=== PATIENT | male | born 1950 | race Caucasian/White ===

== ENCOUNTER → 2016-05-28 | Day surgery (SDC) | payer MEDICARE, MEDICAID ==
[~2016-05-28] MED LIST: *HYDROmorphone PF 1 MG VIAL PERIprocedural Use ONLY ONE; ACETAMINOPHEN 1000 MG/100 ML VIAL IV ONE; ALBUAER3 INH; BACT2OIN TOPICAL; BO60R RECTAL; CEPH-459 PO; CIPR-9 PO; CLIN1CAP6 PO; DILA2TAB2 PO; FISH1000 PO; GABA100C4 PO; GEMF600T PO; GLUCTAB6 PO; HYDROmorphone HCL PF 1 MG/ML VIAL IV PUSH ONE; HYDROmorphone HCL PF 1 MG/ML VIAL IV PUSH PRN; HYDROmorphone HCL PF 1 MG/ML VIAL ONE; INSULIN HUMAN REGULAR 1,000 UNITS/10 ML VIAL SQ PRN; IOHEXOL 350 MG/ML 50 ML BTL (for RAD DIAG) OTHER ONE; LACTATED RINGER'S 1000 ML IV SCH; LEVEMIR SQ; LISI10TA3 PO; METOPROLOL TARTRATE 25 MG TAB PO PRN; MIDAZOLAM HCL 2 MG/2 ML VIAL ONE; MORPHINE SULFATE 4 MG/ML INJ ONE; MULT1TAB84 PO; NOVOLOGP2 SQ; ONDANSETRON HCL 4 MG/2 ML VIAL IV PUSH ONE; ONDANSETRON HCL 4 MG/2 ML VIAL IV PUSH PRN; ONDANSETRON HCL 4 MG/2 ML VIAL ONE; OXYB5TAB10 PO; OXYC1CAP PO; PIOG15TA5 PO; PROPOFOL 200 MG/20 ML AMP IV ONE; SODIUM CHLORID 0.9% 500 ML IV SCH; SYMB160A INH; TAMS5CAP PO; TRAD5TAB PO; ZINC50TA PO; [UNRECOGNIZED DRUG - CODE] PO; [UNRECOGNIZED DRUG - CODE] TOP; ceFAZolin 1,000 MG/NS 100 ML IV SCH
[2016-05-28 12:08] VITALS: BP 158/100; PULSE 102; RESP 22; TEMP 98.8; O2SAT 99
[2016-05-28 12:38] LABS: AUTOMATED NEUTROPHIL # 4.9 TH/MM3 (1.8-7.7); BASOPHIL % 0.3 % (0.0-2.0); EOSINOPHIL % 0.7 % (0.0-4.0); HEMATOCRIT 36.2 % (39.0-51.0); LYMPH % 15.6 % (9.0-44.0); MEAN CELL VOLUME 87.6 FL (80.0-100.0); MEAN CORPUSCULAR HEMOGLOBIN 29.6 PG (27.0-34.0); MEAN CORPUSCULAR HGB CONC 33.8 % (32.0-36.0); MONO % 9.7 % (0.0-8.0); NEUT % 73.7 % (16.0-70.0); PLATELET COUNT 93 TH/MM3 (150-450); RED BLOOD COUNT 4.13 MIL/MM3 (4.50-5.90); RED CELL DISTRIBUTION WIDTH 13.9 % (11.6-17.2); WHITE BLOOD COUNT 6.6 TH/MM3 (4.0-11.0)
[2016-05-28 12:46] LABS: HEMO FLAGS AUTO DIFF
[2016-05-28 13:12] LABS: PLATELET ESTIMATE SMEAR LOW (NORMAL); PLATELET MORPHOLOGY NORMAL (NORMAL); SCAN/DIFF AUTO DIFF CONFIRMED
[2016-05-28] MEDS: *HYDROmorphone PF 1 MG VIAL PERIprocedural Use ONLY ONE ×2 (16:28→17:08)
[2016-05-28 18:00] VITALS: BP 108/84; PULSE 86; RESP 20; TEMP 97.5; O2SAT 99
--- NOTE | 2016-05-29 07:13 | MP ---
cc: CURTIS NIELSEN MD DATE OF SURGERY 05/28/2016 INDICATIONS FOR PROCEDURE This is the case of a pleasant 66-year-old gentleman with a history of bladder cancer causing right distal ureteral obstruction who is status post transurethral resection of the tumor as well as resection of some tumor involvement of the distal right ureter. The patient does have a double-J stent and presents today for cystoscopy, removal of the right double-J stent and right retrograde pyelogram. PREOPERATIVE DIAGNOSIS History of bladder cancer. POSTOPERATIVE DIAGNOSIS History of bladder cancer. ATTENDING SURGEON Curtis Nielsen MD ANESTHESIA General PROCEDURES PERFORMED Cystoscopy, right retrograde pyelogram, right ureteral stent removal. COMPLICATIONS None ESTIMATED BLOOD LOSS None SPECIMENS Right ureteral stent which was discarded. OPERATIVE PROCEDURE IN DETAIL The patient was brought to the operating room suite and placed supine on the cystoscopy table. He was then placed under general anesthesia. He was then repositioned in the dorsal lithotomy position and prepped and draped in normal sterile fashion. After an appropriate time-out was undertaken, I proceeded with cystoscopic evaluation utilizing the rigid cystoscope with the 20-German sheath and the 30 degrees lens. The previously passed right double-J stent could be seen protruding from the right ureteral orifice. There was no evidence of any recurrent tumor formation. I then grasped the end of the stent with a flexible grasping forceps and removed it in its entirety. It was carefully inspected to ascertain that no stent fragments were left behind. Next, a 6-German open-ended ureteral catheter was utilized to perform a right retrograde pyelogram. There was prompt filling and drainage of the collecting system. The bladder was drained of all irrigant fluid and the cystoscope was withdrawn. The patient tolerated the procedures without complications and was transferred to the PACU in satisfactory condition. MD JORID Nino/WILMER /4:29 PM /7:06 AM
== END | disposition home or self-care (01) ==
LOC: HSDC 11:51
PROVIDERS: ATTEND Urology
DX: Z85.51 Personal history of malignant neoplasm of bladder (principal); N13.5 Crossing vessel and stricture of ureter without hydronephrosis
CPT/HCPCS: 00910; 52005; 74420; 85025; C1769; J0131; J0690; J1170; J1815; J2250; J2270; J2405; J3010; J7120; Q9967

== ENCOUNTER 2016-08-26 00:47 | Emergency (ER) | payer MEDICARE, MEDICAID ==
[~2016-08-26] VITALS: Ht 185.4 cm; Wt 90.0 kg
[~2016-08-26 00:47] MED LIST changes: -*HYDROmorphone PF 1 MG VIAL PERIprocedural Use ONLY ONE; -ACETAMINOPHEN 1000 MG/100 ML VIAL IV ONE; -BACT2OIN TOPICAL; -CLIN1CAP6 PO; -HYDROmorphone HCL PF 1 MG/ML VIAL IV PUSH ONE; -HYDROmorphone HCL PF 1 MG/ML VIAL IV PUSH PRN; -HYDROmorphone HCL PF 1 MG/ML VIAL ONE; -INSULIN HUMAN REGULAR 1,000 UNITS/10 ML VIAL SQ PRN; -IOHEXOL 350 MG/ML 50 ML BTL (for RAD DIAG) OTHER ONE; -LACTATED RINGER'S 1000 ML IV SCH; -METOPROLOL TARTRATE 25 MG TAB PO PRN; -MIDAZOLAM HCL 2 MG/2 ML VIAL ONE; -MORPHINE SULFATE 4 MG/ML INJ ONE; -ONDANSETRON HCL 4 MG/2 ML VIAL IV PUSH ONE; -ONDANSETRON HCL 4 MG/2 ML VIAL IV PUSH PRN; -ONDANSETRON HCL 4 MG/2 ML VIAL ONE; -OXYC1CAP PO; -PROPOFOL 200 MG/20 ML AMP IV ONE; -SODIUM CHLORID 0.9% 500 ML IV SCH; -ceFAZolin 1,000 MG/NS 100 ML IV SCH
[2016-08-26 00:50] VITALS: BP 152/85; PULSE 100; RESP 20; TEMP 98.5; O2SAT 100
[2016-08-26] MEDS ORDERED: BACT2OIN TOPICAL (19:59)
[2016-08-26] MEDS ORDERED: CLIN1CAP6 PO (19:59)
[2016-08-26] MEDS ORDERED: OXYC1CAP PO (19:59)
== END 2016-08-26 02:29 | disposition left against medical advice (07) ==
LOC: NED 00:47
DX: L98.8 Other specified disorders of the skin and subcutaneous tissue (principal)
CPT/HCPCS: 99281

== ENCOUNTER 2016-08-26 18:35 | Emergency (ER) | payer MEDICARE, MEDICAID ==
[~2016-08-26] VITALS: Ht 185.4 cm; Wt 92.7 kg
[2016-08-26 18:40] VITALS: TEMP 97.8; O2SAT 98
[2016-08-26 18:45] VITALS: BP 149/96; PULSE 107; RESP 16; TEMP 97.8; O2SAT 98
[2016-08-26 19:03] VITALS: BP 140/87; PULSE 100; RESP 22; O2SAT 95
[2016-08-26] MEDS ORDERED: SULFAMETHOXAZOLE-TRIMETHOPRIM DS 800-160 MG TAB PO ONE (19:15)
[2016-08-26] MEDS ORDERED: LIDOCAINE HCL 1% 30 ML VIAL INFIL ONE (19:15)
[2016-08-26] MEDS ORDERED: CEPHALEXIN MONOHYDRATE 500 MG CAP PO ONE (19:15)
--- NOTE | 2016-08-26 19:26 | PD ---
HPI Chief Complaint: Bite or Sting Time Seen by Provider: 19:04 Travel History International Travel<30 days: No Contact w/Intl Traveler<30days: No Traveled to known affect area: No History of Present Illness HPI Patient is a 66-year-old male who presents to emergency room with complaints of bug bite to his left forearm. Patient reports that he was working outside on his home 2 days ago and was bit by a bug. Reports that the area of bug bite did get bigger today and came to a head, reports that one of his family members popped the "abscess" and had pus come out of the area. Reports that "it was too painful for her to remove the pus so I had to come here for drainage." Patient reports that his tetanus is up-to-date and he has had one in the last 4 years. The patient denies fevers or chills, reports pain and swelling to the area of his bug bite. The patient reports that he is a diabetic and the that his blood sugar has been controlled. PFSH Past Medical History Hx Anticoagulant Therapy: Yes (asa 81mg) Arthritis: Yes (joints are painful) Asthma: No Autoimmune Disease: No Blood Disorders: Yes (VARICES,BANDING IN PAST WITH ERCP) Anxiety: Yes Depression: Yes Heart Rhythm Problems: No Cancer: Yes (BLADDER) Cardiac Catheterization: Yes Cardiovascular Problems: Yes (htn on meds) High Cholesterol: Yes Chemotherapy: No Chest Pain: No Congestive Heart Failure: No Cirrhosis: Yes (END STAGE LIVER DISEASE) COPD: Yes Cerebrovascular Accident: No Diabetes: Yes Patient Takes Glucophage: No Diminished Hearing: No Deep Vein Thrombosis: Yes Endocrine: No Gastrointestinal Disorders: Yes GERD: No Genitourinary: No Headaches: No Hepatitis: Yes (C) Hiatal Hernia: No Hypertension: Yes Immune Disorder: No Implanted Vascular Access Dvce: No Kidney Stones: Yes (removed) Medical other: No Musculoskeletal: Yes (ARTHRITIS) Neurologic: Yes (NEUROPATHY LEGS) Psychiatric: No Reproductive: No Respiratory: Yes (COPD) Immunizations Current: Yes Migraines: No Pancreatitis: Yes Radiation Therapy: No Renal Failure: No Seizures: No Sickle Cell Disease: No Sleep Apnea: No Thyroid Disease: No Ulcer: No Past Surgical History Abdominal Surgery: Yes (REPAIR OF SPLEEN) AICD: No Appendectomy: Yes Arteriovenous Shunt: No Body Medical Devices: PT DENIES Cardiac Surgery: No Cholecystectomy: Yes Ear Surgery: No Endocrine Surgery: No Eye Surgery: No Genitourinary Surgery: Yes (RENAL STENTS,) Insulin Pump: No Joint Replacement: No Neurologic Surgery: Yes (BACK SURGERY X 2) Oral Surgery: No Pacemaker: No Thoracic Surgery: No Tympanostomy Tube: Yes Other Surgery: Yes (ercp banding) Social History Alcohol Use: No Tobacco Use: Yes (6 cigs) Substance Use: Yes (MARIJUNANA) Allergies-Medications (Allergen,Severity, Reaction): Coded Allergies: Codeine (Verified Allergy, Severe, breathing probs, 08/26/16) Iodinated Contrast Media (Verified Allergy, Severe, rash/flush, 08/26/16) Stadol (Verified Allergy, Severe, rash, 08/26/16) Talwin (Verified Allergy, Severe, breathing probs, 08/26/16) Reported Meds & Prescriptions Reported Meds & Active Scripts Active Bactroban Topical (Mupirocin) 2% Oint 1 Appl TOPICAL BID Oxycodone (Oxycodone HCl) 5 Mg Cap 5 Mg PO Q6H PRN Clindamycin (Clindamycin HCl) 300 Mg Cap 300 Mg PO TID 10 Days Levemir Inj (Insulin Detemir) 1,000 unit/ 10 ML Vial 30 Units SQ HS Please make a follow-up appointment in 3-4 weeks for further Rx renewals. Do not mix with any other Insulin. Pioglitazone (Pioglitazone HCl) 15 Mg Tab 15 Mg PO DAILY Dilaudid (Hydromorphone HCl) 2 Mg Tab 2 Mg PO Q6H PRN Tradjenta (Linagliptin) 5 Mg Tab 5 Mg PO DAILY Novolog Inj (Insulin Aspart) 1,000 Unit/10 Ml Vial 2-12 Units SQ ACHS Max dose at bedtime ( ) units; sugars less than 70,(0) units; sugars 150-199,(2) units; sugars 200-249,(4) units; sugars 250-299,(7) units; sugars 300-349,(10) units; sugars greater than 349,(12)units Reported Liqui-E Liq (Vitamin E) 400 Unit/15 Ml Liq 15 Ml TOP HS Multivitamin Adults (Multiple Vitamins W/ Minerals) 1 Tab 1 Tab PO DAILY Glucosamine Chondroitin (Kxpttdukwhg-Ehcakwlgtxv-Gkk C-) 1 Tab Tab 1 Tab PO BID Vitamin A 10,000 Unit Cap 10,000 Units PO DAILY Fish Oil ([place]-3 Fatty Acids) 1,000 Mg Cap 1 Cap PO BID Zinc 50 Mg Tab 50 Mg PO DAILY Gemfibrozil 600 Mg Tab 600 Mg PO BIDAC Take 30 minutes prior to breakfast and dinner. Symbicort Inh (Budesonide/Formoterol Fumarate) 160-4.5 Mcg/Act Aero 1 Puff INH Q12HR Lisinopril 10 Mg Tab 10 Mg PO DAILY Gabapentin 100 Mg Cap 100 Mg PO TID Proair Hfa 8.5 GM Inh (Albuterol Sulfate) 90 Mcg/Act Aer 1 Puff INH Q4H PRN 108 mcg/actuation Review of Systems General / Constitutional: No: Fever Eyes: No: Visual changes HENT: No: Headaches Cardiovascular: No: Chest Pain or Discomfort Respiratory: No: Shortness of Breath Gastrointestinal: No: Abdominal Pain Genitourinary: No: Dysuria Musculoskeletal: No: Pain Skin: Positive Other (abscess to left forearm), No Rash Neurologic: No: Weakness Psychiatric: No: Depression Endocrine: No: Polydipsia Hematologic/Lymphatic: No: Easy Bruising Physical Exam Narrative GENERAL: Mild distress, patient appears to be in pain SKIN: Focused skin assessment warm/dry. HEAD: Atraumatic. Normocephalic. NECK: Trachea midline. No JVD. CARDIOVASCULAR: Regular rate and rhythm. No murmur appreciated. RESPIRATORY: No accessory muscle use. Clear to auscultation. Breath sounds equal bilaterally. GASTROINTESTINAL: Abdomen soft, non-tender, nondistended. MUSCULOSKELETAL: No obvious deformities. No clubbing. No cyanosis. Patient with a 2 x 3 cm fluctuant abscess with white thick drainage to left forearm, compartments are soft, patient with good pulses, neurovascularly intact. Right upper extremity with normal exam. NEUROLOGICAL: Awake and alert. Normal speech. PSYCHIATRIC: Appropriate mood and affect; insight and judgment normal. Data Data Last Documented VS Vital Signs Date Time Temp Pulse Resp B/P Pulse Ox O2 Delivery O2 Flow Rate FiO2 08/26/16 19:03 22 08/26/16 19:03 100 140/87 95 Room Air 08/26/16 18:45 97.8 Orders Cephalexin (Keflex) (08/26/16 19:15) Sulfamet-Trimeth Ds 800-160 Mg (Bactrim (08/26/16 19:15) Oxycodone (Roxicodone) (08/26/16 19:30) Lidocaine 1% Inj (50 Ml) (Xylocaine 1% I (08/26/16 19:30) Abscess Culture And Gram Stain (08/26/16 20:06) [facility] Medical Decision Making Medical Screen Exam Complete: Yes Emergency Medical Condition: Yes Interpretation(s) Vital Signs Date Time Temp Pulse Resp B/P Pulse Ox O2 Delivery O2 Flow Rate FiO2 08/26/16 19:03 22 08/26/16 19:03 100 22 140/87 95 Room Air 08/26/16 18:45 97.8 107 16 149/96 98 Differential Diagnosis Bug bite with abscess Narrative Course Patient is a 66-year-old male who was apparently bit by a bug 2 days ago while he was working outside in his house. Patient reports that the bug bite became swollen and came to a head today, one of his family members attempted to drain this abscess. Patient reports that this attempt was too painful, patient here for drainage of abscess as well as for antibiotics. Patient reports that he has had no fevers or chills, his tetanus is up-to-date. Patient is a diabetic, reports that his blood sugar has been controlled. Patient with fluctuant area of abscess to his left forearm, will drain the abscess and I&D. We'll start patient on antibiotics. Discussed need for patient to return to emergency room and 48 hours for wound check. Signs and symptoms of when to return to the emergency room was reviewed patient in detail. He will return to emergency room earlier if he notices any streaking, fevers or chills, progressing symptoms. Patient tolerated procedure well Please note: Patient has tolerated oxycodone as well as Dilaudid in the past, codeine does make him itch - he has never experienced respiratory distress or compromise with codeine. Patient was initially given Bactrim as well as Keflex for his abscess, patient now tells me that his doctors do not want to take Bactrim, will change his prescription to clindamycin. Patient understands need to take plenty probiotics as well as eat plenty of yogurt with his antibiotic as concern for C. difficile. Procedures Procedure Narrative INCISION AND DRAINAGE OF ABSCESS: abscess to left forearm: The area was prepped and was sterilely draped. A subcutaneous wheal of 1 % Xylocaine with a total number 5 mL was used to anesthetize the area properly. A number 11scalpel was used to make a 0.5 cm incision across the area of the abscess. The abscess was drained, complex loculations were broken down, and irrigated with normal saline. Cultures were obtained. Sterile dressing applied. Diagnosis Primary Impression: Abscess of forearm, left Patient Instructions: Narcotic given in the ED, General Instructions Additional Instructions: Please return to the emergency room or your primary care doctor in 48 hours for wound check Please take all antibiotics as prescribed Please return to emergency room earlier if you develop fevers or chills or noticed any streaking or redness up your arm Return to emergency room as needed Please keep area clean and dry and covered at all times Please take a probiotic or eat plenty of yogurt with antibiotic. Med/Other Pt SpecificInfo: Prescription(s) given Scripts Mupirocin Topical (Bactroban Topical)2% Oint1 Appl TOPICAL BID #1 TUBE Ref 0 Prov:Aisha Hamm DO 08/26/16 Oxycodone 5 Mg Cap5 Mg PO Q6H PRN (PAIN) #7 CAP Ref 0 Prov:Aisha Hamm DO 08/26/16 Clindamycin 300 Mg [id number] Mg PO TID 10 Days Ref 0 Prov:Aisha Hamm DO 08/26/16 Disposition: 01 DISCHARGE HOME Condition: Stable Aisha Hamm DO Aug 26, 2016 19:26
[2016-08-26] MEDS ORDERED: LIDOCAINE HCL 1% 50 ML VIAL INFIL ONE (19:30)
[2016-08-26] MEDS ORDERED: OXYC1CAP PO (19:59)
[2016-08-26] MEDS ORDERED: BACT2OIN TOPICAL (19:59)
[2016-08-26] MEDS ORDERED: CLIN1CAP6 PO (19:59)
[2016-08-26 20:36] VITALS: BP 140/87
== END 2016-08-26 20:38 | disposition home or self-care (01) ==
LOC: PHED 18:35
DX: L02.414 Cutaneous abscess of left upper limb (principal); B96.1 Klebsiella pneumoniae [K. pneumoniae] as the cause of diseases classified elsewhere; E11.9 Type 2 diabetes mellitus without complications; E78.00 Pure hypercholesterolemia, unspecified; K74.60 Unspecified cirrhosis of liver; I10 Essential (primary) hypertension; J44.9 Chronic obstructive pulmonary disease, unspecified; F12.10 Cannabis abuse, uncomplicated; Z72.0 Tobacco use; Z79.82 Long term (current) use of aspirin; Z79.4 Long term (current) use of insulin
CPT/HCPCS: 10060; 87070; 87077; 87186; 87205

== ENCOUNTER 2017-01-29 05:05 | Inpatient (IN) | payer MEDICARE, OTHER ==
[2017-01-29] VITALS (11 sets, daily range): BP systolic 102–148; BP diastolic 45–81; PULSE 82–109; RESP 18–26; TEMP 97.2–98.9; O2SAT 95–100
[~2017-01-29] VITALS: Ht 185.4 cm; Wt 90.0 kg
[~2017-01-29 05:05] MED LIST changes: +BACT2OIN TOPICAL; -BO60R RECTAL; -CEPH-459 PO; -CIPR-9 PO; +CLIN1CAP6 PO; -OXYB5TAB10 PO; +OXYC1CAP PO; -TAMS5CAP PO
[2017-01-29] MEDS ORDERED: SODIUM CHLOR 0.9% 1000 ML INJ 1,000 ML IV SCH (05:10)
[2017-01-29] MEDS ORDERED: KETOROLAC TROMETHAMINE 30 MG/ML (IVP) VIAL IVP ONE (05:15)
[2017-01-29] MEDS ORDERED: DICYCLOMINE HCL 20 MG/2 ML VIAL IM ONE (05:15)
[2017-01-29] MEDS ORDERED: ALUMINUM/MAGNESIUM/SIMETH 30 ML CUP PO ONE (05:15)
[2017-01-29] MEDS ORDERED: LIDOCAINE VISCOUS 2% SOLN 15 ML UDC PO ONE (05:15)
--- NOTE | 2017-01-29 05:18 | PD ---
HPI Chief Complaint: Abdominal Pain Time Seen by Provider: 05:10 Travel History International Travel<30 days: No Contact w/Intl Traveler<30days: No Traveled to known affect area: No History of Present Illness HPI Patient is a 66-year-old male presents emergency department for evaluation of abdominal pain nausea vomiting. He has a history of diabetes and recurrent pancreatitis. Patient states a few hours ago he had onset of abdominal pain and generalized aching cramping area states he took his Dilaudid at home if this is not helping. He also has a history of hepatitis C and hepatitis B. Denies any fevers. He is homeless. Intermittent compliance with diabetic therapy. PFSH Past Medical History Hx Anticoagulant Therapy: Yes (asa 81mg) Arthritis: Yes (joints are painful) Asthma: No Autoimmune Disease: No Blood Disorders: Yes (VARICES,BANDING IN PAST WITH ERCP) Anxiety: Yes Depression: Yes Heart Rhythm Problems: No Cancer: Yes (BLADDER) Cardiac Catheterization: Yes Cardiovascular Problems: Yes (htn on meds) High Cholesterol: Yes Chemotherapy: No Chest Pain: No Congestive Heart Failure: No Cirrhosis: Yes (END STAGE LIVER DISEASE) COPD: Yes Cerebrovascular Accident: No Diabetes: Yes Diminished Hearing: No Deep Vein Thrombosis: Yes Endocrine: No Gastrointestinal Disorders: Yes GERD: No Genitourinary: No Headaches: No Hepatitis: Yes (C) Hiatal Hernia: No Hypertension: Yes Immune Disorder: No Implanted Vascular Access Dvce: No Kidney Stones: Yes (removed) Musculoskeletal: Yes (ARTHRITIS) Neurologic: Yes (NEUROPATHY LEGS) Psychiatric: No Reproductive: No Respiratory: Yes Immunizations Current: Yes Migraines: No Pancreatitis: Yes Radiation Therapy: No Renal Failure: No Seizures: No Sickle Cell Disease: No Sleep Apnea: No Thyroid Disease: No Ulcer: No Past Surgical History Abdominal Surgery: Yes (REPAIR OF SPLEEN) AICD: No Appendectomy: Yes Arteriovenous Shunt: No Body Medical Devices: PT DENIES Cardiac Surgery: No Cholecystectomy: Yes Ear Surgery: No Endocrine Surgery: No Eye Surgery: No Genitourinary Surgery: Yes (RENAL STENTS,) Insulin Pump: No Joint Replacement: No Neurologic Surgery: Yes (BACK SURGERY X 2) Oral Surgery: No Pacemaker: No Thoracic Surgery: No Tympanostomy Tube: Yes Other Surgery: Yes (ercp banding) Social History Alcohol Use: No Tobacco Use: Yes (6 cigs) Substance Use: Yes (MARIJUNANA) Allergies-Medications (Allergen,Severity, Reaction): Coded Allergies: Iodinated Contrast- Oral and IV Dye (Unverified Allergy, Severe, rash/ flush, 01/29/17) butorphanol (Unverified Allergy, Severe, rash, 01/29/17) codeine (Unverified Allergy, Severe, breathing probs, 01/29/17) pentazocine (Unverified Allergy, Severe, breathing probs, 01/29/17) Reported Meds & Prescriptions Reported Meds & Active Scripts Active Levemir Inj (Insulin Detemir) 1,000 unit/ 10 ML Vial 30 Units SQ HS Please make a follow-up appointment in 3-4 weeks for further Rx renewals. Do not mix with any other Insulin. Pioglitazone (Pioglitazone HCl) 15 Mg Tab 15 Mg PO DAILY Dilaudid (Hydromorphone HCl) 2 Mg Tab 2 Mg PO Q6H PRN Tradjenta (Linagliptin) 5 Mg Tab 5 Mg PO DAILY Novolog Inj (Insulin Aspart) 1,000 Unit/10 Ml Vial 2-12 Units SQ ACHS Max dose at bedtime ( ) units; sugars less than 70,(0) units; sugars 150-199,(2) units; sugars 200-249,(4) units; sugars 250-299,(7) units; sugars 300-349,(10) units; sugars greater than 349,(12)units Reported Glucosamine Chondroitin (Lfjptykktrq-Fpnxaisboot-Dsb C-) 1 Tab Tab 1 Tab PO BID Fish Oil ([place]-3 Fatty Acids) 1,000 Mg Cap 1 Cap PO BID Gemfibrozil 600 Mg Tab 600 Mg PO BIDAC Take 30 minutes prior to breakfast and dinner. Symbicort Inh (Budesonide/Formoterol Fumarate) 160-4.5 Mcg/Act Aero 1 Puff INH Q12HR Lisinopril 10 Mg Tab 10 Mg PO DAILY Gabapentin 100 Mg Cap 100 Mg PO TID Proair Hfa 8.5 GM Inh (Albuterol Sulfate) 90 Mcg/Act Aer 1 Puff INH Q4H PRN 108 mcg/actuation Review of Systems Except as stated in HPI: all other systems reviewed are Neg Physical Exam Narrative GENERAL: Well-developed thin, unkempt, appears uncomfortable but nontoxic. SKIN: Focused skin assessment warm/dry. HEAD: Atraumatic. Normocephalic. EYES: Pupils equal and round. No scleral icterus. No injection or drainage. ENT: No nasal bleeding or discharge. Mucous membranes pink and dry. Edentulous. NECK: Trachea midline. No JVD. CARDIOVASCULAR: Regular rate and rhythm. No murmur appreciated. RESPIRATORY: No accessory muscle use. Clear to auscultation. Breath sounds equal bilaterally. GASTROINTESTINAL: Abdomen soft, voluntary guarding, minimal percussive tenderness. nondistended. Hepatic and splenic margins not palpable. Bowel sounds present but hypoactive. MUSCULOSKELETAL: No obvious deformities. No clubbing. No cyanosis. No edema. NEUROLOGICAL: Awake and alert. No obvious cranial nerve deficits. Motor grossly within normal limits. Normal speech. PSYCHIATRIC: Appropriate mood and affect; insight and judgment normal. Data Data Last Documented VS Vital Signs Date Time Temp Pulse Resp B/P (MAP) Pulse Ox O2 Delivery O2 Flow Rate FiO2 01/29/17 05:14 18 01/29/17 05:14 98 Room Air 01/29/17 05:11 98.5 96 139/78 (98) Orders Orders Complete Blood Count With Diff (01/29/17 05:10) Comprehensive Metabolic Panel (01/29/17 05:10) Lipase (01/29/17 05:10) Lactic Acid (01/29/17 05:10) Prothrombin Time / Inr (Pt) (01/29/17 05:10) Act Partial Throm Time (Ptt) (01/29/17 05:10) Urinalysis - C+S If Indicated (01/29/17 05:10) Iv Access Insert/Monitor (01/29/17 05:10) Ecg Monitoring (01/29/17 05:10) Oximetry (01/29/17 05:10) Sodium Chlor 0.9% 1000 Ml Inj (Ns 1000 M (01/29/17 05:10) Sodium Chloride 0.9% Flush (Ns Flush) (01/29/17 05:15) Electrocardiogram (01/29/17 05:10) Dicyclomine Inj (Bentyl Inj) (01/29/17 05:15) Ketorolac Inj (Toradol Inj) (01/29/17 05:15) Al-Mag Hy-Si 40-40-4 Mg/Ml Liq (Mag-Al P (01/29/17 05:15) Lidocaine 2% Viscous (Xylocaine 2% Visco (01/29/17 05:15) Abdomen, Flat & Upright (01/29/17 ) Chest, Single Ap (01/29/17 ) Sodium Chlor 0.9% 1000 Ml Inj (Ns 1000 M (01/29/17 06:30) Sodium Chlor 0.9% 1000 Ml Inj (Ns 1000 M (01/29/17 06:30) Hydromorphone Pf Inj (Dilaudid Pf Inj) (01/29/17 06:30) Blood Culture (01/29/17 06:18) Vancomycin Inj (Vancomycin Inj) (01/29/17 06:30) Piperacil-Tazo 4.5 Gm Premix (Zosyn 4.5 (01/29/17 06:30) Metronidazole 500 Mg Inj (Flagyl 500 Mg (01/29/17 06:30) Beta Hydroxybutyrate (Acetone) (01/29/17 06:20) Diphenhydramine Inj (Benadryl Inj) (01/29/17 06:30) Methylprednisolone So Succ Inj (Solumedr (01/29/17 06:30) Sodium Chlor 0.9% 1000 Ml Inj (Ns 1000 M (01/29/17 06:30) Ct Abd/Pel W/O Iv Contrast (01/29/17 ) Osmolality,Serum (01/29/17 06:26) Blood Gas Venous (Vbg) (01/29/17 06:27) Admit Order (Ed Use Only) (01/29/17 ) Labs Laboratory Tests Test 01/29/17 04:50 01/29/17 06:45 01/29/17 06:55 White Blood Count 14.2 TH/MM3 Red Blood Count 4.80 MIL/MM3 Hemoglobin 13.9 GM/DL Hematocrit 44.6 % Mean Corpuscular Volume 93.0 FL Mean Corpuscular Hemoglobin 29.1 PG Mean Corpuscular Hemoglobin Concent 31.3 % Red Cell Distribution Width 13.6 % Platelet Count 146 TH/MM3 Mean Platelet Volume 9.1 FL Neutrophils (%) (Auto) 82.5 % Lymphocytes (%) (Auto) 8.1 % Monocytes (%) (Auto) 9.0 % Eosinophils (%) (Auto) 0.2 % Basophils (%) (Auto) 0.2 % Neutrophils # (Auto) 11.7 TH/MM3 Lymphocytes # (Auto) 1.2 TH/MM3 Monocytes # (Auto) 1.3 TH/MM3 Eosinophils # (Auto) 0.0 TH/MM3 Basophils # (Auto) 0.0 TH/MM3 CBC Comment AUTO DIFF Differential Comment AUTO DIFF CONFIRMED Platelet Estimate LOW Platelet Morphology Comment NORMAL Red Cell Morphology Comment NORMAL Prothrombin Time 12.5 SEC Prothromb Time International Ratio 1.1 RATIO Activated Partial Thromboplast Time 28.7 SEC Urine Color YELLOW Urine Turbidity CLEAR Urine pH 5.5 Urine Specific [place] 1.026 Urine Protein NEG mg/dL Urine Glucose (UA) 1000 OR GREATER mg/dL Urine Ketones NEG mg/dL Urine Occult Blood SMALL Urine Nitrite NEG Urine Bilirubin NEG Urine Leukocyte Esterase NEG Urine WBC 0-2 /hpf Urine Squamous Epithelial Cells 0-5 /hpf Urine Amorphous Sediment SMALL Microscopic Urinalysis Comment CULT NOT INDICATED Blood Urea Nitrogen 45 MG/DL Creatinine 3.20 MG/DL Random Glucose 1256 MG/DL Total Protein 8.2 GM/DL Albumin 3.2 GM/DL Calcium Level 8.2 MG/DL Alkaline Phosphatase 111 U/L Aspartate Amino Transf (AST/SGOT) 35 U/L Alanine Aminotransferase (ALT/SGPT) 58 U/L Total Bilirubin 2.2 MG/DL Sodium Level 113 MEQ/L Potassium Level 4.9 MEQ/L Chloride Level 73 MEQ/L Carbon Dioxide Level 23.3 MEQ/L Anion Gap 17 MEQ/L Estimat Glomerular Filtration Rate 20 ML/MIN Lactic Acid Level 4.2 mmol/L Lipase 323 U/L Blood Gas Puncture Site PIV Blood Gas Patient Temperature 98.6 Venous Blood pH 7.34 Venous Blood Partial Pressure CO2 45 mmHg Venous Blood Partial Pressure O2 51 mmHg Venous Blood HCO3 23 mmol/L Venous Blood Oxygen Saturation 77 % Venous Blood Oxygen Content 14.7 Vol % Venous Blood Base Excess -1.6 mmol/L Oxygen Delivery Device RA Blood Gas Inspired Oxygen 21 % [facility] Medical Decision Making Medical Screen Exam Complete: Yes Emergency Medical Condition: Yes Differential Diagnosis Acute abdomen, pancreatitis, cholecystitis, HHS, DKA, electrolyte abnormality. Narrative Course Patient roomed emergency department, initially trying Toradol avoid narcotics, patient's labs are returning and has an elevated white blood cell count, Dilaudid ordered. Consideration is given to ischemic bowel disease and plan was initially for CTA abdomen. However the patient does have acute kidney injury significant elevation of his glucose with corrected sodium of 141. Calculated serum osmole is 312. Patient noncontrast CT of the abdomen and pelvis is been ordered. Aggressive fluid resuscitation with 3 L normal saline. Gives an abdominal tenderness blood cultures were drawn and he will be started on broad-spectrum antibiotics. His acute abdomen series does show mild ileus but no free air. I discussed the noncontrast CT abdomen with the radiologist educational/development assistant the patient does have some portal air. No pneumatosis intestinalis. No free air in the abdomen. I suspicion for ischemic bowel disease remains, the patient was discussed with Dr. Jordan agrees with current management recommends holding heparin until the patient has been examined by him and recommends transfer to the main hospital for his evaluation. At this time I wholeheartedly agree. The patient is hemodynamically stable. He will be given a total of 3 L normal saline bolus in the emergency department vancomycin and Zosyn and Flagyl. The patient was discussed with Dr. Morton for admission to the surgical ICU who also agrees. Patient is stable for transport to the hospital this time. We'll do so an emergent fashion as I think he needs 6 PDA did surgical consult. EMS is being called for transportation. Critical Care Narrative Aggregate critical care time was 35 minutes. Time to perform other separately billable procedures was not included in the critical care time. My time did not include minutes spent treating any other patients simultaneously or on activities that did not directly contribute to the patient's treatment. The services I provided to this patient were to treat and/or prevent clinically significant deterioration that could result in: , Disability, Organ Failure I provided critical care services requiring my management, as noted below: Chart data review, documentation time, medication orders and management, vital sign assessments/reviewing monitor data, ordering and reviewing lab tests, ordering and interpreting/reviewing x-rays and diagnostic studies, care of the patient and discussion of the patient with the admitting physicians. Diagnosis Primary Impression: Abdominal pain Qualified Codes: R10.84 - Generalized abdominal pain Additional Impression: Hyperosmolar non-ketotic state in patient with type 2 diabetes mellitus Admitting Information Admitting Physician Requests: Admit Condition: Critical Michael Ram MD Jan 29, 2017 05:18
[2017-01-29 05:37] LABS: AUTOMATED NEUTROPHIL # 11.7 TH/MM3 (1.8-7.7); BASOPHIL % 0.2 % (0.0-2.0); EOSINOPHIL % 0.2 % (0.0-4.0); HEMATOCRIT 44.6 % (39.0-51.0); LYMPH % 8.1 % (9.0-44.0); LYMPHOCYTE # 1.2 TH/MM3 (1.0-4.8); MEAN CORPUSCULAR HEMOGLOBIN 29.1 PG (27.0-34.0); MEAN CORPUSCULAR HGB CONC 31.3 % (32.0-36.0); NEUT % 82.5 % (16.0-70.0); PLATELET COUNT 146 TH/MM3 (150-450); RED CELL DISTRIBUTION WIDTH 13.6 % (11.6-17.2); WHITE BLOOD COUNT 14.2 TH/MM3 (4.0-11.0)
[2017-01-29 05:47] LABS: BLOOD, URINE SMALL (NEG); GLUCOSE,URINE 1000 OR GREATER mg/dL (NEG); HEMO FLAGS AUTO DIFF; KETONE, URINE NEG (NEG); NITRITE,URINE NEG (NEG); PH, URINE 5.5 (5.0-8.5)
[2017-01-29 05:57] LABS: URINE COLOR YELLOW (YELLW/STRAW)
[2017-01-29 05:59] LABS: COMMENT (UR) CULT NOT INDICATED; CULTURE IF INDICATED CULT NOT INDICATED; SQUAMOUS EPITHELIAL CELL URINE 0-5 /hpf (0-5); WBC, URINE 0-2 /hpf (0-5)
[2017-01-29 06:09] LABS: PLATELET ESTIMATE SMEAR LOW (NORMAL)
[2017-01-29 06:10] LABS: PLATELET MORPHOLOGY NORMAL (NORMAL); SCAN/DIFF AUTO DIFF CONFIRMED
--- NOTE | 2017-01-29 06:12 | RADRPT ---
EXAM DATE/TIME: 01/29/2017 05:52 [facility] COMPARISON: CHEST SINGLE AP, September 08, 2015, 14:25. INDICATIONS : Chest pain. MEDICAL HISTORY : None. SURGICAL HISTORY : None. ENCOUNTER: Initial ACUITY: 1 day PAIN SCORE: 7/10 LOCATION: Bilateral chest FINDINGS: No focal consolidation or effusion. Tortuous aorta. Heart size normal. Remote left rib fractures. CONCLUSION: 1. No acute findings. Theodore Mckay MD on January 29, 2017 at 6:11 Board Certified Radiologist. This report was verified electronically.
--- NOTE | 2017-01-29 06:14 | RADRPT ---
EXAM DATE/TIME: 01/29/2017 05:57 [facility] COMPARISON: No previous studies available for comparison. INDICATIONS : Right lower abdominal pain. MEDICAL HISTORY : None. SURGICAL HISTORY : None. ENCOUNTER: Initial ACUITY: 1 day PAIN SCORE: 7/10 LOCATION: Right upper quadrant FINDINGS: Supine and upright views of the abdomen were performed. The abdominal bowel gas pattern is nonspecif ic with mild ileus. No obstruction or free air. Cholecystectomy clips right upper quadrant. CONCLUSION: 1. Mild ileus. No free air. Advanced degenerative changes in the lumbar spine. Theodore Mckay MD on January 29, 2017 at 6:11 Board Certified Radiologist. This report was verified electronically.
[2017-01-29 06:20] LABS: ALKALINE PHOSPHATASE 111 U/L (45-117); ALT (GPT) 58 U/L (12-78); ANION GAP 17 MEQ/L (5-15); AST (GOT) 35 U/L (15-37); BICARBONATE 23.3 MEQ/L (21.0-32.0); BLOOD UREA NITROGEN 45 MG/DL (7-18); CHLORIDE 73 MEQ/L (98-107); GLOMERULAR FILTRATION RATE 20 ML/MIN (>89); POTASSIUM 4.9 MEQ/L (3.5-5.1); TOTAL BILIRUBIN ADULT 2.2 MG/DL (0.2-1.0)
[2017-01-29 06:22] LABS: APTT (PATIENT) 28.7 SEC (24.3-30.1); INTERNATIONAL NORMALIZED RATIO 1.1 RATIO; PROTHROMBIN TIME - PATIENT 12.5 SEC (9.8-11.6); SODIUM (NA) 113 MEQ/L (136-145)
[2017-01-29] MEDS ORDERED: diphenhydrAMINE HCL 50 MG/ML VIAL IV PUSH ONE (06:30)
[2017-01-29] MEDS ORDERED: methylPREDNISolone SOD SUCC 125 MG/2 ML VIAL IV PUSH ONE (06:30)
[2017-01-29] MEDS ORDERED: PIPERACIL-TAZO 4.5 GM PREMIX 100 ML IV ONE (06:30)
[2017-01-29] MEDS ORDERED: metroNIDAZOLE 500 MG INJ 100 ML IV ONE (06:30)
[2017-01-29] MEDS ORDERED: HYDROmorphone HCL PF 2 MG/ML VIAL IV PUSH ONE (06:30)
[2017-01-29] MEDS ORDERED: VANCOMYCIN INJ 1,000 MG in SODIUM CHLOR 0.9% 250 ML INJ 250 ML IV ONE (06:30)
[2017-01-29] MEDS ORDERED: SODIUM CHLOR 0.9% 1000 ML INJ 1,000 ML IV ONE ×3 (06:30)
[2017-01-29 07:07] LABS: BLOOD GAS VENOUS BASE EXCESS -1.6 mmol/L (-2-2); BLOOD GAS VENOUS HCO3 23 mmol/L (22-26); BLOOD GAS VENOUS O2 CONTENT 14.7 Vol % (9.0-17.0); BLOOD GAS VENOUS O2 HGB SAT 77 % (70-76); BLOOD GAS VENOUS PCO2 45 mmHg (44-48); BLOOD GAS VENOUS PO2 51 mmHg (35-40); BLOOD GAS VENOUS pH 7.34 (7.360-7.400); CRITICAL VALUE NO; FIO2 21 %; OXYGEN DEVICE RA; TEMP CORR TO 98.6
[2017-01-29 07:08] LABS: DRAW SITE PIV; STAT YES
--- NOTE | 2017-01-29 07:32 | RADRPT ---
EXAM DATE/TIME: 01/29/2017 06:37 [facility] COMPARISON: CT ABDOMEN & PELVIS W/O CONTRAST, April 24, 2016, 17:26. INDICATIONS : Right lower abdomen pain today. ORAL CONTRAST: No oral contrast ingested. RADIATION DOSE: 12.78 CTDIvol (mGy) MEDICAL HISTORY : Hepatitis C. Hypertension. Carcinoma, bladder. SURGICAL HISTORY : Cholecystectomy. Appendectomy.spleen repair, renal stent ENCOUNTER: Initial ACUITY: 1 day PAIN SCALE: 9/10 LOCATION: Right lower quadrant TECHNIQUE: Volumetric scanning of the abdomen and pelvis was performed. Using automated exposure control and ad justment of the mA and/or kV according to patient size, radiation dose was kept as low as reasonably achievable to obtain optimal diagnostic quality images. DICOM format image data is available electro nically for review and comparison. FINDINGS: LOWER LUNGS: The visualized lower lungs are clear. LIVER: Scattered gas is identified throughout the liver. There is no evidence of biliary duct dilatation. Po stcholecystectomy clips are identified. SPLEEN: Normal size without lesion. PANCREAS: Within normal limits. KIDNEYS: Normal in size and shape. Renal collecting systems are mildly distended. ADRENAL GLANDS: Within normal limits. VASCULAR: Mild calcific atherosclerotic disease is identified. There is no calcification in the proximal superi or mesenteric artery. BOWEL/MESENTERY: Abnormal gas pattern is identified. Air-fluid levels are identified in the mid to distal ileum. There is pericecal inflammation and a small amount of extra intestinal gas. Wall thickening is identified in the distal ileum extending into the cecum. ABDOMINAL WALL: Within normal limits. RETROPERITONEUM: There is no lymphadenopathy. BLADDER: Moderately distended. No wall thickening or mass. REPRODUCTIVE: Within normal limits. INGUINAL: There is no lymphadenopathy or hernia. MUSCULOSKELETAL: Within normal limits for patient age. CONCLUSION: 1. Suspected ischemic bowel process involving the terminal ileum and cecum which is associated with p ortal gas in the liver. 2. No evidence of organized abscess. 3. Mild hydronephrosis and distended urinary bladder. Kelby Laurent MD on January 29, 2017 at 7:01 Board Certified Radiologist. This report was verified electronically.
[2017-01-29] MEDS ORDERED: MAGNESIUM HYDROXIDE SUSP 30 ML CUP PO PRN (07:45)
[2017-01-29] MEDS ORDERED: SENNOSIDES 8.6 MG TAB PO PRN (07:45)
[2017-01-29] MEDS ORDERED: BISACODYL 10 MG SUPP RECTAL PRN (07:45)
[2017-01-29] MEDS ORDERED: LACTULOSE SYRUP 20 GM/30 ML CUP PO PRN (07:45)
[2017-01-29] MEDS ORDERED: RESP: ALBUTEROL 2.5 MG/IPRATROPIUM 0.5 MG NEB (PRN) INH (07:45)
[2017-01-29] MEDS ORDERED: CHLORHEXIDINE GLUCONATE 2 % 1 PACK (2 CLOTHS) TOP PRN (07:45)
[2017-01-29] MEDS ORDERED: MISC INFORMATION OTHER ONE (07:45)
[2017-01-29] MEDS ORDERED: MISCELLANEOUS NURSING INFORMATION XX SCH (07:45)
[2017-01-29] MEDS ORDERED: DEXTROSE 50% IN WATER 50 ML VIAL(D50) IV PUSH PRN (07:45)
--- NOTE | 2017-01-29 07:53 | HHI.HP ---
HPI Service Critical Care Medicine Primary Care Physician No Primary Care Physician Admission Diagnosis Hyperosmolar, Nonketotic Syndrome. Exclude ischemic bowel. Diagnosis: Chief Complaint: Abdominal pain. Travel History International Travel<30 Days: No Contact w/Intl Traveler <30 Da: No Traveled to Known Affected Are: No History of Present Illness 66 y/o homeless man presents to [facility] with abdominal pain. Hx of cirrhosis with varices and bleeds. Pancreatitis and ERCP in past. Presents with glucose 1200 and normal bicarb. beta-hydroxybutyrate < 1.0. CT abdomen with portal vein air and suspicious cecum wall, likely early necrosis. On arrival to [facility] he has peritoneal irritation right side abdomen. Surgical history: 1. 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 2. Spleen repair. 3. Appendectomy. 4. Cholecystectomy Review of Systems Constitutional: DENIES: Diaphoretic episodes, Fatigue, Fever, Weight gain, Weight loss, Chills, Dizziness, Change in appetite, Night Sweats Endocrine: DENIES: Heat/cold intolerance, Polydipsia, Polyuria, Polyphagia Cardiovascular: DENIES: Chest pain, Palpitations, Syncope, Dyspnea on Exertion , PND, Lower Extremity Edema, Orthopnea, Claudication Gastrointestinal: COMPLAINS OF: Abdominal pain, Anorexia Past Family Social History Allergies: Coded Allergies: Iodinated Contrast- Oral and IV Dye (Unverified Allergy, Severe, rash/ flush, 01/29/17) butorphanol (Unverified Allergy, Severe, rash, 01/29/17) codeine (Unverified Allergy, Severe, breathing probs, 01/29/17) pentazocine (Unverified Allergy, Severe, breathing probs, 01/29/17) Past Medical History Past Medical History Hx Anticoagulant Therapy: Yes (asa 81mg) Arthritis: Yes (joints are painful) Asthma: No Autoimmune Disease: No Blood Disorders: Yes (VARICES,BANDING IN PAST WITH ERCP) Anxiety: Yes Depression: Yes Heart Rhythm Problems: No Cancer: Yes (BLADDER) Cardiac Catheterization: Yes Cardiovascular Problems: Yes (htn on meds) High Cholesterol: Yes Chemotherapy: No Chest Pain: No Congestive Heart Failure: No Cirrhosis: Yes (END STAGE LIVER DISEASE) COPD: Yes Cerebrovascular Accident: No Diabetes: Yes Diminished Hearing: No Deep Vein Thrombosis: Yes Endocrine: No Gastrointestinal Disorders: Yes GERD: No Genitourinary: No Headaches: No Hepatitis: Yes (C) Hiatal Hernia: No Hypertension: Yes Immune Disorder: No Implanted Vascular Access Dvce: No Kidney Stones: Yes (removed) Musculoskeletal: Yes (ARTHRITIS) Neurologic: Yes (NEUROPATHY LEGS) Psychiatric: No Reproductive: No Respiratory: Yes Immunizations Current: Yes Migraines: No Pancreatitis: Yes Radiation Therapy: No Renal Failure: No Seizures: No Sickle Cell Disease: No Sleep Apnea: No Thyroid Disease: No Ulcer: No Past Surgical History Abdominal Surgery: Yes (REPAIR OF SPLEEN) AICD: No Appendectomy: Yes Arteriovenous Shunt: No Body Medical Devices: PT DENIES Cardiac Surgery: No Cholecystectomy: Yes Ear Surgery: No Endocrine Surgery: No Eye Surgery: No Genitourinary Surgery: Yes (RENAL STENTS,) Insulin Pump: No Joint Replacement: No Neurologic Surgery: Yes (BACK SURGERY X 2) Oral Surgery: No Pacemaker: No Thoracic Surgery: No Tympanostomy Tube: Yes Other Surgery: Yes (ercp banding) Social History Alcohol Use: No Tobacco Use: Yes (6 cigs) Substance Use: Yes (MARIJUNANA) Allergies-Medications (Allergen,Severity, Reaction): Coded Allergies: Iodinated Contrast- Oral and IV Dye (Unverified Allergy, Severe, rash/ flush, 01/29/17) butorphanol (Unverified Allergy, Severe, rash, 01/29/17) codeine (Unverified Allergy, Severe, breathing probs, 01/29/17) pentazocine (Unverified Allergy, Severe, breathing probs, 01/29/17) Reported Meds & Prescriptions Reported Meds & Active Scripts Active Levemir Inj (Insulin Detemir) 1,000 unit/ 10 ML Vial 30 Units SQ HS Please make a follow-up appointment in 3-4 weeks for further Rx renewals. Do not mix with any other Insulin. Pioglitazone (Pioglitazone HCl) 15 Mg Tab 15 Mg PO DAILY Dilaudid (Hydromorphone HCl) 2 Mg Tab 2 Mg PO Q6H PRN Tradjenta (Linagliptin) 5 Mg Tab 5 Mg PO DAILY Novolog Inj (Insulin Aspart) 1,000 Unit/10 Ml Vial 2-12 Units SQ ACHS Max dose at bedtime ( ) units; sugars less than 70,(0) units; sugars 150-199,(2) units; sugars 200-249,(4) units; sugars 250-299,(7) units; sugars 300-349,(10) units; sugars greater than 349,(12)units Reported Glucosamine Chondroitin (Xglinlvtave-Wrcmddaehyv-Xcf C-) 1 Tab Tab 1 Tab PO BID Fish Oil (Farnam-3 Fatty Acids) 1,000 Mg Cap 1 Cap PO BID Gemfibrozil 600 Mg Tab 600 Mg PO BIDAC Take 30 minutes prior to breakfast and dinner. Symbicort Inh (Budesonide/Formoterol Fumarate) 160-4.5 Mcg/Act Aero 1 Puff INH Q12HR Lisinopril 10 Mg Tab 10 Mg PO DAILY Gabapentin 100 Mg Cap 100 Mg PO TID Proair Hfa 8.5 GM Inh (Albuterol Sulfate) 90 Mcg/Act Aer 1 Puff INH Q4H PRN 108 mcg/actuation Physical Exam Vital Signs Vital Signs Date Time Temp Pulse Resp B/P (MAP) Pulse Ox O2 Delivery O2 Flow Rate FiO2 01/29/17 05:14 18 01/29/17 05:14 18 98 Room Air 01/29/17 05:11 98.5 96 18 139/78 (98) 98 Physical Exam Lungs: Clear, no wheezes or crackles. Heart: NL S1S2, RRR. Neck veins flat. Abdomen: Mildly distended, tender to palpation right side. Peritoneal irritation is present. Extremities: Tepid but adequately perfused. Neuro: O X 3, alert, cooperative. M/S grossly intact. Laboratory Laboratory Tests Test 01/29/17 04:50 01/29/17 06:45 01/29/17 06:55 White Blood Count 14.2 Red Blood Count 4.80 Hemoglobin 13.9 Hematocrit 44.6 Mean Corpuscular Volume 93.0 Mean Corpuscular Hemoglobin 29.1 Mean Corpuscular Hemoglobin Concent 31.3 Red Cell Distribution Width 13.6 Platelet Count 146 Mean Platelet Volume 9.1 Neutrophils (%) (Auto) 82.5 Lymphocytes (%) (Auto) 8.1 Monocytes (%) (Auto) 9.0 Eosinophils (%) (Auto) 0.2 Basophils (%) (Auto) 0.2 Neutrophils # (Auto) 11.7 Lymphocytes # (Auto) 1.2 Monocytes # (Auto) 1.3 Eosinophils # (Auto) 0.0 Basophils # (Auto) 0.0 CBC Comment AUTO DIFF Differential Comment AUTO DIFF CONFIRMED Platelet Estimate LOW Platelet Morphology Comment NORMAL Red Cell Morphology Comment NORMAL Prothrombin Time 12.5 Prothromb Time International Ratio 1.1 Activated Partial Thromboplast Time 28.7 Urine Color YELLOW Urine Turbidity CLEAR Urine pH 5.5 Urine Specific [place] 1.026 Urine Protein NEG Urine Glucose (UA) 1000 OR GREATER Urine Ketones NEG Urine Occult Blood SMALL Urine Nitrite NEG Urine Bilirubin NEG Urine Leukocyte Esterase NEG Urine WBC 0-2 Urine Squamous Epithelial Cells 0-5 Urine Amorphous Sediment SMALL Microscopic Urinalysis Comment CULT NOT INDICATED Blood Urea Nitrogen 45 Creatinine 3.20 Random Glucose 1256 Total Protein 8.2 Albumin 3.2 Calcium Level 8.2 Alkaline Phosphatase 111 Aspartate Amino Transf (AST/SGOT) 35 Alanine Aminotransferase (ALT/SGPT) 58 Total Bilirubin 2.2 Sodium Level 113 Potassium Level 4.9 Chloride Level 73 Carbon Dioxide Level 23.3 Anion Gap 17 Estimat Glomerular Filtration Rate 20 Lactic Acid Level 4.2 Lipase 323 B-Hydroxybutyrate 0.74 Blood Gas Puncture Site PIV Blood Gas Patient Temperature 98.6 Venous Blood pH 7.34 Venous Blood Partial Pressure CO2 45 Venous Blood Partial Pressure O2 51 Venous Blood HCO3 23 Venous Blood Oxygen Saturation 77 Venous Blood Oxygen Content 14.7 Venous Blood Base Excess -1.6 Oxygen Delivery Device RA Blood Gas Inspired Oxygen 21 Date/Time Source Procedure Growth Status 01/29/17 06:50 Blood Peripheral Aerobic Blood Culture Pending Received 01/29/17 06:50 Blood Peripheral Anaerobic Blood Culture Pending Received Result Diagram: 01/29/170 01/29/17 0450 Yessenia VTE Risk Assessment Capvidal VTE Risk Assessment: Mod/High Risk (score >= 2) VTE Pharm Contraindication: Postop bleeding VTE [facility] Contraindication: Patient refusal Caprini Risk Assessment Model Point Value = 1 Point Value = 2 Point Value = 3 Point Value = 5 Age 41-60 Minor surgery BMI > 25 kg/m2 Swollen legs Varicose veins or History of unexplained or recurrent spontaneous Oral contraceptives or hormone replacement Sepsis (< 1 month) Serious lung disease, including pneumonia (< 1 month) Abnormal pulmonary function Acute myocardial infarction Congestive heart failure (< 1 month) History of inflammatory bowel disease Medical patient at bed rest Age 61-74 Arthroscopic surgery Major open surgery (> 45 min) Laparoscopic surgery (> 45 min) Malignancy Confined to bed (> 72 hours) Immobilizing plaster cast Central venous access Age >= 75 History of VTE Family history of VTE Factor V Leiden Prothrombin [id number] Lupus anticoagulant Anticardiolipin antibodies Elevated serum homocysteine Heparin-induced thrombocytopenia Other congenital or acquired thrombophilia Stroke (< 1 month) Elective arthroplasty Hip, pelvis, or leg fracture Acute spinal cord injury (< 1 month) Prophylaxis Regimen Total Risk Factor Score Risk Level Prophylaxis Regimen 0-1 Low Early ambulation 2 Moderate Order ONE of the following: *Sequential Compression Device (SCD) *Heparin 5000 units SQ BID 3-4 Higher Order ONE of the following medications: *Heparin 5000 units SQ TID *Enoxaparin/Lovenox 40 mg SQ daily (WT < 150 kg, CrCl > 30 mL/min) *Enoxaparin/Lovenox 30 mg SQ daily (WT < 150 kg, CrCl > 10-29 mL/min) *Enoxaparin/Lovenox 30 mg SQ BID (WT < 150 kg, CrCl > 30 mL/min) AND/OR *Sequential Compression Device (SCD) 5 or more Highest Order ONE of the following medications: *Heparin 5000 units SQ TID (Preferred with Epidurals) *Enoxaparin/Lovenox 40 mg SQ daily (WT < 150 kg, CrCl > 30 mL/min) *Enoxaparin/Lovenox 30 mg SQ daily (WT < 150 kg, CrCl > 10-29 mL/min) *Enoxaparin/Lovenox 30 mg SQ BID (WT < 150 kg, CrCl > 30 mL/min) AND *Sequential Compression Device (SCD) Assessment and Plan Assessment and Plan Assessment: 1. Abdominal pain, probable ischemic/necrotic bowel. 2. Hyperglycemia. 3. ELENA, severe 4. Hep B and C 5. Cirrhosis with portal hypertension. 6. DM, Type 2 Plan: 1. Aggressive hydration with isotonic fluid. 2. Broad abx coverage. 3. Insulin gtt. 4. Q1h glucose 5. Protonix. 6. SCDs. 7. [place]. 8. Surgical evaluation. Overall impression: Critically ill with ischemic bowel and severe hyperglycemia associated with severe dehydration and acute kidney injury. Disease process probably started with uncontrolled glucose. Peritoneal irritation right side, consistent with CT findings of ischemic gut. Update 1000 hours: Patient is making good urine and is not on vasopressors. No acid/base imbalance associated with hyperglycemia. Patient's abdominal pain is severe and he clearly has gut. He requires emergency surgery for bowel resection, hopefully before he perforates. Time is of the essence and he is well prepared now for what I know to be an above-normal risk for anesthesia. Delay of surgery will increase risk for perforation and its attendant complications. I strongly urge immediate surgery. Critical Care 40 mins aside from procedures Melchor Harris MD Jan 29, 2017 07:53
[2017-01-29] MEDS ORDERED: GLUCAGON 1 MG/ML VIAL OTHER PRN (08:45)
[2017-01-29] MEDS: DOCUSATE SODIUM 50 MG/SENNA 8.6 MG TAB PO SCH ×2 (09:00→20:31)
[2017-01-29] MEDS: MORPHINE SULFATE 4 MG/ML INJ IV PUSH PRN ×4 (09:21→21:54)
[2017-01-29] MEDS: PANTOPRAZOLE SODIUM 40 MG VIAL IV PUSH SCH (09:21)
[2017-01-29] MEDS ORDERED: PHENYLEPH/NS 1000 MCG/10 ML SYR IV ONE (09:22)
[2017-01-29] MEDS ORDERED: NORMOSOL R INJ 1,000 ML IV ONE (09:22)
[2017-01-29] MEDS ORDERED: PROPOFOL 200 MG/20 ML AMP IV ONE (09:22)
[2017-01-29] MEDS ORDERED: ROCURONIUM INJ 50 MG/5 ML SYRINGE IV PUSH ONE (09:22)
[2017-01-29] MEDS ORDERED: PHENYLEPHRINE HCL 10 MG/ML VIAL IV ONE (09:22)
[2017-01-29] MEDS ORDERED: SODIUM CHLORID 0.9% 500 ML INJ 500 ML IV ONE (09:22)
[2017-01-29] MEDS ORDERED: LIDOCAINE HCL 1% PF 5 ML AMPULE OTHER ONE (09:22)
[2017-01-29] MEDS ORDERED: ePHEDrine/NS 25 MG/5 ML SYR IV ONE (09:22)
[2017-01-29] MEDS ORDERED: ACETAMINOPHEN 1000 MG/100 ML 0 ML IV ONE (10:15)
[2017-01-29] MEDS ORDERED: HYDROmorphone HCL PF 2 MG/ML VIAL ONE (10:15)
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
[2017-01-29 11:21] LABS: BICARBONATE 26.3 MEQ/L (21.0-32.0); POTASSIUM 4.7 MEQ/L (3.5-5.1)
[2017-01-29 12:04] LABS: BLOOD GAS BASE EXCESS -7.2 mmol/L (-2-2); BLOOD GAS CARBOXYHEMOGLOBIN 2.9 % (0-4); BLOOD GAS HCO3 19 mmol/L (22-26); BLOOD GAS O2 HGB SATURATION 96 % (90-100); BLOOD GAS PCO2 47 mmHg (38-42); BLOOD GAS PO2 272 mmHg (61-120); BLOOD GAS TOTAL HGB 14.4 G/DL (12.0-16.0); TEMP CORR TO 98.6
[2017-01-29 12:05] LABS: DRAW SITE ALINE; FIO2 60 %; OXYGEN DEVICE O.R.GAS; STAT YES
[2017-01-29 12:08] LABS: CRITICAL VALUE YES
[2017-01-29] MEDS ORDERED: SUGAMMADEX SODIUM 200 MG/2 ML VIAL IV PUSH ONE ×2 (12:31)
[2017-01-29] MEDS ORDERED: DO NOT ADM ANY ANTICOAGULANT DRUGS PRN (12:55)
[2017-01-29] MEDS: SODIUM CHLOR 0.9% 1000 ML INJ 1,000 ML IV SCH ×3 (13:15→22:46)
[2017-01-29] MEDS: INSULIN REGULAR (IV INFUSION) 100 UNITS in SODIUM CHLORIDE 0.9% INJ 99 ML IV SCH ×3 (13:16→15:31)
[2017-01-29] MEDS ORDERED: LACTATED RINGER'S 1000 ML INJ 1,000 ML ONE (14:11)
[2017-01-29] MEDS ORDERED: LACTATED RINGER'S 1000 ML INJ 1,000 ML IV ONE ×2 (14:15→16:30)
--- NOTE | 2017-01-29 14:19 | HHI.PR ---
cc: Theodore Jordan MD Immediate Post Op Note Procedure Date: Jan 29, 2017 Pre Op Diagnosis: (1) Acute intestinal ischemic syndrome (2) History of major abdominal surgery (3) Ischemic necrosis of small bowel (4) Intra-abdominal adhesions (5) Diabetes (6) Thrombocytopenia (7) Cirrhosis of liver (8) Hyponatremia (9) Hyperosmolar non-ketotic state in patient with type 2 diabetes mellitus (10) Abdominal pain Post Op Diagnosis: (1) Uncontrolled diabetes mellitus (2) COPD (chronic obstructive pulmonary disease) (3) Hepatitis C (4) History of DVT (deep vein thrombosis) (5) Cirrhosis of liver (6) Abdominal pain (7) Acute intestinal ischemic syndrome (8) Diabetes (9) Hyponatremia (10) Cirrhosis of liver (11) Ischemic necrosis of small bowel (12) Intra-abdominal adhesions Surgeon: Theodore Jordan [employer](s): Refer to the record Procedure: Exploratory laparotomy Lysis of adhesions omentectomy Resection of right colon Resection of distal small bowel Placement of temporary abdominal wound closure device Findings: Adhesions Cirrhosis of the liver Ischemic cecum and ascending colon Ischemic distal small bowel Complications: None Specimen(s) removed: Omentum Right colon Distal small bowel ileum Estimated blood loss: 50 cc Anesthesia: General Drains: None, Other (temporary abdominal wound closure device) IVF Patient to: PACU Patient Condition: Critical Implant/Devices: SEE IMPLANT LOG (if applicable) Date/Time of Procedure: SEE SURGICAL CARE RECORD Theodore Jordan MD Jan 29, 2017 14:19
--- NOTE | 2017-01-29 14:28 | RADRPT ---
EXAM DATE/TIME: 01/29/2017 13:21 [place] COMPARISON: CHEST SINGLE AP, January 29, 2017, 5:52. INDICATIONS : Central line placement. MEDICAL HISTORY : None. SURGICAL HISTORY : None. ENCOUNTER: Subsequent ACUITY: 1 day PAIN SCORE: Non-responsive. LOCATION: Bilateral chest FINDINGS: A right internal jugular central line has its tip in the superior vena cava. There is no pneumothora x. The heart is normal. The pulmonary vascular pattern is also normal. The lungs are clear. CONCLUSION: 1. Right internal jugular central line has its tip in the superior vena cava. No pneumothorax is not ed. 2. No acute cardiopulmonary disease. Michael Philip MD on January 29, 2017 at 14:05 Board Certified Radiologist. This report was verified electronically.
[2017-01-29] MEDS: PIPERACIL-TAZO 2.25 GM PREMIX 50 ML IV SCH ×2 (15:12→21:51)
[2017-01-29 21:10] LABS: BICARBONATE 28.2 MEQ/L (21.0-32.0)
--- NOTE | 2017-01-29 21:13 | EKG ---
Date Performed: 01/29/2017 Time Performed: 05:37:36 PTAGE: 66 years EKG: SINUS TACHYCARDIA LOW QRS VOLTAGE IN EXTREMITY LEADS POSSIBLE INFERIOR MYOCARDIAL INFARCTIO N ABNORMAL RHYTHM ECG PREVIOUS TRACING : 03/25/2016 18.27 Compared to prior tracing no significant change DOCTOR: Rosi Connelly Interpretating Date/Time 01/29/2017 21:12:32
[2017-01-29] MEDS: ONDANSETRON HCL 4 MG/2 ML VIAL IV PUSH PRN (21:55)
[2017-01-30] VITALS (14 sets, daily range): BP systolic 124–168; BP diastolic 56–78; PULSE 90–106; RESP 20–24; TEMP 97.4–99.1; O2SAT 99–100
[2017-01-30] MEDS: CHLORHEXIDINE GLUCONATE 2 % 1 PACK (2 CLOTHS) TOP SCH (04:00)
[2017-01-30 05:38] LABS: AUTOMATED NEUTROPHIL # 8.8 TH/MM3 (1.8-7.7); BASOPHIL % 0.1 % (0.0-2.0); EOSINOPHIL # 0.1 TH/MM3 (0-0.4); EOSINOPHIL % 0.4 % (0.0-4.0); HEMATOCRIT 37.1 % (39.0-51.0); LYMPH % 20.3 % (9.0-44.0); LYMPHOCYTE # 2.5 TH/MM3 (1.0-4.8); MEAN CELL VOLUME 87.7 FL (80.0-100.0); MEAN CORPUSCULAR HEMOGLOBIN 29.5 PG (27.0-34.0); MEAN CORPUSCULAR HGB CONC 33.7 % (32.0-36.0); MONO % 7.5 % (0.0-8.0); NEUT % 71.7 % (16.0-70.0); PLATELET COUNT 94 TH/MM3 (150-450); RED BLOOD COUNT 4.23 MIL/MM3 (4.50-5.90); RED CELL DISTRIBUTION WIDTH 13.2 % (11.6-17.2); WHITE BLOOD COUNT 12.3 TH/MM3 (4.0-11.0)
[2017-01-30 05:43] LABS: HEMO FLAGS AUTO DIFF
[2017-01-30 06:02] LABS: BICARBONATE 24.5 MEQ/L (21.0-32.0); MAGNESIUM 2.1 MG/DL (1.5-2.5); POTASSIUM 3.3 MEQ/L (3.5-5.1)
[2017-01-30] MEDS: MORPHINE SULFATE 4 MG/ML INJ IV PUSH PRN ×3 (06:58→12:20)
[2017-01-30] MEDS: PIPERACIL-TAZO 2.25 GM PREMIX 50 ML IV SCH (06:58)
[2017-01-30] MEDS: ONDANSETRON HCL 4 MG/2 ML VIAL IV PUSH PRN (06:58)
[2017-01-30 08:04] LABS: BANDS 15 % (0-6); PLATELET ESTIMATE SMEAR LOW (NORMAL); PLATELET MORPHOLOGY NORMAL (NORMAL); POLYS (SEG NEUTROPHILS) 66 % (16-70); SCAN/DIFF FINAL DIFF MANUAL; WBC DIFF SAMPLE 100
--- NOTE | 2017-01-30 08:37 | HHI.CCPN ---
Subjective Remarks/Hospital Course 66 y/o homeless man presents to [place] with abdominal pain. Hx of cirrhosis with varices and bleeds. Pancreatitis and ERCP in past. Presents with glucose 1200 and normal bicarb. beta-hydroxybutyrate < 1.0. CT abdomen with portal vein air and suspicious cecum wall, likely early necrosis. On arrival to [facility] he has peritoneal irritation right side abdomen. 01/30: [place] sepsis with gangrenous gut yesterday. Source control performed in OR and now glucose management is possible. Objective Vital Signs Date Time Temp Pulse Resp B/P (MAP) Pulse Ox O2 Delivery O2 Flow Rate FiO2 01/30/17 06:00 105 01/30/17 04:00 97.4 20 124/56 (78) 100 01/29/17 20:01 Nasal Cannula 2.00 Intake and Output 01/30/17 01/30/17 01/31/17 08:00 16:00 00:00 Intake Total 1220 ml Output Total 1225 ml Balance -5 ml Result Diagram: 01/30/17 0500 01/30/17 0500 Other Results Laboratory Tests Test 01/29/17 11:50 Blood Gas Puncture Site VINH Blood Gas Patient Temperature 98.6 Blood Gas HCO3 19 mmol/L (22-26) Blood Gas Base Excess -7.2 mmol/L (-2-2) Blood Gas Oxygen Saturation 96 % (90-100) Arterial Blood pH 7.23 (7.380-7.420) Arterial Blood Partial Pressure CO2 47 mmHg (38-42) Arterial Blood Partial Pressure O2 272 mmHg (61-120) Arterial Blood Oxygen Content 20.0 Vol % (12.0-20.0) Arterial Blood Carboxyhemoglobin 2.9 % (0-4) Arterial Blood Methemoglobin 1.0 % (0-2) Blood Gas Hemoglobin 14.4 G/DL (12.0-16.0) Oxygen Delivery Device O.R.GAS Blood Gas Inspired Oxygen 60 % Objective Remarks Head: Normal. Lungs: Clear, no wheezes or crackles. Heart: NL S1S2, RRR. Neck veins flat. Abdomen: Midline VAC in place. Nondistended, quiet. Extremities: Warm, well perfused. Neuro: O X 3, alert, cooperative. M/S grossly intact. A/P Assessment and Plan Assessment: 1. Abdominal pain, probable ischemic/necrotic bowel. 2. Hyperglycemia. 3. ELENA, severe 4. Hep B and C 5. Cirrhosis with portal hypertension. 6. DM, Type 2 Plan: 1. Aggressive hydration with isotonic fluid. 2. Broad abx coverage. 3. Insulin gtt -> levemir, SSI 4. Q1h glucose -> q4h 5. Protonix. 6. SCDs. 7. [place]. 8. Lap Friday for relook. 9. Convert to LA insulin and SSI Overall impression: Critically ill with ischemic bowel and severe hyperglycemia associated with severe dehydration and acute kidney injury. gut resected and glucose control improved. Remains critically ill, for second look operation Friday. Critical Care 38 mins aside from procedures Melchor Harris MD Jan 30, 2017 08:37
[2017-01-30] MEDS: PANTOPRAZOLE SODIUM 40 MG VIAL IV PUSH SCH (08:43)
[2017-01-30] MEDS ORDERED: GLUCAGON 1 MG/ML VIAL OTHER PRN (08:45)
[2017-01-30] MEDS ORDERED: DEXTROSE 50% IN WATER 50 ML VIAL(D50) IV PRN (08:45)
[2017-01-30] MEDS: ICU - POTASSIUM PHOSPHATE 30 MMOL/NS 250 ML IV PRN ×4 (09:00→23:00)
[2017-01-30] MEDS: DOCUSATE SODIUM 50 MG/SENNA 8.6 MG TAB PO SCH ×2 (09:00→21:00)
[2017-01-30] MEDS: INSULIN ASPART SUPPLEMENTAL SCALE SQ SCH ×4 (09:00→22:00)
[2017-01-30] MEDS ORDERED: ICU - MAGNESIUM OXIDE 400 MG TAB PO PRN (09:30)
[2017-01-30] MEDS ORDERED: ICU - D/C ICU ELECTROLYTE ORDERS PRN (09:30)
[2017-01-30] MEDS ORDERED: ICU - POTASSIUM PHOSPHATE MONOBASIC 500 MG TAB PO PRN (09:30)
[2017-01-30] MEDS ORDERED: ICU - MAGNESIUM SULFATE 2 GM/NS 100 ML IV PRN ×2 (09:30)
[2017-01-30] MEDS ORDERED: ICU - SODIUM PHOSPHATE 30 MMOL/NS 250 ML IV PRN ×2 (09:30)
[2017-01-30] MEDS ORDERED: ICU - MAGNESIUM SULFATE 4 GM/NS 100 ML IV PRN ×2 (09:30)
[2017-01-30] MEDS ORDERED: ICU - CALL ORDERING PHYSICIAN PRN (09:30)
[2017-01-30] MEDS ORDERED: ICU - POTASSIUM CHLORIDE/AQUEOUS SOLN 40 MEQ/100 ML IVPB IV PRN (09:30)
[2017-01-30] MEDS: INSULIN DETEMIR 100 UNITS/ML VIAL SQ SCH ×2 (11:10→21:08)
--- NOTE | 2017-01-30 12:19 | HHI.PR ---
cc: Theodore Jordan MD Subjective Subjective Notes DAILY PROGRESS NOTE FOR SURGICAL ATTENDING, DR. THEODORE JORDAN Resting in bed Pain high but somewhat controlled MARIUSZ Carrillo at bedside Objective Vitals/I&O Vital Signs Date Time Temp Pulse Resp B/P (MAP) Pulse Ox O2 Delivery O2 Flow Rate FiO2 01/30/17 10:00 104 01/30/17 08:00 97.9 20 140/63 (88) 100 01/30/17 07:00 Nasal Cannula 2.00 Labs Laboratory Tests Test 01/29/17 20:14 01/30/17 05:00 Blood Urea Nitrogen 25 24 Creatinine 1.34 1.25 Random Glucose 59 133 Calcium Level 7.6 7.6 Sodium Level 140 142 Potassium Level 3.0 3.3 Chloride Level 104 107 Carbon Dioxide Level 28.2 24.5 Anion Gap 8 11 Estimat Glomerular Filtration Rate 53 58 White Blood Count 12.3 Red Blood Count 4.23 Hemoglobin 12.5 Hematocrit 37.1 Mean Corpuscular Volume 87.7 Mean Corpuscular Hemoglobin 29.5 Mean Corpuscular Hemoglobin Concent 33.7 Red Cell Distribution Width 13.2 Platelet Count 94 Mean Platelet Volume 9.0 Neutrophils (%) (Auto) 71.7 Lymphocytes (%) (Auto) 20.3 Monocytes (%) (Auto) 7.5 Eosinophils (%) (Auto) 0.4 Basophils (%) (Auto) 0.1 Neutrophils # (Auto) 8.8 Lymphocytes # (Auto) 2.5 Monocytes # (Auto) 0.9 Eosinophils # (Auto) 0.1 Basophils # (Auto) 0.0 CBC Comment AUTO DIFF Differential Total Cells Counted 100 Neutrophils % (Manual) 66 Band Neutrophils % 15 Lymphocytes % 15 Monocytes % 4 Neutrophils # (Manual) 10.0 Differential Comment FINAL DIFF MANUAL Platelet Estimate LOW Platelet Morphology Comment NORMAL Red Cell Morphology Comment NORMAL Phosphorus Level 1.5 Magnesium Level 2.1 Lactic Acid Level 1.4 Date/Time Source Procedure Growth Status 01/29/17 06:50 Blood Peripheral Aerobic Blood Culture - Preliminary NO GROWTH IN 1 DAY Resulted 01/29/17 06:50 Blood Peripheral Anaerobic Blood Culture - Preliminary NO GROWTH IN 1 DAY Resulted Radiology Last 48 hours Impressions Chest X-Ray 01/29/17 0000 Signed Impressions: Service Date/Time: Sunday, January 29, 2017 05:52 - CONCLUSION: 1. No acute findings. Theodore Mckay MD Abdomen/Pelvis CT 01/29/17 0000 Signed Impressions: Service Date/Time: Sunday, January 29, 2017 06:37 - CONCLUSION: 1. Suspected ischemic bowel process involving the terminal ileum and cecum which is associated with portal gas in the liver. 2. No evidence of organized abscess. 3. Mild hydronephrosis and distended urinary bladder. Kelby Laurent MD Abdomen X-Ray 01/29/17 0000 Signed Impressions: Service Date/Time: Sunday, January 29, 2017 05:57 - CONCLUSION: 1. Mild ileus. No free air. Advanced degenerative changes in the lumbar spine. Theodore Mckay MD Cardiovascular: Regular Lungs: Clear Abdomen: Other (Wound Vac in place to open incision---good seal ) Extremities: No edema A/P Problem List: (1) Abdominal pain ICD Codes: R10.9 - Unspecified abdominal pain Status: Acute (2) Ischemic necrosis of large intestine ICD Codes: K55.049 - Acute infarction of large intestine, extent unspecified Status: Acute (3) Ischemia, bowel ICD Codes: K55.9 - Vascular disorder of intestine, unspecified Status: Acute (4) Chronic obstructive pulmonary disease ICD Codes: J44.9 - Chronic obstructive pulmonary disease Status: Chronic (5) Chronic hepatitis C virus infection ICD Codes: B18.2 - Chronic viral hepatitis C Status: Chronic (6) Diabetic neuropathy ICD Codes: E11.40 - Diabetic neuropathy Status: Chronic (7) Hyponatremia ICD Codes: E87.1 - Hypo-osmolality and hyponatremia Status: Acute (8) Cirrhosis of liver ICD Codes: K74.60 - Hepatic cirrhosis Status: Chronic (9) COPD (chronic obstructive pulmonary disease) ICD Codes: J44.9 - Chronic obstructive pulmonary disease, unspecified Status: Acute (10) History of DVT (deep vein thrombosis) ICD Codes: Z86.718 - History of deep venous thrombosis Status: Chronic (11) History of major abdominal surgery ICD Codes: Z98.890 - Other specified postprocedural states Status: Chronic (12) Bladder cancer ICD Codes: C67.9 - Malignant neoplasm of bladder, unspecified Status: Chronic Assessment and Plan 66 year old male with ischemic bowel -POD1 Exploratory laparotomy; Lysis of adhesions; omentectomy; Resection of right colon; Resection of distal small bowel; Placement of temporary abdominal wound closure device -Pain control -NPO -IVF -Glucose improved--now in 140s---off insulin drip -OR tomorrow at [address] Jordan -Obtain consents Attending Statement NOTE FOR SURGICAL ATTENDING, DR. THEODORE JORDAN I agree with above assessment and plan. The exam, history, and the medical decision-making described in the above note were completed with the assistance of the mid-level provider. I reviewed and agree with the findings presented. I attest that I had a [id number] encounter with the patient on the same day, and personally performed and documented my assessment and findings in the medical record. The following services were provided during this hospital visit: Chart data review, vital sign assessments/reviewing monitor data Review of consultations notes if present. Medication orders/review and/or management Ordering and/or reviewing lab tests Ordering and/or interpreting/reviewing x-rays and/or diagnostic studies Care of the patient and discussion of the patient with the care team Documentation time To help prompt me to consider important information that might be impacting today's encounter and assessment, information from prior notes written by myself or my colleagues may have been "brought forward/copy and pasted" into today's note. Problem Qualifiers (1) Abdominal pain: Qualified Codes: R10.84 - Generalized abdominal pain Mary Deluna Jan 30, 2017 12:19 Theodore Jordan MD Jan 30, 2017 17:19
--- NOTE | 2017-01-30 13:05 | MP ---
cc: BRET JORDAN DATE OF SURGERY 01/29/2017 PREOPERATIVE DIAGNOSIS 1. Acute abdomen with abnormal CT scan suggestive of ischemic cecum and bowel 2. Elevated sugars and low-sodium. POSTOPERATIVE DIAGNOSIS 1. Ischemic cecum with partial ischemia of distal terminal ileum. 2. Elevation sugar 3. Low sodium 4. Cirrhosis of the liver 5. History of hepatitis A and B. PROCEDURE 1. Exploratory laparotomy, lysis of adhesions. 2. Right colon resection 3. small bowel resection about the 20 cm distal ileum. 4. Application of temporary abdominal wound closure device. ANESTHESIA General SURGEON Dr. Jordan INDICATIONS This is a 66-year-old gentleman who has acute abdominal findings on exam. CT shows what appears to be ischemic right colon. He does have elevated sugars and a critically low sodium. Dr. Morton and I had a full discussion about the need of operative intervention at this time because his overall clinical condition we will most likely deteriorate if any surgery is delayed. PROCEDURE The patient is taken to the operating room, placed in the supine position. After anesthesia, his abdomen was prepped with Betadine. A time out was down. We make an incision from the pubic bone up to the midline through previous incision. On entry to the abdomen, adhesions were taken down and lysed along the four quadrants of the abdomen. He has fairly extensive adhesions from previous intra-abdominal surgery, splenorrhaphy, appendectomy and a cholecystectomy. Of note, he does have cirrhosis of the liver. There is minimal fluid in the abdomen. The cecum is obviously black and necrotic. There is no spillage. The ascending colon is somewhat ischemic appearing as well. The white line of Toldt was taken down and the hepatic flexure was taken down all the way to the transverse colon. We were able to resect this right at the hepatic flexure. The mesentery was taken down with the harmonic scalpel. There is noted to be minimal bleeding. The distal ileum is then transected with the GI stapling device and this specimen is passed off the field. We then are able to release some more adhesions down in the pelvis to bring up the distal terminal ileum and this has somewhat splotchy ischemia as well, however no definite prominent vascular supply. This is segment of bowel about 20 cm was resected with the harmonic scalpel. After this was done, we passed this off the field and irrigated copiously. The rest of the small bowel appears viable. The sigmoid appears viable. The transverse colon appears viable. It is noted that there is fairly extensive cirrhosis of the liver. Some other adhesions were taken down in the left upper quadrant and the left side of the abdomen. Because of the critical illness of the patient and the fact that he has this kind of ischemia in the distal ileum and ascending colon, I simply reapproximate the small bowel to the resected large bowel and plan to do a second look operation in the next 48 hours. A temporary closure device is applied by placing the sponge device in the gutters of the abdomen. The sponge was then placed over the primary sponge and placed up to the Vac device. An abdominal binder is placed. He remained in critical condition with a planned second look operation in 48 hours. This was discussed with Dr. Morton as well. Note, the patient is acidotic and still has elevated sugars. MD FERNANDEZ Dietz/WILMER /2:07 PM /12:52 PM ASIA
[2017-01-30] MEDS ORDERED: fentaNYL DRIP 250 ML IV PRN (13:15)
[2017-01-30] MEDS: PIPERACIL-TAZO 4.5 GM PREMIX 100 ML IV SCH ×2 (13:57→17:49)
[2017-01-30] MEDS: MORPHINE SULFATE 8 MG/ML INJ IV PUSH PRN ×4 (16:39→23:30)
[2017-01-30] MEDS ORDERED: hydrALAZINE HCL 20 MG/ML VIAL IV PUSH PRN (17:30)
[2017-01-30] MEDS: LABETALOL HCL 100 MG/20 ML VIAL IV PUSH PRN ×3 (17:55→23:45)
[2017-01-30] MEDS: SODIUM CHLOR 0.9% 1000 ML INJ 1,000 ML IV SCH (18:58)
[2017-01-30 21:45] LABS: POTASSIUM 3.3 MEQ/L (3.5-5.1)
[2017-01-31] VITALS (11 sets, daily range): BP systolic 136–164; BP diastolic 67–86; PULSE 74–102; RESP 14–28; TEMP 97.9–98.5; O2SAT 97–100
[2017-01-31] MEDS: PIPERACIL-TAZO 4.5 GM PREMIX 100 ML IV SCH ×4 (01:00→17:10)
[2017-01-31] MEDS: MORPHINE SULFATE 8 MG/ML INJ IV PUSH PRN ×8 (01:45→21:54)
[2017-01-31] MEDS: INSULIN ASPART SUPPLEMENTAL SCALE SQ SCH ×6 (02:00→22:00)
[2017-01-31] MEDS: CHLORHEXIDINE GLUCONATE 2 % 1 PACK (2 CLOTHS) TOP SCH (03:48)
[2017-01-31] MEDS: LABETALOL HCL 100 MG/20 ML VIAL IV PUSH PRN (04:06)
[2017-01-31] MEDS: SODIUM CHLOR 0.9% 1000 ML INJ 1,000 ML IV SCH ×3 (04:56→23:02)
[2017-01-31 05:03] LABS: AUTOMATED NEUTROPHIL # 6.3 TH/MM3 (1.8-7.7); BASOPHIL % 0.3 % (0.0-2.0); EOSINOPHIL # 0.1 TH/MM3 (0-0.4); EOSINOPHIL % 0.8 % (0.0-4.0); HEMATOCRIT 37.7 % (39.0-51.0); HEMO FLAGS DIFF FINAL; LYMPH % 23.8 % (9.0-44.0); LYMPHOCYTE # 2.2 TH/MM3 (1.0-4.8); MEAN CORPUSCULAR HEMOGLOBIN 29.7 PG (27.0-34.0); MEAN CORPUSCULAR HGB CONC 33.4 % (32.0-36.0); MONO % 8.3 % (0.0-8.0); NEUT % 66.8 % (16.0-70.0); PLATELET COUNT 100 TH/MM3 (150-450); RED BLOOD COUNT 4.24 MIL/MM3 (4.50-5.90); RED CELL DISTRIBUTION WIDTH 13.5 % (11.6-17.2); WHITE BLOOD COUNT 9.4 TH/MM3 (4.0-11.0)
[2017-01-31 05:41] LABS: BICARBONATE 26.3 MEQ/L (21.0-32.0); POTASSIUM 3.6 MEQ/L (3.5-5.1)
[2017-01-31 05:59] LABS: CALCIUM-PROTEIN CORRECTED 8.1 MG/DL (8.5-10.1)
[2017-01-31] MEDS: PANTOPRAZOLE SODIUM 40 MG VIAL IV PUSH SCH (08:39)
[2017-01-31] MEDS: DOCUSATE SODIUM 50 MG/SENNA 8.6 MG TAB PO SCH ×2 (08:39→21:00)
[2017-01-31] MEDS: INSULIN DETEMIR 100 UNITS/ML VIAL SQ SCH ×2 (09:00→21:00)
[2017-01-31] MEDS ORDERED: PHENYLEPH/NS 1000 MCG/10 ML SYR IV ONE (09:41)
[2017-01-31] MEDS ORDERED: ROCURONIUM INJ 50 MG/5 ML SYRINGE IV PUSH ONE (09:41)
[2017-01-31] MEDS ORDERED: PROPOFOL 200 MG/20 ML AMP IV ONE (09:41)
[2017-01-31] MEDS ORDERED: ONDANSETRON HCL 4 MG/2 ML VIAL IV PUSH ONE (09:41)
[2017-01-31] MEDS ORDERED: DEXAMETHASONE SOD PHOS 4 MG/ML VIAL IV ONE (09:41)
[2017-01-31] MEDS ORDERED: LIDOCAINE HCL 1% PF 5 ML AMPULE OTHER ONE (09:41)
[2017-01-31] MEDS ORDERED: THROMBIN (TOPICAL) 5,000 UNIT VIAL ONE (14:01)
[2017-01-31] MEDS ORDERED: BUPIVACAINE/EPINEPHRINE 0.25% 50 ML VIAL ONE ×2 (14:01→16:03)
[2017-01-31] MEDS ORDERED: ceFAZolin INJ 1,000 MG VIAL ONE ×2 (14:01→16:03)
[2017-01-31] MEDS ORDERED: GELFOAM SIZE 100 ONE (14:01)
--- NOTE | 2017-01-31 14:01 | HHI.CCPN ---
Subjective Remarks/Hospital Course 66 y/o homeless man presents to [place] with abdominal pain. Hx of cirrhosis with varices and bleeds. Pancreatitis and ERCP in past. Presents with glucose 1200 and normal bicarb. beta-hydroxybutyrate < 1.0. CT abdomen with portal vein air and suspicious cecum wall, likely early necrosis. On arrival to [facility] he has peritoneal irritation right side abdomen. 01/30: Florid sepsis with gangrenous gut yesterday. Source control performed in OR and now glucose management is possible. 01/31: Wall of small bowel alledgedly contains clostridium perfringens by phone call pathology report. Plan to hook back together today. Afebrile, normal WBC, normotensive, looks well. Objective Vital Signs Date Time Temp Pulse Resp B/P (MAP) Pulse Ox O2 Delivery O2 Flow Rate FiO2 01/31/17 12:00 83 01/31/17 12:00 97.9 14 154/82 (106) 97 01/31/17 08:55 Nasal Cannula 2.00 Intake and Output 01/31/17 01/31/17 02/01/17 08:00 16:00 00:00 Intake Total 1342 ml Output Total 2075 ml Balance -733 ml Result Diagram: 01/31/17 0440 01/31/17 0440 Objective Remarks Head: Normal. Lungs: Clear, no wheezes or crackles. Heart: NL S1S2, RRR. No JVD. Abdomen: Midline VAC in place. Nondistended, quiet. Extremities: Warm, well perfused. Neuro: O X 3, alert, cooperative. M/S grossly intact. A/P Assessment and Plan Assessment: 1. Abdominal pain, probable ischemic/necrotic bowel. 2. Hyperglycemia. 3. ELENA, severe 4. Hep B and C 5. Cirrhosis with portal hypertension. 6. DM, Type 2 Plan: 1. Aggressive hydration with isotonic fluid. 2. Broad abx coverage. 3. Insulin gtt -> levemir, SSI 4. Q1h glucose -> q4h 5. Protonix. 6. SCDs. 7. Morelos. 8. Lap Friday for relook. 9. Convert to LA insulin and SSI Overall impression: gut resected and glucose control improved. ID service to weigh in on pathology report. Melchor Harris MD Jan 31, 2017 14:01
[2017-01-31] MEDS ORDERED: HYDROmorphone HCL PF 2 MG/ML VIAL ONE (16:00)
[2017-01-31] MEDS ORDERED: SUGAMMADEX SODIUM 200 MG/2 ML VIAL IV PUSH ONE ×2 (16:00)
[2017-01-31] MEDS ORDERED: FAMOTIDINE 20 MG/2 ML VIAL ONE (16:00)
[2017-01-31] MEDS ORDERED: DO NOT ADM ANY ANTICOAGULANT DRUGS PRN (17:56)
--- NOTE | 2017-01-31 18:19 | HHI.PR ---
cc: Theodore Jordan MD Immediate Post Op Note Procedure Date: Jan 31, 2017 Pre Op Diagnosis: (1) Abdominal pain (2) Thrombocytopenia (3) Intra-abdominal adhesions (4) Cirrhosis of liver Post Op Diagnosis: (1) Insulin dependent diabetes mellitus (2) Ischemic necrosis of small bowel (3) Intra-abdominal adhesions (4) Cirrhosis of liver (5) Ischemia, bowel Surgeon: Theodore Jordan Educational Administration Teacher(s): Refer to the record Procedure: Removal of temporary abdominal wound closure device Resection of distal ileum 8-10 cm Abdominal washout Reposition NG tube Anastomosis from small bowel to transverse colon [id number] functional and end -to-end anastomosis Findings: Dilated small bowel no signs of ischemia on the majority of the bowel 8-7 cm of the distal ileum was resected secondary to pathology report Complications: None Specimen(s) removed: Distal ileum Estimated blood loss: 100 Anesthesia: General Drains: None IVF Patient to: PACU Patient Condition: Critical Implant/Devices: SEE IMPLANT LOG (if applicable) Date/Time of Procedure: SEE SURGICAL CARE RECORD Theodore Jordan MD Jan 31, 2017 18:19
[2017-01-31] MEDS ORDERED: *morphine SULFATE 8 MG/ML PERIprocedure ONLY ONE ×2 (18:38→19:09)
[2017-02-01] VITALS (12 sets, daily range): BP systolic 112–154; BP diastolic 72–97; PULSE 102–110; RESP 15–26; TEMP 97.6–98.7; O2SAT 97–100
[2017-02-01] MEDS: PIPERACIL-TAZO 4.5 GM PREMIX 100 ML IV SCH ×4 (00:05→20:18)
[2017-02-01] MEDS: INSULIN ASPART SUPPLEMENTAL SCALE SQ SCH ×6 (02:00→22:58)
[2017-02-01] MEDS: CHLORHEXIDINE GLUCONATE 2 % 1 PACK (2 CLOTHS) TOP SCH (02:07)
[2017-02-01] MEDS: MORPHINE SULFATE 8 MG/ML INJ IV PUSH PRN ×9 (02:56→23:26)
[2017-02-01] MEDS: DOCUSATE SODIUM 50 MG/SENNA 8.6 MG TAB PO SCH ×2 (08:30→20:37)
[2017-02-01] MEDS: PANTOPRAZOLE SODIUM 40 MG VIAL IV PUSH SCH (08:30)
[2017-02-01] MEDS: INSULIN DETEMIR 100 UNITS/ML VIAL SQ SCH ×2 (09:45→20:37)
--- NOTE | 2017-02-01 09:55 | RADRPT ---
EXAM DATE/TIME: 02/01/2017 09:27 [facility] COMPARISON: CHEST SINGLE AP, January 29, 2017, 13:21. INDICATIONS : Confirm NG tube placement. MEDICAL HISTORY : Hepatitis C. Hypertension Carcinoma, bladder. SURGICAL HISTORY : Appendectomy. Cholecystectomy. spleen repair, renal stent ENCOUNTER: Subsequent ACUITY: 1 day PAIN SCORE: 8/10 LOCATION: Abdomen. FINDINGS: Examination of the abdomen demonstrates a normal bowel gas pattern. The NG tube is looped within the stomach. The patient is status post cholecystectomy. No free air is identified. No organomegaly is evident. Old left rib fractures are seen. CONCLUSION: NG tube in the stomach. Vishal Brewer MD on February 01, 2017 at 9:53 Board Certified Radiologist. This report was verified electronically.
--- NOTE | 2017-02-01 10:02 | HHI.PR ---
Subjective Subjective Notes feels fine, wants some ice. Objective Vitals/I&O Vital Signs Date Time Temp Pulse Resp B/P (MAP) Pulse Ox O2 Delivery O2 Flow Rate FiO2 02/01/17 07:00 100 Room Air 02/01/17 06:00 108 02/01/17 04:00 98.7 15 130/85 (100) 01/31/17 18:00 2 Labs Date/Time Source Procedure Growth Status 01/29/17 06:50 Blood Peripheral Aerobic Blood Culture - Preliminary NO GROWTH IN 2 DAYS Resulted 01/29/17 06:50 Blood Peripheral Anaerobic Blood Culture - Preliminary NO GROWTH IN 2 DAYS Resulted Radiology Last 48 hours Impressions Chest X-Ray 01/29/17 0000 Signed Impressions: Service Date/Time: Sunday, January 29, 2017 05:52 - CONCLUSION: 1. No acute findings. Theodore Mckay MD Abdomen/Pelvis CT 01/29/17 0000 Signed Impressions: Service Date/Time: Sunday, January 29, 2017 06:37 - CONCLUSION: 1. Suspected ischemic bowel process involving the terminal ileum and cecum which is associated with portal gas in the liver. 2. No evidence of organized abscess. 3. Mild hydronephrosis and distended urinary bladder. Kelby Laurent MD Abdomen X-Ray 01/29/17 0000 Signed Impressions: Service Date/Time: Sunday, January 29, 2017 05:57 - CONCLUSION: 1. Mild ileus. No free air. Advanced degenerative changes in the lumbar spine. Theodore Mckay MD Cardiovascular: Regular Lungs: Clear Abdomen: Non-distended Wound Wound : Wound Location: Abdomen Dressing: Dry A/P Problem List: (1) Abdominal pain ICD Codes: R10.9 - Unspecified abdominal pain Status: Acute (2) Ischemic necrosis of large intestine ICD Codes: K55.049 - Acute infarction of large intestine, extent unspecified Status: Acute (3) Ischemia, bowel ICD Codes: K55.9 - Vascular disorder of intestine, unspecified Status: Acute (4) Chronic obstructive pulmonary disease ICD Codes: J44.9 - Chronic obstructive pulmonary disease Status: Chronic (5) Chronic hepatitis C virus infection ICD Codes: B18.2 - Chronic viral hepatitis C Status: Chronic (6) Diabetic neuropathy ICD Codes: E11.40 - Diabetic neuropathy Status: Chronic (7) Hyponatremia ICD Codes: E87.1 - Hypo-osmolality and hyponatremia Status: Acute (8) Cirrhosis of liver ICD Codes: K74.60 - Hepatic cirrhosis Status: Chronic (9) COPD (chronic obstructive pulmonary disease) ICD Codes: J44.9 - Chronic obstructive pulmonary disease, unspecified Status: Acute (10) History of DVT (deep vein thrombosis) ICD Codes: Z86.718 - History of deep venous thrombosis Status: Chronic (11) History of major abdominal surgery ICD Codes: Z98.890 - Other specified postprocedural states Status: Chronic (12) Bladder cancer ICD Codes: C67.9 - Malignant neoplasm of bladder, unspecified Status: Chronic Assessment and Plan POD1 exp lap, bowel resection with anastomosis doing well will check KUB for NGT placement (appears to be too far in). labs pending for this am. Problem Qualifiers (1) Abdominal pain: Qualified Codes: R10.84 - Generalized abdominal pain Geo Dias MD Feb 01, 2017 10:02
[2017-02-01] MEDS: SODIUM CHLOR 0.9% 1000 ML INJ 1,000 ML IV SCH ×2 (10:22→18:04)
[2017-02-01 10:52] LABS: AUTOMATED NEUTROPHIL # 10.7 TH/MM3 (1.8-7.7); BASOPHIL % 0.2 % (0.0-2.0); EOSINOPHIL # 0.1 TH/MM3 (0-0.4); EOSINOPHIL % 0.5 % (0.0-4.0); HEMATOCRIT 39.8 % (39.0-51.0); HEMO FLAGS DIFF FINAL; LYMPH % 15.7 % (9.0-44.0); LYMPHOCYTE # 2.2 TH/MM3 (1.0-4.8); MEAN CELL VOLUME 89.3 FL (80.0-100.0); MEAN CORPUSCULAR HEMOGLOBIN 29.7 PG (27.0-34.0); MEAN CORPUSCULAR HGB CONC 33.2 % (32.0-36.0); MONO % 8.2 % (0.0-8.0); NEUT % 75.4 % (16.0-70.0); PLATELET COUNT 144 TH/MM3 (150-450); RED BLOOD COUNT 4.46 MIL/MM3 (4.50-5.90); RED CELL DISTRIBUTION WIDTH 13.2 % (11.6-17.2); WHITE BLOOD COUNT 14.1 TH/MM3 (4.0-11.0)
[2017-02-01 11:08] LABS: BICARBONATE 24.1 MEQ/L (21.0-32.0); POTASSIUM 3.7 MEQ/L (3.5-5.1)
[2017-02-01 11:32] LABS: CALCIUM-PROTEIN CORRECTED 8.1 MG/DL (8.5-10.1)
--- NOTE | 2017-02-01 12:24 | RADRPT ---
EXAM DATE/TIME: 02/01/2017 11:14 [facility] COMPARISON: ABDOMEN FLAT & UPRIGHT, January 29, 2017, 5:57. CHEST SINGLE AP, January 29, 2017, 13:21. CT AB DOMEN & PELVIS W/O CONTRAST, January 29, 2017, 6:37. ABDOMEN SINGLE VIEW, February 01, 2017, 9:27 . INDICATIONS : NG tube placement MEDICAL HISTORY : Hepatitis C. Hypertension Carcinoma, bladder SURGICAL HISTORY : Appendectomy. Cholecystectomy. spleen repair, renal stent ENCOUNTER: Subsequent ACUITY: 4 - 6 days PAIN SCORE: 0/10 LOCATION: Abdomen FINDINGS: Supine view of the abdomen was performed. There is air lucency seen in the upper abdomen and right u pper quadrant. Pneumoperitoneum may be present. The abdominal bowel gas pattern is normal. There is an NG tube in place in the stomach. Clips are seen in the right upper quadrant presumably from prior cholecystectomy. No abnormal masses, calcifications, or organomegaly is seen. The osseous structures are unremarkable. CONCLUSION: 1. Air lucency in the upper abdomen concerning for possible free intraperitoneal air. 2. NG tube looped in the stomach. Attention been made to contact the surgical team. Vishal Brewer MD on February 01, 2017 at 12:18 Board Certified Radiologist. This report was verified electronically.
--- NOTE | 2017-02-01 12:54 | HHI.CCPN ---
Subjective Remarks/Hospital Course 66 y/o homeless man presents to [place] with abdominal pain. Hx of cirrhosis with varices and bleeds. Pancreatitis and ERCP in past. Presents with glucose 1200 and normal bicarb. beta-hydroxybutyrate < 1.0. CT abdomen with portal vein air and suspicious cecum wall, likely early necrosis. On arrival to [facility] he has peritoneal irritation right side abdomen. 01/30: Florid sepsis with gangrenous gut yesterday. Source control performed in OR and now glucose management is possible. 01/31: Wall of small bowel alledgedly contains clostridium perfringens by phone call pathology report. Plan to hook back together today. Afebrile, normal WBC, normotensive, looks well. 02/01: Looks good today following bowel reconnection. Well hydrated. Objective Vital Signs Date Time Temp Pulse Resp B/P (MAP) Pulse Ox O2 Delivery O2 Flow Rate FiO2 02/01/17 12:00 104 02/01/17 12:00 97.6 16 154/79 (104) 99 02/01/17 07:00 Room Air 01/31/17 18:00 2 Intake and Output 02/01/17 02/01/17 02/02/17 08:00 16:00 00:00 Intake Total 1701 ml 419 ml Output Total 680 ml Balance 1021 ml 419 ml Result Diagram: 02/01/1794402/01/17944 Objective Remarks Head: Normal. Lungs: Clear, no wheezes or crackles. Heart: NL S1S2, RRR. No JVD. Abdomen: Midline VAC in place. Nondistended, quiet. Extremities: Warm, well perfused. Neuro: O X 3, alert, cooperative. M/S grossly intact. A/P Assessment and Plan Assessment: 1. Abdominal pain, probable ischemic/necrotic bowel. 2. Hyperglycemia. 3. ELENA, severe 4. Hep B and C 5. Cirrhosis with portal hypertension. 6. DM, Type 2 Plan: 1. Aggressive hydration with isotonic fluid. 2. Broad abx coverage. 3. Insulin gtt -> levemir, SSI 4. Q1h glucose -> q4h 5. Protonix. 6. SCDs. 7. Morelos. 8. Lap Friday for relook. 9. Convert to LA insulin and SSI Overall impression: gut resected and glucose control improved. Reconnected 01/31. Good progress. Melchor Harris MD Feb 01, 2017 12:54
--- NOTE | 2017-02-01 16:09 | PD.ID.CON ---
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 and it raises concern for infection Pt underwent his yday surgery uneventfully and is doing ok He is extubated, off pressors ,afebrile Review of Systems Except as stated in HPI: all other systems reviewed are Neg Past Family Social History Allergies: Coded Allergies: Iodinated Contrast- Oral and IV Dye (Unverified Allergy, Severe, rash/ flush, 01/29/17) butorphanol (Unverified Allergy, Severe, rash, 01/29/17) codeine (Unverified Allergy, Severe, breathing probs, 01/29/17) pentazocine (Unverified Allergy, Severe, breathing probs, 01/29/17) Past Medical History Diabetes Mellitus Bladder Cancer Cirrhosis Chronic headaches DVT Past Surgical History Appendectomy Cholecystectomy Back surgery x2 Resection of bladder cancer Spleen repair Multiple orthopedic surgeries Active Ordered Medications Medications where reviewed in EMR Antibiotics Include: zosyn Family History reviewed Non-Contributory. Social History +Tobacco. No ETOH. No Illicit Drugs. Homeless Physical Exam Vital Signs Vital Signs Date Time Temp Pulse Resp B/P (MAP) Pulse Ox O2 Delivery O2 Flow Rate FiO2 02/01/17 14:00 104 02/01/17 12:00 104 02/01/17 12:00 97.6 105 16 154/79 (104) 99 02/01/17 10:00 104 02/01/17 08:00 97.9 106 15 154/97 (116) 100 02/01/17 08:00 103 02/01/17 07:00 100 Room Air 02/01/17 07:00 100 Room Air 02/01/17 06:00 108 02/01/17 04:00 110 02/01/17 04:00 98.7 110 15 130/85 (100) 100 02/01/17 02:00 107 02/01/17 00:00 108 02/01/17 00:00 98.7 108 15 128/83 (98) 100 01/31/17 22:00 102 01/31/17 20:00 98 01/31/17 20:00 87 16 144/88 (106) 100 Room Air 01/31/17 20:00 97.9 98 19 136/86 (103) 100 01/31/17 19:30 95 16 145/93 (110) 100 Room Air 01/31/17 19:00 92 16 153/95 (114) 100 Room Air 01/31/17 18:45 87 16 150/95 (113) 100 Room Air 01/31/17 18:30 89 16 156/99 (118) 100 Room Air 01/31/17 18:15 87 16 152/98 (116) 100 Room Air 01/31/17 18:00 85 16 148/90 (109) 99 Nasal Cannula 2 01/31/17 17:56 97.8 86 16 151/93 (112) 100 Nasal Cannula 4 Physical Exam CONSTITUTIONAL/GENERAL: This is an adequately nourished patient, in no apparent distress. TUBES/LINES/DRAINS: SKIN: No jaundice, rashes, or lesions. ly. Skin temperature appropriate. Not diaphoretic. HEAD: Atraumatic. Normocephalic. EYES: Pupils equal and round and reactive. Extraocular motions intact. No scleral icterus. No injection or drainage. Fundi not examined. ENT: Hearing grossly normal. Nose without bleeding or purulent drainage. Throat without visible erythema, exudates, masses, or lesions. NECK: Trachea midline. Supple, nontender. CARDIOVASCULAR: Regular rate and rhythm without murmurs, gallops, or rubs. No JVD. Peripheral pulses symmetric. RESPIRATORY/CHEST: Symmetric, unlabored respirations. Clear to auscultation. Breath sounds equal bilaterally. No wheezes, rales, or rhonchi. GASTROINTESTINAL: Abdomen with post op dressing , tender, distended. Bowel sounds hypoactive GENITOURINARY: Without palpable bladder distension. Morelos catheter in place with clear yellow urine MUSCULOSKELETAL: Extremities without clubbing, cyanosis, or edema. No joint tenderness or effusion noted. No calf tenderness. No mottling or clubbing. LYMPHATICS: No palpable cervical or supraclavicular adenopathy. NEUROLOGICAL: Awake and alert. Motor and sensory grossly within normal limits. Follows commands. clear speech. Moves all extremities. PSYCHIATRIC: No obvious anxiety/depression. no apparent hallucinations or other psychotic thought process. Laboratory Laboratory Tests Test 02/01/17 09:45 White Blood Count 14.1 Red Blood Count 4.46 Hemoglobin 13.2 Hematocrit 39.8 Mean Corpuscular Volume 89.3 Mean Corpuscular Hemoglobin 29.7 Mean Corpuscular Hemoglobin Concent 33.2 Red Cell Distribution Width 13.2 Platelet Count 144 Mean Platelet Volume 9.0 Neutrophils (%) (Auto) 75.4 Lymphocytes (%) (Auto) 15.7 Monocytes (%) (Auto) 8.2 Eosinophils (%) (Auto) 0.5 Basophils (%) (Auto) 0.2 Neutrophils # (Auto) 10.7 Lymphocytes # (Auto) 2.2 Monocytes # (Auto) 1.2 Eosinophils # (Auto) 0.1 Basophils # (Auto) 0.0 CBC Comment DIFF FINAL Differential Comment Blood Urea Nitrogen 19 Creatinine 0.85 Random Glucose 140 Total Protein 5.4 Calcium Level 7.2 Sodium Level 138 Potassium Level 3.7 Chloride Level 106 Carbon Dioxide Level 24.1 Anion Gap 8 Estimat Glomerular Filtration Rate 90 Protein Corrected Calcium 8.1 Date/Time Source Procedure Growth Status 01/29/17 06:50 Blood Peripheral Aerobic Blood Culture - Preliminary NO GROWTH IN 3 DAYS Resulted 01/29/17 06:50 Blood Peripheral Anaerobic Blood Culture - Preliminary NO GROWTH IN 3 DAYS Resulted Result Diagram: 02/01/17 0945 02/01/17 0945 Imaging Last Impressions Abdomen X-Ray 02/01/17 0000 Signed Impressions: Service Date/Time: Wednesday, February 01, 2017 11:14 - CONCLUSION: 1. Air lucency in the upper abdomen concerning for possible free intraperitoneal air. 2. NG tube looped in the stomach. Attention been made to contact the surgical team. Vishal Brewer MD Chest X-Ray 01/29/17 0000 Signed Impressions: Service Date/Time: Sunday, January 29, 2017 13:21 - CONCLUSION: 1. Right internal jugular central line has its tip in the superior vena cava. No pneumothorax is noted. 2. No acute cardiopulmonary disease. Michael Philip MD Abdomen/Pelvis CT 01/29/17 0000 Signed Impressions: Service Date/Time: Sunday, January 29, 2017 06:37 - CONCLUSION: 1. Suspected ischemic bowel process involving the terminal ileum and cecum which is associated with portal gas in the liver. 2. No evidence of organized abscess. 3. Mild hydronephrosis and distended urinary bladder. Kelby Laurent MD Assessment and Plan Assessment and Plan Ischemic bowel sp resection and subsequnt anastomocsis Clostridia perfringens present in surg margins Pt is doing well, hemodynamically stable and afebril Leukocytosis - within expected post-op numbers cont zosyn for untill has BM, takes PO adn WBC < 12 x 72 hrs Discuss[address] Condition With Dr Praveen Rowell,Moriah Alves MD Feb 01, 2017 16:09
[2017-02-02] VITALS (13 sets, daily range): BP systolic 103–142; BP diastolic 71–86; PULSE 94–104; RESP 14–24; TEMP 97.7–98.7; O2SAT 95–100
[2017-02-02] MEDS: CHLORHEXIDINE GLUCONATE 2 % 1 PACK (2 CLOTHS) TOP SCH (01:20)
[2017-02-02] MEDS: PIPERACIL-TAZO 4.5 GM PREMIX 100 ML IV SCH ×4 (01:36→20:11)
[2017-02-02] MEDS: MORPHINE SULFATE 8 MG/ML INJ IV PUSH PRN ×8 (01:36→22:33)
[2017-02-02] MEDS: INSULIN ASPART SUPPLEMENTAL SCALE SQ SCH ×6 (01:36→22:00)
[2017-02-02 05:39] LABS: BICARBONATE 25.8 MEQ/L (21.0-32.0); POTASSIUM 3.3 MEQ/L (3.5-5.1)
[2017-02-02] MEDS: SODIUM CHLOR 0.9% 1000 ML INJ 1,000 ML IV SCH ×2 (05:40→16:56)
[2017-02-02] MEDS: ICU - POTASSIUM CHLORIDE/AQUEOUS SOLN 20 MEQ/100 ML IVPB IV PRN ×2 (06:21→11:25)
[2017-02-02] MEDS: INSULIN DETEMIR 100 UNITS/ML VIAL SQ SCH ×2 (08:11→20:53)
[2017-02-02] MEDS: DOCUSATE SODIUM 50 MG/SENNA 8.6 MG TAB PO SCH ×2 (08:11→20:53)
[2017-02-02] MEDS: PANTOPRAZOLE SODIUM 40 MG VIAL IV PUSH SCH (08:11)
--- NOTE | 2017-02-02 11:03 | HHI.CCPN ---
Subjective Remarks/Hospital Course 66 y/o homeless man presents to [place] with abdominal pain. Hx of cirrhosis with varices and bleeds. Pancreatitis and ERCP in past. Presents with glucose 1200 and normal bicarb. beta-hydroxybutyrate < 1.0. CT abdomen with portal vein air and suspicious cecum wall, likely early necrosis. On arrival to [facility] he has peritoneal irritation right side abdomen. 01/30: Florid sepsis with gangrenous gut yesterday. Source control performed in OR and now glucose management is possible. 01/31: Wall of small bowel alledgedly contains clostridium perfringens by phone call pathology report. Plan to hook back together today. Afebrile, normal WBC, normotensive, looks well. 02/01: Looks good today following bowel reconnection. Well hydrated. 02/02: Patient presented 5 days ago with blood glucose 1200, Creatinine 3.4, and severe dehydration. Terminal ileum and right colon were ischemic and resected that night. Abdomen left open. Two days later he was taken to OR to hook remaining jejunum to transverse colon and wound was closed. Pip/ALFREDO until wbc normal. Feed when surgery ordered only. Objective Vital Signs Date Time Temp Pulse Resp B/P (MAP) Pulse Ox O2 Delivery O2 Flow Rate FiO2 02/02/17 10:00 99 02/02/17 08:00 98.4 15 107/73 (84) 99 02/02/17 07:00 Room Air 02/01/17 08:00 2.00 Intake and Output 02/02/17 02/02/17 02/02/17 07:59 15:59 23:59 Intake Total 1067 ml Output Total 890 ml Balance 177 ml Result Diagram: 02/01/17 0945 02/02/17 0425 Objective Remarks Head: Normal. Lungs: Clear, no wheezes or crackles. Heart: NL S1S2, RRR. No JVD. Abdomen: Midline wound closed. Nondistended, bs active Extremities: Warm, well perfused. Neuro: O X 3, alert, cooperative. M/S grossly intact. A/P Assessment and Plan Assessment: 1. Abdominal pain, probable ischemic/necrotic bowel. 1a. Right colon resection (01/29) 1b. Ileum connected to colon, wound closed (01/31) 2. Hyperglycemia. 3. ELENA, severe -> resolved 4. Hep B and C 5. Cirrhosis with portal hypertension. 6. DM, Type 2 Plan: 1. Aggressive hydration with isotonic fluid. 2. Broad abx coverage until WBC normal. 3. Insulin gtt -> levemir, SSI 4. Q1h glucose -> q4h 5. Protonix. 6. SCDs. 7. Morelos. 8. Lap Friday for relook. 9. Convert to LA insulin and SSI 10. Heparin tid Overall impression: gut resected and glucose control improved. Reconnected 01/31. Good progress. Melchor Harris MD Feb 02, 2017 11:03
[2017-02-02] MEDS: KETOROLAC TROMETHAMINE 30 MG/ML (IVP) VIAL IV PUSH SCH ×3 (12:19→22:43)
--- NOTE | 2017-02-02 13:12 | HHI.PR ---
Subjective Subjective Notes no acute issues, ng sxn, no nausea, Objective Vitals/I&O Vital Signs Date Time Temp Pulse Resp B/P (MAP) Pulse Ox O2 Delivery O2 Flow Rate FiO2 02/02/17 12:00 98.3 103 14 142/86 (104) 99 02/02/17 07:00 Room Air 02/01/17 08:00 2.00 Labs Laboratory Tests Test 02/02/17 04:25 Blood Urea Nitrogen 14 Creatinine 0.81 Random Glucose 106 Calcium Level 7.7 Sodium Level 140 Potassium Level 3.3 Chloride Level 106 Carbon Dioxide Level 25.8 Anion Gap 8 Estimat Glomerular Filtration Rate 96 Date/Time Source Procedure Growth Status 01/29/17 06:50 Blood Peripheral Aerobic Blood Culture - Preliminary NO GROWTH IN 4 DAYS Resulted 01/29/17 06:50 Blood Peripheral Anaerobic Blood Culture - Preliminary NO GROWTH IN 4 DAYS Resulted Radiology Last 48 hours Impressions Chest X-Ray 01/29/17 0000 Signed Impressions: Service Date/Time: Sunday, January 29, 2017 05:52 - CONCLUSION: 1. No acute findings. Theodore Mckay MD Abdomen/Pelvis CT 01/29/17 0000 Signed Impressions: Service Date/Time: Sunday, January 29, 2017 06:37 - CONCLUSION: 1. Suspected ischemic bowel process involving the terminal ileum and cecum which is associated with portal gas in the liver. 2. No evidence of organized abscess. 3. Mild hydronephrosis and distended urinary bladder. Kelby Laurent MD Abdomen X-Ray 01/29/17 0000 Signed Impressions: Service Date/Time: Sunday, January 29, 2017 05:57 - CONCLUSION: 1. Mild ileus. No free air. Advanced degenerative changes in the lumbar spine. Theodore Mckay MD Abdomen: Other (soft incision with whicks scant blood) A/P Problem List: (1) Abdominal pain ICD Codes: R10.9 - Unspecified abdominal pain Status: Acute (2) Ischemic necrosis of large intestine ICD Codes: K55.049 - Acute infarction of large intestine, extent unspecified Status: Acute (3) Ischemia, bowel ICD Codes: K55.9 - Vascular disorder of intestine, unspecified Status: Acute (4) Chronic obstructive pulmonary disease ICD Codes: J44.9 - Chronic obstructive pulmonary disease Status: Chronic (5) Chronic hepatitis C virus infection ICD Codes: B18.2 - Chronic viral hepatitis C Status: Chronic (6) Diabetic neuropathy ICD Codes: E11.40 - Diabetic neuropathy Status: Chronic (7) Hyponatremia ICD Codes: E87.1 - Hypo-osmolality and hyponatremia Status: Acute (8) Cirrhosis of liver ICD Codes: K74.60 - Hepatic cirrhosis Status: Chronic (9) COPD (chronic obstructive pulmonary disease) ICD Codes: J44.9 - Chronic obstructive pulmonary disease, unspecified Status: Acute (10) History of DVT (deep vein thrombosis) ICD Codes: Z86.718 - History of deep venous thrombosis Status: Chronic (11) History of major abdominal surgery ICD Codes: Z98.890 - Other specified postprocedural states Status: Chronic (12) Bladder cancer ICD Codes: C67.9 - Malignant neoplasm of bladder, unspecified Status: Chronic Assessment and Plan POD2 exp lap, bowel resection with anastomosis doing well ng sxn, ok for clamp trial today, sips and ice ok to transfer to floor add tordol for pain control labs pending for this am. Problem Qualifiers (1) Abdominal pain: Qualified Codes: R10.84 - Generalized abdominal pain Arjun Murray MD Feb 02, 2017 13:12
[2017-02-02] MEDS: HEPARIN SODIUM - SQ 10,000 UNITS/ML VIAL SQ SCH ×2 (14:29→21:34)
[2017-02-02] MEDS: POTASSIUM CHLORIDE 25 MEQ EFFERVESCENT TAB PO PRN (18:36)
[2017-02-03] VITALS (13 sets, daily range): BP systolic 97–138; BP diastolic 64–79; PULSE 62–103; RESP 12–23; TEMP 97.7–98.5; O2SAT 97–100
[2017-02-03] MEDS: MORPHINE SULFATE 8 MG/ML INJ IV PUSH PRN ×10 (00:29→19:45)
[2017-02-03] MEDS: PIPERACIL-TAZO 4.5 GM PREMIX 100 ML IV SCH ×4 (00:29→17:59)
[2017-02-03] MEDS: INSULIN ASPART SUPPLEMENTAL SCALE SQ SCH ×6 (02:00→20:45)
[2017-02-03] MEDS: SODIUM CHLOR 0.9% 1000 ML INJ 1,000 ML IV SCH ×3 (02:56→22:18)
[2017-02-03] MEDS: CHLORHEXIDINE GLUCONATE 2 % 1 PACK (2 CLOTHS) TOP SCH (03:31)
[2017-02-03] MEDS: KETOROLAC TROMETHAMINE 30 MG/ML (IVP) VIAL IV PUSH SCH ×4 (05:31→21:51)
[2017-02-03] MEDS: HEPARIN SODIUM - SQ 10,000 UNITS/ML VIAL SQ SCH ×3 (05:31→21:31)
[2017-02-03] MEDS: POTASSIUM CHLORIDE 25 MEQ EFFERVESCENT TAB PO PRN (06:12)
[2017-02-03 06:23] LABS: AUTOMATED NEUTROPHIL # 6.2 TH/MM3 (1.8-7.7); BASOPHIL % 0.3 % (0.0-2.0); EOSINOPHIL # 0.1 TH/MM3 (0-0.4); EOSINOPHIL % 0.8 % (0.0-4.0); HEMATOCRIT 37.2 % (39.0-51.0); HEMO FLAGS DIFF FINAL; LYMPH % 22.8 % (9.0-44.0); LYMPHOCYTE # 2.1 TH/MM3 (1.0-4.8); MEAN CELL VOLUME 88.6 FL (80.0-100.0); MEAN CORPUSCULAR HEMOGLOBIN 29.9 PG (27.0-34.0); MEAN CORPUSCULAR HGB CONC 33.8 % (32.0-36.0); MONO % 9.9 % (0.0-8.0); NEUT % 66.2 % (16.0-70.0); PLATELET COUNT 140 TH/MM3 (150-450); RED CELL DISTRIBUTION WIDTH 13.3 % (11.6-17.2); WHITE BLOOD COUNT 9.4 TH/MM3 (4.0-11.0)
[2017-02-03 07:07] LABS: BICARBONATE 22.5 MEQ/L (21.0-32.0); POTASSIUM 3.9 MEQ/L (3.5-5.1)
[2017-02-03 07:27] LABS: CALCIUM-PROTEIN CORRECTED 8.2 MG/DL (8.5-10.1)
[2017-02-03] MEDS: PANTOPRAZOLE SODIUM 40 MG VIAL IV PUSH SCH (07:39)
[2017-02-03] MEDS: DOCUSATE SODIUM 50 MG/SENNA 8.6 MG TAB PO SCH ×2 (07:40→19:46)
--- NOTE | 2017-02-03 09:08 | HHI.PR ---
cc: Theodore Jordan MD Subjective Subjective Notes DAILY PROGRESS NOTE FOR SURGICAL ATTENDING, DR. THEODORE JORDAN Patient very thankful Said he had a bowel movement today Ambulating in the intensive care unit Pain under control He would like the NG tube removed Objective Vitals/I&O Vital Signs Date Time Temp Pulse Resp B/P (MAP) Pulse Ox O2 Delivery O2 Flow Rate FiO2 02/03/17 08:33 98 21 02/03/17 08:00 98.5 102 12 102/67 (79) 02/03/17 07:00 Room Air 02/01/17 08:00 2.00 Labs Laboratory Tests Test 02/02/17 17:00 02/03/17 05:32 Potassium Level 3.4 3.9 White Blood Count 9.4 Red Blood Count 4.20 Hemoglobin 12.5 Hematocrit 37.2 Mean Corpuscular Volume 88.6 Mean Corpuscular Hemoglobin 29.9 Mean Corpuscular Hemoglobin Concent 33.8 Red Cell Distribution Width 13.3 Platelet Count 140 Mean Platelet Volume 8.9 Neutrophils (%) (Auto) 66.2 Lymphocytes (%) (Auto) 22.8 Monocytes (%) (Auto) 9.9 Eosinophils (%) (Auto) 0.8 Basophils (%) (Auto) 0.3 Neutrophils # (Auto) 6.2 Lymphocytes # (Auto) 2.1 Monocytes # (Auto) 0.9 Eosinophils # (Auto) 0.1 Basophils # (Auto) 0.0 CBC Comment DIFF FINAL Differential Comment Blood Urea Nitrogen 12 Creatinine 0.77 Random Glucose 273 Total Protein 5.3 Calcium Level 7.2 Sodium Level 133 Chloride Level 104 Carbon Dioxide Level 22.5 Anion Gap 7 Estimat Glomerular Filtration Rate 101 Protein Corrected Calcium 8.2 Date/Time Source Procedure Growth Status 01/29/17 06:50 Blood Peripheral Aerobic Blood Culture - Preliminary NO GROWTH IN 4 DAYS Resulted 01/29/17 06:50 Blood Peripheral Anaerobic Blood Culture - Preliminary NO GROWTH IN 4 DAYS Resulted Radiology Last Impressions Abdomen X-Ray 02/01/17 0000 Signed Impressions: Service Date/Time: Wednesday, February 01, 2017 11:14 - CONCLUSION: 1. Air lucency in the upper abdomen concerning for possible free intraperitoneal air. 2. NG tube looped in the stomach. Attention been made to contact the surgical team. Vishal Brewer MD Chest X-Ray 01/29/17 0000 Signed Impressions: Service Date/Time: Sunday, January 29, 2017 13:21 - CONCLUSION: 1. Right internal jugular central line has its tip in the superior vena cava. No pneumothorax is noted. 2. No acute cardiopulmonary disease. Michael Philip MD Abdomen/Pelvis CT 01/29/17 0000 Signed Impressions: Service Date/Time: Sunday, January 29, 2017 06:37 - CONCLUSION: 1. Suspected ischemic bowel process involving the terminal ileum and cecum which is associated with portal gas in the liver. 2. No evidence of organized abscess. 3. Mild hydronephrosis and distended urinary bladder. Kelby Laurent MD Cardiovascular: Regular Lungs: Clear Abdomen: Non-distended, Post-op tenderness Extremities: SCD's on Wound Wound : Wound Location: Abdomen Appearance: Clean & Dry Drainage: Clear Dressing: Dry (Betadine quintin removed long-term wound healing) A/P Problem List: (1) Diabetes mellitus with hyperglycemia ICD Codes: E11.65 - Type 2 diabetes mellitus with hyperglycemia Status: Acute (2) Status post small bowel resection ICD Codes: Z90.49 - Acquired absence of other specified parts of digestive tract Status: Acute (3) Abdominal pain ICD Codes: R10.9 - Unspecified abdominal pain Status: Resolved (4) Ischemic necrosis of large intestine ICD Codes: K55.049 - Acute infarction of large intestine, extent unspecified Status: Resolved (5) Ischemia, bowel ICD Codes: K55.9 - Vascular disorder of intestine, unspecified Status: Resolved (6) Chronic obstructive pulmonary disease ICD Codes: J44.9 - Chronic obstructive pulmonary disease Status: Chronic (7) Chronic hepatitis C virus infection ICD Codes: B18.2 - Chronic viral hepatitis C Status: Chronic (8) Diabetic neuropathy ICD Codes: E11.40 - Diabetic neuropathy Status: Chronic (9) Hyponatremia ICD Codes: E87.1 - Hypo-osmolality and hyponatremia Status: Acute (10) Cirrhosis of liver ICD Codes: K74.60 - Hepatic cirrhosis Status: Chronic (11) COPD (chronic obstructive pulmonary disease) ICD Codes: J44.9 - Chronic obstructive pulmonary disease, unspecified Status: Acute (12) History of DVT (deep vein thrombosis) ICD Codes: Z86.718 - History of deep venous thrombosis Status: Chronic (13) History of major abdominal surgery ICD Codes: Z98.890 - Other specified postprocedural states Status: Chronic (14) Bladder cancer ICD Codes: C67.9 - Malignant neoplasm of bladder, unspecified Status: Chronic Assessment and Plan 66-year-old gentleman who came in with uncontrolled diabetes and severe hyponatremia with ischemic bowel secondary to an infectious cause. Has successfully undergone 2 operative interventions to resect the ischemic and bowel. So far is made a good recovery today we removed his NG tube will advance his diet Plan transfer out of intensive care unit with consultation with medical service for controlling his medical issues Case management consultation for assistance in his social situation with having no home Slowly advance diet and wean pain medication Attending Statement NOTE FOR SURGICAL ATTENDING, DR. THEODORE JORDAN I agree with above assessment and plan. I attest that I had a [id number] encounter with the patient on the same day, and personally performed and documented my assessment and findings in the medical record. The following services were provided during this hospital visit: Chart data review, vital sign assessments/reviewing monitor data Review of consultations notes if present. Medication orders/review and/or management Ordering and/or reviewing lab tests Ordering and/or interpreting/reviewing x-rays and/or diagnostic studies Care of the patient and discussion of the patient with the care team Documentation time To help prompt me to consider important information that might be impacting today's encounter and assessment, information from prior notes written by myself or my colleagues may have been "brought forward/copy and pasted" into today's note. Problem Qualifiers (1) Abdominal pain: Qualified Codes: R10.84 - Generalized abdominal pain Theodore Jordan MD Feb 03, 2017 09:08
[2017-02-03] MEDS: INSULIN DETEMIR 100 UNITS/ML VIAL SQ SCH ×2 (09:32→21:30)
--- NOTE | 2017-02-03 09:40 | MP ---
cc: BRET JORDAN M.D. DATE OF SURGERY: 01/31/2017 PREOPERATIVE DIAGNOSIS Previous ischemic bowel, distal ileum, cecum, ascending colon, with previously stapled off distally ileum and proximal transverse colon. POSTOPERATIVE DIAGNOSIS Previous ischemic bowel, distal ileum, cecum, ascending colon, with previously stapled off distally ileum and proximal transverse colon. PROCEDURE 1. Removal of temporary abdominal closure device. 2. Abdominal washout. 3. Repositioning of NG tube to allow adequate drainage of the abdominal gastric contents. 4. Retrograde emptying of entirety of the small bowel into the stomach for decompression. 5. Resection of distal terminal ileum to obtain clear margins for pathology report to completely normal-looking peristaltic small bowel. 6. Anastomosis of ileum to proximal transverse colon in a [id number]-[id number] functional end-to-end anastomosis. 7. Abdominal wound closure. ANESTHESIA General. SURGEON Dr. Jordan. INDICATION The patient is a pleasant 66-year-old gentleman. This is his second operation. Initially he had ischemic colon and terminal ileum which was resected. He was closed with a temporary abdominal wound device to stabilize him as his sodium and glucose were out of control with his diabetes. He has been stabilized and doing fairly well and this is a second look to see if we can reconnect his bowel. The interim pathology report was discussed with Dr. Monreal showing Clostridium perfringens clear in the large bowel but some in the distal ileum. For this reason further resection of ileum was done to normal-appearing ileum. DETAILS OF PROCEDURE The patient is taken to the operating room. The VAC device is removed. His abdomen is prepped. We first note that the small bowel is fairly dilated. More adhesions are taken down from the left upper quadrant where he has had previous surgery. The stomach is fairly dilated. The NG tube must be repositioned as it is just in the proximal esophagus. It is brought into the stomach and we are able to evacuated a fair amount of the stomach. With this in mind we then in a retrograde fashion slowly milk the entire contents of the small bowel into the stomach to allow decompression to allow visualization of further organs. It is noted that the small bowel looks completely normal. It is peristalsing once it was decompressed. The distal segment of about 8-10 cm is a little dusky and thickened and for this reason this is resected using the SWATI stapling device. The proximal transverse colon looks completely normal as does the splenic flexure and the descending colon and sigmoid. We then irrigate copiously. I did get a very small rent in the tip of the spleen along the splenic flexure and this is cauterized and some hemostatic SNoW is placed and there is excellent hemostasis. We then do a [id number]-[id number] functional end anastomosis by making two enterotomies, one on the large bowel and one on the small bowel. The mucosa is inspected. It looks nice and pink without abnormality. The SWATI-55 is then placed and a [id number]-ws-[id number] functional end anastomosis is performed. The remaining enterotomy is closed with a TX-60. This staple line is oversewn and suture is placed along the crotch of the previously placed suture. The mesentery is closed with a 3-0 silk suture to prevent internal herniation. We then irrigate copiously. Again the bowel is peristalsing and looks fairly normal. We wash out with 2 liters of saline. There is excellent hemostasis. We then close the midline fascia with a #1 PDS loop, and the skin is loosely re-approximated with the skin stapling device with Betadine quintin placed in between the staple lines. An abdominal binder is placed. The patient is returned to the recovery room with no immediate post-op complication. Bret Jordan MD JDB/BT /6:20 PM /9:25 AM
--- NOTE | 2017-02-03 13:11 | HHI.PR ---
Subjective Remarks Follow-up for ischemic bowel, diabetes mellitus. Patient is currently doing well. He had bowel movements and bloating well. Denies any chest pain, shortness of breath, fever or chills. He still has abdominal pain. Objective Vitals Vital Signs Date Time Temp Pulse Resp B/P (MAP) Pulse Ox O2 Delivery O2 Flow Rate FiO2 02/03/17 10:00 103 02/03/17 08:33 98 21 02/03/17 08:00 98.5 102 12 102/67 (79) 98 02/03/17 08:00 102 02/03/17 07:00 98 Room Air 02/03/17 06:31 14 02/03/17 06:00 102 02/03/17 05:40 18 02/03/17 04:00 98.2 102 14 111/79 (90) 100 02/03/17 04:00 102 02/03/17 02:00 102 02/03/17 00:00 98.4 62 23 138/73 (94) 97 02/03/17 00:00 102 02/02/17 22:00 98 02/02/17 20:51 95 02/02/17 20:00 98.2 98 24 110/71 (84) 100 02/02/17 20:00 98 02/02/17 19:00 100 Room Air 02/02/17 18:00 95 02/02/17 16:00 97.7 94 15 103/76 (85) 99 02/02/17 16:00 99 02/02/17 14:00 103 I/O 02/02/17 02/02/17 02/02/17 02/03/17 02/03/17 02/03/17 07:00 15:00 23:00 07:00 15:00 23:00 Intake Total 1067 ml 100 ml 1591 ml 344 ml Output Total 890 ml 750 ml 1000 ml Balance 177 ml 100 ml 841 ml -656 ml IV Total 1067 ml 100 ml 1141 ml 344 ml Other 450 ml Output Urine Total 850 ml 750 ml 1000 ml Gastric Drainage Total 40 ml 0 ml 0 ml # Bowel Movements 0 Result Diagram: 02/03/17 0532 02/03/17 0532 Imaging Last Impressions Abdomen X-Ray 02/01/17 0000 Signed Impressions: Service Date/Time: Wednesday, February 01, 2017 11:14 - CONCLUSION: 1. Air lucency in the upper abdomen concerning for possible free intraperitoneal air. 2. NG tube looped in the stomach. Attention been made to contact the surgical team. Vishal Brewer MD Chest X-Ray 01/29/17 0000 Signed Impressions: Service Date/Time: Sunday, January 29, 2017 13:21 - CONCLUSION: 1. Right internal jugular central line has its tip in the superior vena cava. No pneumothorax is noted. 2. No acute cardiopulmonary disease. Michael Philip MD Abdomen/Pelvis CT 01/29/17 0000 Signed Impressions: Service Date/Time: Sunday, January 29, 2017 06:37 - CONCLUSION: 1. Suspected ischemic bowel process involving the terminal ileum and cecum which is associated with portal gas in the liver. 2. No evidence of organized abscess. 3. Mild hydronephrosis and distended urinary bladder. Kelby Laurent MD Objective Remarks GENERAL: Alert, oriented 3, NAD. SKIN: Warm and dry. HEAD: Normocephalic. EYES: No scleral icterus. No injection or drainage. NECK: Supple, trachea midline. No JVD or lymphadenopathy. CARDIOVASCULAR: Regular rate and rhythm without murmurs, gallops, or rubs. RESPIRATORY: Breath sounds equal bilaterally. No accessory muscle use. GASTROINTESTINAL: Abdomen soft, nondistended. MUSCULOSKELETAL: No cyanosis, or edema. Has some abdominal pain. BACK: Nontender without obvious deformity. No CVA tenderness. Procedures 01/29/2017 PROCEDURE 1. Exploratory laparotomy, lysis of adhesions. 2. Right colon resection 3. small bowel resection about the 20 cm distal ileum. 4. Application of temporary abdominal wound closure device. 01/31/2017 PROCEDURE 1. Removal of temporary abdominal closure device. 2. Abdominal washout. 3. Repositioning of NG tube to allow adequate drainage of the abdominal gastric contents. 4. Retrograde emptying of entirety of the small bowel into the stomach for decompression. 5. Resection of distal terminal ileum to obtain clear margins for pathology report to completely normal-looking peristaltic small bowel. 6. Anastomosis of ileum to proximal transverse colon in a habi-sx-vela functional end-to-end anastomosis. 7. Abdominal wound closure. A/P Problem List: (1) Acute intestinal ischemic syndrome ICD Code: K55.059 - Acute (reversible) ischemia of intestine, part and extent unspecified (2) Diabetes ICD Code: E11.9 - Diabetes mellitus Status: Acute Assessment and Plan Mr. Parks is a pleasant 66-year-old male with a history of liver cirrhosis, bladder cancer, diabetes mellitus who presented to the hospital on 01/29/2017 with severe abdominal pain associated with nausea and vomiting. CT abdomen pelvis indicated ischemic bowel. Patient's blood sugar was around 1200 on admission. Patient underwent surgical intervention by general surgery including exploratory laparoscopy, lysis of adhesions and right colon resection as well as small bowel resection. Infectious disease was consulted and kept patient on Zosyn. - Ischemic bowel - Status post right colon resection as well as a small bowel resection. - Morphine for pain PRN - Surgery following. - Continue Zosyn. WBC is 9.4K today. Patient is also tolerating PO okay now. If he continues to tolerate PO, we can likely switch to PO abx. - Diabetes mellitus - Currently on Levemir 10 units twice a day. - We'll switch to Levemir 12 units daily at bedtime. Continue sliding scale insulin. - As he tolerates more by mouth nutrition, we may need to add pre-meal insulin. - Acute kidney injury - resolved. Creatinine on admission 3.2 and currently 0.77. - History of hepatitis B and C. - History of liver cirrhosis - No acute concerns. - Outpatient follow-up. Transfer to floor. Full code. Heparin subcutaneous. Padma Drew DO Feb 03, 2017 1:11 pm
[2017-02-03] MEDS: ONDANSETRON HCL 4 MG/2 ML VIAL IV PUSH PRN (19:45)
[2017-02-04] VITALS (11 sets, daily range): BP systolic 106–141; BP diastolic 60–85; PULSE 97–113; RESP 14–22; TEMP 97.8–98.6; O2SAT 98–100
[2017-02-04] MEDS: PIPERACIL-TAZO 4.5 GM PREMIX 100 ML IV SCH ×5 (00:05→23:34)
[2017-02-04] MEDS: MORPHINE SULFATE 8 MG/ML INJ IV PUSH PRN ×9 (00:22→23:34)
[2017-02-04] MEDS: CHLORHEXIDINE GLUCONATE 2 % 1 PACK (2 CLOTHS) TOP SCH (00:22)
[2017-02-04] MEDS: INSULIN ASPART SUPPLEMENTAL SCALE SQ SCH ×6 (02:00→21:06)
[2017-02-04] MEDS: ONDANSETRON HCL 4 MG/2 ML VIAL IV PUSH PRN (03:40)
[2017-02-04] MEDS: KETOROLAC TROMETHAMINE 30 MG/ML (IVP) VIAL IV PUSH SCH ×4 (03:41→21:11)
[2017-02-04] MEDS: HEPARIN SODIUM - SQ 10,000 UNITS/ML VIAL SQ SCH ×3 (06:42→21:06)
[2017-02-04] MEDS: DOCUSATE SODIUM 50 MG/SENNA 8.6 MG TAB PO SCH ×2 (07:41→21:00)
[2017-02-04] MEDS: PANTOPRAZOLE SODIUM 40 MG VIAL IV PUSH SCH (07:41)
[2017-02-04] MEDS: SODIUM CHLOR 0.9% 1000 ML INJ 1,000 ML IV SCH ×2 (08:56→11:07)
[2017-02-04] MEDS: INSULIN DETEMIR 100 UNITS/ML VIAL SQ SCH ×2 (09:00→21:06)
--- NOTE | 2017-02-04 11:04 | HHI.PR ---
cc: Theodore Jordan MD Subjective Subjective Notes DAILY PROGRESS NOTE FOR SURGICAL ATTENDING, DR. THEODORE JORDAN Doing well Would like more to eat Had a bowel movement last night minimal abdominal discomfort Objective Vitals/I&O Vital Signs Date Time Temp Pulse Resp B/P (MAP) Pulse Ox O2 Delivery O2 Flow Rate FiO2 02/04/17 10:00 100 02/04/17 08:00 98.5 15 115/72 (86) 100 02/04/17 07:00 Room Air 02/03/17 21:48 21 02/01/17 08:00 2.00 Labs Date/Time Source Procedure Growth Status 01/29/17 06:50 Blood Peripheral Aerobic Blood Culture - Final NO GROWTH IN 5 DAYS Complete 01/29/17 06:50 Blood Peripheral Anaerobic Blood Culture - Final NO GROWTH IN 5 DAYS Complete Radiology Last Impressions Abdomen X-Ray 9/16/17 0000 Signed Impressions: Service Date/Time: Wednesday, February 01, 2017 11:14 - CONCLUSION: 1. Air lucency in the upper abdomen concerning for possible free intraperitoneal air. 2. NG tube looped in the stomach. Attention been made to contact the surgical team. Vishal Brewer MD Chest X-Ray 01/29/17 0000 Signed Impressions: Service Date/Time: Sunday, January 29, 2017 13:21 - CONCLUSION: 1. Right internal jugular central line has its tip in the superior vena cava. No pneumothorax is noted. 2. No acute cardiopulmonary disease. Michael Philip MD Abdomen/Pelvis CT 01/29/17 0000 Signed Impressions: Service Date/Time: Sunday, January 29, 2017 06:37 - CONCLUSION: 1. Suspected ischemic bowel process involving the terminal ileum and cecum which is associated with portal gas in the liver. 2. No evidence of organized abscess. 3. Mild hydronephrosis and distended urinary bladder. Kelby Laurent MD Cardiovascular: Regular Lungs: Clear Abdomen: Post-op tenderness, BS normal Extremities: Perfused Wound Wound : Wound Location: Abdomen Appearance: Clean & Dry Drainage: Clear Dressing: Dry (Betadine quintin removed) A/P Problem List: (1) Status post small bowel resection ICD Codes: Z90.49 - Acquired absence of other specified parts of digestive tract Status: Acute (2) Ischemia, bowel ICD Codes: K55.9 - Vascular disorder of intestine, unspecified Status: Resolved (3) Abdominal pain ICD Codes: R10.9 - Unspecified abdominal pain Status: Resolved (4) Ischemic necrosis of large intestine ICD Codes: K55.049 - Acute infarction of large intestine, extent unspecified Status: Resolved (5) Diabetes mellitus with hyperglycemia ICD Codes: E11.65 - Type 2 diabetes mellitus with hyperglycemia Status: Acute (6) Chronic obstructive pulmonary disease ICD Codes: J44.9 - Chronic obstructive pulmonary disease Status: Chronic (7) Chronic hepatitis C virus infection ICD Codes: B18.2 - Chronic viral hepatitis C Status: Chronic (8) Diabetic neuropathy ICD Codes: E11.40 - Diabetic neuropathy Status: Chronic (9) Hyponatremia ICD Codes: E87.1 - Hypo-osmolality and hyponatremia Status: Acute (10) Cirrhosis of liver ICD Codes: K74.60 - Hepatic cirrhosis Status: Chronic (11) COPD (chronic obstructive pulmonary disease) ICD Codes: J44.9 - Chronic obstructive pulmonary disease, unspecified Status: Acute (12) History of DVT (deep vein thrombosis) ICD Codes: Z86.718 - History of deep venous thrombosis Status: Chronic (13) History of major abdominal surgery ICD Codes: Z98.890 - Other specified postprocedural states Status: Chronic (14) Bladder cancer ICD Codes: C67.9 - Malignant neoplasm of bladder, unspecified Status: Chronic Assessment and Plan 66-year-old gentleman who came in with uncontrolled diabetes and severe hyponatremia with ischemic bowel secondary to an infectious cause. Has successfully undergone 2 operative interventions to resect the ischemic and bowel. So far is made a excellent recovery Plan transfer out of intensive care unit with consultation with medical service for controlling his medical issues Case management consultation for assistance in his social situation with having no home Slowly advance diet and wean pain medication Attending Statement NOTE FOR SURGICAL ATTENDING, DR. THEODORE JORDAN I attest that I had a [id number]-[id number] encounter with the patient on the same day, and personally performed and documented my assessment and findings in the medical record. The following services were provided during this hospital visit: Chart data review, vital sign assessments/reviewing monitor data Review of consultations notes if present. Medication orders/review and/or management Ordering and/or reviewing lab tests Ordering and/or interpreting/reviewing x-rays and/or diagnostic studies Care of the patient and discussion of the patient with the care team Documentation time To help prompt me to consider important information that might be impacting today's encounter and assessment, information from prior notes written by myself or my colleagues may have been "brought forward/copy and pasted" into today's note. Problem Qualifiers (1) Abdominal pain: Qualified Codes: R10.84 - Generalized abdominal pain Theodore Jordan MD Feb 04, 2017 11:04
--- NOTE | 2017-02-04 18:31 | PD.WCN.NOT ---
Wound Consult Description: Late entry from 02/04/2017 1500: Consult received from Doctor Steven for pressure ulcer to sacrum Communicated with: Late entry from 02/04/2017 1500 MARIUSZ Allen Recommendation: Late entry from 02/04/2017 1500: Cleansed bilateral buttocks with soap and water and pat dry before applying Calazime barrier cream BID and PRN. Please leave buttock area open to air. Additional Information: Late entry from 02/04/2017 1500: Patient seen for evaluation of possible pressure ulcer to sacrum. Patient able to turn to R side with assistance of clinical writer for assessment. Patient noted with small fissure to gluteal cleft measuring ~0.5cm x ~0.1cm. with macerated skin to periwound.Wound is moisture related not pressure. Cleansed gluteal cleft fissure with normal saline and patted dry before applying thick layer of calazime barrier cream. Left gluteal cleft and bilateral buttocks open to air. Archana Espino [facility] Feb 04, 2017 18:31
--- NOTE | 2017-02-04 21:40 | HHI.PR ---
Subjective Remarks Follow-up for ischemic bowel, diabetes mellitus. Patient was seen early afternoon. Patient is doing well. No fever, chills. Objective Vitals Vital Signs Date Time Temp Pulse Resp B/P (MAP) Pulse Ox O2 Delivery O2 Flow Rate FiO2 02/04/17 21:10 98 02/04/17 18:00 109 02/04/17 16:00 97.8 104 14 120/60 (80) 98 02/04/17 16:00 104 02/04/17 14:00 103 02/04/17 12:00 98.5 113 20 119/80 (93) 98 02/04/17 12:00 113 02/04/17 10:00 100 02/04/17 08:00 98.5 104 15 115/72 (86) 100 02/04/17 08:00 104 02/04/17 07:00 99 Room Air 02/04/17 04:00 97 02/04/17 04:00 98.6 97 22 106/76 (86) 99 02/04/17 03:46 15 02/04/17 00:00 98.3 104 20 141/75 (97) 100 02/04/17 00:00 104 02/03/17 21:48 99 21 I/O 02/03/17 02/03/17 02/03/17 02/04/17 02/04/17 02/04/17 07:00 15:00 23:00 07:00 15:00 23:00 Intake Total 344 ml 2751 ml 240 ml 383 ml 880 ml Output Total 1000 ml 3 ml 300 ml Balance -656 ml 2751 ml 237 ml 383 ml 580 ml Intake Oral 1480 ml 240 ml 780 ml IV Total 344 ml 383 ml 100 ml Other 1271 ml Output Urine Total 1000 ml 300 ml Stool Total 3 ml Gastric Drainage Total 0 ml # Voids 5 3 2 # Bowel Movements 2 2 Result Diagram: 02/03/17 0532 02/03/17 0532 Imaging Last Impressions Abdomen X-Ray 02/01/17 0000 Signed Impressions: Service Date/Time: Wednesday, February 01, 2017 11:14 - CONCLUSION: 1. Air lucency in the upper abdomen concerning for possible free intraperitoneal air. 2. NG tube looped in the stomach. Attention been made to contact the surgical team. Vishal Brewer MD Chest X-Ray 01/29/17 0000 Signed Impressions: Service Date/Time: Sunday, January 29, 2017 13:21 - CONCLUSION: 1. Right internal jugular central line has its tip in the superior vena cava. No pneumothorax is noted. 2. No acute cardiopulmonary disease. Michael Philip MD Abdomen/Pelvis CT 01/29/17 0000 Signed Impressions: Service Date/Time: Sunday, January 29, 2017 06:37 - CONCLUSION: 1. Suspected ischemic bowel process involving the terminal ileum and cecum which is associated with portal gas in the liver. 2. No evidence of organized abscess. 3. Mild hydronephrosis and distended urinary bladder. Kelby Laurent MD Objective Remarks GENERAL: Alert, oriented 3, NAD. SKIN: Warm and dry. HEAD: Normocephalic. EYES: No scleral icterus. No injection or drainage. NECK: Supple, trachea midline. No JVD or lymphadenopathy. CARDIOVASCULAR: Regular rate and rhythm without murmurs, gallops, or rubs. RESPIRATORY: Breath sounds equal bilaterally. No accessory muscle use. GASTROINTESTINAL: Abdomen soft, nondistended. MUSCULOSKELETAL: No cyanosis, or edema. Has some abdominal pain. BACK: Nontender without obvious deformity. No CVA tenderness. Procedures 01/29/2017 PROCEDURE 1. Exploratory laparotomy, lysis of adhesions. 2. Right colon resection 3. small bowel resection about the 20 cm distal ileum. 4. Application of temporary abdominal wound closure device. 01/31/2017 PROCEDURE 1. Removal of temporary abdominal closure device. 2. Abdominal washout. 3. Repositioning of NG tube to allow adequate drainage of the abdominal gastric contents. 4. Retrograde emptying of entirety of the small bowel into the stomach for decompression. 5. Resection of distal terminal ileum to obtain clear margins for pathology report to completely normal-looking peristaltic small bowel. 6. Anastomosis of ileum to proximal transverse colon in a [id number] functional end-to-end anastomosis. 7. Abdominal wound closure. A/P Problem List: (1) Acute intestinal ischemic syndrome ICD Code: K55.059 - Acute (reversible) ischemia of intestine, part and extent unspecified (2) Diabetes ICD Code: E11.9 - Diabetes mellitus Status: Acute Assessment and Plan Mr. Parks is a pleasant 66-year-old male with a history of liver cirrhosis, bladder cancer, diabetes mellitus who presented to the hospital on 01/29/2017 with severe abdominal pain associated with nausea and vomiting. CT abdomen pelvis indicated ischemic bowel. Patient's blood sugar was around 1200 on admission. Patient underwent surgical intervention by general surgery including exploratory laparoscopy, lysis of adhesions and right colon resection as well as small bowel resection. Infectious disease was consulted and kept patient on Zosyn. - Ischemic bowel - Status post right colon resection as well as a small bowel resection. - Morphine for pain PRN - Surgery following. - Continue Zosyn. WBC is 9.4K. Patient is also tolerating PO okay now. If he continues to tolerate PO, we can likely switch to PO abx. - Diabetes mellitus - Currently on Levemir 12 units daily at bedtime. Continue sliding scale insulin. - As he tolerates more by mouth nutrition, we may need to add pre-meal insulin. - Acute kidney injury - resolved. Creatinine on admission 3.2 and currently 0.77. - History of hepatitis B and C. - History of liver cirrhosis - No acute concerns. - Outpatient follow-up. - Transfer to the floor when bed available. Full code. Heparin subcutaneous. Padma Drew DO Feb 04, 2017 21:40
[2017-02-04] MEDS: ACETAMINOPHEN/HYDROcodone 325 MG/5 MG TAB PO PRN (23:33)
[2017-02-05] VITALS (9 sets, daily range): BP systolic 119–159; BP diastolic 75–91; PULSE 92–114; RESP 14–20; TEMP 96.9–98; O2SAT 95–100
[2017-02-05] MEDS: INSULIN ASPART SUPPLEMENTAL SCALE SQ SCH ×6 (02:00→20:46)
[2017-02-05] MEDS: MORPHINE SULFATE 8 MG/ML INJ IV PUSH PRN ×3 (02:40→12:56)
[2017-02-05] MEDS: KETOROLAC TROMETHAMINE 30 MG/ML (IVP) VIAL IV PUSH SCH ×2 (02:40→09:36)
[2017-02-05] MEDS: CHLORHEXIDINE GLUCONATE 2 % 1 PACK (2 CLOTHS) TOP SCH (04:00)
[2017-02-05] MEDS: SODIUM CHLOR 0.9% 1000 ML INJ 1,000 ML IV SCH ×2 (04:56→13:11)
[2017-02-05] MEDS: PIPERACIL-TAZO 4.5 GM PREMIX 100 ML IV SCH ×3 (06:14→18:02)
[2017-02-05] MEDS: ACETAMINOPHEN/HYDROcodone 325 MG/5 MG TAB PO PRN ×4 (06:15→20:37)
[2017-02-05] MEDS: HEPARIN SODIUM - SQ 10,000 UNITS/ML VIAL SQ SCH ×3 (06:15→20:44)
[2017-02-05] MEDS: INSULIN DETEMIR 100 UNITS/ML VIAL SQ SCH ×3 (08:04→22:48)
[2017-02-05] MEDS: DOCUSATE SODIUM 50 MG/SENNA 8.6 MG TAB PO SCH ×2 (08:05→20:44)
[2017-02-05] MEDS: PANTOPRAZOLE SOD 20 MG DELAYED RELEASE TAB PO SCH (08:05)
--- NOTE | 2017-02-05 13:11 | HHI.PR ---
cc: Theodore Jordan MD Subjective Subjective Notes DAILY PROGRESS NOTE FOR SURGICAL ATTENDING, DR. THEODORE JORDAN Resting in bed Feels like he over did it yesterday with walking and having some increased pain today but otherwise tolerating diet Objective Vitals/I&O Vital Signs Date Time Temp Pulse Resp B/P (MAP) Pulse Ox O2 Delivery O2 Flow Rate FiO2 02/05/17 12:00 96.9 104 20 145/88 (107) 100 02/05/17 08:41 21 02/05/17 07:00 Room Air 2.00 Labs Laboratory Tests Test 01/29/17 04:50 01/29/17 06:45 01/29/17 06:55 01/29/17 08:59 Prothrombin Time 12.5 SEC Prothromb Time International Ratio 1.1 RATIO Activated Partial Thromboplast Time 28.7 SEC Urine Color YELLOW Urine Turbidity CLEAR Urine pH 5.5 Urine Specific [place] 1.026 Urine Protein NEG mg/dL Urine Glucose (UA) 1000 OR GREATER mg/dL Urine Ketones NEG mg/dL Urine Occult Blood SMALL Urine Nitrite NEG Urine Bilirubin NEG Urine Leukocyte Esterase NEG Urine WBC 0-2 /hpf Urine Squamous Epithelial Cells 0-5 /hpf Urine Amorphous Sediment SMALL Microscopic Urinalysis Comment CULT NOT INDICATED Blood Urea Nitrogen 45 MG/DL Creatinine 3.20 MG/DL Random Glucose 1256 MG/DL Total Protein 8.2 GM/DL Albumin 3.2 GM/DL Calcium Level 8.2 MG/DL Alkaline Phosphatase 111 U/L Aspartate Amino Transf (AST/SGOT) 35 U/L Alanine Aminotransferase (ALT/SGPT) 58 U/L Total Bilirubin 2.2 MG/DL Sodium Level 113 MEQ/L Potassium Level 4.9 MEQ/L Chloride Level 73 MEQ/L Carbon Dioxide Level 23.3 MEQ/L Lipase 323 U/L Serum Osmolality 336 MOSM/KG B-Hydroxybutyrate 0.74 MMOL/L Venous Blood pH 7.34 Venous Blood Partial Pressure CO2 45 mmHg Venous Blood Partial Pressure O2 51 mmHg Venous Blood HCO3 23 mmol/L Venous Blood Oxygen Saturation 77 % Venous Blood Oxygen Content 14.7 Vol % Venous Blood Base Excess -1.6 mmol/L Nasal Screen MRSA (PCR) MRSA NOT DETECTED Test 01/29/17 11:50 01/30/17 05:00 01/31/17 04:40 02/03/17 05:32 Blood Gas Puncture Site VINH Blood Gas Patient Temperature 98.6 Blood Gas HCO3 19 mmol/L Blood Gas Base Excess -7.2 mmol/L Blood Gas Oxygen Saturation 96 % Arterial Blood pH 7.23 Arterial Blood Partial Pressure CO2 47 mmHg Arterial Blood Partial Pressure O2 272 mmHg Arterial Blood Oxygen Content 20.0 Vol % Arterial Blood Carboxyhemoglobin 2.9 % Arterial Blood Methemoglobin 1.0 % Blood Gas Hemoglobin 14.4 G/DL Oxygen Delivery Device O.R.GAS Blood Gas Inspired Oxygen 60 % Differential Total Cells Counted 100 Neutrophils % (Manual) 66 % Band Neutrophils % 15 % Lymphocytes % 15 % Monocytes % 4 % Neutrophils # (Manual) 10.0 TH/MM3 Platelet Estimate LOW Platelet Morphology Comment NORMAL Red Cell Morphology Comment NORMAL Blood Urea Nitrogen 24 MG/DL 12 MG/DL Creatinine 1.25 MG/DL 0.77 MG/DL Random Glucose 133 MG/DL 273 MG/DL Calcium Level 7.6 MG/DL 7.2 MG/DL Phosphorus Level 1.5 MG/DL 3.5 MG/DL Magnesium Level 2.1 MG/DL Sodium Level 142 MEQ/L 133 MEQ/L Potassium Level 3.3 MEQ/L 3.9 MEQ/L Chloride Level 107 MEQ/L 104 MEQ/L Carbon Dioxide Level 24.5 MEQ/L 22.5 MEQ/L Lactic Acid Level 1.0 mmol/L White Blood Count 9.4 TH/MM3 Red Blood Count 4.20 MIL/MM3 Hemoglobin 12.5 GM/DL Hematocrit 37.2 % Mean Corpuscular Volume 88.6 FL Mean Corpuscular Hemoglobin 29.9 PG Mean Corpuscular Hemoglobin Concent 33.8 % Red Cell Distribution Width 13.3 % Platelet Count 140 TH/MM3 Mean Platelet Volume 8.9 FL Neutrophils (%) (Auto) 66.2 % Lymphocytes (%) (Auto) 22.8 % Monocytes (%) (Auto) 9.9 % Eosinophils (%) (Auto) 0.8 % Basophils (%) (Auto) 0.3 % Neutrophils # (Auto) 6.2 TH/MM3 Lymphocytes # (Auto) 2.1 TH/MM3 Monocytes # (Auto) 0.9 TH/MM3 Eosinophils # (Auto) 0.1 TH/MM3 Basophils # (Auto) 0.0 TH/MM3 CBC Comment DIFF FINAL Differential Comment Total Protein 5.3 GM/DL Anion Gap 7 MEQ/L Estimat Glomerular Filtration Rate 101 ML/MIN Protein Corrected Calcium 8.2 MG/DL Radiology Last Impressions Abdomen X-Ray 02/01/17 0000 Signed Impressions: Service Date/Time: Wednesday, February 01, 2017 11:14 - CONCLUSION: 1. Air lucency in the upper abdomen concerning for possible free intraperitoneal air. 2. NG tube looped in the stomach. Attention been made to contact the surgical team. Vishal Brewer MD Chest X-Ray 01/29/17 0000 Signed Impressions: Service Date/Time: Sunday, January 29, 2017 13:21 - CONCLUSION: 1. Right internal jugular central line has its tip in the superior vena cava. No pneumothorax is noted. 2. No acute cardiopulmonary disease. Michael Philip MD Abdomen/Pelvis CT 01/29/17 0000 Signed Impressions: Service Date/Time: Sunday, January 29, 2017 06:37 - CONCLUSION: 1. Suspected ischemic bowel process involving the terminal ileum and cecum which is associated with portal gas in the liver. 2. No evidence of organized abscess. 3. Mild hydronephrosis and distended urinary bladder. Kelby Laurent MD Cardiovascular: Regular Lungs: Clear Abdomen: Other (midline incision with cliff in place; no drainage; JEVON; abdomen soft; minimally tender ) Extremities: No edema A/P Problem List: (1) Status post small bowel resection ICD Codes: Z90.49 - Acquired absence of other specified parts of digestive tract Status: Acute (2) Ischemia, bowel ICD Codes: K55.9 - Vascular disorder of intestine, unspecified Status: Resolved (3) Abdominal pain ICD Codes: R10.9 - Unspecified abdominal pain Status: Resolved (4) Ischemic necrosis of large intestine ICD Codes: K55.049 - Acute infarction of large intestine, extent unspecified Status: Resolved (5) Diabetes mellitus with hyperglycemia ICD Codes: E11.65 - Type 2 diabetes mellitus with hyperglycemia Status: Acute (6) Chronic obstructive pulmonary disease ICD Codes: J44.9 - Chronic obstructive pulmonary disease Status: Chronic (7) Chronic hepatitis C virus infection ICD Codes: B18.2 - Chronic viral hepatitis C Status: Chronic (8) Diabetic neuropathy ICD Codes: E11.40 - Diabetic neuropathy Status: Chronic (9) Hyponatremia ICD Codes: E87.1 - Hypo-osmolality and hyponatremia Status: Acute (10) Cirrhosis of liver ICD Codes: K74.60 - Hepatic cirrhosis Status: Chronic (11) COPD (chronic obstructive pulmonary disease) ICD Codes: J44.9 - Chronic obstructive pulmonary disease, unspecified Status: Acute (12) History of DVT (deep vein thrombosis) ICD Codes: Z86.718 - History of deep venous thrombosis Status: Chronic (13) History of major abdominal surgery ICD Codes: Z98.890 - Other specified postprocedural states Status: Chronic (14) Bladder cancer ICD Codes: C67.9 - Malignant neoplasm of bladder, unspecified Status: Chronic Assessment and Plan 66 year old male with ischemic bowel -POD5 Anastomosis from small bowel to transverse colon for resection of ischemic bowel -Pain control -Regular diet -Glucose control -OOB as tolerated -IS Attending Statement NOTE FOR SURGICAL ATTENDING, DR. THEODORE JORDAN I agree with above assessment and plan. The exam, history, and the medical decision-making described in the above note were completed with the assistance of the mid-level provider. I reviewed and agree with the findings presented. I attest that I had a [id number] encounter with the patient on the same day, and personally performed and documented my assessment and findings in the medical record. Continues to improve on a daily basis Will decrease IV fluids The following services were provided during this hospital visit: Chart data review, vital sign assessments/reviewing monitor data Review of consultations notes if present. Medication orders/review and/or management Ordering and/or reviewing lab tests Ordering and/or interpreting/reviewing x-rays and/or diagnostic studies Care of the patient and discussion of the patient with the care team Documentation time To help prompt me to consider important information that might be impacting today's encounter and assessment, information from prior notes written by myself or my colleagues may have been "brought forward/copy and pasted" into today's note. Problem Qualifiers (1) Abdominal pain: Qualified Codes: R10.84 - Generalized abdominal pain Mary Deluna Feb 05, 2017 13:11 Theodore Jrodan MD Feb 05, 2017 16:26
--- NOTE | 2017-02-05 13:20 | HHI.PR ---
Subjective Remarks Follow-up for ischemic bowel, diabetes mellitus. Patient is currently doing well. Sitting in his chair. He requests pain medication adjustment. No fever or chills. Objective Vitals Vital Signs Date Time Temp Pulse Resp B/P (MAP) Pulse Ox O2 Delivery O2 Flow Rate FiO2 02/05/17 12:00 96.9 104 20 145/88 (107) 100 02/05/17 08:41 21 02/05/17 08:04 24 02/05/17 08:00 97.9 92 14 139/89 (106) 96 02/05/17 08:00 99 02/05/17 07:00 96 Room Air 2.00 21 02/05/17 06:00 96 02/05/17 04:00 114 02/05/17 04:00 96 15 02/05/17 03:40 18 02/05/17 02:45 18 02/05/17 02:00 96 02/05/17 00:00 98.0 114 15 119/80 (93) 02/05/17 00:00 114 02/04/17 22:00 104 02/04/17 21:10 98 02/04/17 20:00 110 02/04/17 20:00 98.0 110 15 135/85 (102) 02/04/17 19:00 96 Room Air 02/04/17 18:00 109 02/04/17 16:00 97.8 104 14 120/60 (80) 98 02/04/17 16:00 104 02/04/17 14:00 103 I/O 02/04/17 02/04/17 02/04/17 02/05/17 02/05/17 02/05/17 07:00 15:00 23:00 07:00 15:00 23:00 Intake Total 240 ml 383 ml 880 ml 400 ml Output Total 3 ml 300 ml 500 ml Balance 237 ml 383 ml 580 ml -100 ml Intake Oral 240 ml 780 ml 400 ml IV Total 383 ml 100 ml Output Urine Total 300 ml 500 ml Stool Total 3 ml # Voids 3 2 # Bowel Movements 2 0 Result Diagram: 02/03/17 0532 02/03/17 0532 Imaging Last Impressions Abdomen X-Ray 02/01/17 0000 Signed Impressions: Service Date/Time: Wednesday, February 01, 2017 11:14 - CONCLUSION: 1. Air lucency in the upper abdomen concerning for possible free intraperitoneal air. 2. NG tube looped in the stomach. Attention been made to contact the surgical team. Vihsal Brewer MD Chest X-Ray 01/29/17 0000 Signed Impressions: Service Date/Time: Sunday, January 29, 2017 13:21 - CONCLUSION: 1. Right internal jugular central line has its tip in the superior vena cava. No pneumothorax is noted. 2. No acute cardiopulmonary disease. Michael Philip MD Abdomen/Pelvis CT 01/29/17 0000 Signed Impressions: Service Date/Time: Sunday, January 29, 2017 06:37 - CONCLUSION: 1. Suspected ischemic bowel process involving the terminal ileum and cecum which is associated with portal gas in the liver. 2. No evidence of organized abscess. 3. Mild hydronephrosis and distended urinary bladder. Kelby Laurent MD Objective Remarks GENERAL: Alert, oriented 3, NAD. SKIN: Warm and dry. HEAD: Normocephalic. EYES: No scleral icterus. No injection or drainage. NECK: Supple, trachea midline. No JVD or lymphadenopathy. CARDIOVASCULAR: Regular rate and rhythm without murmurs, gallops, or rubs. RESPIRATORY: Breath sounds equal bilaterally. No accessory muscle use. GASTROINTESTINAL: Abdomen soft, nondistended. MUSCULOSKELETAL: No cyanosis, or edema. Has some abdominal pain. BACK: Nontender without obvious deformity. No CVA tenderness. Procedures 01/29/2017 PROCEDURE 1. Exploratory laparotomy, lysis of adhesions. 2. Right colon resection 3. small bowel resection about the 20 cm distal ileum. 4. Application of temporary abdominal wound closure device. 01/31/2017 PROCEDURE 1. Removal of temporary abdominal closure device. 2. Abdominal washout. 3. Repositioning of NG tube to allow adequate drainage of the abdominal gastric contents. 4. Retrograde emptying of entirety of the small bowel into the stomach for decompression. 5. Resection of distal terminal ileum to obtain clear margins for pathology report to completely normal-looking peristaltic small bowel. 6. Anastomosis of ileum to proximal transverse colon in a [id number] functional end-to-end anastomosis. 7. Abdominal wound closure. A/P Problem List: (1) Acute intestinal ischemic syndrome ICD Code: K55.059 - Acute (reversible) ischemia of intestine, part and extent unspecified (2) Diabetes ICD Code: E11.9 - Diabetes mellitus Status: Acute Assessment and Plan Mr. Parks is a pleasant 66-year-old male with a history of liver cirrhosis, bladder cancer, diabetes mellitus who presented to the hospital on 01/29/2017 with severe abdominal pain associated with nausea and vomiting. CT abdomen pelvis indicated ischemic bowel. Patient's blood sugar was around 1200 on admission. Patient underwent surgical intervention by general surgery including exploratory laparoscopy, lysis of adhesions and right colon resection as well as small bowel resection. Infectious disease was consulted and kept patient on Zosyn. - Ischemic bowel - Status post right colon resection as well as a small bowel resection. -[place] for pain, will change morphine to Dilaudid IV for breakthrough pain. - Surgery following. - Continue Zosyn. WBC is 9.4K. Patient is also tolerating PO okay now. If he continues to tolerate PO, we can likely switch to PO abx. - Diabetes mellitus - Currently on Levemir 12 units daily at bedtime. Continue sliding scale insulin. - As he tolerates more by mouth nutrition, we may need to add pre-meal insulin. - Acute kidney injury - resolved. Creatinine on admission 3.2 and currently 0.77. - History of hepatitis B and C. - History of liver cirrhosis - No acute concerns. - Outpatient follow-up. Full code. Heparin subcutaneous. Padma Drew DO Feb 05, 2017 1:20 pm
[2017-02-05] MEDS: HYDROmorphone HCL PF 1 MG/ML VIAL IV PUSH PRN ×2 (18:01→22:46)
[2017-02-06] VITALS: BP 182/96; PULSE 112; RESP 20; TEMP 96.5; O2SAT 100
[2017-02-06] MEDS: PIPERACIL-TAZO 4.5 GM PREMIX 100 ML IV SCH ×4 (00:29→17:45)
[2017-02-06] MEDS: ACETAMINOPHEN/HYDROcodone 325 MG/5 MG TAB PO PRN (00:29)
[2017-02-06] MEDS: HYDROmorphone HCL 2 MG TAB PO PRN ×4 (01:44→20:39)
[2017-02-06] MEDS ORDERED: ENALAPRILAT 2.5 MG/2 ML VIAL IV PUSH PRN (01:45)
[2017-02-06] MEDS: INSULIN ASPART SUPPLEMENTAL SCALE SQ SCH ×6 (02:00→21:47)
[2017-02-06] MEDS: HYDROmorphone HCL PF 1 MG/ML VIAL IV PUSH PRN ×5 (03:40→21:47)
[2017-02-06 03:54] VITALS: BP 176/99; PULSE 109
[2017-02-06] MEDS: CHLORHEXIDINE GLUCONATE 2 % 1 PACK (2 CLOTHS) TOP SCH (04:00)
[2017-02-06] MEDS: HEPARIN SODIUM - SQ 10,000 UNITS/ML VIAL SQ SCH ×3 (06:05→20:43)
[2017-02-06] MEDS: PANTOPRAZOLE SOD 20 MG DELAYED RELEASE TAB PO SCH (07:29)
[2017-02-06] MEDS: DOCUSATE SODIUM 50 MG/SENNA 8.6 MG TAB PO SCH ×2 (07:29→20:40)
[2017-02-06] MEDS: INSULIN DETEMIR 100 UNITS/ML VIAL SQ SCH ×2 (07:31→21:47)
[2017-02-06 08:00] VITALS: BP 148/96; PULSE 97; RESP 18; TEMP 97.5; O2SAT 99
--- NOTE | 2017-02-06 10:09 | HHI.PR ---
Objective Vitals Vital Signs Date Time Temp Pulse Resp B/P (MAP) Pulse Ox O2 Delivery O2 Flow Rate FiO2 02/06/17 08:00 97.5 97 18 148/96 (113) 99 02/06/17 03:54 109 176/99 (124) 02/06/17 00:00 96.5 112 20 182/96 (124) 100 02/05/17 20:37 97 02/05/17 20:00 97.1 109 20 159/91 (113) 99 02/05/17 16:00 96.9 104 19 127/75 (92) 95 02/05/17 12:00 96.9 104 20 145/88 (107) 100 I/O 02/05/17 02/05/17 02/05/17 02/06/17 02/06/17 02/06/17 07:00 15:00 23:00 07:00 15:00 23:00 Intake Total 400 ml 2051 ml 600 ml Output Total 500 ml 900 ml 500 ml Balance -100 ml 1151 ml 100 ml Intake Oral 400 ml 800 ml IV Total 1251 ml 600 ml Output Urine Total 500 ml 900 ml 500 ml # Bowel Movements 0 0 Result Diagram: 02/03/1732 02/03/17 0532 Objective Remarks GENERAL: Alert, oriented 3, NAD. SKIN: Warm and dry. HEAD: Normocephalic. EYES: No scleral icterus. No injection or drainage. NECK: Supple, trachea midline. No JVD or lymphadenopathy. CARDIOVASCULAR: Regular rate and rhythm without murmurs, gallops, or rubs. RESPIRATORY: Breath sounds equal bilaterally. No accessory muscle use. GASTROINTESTINAL: Abdomen soft, nondistended. MUSCULOSKELETAL: No cyanosis, or edema. Has some abdominal pain. BACK: Nontender without obvious deformity. No CVA tenderness. Procedures 01/29/2017 PROCEDURE 1. Exploratory laparotomy, lysis of adhesions. 2. Right colon resection 3. small bowel resection about the 20 cm distal ileum. 4. Application of temporary abdominal wound closure device. 01/31/2017 PROCEDURE 1. Removal of temporary abdominal closure device. 2. Abdominal washout. 3. Repositioning of NG tube to allow adequate drainage of the abdominal gastric contents. 4. Retrograde emptying of entirety of the small bowel into the stomach for decompression. 5. Resection of distal terminal ileum to obtain clear margins for pathology report to completely normal-looking peristaltic small bowel. 6. Anastomosis of ileum to proximal transverse colon in a [id number] functional end-to-end anastomosis. 7. Abdominal wound closure. A/P Problem List: (1) Acute intestinal ischemic syndrome ICD Code: K55.059 - Acute (reversible) ischemia of intestine, part and extent unspecified (2) Diabetes ICD Code: E11.9 - Diabetes mellitus Status: Acute Assessment and Plan Mr. Parks is a pleasant 66-year-old male with a history of liver cirrhosis, bladder cancer, diabetes mellitus who presented to the hospital on 01/29/2017 with severe abdominal pain associated with nausea and vomiting. CT abdomen pelvis indicated ischemic bowel. Patient's blood sugar was around 1200 on admission. Patient underwent surgical intervention by general surgery including exploratory laparoscopy, lysis of adhesions and right colon resection as well as small bowel resection. Infectious disease was consulted and kept patient on Zosyn. - Ischemic bowel - Status post right colon resection as well as a small bowel resection. -[place] for pain, will change morphine to Dilaudid IV for breakthrough pain. - Surgery following. - Continue Zosyn. WBC is 9.4K. Patient is also tolerating PO okay now. If he continues to tolerate PO, we can likely switch to PO abx. - Diabetes mellitus - Currently on Levemir 12 units daily at bedtime. Continue sliding scale insulin. - As he tolerates more by mouth nutrition, we may need to add pre-meal insulin. - Acute kidney injury - resolved. Creatinine on admission 3.2 and currently 0.77. - History of hepatitis B and C. - History of liver cirrhosis - No acute concerns. - Outpatient follow-up. Full code. Heparin subcutaneous. Padma Drew DO Feb 06, 2017 10:09
--- NOTE | 2017-02-06 11:05 | HHI.PR ---
Subjective Remarks Follow-up for ischemic bowel, diabetes mellitus. Patient reports significant pain last night. No fever, chills. Had BM yesterday. Objective Vitals Vital Signs Date Time Temp Pulse Resp B/P (MAP) Pulse Ox O2 Delivery O2 Flow Rate FiO2 02/06/17 08:00 97.5 97 18 148/96 (113) 99 02/06/17 03:54 109 176/99 (124) 02/06/17 00:00 96.5 112 20 182/96 (124) 100 02/05/17 20:37 97 02/05/17 20:00 97.1 109 20 159/91 (113) 99 02/05/17 16:00 96.9 104 19 127/75 (92) 95 02/05/17 12:00 96.9 104 20 145/88 (107) 100 I/O 02/05/17 02/05/17 02/05/17 02/06/17 02/06/17 02/06/17 07:00 15:00 23:00 07:00 15:00 23:00 Intake Total 400 ml 2051 ml 600 ml Output Total 500 ml 900 ml 500 ml Balance -100 ml 1151 ml 100 ml Intake Oral 400 ml 800 ml IV Total 1251 ml 600 ml Output Urine Total 500 ml 900 ml 500 ml # Bowel Movements 0 0 Result Diagram: 02/03/17 0532 02/03/17 0532 Imaging Last Impressions Abdomen X-Ray 02/01/17 0000 Signed Impressions: Service Date/Time: Wednesday, February 01, 2017 11:14 - CONCLUSION: 1. Air lucency in the upper abdomen concerning for possible free intraperitoneal air. 2. NG tube looped in the stomach. Attention been made to contact the surgical team. Vishal Brewer MD Chest X-Ray 01/29/17 0000 Signed Impressions: Service Date/Time: Sunday, January 29, 2017 13:21 - CONCLUSION: 1. Right internal jugular central line has its tip in the superior vena cava. No pneumothorax is noted. 2. No acute cardiopulmonary disease. Michael Philip MD Abdomen/Pelvis CT 01/29/17 0000 Signed Impressions: Service Date/Time: Sunday, January 29, 2017 06:37 - CONCLUSION: 1. Suspected ischemic bowel process involving the terminal ileum and cecum which is associated with portal gas in the liver. 2. No evidence of organized abscess. 3. Mild hydronephrosis and distended urinary bladder. Kelby Laurent MD Objective Remarks GENERAL: Alert, oriented 3, NAD. SKIN: Warm and dry. HEAD: Normocephalic. EYES: No scleral icterus. No injection or drainage. NECK: Supple, trachea midline. No JVD or lymphadenopathy. CARDIOVASCULAR: Regular rate and rhythm without murmurs, gallops, or rubs. RESPIRATORY: Breath sounds equal bilaterally. No accessory muscle use. GASTROINTESTINAL: Abdomen soft, nondistended. MUSCULOSKELETAL: No cyanosis, or edema. Has some abdominal pain. BACK: Nontender without obvious deformity. No CVA tenderness. Procedures 01/29/2017 PROCEDURE 1. Exploratory laparotomy, lysis of adhesions. 2. Right colon resection 3. small bowel resection about the 20 cm distal ileum. 4. Application of temporary abdominal wound closure device. 01/31/2017 PROCEDURE 1. Removal of temporary abdominal closure device. 2. Abdominal washout. 3. Repositioning of NG tube to allow adequate drainage of the abdominal gastric contents. 4. Retrograde emptying of entirety of the small bowel into the stomach for decompression. 5. Resection of distal terminal ileum to obtain clear margins for pathology report to completely normal-looking peristaltic small bowel. 6. Anastomosis of ileum to proximal transverse colon in a [id number] functional end-to-end anastomosis. 7. Abdominal wound closure. A/P Problem List: (1) Acute intestinal ischemic syndrome ICD Code: K55.059 - Acute (reversible) ischemia of intestine, part and extent unspecified (2) Diabetes ICD Code: E11.9 - Diabetes mellitus Status: Acute Assessment and Plan Mr. Parks is a pleasant 66-year-old male with a history of liver cirrhosis, bladder cancer, diabetes mellitus who presented to the hospital on 01/29/2017 with severe abdominal pain associated with nausea and vomiting. CT abdomen pelvis indicated ischemic bowel. Patient's blood sugar was around 1200 on admission. Patient underwent surgical intervention by general surgery including exploratory laparoscopy, lysis of adhesions and right colon resection as well as small bowel resection. Infectious disease was consulted and kept patient on Zosyn. - Ischemic bowel - Status post right colon resection as well as a small bowel resection. - Dilaudid PO for pain, will change morphine to Dilaudid IV for breakthrough pain. - Increase Dilaudid PO from 1mg Q4hrs to 2mg Q4hrs. - Surgery following. - Continue Zosyn. WBC is 9.4K. Patient is also tolerating PO okay now. If he continues to tolerate PO, we can likely switch to PO abx. - Discussed with ID (Dr. Rowell) who indicated that she might stop Abx. - Diabetes mellitus - Currently on Levemir 12 units daily at bedtime. Continue sliding scale insulin. - As he tolerates more by mouth nutrition, we may need to add pre-meal insulin. - Acute kidney injury - resolved. Creatinine on admission 3.2 and currently 0.77. - History of hepatitis B and C. - History of liver cirrhosis - No acute concerns. - Outpatient follow-up. Full code. Heparin subcutaneous. Padma Drew DO Feb 06, 2017 10:15
[2017-02-06 12:00] VITALS: BP 170/93; PULSE 115; RESP 17; TEMP 95.9; O2SAT 98
[2017-02-06] MEDS: LACTOBACILLUS ACIDOPHILUS TAB PO SCH ×2 (12:26→16:23)
[2017-02-06 16:00] VITALS: BP 167/99; PULSE 119; RESP 17; TEMP 97.6; O2SAT 99
--- NOTE | 2017-02-06 16:47 | HHI.PR ---
Subjective Subjective Notes DAILY PROGRESS NOTE FOR SURGICAL ATTENDING, DR. THEODORE JORDAN +BM Abdomen painful to palpation similar to exam yesterday Objective Vitals/I&O Vital Signs Date Time Temp Pulse Resp B/P (MAP) Pulse Ox O2 Delivery O2 Flow Rate FiO2 02/06/17 12:00 95.9 115 17 170/93 (118) 98 02/05/17 08:41 21 02/05/17 07:00 Room Air 2.00 Labs Date/Time Source Procedure Growth Status 01/29/17 06:50 Blood Peripheral Aerobic Blood Culture - Final NO GROWTH IN 5 DAYS Complete 01/29/17 06:50 Blood Peripheral Anaerobic Blood Culture - Final NO GROWTH IN 5 DAYS Complete Radiology Last Impressions Abdomen X-Ray 02/01/17 0000 Signed Impressions: Service Date/Time: Wednesday, February 01, 2017 11:14 - CONCLUSION: 1. Air lucency in the upper abdomen concerning for possible free intraperitoneal air. 2. NG tube looped in the stomach. Attention been made to contact the surgical team. Vishal Brewer MD Chest X-Ray 01/29/17 0000 Signed Impressions: Service Date/Time: Sunday, January 29, 2017 13:21 - CONCLUSION: 1. Right internal jugular central line has its tip in the superior vena cava. No pneumothorax is noted. 2. No acute cardiopulmonary disease. Michael Philip MD Abdomen/Pelvis CT 01/29/17 0000 Signed Impressions: Service Date/Time: Sunday, January 29, 2017 06:37 - CONCLUSION: 1. Suspected ischemic bowel process involving the terminal ileum and cecum which is associated with portal gas in the liver. 2. No evidence of organized abscess. 3. Mild hydronephrosis and distended urinary bladder. Kelby Laurent MD Cardiovascular: Regular Lungs: Clear Abdomen: Other (distended; painful to palpation similar to exam yesterday; midline incision with cliff ) Extremities: No edema A/P Problem List: (1) Status post small bowel resection ICD Codes: Z90.49 - Acquired absence of other specified parts of digestive tract Status: Acute (2) Ischemia, bowel ICD Codes: K55.9 - Vascular disorder of intestine, unspecified Status: Resolved (3) Abdominal pain ICD Codes: R10.9 - Unspecified abdominal pain Status: Resolved (4) Ischemic necrosis of large intestine ICD Codes: K55.049 - Acute infarction of large intestine, extent unspecified Status: Resolved (5) Diabetes mellitus with hyperglycemia ICD Codes: E11.65 - Type 2 diabetes mellitus with hyperglycemia Status: Acute (6) Chronic obstructive pulmonary disease ICD Codes: J44.9 - Chronic obstructive pulmonary disease Status: Chronic (7) Chronic hepatitis C virus infection ICD Codes: B18.2 - Chronic viral hepatitis C Status: Chronic (8) Diabetic neuropathy ICD Codes: E11.40 - Diabetic neuropathy Status: Chronic (9) Hyponatremia ICD Codes: E87.1 - Hypo-osmolality and hyponatremia Status: Acute (10) Cirrhosis of liver ICD Codes: K74.60 - Hepatic cirrhosis Status: Chronic (11) COPD (chronic obstructive pulmonary disease) ICD Codes: J44.9 - Chronic obstructive pulmonary disease, unspecified Status: Acute (12) History of DVT (deep vein thrombosis) ICD Codes: Z86.718 - History of deep venous thrombosis Status: Chronic (13) History of major abdominal surgery ICD Codes: Z98.890 - Other specified postprocedural states Status: Chronic (14) Bladder cancer ICD Codes: C67.9 - Malignant neoplasm of bladder, unspecified Status: Chronic Assessment and Plan 66 year old male with ischemic bowel -POD6 Anastomosis from small bowel to transverse colon for resection of ischemic bowel -Pain control -Regular diet -Glucose control -OOB as tolerated -IS -Labs in AM Attending Statement NOTE FOR SURGICAL ATTENDING, DR. THEODORE JORDAN I agree with above assessment and plan. The exam, history, and the medical decision-making described in the above note were completed with the assistance of the mid-level provider. I reviewed and agree with the findings presented. I attest that I had a [id number] encounter with the patient on the same day, and personally performed and documented my assessment and findings in the medical record. doing well having BM will need rehab The following services were provided during this hospital visit: Chart data review, vital sign assessments/reviewing monitor data Review of consultations notes if present. Medication orders/review and/or management Ordering and/or reviewing lab tests Ordering and/or interpreting/reviewing x-rays and/or diagnostic studies Care of the patient and discussion of the patient with the care team Documentation time To help prompt me to consider important information that might be impacting today's encounter and assessment, information from prior notes written by myself or my colleagues may have been "brought forward/copy and pasted" into today's note. Problem Qualifiers (1) Abdominal pain: Qualified Codes: R10.84 - Generalized abdominal pain Mary Deluna Feb 06, 2017 16:47 Theodore Jordan MD Feb 07, 2017 08:14
[2017-02-06 20:40] VITALS: BP 166/97; PULSE 119; RESP 20; TEMP 97.3; O2SAT 100
[2017-02-07] VITALS: BP 152/89; PULSE 118; RESP 22; TEMP 98.9; O2SAT 98
[2017-02-07] MEDS: PIPERACIL-TAZO 4.5 GM PREMIX 100 ML IV SCH ×4 (00:34→20:49)
[2017-02-07] MEDS: HYDROmorphone HCL PF 1 MG/ML VIAL IV PUSH PRN ×6 (01:41→21:51)
[2017-02-07] MEDS: INSULIN ASPART SUPPLEMENTAL SCALE SQ SCH ×6 (02:47→21:03)
[2017-02-07] MEDS: HYDROmorphone HCL 2 MG TAB PO PRN ×4 (02:48→20:44)
[2017-02-07] MEDS: CHLORHEXIDINE GLUCONATE 2 % 1 PACK (2 CLOTHS) TOP SCH (04:00)
[2017-02-07] MEDS: HEPARIN SODIUM - SQ 10,000 UNITS/ML VIAL SQ SCH ×3 (05:49→20:51)
[2017-02-07 07:21] LABS: AUTOMATED NEUTROPHIL # 10.5 TH/MM3 (1.8-7.7); BASOPHIL # 0.1 TH/MM3 (0-0.2); BASOPHIL % 0.4 % (0.0-2.0); EOSINOPHIL # 0.1 TH/MM3 (0-0.4); EOSINOPHIL % 0.6 % (0.0-4.0); HEMATOCRIT 40.2 % (39.0-51.0); HEMO FLAGS DIFF FINAL; LYMPH % 13.4 % (9.0-44.0); LYMPHOCYTE # 1.9 TH/MM3 (1.0-4.8); MEAN CELL VOLUME 87.7 FL (80.0-100.0); MEAN CORPUSCULAR HEMOGLOBIN 29.1 PG (27.0-34.0); MEAN CORPUSCULAR HGB CONC 33.1 % (32.0-36.0); MONO % 10.9 % (0.0-8.0); NEUT % 74.7 % (16.0-70.0); PLATELET COUNT 170 TH/MM3 (150-450); RED BLOOD COUNT 4.58 MIL/MM3 (4.50-5.90); RED CELL DISTRIBUTION WIDTH 13.4 % (11.6-17.2)
[2017-02-07 07:47] LABS: ANION GAP 10 MEQ/L (5-15); AST (GOT) 30 U/L (15-37); BICARBONATE 22.7 MEQ/L (21.0-32.0); BLOOD UREA NITROGEN 7 MG/DL (7-18); CHLORIDE 103 MEQ/L (98-107); GLOMERULAR FILTRATION RATE 87 ML/MIN (>89); SODIUM (NA) 136 MEQ/L (136-145)
[2017-02-07 07:48] LABS: ALT (GPT) 25 U/L (12-78)
[2017-02-07 07:51] LABS: ALKALINE PHOSPHATASE 96 U/L (45-117); TOTAL BILIRUBIN ADULT 0.6 MG/DL (0.2-1.0)
[2017-02-07 08:00] VITALS: BP 147/91; PULSE 111; RESP 17; TEMP 97.3; O2SAT 99
[2017-02-07] MEDS: DOCUSATE SODIUM 50 MG/SENNA 8.6 MG TAB PO SCH ×2 (08:14→20:50)
[2017-02-07] MEDS: PANTOPRAZOLE SOD 20 MG DELAYED RELEASE TAB PO SCH (08:14)
[2017-02-07] MEDS: INSULIN DETEMIR 100 UNITS/ML VIAL SQ SCH ×2 (08:14→21:00)
[2017-02-07] MEDS: LACTOBACILLUS ACIDOPHILUS TAB PO SCH ×3 (08:14→17:58)
[2017-02-07] MEDS ORDERED: POTASSIUM CHLORIDE 10 MEQ CONTROLLED RELEASE TAB PO ONE (08:30)
--- NOTE | 2017-02-07 08:46 | HHI.PR ---
Subjective Remarks Follow-up for ischemic bowel, diabetes mellitus. Patient complains of some shortness of breath, no fever, chills. Still has abdominal pain. Due to leg swelling, Ultrasound was obtained and patient is undergoing lower ext US study at the time of this interview. Objective Vitals Vital Signs Date Time Temp Pulse Resp B/P (MAP) Pulse Ox O2 Delivery O2 Flow Rate FiO2 02/07/17 04:15 20 02/07/17 02:11 20 02/07/17 00:00 98.9 118 22 152/89 (110) 98 02/06/17 20:40 97.3 119 20 166/97 (120) 100 02/06/17 16:00 97.6 119 17 167/99 (121) 99 02/06/17 12:00 95.9 115 17 170/93 (118) 98 I/O 02/06/17 02/06/17 02/06/17 02/07/17 02/07/17 02/07/17 07:00 15:00 23:00 07:00 15:00 23:00 Intake Total 600 ml 100 ml 2109 ml 360 ml Output Total 500 ml 300 ml 700 ml Balance 100 ml 100 ml 1809 ml -340 ml Intake Oral 985 ml 360 ml IV Total 600 ml 100 ml 1124 ml Output Urine Total 500 ml 300 ml 700 ml # Voids 4 # Bowel Movements 4 0 Result Diagram: 02/07/17 0612 02/07/17 0612 Imaging Last Impressions Lower Extremity Ultrasound 02/07/17 0000 Signed Impressions: Service Date/Time: Tuesday, February 07, 2017 08:24 - CONCLUSION: Normal examination. No evidence of DVT Jamie Watters MD Abdomen X-Ray 02/01/17 0000 Signed Impressions: Service Date/Time: Wednesday, February 01, 2017 11:14 - CONCLUSION: 1. Air lucency in the upper abdomen concerning for possible free intraperitoneal air. 2. NG tube looped in the stomach. Attention been made to contact the surgical team. Vishal Brewer MD Chest X-Ray 01/29/17 0000 Signed Impressions: Service Date/Time: Sunday, January 29, 2017 13:21 - CONCLUSION: 1. Right internal jugular central line has its tip in the superior vena cava. No pneumothorax is noted. 2. No acute cardiopulmonary disease. Michael Philip MD Abdomen/Pelvis CT 01/29/17 0000 Signed Impressions: Service Date/Time: Sunday, January 29, 2017 06:37 - CONCLUSION: 1. Suspected ischemic bowel process involving the terminal ileum and cecum which is associated with portal gas in the liver. 2. No evidence of organized abscess. 3. Mild hydronephrosis and distended urinary bladder. Kelby Laurent MD Objective Remarks GENERAL: Alert, oriented 3, NAD. SKIN: Warm and dry. HEAD: Normocephalic. EYES: No scleral icterus. No injection or drainage. NECK: Supple, trachea midline. No JVD or lymphadenopathy. CARDIOVASCULAR: Regular rate and rhythm without murmurs, gallops, or rubs. RESPIRATORY: Breath sounds equal bilaterally. No accessory muscle use. GASTROINTESTINAL: Abdomen soft, nondistended. MUSCULOSKELETAL: No cyanosis, or edema. Has some abdominal pain. BACK: Nontender without obvious deformity. No CVA tenderness. Procedures 01/29/2017 PROCEDURE 1. Exploratory laparotomy, lysis of adhesions. 2. Right colon resection 3. small bowel resection about the 20 cm distal ileum. 4. Application of temporary abdominal wound closure device. 01/31/2017 PROCEDURE 1. Removal of temporary abdominal closure device. 2. Abdominal washout. 3. Repositioning of NG tube to allow adequate drainage of the abdominal gastric contents. 4. Retrograde emptying of entirety of the small bowel into the stomach for decompression. 5. Resection of distal terminal ileum to obtain clear margins for pathology report to completely normal-looking peristaltic small bowel. 6. Anastomosis of ileum to proximal transverse colon in a senf-[id number]-abvd functional end-to-end anastomosis. 7. Abdominal wound closure. A/P Problem List: (1) Acute intestinal ischemic syndrome ICD Code: K55.059 - Acute (reversible) ischemia of intestine, part and extent unspecified (2) Diabetes ICD Code: E11.9 - Diabetes mellitus Status: Acute Assessment and Plan Mr. Parks is a pleasant 66-year-old male with a history of liver cirrhosis, bladder cancer, diabetes mellitus who presented to the hospital on 01/29/2017 with severe abdominal pain associated with nausea and vomiting. CT abdomen pelvis indicated ischemic bowel. Patient's blood sugar was around 1200 on admission. Patient underwent surgical intervention by general surgery including exploratory laparoscopy, lysis of adhesions and right colon resection as well as small bowel resection. Infectious disease was consulted and kept patient on Zosyn. - Ischemic bowel - Status post right colon resection as well as a small bowel resection. - Dilaudid PO for pain, will change morphine to Dilaudid IV for breakthrough pain. - Increase Dilaudid PO from 1mg Q4hrs to 2mg Q4hrs. - Surgery following. - Continue Zosyn. WBC increased from 9.4 --> 14.0. - Will get UA, CXR. - Bilateral leg swelling - US negative for DVT. - Diabetes mellitus - Currently on Levemir 12 units daily at bedtime. Continue sliding scale insulin. - As he tolerates more by mouth nutrition, we may need to add pre-meal insulin. - Acute kidney injury - resolved. Creatinine on admission 3.2 and currently 0.77. - History of hepatitis B and C. - History of liver cirrhosis - No acute concerns. - Outpatient follow-up. Full code. Heparin subcutaneous. Discussed with Surgery. Padma Drew DO Feb 07, 2017 8:46 am
--- NOTE | 2017-02-07 09:07 | RADRPT ---
EXAM DATE/TIME: 02/07/2017 08:24 [facility] COMPARISON: No previous studies available for comparison. INDICATIONS : Bilateral leg swelling. MEDICAL HISTORY : Hypercholesterolemia. Chronic obstructive pulmonary disease. Deep venous thrombosis. Sciatica. Neurop athy. Hypertension. Chronic pancreatitis. Hepatitis C. Kidney stones. Rheumatoid arthritis. Diabetes. Esophogeal varices. Bladder cancer. SURGICAL HISTORY : Cholecystectomy. Appendectomy. Splenic repair. Left hand surgery. Right knee surgery. Vasectomy. Lumb ar surgery. ENCOUNTER: Subsequent ACUITY: 4 - 6 days PAIN SCORE: 5/10 LOCATION: Bilateral legs. TECHNIQUE: Venous ultrasound of the left and right leg was performed from the inguinal ligament to the proximal calf. Real-time, color Doppler and spectral tracing, compression and augmentation techniques were us ed. FINDINGS: RIGHT LEG: There is normal compressibility of the deep venous system from the inguinal region to the proximal ca lf. No echogenic clot is seen in the lumen of the common femoral, femoral, popliteal, and posterior tibial veins. There is a normal response of the venous system to proximal and distal augmentation an d respiration. LEFT LEG: There is normal compressibility of the deep venous system from the inguinal region to the proximal ca lf. No echogenic clot is seen in the lumen of the common femoral, femoral, popliteal, and posterior tibial veins. There is a normal response of the venous system to proximal and distal augmentation an d respiration. CONCLUSION: Normal examination. No evidence of DVT Jamie Watters MD on February 07, 2017 at 9:04 Board Certified Radiologist. This report was verified electronically.
--- NOTE | 2017-02-07 09:25 | HHI.PR ---
Subjective Subjective Notes DAILY PROGRESS NOTE FOR SURGICAL ATTENDING, DR. THEODORE JORDAN Tolerating diet Bilateral lower extremity edema Good bowel movements Abdominal discomfort cramps Objective Vitals/I&O Vital Signs Date Time Temp Pulse Resp B/P (MAP) Pulse Ox O2 Delivery O2 Flow Rate FiO2 02/07/17 08:00 97.3 111 17 147/91 (109) 99 02/05/17 08:41 21 02/05/17 07:00 Room Air 2.00 Labs Laboratory Tests Test 02/07/17 06:12 White Blood Count 14.0 Red Blood Count 4.58 Hemoglobin 13.3 Hematocrit 40.2 Mean Corpuscular Volume 87.7 Mean Corpuscular Hemoglobin 29.1 Mean Corpuscular Hemoglobin Concent 33.1 Red Cell Distribution Width 13.4 Platelet Count 170 Mean Platelet Volume 8.3 Neutrophils (%) (Auto) 74.7 Lymphocytes (%) (Auto) 13.4 Monocytes (%) (Auto) 10.9 Eosinophils (%) (Auto) 0.6 Basophils (%) (Auto) 0.4 Neutrophils # (Auto) 10.5 Lymphocytes # (Auto) 1.9 Monocytes # (Auto) 1.5 Eosinophils # (Auto) 0.1 Basophils # (Auto) 0.1 CBC Comment DIFF FINAL Differential Comment Blood Urea Nitrogen 7 Creatinine 0.88 Random Glucose 88 Total Protein 6.1 Albumin 1.9 Calcium Level 7.9 Alkaline Phosphatase 96 Aspartate Amino Transf (AST/SGOT) 30 Alanine Aminotransferase (ALT/SGPT) 25 Total Bilirubin 0.6 Sodium Level 136 Potassium Level 3.0 Chloride Level 103 Carbon Dioxide Level 22.7 Anion Gap 10 Estimat Glomerular Filtration Rate 87 Date/Time Source Procedure Growth Status 01/29/17 06:50 Blood Peripheral Aerobic Blood Culture - Final NO GROWTH IN 5 DAYS Complete 01/29/17 06:50 Blood Peripheral Anaerobic Blood Culture - Final NO GROWTH IN 5 DAYS Complete Radiology Last Impressions Lower Extremity Ultrasound 02/07/17 0000 Signed Impressions: Service Date/Time: Tuesday, February 07, 2017 08:24 - CONCLUSION: Normal examination. No evidence of DVT Jamie Watters MD Abdomen X-Ray 02/01/17 0000 Signed Impressions: Service Date/Time: Wednesday, February 01, 2017 11:14 - CONCLUSION: 1. Air lucency in the upper abdomen concerning for possible free intraperitoneal air. 2. NG tube looped in the stomach. Attention been made to contact the surgical team. Vishal Brewer MD Chest X-Ray 01/29/17 0000 Signed Impressions: Service Date/Time: Sunday, January 29, 2017 13:21 - CONCLUSION: 1. Right internal jugular central line has its tip in the superior vena cava. No pneumothorax is noted. 2. No acute cardiopulmonary disease. Michael Philip MD Abdomen/Pelvis CT 01/29/17 0000 Signed Impressions: Service Date/Time: Sunday, January 29, 2017 06:37 - CONCLUSION: 1. Suspected ischemic bowel process involving the terminal ileum and cecum which is associated with portal gas in the liver. 2. No evidence of organized abscess. 3. Mild hydronephrosis and distended urinary bladder. Kelby Laurent MD Cardiovascular: Regular Lungs: Clear Abdomen: Post-op tenderness Extremities: Perfused, Other (edema) Wound Wound : Wound Location: Abdomen Appearance: Clean & Dry Dressing: Dry A/P Problem List: (1) Status post small bowel resection ICD Codes: Z90.49 - Acquired absence of other specified parts of digestive tract Status: Acute (2) Ischemia, bowel ICD Codes: K55.9 - Vascular disorder of intestine, unspecified Status: Resolved (3) Abdominal pain ICD Codes: R10.9 - Unspecified abdominal pain Status: Resolved (4) Ischemic necrosis of large intestine ICD Codes: K55.049 - Acute infarction of large intestine, extent unspecified Status: Resolved (5) Diabetes mellitus with hyperglycemia ICD Codes: E11.65 - Type 2 diabetes mellitus with hyperglycemia Status: Acute (6) Chronic obstructive pulmonary disease ICD Codes: J44.9 - Chronic obstructive pulmonary disease Status: Chronic (7) Chronic hepatitis C virus infection ICD Codes: B18.2 - Chronic viral hepatitis C Status: Chronic (8) Diabetic neuropathy ICD Codes: E11.40 - Diabetic neuropathy Status: Chronic (9) Hyponatremia ICD Codes: E87.1 - Hypo-osmolality and hyponatremia Status: Acute (10) Cirrhosis of liver ICD Codes: K74.60 - Hepatic cirrhosis Status: Chronic (11) COPD (chronic obstructive pulmonary disease) ICD Codes: J44.9 - Chronic obstructive pulmonary disease, unspecified Status: Acute (12) History of DVT (deep vein thrombosis) ICD Codes: Z86.718 - History of deep venous thrombosis Status: Chronic (13) History of major abdominal surgery ICD Codes: Z98.890 - Other specified postprocedural states Status: Chronic (14) Bladder cancer ICD Codes: C67.9 - Malignant neoplasm of bladder, unspecified Status: Chronic Assessment and Plan 66 year old male with ischemic bowel -POD7 Anastomosis from small bowel to transverse colon for resection of ischemic bowel -Pain control -Regular diet -Glucose control -OOB as tolerated -IS Attending Statement NOTE FOR SURGICAL ATTENDING, DR. THEODORE JORDAN I attest that I had a [id number] encounter with the patient on the same day, and personally performed and documented my assessment and findings in the medical record. Patient had a negative ultrasound bilateral lower extremities Review case with Dr. Drew at bedside [employer] Continue antibiotics The following services were provided during this hospital visit: Chart data review, vital sign assessments/reviewing monitor data Review of consultations notes if present. Medication orders/review and/or management Ordering and/or reviewing lab tests Ordering and/or interpreting/reviewing x-rays and/or diagnostic studies Care of the patient and discussion of the patient with the care team Documentation time To help prompt me to consider important information that might be impacting today's encounter and assessment, information from prior notes written by myself or my colleagues may have been "brought forward/copy and pasted" into today's note. Problem Qualifiers (1) Abdominal pain: Qualified Codes: R10.84 - Generalized abdominal pain Theodore Jordan MD Feb 07, 2017 09:25
[2017-02-07 12:00] VITALS: BP 131/89; PULSE 120; RESP 18; TEMP 99.4; O2SAT 97
--- NOTE | 2017-02-07 14:18 | RADRPT ---
EXAM DATE/TIME: 02/07/2017 12:34 [facility] COMPARISON: CHEST SINGLE AP, January 29, 2017, 13:21. ABDOMEN KUB ONLY, February 01, 2017, 11:14. INDICATIONS : Dyspnea. MEDICAL HISTORY : Hypercholesterolemia. Chronic obstructive pulmonary disease. Deep venous SURGICAL HISTORY : Cholecystectomy. Appendectomy. Splenic repair. Left hand surgery. ENCOUNTER: Subsequent ACUITY: 2 days PAIN SCORE: 0/10 LOCATION: Bilateral chest FINDINGS: The heart is normal in size. There are small bilateral effusions. Diffuse interstitial changes within the pulmonary parenchyma. The exam which suggest CHF. The osseous structures are intact. CONCLUSION: 1. Possible CHF. Natalio Way MD on February 07, 2017 at 14:16 Board Certified Radiologist. This report was verified electronically.
[2017-02-07] MEDS: POTASSIUM CHLOR 20 MEQ PREMIX 100 ML IV SCH ×2 (15:41→16:00)
[2017-02-07 16:00] VITALS: BP 156/95; PULSE 116; RESP 17; TEMP 99.4; O2SAT 96
--- NOTE | 2017-02-07 16:14 | HHI.IDPN ---
Subjective Subjective Remarks afebrile WBC went up SOB today + BLE edema pt is having soft BMs Antibiotics zosyn Allergies: Coded Allergies: Iodinated Contrast- Oral and IV Dye (Unverified Allergy, Severe, rash/ flush, 01/29/17) butorphanol (Unverified Allergy, Severe, rash, 01/29/17) codeine (Unverified Allergy, Severe, breathing probs, 01/29/17) pentazocine (Unverified Allergy, Severe, breathing probs, 01/29/17) Objective . Vital Signs Date Time Temp Pulse Resp B/P (MAP) Pulse Ox O2 Delivery O2 Flow Rate FiO2 02/07/17 14:19 18 02/07/17 12:00 99.4 120 18 131/89 (103) 97 02/07/17 09:21 18 02/07/17 08:00 97.3 111 17 147/91 (109) 99 02/07/17 00:00 98.9 118 22 152/89 (110) 98 02/06/17 20:40 97.3 119 20 166/97 (120) 100 . Laboratory Tests Test 02/07/17 06:12 White Blood Count 14.0 TH/MM3 Red Blood Count 4.58 MIL/MM3 Hemoglobin 13.3 GM/DL Hematocrit 40.2 % Mean Corpuscular Volume 87.7 FL Mean Corpuscular Hemoglobin 29.1 PG Mean Corpuscular Hemoglobin Concent 33.1 % Red Cell Distribution Width 13.4 % Platelet Count 170 TH/MM3 Mean Platelet Volume 8.3 FL Neutrophils (%) (Auto) 74.7 % Lymphocytes (%) (Auto) 13.4 % Monocytes (%) (Auto) 10.9 % Eosinophils (%) (Auto) 0.6 % Basophils (%) (Auto) 0.4 % Neutrophils # (Auto) 10.5 TH/MM3 Lymphocytes # (Auto) 1.9 TH/MM3 Monocytes # (Auto) 1.5 TH/MM3 Eosinophils # (Auto) 0.1 TH/MM3 Basophils # (Auto) 0.1 TH/MM3 CBC Comment DIFF FINAL Differential Comment Laboratory Tests Test 02/07/17 06:12 Blood Urea Nitrogen 7 MG/DL Creatinine 0.88 MG/DL Random Glucose 88 MG/DL Total Protein 6.1 GM/DL Albumin 1.9 GM/DL Calcium Level 7.9 MG/DL Alkaline Phosphatase 96 U/L Aspartate Amino Transf (AST/SGOT) 30 U/L Alanine Aminotransferase (ALT/SGPT) 25 U/L Total Bilirubin 0.6 MG/DL Sodium Level 136 MEQ/L Potassium Level 3.0 MEQ/L Chloride Level 103 MEQ/L Carbon Dioxide Level 22.7 MEQ/L Anion Gap 10 MEQ/L Estimat Glomerular Filtration Rate 87 ML/MIN Magnesium Level 1.3 MG/DL Imaging Last Impressions Lower Extremity Ultrasound 02/07/17 0000 Signed Impressions: Service Date/Time: Tuesday, February 07, 2017 08:24 - CONCLUSION: Normal examination. No evidence of DVT Jamie Watters MD Chest X-Ray 02/07/17 0000 Signed Impressions: Service Date/Time: Tuesday, February 07, 2017 12:34 - CONCLUSION: 1. Possible CHF. Natalio Way MD Abdomen X-Ray 02/01/17 0000 Signed Impressions: Service Date/Time: Wednesday, February 01, 2017 11:14 - CONCLUSION: 1. Air lucency in the upper abdomen concerning for possible free intraperitoneal air. 2. NG tube looped in the stomach. Attention been made to contact the surgical team. Vishal Brewer MD Abdomen/Pelvis CT 01/29/17 0000 Signed Impressions: Service Date/Time: Sunday, January 29, 2017 06:37 - CONCLUSION: 1. Suspected ischemic bowel process involving the terminal ileum and cecum which is associated with portal gas in the liver. 2. No evidence of organized abscess. 3. Mild hydronephrosis and distended urinary bladder. Kelby Laurent MD Physical Exam CONSTITUTIONAL/GENERAL: This is an adequately nourished patient, in no apparent distress. TUBES/LINES/DRAINS: SKIN: No jaundice, rashes, or lesions. ly. Skin temperature appropriate. Not diaphoretic. EYES: Pupils equal and round and reactive. Extraocular motions intact. No scleral icterus. No injection or drainage. Fundi not examined. CARDIOVASCULAR: Regular rate and rhythm without murmurs, gallops, or rubs. No JVD. Peripheral pulses symmetric. RESPIRATORY/CHEST: Symmetric, unlabored respirations. Clear to auscultation. Breath sounds equal bilaterally. No wheezes, rales, or rhonchi. GASTROINTESTINAL: Abdomen with clean, dry incision , tender, quite distended. Bowel sounds hypoactive GENITOURINARY: Without palpable bladder distension. MUSCULOSKELETAL: Extremities without clubbing, cyanosis, 3+ soft pitting edema BLE NEUROLOGICAL: Awake and alert. Motor and sensory grossly within normal limits. Follows commands. clear speech. Moves all extremities. 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
[2017-02-07 20:00] VITALS: BP 168/99; PULSE 121; RESP 18; TEMP 98.8; O2SAT 97
[2017-02-08 00:24] VITALS: BP 154/90; PULSE 114; RESP 18; O2SAT 95
[2017-02-08] MEDS: PIPERACIL-TAZO 4.5 GM PREMIX 100 ML IV SCH ×4 (01:52→20:14)
[2017-02-08] MEDS: HYDROmorphone HCL PF 1 MG/ML VIAL IV PUSH PRN ×6 (01:55→22:41)
[2017-02-08] MEDS: INSULIN ASPART SUPPLEMENTAL SCALE SQ SCH ×6 (02:05→22:41)
[2017-02-08] MEDS: HYDROmorphone HCL 2 MG TAB PO PRN ×4 (03:07→21:41)
[2017-02-08] MEDS: CHLORHEXIDINE GLUCONATE 2 % 1 PACK (2 CLOTHS) TOP SCH (04:00)
[2017-02-08] MEDS: HEPARIN SODIUM - SQ 10,000 UNITS/ML VIAL SQ SCH ×3 (06:16→20:18)
--- NOTE | 2017-02-08 07:10 | HHI.PR ---
Subjective Remarks Follow-up for ischemic bowel, diabetes mellitus. Patient is currently resting in bed, on room air. Denies any chest pain, shortness of breath, fever or chills. However at times he gets short of breath and unable to speak in full sentences. Objective Vitals Vital Signs Date Time Temp Pulse Resp B/P (MAP) Pulse Ox O2 Delivery O2 Flow Rate FiO2 02/08/17 04:07 20 02/08/17 02:25 20 02/08/17 00:24 114 18 154/90 (111) 95 02/07/17 20:00 98.8 121 18 168/99 (122) 97 02/07/17 16:00 99.4 116 17 156/95 (115) 96 02/07/17 12:00 99.4 120 18 131/89 (103) 97 02/07/17 08:00 97.3 111 17 147/91 (109) 99 I/O 02/07/17 02/07/17 02/07/17 02/08/17 02/08/17 02/08/17 07:00 15:00 23:00 07:00 15:00 23:00 Intake Total 360 ml 800 ml Output Total 700 ml 550 ml 1000 ml Balance -340 ml 250 ml -1000 ml Intake Oral 360 ml 800 ml IV Total 0 ml Output Urine Total 700 ml 550 ml 1000 ml # Voids 5 # Bowel Movements 0 2 Result Diagram: 02/07/17 0612 02/07/17 0612 Imaging Last Impressions Lower Extremity Ultrasound 02/07/17 0000 Signed Impressions: Service Date/Time: Tuesday, February 07, 2017 08:24 - CONCLUSION: Normal examination. No evidence of DVT Jamie Watters MD Chest X-Ray 02/07/17 0000 Signed Impressions: Service Date/Time: Tuesday, February 07, 2017 12:34 - CONCLUSION: 1. Possible CHF. Natalio Way MD Abdomen X-Ray 02/01/17 0000 Signed Impressions: Service Date/Time: Wednesday, February 01, 2017 11:14 - CONCLUSION: 1. Air lucency in the upper abdomen concerning for possible free intraperitoneal air. 2. NG tube looped in the stomach. Attention been made to contact the surgical team. Vishal Brewer MD Abdomen/Pelvis CT 01/29/17 0000 Signed Impressions: Service Date/Time: Sunday, January 29, 2017 06:37 - CONCLUSION: 1. Suspected ischemic bowel process involving the terminal ileum and cecum which is associated with portal gas in the liver. 2. No evidence of organized abscess. 3. Mild hydronephrosis and distended urinary bladder. Kelby Laurent MD Objective Remarks GENERAL: Alert, oriented 3, NAD. SKIN: Warm and dry. HEAD: Normocephalic. EYES: No scleral icterus. No injection or drainage. NECK: Supple, trachea midline. No JVD or lymphadenopathy. CARDIOVASCULAR: Reg rhythm, tachycardic without murmurs, gallops, or rubs. RESPIRATORY: Breath sounds equal bilaterally. No accessory muscle use. GASTROINTESTINAL: Abdomen soft, nondistended. MUSCULOSKELETAL: No cyanosis. 1+ edema in bilateral ext. BACK: Nontender without obvious deformity. No CVA tenderness. Procedures 01/29/2017 PROCEDURE 1. Exploratory laparotomy, lysis of adhesions. 2. Right colon resection 3. small bowel resection about the 20 cm distal ileum. 4. Application of temporary abdominal wound closure device. 01/31/2017 PROCEDURE 1. Removal of temporary abdominal closure device. 2. Abdominal washout. 3. Repositioning of NG tube to allow adequate drainage of the abdominal gastric contents. 4. Retrograde emptying of entirety of the small bowel into the stomach for decompression. 5. Resection of distal terminal ileum to obtain clear margins for pathology report to completely normal-looking peristaltic small bowel. 6. Anastomosis of ileum to proximal transverse colon in a [id number] functional end-to-end anastomosis. 7. Abdominal wound closure. A/P Problem List: (1) Acute intestinal ischemic syndrome ICD Code: K55.059 - Acute (reversible) ischemia of intestine, part and extent unspecified (2) Diabetes ICD Code: E11.9 - Diabetes mellitus Status: Acute Assessment and Plan Mr. Parks is a pleasant 66-year-old male with a history of liver cirrhosis, bladder cancer, diabetes mellitus who presented to the hospital on 01/29/2017 with severe abdominal pain associated with nausea and vomiting. CT abdomen pelvis indicated ischemic bowel. Patient's blood sugar was around 1200 on admission. Patient underwent surgical intervention by general surgery including exploratory laparoscopy, lysis of adhesions and right colon resection as well as small bowel resection. Infectious disease was consulted and kept patient on Zosyn. - Ischemic bowel - Status post right colon resection as well as a small bowel resection. - Dilaudid PO for pain, will change morphine to Dilaudid IV for breakthrough pain. - Increase Dilaudid PO from 1mg Q4hrs to 2mg Q4hrs. - Surgery following. - Continue Zosyn. WBC increased from 9.4 --> 14.0 --> 14.6. - UA unremarkable, CXR reviewed by me on 02/08/2017 - shows pulmonary congestion samantha on the left side. - Probable congestive heart failure unknown type - Patient has no history of heart disease. - He does have bilateral leg swelling, negative for DVT. - CXR is also indicative for CHF. We will obtain BNP today as well as 2D Echo. - Lasix 40mg IV Once. Start metoprolol 25 mg Q12hrs. - Diabetes mellitus - Currently on Levemir 12 units daily at bedtime. Continue sliding scale insulin. - As he tolerates more by mouth nutrition, we may need to add pre-meal insulin. - Acute kidney injury - resolved. Creatinine on admission 3.2 and currently 0.77. - History of hepatitis B and C. - History of liver cirrhosis - No acute concerns. - Outpatient follow-up. Full code. Heparin subcutaneous. Padma Drew DO Feb 08, 2017 7:09 am
[2017-02-08 07:14] LABS: BICARBONATE 22.6 MEQ/L (21.0-32.0); POTASSIUM 3.5 MEQ/L (3.5-5.1)
[2017-02-08 07:30] LABS: CALCIUM-PROTEIN CORRECTED 8.1 MG/DL (8.5-10.1)
[2017-02-08 07:41] LABS: AUTOMATED NEUTROPHIL # 11.3 TH/MM3 (1.8-7.7); BASOPHIL % 0.3 % (0.0-2.0); EOSINOPHIL # 0.2 TH/MM3 (0-0.4); HEMATOCRIT 35.2 % (39.0-51.0); LYMPHOCYTE # 1.9 TH/MM3 (1.0-4.8); MEAN CELL VOLUME 88.4 FL (80.0-100.0); MEAN CORPUSCULAR HEMOGLOBIN 29.2 PG (27.0-34.0); MONO % 8.1 % (0.0-8.0); NEUT % 77.6 % (16.0-70.0); PLATELET COUNT 148 TH/MM3 (150-450); RED BLOOD COUNT 3.98 MIL/MM3 (4.50-5.90); RED CELL DISTRIBUTION WIDTH 13.6 % (11.6-17.2); WHITE BLOOD COUNT 14.6 TH/MM3 (4.0-11.0)
[2017-02-08 07:42] LABS: HEMO FLAGS AUTO DIFF
[2017-02-08 08:00] VITALS: BP 162/82; PULSE 93; RESP 18; TEMP 99.3; O2SAT 95
[2017-02-08] MEDS ORDERED: FUROSEMIDE 40 MG/4 ML VIAL IV PUSH ONE (08:15)
[2017-02-08] MEDS: METOPROLOL TARTRATE 25 MG TAB PO SCH ×2 (09:07→20:15)
[2017-02-08] MEDS: DOCUSATE SODIUM 50 MG/SENNA 8.6 MG TAB PO SCH ×2 (09:07→20:15)
[2017-02-08] MEDS: LACTOBACILLUS ACIDOPHILUS TAB PO SCH ×3 (09:07→17:38)
[2017-02-08] MEDS: PANTOPRAZOLE SOD 20 MG DELAYED RELEASE TAB PO SCH (09:07)
[2017-02-08] MEDS: INSULIN DETEMIR 100 UNITS/ML VIAL SQ SCH ×2 (09:09→20:17)
[2017-02-08 11:44] LABS: SCAN/DIFF AUTO DIFF CONFIRMED
[2017-02-08 12:00] VITALS: BP 134/85; PULSE 84; RESP 18; TEMP 95; O2SAT 99
--- NOTE | 2017-02-08 15:11 | HHI.PR ---
Addendum to Inpatient Note Additional Information Full note to follow Pt seen today around 1330 co RLQ/LLQ pain solid BMs non compliant with ambulation abs tender, distended Moriah Rowell MD Feb 08, 2017 15:10
--- NOTE | 2017-02-08 15:18 | ECHRPT ---
Indication: Heart failure, unspecified CONCLUSIONS The left ventricular systolic function is moderately reduced with an estimated ejection fraction in the range of 40-45% (visually near 45%), mild global hypokinesis Normal left ventricular size. Mild mitral valve regurgitation. BP: / HR: Rhythm: MEASUREMENTS (Male / Female) Normal Values Technical Quality:Fair 2D ECHO LV Diastolic Diameter PLAX 5.2 cm 4.2 - 5.9 / 3.9 - 5.3 cm LV Systolic Diameter PLAX 4.4 cm IVS Diastolic Thickness 1.4 cm 0.6 - 1.0 / 0.6 - 0.9 cm LVPW Diastolic Thickness 0.8 cm 0.6 - 1.0 / 0.6 - 0.9 cm LV Relative Wall Thickness 0.4 RV Internal Dim ED PLAX 2.9 cm M-MODE Aortic Root Diameter MM 4.3 cm LA Systolic Diameter MM 3.7 cm LA Ao Ratio MM 0.9 AV Cusp Separation MM 2.5 cm DOPPLER Mitral E Point Velocity 43.4 cm/s Mitral A Point Velocity 77.0 cm/s Mitral E to A Ratio 0.6 LV E' Lateral Velocity 6.7 cm/s Mitral E to LV E' Lateral Ratio 6.4 LV E' Septal Velocity 6.7 cm/s Mitral E to LV E' Septal Ratio 6.4 FINDINGS LEFT VENTRICLE The left ventricular systolic function is moderately reduced with an estimated ejection fraction in the range of 40-45%. Doppler parameters are consistent with impaired left ventricular relaxtion (grade 1 diastolic dysfun ction). Normal left ventricular size. RIGHT VENTRICLE Normal right ventricular size and systolic function. LEFT ATRIUM The left atrial size is normal. RIGHT ATRIUM The right atrial size is normal. ATRIAL SEPTUM Normal atrial septal thickness without atrial level shunting by limited color doppler interrogation. AORTA The aortic root and proximal ascending aorta are normal in size on limited imaging. MITRAL VALVE Structurally normal mitral valve. Mild mitral valve regurgitation. AORTIC VALVE Trileaflet aortic valve. No aortic valve regurgitation. No aortic valve stenosis. TRICUSPID VALVE Structurally normal tricuspid valve. There is mild tricuspid valve regurgitation. PULMONARY VALVE The pulmonary valve is not well visualized. VESSELS The inferior vena cava is normal in size. PERICARDIUM No pericardial effusion. Shlio Paulino MD (Electronically Signed) Final Date:08 February 2017 15:16
[2017-02-08 16:00] VITALS: BP 155/94; PULSE 82; RESP 19; TEMP 95.6; O2SAT 97
[2017-02-08] MEDS ORDERED: SIMETHICONE 125 MG CHEWABLE TAB PO ONE (16:00)
[2017-02-08 20:16] VITALS: BP 157/90; PULSE 88; RESP 17; TEMP 96.8; O2SAT 95
[2017-02-08] MEDS: SIMETHICONE 125 MG CHEWABLE TAB PO SCH (20:16)
--- NOTE | 2017-02-08 21:58 | HHI.PR ---
Subjective Subjective Notes DAILY PROGRESS NOTE FOR SURGICAL ATTENDING, DR. THEODORE JORDAN sitting up in bed ready to start PT had BM Jose DIet mild abd discomfort ? chronic Objective Vitals/I&O Vital Signs Date Time Temp Pulse Resp B/P (MAP) Pulse Ox O2 Delivery O2 Flow Rate FiO2 02/08/17 20:16 96.8 88 17 157/90 (112) 95 02/05/17 08:41 21 02/05/17 07:00 Room Air 2.00 Labs Laboratory Tests Test 02/08/17 05:47 02/08/17 11:32 White Blood Count 14.6 Red Blood Count 3.98 Hemoglobin 11.6 Hematocrit 35.2 Mean Corpuscular Volume 88.4 Mean Corpuscular Hemoglobin 29.2 Mean Corpuscular Hemoglobin Concent 33.0 Red Cell Distribution Width 13.6 Platelet Count 148 Mean Platelet Volume 8.1 Neutrophils (%) (Auto) 77.6 Lymphocytes (%) (Auto) 13.0 Monocytes (%) (Auto) 8.1 Eosinophils (%) (Auto) 1.0 Basophils (%) (Auto) 0.3 Neutrophils # (Auto) 11.3 Lymphocytes # (Auto) 1.9 Monocytes # (Auto) 1.2 Eosinophils # (Auto) 0.2 Basophils # (Auto) 0.0 CBC Comment AUTO DIFF Differential Comment AUTO DIFF CONFIRMED Blood Urea Nitrogen 7 Creatinine 0.89 Random Glucose 117 Total Protein 5.5 Calcium Level 7.2 Sodium Level 137 Potassium Level 3.5 Chloride Level 106 Carbon Dioxide Level 22.6 Anion Gap 8 Estimat Glomerular Filtration Rate 86 Protein Corrected Calcium 8.1 B-Type Natriuretic Peptide 70 Lactic Acid Level 3.6 Date/Time Source Procedure Growth Status 01/29/17 06:50 Blood Peripheral Aerobic Blood Culture - Final NO GROWTH IN 5 DAYS Complete 01/29/17 06:50 Blood Peripheral Anaerobic Blood Culture - Final NO GROWTH IN 5 DAYS Complete Radiology Last Impressions Lower Extremity Ultrasound 02/07/17 0000 Signed Impressions: Service Date/Time: Tuesday, February 07, 2017 08:24 - CONCLUSION: Normal examination. No evidence of DVT Jamie Watters MD Abdomen X-Ray 02/01/17 0000 Signed Impressions: Service Date/Time: Wednesday, February 01, 2017 11:14 - CONCLUSION: 1. Air lucency in the upper abdomen concerning for possible free intraperitoneal air. 2. NG tube looped in the stomach. Attention been made to contact the surgical team. Vishal Brewer MD Chest X-Ray 01/29/17 0000 Signed Impressions: Service Date/Time: Sunday, January 29, 2017 13:21 - CONCLUSION: 1. Right internal jugular central line has its tip in the superior vena cava. No pneumothorax is noted. 2. No acute cardiopulmonary disease. Michael Philip MD Abdomen/Pelvis CT 01/29/17 0000 Signed Impressions: Service Date/Time: Sunday, January 29, 2017 06:37 - CONCLUSION: 1. Suspected ischemic bowel process involving the terminal ileum and cecum which is associated with portal gas in the liver. 2. No evidence of organized abscess. 3. Mild hydronephrosis and distended urinary bladder. Kelby Laurent MD Cardiovascular: Regular Lungs: Clear Abdomen: Non-distended, Other, Post-op tenderness, BS normal Extremities: Perfused A/P Problem List: (1) Status post small bowel resection ICD Codes: Z90.49 - Acquired absence of other specified parts of digestive tract Status: Acute (2) Ischemic necrosis of large intestine ICD Codes: K55.049 - Acute infarction of large intestine, extent unspecified Status: Resolved (3) Diabetes mellitus with hyperglycemia ICD Codes: E11.65 - Type 2 diabetes mellitus with hyperglycemia Status: Acute (4) Chronic obstructive pulmonary disease ICD Codes: J44.9 - Chronic obstructive pulmonary disease Status: Chronic (5) Chronic hepatitis C virus infection ICD Codes: B18.2 - Chronic viral hepatitis C Status: Chronic (6) Diabetic neuropathy ICD Codes: E11.40 - Diabetic neuropathy Status: Chronic (7) Hyponatremia ICD Codes: E87.1 - Hypo-osmolality and hyponatremia Status: Acute (8) Cirrhosis of liver ICD Codes: K74.60 - Hepatic cirrhosis Status: Chronic (9) COPD (chronic obstructive pulmonary disease) ICD Codes: J44.9 - Chronic obstructive pulmonary disease, unspecified Status: Acute (10) History of DVT (deep vein thrombosis) ICD Codes: Z86.718 - History of deep venous thrombosis Status: Chronic (11) History of major abdominal surgery ICD Codes: Z98.890 - Other specified postprocedural states Status: Chronic (12) Bladder cancer ICD Codes: C67.9 - Malignant neoplasm of bladder, unspecified Status: Chronic (13) CHF (congestive heart failure) ICD Codes: I50.9 - Heart failure, unspecified Assessment and Plan 66 year old male with ischemic bowel -PO Anastomosis from small bowel to transverse colon for resection of ischemic bowel -Pain control -Regular diet -Glucose control -OOB as tolerated -IS Doing well with PT had some findings of CHF on echo and cxr Attending Statement NOTE FOR SURGICAL ATTENDING, DR. THEODORE JORDAN I attest that I had a [id number] encounter with the patient on the same day, and personally performed and documented my assessment and findings in the medical record. The following services were provided during this hospital visit: Chart data review, vital sign assessments/reviewing monitor data Review of consultations notes if present. Medication orders/review and/or management Ordering and/or reviewing lab tests Ordering and/or interpreting/reviewing x-rays and/or diagnostic studies Care of the patient and discussion of the patient with the care team Documentation time To help prompt me to consider important information that might be impacting today's encounter and assessment, information from prior notes written by myself or my colleagues may have been "brought forward/copy and pasted" into today's note. Theodore Jordan MD Feb 08, 2017 21:58
[2017-02-08] MEDS: SODIUM CHLORIDE 0.9% FLUSH 10 ML FLUSH IV FLUSH PRN (22:42)
--- NOTE | 2017-02-08 23:00 | HHI.IDPN ---
Subjective Subjective Remarks delayed entry Pt seen today around 1330 afebrile co RLQ/LLQ pain solid BMs non compliant with ambulation Antibiotics zosyn Allergies: Coded Allergies: Iodinated Contrast- Oral and IV Dye (Unverified Allergy, Severe, rash/ flush, 01/29/17) butorphanol (Unverified Allergy, Severe, rash, 01/29/17) codeine (Unverified Allergy, Severe, breathing probs, 01/29/17) pentazocine (Unverified Allergy, Severe, breathing probs, 01/29/17) Objective . Vital Signs Date Time Temp Pulse Resp B/P (MAP) Pulse Ox O2 Delivery O2 Flow Rate FiO2 02/08/17 20:16 96.8 88 17 157/90 (112) 95 02/08/17 16:00 95.6 82 19 155/94 (114) 97 02/08/17 12:00 95.0 84 18 134/85 (101) 99 02/08/17 08:00 99.3 93 18 162/82 (108) 95 02/08/17 06:46 18 02/08/17 04:07 20 02/08/17 00:24 114 18 154/90 (111) 95 02/08/17 02/08/17 02/09/17 15:00 23:00 07:00 Intake Total 900 ml Output Total 3500 ml Balance -2600 ml Intake Oral 900 ml Output Urine Total 3500 ml # Bowel Movements 1 . Laboratory Tests Test 02/07/17 06:12 02/08/17 05:47 White Blood Count 14.0 TH/MM3 14.6 TH/MM3 Red Blood Count 4.58 MIL/MM3 3.98 MIL/MM3 Hemoglobin 13.3 GM/DL 11.6 GM/DL Hematocrit 40.2 % 35.2 % Mean Corpuscular Volume 87.7 FL 88.4 FL Mean Corpuscular Hemoglobin 29.1 PG 29.2 PG Mean Corpuscular Hemoglobin Concent 33.1 % 33.0 % Red Cell Distribution Width 13.4 % 13.6 % Platelet Count 170 TH/MM3 148 TH/MM3 Mean Platelet Volume 8.3 FL 8.1 FL Neutrophils (%) (Auto) 74.7 % 77.6 % Lymphocytes (%) (Auto) 13.4 % 13.0 % Monocytes (%) (Auto) 10.9 % 8.1 % Eosinophils (%) (Auto) 0.6 % 1.0 % Basophils (%) (Auto) 0.4 % 0.3 % Neutrophils # (Auto) 10.5 TH/MM3 11.3 TH/MM3 Lymphocytes # (Auto) 1.9 TH/MM3 1.9 TH/MM3 Monocytes # (Auto) 1.5 TH/MM3 1.2 TH/MM3 Eosinophils # (Auto) 0.1 TH/MM3 0.2 TH/MM3 Basophils # (Auto) 0.1 TH/MM3 0.0 TH/MM3 CBC Comment DIFF FINAL AUTO DIFF Differential Comment AUTO DIFF CONFIRMED Laboratory Tests Test 02/07/17 06:12 02/08/17 05:47 02/08/17 11:32 Blood Urea Nitrogen 7 MG/DL 7 MG/DL Creatinine 0.88 MG/DL 0.89 MG/DL Random Glucose 88 MG/DL 117 MG/DL Total Protein 6.1 GM/DL 5.5 GM/DL Albumin 1.9 GM/DL Calcium Level 7.9 MG/DL 7.2 MG/DL Alkaline Phosphatase 96 U/L Aspartate Amino Transf (AST/SGOT) 30 U/L Alanine Aminotransferase (ALT/SGPT) 25 U/L Total Bilirubin 0.6 MG/DL Sodium Level 136 MEQ/L 137 MEQ/L Potassium Level 3.0 MEQ/L 3.5 MEQ/L Chloride Level 103 MEQ/L 106 MEQ/L Carbon Dioxide Level 22.7 MEQ/L 22.6 MEQ/L Anion Gap 10 MEQ/L 8 MEQ/L Estimat Glomerular Filtration Rate 87 ML/MIN 86 ML/MIN Magnesium Level 1.3 MG/DL Protein Corrected Calcium 8.1 MG/DL B-Type Natriuretic Peptide 70 PG/ML Lactic Acid Level 3.6 mmol/L Imaging Last Impressions Lower Extremity Ultrasound 02/07/17 0000 Signed Impressions: Service Date/Time: Tuesday, February 07, 2017 08:24 - CONCLUSION: Normal examination. No evidence of DVT Jamie Watters MD Chest X-Ray 02/07/17 0000 Signed Impressions: Service Date/Time: Tuesday, February 07, 2017 12:34 - CONCLUSION: 1. Possible CHF. Natalio Way MD Abdomen X-Ray 02/01/17 0000 Signed Impressions: Service Date/Time: Wednesday, February 01, 2017 11:14 - CONCLUSION: 1. Air lucency in the upper abdomen concerning for possible free intraperitoneal air. 2. NG tube looped in the stomach. Attention been made to contact the surgical team. Vishal Brewer MD Abdomen/Pelvis CT 01/29/17 0000 Signed Impressions: Service Date/Time: Sunday, January 29, 2017 06:37 - CONCLUSION: 1. Suspected ischemic bowel process involving the terminal ileum and cecum which is associated with portal gas in the liver. 2. No evidence of organized abscess. 3. Mild hydronephrosis and distended urinary bladder. Kelby Laurent MD Physical Exam CONSTITUTIONAL/GENERAL: This is an adequately nourished patient, in no apparent distress. TUBES/LINES/DRAINS: SKIN: No jaundice, rashes, or lesions. ly. Skin temperature appropriate. Not diaphoretic. EYES: Pupils equal and round and reactive. Extraocular motions intact. No scleral icterus. No injection or drainage. Fundi not examined. CARDIOVASCULAR: Regular rate and rhythm without murmurs, gallops, or rubs. No JVD. Peripheral pulses symmetric. RESPIRATORY/CHEST: Symmetric, unlabored respirations. Clear to auscultation. Breath sounds equal bilaterally. No wheezes, rales, or rhonchi. GASTROINTESTINAL: Abdomen with clean, dry incision , tender, quite distended. Bowel sounds hypoactive abd tender, distended MUSCULOSKELETAL: Extremities without clubbing, cyanosis, 3+ soft pitting edema BLE NEUROLOGICAL: Awake and alert. Motor and sensory grossly within normal limits. Follows commands. clear speech. Moves all extremities. PSYCHIATRIC: calm, cooperative Assessment & Plan Remarks Ischemic bowel sp resection and subsequnt anastomocsis Clostridia perfringens present in surg margins Pt is doing well, hemodynamically stable and afebril Leukocytosis - persists, aorunfd 14 H Lactic acid is getting worse cont zosyn fu WBC will need re-scanning repeat lactic acid Moriah Rowell MD Feb 08, 2017 22:59
[2017-02-09 00:20] VITALS: BP 155/86; PULSE 90; RESP 18; TEMP 97.9; O2SAT 97
[2017-02-09] MEDS: PIPERACIL-TAZO 4.5 GM PREMIX 100 ML IV SCH ×4 (01:00→17:54)
[2017-02-09] MEDS: INSULIN ASPART SUPPLEMENTAL SCALE SQ SCH ×6 (01:46→22:27)
[2017-02-09] MEDS: SIMETHICONE 125 MG CHEWABLE TAB PO SCH ×4 (01:46→20:04)
[2017-02-09] MEDS: CHLORHEXIDINE GLUCONATE 2 % 1 PACK (2 CLOTHS) TOP SCH (01:47)
[2017-02-09] MEDS: HYDROmorphone HCL PF 1 MG/ML VIAL IV PUSH PRN ×5 (02:52→20:05)
[2017-02-09] MEDS: SODIUM CHLORIDE 0.9% FLUSH 10 ML FLUSH IV FLUSH PRN ×2 (02:52→06:53)
[2017-02-09] MEDS: HYDROmorphone HCL 2 MG TAB PO PRN ×3 (06:00→17:51)
[2017-02-09] MEDS: HEPARIN SODIUM - SQ 10,000 UNITS/ML VIAL SQ SCH ×3 (06:00→22:25)
[2017-02-09 08:00] VITALS: BP 130/79; PULSE 99; RESP 17; TEMP 99; O2SAT 95
[2017-02-09] MEDS: LACTOBACILLUS ACIDOPHILUS TAB PO SCH ×3 (08:21→17:51)
[2017-02-09] MEDS: PANTOPRAZOLE SOD 20 MG DELAYED RELEASE TAB PO SCH (08:21)
[2017-02-09] MEDS: METOPROLOL TARTRATE 25 MG TAB PO SCH ×2 (08:21→20:05)
[2017-02-09] MEDS: INSULIN DETEMIR 100 UNITS/ML VIAL SQ SCH ×2 (08:21→20:05)
[2017-02-09] MEDS: DOCUSATE SODIUM 50 MG/SENNA 8.6 MG TAB PO SCH ×2 (08:21→20:04)
--- NOTE | 2017-02-09 10:40 | HHI.PR ---
Subjective Remarks Follow-up for ischemic bowel, diabetes mellitus. Patient is currently sitting in his chair, doing well. No chest pain, shortness of breath, fever or chills. He does report some pain around his abdomen. Objective Vitals Vital Signs Date Time Temp Pulse Resp B/P (MAP) Pulse Ox O2 Delivery O2 Flow Rate FiO2 02/09/17 08:00 99.0 99 17 130/79 (96) 95 02/09/17 00:20 97.9 90 18 155/86 (109) 97 02/08/17 20:16 96.8 88 17 157/90 (112) 95 02/08/17 16:00 95.6 82 19 155/94 (114) 97 02/08/17 12:00 95.0 84 18 134/85 (101) 99 I/O 02/08/17 02/08/17 02/08/17 02/09/17 02/09/17 02/09/17 07:00 15:00 23:00 07:00 15:00 23:00 Intake Total 900 ml 580 ml Output Total 1000 ml 3500 ml 1800 ml Balance -1000 ml -2600 ml -1220 ml Intake Oral 900 ml 580 ml Output Urine Total 1000 ml 3500 ml 1800 ml # Bowel Movements 1 0 Result Diagram: 02/08/17 0547 02/08/17 0547 Imaging Last Impressions Lower Extremity Ultrasound 02/07/17 0000 Signed Impressions: Service Date/Time: Tuesday, February 07, 2017 08:24 - CONCLUSION: Normal examination. No evidence of DVT Jamie Watters MD Chest X-Ray 02/07/17 0000 Signed Impressions: Service Date/Time: Tuesday, February 07, 2017 12:34 - CONCLUSION: 1. Possible CHF. Natalio Way MD Abdomen X-Ray 02/01/17 0000 Signed Impressions: Service Date/Time: Wednesday, February 01, 2017 11:14 - CONCLUSION: 1. Air lucency in the upper abdomen concerning for possible free intraperitoneal air. 2. NG tube looped in the stomach. Attention been made to contact the surgical team. Vishal Brewer MD Abdomen/Pelvis CT 01/29/17 0000 Signed Impressions: Service Date/Time: Sunday, January 29, 2017 06:37 - CONCLUSION: 1. Suspected ischemic bowel process involving the terminal ileum and cecum which is associated with portal gas in the liver. 2. No evidence of organized abscess. 3. Mild hydronephrosis and distended urinary bladder. Kelby Laurent MD Objective Remarks GENERAL: Alert, oriented 3, NAD. SKIN: Warm and dry. HEAD: Normocephalic. EYES: No scleral icterus. No injection or drainage. NECK: Supple, trachea midline. No JVD or lymphadenopathy. CARDIOVASCULAR: Reg rhythm, tachycardic without murmurs, gallops, or rubs. RESPIRATORY: Breath sounds equal bilaterally. No accessory muscle use. GASTROINTESTINAL: Abdomen soft, nondistended. MUSCULOSKELETAL: No cyanosis. 1+ edema in bilateral ext. BACK: Nontender without obvious deformity. No CVA tenderness. Procedures 01/29/2017 PROCEDURE 1. Exploratory laparotomy, lysis of adhesions. 2. Right colon resection 3. small bowel resection about the 20 cm distal ileum. 4. Application of temporary abdominal wound closure device. 01/31/2017 PROCEDURE 1. Removal of temporary abdominal closure device. 2. Abdominal washout. 3. Repositioning of NG tube to allow adequate drainage of the abdominal gastric contents. 4. Retrograde emptying of entirety of the small bowel into the stomach for decompression. 5. Resection of distal terminal ileum to obtain clear margins for pathology report to completely normal-looking peristaltic small bowel. 6. Anastomosis of ileum to proximal transverse colon in a [id number] functional end-to-end anastomosis. 7. Abdominal wound closure. Echo 02/08/2017 The left ventricular systolic function is moderately reduced with an estimated ejection fraction in the range of 40-45% (visually near 45%), mild global hypokinesis Normal left ventricular size. Mild mitral valve regurgitation. A/P Problem List: (1) Acute intestinal ischemic syndrome ICD Code: K55.059 - Acute (reversible) ischemia of intestine, part and extent unspecified (2) Diabetes ICD Code: E11.9 - Diabetes mellitus Status: Acute Assessment and Plan Mr. Parks is a pleasant 66-year-old male with a history of liver cirrhosis, bladder cancer, diabetes mellitus who presented to the hospital on 01/29/2017 with severe abdominal pain associated with nausea and vomiting. CT abdomen pelvis indicated ischemic bowel. Patient's blood sugar was around 1200 on admission. Patient underwent surgical intervention by general surgery including exploratory laparoscopy, lysis of adhesions and right colon resection as well as small bowel resection. Infectious disease was consulted and kept patient on Zosyn. - Ischemic bowel - Status post right colon resection as well as a small bowel resection. - Dilaudid PO for pain, will change morphine to Dilaudid IV for breakthrough pain. - Continue Dilaudid PO 2mg Q4hrs PRN. - Surgery following. - Continue Zosyn. WBC increased from 9.4 --> 14.0 --> 14.6. - UA unremarkable, CXR reviewed by me on 02/08/2017 - shows pulmonary congestion samantha on the left side. - Acute systolic congestive heart failure - Likely due to long standing hypertension. - He does have bilateral leg swelling, negative for DVT. - CXR is also indicative for CHF. 2D echo shows EF 40-45% - Continue metoprolol 25 mg Q12hrs, start Lisinopril 10mg Qday. - Will start Torsemide 10mg BID. - Diabetes mellitus - Levemir 10 units daily at bedtime. Continue sliding scale insulin. - Add pre-meal insulin Aspart 5 units TIDAC - Will get a lipid profile and then calculate his ASCVD score. His ASCVD score is likely high and would benefit from mod to high dose statin. - Acute kidney injury - resolved. Creatinine on admission 3.2 and currently < 1.0 - History of hepatitis B and C. - History of liver cirrhosis - No acute concerns. - Outpatient follow-up. Full code. Heparin subcutaneous. Padma Drew DO Feb 09, 2017 10:39 am
[2017-02-09] MEDS ORDERED: LISINOPRIL 10 MG TAB PO ONE (11:00)
[2017-02-09] MEDS: INSULIN ASPART 1,000 UNITS/10 ML VIAL SQ SCH ×2 (11:59→17:00)
[2017-02-09 12:00] VITALS: BP 135/74; PULSE 87; RESP 17; TEMP 97.7; O2SAT 95
--- NOTE | 2017-02-09 12:47 | HHI.IDPN ---
Subjective Subjective Remarks + low grade fevers abd pain better today had 2 formed BMs in the last 24 hrs Antibiotics zosyn Allergies: Coded Allergies: Iodinated Contrast- Oral and IV Dye (Unverified Allergy, Severe, rash/ flush, 01/29/17) butorphanol (Unverified Allergy, Severe, rash, 01/29/17) codeine (Unverified Allergy, Severe, breathing probs, 01/29/17) pentazocine (Unverified Allergy, Severe, breathing probs, 01/29/17) Objective . Vital Signs Date Time Temp Pulse Resp B/P (MAP) Pulse Ox O2 Delivery O2 Flow Rate FiO2 02/09/17 08:00 99.0 99 17 130/79 (96) 95 02/09/17 00:20 97.9 90 18 155/86 (109) 97 02/08/17 20:16 96.8 88 17 157/90 (112) 95 02/08/17 16:00 95.6 82 19 155/94 (114) 97 . Laboratory Tests Test 02/08/17 05:47 White Blood Count 14.6 TH/MM3 Red Blood Count 3.98 MIL/MM3 Hemoglobin 11.6 GM/DL Hematocrit 35.2 % Mean Corpuscular Volume 88.4 FL Mean Corpuscular Hemoglobin 29.2 PG Mean Corpuscular Hemoglobin Concent 33.0 % Red Cell Distribution Width 13.6 % Platelet Count 148 TH/MM3 Mean Platelet Volume 8.1 FL Neutrophils (%) (Auto) 77.6 % Lymphocytes (%) (Auto) 13.0 % Monocytes (%) (Auto) 8.1 % Eosinophils (%) (Auto) 1.0 % Basophils (%) (Auto) 0.3 % Neutrophils # (Auto) 11.3 TH/MM3 Lymphocytes # (Auto) 1.9 TH/MM3 Monocytes # (Auto) 1.2 TH/MM3 Eosinophils # (Auto) 0.2 TH/MM3 Basophils # (Auto) 0.0 TH/MM3 CBC Comment AUTO DIFF Differential Comment AUTO DIFF CONFIRMED Laboratory Tests Test 02/08/17 05:47 02/08/17 11:32 02/09/17 07:16 Blood Urea Nitrogen 7 MG/DL Creatinine 0.89 MG/DL Random Glucose 117 MG/DL Total Protein 5.5 GM/DL Calcium Level 7.2 MG/DL Sodium Level 137 MEQ/L Potassium Level 3.5 MEQ/L Chloride Level 106 MEQ/L Carbon Dioxide Level 22.6 MEQ/L Anion Gap 8 MEQ/L Estimat Glomerular Filtration Rate 86 ML/MIN Protein Corrected Calcium 8.1 MG/DL B-Type Natriuretic Peptide 70 PG/ML Lactic Acid Level 3.6 mmol/L 2.8 mmol/L Imaging Last Impressions Lower Extremity Ultrasound 02/07/17 0000 Signed Impressions: Service Date/Time: Tuesday, February 07, 2017 08:24 - CONCLUSION: Normal examination. No evidence of DVT Jamie Watters MD Chest X-Ray 02/07/17 0000 Signed Impressions: Service Date/Time: Tuesday, February 07, 2017 12:34 - CONCLUSION: 1. Possible CHF. Natalio Way MD Abdomen X-Ray 02/01/17 0000 Signed Impressions: Service Date/Time: Wednesday, February 01, 2017 11:14 - CONCLUSION: 1. Air lucency in the upper abdomen concerning for possible free intraperitoneal air. 2. NG tube looped in the stomach. Attention been made to contact the surgical team. Vishal Brewer MD Abdomen/Pelvis CT 01/29/17 0000 Signed Impressions: Service Date/Time: Sunday, January 29, 2017 06:37 - CONCLUSION: 1. Suspected ischemic bowel process involving the terminal ileum and cecum which is associated with portal gas in the liver. 2. No evidence of organized abscess. 3. Mild hydronephrosis and distended urinary bladder. Kelby Laurent MD Physical Exam CONSTITUTIONAL/GENERAL: This is an adequately nourished patient, in no apparent distress. TUBES/LINES/DRAINS: SKIN: No jaundice, rashes, or lesions. . Skin temperature appropriate. Not diaphoretic. EYES: Pupils equal and round and reactive. Extraocular motions intact. No scleral icterus. No injection or drainage. Fundi not examined. CARDIOVASCULAR: Regular rate and rhythm without murmurs, gallops, or rubs. No JVD. Peripheral pulses symmetric. RESPIRATORY/CHEST: Symmetric, unlabored respirations. Clear to auscultation. Breath sounds equal bilaterally. No wheezes, rales, or rhonchi. GASTROINTESTINAL: Abdomen with clean, dry incision , minimally tender, much less distended today . Bowel sounds hypoactive MUSCULOSKELETAL: Extremities without clubbing, cyanosis, significantly improved edema BLE NEUROLOGICAL: Awake and alert. Motor and sensory grossly within normal limits. Follows commands. clear speech. Moves all extremities. 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
[2017-02-09 16:00] VITALS: BP 119/83; PULSE 95; RESP 18; TEMP 96; O2SAT 95
--- NOTE | 2017-02-09 16:38 | HHI.PR ---
Subjective Subjective Notes Feels fairly comfortable; reports passing flatus Objective Vitals/I&O Vital Signs Date Time Temp Pulse Resp B/P (MAP) Pulse Ox O2 Delivery O2 Flow Rate FiO2 02/09/17 12:00 97.7 87 17 135/74 (94) 95 02/05/17 08:41 21 02/05/17 07:00 Room Air 2.00 Labs Laboratory Tests Test 02/09/17 07:16 Lactic Acid Level 2.8 Date/Time Source Procedure Growth Status 01/29/17 06:50 Blood Peripheral Aerobic Blood Culture - Final NO GROWTH IN 5 DAYS Complete 01/29/17 06:50 Blood Peripheral Anaerobic Blood Culture - Final NO GROWTH IN 5 DAYS Complete Radiology Last Impressions Lower Extremity Ultrasound 02/07/17 0000 Signed Impressions: Service Date/Time: Tuesday, February 07, 2017 08:24 - CONCLUSION: Normal examination. No evidence of DVT Jamie Watters MD Abdomen X-Ray 02/01/17 0000 Signed Impressions: Service Date/Time: Wednesday, February 01, 2017 11:14 - CONCLUSION: 1. Air lucency in the upper abdomen concerning for possible free intraperitoneal air. 2. NG tube looped in the stomach. Attention been made to contact the surgical team. Vishal Brewer MD Chest X-Ray 01/29/17 0000 Signed Impressions: Service Date/Time: Sunday, January 29, 2017 13:21 - CONCLUSION: 1. Right internal jugular central line has its tip in the superior vena cava. No pneumothorax is noted. 2. No acute cardiopulmonary disease. Michael Philip MD Abdomen/Pelvis CT 01/29/17 0000 Signed Impressions: Service Date/Time: Sunday, January 29, 2017 06:37 - CONCLUSION: 1. Suspected ischemic bowel process involving the terminal ileum and cecum which is associated with portal gas in the liver. 2. No evidence of organized abscess. 3. Mild hydronephrosis and distended urinary bladder. Kelby Laurent MD Abdomen: Other (mildly distended but nontender) Narrative Exam Jessy intact; no erythema or drainage from wound; clean and dry A/P Problem List: (1) Status post small bowel resection ICD Codes: Z90.49 - Acquired absence of other specified parts of digestive tract Status: Acute (2) Ischemic necrosis of large intestine ICD Codes: K55.049 - Acute infarction of large intestine, extent unspecified Status: Resolved (3) Diabetes mellitus with hyperglycemia ICD Codes: E11.65 - Type 2 diabetes mellitus with hyperglycemia Status: Acute (4) Chronic obstructive pulmonary disease ICD Codes: J44.9 - Chronic obstructive pulmonary disease Status: Chronic (5) Chronic hepatitis C virus infection ICD Codes: B18.2 - Chronic viral hepatitis C Status: Chronic (6) Diabetic neuropathy ICD Codes: E11.40 - Diabetic neuropathy Status: Chronic (7) Hyponatremia ICD Codes: E87.1 - Hypo-osmolality and hyponatremia Status: Acute (8) Cirrhosis of liver ICD Codes: K74.60 - Hepatic cirrhosis Status: Chronic (9) COPD (chronic obstructive pulmonary disease) ICD Codes: J44.9 - Chronic obstructive pulmonary disease, unspecified Status: Acute (10) History of DVT (deep vein thrombosis) ICD Codes: Z86.718 - History of deep venous thrombosis Status: Chronic (11) History of major abdominal surgery ICD Codes: Z98.890 - Other specified postprocedural states Status: Chronic (12) Bladder cancer ICD Codes: C67.9 - Malignant neoplasm of bladder, unspecified Status: Chronic (13) CHF (congestive heart failure) ICD Codes: I50.9 - Heart failure, unspecified Assessment and Plan A/P Problem List: (1) Status post small bowel resection ICD Codes: Z90.49 - Acquired absence of other specified parts of digestive tract Status: Acute (2) Ischemic necrosis of large intestine ICD Codes: K55.049 - Acute infarction of large intestine, extent unspecified Status: Resolved (3) Diabetes mellitus with hyperglycemia ICD Codes: E11.65 - Type 2 diabetes mellitus with hyperglycemia Status: Acute (4) Chronic obstructive pulmonary disease ICD Codes: J44.9 - Chronic obstructive pulmonary disease Status: Chronic (5) Chronic hepatitis C virus infection ICD Codes: B18.2 - Chronic viral hepatitis C Status: Chronic (6) Diabetic neuropathy ICD Codes: E11.40 - Diabetic neuropathy Status: Chronic (7) Hyponatremia ICD Codes: E87.1 - Hypo-osmolality and hyponatremia Status: Acute (8) Cirrhosis of liver ICD Codes: K74.60 - Hepatic cirrhosis Status: Chronic (9) COPD (chronic obstructive pulmonary disease) ICD Codes: J44.9 - Chronic obstructive pulmonary disease, unspecified Status: Acute (10) History of DVT (deep vein thrombosis) ICD Codes: Z86.718 - History of deep venous thrombosis Status: Chronic (11) History of major abdominal surgery ICD Codes: Z98.890 - Other specified postprocedural states Status: Chronic (12) Bladder cancer ICD Codes: C67.9 - Malignant neoplasm of bladder, unspecified Status: Chronic (13) CHF (congestive heart failure) ICD Codes: I50.9 - Heart failure, unspecified Assessment and Plan 66 year old male with ischemic bowel -PO Anastomosis from small bowel to transverse colon for resection of ischemic bowel -Pain control -Regular diet -Glucose control -OOB as tolerated; needs to move around more and ambulate in hallway; I encouraged him to do so today. -IS Jase Frias MD Feb 09, 2017 16:38
[2017-02-09] MEDS: TORSEMIDE 5 MG TAB PO SCH (17:51)
[2017-02-09] MEDS ORDERED: ATORVASTATIN 20 MG TAB PO SCH (21:00)
[2017-02-09 21:01] VITALS: BP 122/76; PULSE 82; RESP 18; TEMP 99.2; O2SAT 97
[2017-02-10] MEDS: PIPERACIL-TAZO 4.5 GM PREMIX 100 ML IV SCH ×4 (00:03→18:00)
[2017-02-10] MEDS: HYDROmorphone HCL 2 MG TAB PO PRN ×4 (00:03→19:14)
[2017-02-10 00:20] VITALS: BP 119/72; PULSE 91; RESP 17; TEMP 96.7; O2SAT 95
[2017-02-10] MEDS: HYDROmorphone HCL PF 1 MG/ML VIAL IV PUSH PRN ×6 (01:08→21:48)
[2017-02-10] MEDS: INSULIN ASPART SUPPLEMENTAL SCALE SQ SCH ×6 (01:14→21:57)
[2017-02-10] MEDS: CHLORHEXIDINE GLUCONATE 2 % 1 PACK (2 CLOTHS) TOP SCH (01:15)
[2017-02-10 04:32] LABS: AUTOMATED NEUTROPHIL # 11.2 TH/MM3 (1.8-7.7); BASOPHIL # 0.1 TH/MM3 (0-0.2); BASOPHIL % 0.4 % (0.0-2.0); EOSINOPHIL # 0.1 TH/MM3 (0-0.4); HEMATOCRIT 34.6 % (39.0-51.0); HEMO FLAGS DIFF FINAL; LYMPH % 16.8 % (9.0-44.0); LYMPHOCYTE # 2.5 TH/MM3 (1.0-4.8); MEAN CELL VOLUME 86.4 FL (80.0-100.0); MEAN CORPUSCULAR HEMOGLOBIN 29.4 PG (27.0-34.0); MEAN CORPUSCULAR HGB CONC 34.1 % (32.0-36.0); MONO % 7.9 % (0.0-8.0); NEUT % 73.9 % (16.0-70.0); PLATELET COUNT 159 TH/MM3 (150-450); RED CELL DISTRIBUTION WIDTH 13.6 % (11.6-17.2); WHITE BLOOD COUNT 15.1 TH/MM3 (4.0-11.0)
[2017-02-10 05:01] LABS: HDL CHOLESTEROL 11.4 MG/DL (40.0-60.0)
[2017-02-10] MEDS: SIMETHICONE 125 MG CHEWABLE TAB PO SCH ×4 (05:38→19:45)
[2017-02-10] MEDS: HEPARIN SODIUM - SQ 10,000 UNITS/ML VIAL SQ SCH ×3 (05:38→21:47)
[2017-02-10 08:00] VITALS: BP 132/82; PULSE 92; RESP 18; TEMP 98.7; O2SAT 95
[2017-02-10] MEDS: LISINOPRIL 10 MG TAB PO SCH (08:14)
[2017-02-10] MEDS: PANTOPRAZOLE SOD 20 MG DELAYED RELEASE TAB PO SCH (08:14)
[2017-02-10] MEDS: METOPROLOL TARTRATE 25 MG TAB PO SCH ×2 (08:14→19:45)
[2017-02-10] MEDS: LACTOBACILLUS ACIDOPHILUS TAB PO SCH ×3 (08:14→17:57)
[2017-02-10] MEDS: TORSEMIDE 5 MG TAB PO SCH ×2 (08:14→17:57)
[2017-02-10] MEDS: DOCUSATE SODIUM 50 MG/SENNA 8.6 MG TAB PO SCH ×2 (08:14→19:45)
[2017-02-10] MEDS: INSULIN ASPART 1,000 UNITS/10 ML VIAL SQ SCH ×3 (08:14→17:47)
--- NOTE | 2017-02-10 11:14 | HHI.PR ---
Subjective Remarks Follow-up for ischemic bowel, diabetes mellitus. Patient is doing well. Currently on room air, no chest pain, SOB. Still has some abdominal tenderness. No fever, chills. Objective Vitals Vital Signs Date Time Temp Pulse Resp B/P (MAP) Pulse Ox O2 Delivery O2 Flow Rate FiO2 02/10/17 10:40 16 02/10/17 08:13 16 02/10/17 08:00 98.7 92 18 132/82 (99) 95 02/10/17 00:20 96.7 91 17 119/72 (88) 95 02/09/17 21:01 99.2 82 18 122/76 (91) 97 02/09/17 16:00 96.0 95 18 119/83 (95) 95 02/09/17 12:00 97.7 87 17 135/74 (94) 95 I/O 02/09/17 02/09/17 02/09/17 02/10/17 02/10/17 02/10/17 07:00 15:00 23:00 07:00 15:00 23:00 Intake Total 580 ml 100 ml 950 ml 780 ml Output Total 1800 ml 2900 ml 300 ml Balance -1220 ml 100 ml 950 ml -2120 ml -300 ml Intake Oral 580 ml 850 ml 580 ml IV Total 100 ml 100 ml 200 ml Output Urine Total 1800 ml 2900 ml 300 ml # Voids 7 # Bowel Movements 0 3 1 Result Diagram: 02/10/17 0352 02/08/17 0547 Imaging Last Impressions Lower Extremity Ultrasound 02/07/17 0000 Signed Impressions: Service Date/Time: Tuesday, February 07, 2017 08:24 - CONCLUSION: Normal examination. No evidence of DVT Jamie Watters MD Chest X-Ray 02/07/17 0000 Signed Impressions: Service Date/Time: Tuesday, February 07, 2017 12:34 - CONCLUSION: 1. Possible CHF. Natalio Way MD Abdomen X-Ray 02/01/17 0000 Signed Impressions: Service Date/Time: Wednesday, February 01, 2017 11:14 - CONCLUSION: 1. Air lucency in the upper abdomen concerning for possible free intraperitoneal air. 2. NG tube looped in the stomach. Attention been made to contact the surgical team. Vishal Brewer MD Abdomen/Pelvis CT 01/29/17 0000 Signed Impressions: Service Date/Time: Sunday, January 29, 2017 06:37 - CONCLUSION: 1. Suspected ischemic bowel process involving the terminal ileum and cecum which is associated with portal gas in the liver. 2. No evidence of organized abscess. 3. Mild hydronephrosis and distended urinary bladder. Kelby Laurent MD Objective Remarks GENERAL: Alert, oriented 3, NAD. SKIN: Warm and dry. HEAD: Normocephalic. EYES: No scleral icterus. No injection or drainage. NECK: Supple, trachea midline. No JVD or lymphadenopathy. CARDIOVASCULAR: Reg rhythm, tachycardic without murmurs, gallops, or rubs. RESPIRATORY: Breath sounds equal bilaterally. No accessory muscle use. GASTROINTESTINAL: Abdomen soft, nondistended. MUSCULOSKELETAL: No cyanosis. 1+ edema in bilateral ext. BACK: Nontender without obvious deformity. No CVA tenderness. Procedures 01/29/2017 PROCEDURE 1. Exploratory laparotomy, lysis of adhesions. 2. Right colon resection 3. small bowel resection about the 20 cm distal ileum. 4. Application of temporary abdominal wound closure device. 01/31/2017 PROCEDURE 1. Removal of temporary abdominal closure device. 2. Abdominal washout. 3. Repositioning of NG tube to allow adequate drainage of the abdominal gastric contents. 4. Retrograde emptying of entirety of the small bowel into the stomach for decompression. 5. Resection of distal terminal ileum to obtain clear margins for pathology report to completely normal-looking peristaltic small bowel. 6. Anastomosis of ileum to proximal transverse colon in a [id number] functional end-to-end anastomosis. 7. Abdominal wound closure. Echo 02/08/2017 The left ventricular systolic function is moderately reduced with an estimated ejection fraction in the range of 40-45% (visually near 45%), mild global hypokinesis Normal left ventricular size. Mild mitral valve regurgitation. A/P Problem List: (1) Acute intestinal ischemic syndrome ICD Code: K55.059 - Acute (reversible) ischemia of intestine, part and extent unspecified (2) Diabetes ICD Code: E11.9 - Diabetes mellitus Status: Acute Assessment and Plan Mr. Parks is a pleasant 66-year-old male with a history of liver cirrhosis, bladder cancer, diabetes mellitus who presented to the hospital on 01/29/2017 with severe abdominal pain associated with nausea and vomiting. CT abdomen pelvis indicated ischemic bowel. Patient's blood sugar was around 1200 on admission. Patient underwent surgical intervention by general surgery including exploratory laparoscopy, lysis of adhesions and right colon resection as well as small bowel resection. Infectious disease was consulted and kept patient on Zosyn. - Ischemic bowel - Status post right colon resection as well as a small bowel resection. - Dilaudid PO for pain, will change morphine to Dilaudid IV for breakthrough pain. - Continue Dilaudid PO 2mg Q4hrs PRN. - Surgery following. - Continue Zosyn. WBC increased from 9.4 --> 14.0 --> 14.6. - UA unremarkable, CXR reviewed by me on 02/08/2017 - shows pulmonary congestion samantha on the left side. - Acute systolic congestive heart failure - Likely due to long standing hypertension. - He does have bilateral leg swelling, negative for DVT. - CXR is also indicative for CHF. 2D echo shows EF 40-45% - Continue metoprolol 25 mg Q12hrs, Continue Lisinopril 10mg Qday. - Continue Torsemide 10mg BID. - Diabetes mellitus - Levemir 10 units daily at bedtime. Continue sliding scale insulin. - Add pre-meal insulin Aspart 5 units TIDAC - Will get a lipid profile and then calculate his ASCVD score. His ASCVD score is over 37% and would benefit from mod to high dose statin. - Will start patient on Lipitor 40mg QHS. - Acute kidney injury - resolved. Creatinine on admission 3.2 and currently < 1.0 - History of hepatitis B and C. - History of liver cirrhosis - No acute concerns. - Outpatient follow-up. Full code. Heparin subcutaneous. Padma Drew DO Feb 10, 2017 11:14
--- NOTE | 2017-02-10 11:20 | HHI.PR ---
Subjective Subjective Notes DAILY PROGRESS NOTE FOR SURGICAL ATTENDING, DR. THEODORE JORDAN Resting in bed Has no complaints except some mild RLQ pain Objective Vitals/I&O Vital Signs Date Time Temp Pulse Resp B/P (MAP) Pulse Ox O2 Delivery O2 Flow Rate FiO2 02/10/17 10:40 16 02/10/17 08:00 98.7 92 132/82 (99) 95 Labs Laboratory Tests Test 02/10/17 03:52 White Blood Count 15.1 Red Blood Count 4.00 Hemoglobin 11.8 Hematocrit 34.6 Mean Corpuscular Volume 86.4 Mean Corpuscular Hemoglobin 29.4 Mean Corpuscular Hemoglobin Concent 34.1 Red Cell Distribution Width 13.6 Platelet Count 159 Mean Platelet Volume 8.7 Neutrophils (%) (Auto) 73.9 Lymphocytes (%) (Auto) 16.8 Monocytes (%) (Auto) 7.9 Eosinophils (%) (Auto) 1.0 Basophils (%) (Auto) 0.4 Neutrophils # (Auto) 11.2 Lymphocytes # (Auto) 2.5 Monocytes # (Auto) 1.2 Eosinophils # (Auto) 0.1 Basophils # (Auto) 0.1 CBC Comment DIFF FINAL Differential Comment Triglycerides Level 152 Cholesterol Level 72 LDL Cholesterol 30 HDL Cholesterol 11.4 Cholesterol/HDL Ratio 6.31 Date/Time Source Procedure Growth Status 01/29/17 06:50 Blood Peripheral Aerobic Blood Culture - Final NO GROWTH IN 5 DAYS Complete 01/29/17 06:50 Blood Peripheral Anaerobic Blood Culture - Final NO GROWTH IN 5 DAYS Complete Radiology Last Impressions Lower Extremity Ultrasound 02/07/17 0000 Signed Impressions: Service Date/Time: Tuesday, February 07, 2017 08:24 - CONCLUSION: Normal examination. No evidence of DVT Jamie Watters MD Abdomen X-Ray 02/01/17 0000 Signed Impressions: Service Date/Time: Wednesday, February 01, 2017 11:14 - CONCLUSION: 1. Air lucency in the upper abdomen concerning for possible free intraperitoneal air. 2. NG tube looped in the stomach. Attention been made to contact the surgical team. Vishal Brewer MD Chest X-Ray 01/29/17 0000 Signed Impressions: Service Date/Time: Sunday, January 29, 2017 13:21 - CONCLUSION: 1. Right internal jugular central line has its tip in the superior vena cava. No pneumothorax is noted. 2. No acute cardiopulmonary disease. Michael Philip MD Abdomen/Pelvis CT 01/29/17 0000 Signed Impressions: Service Date/Time: Sunday, January 29, 2017 06:37 - CONCLUSION: 1. Suspected ischemic bowel process involving the terminal ileum and cecum which is associated with portal gas in the liver. 2. No evidence of organized abscess. 3. Mild hydronephrosis and distended urinary bladder. Kelby Laurent MD Cardiovascular: Regular Lungs: Clear Abdomen: Other (midline incision; RLQ tenderness with palpation; minimally distended ) Extremities: No edema A/P Problem List: (1) Status post small bowel resection ICD Codes: Z90.49 - Acquired absence of other specified parts of digestive tract Status: Acute (2) Ischemic necrosis of large intestine ICD Codes: K55.049 - Acute infarction of large intestine, extent unspecified Status: Resolved (3) Diabetes mellitus with hyperglycemia ICD Codes: E11.65 - Type 2 diabetes mellitus with hyperglycemia Status: Acute (4) Chronic obstructive pulmonary disease ICD Codes: J44.9 - Chronic obstructive pulmonary disease Status: Chronic (5) Chronic hepatitis C virus infection ICD Codes: B18.2 - Chronic viral hepatitis C Status: Chronic (6) Diabetic neuropathy ICD Codes: E11.40 - Diabetic neuropathy Status: Chronic (7) Hyponatremia ICD Codes: E87.1 - Hypo-osmolality and hyponatremia Status: Acute (8) Cirrhosis of liver ICD Codes: K74.60 - Hepatic cirrhosis Status: Chronic (9) COPD (chronic obstructive pulmonary disease) ICD Codes: J44.9 - Chronic obstructive pulmonary disease, unspecified Status: Acute (10) History of DVT (deep vein thrombosis) ICD Codes: Z86.718 - History of deep venous thrombosis Status: Chronic (11) History of major abdominal surgery ICD Codes: Z98.890 - Other specified postprocedural states Status: Chronic (12) Bladder cancer ICD Codes: C67.9 - Malignant neoplasm of bladder, unspecified Status: Chronic (13) CHF (congestive heart failure) ICD Codes: I50.9 - Heart failure, unspecified Assessment and Plan 66 year old male with ischemic bowel -s/p Anastomosis from small bowel to transverse colon for resection of ischemic bowel -WBC elevated today --- on Zosyn-- clinically patient is stable; Afebrile overnight -Pain control -Regular diet -Glucose control -OOB as tolerated -IS Attending Statement NOTE FOR SURGICAL ATTENDING, DR. THEODORE JORDAN I agree with above assessment and plan. The following services were provided during this hospital visit: Chart data review, vital sign assessments/reviewing monitor data Review of consultations notes if present. Medication orders/review and/or management Ordering and/or reviewing lab tests Ordering and/or interpreting/reviewing x-rays and/or diagnostic studies Care of the patient and discussion of the patient with the care team Documentation time To help prompt me to consider important information that might be impacting today's encounter and assessment, information from prior notes written by myself or my colleagues may have been "brought forward/copy and pasted" into today's note. Mary Deluna Feb 10, 2017 11:20 Theodore Jordan MD Feb 11, 2017 08:31
[2017-02-10 12:00] VITALS: BP 119/69; PULSE 84; RESP 18; TEMP 98.2; O2SAT 95
[2017-02-10 16:00] VITALS: BP 114/77; PULSE 93; RESP 18; TEMP 98.4; O2SAT 96
[2017-02-10 16:39] VITALS: O2SAT 96
[2017-02-10] MEDS: ATORVASTATIN 40 MG TAB PO SCH (19:45)
[2017-02-10] MEDS: INSULIN DETEMIR 100 UNITS/ML VIAL SQ SCH (19:46)
[2017-02-10 20:00] VITALS: BP 138/82; PULSE 99; RESP 18; TEMP 100.2; O2SAT 97
[2017-02-11] VITALS: BP 132/77; PULSE 79; RESP 18; TEMP 99; O2SAT 95
[2017-02-11] MEDS: HYDROmorphone HCL 2 MG TAB PO PRN ×4 (01:04→19:45)
[2017-02-11] MEDS: PIPERACIL-TAZO 4.5 GM PREMIX 100 ML IV SCH ×3 (01:04→13:54)
[2017-02-11] MEDS: HYDROmorphone HCL PF 1 MG/ML VIAL IV PUSH PRN ×3 (01:51→10:01)
[2017-02-11] MEDS: INSULIN ASPART SUPPLEMENTAL SCALE SQ SCH ×6 (01:53→22:21)
[2017-02-11] MEDS: SIMETHICONE 125 MG CHEWABLE TAB PO SCH ×4 (02:26→21:08)
[2017-02-11] MEDS: CHLORHEXIDINE GLUCONATE 2 % 1 PACK (2 CLOTHS) TOP SCH (04:00)
[2017-02-11] MEDS: HEPARIN SODIUM - SQ 10,000 UNITS/ML VIAL SQ SCH ×3 (06:01→22:00)
[2017-02-11 08:00] VITALS: BP 121/77; PULSE 96; RESP 18; TEMP 99; O2SAT 97
[2017-02-11] MEDS: LACTOBACILLUS ACIDOPHILUS TAB PO SCH ×3 (08:56→18:45)
[2017-02-11] MEDS: LISINOPRIL 10 MG TAB PO SCH (08:56)
[2017-02-11] MEDS: PANTOPRAZOLE SOD 20 MG DELAYED RELEASE TAB PO SCH (08:56)
[2017-02-11] MEDS: TORSEMIDE 5 MG TAB PO SCH ×2 (08:56→18:45)
[2017-02-11] MEDS: METOPROLOL TARTRATE 25 MG TAB PO SCH ×2 (08:56→19:46)
[2017-02-11] MEDS: DOCUSATE SODIUM 50 MG/SENNA 8.6 MG TAB PO SCH ×2 (08:57→19:50)
[2017-02-11] MEDS: INSULIN ASPART 1,000 UNITS/10 ML VIAL SQ SCH ×4 (09:00→18:44)
--- NOTE | 2017-02-11 10:20 | HHI.PR ---
Subjective Remarks Follow-up for ischemic bowel, diabetes mellitus. Mr. Parks is doing well. He is ambulating well. Having BM. No acute concerns. Had low grade fever yesterday. Objective Vitals Vital Signs Date Time Temp Pulse Resp B/P (MAP) Pulse Ox O2 Delivery O2 Flow Rate FiO2 02/11/17 08:00 99.0 96 18 121/77 (92) 97 02/11/17 06:32 20 02/11/17 02:04 18 02/11/17 00:00 99.0 79 18 132/77 (95) 95 02/10/17 20:00 100.2 99 18 138/82 (100) 97 02/10/17 16:39 96 02/10/17 16:00 98.4 93 18 114/77 (89) 96 02/10/17 12:00 98.2 84 18 119/69 (86) 95 I/O 02/10/17 02/10/17 02/10/17 02/11/17 02/11/17 02/11/17 07:00 15:00 23:00 07:00 15:00 23:00 Intake Total 780 ml 100 ml 1100 ml 580 ml Output Total 2900 ml 300 ml 2650 ml 2100 ml Balance -2120 ml -200 ml -1550 ml -1520 ml Intake Oral 580 ml 1000 ml 480 ml IV Total 200 ml 100 ml 100 ml 100 ml Output Urine Total 2900 ml 300 ml 2650 ml 2100 ml # Bowel Movements 1 2 Result Diagram: 02/10/17 0352 02/08/17 0547 Imaging Last Impressions Chest X-Ray 02/11/17 0000 Signed Impressions: Service Date/Time: Saturday, February 11, 2017 14:24 - CONCLUSION: 1. Chronic appearing interstitial changes. Stable compared to previous exam. No definite pneumonia identified. Natalio Way MD Lower Extremity Ultrasound 02/07/17 0000 Signed Impressions: Service Date/Time: Tuesday, February 07, 2017 08:24 - CONCLUSION: Normal examination. No evidence of DVT Jamie Watters MD Abdomen X-Ray 02/01/17 0000 Signed Impressions: Service Date/Time: Wednesday, February 01, 2017 11:14 - CONCLUSION: 1. Air lucency in the upper abdomen concerning for possible free intraperitoneal air. 2. NG tube looped in the stomach. Attention been made to contact the surgical team. Vishal Brewer MD Abdomen/Pelvis CT 01/29/17 0000 Signed Impressions: Service Date/Time: Sunday, January 29, 2017 06:37 - CONCLUSION: 1. Suspected ischemic bowel process involving the terminal ileum and cecum which is associated with portal gas in the liver. 2. No evidence of organized abscess. 3. Mild hydronephrosis and distended urinary bladder. Kelby Laurent MD Objective Remarks GENERAL: Alert, oriented 3, NAD. SKIN: Warm and dry. HEAD: Normocephalic. EYES: No scleral icterus. No injection or drainage. NECK: Supple, trachea midline. No JVD or lymphadenopathy. CARDIOVASCULAR: Reg rhythm, tachycardic without murmurs, gallops, or rubs. RESPIRATORY: Breath sounds equal bilaterally. No accessory muscle use. GASTROINTESTINAL: Abdomen soft, nondistended. MUSCULOSKELETAL: No cyanosis. 1+ edema in bilateral ext. BACK: Nontender without obvious deformity. No CVA tenderness. Procedures 01/29/2017 PROCEDURE 1. Exploratory laparotomy, lysis of adhesions. 2. Right colon resection 3. small bowel resection about the 20 cm distal ileum. 4. Application of temporary abdominal wound closure device. 01/31/2017 PROCEDURE 1. Removal of temporary abdominal closure device. 2. Abdominal washout. 3. Repositioning of NG tube to allow adequate drainage of the abdominal gastric contents. 4. Retrograde emptying of entirety of the small bowel into the stomach for decompression. 5. Resection of distal terminal ileum to obtain clear margins for pathology report to completely normal-looking peristaltic small bowel. 6. Anastomosis of ileum to proximal transverse colon in a [id number] functional end-to-end anastomosis. 7. Abdominal wound closure. Echo 02/08/2017 The left ventricular systolic function is moderately reduced with an estimated ejection fraction in the range of 40-45% (visually near 45%), mild global hypokinesis Normal left ventricular size. Mild mitral valve regurgitation. A/P Problem List: (1) Acute intestinal ischemic syndrome ICD Code: K55.059 - Acute (reversible) ischemia of intestine, part and extent unspecified (2) Diabetes ICD Code: E11.9 - Diabetes mellitus Status: Acute Assessment and Plan Mr. 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 CT abdomen pelvis indicated ischemic bowel. Patient's blood sugar was around 1200 on admission. Patient underwent surgical intervention by general surgery including exploratory laparoscopy, lysis of adhesions and right colon resection as well as small bowel resection. Infectious disease was consulted and kept patient on Zosyn. - Ischemic bowel - Status post right colon resection as well as a small bowel resection. - D/C IV dilaudid that was used for breakthrough pain. - Continue Dilaudid PO 2mg Q4hrs PRN. - Surgery following. - Currently on Zosyn. WBC increased from 9.4 --> 15 --> 14. - Discussed with ID (both Dr. Rowell and Dr. JOYNER). - Due to low grade fever, and persistent leukocytosis above 12K, after discussing with ID, we will do the following: - CXR, UA - Discontinue all IV Access to rule out IV access related infection - D/C Zosyn and start PO Augmentin - Dr. JOYNER (sp?) will evaluate patient on 02/12/2017. Appreciate his input. - Acute systolic congestive heart failure - Likely due to long standing hypertension. - He does have bilateral leg swelling, negative for DVT. - CXR is also indicative for CHF. 2D echo shows EF 40-45% - Continue metoprolol 25 mg Q12hrs, Continue Lisinopril 10mg Qday. - Continue Torsemide 10mg BID. - Diabetes mellitus - Levemir 10 units daily at bedtime. Continue sliding scale insulin. - pre-meal insulin Aspart 5 units TIDAC - Will get a lipid profile and then calculate his ASCVD score. His ASCVD score is over 37% and would benefit from mod to high dose statin. - Lipitor 40mg QHS. - Acute kidney injury - resolved. Creatinine on admission 3.2 and currently < 1.0 - History of hepatitis B and C. - History of liver cirrhosis - No acute concerns. - Outpatient follow-up. Full code. Heparin subcutaneous. Padma Drew DO Feb 11, 2017 10:20
[2017-02-11 12:00] VITALS: BP 113/80; PULSE 89; RESP 17; TEMP 98; O2SAT 97
[2017-02-11 12:48] LABS: AUTOMATED NEUTROPHIL # 10.9 TH/MM3 (1.8-7.7); BASOPHIL # 0.1 TH/MM3 (0-0.2); BASOPHIL % 0.4 % (0.0-2.0); EOSINOPHIL # 0.1 TH/MM3 (0-0.4); EOSINOPHIL % 0.5 % (0.0-4.0); HEMATOCRIT 35.5 % (39.0-51.0); HEMO FLAGS DIFF FINAL; LYMPH % 14.2 % (9.0-44.0); MEAN CELL VOLUME 86.9 FL (80.0-100.0); MEAN CORPUSCULAR HEMOGLOBIN 29.4 PG (27.0-34.0); MEAN CORPUSCULAR HGB CONC 33.8 % (32.0-36.0); MONO % 7.3 % (0.0-8.0); NEUT % 77.6 % (16.0-70.0); PLATELET COUNT 195 TH/MM3 (150-450); RED BLOOD COUNT 4.09 MIL/MM3 (4.50-5.90); RED CELL DISTRIBUTION WIDTH 13.2 % (11.6-17.2)
--- NOTE | 2017-02-11 13:24 | HHI.PR ---
Subjective Subjective Notes Resting in bed No issues Objective Vitals/I&O Vital Signs Date Time Temp Pulse Resp B/P (MAP) Pulse Ox O2 Delivery O2 Flow Rate FiO2 02/11/17 12:00 98.0 89 17 113/80 (91) 97 Labs Laboratory Tests Test 02/11/17 12:19 White Blood Count 14.0 Red Blood Count 4.09 Hemoglobin 12.0 Hematocrit 35.5 Mean Corpuscular Volume 86.9 Mean Corpuscular Hemoglobin 29.4 Mean Corpuscular Hemoglobin Concent 33.8 Red Cell Distribution Width 13.2 Platelet Count 195 Mean Platelet Volume 8.8 Neutrophils (%) (Auto) 77.6 Lymphocytes (%) (Auto) 14.2 Monocytes (%) (Auto) 7.3 Eosinophils (%) (Auto) 0.5 Basophils (%) (Auto) 0.4 Neutrophils # (Auto) 10.9 Lymphocytes # (Auto) 2.0 Monocytes # (Auto) 1.0 Eosinophils # (Auto) 0.1 Basophils # (Auto) 0.1 CBC Comment DIFF FINAL Differential Comment Date/Time Source Procedure Growth Status 01/29/17 06:50 Blood Peripheral Aerobic Blood Culture - Final NO GROWTH IN 5 DAYS Complete 01/29/17 06:50 Blood Peripheral Anaerobic Blood Culture - Final NO GROWTH IN 5 DAYS Complete Radiology Last Impressions Lower Extremity Ultrasound 02/07/17 0000 Signed Impressions: Service Date/Time: Tuesday, February 07, 2017 08:24 - CONCLUSION: Normal examination. No evidence of DVT Jamie Watters MD Abdomen X-Ray 02/01/17 0000 Signed Impressions: Service Date/Time: Wednesday, February 01, 2017 11:14 - CONCLUSION: 1. Air lucency in the upper abdomen concerning for possible free intraperitoneal air. 2. NG tube looped in the stomach. Attention been made to contact the surgical team. Vishal Brewer MD Chest X-Ray 01/29/17 0000 Signed Impressions: Service Date/Time: Sunday, January 29, 2017 13:21 - CONCLUSION: 1. Right internal jugular central line has its tip in the superior vena cava. No pneumothorax is noted. 2. No acute cardiopulmonary disease. Michael Philip MD Abdomen/Pelvis CT 01/29/17 0000 Signed Impressions: Service Date/Time: Sunday, January 29, 2017 06:37 - CONCLUSION: 1. Suspected ischemic bowel process involving the terminal ileum and cecum which is associated with portal gas in the liver. 2. No evidence of organized abscess. 3. Mild hydronephrosis and distended urinary bladder. Kelby Laurent MD Cardiovascular: Regular Lungs: Clear Abdomen: Other (midline incision with cliff), Post-op tenderness Extremities: No edema A/P Problem List: (1) Status post small bowel resection ICD Codes: Z90.49 - Acquired absence of other specified parts of digestive tract Status: Acute (2) Ischemic necrosis of large intestine ICD Codes: K55.049 - Acute infarction of large intestine, extent unspecified Status: Resolved (3) Diabetes mellitus with hyperglycemia ICD Codes: E11.65 - Type 2 diabetes mellitus with hyperglycemia Status: Acute (4) Chronic obstructive pulmonary disease ICD Codes: J44.9 - Chronic obstructive pulmonary disease Status: Chronic (5) Chronic hepatitis C virus infection ICD Codes: B18.2 - Chronic viral hepatitis C Status: Chronic (6) Diabetic neuropathy ICD Codes: E11.40 - Diabetic neuropathy Status: Chronic (7) Hyponatremia ICD Codes: E87.1 - Hypo-osmolality and hyponatremia Status: Acute (8) Cirrhosis of liver ICD Codes: K74.60 - Hepatic cirrhosis Status: Chronic (9) COPD (chronic obstructive pulmonary disease) ICD Codes: J44.9 - Chronic obstructive pulmonary disease, unspecified Status: Acute (10) History of DVT (deep vein thrombosis) ICD Codes: Z86.718 - History of deep venous thrombosis Status: Chronic (11) History of major abdominal surgery ICD Codes: Z98.890 - Other specified postprocedural states Status: Chronic (12) Bladder cancer ICD Codes: C67.9 - Malignant neoplasm of bladder, unspecified Status: Chronic (13) CHF (congestive heart failure) ICD Codes: I50.9 - Heart failure, unspecified Assessment and Plan 66 year old male with ischemic bowel -s/p Anastomosis from small bowel to transverse colon for resection of ischemic bowel -WBC now trending down -ID following -Pain control -Regular diet -Glucose control -OOB as tolerated -IS -Plan to DC cliff tomorrow -Discussed with Dr. Drew Attending Statement pt doing very well he tells me he may be DC on fri. cliff out before dc Mary Deluna Feb 11, 2017 13:24 Theodore Jordan MD Feb 11, 2017 16:48
--- NOTE | 2017-02-11 15:10 | RADRPT ---
EXAM DATE/TIME: 02/11/2017 14:24 [facility] COMPARISON: CHEST SINGLE AP, February 07, 2017, 12:34. INDICATIONS : Fever. MEDICAL HISTORY : Hypercholesterolemia. Chronic obstructive pulmonary disease. Deep venous thrombosis. Sciatica. Neurop athy. Hypertension. Chronic pancreatitis. Hepatitis C. Kidney stones. Rheumatoid arthritis. Diabetes. Esophogeal varices. Bladder cancer. SURGICAL HISTORY : Cholecystectomy. Appendectomy. Splenic repair. Left hand surgery.Right knee surgery. Vasectomy. Lumba r surgery. ENCOUNTER: Subsequent ACUITY: 3 weeks PAIN SCORE: 0/10 LOCATION: chest FINDINGS: There are minimal bibasilar effusions. There are chronic interstitial changes. The lungs are otherwis e clear. The exam is stable compared to the previous. The visualized osseous structures demonstrate old left-sided rib fractures but are otherwise intact. CONCLUSION: 1. Chronic appearing interstitial changes. Stable compared to previous exam. No definite pneumonia id entified. Natalio Way MD on February 11, 2017 at 15:08 Board Certified Radiologist. This report was verified electronically.
[2017-02-11 16:00] VITALS: BP 140/86; PULSE 102; RESP 16; TEMP 98.9; O2SAT 98
[2017-02-11 16:37] LABS: BACTERIA, URINE RARE /hpf; BLOOD, URINE TRACE (NEG); COMMENT (UR) CULTURE INDICATED; CULTURE IF INDICATED CULTURE INDICATED; GLUCOSE,URINE 150 mg/dL (NEG); KETONE, URINE NEG (NEG); NITRITE,URINE NEG (NEG); URINE COLOR COLORLESS (YELLW/STRAW)
[2017-02-11] MEDS: ATORVASTATIN 40 MG TAB PO SCH (19:45)
[2017-02-11 20:08] VITALS: BP 141/78; PULSE 100; RESP 17; TEMP 98.5; O2SAT 98
[2017-02-11] MEDS: AMOXICILLIN/CLAVULANATE K 875 MG TAB PO SCH (21:08)
[2017-02-11] MEDS: ONDANSETRON HCL 4 MG/2 ML VIAL IV PUSH PRN (21:08)
[2017-02-11] MEDS: INSULIN DETEMIR 100 UNITS/ML VIAL SQ SCH (22:20)
[2017-02-12 00:27] VITALS: BP 116/74; PULSE 76; RESP 20; TEMP 99; O2SAT 95
[2017-02-12] MEDS: HYDROmorphone HCL 2 MG TAB PO PRN ×5 (01:50→20:26)
[2017-02-12] MEDS: INSULIN ASPART SUPPLEMENTAL SCALE SQ SCH ×6 (01:51→20:36)
[2017-02-12] MEDS: SIMETHICONE 125 MG CHEWABLE TAB PO SCH ×4 (01:52→20:27)
[2017-02-12 02:01] LABS: C. DIFF EPI 027 PRESUMPTIVE NEGATIVE (NEGATIVE)
[2017-02-12] MEDS: CHLORHEXIDINE GLUCONATE 2 % 1 PACK (2 CLOTHS) TOP SCH (04:00)
[2017-02-12] MEDS: HEPARIN SODIUM - SQ 10,000 UNITS/ML VIAL SQ SCH ×3 (05:38→20:38)
[2017-02-12] MEDS: ONDANSETRON HCL 4 MG/2 ML VIAL IV PUSH PRN (06:37)
[2017-02-12 08:00] VITALS: BP 120/78; PULSE 105; RESP 17; TEMP 97.2; O2SAT 97
[2017-02-12] MEDS: AMOXICILLIN/CLAVULANATE K 875 MG TAB PO SCH ×2 (08:23→20:27)
[2017-02-12] MEDS: DOCUSATE SODIUM 50 MG/SENNA 8.6 MG TAB PO SCH ×2 (08:23→20:27)
[2017-02-12] MEDS: LACTOBACILLUS ACIDOPHILUS TAB PO SCH ×3 (08:23→18:53)
[2017-02-12] MEDS: PANTOPRAZOLE SOD 20 MG DELAYED RELEASE TAB PO SCH (08:27)
[2017-02-12] MEDS: METOPROLOL TARTRATE 25 MG TAB PO SCH ×2 (08:27→20:27)
[2017-02-12] MEDS: TORSEMIDE 5 MG TAB PO SCH ×2 (08:27→18:53)
[2017-02-12] MEDS: LISINOPRIL 10 MG TAB PO SCH (08:27)
[2017-02-12 12:00] VITALS: BP 129/85; PULSE 94; RESP 18; TEMP 97.5; O2SAT 99
[2017-02-12] MEDS ORDERED: LOPERAMIDE HCL 2 MG CAP PO PRN (12:00)
[2017-02-12] MEDS ORDERED: LOPERAMIDE HCL 2 MG CAP PO ONE (12:00)
[2017-02-12] MEDS: INSULIN ASPART 1,000 UNITS/10 ML VIAL SQ SCH ×2 (12:06→18:52)
--- NOTE | 2017-02-12 12:57 | HHI.PR ---
Addendum to Inpatient Note Additional Information Pt seen and examined around 1230 Full note to follow co abdominal pain, diarrhea, nasue vomiting on exam benign but tender abdomen OW OK Rec's: CT A/P stool for c.Moriah Lafleur MD Feb 12, 2017 12:57
[2017-02-12 13:35] LABS: AUTOMATED NEUTROPHIL # 10.5 TH/MM3 (1.8-7.7); BASOPHIL # 0.1 TH/MM3 (0-0.2); BASOPHIL % 0.4 % (0.0-2.0); EOSINOPHIL # 0.1 TH/MM3 (0-0.4); EOSINOPHIL % 0.8 % (0.0-4.0); HEMATOCRIT 37.6 % (39.0-51.0); HEMO FLAGS DIFF FINAL; LYMPHOCYTE # 1.8 TH/MM3 (1.0-4.8); MEAN CELL VOLUME 87.4 FL (80.0-100.0); MEAN CORPUSCULAR HEMOGLOBIN 29.1 PG (27.0-34.0); MEAN CORPUSCULAR HGB CONC 33.3 % (32.0-36.0); MONO % 8.4 % (0.0-8.0); NEUT % 77.4 % (16.0-70.0); PLATELET COUNT 203 TH/MM3 (150-450); RED CELL DISTRIBUTION WIDTH 13.3 % (11.6-17.2); WHITE BLOOD COUNT 13.6 TH/MM3 (4.0-11.0)
[2017-02-12 14:03] LABS: BICARBONATE 32.4 MEQ/L (21.0-32.0); MAGNESIUM 0.9 MG/DL (1.5-2.5); TOTAL BILIRUBIN ADULT 0.4 MG/DL (0.2-1.0)
[2017-02-12 14:15] LABS: CALCIUM-PROTEIN CORRECTED 7.4 MG/DL (8.5-10.1); POTASSIUM 2.6 MEQ/L (3.5-5.1)
[2017-02-12] MEDS ORDERED: POTASSIUM CHLORIDE 10 MEQ CONTROLLED RELEASE TAB PO ONE (14:45)
--- NOTE | 2017-02-12 15:42 | HHI.PR ---
Subjective Subjective Notes DAILY PROGRESS NOTE FOR SURGICAL ATTENDING, DR. THEODORE JORDAN I had a bad night I had nausea vomiting and diarrhea im better now Tolerating regular diet Objective Vitals/I&O Vital Signs Date Time Temp Pulse Resp B/P (MAP) Pulse Ox O2 Delivery O2 Flow Rate FiO2 02/12/17 12:00 97.5 94 18 129/85 (100) 99 Labs Laboratory Tests Test 01/29/17 04:50 01/29/17 06:45 01/29/17 06:55 01/29/17 08:59 Prothrombin Time 12.5 SEC Prothromb Time International Ratio 1.1 RATIO Activated Partial Thromboplast Time 28.7 SEC Urine Squamous Epithelial Cells 0-5 /hpf Urine Amorphous Sediment SMALL Lipase 323 U/L Serum Osmolality 336 MOSM/KG B-Hydroxybutyrate 0.74 MMOL/L Venous Blood pH 7.34 Venous Blood Partial Pressure CO2 45 mmHg Venous Blood Partial Pressure O2 51 mmHg Venous Blood HCO3 23 mmol/L Venous Blood Oxygen Saturation 77 % Venous Blood Oxygen Content 14.7 Vol % Venous Blood Base Excess -1.6 mmol/L Nasal Screen MRSA (PCR) MRSA NOT DETECTED Test 01/29/17 11:50 01/30/17 05:00 02/08/17 05:47 02/09/17 07:16 Blood Gas Puncture Site VINH Blood Gas Patient Temperature 98.6 Blood Gas HCO3 19 mmol/L Blood Gas Base Excess -7.2 mmol/L Blood Gas Oxygen Saturation 96 % Arterial Blood pH 7.23 Arterial Blood Partial Pressure CO2 47 mmHg Arterial Blood Partial Pressure O2 272 mmHg Arterial Blood Oxygen Content 20.0 Vol % Arterial Blood Carboxyhemoglobin 2.9 % Arterial Blood Methemoglobin 1.0 % Blood Gas Hemoglobin 14.4 G/DL Oxygen Delivery Device O.R.GAS Blood Gas Inspired Oxygen 60 % Differential Total Cells Counted 100 Neutrophils % (Manual) 66 % Band Neutrophils % 15 % Lymphocytes % 15 % Monocytes % 4 % Neutrophils # (Manual) 10.0 TH/MM3 Platelet Estimate LOW Platelet Morphology Comment NORMAL Red Cell Morphology Comment NORMAL B-Type Natriuretic Peptide 70 PG/ML Lactic Acid Level 2.8 mmol/L Test 02/10/17 03:52 02/11/17 16:00 02/11/17 23:50 02/12/17 13:20 Triglycerides Level 152 MG/DL Cholesterol Level 72 MG/DL LDL Cholesterol 30 MG/DL HDL Cholesterol 11.4 MG/DL Cholesterol/HDL Ratio 6.31 RATIO Urine Color COLORLESS Urine Turbidity CLEAR Urine pH 7.0 Urine Specific Western 1.004 Urine Protein NEG mg/dL Urine Glucose (UA) 150 mg/dL Urine Ketones NEG mg/dL Urine Occult Blood TRACE Urine Nitrite NEG Urine Bilirubin NEG Urine Urobilinogen LESS THAN 2.0 MG/DL Urine Leukocyte Esterase SMALL Urine RBC 1 /hpf Urine WBC 9 /hpf Urine Bacteria RARE /hpf Microscopic Urinalysis Comment CULTURE INDICATED Stool C. difficile Toxin (PCR) NEGATIVE Stl C. difficile Toxin Epiderm 027 PRESUMPTIVE NEGATIVE White Blood Count 13.6 TH/MM3 Red Blood Count 4.30 MIL/MM3 Hemoglobin 12.5 GM/DL Hematocrit 37.6 % Mean Corpuscular Volume 87.4 FL Mean Corpuscular Hemoglobin 29.1 PG Mean Corpuscular Hemoglobin Concent 33.3 % Red Cell Distribution Width 13.3 % Platelet Count 203 TH/MM3 Mean Platelet Volume 8.6 FL Neutrophils (%) (Auto) 77.4 % Lymphocytes (%) (Auto) 13.0 % Monocytes (%) (Auto) 8.4 % Eosinophils (%) (Auto) 0.8 % Basophils (%) (Auto) 0.4 % Neutrophils # (Auto) 10.5 TH/MM3 Lymphocytes # (Auto) 1.8 TH/MM3 Monocytes # (Auto) 1.1 TH/MM3 Eosinophils # (Auto) 0.1 TH/MM3 Basophils # (Auto) 0.1 TH/MM3 CBC Comment DIFF FINAL Differential Comment Blood Urea Nitrogen 10 MG/DL Creatinine 1.18 MG/DL Random Glucose 350 MG/DL Total Protein 6.2 GM/DL Albumin 1.6 GM/DL Calcium Level 6.9 MG/DL Phosphorus Level 3.0 MG/DL Magnesium Level 0.9 MG/DL Alkaline Phosphatase 83 U/L Aspartate Amino Transf (AST/SGOT) 25 U/L Alanine Aminotransferase (ALT/SGPT) 13 U/L Total Bilirubin 0.4 MG/DL Sodium Level 132 MEQ/L Potassium Level 2.6 MEQ/L Chloride Level 91 MEQ/L Carbon Dioxide Level 32.4 MEQ/L Anion Gap 9 MEQ/L Estimat Glomerular Filtration Rate 62 ML/MIN Protein Corrected Calcium 7.4 MG/DL Radiology Last Impressions Chest X-Ray 02/11/17 0000 Signed Impressions: Service Date/Time: Saturday, February 11, 2017 14:24 - CONCLUSION: 1. Chronic appearing interstitial changes. Stable compared to previous exam. No definite pneumonia identified. Natalio Way MD Lower Extremity Ultrasound 02/07/17 0000 Signed Impressions: Service Date/Time: Tuesday, February 07, 2017 08:24 - CONCLUSION: Normal examination. No evidence of DVT Jamie Watters MD Abdomen X-Ray 02/01/17 0000 Signed Impressions: Service Date/Time: Wednesday, February 01, 2017 11:14 - CONCLUSION: 1. Air lucency in the upper abdomen concerning for possible free intraperitoneal air. 2. NG tube looped in the stomach. Attention been made to contact the surgical team. Vishal Brewer MD Abdomen/Pelvis CT 01/29/17 0000 Signed Impressions: Service Date/Time: Sunday, January 29, 2017 06:37 - CONCLUSION: 1. Suspected ischemic bowel process involving the terminal ileum and cecum which is associated with portal gas in the liver. 2. No evidence of organized abscess. 3. Mild hydronephrosis and distended urinary bladder. Kelby Laurent MD Cardiovascular: Regular Lungs: Clear Abdomen: Non-distended, Other (mild soreness right upper quadrant cliff removed), BS normal Extremities: No edema, Perfused Wound Wound : Wound Location: Abdomen Appearance: Clean & Dry (cliff removed) A/P Problem List: (1) Status post small bowel resection ICD Codes: Z90.49 - Acquired absence of other specified parts of digestive tract Status: Acute (2) Ischemic necrosis of large intestine ICD Codes: K55.049 - Acute infarction of large intestine, extent unspecified Status: Resolved (3) Diabetes mellitus with hyperglycemia ICD Codes: E11.65 - Type 2 diabetes mellitus with hyperglycemia Status: Acute (4) Chronic obstructive pulmonary disease ICD Codes: J44.9 - Chronic obstructive pulmonary disease Status: Chronic (5) Chronic hepatitis C virus infection ICD Codes: B18.2 - Chronic viral hepatitis C Status: Chronic (6) Diabetic neuropathy ICD Codes: E11.40 - Diabetic neuropathy Status: Chronic (7) Hyponatremia ICD Codes: E87.1 - Hypo-osmolality and hyponatremia Status: Acute (8) Cirrhosis of liver ICD Codes: K74.60 - Hepatic cirrhosis Status: Chronic (9) COPD (chronic obstructive pulmonary disease) ICD Codes: J44.9 - Chronic obstructive pulmonary disease, unspecified Status: Acute (10) History of DVT (deep vein thrombosis) ICD Codes: Z86.718 - History of deep venous thrombosis Status: Chronic (11) History of major abdominal surgery ICD Codes: Z98.890 - Other specified postprocedural states Status: Chronic (12) Bladder cancer ICD Codes: C67.9 - Malignant neoplasm of bladder, unspecified Status: Chronic (13) CHF (congestive heart failure) ICD Codes: I50.9 - Heart failure, unspecified (14) Low blood magnesium ICD Codes: R79.0 - Abnormal level of blood mineral (15) Chronically low serum potassium ICD Codes: E87.6 - Hypokalemia (16) History of low potassium ICD Codes: Z86.39 - Personal history of other endocrine, nutritional and metabolic disease (17) Abnormal albumin ICD Codes: R77.0 - Abnormality of albumin (18) Nausea & vomiting ICD Codes: R11.2 - Nausea with vomiting, unspecified Status: Acute (19) DVT prophylaxis Status: Acute Assessment and Plan 66 year old male with ischemic bowel with Clostridium perfringens He has made a tremendous recovery however had some nausea and vomiting last night had some findings of CHF on echo and cxr Today's lab shows severe low magnesium severe low potassium elevated sugar Urinalysis shows yeast in his urine I'll replace his magnesium replace his potassium Start Diflucan Most likely we'll have to delay discharge until these medical issues are rectified Attending Statement NOTE FOR SURGICAL ATTENDING, DR. THEODORE JORDAN I attest that I had a [id number] encounter with the patient on the same day, and personally performed and documented my assessment and findings in the medical record. The following services were provided during this hospital visit: Chart data review, vital sign assessments/reviewing monitor data Review of consultations notes if present. Medication orders/review and/or management Ordering and/or reviewing lab tests Ordering and/or interpreting/reviewing x-rays and/or diagnostic studies Care of the patient and discussion of the patient with the care team Documentation time To help prompt me to consider important information that might be impacting today's encounter and assessment, information from prior notes written by myself or my colleagues may have been "brought forward/copy and pasted" into today's note. Theodore Jordan MD Feb 12, 2017 15:42
[2017-02-12] MEDS ORDERED: MAGNESIUM SULFATE 4 GM PREMIX 100 ML IV ONE (15:45)
[2017-02-12 16:00] VITALS: BP 111/68; PULSE 101; RESP 16; TEMP 98.9; O2SAT 98
--- NOTE | 2017-02-12 16:16 | RADRPT ---
EXAM DATE/TIME: 02/12/2017 15:32 [facility] COMPARISON: CT ABDOMEN & PELVIS W/O CONTRAST, January 29, 2017, 6:37. INDICATIONS : Diffuse abdomen pain, abscess. ORAL CONTRAST: No oral contrast ingested. RADIATION DOSE: 9.96 CTDIvol (mGy) MEDICAL HISTORY : Cardiovascular disease. Hypertension. Deep venous thrombosis.Bladder cancer, Cirrohsis, Hep C. SURGICAL HISTORY : Appendectomy. Cholecystectomy.Splenectomy. ENCOUNTER: Initial ACUITY: 1 day PAIN SCALE: 4/10 LOCATION: Bilateral lower quadrant TECHNIQUE: Volumetric scanning of the abdomen and pelvis was performed. Using automated exposure control and ad justment of the mA and/or kV according to patient size, radiation dose was kept as low as reasonably achievable to obtain optimal diagnostic quality images. DICOM format image data is available electro nically for review and comparison. FINDINGS: LOWER LUNGS: Minimal groundglass opacities at the left lung base, likely atelectasis. LIVER: Liver demonstrates homogeneous density without evidence for significant intrahepatic ductal location. Subtle nodularity of the surface. Interval resolution of previously noted portal venous gas. Gallbla dder is surgically absent. SPLEEN: Spleen is enlarged measuring 14.8 cm in length. PANCREAS: Calcification near the pancreatic head may reflect sequela of prior pancreatitis. KIDNEYS: Kidneys are symmetrical in size without evidence for radiopaque renal calculi or hydronephrosis. 1 cm hypodense lesion in the posterior right inferior pole which is too small to fully characterize. ADRENAL GLANDS: Within normal limits. VASCULAR: Atherosclerotic calcifications involving the infrarenal, aorta and iliac arteries bilaterally. BOWEL/MESENTERY: Postsurgical features of interval partial right hemicolectomy and likely small bowel resection. There is a moderate amount of ascites which appears simple fluid in density. Small bowel loops are minimal ly diffusely dilated. Mild sigmoid diverticulosis. No significant drainable fluid collection. Very luna btle free air likely postsurgical. ABDOMINAL WALL: Postsurgical features in the mid anterior abdominal wall. No significant focal fluid collections. RETROPERITONEUM: There is no lymphadenopathy. BLADDER: No wall thickening or mass. REPRODUCTIVE: Within normal limits. INGUINAL: There is no lymphadenopathy or hernia. MUSCULOSKELETAL: Old healed right-sided rib fractures. Small bone island in the left ilium. No focal abnormal lytic or blastic bony lesions. CONCLUSION: 1. Expected postsurgical features with minimally dilated loops of small bowel consistent with mild ad ynamic ileus. 2. Moderate simple appearing ascites. No focal drainable fluid collections. 3. Cirrhotic appearing liver with mild splenomegaly. 4. Stable additional ancillary findings, as above. Fredy Guzmán MD on February 12, 2017 at 16:02 Board Certified Radiologist. This report was verified electronically.
[2017-02-12] MEDS: POTASSIUM CHLOR 20 MEQ PREMIX 100 ML IV SCH ×2 (16:21→16:45)
--- NOTE | 2017-02-12 16:24 | RADRPT ---
EXAM DATE/TIME: 02/12/2017 15:22 [facility] COMPARISON: CHEST SINGLE AP, February 11, 2017, 14:24. INDICATIONS : Abdominal pain. MEDICAL HISTORY : Hypertension. Chronic pancreatitis. Hepatitis C. Kidney stones. Rheumatoid arthritis. SURGICAL HISTORY : Cholecystectomy. Colon resection. Appendectomy. ENCOUNTER: Initial ACUITY: 2 days PAIN SCORE: 4/10. LOCATION: middle abdomen. FINDINGS: The bowel gas pattern is within normal limits. No findings to indicate bowel obstruction are seen. Th ere are surgical sutures in the right upper quadrant. No abnormal calcifications are identified. No organomegaly is evident. There are degenerative changes in lumbar spine. CONCLUSION: 1. Benign-appearing bowel gas pattern. 2. Degenerative changes of the lumbar spine. Natalio Way MD on February 12, 2017 at 16:20 Board Certified Radiologist. This report was verified electronically.
--- NOTE | 2017-02-12 16:34 | HHI.PR ---
Subjective Remarks patient c/o of severe diffuse abdominal pain and distension denies nausea or vomiting slight tachycardia Objective Vitals Vital Signs Date Time Temp Pulse Resp B/P (MAP) Pulse Ox O2 Delivery O2 Flow Rate FiO2 02/12/17 12:00 97.5 94 18 129/85 (100) 99 02/12/17 08:00 97.2 105 17 120/78 (92) 97 02/12/17 02:50 18 02/12/17 00:27 99.0 76 20 116/74 (88) 95 02/11/17 20:08 98.5 100 17 141/78 (99) 98 I/O 02/11/17 02/11/17 02/11/17 02/12/17 02/12/17 02/12/17 07:00 15:00 23:00 07:00 15:00 23:00 Intake Total 580 ml 865 ml 580 ml Output Total 2100 ml 1850 ml Balance -1520 ml -985 ml 580 ml Intake Oral 480 ml 865 ml 580 ml IV Total 100 ml Output Urine Total 2100 ml 1850 ml # Voids 1 4 # Bowel Movements 3 4 Result Diagram: 02/12/17 1320 02/12/17 1320 Objective Remarks GENERAL: Alert, oriented 3, mild distress due to pain. SKIN: Warm and dry. HEAD: Normocephalic. EYES: No scleral icterus. No injection or drainage. NECK: Supple, trachea midline. No JVD or lymphadenopathy. CARDIOVASCULAR: Reg rhythm, tachycardic without murmurs, gallops, or rubs. RESPIRATORY: Breath sounds equal bilaterally. No accessory muscle use. GASTROINTESTINAL: Abdomen soft, nondistended. MUSCULOSKELETAL: No cyanosis. 1+ edema in bilateral ext. BACK: Nontender without obvious deformity. No CVA tenderness. Procedures 01/29/2017 PROCEDURE 1. Exploratory laparotomy, lysis of adhesions. 2. Right colon resection 3. small bowel resection about the 20 cm distal ileum. 4. Application of temporary abdominal wound closure device. 01/31/2017 PROCEDURE 1. Removal of temporary abdominal closure device. 2. Abdominal washout. 3. Repositioning of NG tube to allow adequate drainage of the abdominal gastric contents. 4. Retrograde emptying of entirety of the small bowel into the stomach for decompression. 5. Resection of distal terminal ileum to obtain clear margins for pathology report to completely normal-looking peristaltic small bowel. 6. Anastomosis of ileum to proximal transverse colon in a [id number] functional end-to-end anastomosis. 7. Abdominal wound closure. Echo 02/08/2017 The left ventricular systolic function is moderately reduced with an estimated ejection fraction in the range of 40-45% (visually near 45%), mild global hypokinesis Normal left ventricular size. Mild mitral valve regurgitation. A/P Problem List: (1) Acute intestinal ischemic syndrome ICD Code: K55.059 - Acute (reversible) ischemia of intestine, part and extent unspecified (2) Diabetes ICD Code: E11.9 - Diabetes mellitus Status: Acute Assessment and Plan Mr. 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 CT abdomen pelvis indicated ischemic bowel. Patient's blood sugar was around 1200 on admission. Patient underwent surgical intervention by general surgery including exploratory laparoscopy, lysis of adhesions and right colon resection as well as small bowel resection. Infectious disease was consulted and kept patient on Zosyn. - Ischemic bowel - schemic bowel sp resection and subsequnt anastomocsis - Clostridia perfringens present in surg margins - Status post right colon resection as well as a small bowel resection. - D/C IV dilaudid that was used for breakthrough pain. - Continue Dilaudid PO 2mg Q4hrs PRN. - Surgery following. - Treated with Zosyn. WBC increased from 9.4 --> 15 --> 14. - Discussed with ID (both Dr. Rowell and Dr. JOYNER). - Due to low grade fever, and persistent leukocytosis above 12K, after discussing with ID, we will do the following: - CXR, UA - Discontinue all IV Access to rule out IV access related infection - D/C Zosyn and start PO Augmentin 02/12 CXR shows chronic appearing interstitial changes. UA positive and urine culture. Patient started on Fluconazole. - Acute systolic congestive heart failure - Likely due to long standing hypertension. - He does have bilateral leg swelling, negative for DVT. - CXR is also indicative for CHF. 2D echo shows EF 40-45% - Continue metoprolol 25 mg Q12hrs, Continue Lisinopril 10mg Qday. - Continue Torsemide 10mg BID. - Diabetes mellitus - Levemir 10 units daily at bedtime. Continue sliding scale insulin. - pre-meal insulin Aspart 5 units TIDAC - Will get a lipid profile and then calculate his ASCVD score. His ASCVD score is over 37% and would benefit from mod to high dose statin. - Lipitor 40mg QHS. - Acute kidney injury - resolved. Creatinine on admission 3.2 and currently < 1.0 - History of hepatitis B and C. - History of liver cirrhosis - No acute concerns. - Outpatient follow-up. - Hypokalemia - replace IV and PO - Hypocalcemia - Replace with Calcium chloride and continue to monitor bmp. Full code. Heparin subcutaneous. David Braswell MD Feb 12, 2017 16:34
[2017-02-12] MEDS ORDERED: CALCIUM CHLORIDE INJ 2 GM in SODIUM CHLORIDE 0.9% INJ 100 ML IV ONE (17:00)
--- NOTE | 2017-02-12 18:34 | HHI.IDPN ---
Subjective Subjective Remarks Delayed entry Pt seen and examined around 1230 Full note to follow co abdominal pain, diarrhea, nasue vomiting afebrile Antibiotics zosyn Allergies: Coded Allergies: Iodinated Contrast- Oral and IV Dye (Unverified Allergy, Severe, rash/ flush, 01/29/17) butorphanol (Unverified Allergy, Severe, rash, 01/29/17) codeine (Unverified Allergy, Severe, breathing probs, 01/29/17) pentazocine (Unverified Allergy, Severe, breathing probs, 01/29/17) Objective . Vital Signs Date Time Temp Pulse Resp B/P (MAP) Pulse Ox O2 Delivery O2 Flow Rate FiO2 02/12/17 16:00 98.9 101 16 111/68 (82) 98 02/12/17 12:00 97.5 94 18 129/85 (100) 99 02/12/17 08:00 97.2 105 17 120/78 (92) 97 02/12/17 02:50 18 02/12/17 00:27 99.0 76 20 116/74 (88) 95 02/11/17 20:08 98.5 100 17 141/78 (99) 98 . Laboratory Tests Test 02/11/17 12:19 02/12/17 13:20 White Blood Count 14.0 TH/MM3 13.6 TH/MM3 Red Blood Count 4.09 MIL/MM3 4.30 MIL/MM3 Hemoglobin 12.0 GM/DL 12.5 GM/DL Hematocrit 35.5 % 37.6 % Mean Corpuscular Volume 86.9 FL 87.4 FL Mean Corpuscular Hemoglobin 29.4 PG 29.1 PG Mean Corpuscular Hemoglobin Concent 33.8 % 33.3 % Red Cell Distribution Width 13.2 % 13.3 % Platelet Count 195 TH/MM3 203 TH/MM3 Mean Platelet Volume 8.8 FL 8.6 FL Neutrophils (%) (Auto) 77.6 % 77.4 % Lymphocytes (%) (Auto) 14.2 % 13.0 % Monocytes (%) (Auto) 7.3 % 8.4 % Eosinophils (%) (Auto) 0.5 % 0.8 % Basophils (%) (Auto) 0.4 % 0.4 % Neutrophils # (Auto) 10.9 TH/MM3 10.5 TH/MM3 Lymphocytes # (Auto) 2.0 TH/MM3 1.8 TH/MM3 Monocytes # (Auto) 1.0 TH/MM3 1.1 TH/MM3 Eosinophils # (Auto) 0.1 TH/MM3 0.1 TH/MM3 Basophils # (Auto) 0.1 TH/MM3 0.1 TH/MM3 CBC Comment DIFF FINAL DIFF FINAL Differential Comment Laboratory Tests Test 02/12/17 13:20 Blood Urea Nitrogen 10 MG/DL Creatinine 1.18 MG/DL Random Glucose 350 MG/DL Total Protein 6.2 GM/DL Albumin 1.6 GM/DL Calcium Level 6.9 MG/DL Phosphorus Level 3.0 MG/DL Magnesium Level 0.9 MG/DL Alkaline Phosphatase 83 U/L Aspartate Amino Transf (AST/SGOT) 25 U/L Alanine Aminotransferase (ALT/SGPT) 13 U/L Total Bilirubin 0.4 MG/DL Sodium Level 132 MEQ/L Potassium Level 2.6 MEQ/L Chloride Level 91 MEQ/L Carbon Dioxide Level 32.4 MEQ/L Anion Gap 9 MEQ/L Estimat Glomerular Filtration Rate 62 ML/MIN Protein Corrected Calcium 7.4 MG/DL Microbiology Date/Time Source Procedure Growth Status 02/11/17 16:00 Urine Clean Catch Urine Culture - Preliminary Yeast-Id To Follow Resulted Imaging Last Impressions Lower Extremity Ultrasound 02/07/17 0000 Signed Impressions: Service Date/Time: Tuesday, February 07, 2017 08:24 - CONCLUSION: Normal examination. No evidence of DVT Jamie Watters MD Chest X-Ray 02/07/17 0000 Signed Impressions: Service Date/Time: Tuesday, February 07, 2017 12:34 - CONCLUSION: 1. Possible CHF. Natalio Way MD Abdomen X-Ray 02/01/17 0000 Signed Impressions: Service Date/Time: Wednesday, February 01, 2017 11:14 - CONCLUSION: 1. Air lucency in the upper abdomen concerning for possible free intraperitoneal air. 2. NG tube looped in the stomach. Attention been made to contact the surgical team. Vishal Brewer MD Abdomen/Pelvis CT 01/29/17 0000 Signed Impressions: Service Date/Time: Sunday, January 29, 2017 06:37 - CONCLUSION: 1. Suspected ischemic bowel process involving the terminal ileum and cecum which is associated with portal gas in the liver. 2. No evidence of organized abscess. 3. Mild hydronephrosis and distended urinary bladder. Kelby Laurent MD Physical Exam CONSTITUTIONAL/GENERAL: This is an adequately nourished patient, in no apparent distress. TUBES/LINES/DRAINS: SKIN: No jaundice, rashes, or lesions. . Skin temperature appropriate. Not diaphoretic. EYES: Pupils equal and round and reactive. Extraocular motions intact. No scleral icterus. No injection or drainage. Fundi not examined. CARDIOVASCULAR: Regular rate and rhythm without murmurs, gallops, or rubs. No JVD. Peripheral pulses symmetric. RESPIRATORY/CHEST: Symmetric, unlabored respirations. Clear to auscultation. Breath sounds equal bilaterally. No wheezes, rales, or rhonchi. GASTROINTESTINAL: Abdomen with clean, dry incision , quite tender, not distended today . Bowel sounds hypoactive MUSCULOSKELETAL: Extremities without clubbing, cyanosis, no edema BLE NEUROLOGICAL: Awake and alert. Motor and sensory grossly within normal limits. Follows commands. clear speech. Moves all extremities. PSYCHIATRIC: calm, cooperative Assessment & Plan Remarks Ischemic bowel sp resection and subsequnt anastomocsis Clostridia perfringens present in surg margins Leukocytosis - persists, aorunfd 14 H New diarrhea, nausea, vomiting REC's: cont zosyn fu WBC CT A/P stool for c.Moriah Gooden RN, MD Feb 12, 2017 18:34
[2017-02-12 18:57] VITALS: O2SAT 98
[2017-02-12 20:00] VITALS: BP 133/82; PULSE 105; RESP 17; TEMP 98.4; O2SAT 98
[2017-02-12] MEDS ORDERED: POTASSIUM CHLORIDE 25 MEQ EFFERVESCENT TAB PO ONE (20:00)
[2017-02-12] MEDS: MAGNESIUM SULFAT 1 GM PREMIX 100 ML x2 bags IV SCH ×3 (20:27→23:09)
[2017-02-12] MEDS: ATORVASTATIN 40 MG TAB PO SCH (20:27)
[2017-02-12] MEDS: INSULIN DETEMIR 100 UNITS/ML VIAL SQ SCH (20:36)
[2017-02-13] MEDS: HYDROmorphone HCL 2 MG TAB PO PRN ×6 (00:12→21:03)
[2017-02-13] MEDS: MAGNESIUM SULFAT 1 GM PREMIX 100 ML x2 bags IV SCH (00:15)
[2017-02-13 00:42] LABS: BICARBONATE 32.3 MEQ/L (21.0-32.0); POTASSIUM 3.1 MEQ/L (3.5-5.1)
[2017-02-13 00:43] VITALS: BP 137/89; PULSE 90; RESP 17; TEMP 97.8; O2SAT 96
[2017-02-13] MEDS ORDERED: POTASSIUM CHLORIDE 25 MEQ EFFERVESCENT TAB PO ONE (01:30)
[2017-02-13] MEDS: INSULIN ASPART SUPPLEMENTAL SCALE SQ SCH ×6 (02:00→22:00)
[2017-02-13] MEDS: CHLORHEXIDINE GLUCONATE 2 % 1 PACK (2 CLOTHS) TOP SCH (02:51)
[2017-02-13] MEDS: HEPARIN SODIUM - SQ 10,000 UNITS/ML VIAL SQ SCH ×3 (04:35→21:01)
[2017-02-13] MEDS: SIMETHICONE 125 MG CHEWABLE TAB PO SCH ×4 (04:35→21:00)
[2017-02-13 08:00] VITALS: BP 123/76; PULSE 104; RESP 17; TEMP 98.5; O2SAT 100
[2017-02-13] MEDS: INSULIN ASPART 1,000 UNITS/10 ML VIAL SQ SCH ×4 (08:52→17:09)
[2017-02-13] MEDS: AMOXICILLIN/CLAVULANATE K 875 MG TAB PO SCH (08:54)
[2017-02-13] MEDS: FLUCONAZOLE 200 MG TAB PO SCH (08:55)
[2017-02-13] MEDS: TORSEMIDE 5 MG TAB PO SCH ×2 (08:55→17:08)
[2017-02-13] MEDS: LACTOBACILLUS ACIDOPHILUS TAB PO SCH ×3 (08:55→17:08)
[2017-02-13] MEDS: METOPROLOL TARTRATE 25 MG TAB PO SCH ×2 (08:56→20:59)
[2017-02-13] MEDS: LISINOPRIL 10 MG TAB PO SCH (08:57)
[2017-02-13] MEDS: DOCUSATE SODIUM 50 MG/SENNA 8.6 MG TAB PO SCH (08:57)
[2017-02-13] MEDS: PANTOPRAZOLE SOD 20 MG DELAYED RELEASE TAB PO SCH (08:57)
[2017-02-13] MEDS ORDERED: POTASSIUM CHLORIDE 10 MEQ CONTROLLED RELEASE TAB PO ONE ×2 (10:30→15:00)
[2017-02-13 12:00] VITALS: BP 120/88; PULSE 91; RESP 17; TEMP 98.8; O2SAT 98
[2017-02-13 13:33] LABS: AUTOMATED NEUTROPHIL # 9.6 TH/MM3 (1.8-7.7); BASOPHIL # 0.1 TH/MM3 (0-0.2); BASOPHIL % 0.6 % (0.0-2.0); EOSINOPHIL # 0.2 TH/MM3 (0-0.4); EOSINOPHIL % 1.8 % (0.0-4.0); HEMATOCRIT 35.6 % (39.0-51.0); HEMO FLAGS DIFF FINAL; LYMPH % 17.4 % (9.0-44.0); LYMPHOCYTE # 2.3 TH/MM3 (1.0-4.8); MEAN CELL VOLUME 86.8 FL (80.0-100.0); MEAN CORPUSCULAR HEMOGLOBIN 28.5 PG (27.0-34.0); MEAN CORPUSCULAR HGB CONC 32.9 % (32.0-36.0); MONO % 8.1 % (0.0-8.0); NEUT % 72.1 % (16.0-70.0); PLATELET COUNT 213 TH/MM3 (150-450); RED CELL DISTRIBUTION WIDTH 13.4 % (11.6-17.2); WHITE BLOOD COUNT 13.3 TH/MM3 (4.0-11.0)
[2017-02-13 13:51] LABS: ALT (GPT) 16 U/L (12-78); ANION GAP 7 MEQ/L (5-15); AST (GOT) 30 U/L (15-37); BICARBONATE 30.8 MEQ/L (21.0-32.0); BLOOD UREA NITROGEN 10 MG/DL (7-18); CHLORIDE 96 MEQ/L (98-107); GLOMERULAR FILTRATION RATE 75 ML/MIN (>89); POTASSIUM 3.4 MEQ/L (3.5-5.1); SODIUM (NA) 134 MEQ/L (136-145)
[2017-02-13 13:54] LABS: ALKALINE PHOSPHATASE 83 U/L (45-117); TOTAL BILIRUBIN ADULT 0.4 MG/DL (0.2-1.0)
--- NOTE | 2017-02-13 14:32 | HHI.PR ---
Subjective Subjective Notes DAILY PROGRESS NOTE FOR SURGICAL ATTENDING, DR. THEODORE JORDAN Sitting in chair talking to friends No complaints Objective Vitals/I&O Vital Signs Date Time Temp Pulse Resp B/P (MAP) Pulse Ox O2 Delivery O2 Flow Rate FiO2 02/13/17 12:00 98.8 91 17 120/88 (99) 98 Labs Laboratory Tests Test 01/29/17 04:50 01/29/17 06:45 01/29/17 06:55 01/29/17 08:59 Prothrombin Time 12.5 SEC Prothromb Time International Ratio 1.1 RATIO Activated Partial Thromboplast Time 28.7 SEC Urine Squamous Epithelial Cells 0-5 /hpf Urine Amorphous Sediment SMALL Lipase 323 U/L Serum Osmolality 336 MOSM/KG B-Hydroxybutyrate 0.74 MMOL/L Venous Blood pH 7.34 Venous Blood Partial Pressure CO2 45 mmHg Venous Blood Partial Pressure O2 51 mmHg Venous Blood HCO3 23 mmol/L Venous Blood Oxygen Saturation 77 % Venous Blood Oxygen Content 14.7 Vol % Venous Blood Base Excess -1.6 mmol/L Nasal Screen MRSA (PCR) MRSA NOT DETECTED Test 01/29/17 11:50 01/30/17 05:00 02/08/17 05:47 02/09/17 07:16 Blood Gas Puncture Site VINH Blood Gas Patient Temperature 98.6 Blood Gas HCO3 19 mmol/L Blood Gas Base Excess -7.2 mmol/L Blood Gas Oxygen Saturation 96 % Arterial Blood pH 7.23 Arterial Blood Partial Pressure CO2 47 mmHg Arterial Blood Partial Pressure O2 272 mmHg Arterial Blood Oxygen Content 20.0 Vol % Arterial Blood Carboxyhemoglobin 2.9 % Arterial Blood Methemoglobin 1.0 % Blood Gas Hemoglobin 14.4 G/DL Oxygen Delivery Device O.R.GAS Blood Gas Inspired Oxygen 60 % Differential Total Cells Counted 100 Neutrophils % (Manual) 66 % Band Neutrophils % 15 % Lymphocytes % 15 % Monocytes % 4 % Neutrophils # (Manual) 10.0 TH/MM3 Platelet Estimate LOW Platelet Morphology Comment NORMAL Red Cell Morphology Comment NORMAL B-Type Natriuretic Peptide 70 PG/ML Lactic Acid Level 2.8 mmol/L Test 02/10/17 03:52 02/11/17 16:00 02/11/17 23:50 02/12/17 13:20 Triglycerides Level 152 MG/DL Cholesterol Level 72 MG/DL LDL Cholesterol 30 MG/DL HDL Cholesterol 11.4 MG/DL Cholesterol/HDL Ratio 6.31 RATIO Urine Color COLORLESS Urine Turbidity CLEAR Urine pH 7.0 Urine Specific Prospect 1.004 Urine Protein NEG mg/dL Urine Glucose (UA) 150 mg/dL Urine Ketones NEG mg/dL Urine Occult Blood TRACE Urine Nitrite NEG Urine Bilirubin NEG Urine Urobilinogen LESS THAN 2.0 MG/DL Urine Leukocyte Esterase SMALL Urine RBC 1 /hpf Urine WBC 9 /hpf Urine Bacteria RARE /hpf Microscopic Urinalysis Comment CULTURE INDICATED Stool C. difficile Toxin (PCR) NEGATIVE Stl C. difficile Toxin Epiderm 027 PRESUMPTIVE NEGATIVE Protein Corrected Calcium 7.4 MG/DL Blood Urea Nitrogen 10 MG/DL Creatinine 1.18 MG/DL Random Glucose 350 MG/DL Total Protein 6.2 GM/DL Albumin 1.6 GM/DL Calcium Level 6.9 MG/DL Phosphorus Level 3.0 MG/DL Magnesium Level 0.9 MG/DL Alkaline Phosphatase 83 U/L Aspartate Amino Transf (AST/SGOT) 25 U/L Alanine Aminotransferase (ALT/SGPT) 13 U/L Total Bilirubin 0.4 MG/DL Sodium Level 132 MEQ/L Potassium Level 2.6 MEQ/L Chloride Level 91 MEQ/L Carbon Dioxide Level 32.4 MEQ/L Test 02/13/17 12:35 White Blood Count 13.3 TH/MM3 Red Blood Count 4.10 MIL/MM3 Hemoglobin 11.7 GM/DL Hematocrit 35.6 % Mean Corpuscular Volume 86.8 FL Mean Corpuscular Hemoglobin 28.5 PG Mean Corpuscular Hemoglobin Concent 32.9 % Red Cell Distribution Width 13.4 % Platelet Count 213 TH/MM3 Mean Platelet Volume 8.3 FL Neutrophils (%) (Auto) 72.1 % Lymphocytes (%) (Auto) 17.4 % Monocytes (%) (Auto) 8.1 % Eosinophils (%) (Auto) 1.8 % Basophils (%) (Auto) 0.6 % Neutrophils # (Auto) 9.6 TH/MM3 Lymphocytes # (Auto) 2.3 TH/MM3 Monocytes # (Auto) 1.1 TH/MM3 Eosinophils # (Auto) 0.2 TH/MM3 Basophils # (Auto) 0.1 TH/MM3 CBC Comment DIFF FINAL Differential Comment Blood Urea Nitrogen 10 MG/DL Creatinine 1.00 MG/DL Random Glucose 229 MG/DL Total Protein 6.3 GM/DL Albumin 1.7 GM/DL Calcium Level 7.5 MG/DL Alkaline Phosphatase 83 U/L Aspartate Amino Transf (AST/SGOT) 30 U/L Alanine Aminotransferase (ALT/SGPT) 16 U/L Total Bilirubin 0.4 MG/DL Sodium Level 134 MEQ/L Potassium Level 3.4 MEQ/L Chloride Level 96 MEQ/L Carbon Dioxide Level 30.8 MEQ/L Anion Gap 7 MEQ/L Estimat Glomerular Filtration Rate 75 ML/MIN Magnesium Level 1.4 MG/DL Radiology Last Impressions Abdomen/Pelvis CT 02/12/17 0000 Signed Impressions: Service Date/Time: Sunday, February 12, 2017 15:32 - CONCLUSION: 1. Expected postsurgical features with minimally dilated loops of small bowel consistent with mild adynamic ileus. 2. Moderate simple appearing ascites. No focal drainable fluid collections. 3. Cirrhotic appearing liver with mild splenomegaly. 4. Stable additional ancillary findings, as above. Fredy Guzmán MD Abdomen X-Ray 02/12/17 0000 Signed Impressions: Service Date/Time: Sunday, February 12, 2017 15:22 - CONCLUSION: 1. Benign-appearing bowel gas pattern. 2. Degenerative changes of the lumbar spine. Natalio Way MD Chest X-Ray 02/11/17 0000 Signed Impressions: Service Date/Time: Saturday, February 11, 2017 14:24 - CONCLUSION: 1. Chronic appearing interstitial changes. Stable compared to previous exam. No definite pneumonia identified. Natalio Way MD Lower Extremity Ultrasound 02/07/17 0000 Signed Impressions: Service Date/Time: Tuesday, February 07, 2017 08:24 - CONCLUSION: Normal examination. No evidence of DVT Jamie Watters MD Last Impressions Chest X-Ray 02/11/17 0000 Signed Impressions: Service Date/Time: Saturday, February 11, 2017 14:24 - CONCLUSION: 1. Chronic appearing interstitial changes. Stable compared to previous exam. No definite pneumonia identified. Natalio Way MD Lower Extremity Ultrasound 02/07/17 0000 Signed Impressions: Service Date/Time: Tuesday, February 07, 2017 08:24 - CONCLUSION: Normal examination. No evidence of DVT Jamie Watters MD Abdomen X-Ray 02/01/17 0000 Signed Impressions: Service Date/Time: Wednesday, February 01, 2017 11:14 - CONCLUSION: 1. Air lucency in the upper abdomen concerning for possible free intraperitoneal air. 2. NG tube looped in the stomach. Attention been made to contact the surgical team. Vishal Brewer MD Abdomen/Pelvis CT 01/29/17 0000 Signed Impressions: Service Date/Time: Sunday, January 29, 2017 06:37 - CONCLUSION: 1. Suspected ischemic bowel process involving the terminal ileum and cecum which is associated with portal gas in the liver. 2. No evidence of organized abscess. 3. Mild hydronephrosis and distended urinary bladder. Kelby Laurent MD Cardiovascular: Regular Lungs: Clear Abdomen: Non-distended, Post-op tenderness, BS normal Extremities: No edema, Perfused A/P Problem List: (1) Status post small bowel resection ICD Codes: Z90.49 - Acquired absence of other specified parts of digestive tract Status: Acute (2) Ischemic necrosis of large intestine ICD Codes: K55.049 - Acute infarction of large intestine, extent unspecified Status: Resolved (3) Diabetes mellitus with hyperglycemia ICD Codes: E11.65 - Type 2 diabetes mellitus with hyperglycemia Status: Acute (4) Chronic obstructive pulmonary disease ICD Codes: J44.9 - Chronic obstructive pulmonary disease Status: Chronic (5) Chronic hepatitis C virus infection ICD Codes: B18.2 - Chronic viral hepatitis C Status: Chronic (6) Diabetic neuropathy ICD Codes: E11.40 - Diabetic neuropathy Status: Chronic (7) Hyponatremia ICD Codes: E87.1 - Hypo-osmolality and hyponatremia Status: Acute (8) Cirrhosis of liver ICD Codes: K74.60 - Hepatic cirrhosis Status: Chronic (9) COPD (chronic obstructive pulmonary disease) ICD Codes: J44.9 - Chronic obstructive pulmonary disease, unspecified Status: Acute (10) History of DVT (deep vein thrombosis) ICD Codes: Z86.718 - History of deep venous thrombosis Status: Chronic (11) History of major abdominal surgery ICD Codes: Z98.890 - Other specified postprocedural states Status: Chronic (12) Bladder cancer ICD Codes: C67.9 - Malignant neoplasm of bladder, unspecified Status: Chronic (13) CHF (congestive heart failure) ICD Codes: I50.9 - Heart failure, unspecified (14) Low blood magnesium ICD Codes: R79.0 - Abnormal level of blood mineral Status: Chronic (15) Chronically low serum potassium ICD Codes: E87.6 - Hypokalemia Status: Chronic (16) History of low potassium ICD Codes: Z86.39 - Personal history of other endocrine, nutritional and metabolic disease (17) Abnormal albumin ICD Codes: R77.0 - Abnormality of albumin Status: Chronic (18) DVT prophylaxis Status: Acute Assessment and Plan 66 year old male with ischemic bowel with Clostridium perfringens He has made a tremendous recovery No more nausea and vomiting Magnesium and potassium improved symptoms have improved His white count is coming down after starting Diflucan and CT scan negative. Patient does not have ileus as reported in the CT scan Continue medical management for his diabetes hypokalemia low magnesium. Continue antibiotic therapy and Diflucan therapy Anticipate discharge to rehabilitation facility He will not need a follow-up appointment in the office since all his cliff are then removed and his wound is healed Attending Statement NOTE FOR SURGICAL ATTENDING, DR. THEODORE JORDAN I attest that I had a [id number] encounter with the patient on the same day, and personally performed and documented my assessment and findings in the medical record. The following services were provided during this hospital visit: Chart data review, vital sign assessments/reviewing monitor data Review of consultations notes if present. Medication orders/review and/or management Ordering and/or reviewing lab tests Ordering and/or interpreting/reviewing x-rays and/or diagnostic studies Care of the patient and discussion of the patient with the care team Documentation time To help prompt me to consider important information that might be impacting today's encounter and assessment, information from prior notes written by myself or my colleagues may have been "brought forward/copy and pasted" into today's note. Theodore Jordan MD Feb 13, 2017 14:32
--- NOTE | 2017-02-13 14:59 | HHI.PR ---
Subjective Remarks Patient states that he feels great denies any further diarrhea and abdominal pain has resolved. denies fevers/chills denies nausea or vomiting Objective Vitals Vital Signs Date Time Temp Pulse Resp B/P (MAP) Pulse Ox O2 Delivery O2 Flow Rate FiO2 02/13/17 12:00 98.8 91 17 120/88 (99) 98 02/13/17 08:00 98.5 104 17 123/76 (92) 100 02/13/17 00:43 97.8 90 17 137/89 (105) 96 02/12/17 20:00 98.4 105 17 133/82 (99) 98 02/12/17 18:57 98 02/12/17 16:00 98.9 101 16 111/68 (82) 98 I/O 02/12/17 02/12/17 02/12/17 02/13/17 02/13/17 02/13/17 07:00 15:00 23:00 07:00 15:00 23:00 Intake Total 580 ml 820 ml 980 ml Balance 580 ml 820 ml 980 ml Intake Oral 580 ml 700 ml 780 ml IV Total 120 ml 200 ml # Voids 4 8 4 # Bowel Movements 4 6 4 Result Diagram: 02/13/17 1235 02/13/17 1235 Imaging Last Impressions Abdomen/Pelvis CT 02/12/17 0000 Signed Impressions: Service Date/Time: Sunday, February 12, 2017 15:32 - CONCLUSION: 1. Expected postsurgical features with minimally dilated loops of small bowel consistent with mild adynamic ileus. 2. Moderate simple appearing ascites. No focal drainable fluid collections. 3. Cirrhotic appearing liver with mild splenomegaly. 4. Stable additional ancillary findings, as above. Fredy Guzmán MD Abdomen X-Ray 02/12/17 0000 Signed Impressions: Service Date/Time: Sunday, February 12, 2017 15:22 - CONCLUSION: 1. Benign-appearing bowel gas pattern. 2. Degenerative changes of the lumbar spine. Natalio Way MD Chest X-Ray 02/11/17 0000 Signed Impressions: Service Date/Time: Saturday, February 11, 2017 14:24 - CONCLUSION: 1. Chronic appearing interstitial changes. Stable compared to previous exam. No definite pneumonia identified. Natalio Way MD Lower Extremity Ultrasound 02/07/17 0000 Signed Impressions: Service Date/Time: Tuesday, February 07, 2017 08:24 - CONCLUSION: Normal examination. No evidence of DVT Jamie Watters MD Objective Remarks GENERAL: Alert, oriented 3, nad, sitting in chair. SKIN: Warm and dry. HEAD: Normocephalic. EYES: No scleral icterus. No injection or drainage. NECK: Supple, trachea midline. No JVD or lymphadenopathy. CARDIOVASCULAR: Reg rhythm, tachycardic without murmurs, gallops, or rubs. RESPIRATORY: Breath sounds equal bilaterally. No accessory muscle use. GASTROINTESTINAL: Abdomen soft, nondistended. MUSCULOSKELETAL: No cyanosis. 1+ edema in bilateral ext. BACK: Nontender without obvious deformity. No CVA tenderness. Procedures 01/29/2017 PROCEDURE 1. Exploratory laparotomy, lysis of adhesions. 2. Right colon resection 3. small bowel resection about the 20 cm distal ileum. 4. Application of temporary abdominal wound closure device. 01/31/2017 PROCEDURE 1. Removal of temporary abdominal closure device. 2. Abdominal washout. 3. Repositioning of NG tube to allow adequate drainage of the abdominal gastric contents. 4. Retrograde emptying of entirety of the small bowel into the stomach for decompression. 5. Resection of distal terminal ileum to obtain clear margins for pathology report to completely normal-looking peristaltic small bowel. 6. Anastomosis of ileum to proximal transverse colon in a [id number] functional end-to-end anastomosis. 7. Abdominal wound closure. Echo 02/08/2017 The left ventricular systolic function is moderately reduced with an estimated ejection fraction in the range of 40-45% (visually near 45%), mild global hypokinesis Normal left ventricular size. Mild mitral valve regurgitation. Medications and IVs Current Medications Medications (Trade) Dose Ordered Sig/Jaya Route Start Time Stop Time Status Last Admin (NS Flush) 2 ml UNSCH PRN IV FLUSH 01/29/17 05:15 02/09/17 06:53 (Zofran Inj) 4 mg Q6H PRN IV PUSH 01/29/17 07:45 02/12/17 06:37 (Duoneb Neb) 1 ampule Q4HR NEB PRN INH 01/29/17 07:45 Miscellaneous Information 1 Q361D XX 01/29/17 07:45 (Chlorhexidine 2% Cloth) Taper DAILY@04 TOP 01/30/17 04:00 9/10/18 03:59 (Chlorhexidine 2% Cloth) 3 pack UNSCH PRN TOP 01/29/17 07:45 (D50w (Vial) Inj) 50 ml UNSCH PRN IV 01/30/17 08:45 (Glucagon Inj) 1 mg UNSCH PRN OTHER 01/30/17 08:45 (NovoLOG SUPPLEMENTAL SCALE) 1 Q4H SQ 01/30/17 10:00 02/13/17 15:55 (Apresoline Inj) 10 mg Q2H PRN IV PUSH 01/30/17 17:30 (Heparin Inj) 5,000 units Q8HR SQ 02/02/17 14:00 02/13/17 04:35 (Protonix) 20 mg DAILY PO 02/05/17 09:00 02/13/17 08:57 (Vasotec Inj) 2.5 mg Q6H PRN IV PUSH 02/06/17 01:45 02/06/17 03:52 (Lactinex) 1 tab TID PO 02/06/17 13:00 02/13/17 17:08 (Lopressor) 25 mg Q12HR PO 02/08/17 09:00 02/13/17 08:56 (Phazyme Chew) 125 mg Q6H PO 02/08/17 21:00 02/13/17 15:51 (Prinivil) 10 mg DAILY PO 02/10/17 09:00 02/13/17 08:57 (Demadex) 10 mg BID@09,18 PO 02/09/17 18:00 02/13/17 17:08 (Lipitor) 40 mg HS PO 02/10/17 21:00 02/12/17 20:27 (Dilaudid) 2 mg Q4H PRN PO 02/12/17 11:00 02/13/17 17:19 (Imodium) 2 mg Q6H PRN PO 02/12/17 12:00 02/12/17 20:26 (Diflucan) 200 mg DAILY PO 02/13/17 09:00 02/13/17 08:55 Magnesium Sulfate/ Dextrose 100 ml @ 100 mls/hr Q1H IV 02/13/17 16:00 02/13/17 17:59 02/13/17 17:09 (Levemir Inj) 10 units Q12HR SQ 02/13/17 21:00 (NovoLOG INJ) 6 units TIDAC SQ 02/13/17 17:00 02/13/17 17:09 A/P Problem List: (1) Acute intestinal ischemic syndrome ICD Code: K55.059 - Acute (reversible) ischemia of intestine, part and extent unspecified (2) Diabetes ICD Code: E11.9 - Diabetes mellitus Status: Acute (3) Hypomagnesemia ICD Code: E83.42 - Hypomagnesemia Status: Acute (4) Hypokalemia ICD Code: E87.6 - Hypokalemia Status: Acute (5) Electrolyte abnormality ICD Code: E87.8 - Other disorders of electrolyte and fluid balance, not elsewhere classified Status: Acute (6) Cirrhosis of liver ICD Code: K74.60 - Hepatic cirrhosis Status: Chronic (7) Diarrhea ICD Code: R19.7 - Diarrhea, unspecified Status: Resolved Assessment and Plan Mr. 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 CT abdomen pelvis indicated ischemic bowel. Patient's blood sugar was around 1200 on admission. Patient underwent surgical intervention by general surgery including exploratory laparoscopy, lysis of adhesions and right colon resection as well as small bowel resection. Infectious disease was consulted and kept patient on Zosyn. - Ischemic bowel - schemic bowel sp resection and subsequnt anastomocsis - Clostridia perfringens present in surg margins - Status post right colon resection as well as a small bowel resection. - D/C IV dilaudid that was used for breakthrough pain. - Continue Dilaudid PO 2mg Q4hrs PRN. - Surgery following. - Treated with Zosyn. WBC increased from 9.4 --> 15 --> 14. - Discussed with ID (both Dr. Rowell and Dr. JOYNER). - Due to low grade fever, and persistent leukocytosis above 12K, after discussing with ID, we will do the following: - CXR, UA - Discontinue all IV Access to rule out IV access related infection - D/C Zosyn and start PO Augmentin - CXR shows chronic appearing interstitial changes. UA positive and urine culture. Continue Flucionazole. UA is growing Chiara tropicalis. - Acute systolic congestive heart failure - Likely due to long standing hypertension. - He does have bilateral leg swelling, negative for DVT. - CXR is also indicative for CHF. 2D echo shows EF 40-45% - Continue metoprolol 25 mg Q12hrs, Continue Lisinopril 10mg Qday. - Continue Torsemide 10mg BID. - Diabetes mellitus - Levemir 10 units daily at bedtime. Continue sliding scale insulin. - 02/13 Blood sugars elevated more than 200. Will ioncrase Levemir to 10 units SQ BID and premeal insulin to 6 units TIDAC. Hyperlipidemia - His ASCVD score is over 37% and would benefit from mod to high dose statin. - Continue Lipitor 40mg QHS. - Acute kidney injury - resolved. Creatinine on admission 3.2 and currently < 1.0 - History of hepatitis B and C. - History of liver cirrhosis - No acute concerns. - Outpatient follow-up. - Hypokalemia - K improved. Potassium level 3.4 - replace orally and continue BMP. - Hypocalcemia - sp repletion with IV Calcium Chloride. Now resolved. - Hypomagnesemia: Magnesium better from 0.9 to 1.4 however still low. Will give IV Magnesium Sulfate. - Leukocytosis: WBC trending down. Likely elevated 2/2 UTI. WBC trending down after patient started on Fluconazole. Contimue. - Diarrhea: C diff negative. Much improved with Imodium. Full code. Heparin subcutaneous. Discharge Planning Continue to monitor in the medical floor. Dc pending correction of electrolyte abnormality. Patient may be discharged to home with home health. Problem Qualifiers (1) Diabetes: Qualified Codes: E11.65 - Type 2 diabetes mellitus with hyperglycemia David Braswell MD Feb 13, 2017 14:59
[2017-02-13] MEDS: MAGNESIUM SULFATE 1 GM PREMIX 100 ML IV SCH ×2 (15:51→17:09)
[2017-02-13 16:00] VITALS: BP 107/65; PULSE 95; RESP 18; TEMP 96.7; O2SAT 98
[2017-02-13] MEDS ORDERED: INSULIN ASPART 1,000 UNITS/10 ML VIAL SQ SCH (17:00)
[2017-02-13 20:00] VITALS: BP 104/68; PULSE 104; RESP 18; TEMP 99.2; O2SAT 97
[2017-02-13] MEDS: ATORVASTATIN 40 MG TAB PO SCH (21:00)
[2017-02-13] MEDS: INSULIN DETEMIR 100 UNITS/ML VIAL SQ SCH (21:01)
[2017-02-14] VITALS: BP 116/63; PULSE 98; RESP 17; TEMP 97.7; O2SAT 97
[2017-02-14] MEDS: INSULIN ASPART SUPPLEMENTAL SCALE SQ SCH ×3 (00:33→11:57)
[2017-02-14] MEDS: SIMETHICONE 125 MG CHEWABLE TAB PO SCH ×2 (01:32→09:15)
[2017-02-14] MEDS: HYDROmorphone HCL 2 MG TAB PO PRN ×2 (01:35→05:58)
[2017-02-14] MEDS: CHLORHEXIDINE GLUCONATE 2 % 1 PACK (2 CLOTHS) TOP SCH (04:00)
[2017-02-14] MEDS: HEPARIN SODIUM - SQ 10,000 UNITS/ML VIAL SQ SCH (05:57)
[2017-02-14 06:09] LABS: AUTOMATED NEUTROPHIL # 7.9 TH/MM3 (1.8-7.7); BASOPHIL # 0.1 TH/MM3 (0-0.2); BASOPHIL % 0.7 % (0.0-2.0); EOSINOPHIL # 0.2 TH/MM3 (0-0.4); EOSINOPHIL % 1.9 % (0.0-4.0); HEMATOCRIT 33.7 % (39.0-51.0); HEMO FLAGS DIFF FINAL; LYMPH % 23.5 % (9.0-44.0); LYMPHOCYTE # 2.9 TH/MM3 (1.0-4.8); MEAN CELL VOLUME 87.4 FL (80.0-100.0); MEAN CORPUSCULAR HEMOGLOBIN 29.3 PG (27.0-34.0); MEAN CORPUSCULAR HGB CONC 33.6 % (32.0-36.0); MONO % 9.8 % (0.0-8.0); NEUT % 64.1 % (16.0-70.0); PLATELET COUNT 210 TH/MM3 (150-450); RED BLOOD COUNT 3.86 MIL/MM3 (4.50-5.90); RED CELL DISTRIBUTION WIDTH 13.3 % (11.6-17.2); WHITE BLOOD COUNT 12.3 TH/MM3 (4.0-11.0)
[2017-02-14 06:30] LABS: ALT (GPT) 28 U/L (12-78); ANION GAP 9 MEQ/L (5-15); AST (GOT) 45 U/L (15-37); BICARBONATE 28.2 MEQ/L (21.0-32.0); BLOOD UREA NITROGEN 14 MG/DL (7-18); CHLORIDE 97 MEQ/L (98-107); GLOMERULAR FILTRATION RATE 63 ML/MIN (>89); MAGNESIUM 1.7 MG/DL (1.5-2.5); SODIUM (NA) 134 MEQ/L (136-145)
[2017-02-14 06:33] LABS: ALKALINE PHOSPHATASE 92 U/L (45-117); TOTAL BILIRUBIN ADULT 0.5 MG/DL (0.2-1.0)
[2017-02-14 08:00] VITALS: BP 119/78; PULSE 105; RESP 16; TEMP 99; O2SAT 99
[2017-02-14] MEDS: INSULIN ASPART 1,000 UNITS/10 ML VIAL SQ SCH (08:00)
[2017-02-14] MEDS: INSULIN DETEMIR 100 UNITS/ML VIAL SQ SCH (09:00)
[2017-02-14] MEDS: TORSEMIDE 5 MG TAB PO SCH (09:14)
[2017-02-14] MEDS: PANTOPRAZOLE SOD 20 MG DELAYED RELEASE TAB PO SCH (09:14)
[2017-02-14] MEDS: METOPROLOL TARTRATE 25 MG TAB PO SCH (09:14)
[2017-02-14] MEDS: FLUCONAZOLE 200 MG TAB PO SCH (09:15)
[2017-02-14] MEDS: LISINOPRIL 10 MG TAB PO SCH (09:15)
[2017-02-14] MEDS: LACTOBACILLUS ACIDOPHILUS TAB PO SCH ×2 (09:15→11:56)
--- NOTE | 2017-02-14 10:22 | HHI.PR ---
Subjective Subjective Notes Feeling great Very thankful for the care Ready to go to rehab Objective Vitals/I&O Vital Signs Date Time Temp Pulse Resp B/P (MAP) Pulse Ox O2 Delivery O2 Flow Rate FiO2 02/14/17 08:00 99.0 105 16 119/78 (92) 99 Labs Laboratory Tests Test 02/13/17 12:35 02/14/17 05:31 White Blood Count 13.3 12.3 Red Blood Count 4.10 3.86 Hemoglobin 11.7 11.3 Hematocrit 35.6 33.7 Mean Corpuscular Volume 86.8 87.4 Mean Corpuscular Hemoglobin 28.5 29.3 Mean Corpuscular Hemoglobin Concent 32.9 33.6 Red Cell Distribution Width 13.4 13.3 Platelet Count 213 210 Mean Platelet Volume 8.3 8.6 Neutrophils (%) (Auto) 72.1 64.1 Lymphocytes (%) (Auto) 17.4 23.5 Monocytes (%) (Auto) 8.1 9.8 Eosinophils (%) (Auto) 1.8 1.9 Basophils (%) (Auto) 0.6 0.7 Neutrophils # (Auto) 9.6 7.9 Lymphocytes # (Auto) 2.3 2.9 Monocytes # (Auto) 1.1 1.2 Eosinophils # (Auto) 0.2 0.2 Basophils # (Auto) 0.1 0.1 CBC Comment DIFF FINAL DIFF FINAL Differential Comment Blood Urea Nitrogen 10 14 Creatinine 1.00 1.17 Random Glucose 229 192 Total Protein 6.3 6.9 Albumin 1.7 2.0 Calcium Level 7.5 7.5 Alkaline Phosphatase 83 92 Aspartate Amino Transf (AST/SGOT) 30 45 Alanine Aminotransferase (ALT/SGPT) 16 28 Total Bilirubin 0.4 0.5 Sodium Level 134 134 Potassium Level 3.4 4.0 Chloride Level 96 97 Carbon Dioxide Level 30.8 28.2 Anion Gap 7 9 Estimat Glomerular Filtration Rate 75 63 Magnesium Level 1.4 1.7 Phosphorus Level 2.8 Date/Time Source Procedure Growth Status 01/29/17 06:50 Blood Peripheral Aerobic Blood Culture - Final NO GROWTH IN 5 DAYS Complete 01/29/17 06:50 Blood Peripheral Anaerobic Blood Culture - Final NO GROWTH IN 5 DAYS Complete 02/11/17 16:00 Urine Clean Catch Urine Culture - Final Chiara Tropicalis Complete Radiology Last Impressions Abdomen/Pelvis CT 02/12/17 0000 Signed Impressions: Service Date/Time: Sunday, February 12, 2017 15:32 - CONCLUSION: 1. Expected postsurgical features with minimally dilated loops of small bowel consistent with mild adynamic ileus. 2. Moderate simple appearing ascites. No focal drainable fluid collections. 3. Cirrhotic appearing liver with mild splenomegaly. 4. Stable additional ancillary findings, as above. Fredy Guzmán MD Abdomen X-Ray 02/12/17 0000 Signed Impressions: Service Date/Time: Sunday, February 12, 2017 15:22 - CONCLUSION: 1. Benign-appearing bowel gas pattern. 2. Degenerative changes of the lumbar spine. Natalio Way MD Chest X-Ray 02/11/17 0000 Signed Impressions: Service Date/Time: Saturday, February 11, 2017 14:24 - CONCLUSION: 1. Chronic appearing interstitial changes. Stable compared to previous exam. No definite pneumonia identified. Natalio Way MD Lower Extremity Ultrasound 02/07/17 0000 Signed Impressions: Service Date/Time: Tuesday, February 07, 2017 08:24 - CONCLUSION: Normal examination. No evidence of DVT Jamie Watters MD Last Impressions Chest X-Ray 02/11/17 0000 Signed Impressions: Service Date/Time: Saturday, February 11, 2017 14:24 - CONCLUSION: 1. Chronic appearing interstitial changes. Stable compared to previous exam. No definite pneumonia identified. Natalio Way MD Lower Extremity Ultrasound 02/07/17 0000 Signed Impressions: Service Date/Time: Tuesday, February 07, 2017 08:24 - CONCLUSION: Normal examination. No evidence of DVT Jamie Watters MD Abdomen X-Ray 02/01/17 0000 Signed Impressions: Service Date/Time: Wednesday, February 01, 2017 11:14 - CONCLUSION: 1. Air lucency in the upper abdomen concerning for possible free intraperitoneal air. 2. NG tube looped in the stomach. Attention been made to contact the surgical team. Vishal Brewer MD Abdomen/Pelvis CT 01/29/17 0000 Signed Impressions: Service Date/Time: Sunday, January 29, 2017 06:37 - CONCLUSION: 1. Suspected ischemic bowel process involving the terminal ileum and cecum which is associated with portal gas in the liver. 2. No evidence of organized abscess. 3. Mild hydronephrosis and distended urinary bladder. Kelby Laurent MD Cardiovascular: Regular Lungs: Clear Abdomen: Other (midline incision healing; cliff out; soft minimally tender in RLQ ) Extremities: No edema A/P Problem List: (1) Status post small bowel resection ICD Codes: Z90.49 - Acquired absence of other specified parts of digestive tract Status: Acute (2) Ischemic necrosis of large intestine ICD Codes: K55.049 - Acute infarction of large intestine, extent unspecified Status: Resolved (3) Diabetes mellitus with hyperglycemia ICD Codes: E11.65 - Type 2 diabetes mellitus with hyperglycemia Status: Acute (4) Chronic obstructive pulmonary disease ICD Codes: J44.9 - Chronic obstructive pulmonary disease Status: Chronic (5) Chronic hepatitis C virus infection ICD Codes: B18.2 - Chronic viral hepatitis C Status: Chronic (6) Diabetic neuropathy ICD Codes: E11.40 - Diabetic neuropathy Status: Chronic (7) Hyponatremia ICD Codes: E87.1 - Hypo-osmolality and hyponatremia Status: Acute (8) Cirrhosis of liver ICD Codes: K74.60 - Hepatic cirrhosis Status: Chronic (9) COPD (chronic obstructive pulmonary disease) ICD Codes: J44.9 - Chronic obstructive pulmonary disease, unspecified Status: Acute (10) History of DVT (deep vein thrombosis) ICD Codes: Z86.718 - History of deep venous thrombosis Status: Chronic (11) History of major abdominal surgery ICD Codes: Z98.890 - Other specified postprocedural states Status: Chronic (12) Bladder cancer ICD Codes: C67.9 - Malignant neoplasm of bladder, unspecified Status: Chronic (13) CHF (congestive heart failure) ICD Codes: I50.9 - Heart failure, unspecified (14) Low blood magnesium ICD Codes: R79.0 - Abnormal level of blood mineral Status: Chronic (15) Chronically low serum potassium ICD Codes: E87.6 - Hypokalemia Status: Chronic (16) History of low potassium ICD Codes: Z86.39 - Personal history of other endocrine, nutritional and metabolic disease (17) Abnormal albumin ICD Codes: R77.0 - Abnormality of albumin Status: Chronic (18) DVT prophylaxis Status: Acute Assessment and Plan 66 year old male with ischemic bowel -s/p Anastomosis from small bowel to transverse colon for resection of ischemic bowel -WBC continues to trend down -ID following -Pain control -Regular diet -Glucose control -OOB as tolerated -IS -GS clear for Mary Perze Feb 14, 2017 10:22 Theodore Jordan MD Feb 14, 2017 16:09
[2017-02-14] MEDS ORDERED: DIFL200T PO (12:20)
[2017-02-14] MEDS ORDERED: DILA2TAB2 PO (12:22)
--- NOTE | 2017-02-14 12:26 | HHI.DCPOC ---
Discharge Care Plan Diagnosis: (1) Acute systolic (congestive) heart failure (2) Clostridium perfringens infection (3) ELENA (acute kidney injury) (4) Ischemia, bowel (5) Ischemic necrosis of large intestine (6) Diabetes mellitus with hyperglycemia (7) Diabetes (8) Hypokalemia (9) Hypomagnesemia (10) Electrolyte abnormality (11) Status post small bowel resection (12) Cirrhosis of liver (13) Hepatitis C Goals to Promote Your Health * To prevent worsening of your condition and complications * To maintain your health at the optimal level Directions to Meet Your Goals Take your medications as prescribed Follow your dietary instruction Follow activity as directed Keep your appointments as scheduled Take your immunizations and boosters as scheduled If your symptoms worsen call your PCP, if no PCP go to Urgent Care Center or Emergency Room Smoking is Dangerous to Your Health. Avoid second hand smoke Call the 24-hour hour crisis hotline for domestic abuse at David Braswell MD Feb 14, 2017 12:26
--- NOTE | 2017-02-14 12:34 | HHI.DS ---
Discharge Summary Admission Date Jan 29, 2017 at 07:26 Discharge Date: Feb 14, 2017 Admitting Diagnosis Hyperosmolar, Nonketotic Syndrome. Exclude ischemic bowel. (1) Acute intestinal ischemic syndrome ICD Code: K55.059 - Acute (reversible) ischemia of intestine, part and extent unspecified Diagnosis: Principal Status: Resolved (2) Diabetes ICD Code: E11.9 - Diabetes mellitus Diagnosis: Principal Status: Chronic (3) Hypomagnesemia ICD Code: E83.42 - Hypomagnesemia Diagnosis: Principal Status: Resolved (4) Hypokalemia ICD Code: E87.6 - Hypokalemia Diagnosis: Principal Status: Resolved (5) Electrolyte abnormality ICD Code: E87.8 - Other disorders of electrolyte and fluid balance, not elsewhere classified Diagnosis: Principal Status: Resolved (6) Cirrhosis of liver ICD Code: K74.60 - Hepatic cirrhosis Diagnosis: Secondary Status: Chronic (7) Diarrhea ICD Code: R19.7 - Diarrhea, unspecified Diagnosis: Principal Status: Resolved Procedures 01/29/2017 PROCEDURE 1. Exploratory laparotomy, lysis of adhesions. 2. Right colon resection 3. small bowel resection about the 20 cm distal ileum. 4. Application of temporary abdominal wound closure device. 01/31/2017 PROCEDURE 1. Removal of temporary abdominal closure device. 2. Abdominal washout. 3. Repositioning of NG tube to allow adequate drainage of the abdominal gastric contents. 4. Retrograde emptying of entirety of the small bowel into the stomach for decompression. 5. Resection of distal terminal ileum to obtain clear margins for pathology report to completely normal-looking peristaltic small bowel. 6. Anastomosis of ileum to proximal transverse colon in a [id number] functional end-to-end anastomosis. 7. Abdominal wound closure. Echo 02/08/2017 The left ventricular systolic function is moderately reduced with an estimated ejection fraction in the range of 40-45% (visually near 45%), mild global hypokinesis Normal left ventricular size. Mild mitral valve regurgitation. Brief History - From Admission 66 y/o homeless man presents to [facility] with abdominal pain. Hx of cirrhosis with varices and bleeds. Pancreatitis and ERCP in past. Presents with glucose 1200 and normal bicarb. beta-hydroxybutyrate < 1.0. CT abdomen with portal vein air and suspicious cecum wall, likely early necrosis. On arrival to [facility] he has peritoneal irritation right side abdomen. Surgical history: 1. 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 2. Spleen repair. 3. Appendectomy. 4. Cholecystectomy CBC/BMP: 02/14/17 0531 02/14/17 0531 Significant Findings Laboratory Tests Test 02/11/17 16:00 02/11/17 23:50 02/12/17 13:20 02/12/17 23:58 Urine Glucose (UA) 150 mg/dL (NEG) Urine Occult Blood TRACE (NEG) Urine Leukocyte Esterase SMALL (NEG) Urine WBC 9 /hpf (0-5) Urine Bacteria RARE /hpf (NONE) White Blood Count 13.6 TH/MM3 (4.0-11.0) Red Blood Count 4.30 MIL/MM3 (4.50-5.90) Hemoglobin 12.5 GM/DL (13.0-17.0) Hematocrit 37.6 % (39.0-51.0) Neutrophils (%) (Auto) 77.4 % (16.0-70.0) Monocytes (%) (Auto) 8.4 % (0.0-8.0) Neutrophils # (Auto) 10.5 TH/MM3 (1.8-7.7) Monocytes # (Auto) 1.1 TH/MM3 (0-0.9) Random Glucose 350 MG/DL (74-106) 157 MG/DL (74-106) Total Protein 6.2 GM/DL (6.4-8.2) Albumin 1.6 GM/DL (3.4-5.0) Calcium Level 6.9 MG/DL (8.5-10.1) 8.1 MG/DL (8.5-10.1) Magnesium Level 0.9 MG/DL (1.5-2.5) Sodium Level 132 MEQ/L (136-145) Potassium Level 2.6 MEQ/L (3.5-5.1) 3.1 MEQ/L (3.5-5.1) Chloride Level 91 MEQ/L (98-107) 96 MEQ/L (98-107) Carbon Dioxide Level 32.4 MEQ/L (21.0-32.0) 32.3 MEQ/L (21.0-32.0) Estimat Glomerular Filtration Rate 62 ML/MIN (>89) 78 ML/MIN (>89) Protein Corrected Calcium 7.4 MG/DL (8.5-10.1) Test 02/13/17 12:35 02/14/17 05:31 White Blood Count 13.3 TH/MM3 (4.0-11.0) 12.3 TH/MM3 (4.0-11.0) Red Blood Count 4.10 MIL/MM3 (4.50-5.90) 3.86 MIL/MM3 (4.50-5.90) Hemoglobin 11.7 GM/DL (13.0-17.0) 11.3 GM/DL (13.0-17.0) Hematocrit 35.6 % (39.0-51.0) 33.7 % (39.0-51.0) Neutrophils (%) (Auto) 72.1 % (16.0-70.0) Monocytes (%) (Auto) 8.1 % (0.0-8.0) 9.8 % (0.0-8.0) Neutrophils # (Auto) 9.6 TH/MM3 (1.8-7.7) 7.9 TH/MM3 (1.8-7.7) Monocytes # (Auto) 1.1 TH/MM3 (0-0.9) 1.2 TH/MM3 (0-0.9) Random Glucose 229 MG/DL (74-106) 192 MG/DL (74-106) Total Protein 6.3 GM/DL (6.4-8.2) Albumin 1.7 GM/DL (3.4-5.0) 2.0 GM/DL (3.4-5.0) Calcium Level 7.5 MG/DL (8.5-10.1) 7.5 MG/DL (8.5-10.1) Sodium Level 134 MEQ/L (136-145) 134 MEQ/L (136-145) Potassium Level 3.4 MEQ/L (3.5-5.1) Chloride Level 96 MEQ/L (98-107) 97 MEQ/L (98-107) Estimat Glomerular Filtration Rate 75 ML/MIN (>89) 63 ML/MIN (>89) Magnesium Level 1.4 MG/DL (1.5-2.5) Aspartate Amino Transf (AST/SGOT) 45 U/L (15-37) Imaging Last Impressions Abdomen/Pelvis CT 02/12/17 0000 Signed Impressions: Service Date/Time: Sunday, February 12, 2017 15:32 - CONCLUSION: 1. Expected postsurgical features with minimally dilated loops of small bowel consistent with mild adynamic ileus. 2. Moderate simple appearing ascites. No focal drainable fluid collections. 3. Cirrhotic appearing liver with mild splenomegaly. 4. Stable additional ancillary findings, as above. Fredy Guzmán MD Abdomen X-Ray 02/12/17 0000 Signed Impressions: Service Date/Time: Sunday, February 12, 2017 15:22 - CONCLUSION: 1. Benign-appearing bowel gas pattern. 2. Degenerative changes of the lumbar spine. Natalio Way MD Chest X-Ray 02/11/17 0000 Signed Impressions: Service Date/Time: Saturday, February 11, 2017 14:24 - CONCLUSION: 1. Chronic appearing interstitial changes. Stable compared to previous exam. No definite pneumonia identified. Natalio Way MD Lower Extremity Ultrasound 02/07/17 0000 Signed Impressions: Service Date/Time: Tuesday, February 07, 2017 08:24 - CONCLUSION: Normal examination. No evidence of DVT Jamie Watters MD PE at Discharge GENERAL: Alert, oriented 3, nad, sitting in chair. SKIN: Warm and dry. HEAD: Normocephalic. EYES: No scleral icterus. No injection or drainage. NECK: Supple, trachea midline. No JVD or lymphadenopathy. CARDIOVASCULAR: Reg rhythm, tachycardic without murmurs, gallops, or rubs. RESPIRATORY: Breath sounds equal bilaterally. No accessory muscle use. GASTROINTESTINAL: Abdomen soft, nondistended. MUSCULOSKELETAL: No cyanosis. 1+ edema in bilateral ext. BACK: Nontender without obvious deformity. No CVA tenderness. Pt update on day of discharge The patient denies abdominal pain, nausea or vomiting. Denies fevers or chills , denies cough, denies chest pain or shortness of breath. Patient very grateful for all the care provided. Hospital Course The patient presented with ischemic bowel for which the patient underwent resection and subsequent anastomosis. Robby perfringens was present in the surgical margins. The patient was treated with IV Zosyn initially and ID was consulted. As per the documentation the case was discussed with Dr. Rowell and Dr. JOYNER. Chest x-ray was obtained with did not show any infiltrate, UA was positive and urine culture grew Chiara tropicalis. The patient was then started on oral fluconazole for which he will complete 7 days of treatment. The patient also went into acute systolic congestive heart failure which is probably secondary to long-standing hypertension. Patient had bilateral leg swelling which resolved after treating the congestive heart failure with torsemide. The patient was treated with metoprolol 25 mg every 12 hours, lisinopril 10 mg daily and torsemide 10 mg twice a day. Diabetes mellitus was uncontrolled with hyperglycemia and blood sugars in the 200s. The patient was placed on Levemir and prandial insulin. Initially the patient was on Levemir 10 units daily at bedtime as well as 5 units 3 times a day before meals along with sliding scale with insulin NovoLog. However blood sugar was still elevated and the Levemir dose was increased to 10 units subcutaneous twice a day and insulin NovoLog increased to 6 units 3 times a day before meals. Patient's lipid profile was obtained and the patient had an ASCVD score over 37% so he was started on Lipitor 40 mg daily at bedtime. Acute kidney injury, likely prerenal resolved with IV fluid administration. Patient had a history of hepatitis B and C and history of liver cirrhosis which seemed to be stable at the B follow-up as an outpatient. Patient had several electrolytes that were abnormal including hypokalemia, hypocalcemia, hypomagnesemia which were repleted with potassium, IV calcium chloride and IV magnesium sulfate. On day of discharge these electrolytes are corrected. Patient's leukocytosis started trending down after the patient was started on treatment for UTI with oral fluconazole. Patient also had an episode of diarrhea which was C. difficile negative. Imodium was started with resolution of diarrhea. The patient remained full code during hospitalization and heparin subcutaneous was administered for DVT prophylaxis. Pt Condition on Discharge: Stable Discharge Disposition: Discharge to SNF Discharge Time: > 30 minutes Discharge Instructions Follow up Referrals: Surgical - 10 Days with Theodore Jordan MD New Medications: Fluconazole (Diflucan) 200 Mg Tab 200 MG PO DAILY for Infection, #7 TAB Continued Medications: Albuterol 8.5 GM Inh (Proair Hfa 8.5 GM Inh) 90 Mcg/Act Aer 1 PUFF INH Q4H PRN for SHORTNESS OF BREATH, #1 INHALER 0 Refills 108 mcg/actuation Budesonide-Formoterol Inh (Symbicort Inh) 160-4.5 Mcg/Act Aero 1 PUFF INH Q12HR, #1 INHALER 0 Refills Gabapentin (Gabapentin) 100 Mg Cap 100 MG PO TID, #90 CAP 0 Refills Gemfibrozil (Gemfibrozil) 600 Mg Tab 600 MG PO BIDAC, #60 TAB 0 Refills Take 30 minutes prior to breakfast and dinner. Btslyaiswbz-Fwaquinptik-Szs C- (Glucosamine Chondroitin) 1 Tab Tab 1 TAB PO BID Hydromorphone (Dilaudid) 2 Mg Tab 2 MG PO Q6H PRN for PAIN SCALE 1 TO 10, #30 TAB 0 Refills (This prescription has been renewed) Insulin Aspart Inj (Novolog Inj) 1,000 Unit/10 Ml Vial 2-12 UNITS SQ ACHS for Blood Sugar Management, #10 ML 0 Refills Max dose at bedtime ( ) units; sugars less than 70,(0) units; sugars 150-199,(2) units; sugars 200-249,(4) units; sugars 250-299,(7) units; sugars 300-349,(10) units; sugars greater than 349,(12)units Insulin Detemir Inj (Levemir Inj) 1,000 unit/ 10 ML Vial 30 UNITS SQ HS for Blood Sugar Management, #1 VIAL 0 Refills Please make a follow-up appointment in 3-4 weeks for further Rx renewals. Do not mix with any other Insulin. Linagliptin (Tradjenta) 5 Mg Tab 5 MG PO DAILY for Blood Sugar Management, #30 TAB 3 Refills Lisinopril (Lisinopril) 10 Mg Tab 10 MG PO DAILY, #30 TAB 0 Refills [place]-3 Fatty Acids (Fish Oil) 1,000 Mg Cap 1 CAP PO BID Pioglitazone (Pioglitazone) 15 Mg Tab 15 MG PO DAILY for Blood Sugar Management, #30 TAB 3 Refills David Braswell MD Feb 14, 2017 12:34
--- NOTE | 2017-02-14 15:23 | HHI.IDPN ---
Subjective Subjective Remarks Delayed entry Pt seen and examined around 11 am doing well no abdominal pain, resolved diarrhea, nasue vomiting afebrile WBC down to 12K C.diff neg Antibiotics Allergies: Coded Allergies: Iodinated Contrast- Oral and IV Dye (Unverified Allergy, Severe, rash/ flush, 01/29/17) butorphanol (Unverified Allergy, Severe, rash, 01/29/17) codeine (Unverified Allergy, Severe, breathing probs, 01/29/17) pentazocine (Unverified Allergy, Severe, breathing probs, 01/29/17) Objective . Vital Signs Date Time Temp Pulse Resp B/P (MAP) Pulse Ox O2 Delivery O2 Flow Rate FiO2 02/14/17 08:00 99.0 105 16 119/78 (92) 99 02/14/17 00:00 97.7 98 17 116/63 (80) 97 02/13/17 20:00 99.2 104 18 104/68 (80) 97 02/13/17 16:00 96.7 95 18 107/65 (79) 98 . Laboratory Tests Test 02/13/17 12:35 02/14/17 05:31 White Blood Count 13.3 TH/MM3 12.3 TH/MM3 Red Blood Count 4.10 MIL/MM3 3.86 MIL/MM3 Hemoglobin 11.7 GM/DL 11.3 GM/DL Hematocrit 35.6 % 33.7 % Mean Corpuscular Volume 86.8 FL 87.4 FL Mean Corpuscular Hemoglobin 28.5 PG 29.3 PG Mean Corpuscular Hemoglobin Concent 32.9 % 33.6 % Red Cell Distribution Width 13.4 % 13.3 % Platelet Count 213 TH/MM3 210 TH/MM3 Mean Platelet Volume 8.3 FL 8.6 FL Neutrophils (%) (Auto) 72.1 % 64.1 % Lymphocytes (%) (Auto) 17.4 % 23.5 % Monocytes (%) (Auto) 8.1 % 9.8 % Eosinophils (%) (Auto) 1.8 % 1.9 % Basophils (%) (Auto) 0.6 % 0.7 % Neutrophils # (Auto) 9.6 TH/MM3 7.9 TH/MM3 Lymphocytes # (Auto) 2.3 TH/MM3 2.9 TH/MM3 Monocytes # (Auto) 1.1 TH/MM3 1.2 TH/MM3 Eosinophils # (Auto) 0.2 TH/MM3 0.2 TH/MM3 Basophils # (Auto) 0.1 TH/MM3 0.1 TH/MM3 CBC Comment DIFF FINAL DIFF FINAL Differential Comment Laboratory Tests Test 02/12/17 23:58 02/13/17 12:35 02/14/17 05:31 Blood Urea Nitrogen 9 MG/DL 10 MG/DL 14 MG/DL Creatinine 0.97 MG/DL 1.00 MG/DL 1.17 MG/DL Random Glucose 157 MG/DL 229 MG/DL 192 MG/DL Calcium Level 8.1 MG/DL 7.5 MG/DL 7.5 MG/DL Sodium Level 136 MEQ/L 134 MEQ/L 134 MEQ/L Potassium Level 3.1 MEQ/L 3.4 MEQ/L 4.0 MEQ/L Chloride Level 96 MEQ/L 96 MEQ/L 97 MEQ/L Carbon Dioxide Level 32.3 MEQ/L 30.8 MEQ/L 28.2 MEQ/L Anion Gap 8 MEQ/L 7 MEQ/L 9 MEQ/L Estimat Glomerular Filtration Rate 78 ML/MIN 75 ML/MIN 63 ML/MIN Total Protein 6.3 GM/DL 6.9 GM/DL Albumin 1.7 GM/DL 2.0 GM/DL Alkaline Phosphatase 83 U/L 92 U/L Aspartate Amino Transf (AST/SGOT) 30 U/L 45 U/L Alanine Aminotransferase (ALT/SGPT) 16 U/L 28 U/L Total Bilirubin 0.4 MG/DL 0.5 MG/DL Magnesium Level 1.4 MG/DL 1.7 MG/DL Phosphorus Level 2.8 MG/DL Microbiology Date/Time Source Procedure Growth Status 02/11/17 16:00 Urine Clean Catch Urine Culture - Final Chiara Tropicalis Complete Imaging Last Impressions Lower Extremity Ultrasound 02/07/17 0000 Signed Impressions: Service Date/Time: Tuesday, February 07, 2017 08:24 - CONCLUSION: Normal examination. No evidence of DVT Jamie Watters MD Chest X-Ray 02/07/17 0000 Signed Impressions: Service Date/Time: Tuesday, February 07, 2017 12:34 - CONCLUSION: 1. Possible CHF. Natalio Way MD Abdomen X-Ray 02/01/17 0000 Signed Impressions: Service Date/Time: Wednesday, February 01, 2017 11:14 - CONCLUSION: 1. Air lucency in the upper abdomen concerning for possible free intraperitoneal air. 2. NG tube looped in the stomach. Attention been made to contact the surgical team. Vishal Brewer MD Abdomen/Pelvis CT 01/29/17 0000 Signed Impressions: Service Date/Time: Sunday, January 29, 2017 06:37 - CONCLUSION: 1. Suspected ischemic bowel process involving the terminal ileum and cecum which is associated with portal gas in the liver. 2. No evidence of organized abscess. 3. Mild hydronephrosis and distended urinary bladder. Kelby Laurent MD Physical Exam CONSTITUTIONAL/GENERAL: This is an adequately nourished patient, in no apparent distress. TUBES/LINES/DRAINS: SKIN: No jaundice, rashes, or lesions. . Skin temperature appropriate. Not diaphoretic. GASTROINTESTINAL: Abdomen with nearly healed incision ,not tender, not distended . Bowel sounds hypoactive MUSCULOSKELETAL: Extremities without clubbing, cyanosis, no edema BLE Assessment & Plan Remarks Ischemic bowel sp resection and subsequnt anastomocsis Clostridia perfringens present in surg margins Leukocytosis - persists, aorunfd 14 H New diarrhea, nausea, vomiting - c.diff neg - diarrhea resolved REC's: dc home w/o abx dw Dl Moriah Valladares MD Feb 14, 2017 15:23
== END 2017-02-14 13:19 | DRG 329 ==
LOC: PHED 05:05 → PHEDA 07:26 → N03A 08:17 → N07B 02-05 09:02
PROVIDERS: ADMIT Surgery Surgical Critical Care; ATTEND Hospitalist
PROC: 0DBB0ZZ Excision of Ileum, Open Approach (ICD-10-PCS; 2017-01-29)
PROC: 0DTF0ZZ Resection of Right Large Intestine, Open Approach (ICD-10-PCS; principal; 2017-01-29 10:40)
PROC: 0DBB0ZZ Excision of Ileum, Open Approach (ICD-10-PCS; 2017-01-31)
PROC: 0D9B0ZZ Drainage of Ileum, Open Approach (ICD-10-PCS; 2017-01-31)
DX: K55.029 Acute infarction of small intestine, extent unspecified (principal); E11.00 Type 2 diabetes mellitus with hyperosmolarity without nonketotic hyperglycemic-hyperosmolar coma (NKHHC); I50.21 Acute systolic (congestive) heart failure; N17.9 Acute kidney failure, unspecified; B96.7 Clostridium perfringens [C. perfringens] as the cause of diseases classified elsewhere; E87.2 Acidosis; B19.10 Unspecified viral hepatitis B without hepatic coma; I11.0 Hypertensive heart disease with heart failure; K76.6 Portal hypertension; E87.1 Hypo-osmolality and hyponatremia; B37.49 Other urogenital candidiasis; K55.049 Acute infarction of large intestine, extent unspecified; E11.65 Type 2 diabetes mellitus with hyperglycemia; E11.40 Type 2 diabetes mellitus with diabetic neuropathy, unspecified; K74.60 Unspecified cirrhosis of liver; B18.2 Chronic viral hepatitis C; E87.6 Hypokalemia; E86.0 Dehydration; R23.4 Changes in skin texture; R19.7 Diarrhea, unspecified; E78.5 Hyperlipidemia, unspecified; E83.51 Hypocalcemia; E83.42 Hypomagnesemia; J44.9 Chronic obstructive pulmonary disease, unspecified; F17.210 Nicotine dependence, cigarettes, uncomplicated; Z79.4 Long term (current) use of insulin; Z88.5 Allergy status to narcotic agent; Z88.8 Allergy status to other drugs, medicaments and biological substances; Z91.041 Radiographic dye allergy status; Z85.51 Personal history of malignant neoplasm of bladder; D69.6 Thrombocytopenia, unspecified; K66.0 Peritoneal adhesions (postprocedural) (postinfection); Z86.718 Personal history of other venous thrombosis and embolism
CPT/HCPCS: 71010; 74000; 74020; 74176; 76937; 80048; 80053; 80061; 81001; 82010; 82805; 82948; 83605; 83690; 83735; 83880; 83930; 84100; 84132; 84155; 85007; 85025; 85027; 85610; 85730; 86077; 86850; 86870; 86880; 86900; 86901; 86902; 86920; 86922; 87040; 87086; 87106; 87493; 87641; 88305; 88307; 88312; 93005; 93306; 93970; 94150; 96361; 96372; 96374; C1765; C9113; J0131; J0500; J0690; J1100; J1170; J1644; J1815; J1817; J1885; J1940; J2270; J2370; J2405; J2543; J3010; J3475; J3480; J7030; J7040; J7050; J7120

== ENCOUNTER 2017-03-10 10:54 | Inpatient (IN) | payer MEDICARE, OTHER ==
[2017-03-10] VITALS (7 sets, daily range): BP systolic 120–150; BP diastolic 68–88; PULSE 79–131; RESP 17–20; TEMP 97.9–99.5; O2SAT 95–99
[~2017-03-10] VITALS: Ht 188 cm; Wt 84.6 kg
[~2017-03-10 10:54] MED LIST changes: -BACT2OIN TOPICAL; -CLIN1CAP6 PO; +DIFL200T PO; -DILA2TAB2 PO; +DILA2TAB4 PO; -MULT1TAB84 PO; -OXYC1CAP PO; -ZINC50TA PO; -[UNRECOGNIZED DRUG - CODE] PO; -[UNRECOGNIZED DRUG - CODE] TOP
[2017-03-10] MEDS ORDERED: SODIUM CHLOR 0.9% 1000 ML INJ 1,000 ML IV SCH (11:09)
--- NOTE | 2017-03-10 11:13 | PD ---
HPI Chief Complaint: Pain: Acute or Chronic Time Seen by Provider: 11:09 Travel History International Travel<30 days: No Contact w/Intl Traveler<30days: No Traveled to known affect area: No History of Present Illness HPI This is a 66-year-old male who presents to the emergency department with nausea , vomiting and abdominal cramping that started yesterday ever since he ran out of Dilaudid. He says that he has been taking Dilaudid ever since he was admitted to the hospital in the setting of an intestinal perforation due to ischemic bowel. He was discharged from a long-term about 3 weeks ago. He says he feels feverish, fatigued, lightheaded, constant, severe, and his abdominal pain is described as a cramping pain. He says it feels different to when he came in last time with acute abdominal pain. PFSH Past Medical History Hx Anticoagulant Therapy: No Arthritis: Yes Asthma: No Autoimmune Disease: No Blood Disorders: Yes (VARICES,BANDING IN PAST WITH ERCP) Anxiety: Yes Depression: Yes Heart Rhythm Problems: No Cancer: Yes (bladder cancer) Cardiac Catheterization: Yes Cardiovascular Problems: Yes (HTN, CHOL) High Cholesterol: Yes Chemotherapy: Yes Chest Pain: No Congestive Heart Failure: No Cirrhosis: Yes (END STAGE LIVER DISEASE) COPD: Yes Cerebrovascular Accident: No Diabetes: Yes Diminished Hearing: No Deep Vein Thrombosis: Yes Endocrine: Yes Gastrointestinal Disorders: No GERD: No Genitourinary: Yes (bladder cancer / partial removal of bladder) Headaches: No Hepatitis: Yes (C) Hiatal Hernia: No Heparin Induced Thrombocytopen: No Hypertension: Yes Immune Disorder: No Implanted Vascular Access Dvce: No Kidney Stones: Yes (removed) Musculoskeletal: Yes Neurologic: No Psychiatric: Yes Reproductive: No Respiratory: Yes (COPD) Immunizations Current: Yes Migraines: No Pancreatitis: Yes Radiation Therapy: Yes Renal Failure: No Seizures: No Sickle Cell Disease: No Sleep Apnea: No Thyroid Disease: No Ulcer: No Past Surgical History Abdominal Surgery: Yes (appendectomy/choly, spleen repair) AICD: No Appendectomy: Yes Arteriovenous Shunt: No Body Medical Devices: PT DENIES Cardiac Surgery: Yes (co artation of the aorta) Cholecystectomy: Yes Ear Surgery: No Endocrine Surgery: No Eye Surgery: No Genitourinary Surgery: No Insulin Pump: No Joint Replacement: No Neurologic Surgery: Yes (BACK SURGERY X 2) Oral Surgery: No Pacemaker: No Thoracic Surgery: No Tympanostomy Tube: Yes Other Surgery: Yes (ercp banding) Social History Alcohol Use: No Tobacco Use: Yes (6 cigs) Substance Use: No Allergies-Medications (Allergen,Severity, Reaction): Coded Allergies: Iodinated Contrast- Oral and IV Dye (Unverified Allergy, Severe, rash/ flush, 03/10/17) butorphanol (Unverified Allergy, Severe, rash, 03/10/17) codeine (Unverified Allergy, Severe, breathing probs, 03/10/17) pentazocine (Unverified Allergy, Severe, breathing probs, 03/10/17) Reported Meds & Prescriptions Reported Meds & Active Scripts Active Dilaudid (Hydromorphone HCl) 2 Mg Tab 2 Mg PO Q6H PRN Levemir Inj (Insulin Detemir) 1,000 unit/ 10 ML Vial 30 Units SQ HS Please make a follow-up appointment in 3-4 weeks for further Rx renewals. Do not mix with any other Insulin. Pioglitazone (Pioglitazone HCl) 15 Mg Tab 15 Mg PO DAILY Tradjenta (Linagliptin) 5 Mg Tab 5 Mg PO DAILY Novolog Inj (Insulin Aspart) 1,000 Unit/10 Ml Vial 2-12 Units SQ ACHS Max dose at bedtime ( ) units; sugars less than 70,(0) units; sugars 150-199,(2) units; sugars 200-249,(4) units; sugars 250-299,(7) units; sugars 300-349,(10) units; sugars greater than 349,(12)units Reported Glucosamine Chondroitin (Waqbnfwblig-Fyilanyqozz-Yfm C-) 1 Tab Tab 1 Tab PO BID Fish Oil ([place]-3 Fatty Acids) 1,000 Mg Cap 1 Cap PO BID Gemfibrozil 600 Mg Tab 600 Mg PO BIDAC Take 30 minutes prior to breakfast and dinner. Symbicort Inh (Budesonide/Formoterol Fumarate) 160-4.5 Mcg/Act Aero 1 Puff INH Q12HR Lisinopril 10 Mg Tab 10 Mg PO DAILY Gabapentin 100 Mg Cap 100 Mg PO TID Proair Hfa 8.5 GM Inh (Albuterol Sulfate) 90 Mcg/Act Aer 1 Puff INH Q4H PRN 108 mcg/actuation Review of Systems Except as stated in HPI: all other systems reviewed are Neg Physical Exam Narrative GENERAL: Uncomfortable appearing SKIN: Focused skin assessment warm and dry. HEAD: Atraumatic. Normocephalic. EYES: Pupils equal and round. No injection or drainage. ENT: Dry mucous membranes. NECK: Trachea midline. CARDIOVASCULAR: Tachycardic. No murmur appreciated. RESPIRATORY: Clear to auscultation. Breath sounds equal bilaterally. GASTROINTESTINAL: Abdomen soft, diffusely tender to palpation with no rebound or guarding. Well healing surgical scar in the midline. MUSCULOSKELETAL: No obvious deformities. NEUROLOGICAL: Awake and alert. No obvious cranial nerve deficits. Moving all extremities. PSYCHIATRIC: Anxious. Data Data Last Documented VS Vital Signs Date Time Temp Pulse Resp B/P (MAP) Pulse Ox O2 Delivery O2 Flow Rate FiO2 03/10/17 13:25 115 20 150/86 (107) 99 Room Air 03/10/17 10:57 98.4 Orders Orders Complete Blood Count With Diff (03/10/17 11:09) Comprehensive Metabolic Panel (03/10/17 11:09) Lipase (03/10/17 11:09) Lactic Acid (03/10/17 11:09) Prothrombin Time / Inr (Pt) (03/10/17 11:09) Act Partial Throm Time (Ptt) (03/10/17 11:09) Urinalysis - C+S If Indicated (03/10/17 11:09) Iv Access Insert/Monitor (03/10/17 11:09) Ecg Monitoring (03/10/17 11:09) Oximetry (03/10/17 11:09) Ondansetron Inj (Zofran Inj) (03/10/17 11:15) Sodium Chlor 0.9% 1000 Ml Inj (Ns 1000 M (03/10/17 11:09) Sodium Chloride 0.9% Flush (Ns Flush) (03/10/17 11:15) Hydromorphone Pf Inj (Dilaudid Pf Inj) (03/10/17 11:15) Ct Abd/Pel W/O Iv Contrast (03/10/17 ) Chest, Single Ap (03/10/17 ) Blood Culture (03/10/17 12:10) Piperacil-Tazo 3.375 Gm Premix (Zosyn 3. (03/10/17 12:15) Urine Culture (03/10/17 12:50) Clindamycin Inj (Cleocin Inj) (03/10/17 13:30) Admit Order (Ed Use Only) (03/10/17 13:32) Consult General Surgery (03/10/17 ) Labs Laboratory Tests Test 03/10/17 11:35 03/10/17 12:50 White Blood Count 15.1 TH/MM3 Red Blood Count 3.35 MIL/MM3 Hemoglobin 8.8 GM/DL Hematocrit 26.8 % Mean Corpuscular Volume 80.2 FL Mean Corpuscular Hemoglobin 26.3 PG Mean Corpuscular Hemoglobin Concent 32.8 % Red Cell Distribution Width 15.4 % Platelet Count 296 TH/MM3 Mean Platelet Volume 7.2 FL Neutrophils (%) (Auto) 88.3 % Lymphocytes (%) (Auto) 6.4 % Monocytes (%) (Auto) 4.7 % Eosinophils (%) (Auto) 0.3 % Basophils (%) (Auto) 0.3 % Neutrophils # (Auto) 13.4 TH/MM3 Lymphocytes # (Auto) 1.0 TH/MM3 Monocytes # (Auto) 0.7 TH/MM3 Eosinophils # (Auto) 0.0 TH/MM3 Basophils # (Auto) 0.0 TH/MM3 CBC Comment DIFF FINAL Differential Comment Prothrombin Time 13.3 SEC Prothromb Time International Ratio 1.2 RATIO Activated Partial Thromboplast Time 32.4 SEC Blood Urea Nitrogen 9 MG/DL Creatinine 0.53 MG/DL Random Glucose 173 MG/DL Total Protein 7.6 GM/DL Albumin 1.4 GM/DL Calcium Level 7.7 MG/DL Alkaline Phosphatase 123 U/L Aspartate Amino Transf (AST/SGOT) 22 U/L Alanine Aminotransferase (ALT/SGPT) 23 U/L Total Bilirubin 0.8 MG/DL Sodium Level 130 MEQ/L Potassium Level 3.3 MEQ/L Chloride Level 94 MEQ/L Carbon Dioxide Level 28.5 MEQ/L Anion Gap 8 MEQ/L Estimat Glomerular Filtration Rate 156 ML/MIN Lactic Acid Level 1.9 mmol/L Lipase 80 U/L Urine Collection Type VOIDED Urine Color SUMAN Urine Turbidity CLEAR Urine pH 7.0 Urine Specific [place] 1.014 Urine Protein NEG mg/dL Urine Glucose (UA) NEG mg/dL Urine Ketones NEG mg/dL Urine Occult Blood NEG Urine Nitrite NEG Urine Bilirubin NEG Urine Leukocyte Esterase TRACE Urine WBC 3-5 /hpf Urine WBC Clumps FEW Urine Squamous Epithelial Cells 0-2 /hpf Urine Bacteria RARE /hpf Urine Yeast (Budding) FEW Microscopic Urinalysis Comment CULTURE INDICATED MDM Medical Decision Making Medical Screen Exam Complete: Yes Emergency Medical Condition: Yes Medical Record Reviewed: Yes (patient was admitted in January and had an episode of abdominal pain with air in his abdomen on CT scan. He was taken to surgery with Dr. Jordan and Clostridium perfringens grew from his bowel.) Interpretation(s) Tachycardic Leukocytosis 88% neutrophils Mild hyponatremia Mild hypokalemia Lactic acid is 1.9 Urinalysis demonstrates bacteria Last 24 hours Impressions Chest X-Ray 03/10/17 0000 Signed Impressions: Service Date/Time: Friday, March 10, 2017 12:09 - CONCLUSION: No acute disease. There is no evidence of pneumonia. Jase Estes MD Abdomen/Pelvis CT 03/10/17 0000 Signed Impressions: Service Date/Time: Friday, March 10, 2017 12:08 - CONCLUSION: 1. Coarsened appearance of the liver identified previously actually is less prominent on the current exam. In addition, there is less ascites. 2. However, the portal vein appears to be more prominent and there is interval enlargement of the spleen now measures 17.7 cm in greatest SI dimension. Findings are characteristic of increasing portal hypertension. 3. Borderline prominent right inguinal lymph nodes are likely reactive. 4. Small bilateral pleural effusions with concomitant atelectatic changes. Stanton Beaulieu MD Differential Diagnosis Colitis, enteritis, bacteremia, acute opiate withdrawal, ischemic necrosis Narrative Course This is a 66-year-old male who presents to the emergency department with abdominal discomfort, nausea and vomiting. By history it seems that most of his symptoms are opiate related. He says he ran out of his Dilaudid yesterday. He forced demonstrates that he filled 120 tablets of Dilaudid 10 days ago. Despite this the patient does look uncomfortable. He is tachycardic and is diffusely tender on abdominal exam. Labs are obtained which demonstrate a leukocytosis. CT demonstrates no evidence of acute infection but does demonstrate worsening portal hypertension. I spoke to Dr. Jordan who recommended the patient be transferred to the [facility] given his complex recent hospitalization admission for concern that he may have recurrence of his abdominal infection. Patient was cultured and started on Zosyn and clindamycin and will be admitted for further management. Physician Communication Physician Communication Discussed with Dr. Jordan and Dr. Zamarripa. Diagnosis Primary Impression: Sepsis Qualified Codes: A41.9 - Sepsis, unspecified organism Admitting Information Admitting Physician Requests: it Allyssa Acosta MD Mar 10, 2017 11:13
[2017-03-10] MEDS ORDERED: ONDANSETRON HCL 4 MG/2 ML VIAL IVP ONE (11:15)
[2017-03-10] MEDS ORDERED: HYDROmorphone HCL PF 1 MG/ML VIAL IVS ONE (11:15)
[2017-03-10] MEDS: SODIUM CHLORIDE 0.9% FLUSH 10 ML FLUSH IV FLUSH PRN ×2 (11:44→12:37)
[2017-03-10 11:46] LABS: AUTOMATED NEUTROPHIL # 13.4 TH/MM3 (1.8-7.7); BASOPHIL % 0.3 % (0.0-2.0); EOSINOPHIL % 0.3 % (0.0-4.0); HEMATOCRIT 26.8 % (39.0-51.0); HEMO FLAGS DIFF FINAL; LYMPH % 6.4 % (9.0-44.0); MEAN CELL VOLUME 80.2 FL (80.0-100.0); MEAN CORPUSCULAR HEMOGLOBIN 26.3 PG (27.0-34.0); MEAN CORPUSCULAR HGB CONC 32.8 % (32.0-36.0); MONO % 4.7 % (0.0-8.0); NEUT % 88.3 % (16.0-70.0); PLATELET COUNT 296 TH/MM3 (150-450); RED BLOOD COUNT 3.35 MIL/MM3 (4.50-5.90); RED CELL DISTRIBUTION WIDTH 15.4 % (11.6-17.2); WHITE BLOOD COUNT 15.1 TH/MM3 (4.0-11.0)
[2017-03-10 11:53] LABS: CHLORIDE 94 MEQ/L (98-107); POTASSIUM 3.3 MEQ/L (3.5-5.1); SODIUM (NA) 130 MEQ/L (136-145)
[2017-03-10 11:57] LABS: ANION GAP 8 MEQ/L (5-15); APTT (PATIENT) 32.4 SEC (24.3-30.1); BICARBONATE 28.5 MEQ/L (21.0-32.0); BLOOD UREA NITROGEN 9 MG/DL (7-18); INTERNATIONAL NORMALIZED RATIO 1.2 RATIO; PROTHROMBIN TIME - PATIENT 13.3 SEC (9.8-11.6)
[2017-03-10 12:00] LABS: ALT (GPT) 23 U/L (12-78); AST (GOT) 22 U/L (15-37); GLOMERULAR FILTRATION RATE 156 ML/MIN (>89)
[2017-03-10 12:01] LABS: TOTAL BILIRUBIN ADULT 0.8 MG/DL (0.2-1.0)
[2017-03-10 12:03] LABS: ALKALINE PHOSPHATASE 123 U/L (45-117)
[2017-03-10] MEDS ORDERED: PIPERACIL-TAZO 3.375 GM PREMIX 50 ML IV ONE (12:15)
--- NOTE | 2017-03-10 12:32 | RADRPT ---
EXAM DATE/TIME: 03/10/2017 12:08 [facility] COMPARISON: CT ABDOMEN & PELVIS W/O CONTRAST, February 12, 2017, 15:32. INDICATIONS : Diffuse abdominal pain. ORAL CONTRAST: No oral contrast ingested. RADIATION DOSE: 14.82 CTDIvol (mGy) MEDICAL HISTORY : Hypertension. Bladder cancer. SURGICAL HISTORY : Appendectomy. Cholecystectomy.Spleen repair. Partial bladder removal. ENCOUNTER: Initial ACUITY: 1 day PAIN SCALE: 8/10 LOCATION: Bilateral abdomen TECHNIQUE: Volumetric scanning of the abdomen and pelvis was performed. Using automated exposure control and ad justment of the mA and/or kV according to patient size, radiation dose was kept as low as reasonably achievable to obtain optimal diagnostic quality images. DICOM format image data is available electro nically for review and comparison. FINDINGS: LOWER LUNGS: Small bilateral pleural effusions with concomitant atelectatic changes LIVER: Liver appeared somewhat coarsened on the prior exam. This is less prominent currently. However, the p ortal vein appears to be more prominent and the spleen shows interval enlargement concerning for wors ening portal hypertension. SPLEEN: Progressive enlargement of measuring 17.7 cm in greatest SI dimension. Previously measured approximat mukund 14.8 cm. PANCREAS: Within normal limits. KIDNEYS: Normal in size and shape. There is no mass, stone, or hydronephrosis. ADRENAL GLANDS: Within normal limits. VASCULAR: There is no aortic aneurysm. BOWEL/MESENTERY: Stable postsurgical changes in in the right colon. The amount of ascites has decreased from the prior study. ABDOMINAL WALL: Midline vertical abdominal incision. RETROPERITONEUM: There is no lymphadenopathy. BLADDER: No wall thickening or mass. REPRODUCTIVE: Within normal limits. INGUINAL: A few borderline lymph nodes are identified in the right inguinal region which almost certainly react sma. Largest node measures approximately 1.9 cm in diameter. MUSCULOSKELETAL: Within normal limits for patient age. CONCLUSION: 1. Coarsened appearance of the liver identified previously actually is less prominent on the current exam. In addition, there is less ascites. 2. However, the portal vein appears to be more prominent and there is interval enlargement of the spl een now measures 17.7 cm in greatest SI dimension. Findings are characteristic of increasing portal h ypertension. 3. Borderline prominent right inguinal lymph nodes are likely reactive. 4. Small bilateral pleural effusions with concomitant atelectatic changes. Stanton Beaulieu MD on March 10, 2017 at 12:23 Board Certified Radiologist. This report was verified electronically.
--- NOTE | 2017-03-10 12:48 | RADRPT ---
EXAM DATE/TIME: 03/10/2017 12:09 [facility] COMPARISON: CHEST SINGLE AP, February 11, 2017, 14:24. INDICATIONS : Fever MEDICAL HISTORY : Hypertension. Bladder cancer. SURGICAL HISTORY : Appendectomy. Cholecystectomy.Spleen repair. Partial bladder removal. ENCOUNTER: Initial ACUITY: 1 day PAIN SCORE: 10/10 LOCATION: Bilateral chest FINDINGS: 2 AP portable semierect views of the chest demonstrates the lungs to be symmetrically aerated without evidence of mass, infiltrate or effusion. The cardiomediastinal contours are unremarkable. Osseous structures are intact. There are multiple old healed rib fractures. CONCLUSION: No acute disease. There is no evidence of pneumonia. Jase Estes MD on March 10, 2017 at 12:46 Board Certified Radiologist. This report was verified electronically.
[2017-03-10 13:08] LABS: BLOOD, URINE NEG (NEG); GLUCOSE,URINE NEG (NEG); KETONE, URINE NEG (NEG); NITRITE,URINE NEG (NEG)
[2017-03-10 13:12] LABS: METHOD OF COLLECTION VOIDED; URINE COLOR AMBER (YELLW/STRAW)
[2017-03-10 13:14] LABS: BACTERIA, URINE RARE /hpf; COMMENT (UR) CULTURE INDICATED; CULTURE IF INDICATED CULTURE INDICATED; SQUAMOUS EPITHELIAL CELL URINE 0-2 /hpf (0-5)
[2017-03-10] MEDS ORDERED: CLINDAMYCIN INJ 900 MG in SODIUM CHLORIDE 0.9% INJ 100 ML IV ONE (13:30)
--- NOTE | 2017-03-10 13:53 | PD.PN.STU ---
Subjective Remarks CC: abdominal pain HPI: Pt is a 66yo male with extensive h/o of malignancy, surgeries, opiate dependence, and DM with neuropathy who presented in the ER for severe abdominal pain that began yesterday. Patient recently underwent an exploratory laparoscopy with small bowel resection by Dr. Jordan on 02/17/17 due to air and positive Clostridium perfringens on the surgical margins. He was discharged to a SNF and was discharged home 8 days ago. Pt reports that his pain is 10/10 currently and denies any changes in his lifestyle/habits yesterday that may have caused the pain. Pt reports good appetite and bowel movements in the past several days. Aggravating factors include any body movement and alleviating factors include Dilaudid. Pt reports that he has been taking about 4mg of Dilaudid every 4 hrs in the past couple of days. Records show that he filled 120 pills of Dilaudid about 10d ago that was prescribed by Dr. Bahena, but on interview pt denies following up with any physicians. Pt reports spasms all over his body, nausea, diarrhea, leg pain from neuropathy, and abdominal pain worse in the RLQ . Denies fever, vomiting, chills, CP, SOB, blood in stools/ urine. In the ER patient did have and abnormal CT of the abd/pelvis and surgery has recommended he be admitted for further evaluation. He is tachycardic and has dry mucus membranes, is tearful regarding his pain. 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 mom had lupus and cancer, from pneumonia at 52. father had colon cancer. grandmother had pancreatic cancer. SH: was residing in a half-way facility, currently living with his daughter at her home (previously homeless). reports opiate use only as prescribed, occasional marijuana and tobacco use. denies alcohol use and other narcotics Allergies: codeine, iodine contrast and as listed ROS: Constitutional: reports malaise and nausea. denies fever, chills Cardio: denies chest pain, palpitations Pulmo: denies sob, difficulty breathing GI: reports abdominal pain, diarrhea. denies constipation, blood in stools/urine :denies urinary incontinence MSK: reports generalized body spasms, neuropathic pain in LE. denies weakness Derm: reports nonpainful rash in the sternal notch area that's been present for 5days. all other systems reviewed are negative Objective Vitals Vital Signs Date Time Temp Pulse Resp B/P (MAP) Pulse Ox O2 Delivery O2 Flow Rate FiO2 03/10/17 13:25 115 20 150/86 (107) 99 Room Air 03/10/17 12:45 107 20 120/79 (93) 98 Room Air 03/10/17 12:33 16 03/10/17 11:43 Room Air 03/10/17 10:57 98.4 131 18 134/81 (98) 99 I/O 03/09/17 03/09/17 03/09/17 03/10/17 03/10/17 03/10/17 07:00 15:00 23:00 07:00 15:00 23:00 Intake Total 1050 ml Balance 1050 ml Intake IV Total 1050 ml Result Diagram: 03/10/17 1135 03/10/17 1135 Imaging Last Impressions Chest X-Ray 03/10/17 0000 Signed Impressions: Service Date/Time: Friday, March 10, 2017 12:09 - CONCLUSION: No acute disease. There is no evidence of pneumonia. Jase Estes MD Abdomen/Pelvis CT 03/10/17 0000 Signed Impressions: Service Date/Time: Friday, March 10, 2017 12:08 - CONCLUSION: 1. Coarsened appearance of the liver identified previously actually is less prominent on the current exam. In addition, there is less ascites. 2. However, the portal vein appears to be more prominent and there is interval enlargement of the spleen now measures 17.7 cm in greatest SI dimension. Findings are characteristic of increasing portal hypertension. 3. Borderline prominent right inguinal lymph nodes are likely reactive. 4. Small bilateral pleural effusions with concomitant atelectatic changes. Stanton Beaulieu MD Objective Remarks GENERAL: anxious, ill-appearing, undernourished male who appeared in pain SKIN: Warm and dry. +tattoos. blanching, nontender rash around the sternal notch area HEAD: Atraumatic. Normocephalic. Bilateral temporal wasting EYES: Pupils equal and round. EOMI. No scleral icterus. No injection or drainage. ENT: No nasal bleeding or discharge. Pale and dry mucous membranes. NECK: Trachea midline. No JVD. CARDIOVASCULAR: Regular rate and rhythm. S1 and S2 heard, no murmurs, gallops, rubs RESPIRATORY: No accessory muscle use. Clear to auscultation. Breath sounds equal bilaterally. GASTROINTESTINAL: Hypoactive bowel sounds. Abdomen soft, nondistended, tender to auscultation and palpation. No guarding. MUSCULOSKELETAL: Edematous, erythematous and mild bruising on the right lateral hand. Extremities without clubbing, cyanosis, or edema. No obvious deformities. NEUROLOGICAL: Awake and alert. No obvious cranial nerve deficits. Motor grossly within normal limits. Five out of 5 muscle strength in the arms and legs. Normal speech. increased pain sensitivity in LE. PSYCHIATRIC: anxious. insight and judgment normal. Medications and IVs Current Medications Medications (Trade) Dose Ordered Sig/Jaya Route Start Time Stop Time Status Last Admin (NS Flush) 2 ml UNSCH PRN IV FLUSH 03/10/17 11:15 03/10/17 12:37 Clindamycin Phosphate 900 mg/ Sodium Chloride 106 ml @ 212 mls/hr ONCE ONCE IV 03/10/17 13:30 03/10/17 13:59 A/P Assessment and Plan 1. Abdominal Pain etiology unclear poss 2/2 recurrent abdominal infection vs post-op complications vs narcotic withdrawal cont IVF pain med includes IV Dilaudid gen surgery consult, CT abdomen abnormal, post-op changes vs new infection empiric antibiotic cont zosyn and clinda check C.diff toxin clear diet 2. Leukocytosis etiology unclear poss 2/2 old vs new abdominal infection vs post-op complication blood culturesx2 pending cont empiric antibiotics cont zosyn and follow UA 3. Anemia- chronic screen and follow for transfusion needs may need colonoscopy once stable 4. Electrolyte abnormalities- Hyponatremia and hypokalemia cont IVF supplement as needed 5. Tachycardia poss 2/2 sepsis vs narcotic withdrawal cont telemetry follow as electrolytes correct and symptoms improve 6. Diabetes Mellitus with neuropathy- chronic SSI with hypoglycemic protocol daily accuchecks will hold levemir, tradjenta, pioglitazone until more stable cont gabapentin last HbA1C in 2015 was 10.6 7. COPD-chronic start breathing treatments as needed no evidence of exacerbation at this time X-ray reviewed and showed no acute abnormalities 8. Hypertension- controlled cont home lisinopril monitor BP 9. Opiate Dependence follow up for withdrawal on low dose IV Dilaudid non-narcotic pain management as needed 10. Hep C Infection- chronic with previous failure of interferon treatment follow up outpatient GI DVT prophylaxis- on Lovenox Medical Decision Making Impression and Plan The exam, history, and the medical decision-making described in the above note were completed with my assistance. I reviewed and agree with the findings presented. I attest that I had a sniq-od-ucer encounter with the patient on the same day, and personally performed and documented my assessment and findings in the medical record. CXRay reviewed by me shows no acute cardiopulmonary processes case d/w patient and RN, and Leonila Lazo Mar 10, 2017 13:53 Brie Zamarripa MD Mar 10, 2017 14:50
[2017-03-10] MEDS ORDERED: NALOXONE HCL 0.4 MG/ML AMP IV PUSH PRN (14:30)
[2017-03-10] MEDS ORDERED: GLUCAGON 1 MG/ML VIAL OTHER PRN ×2 (14:30→20:30)
[2017-03-10] MEDS ORDERED: HYDROmorphone HCL PF 1 MG/ML VIAL IV PUSH ONE (14:30)
[2017-03-10] MEDS ORDERED: POTASSIUM CHLORIDE 10 MEQ CONTROLLED RELEASE TAB PO ONE (14:30)
[2017-03-10] MEDS ORDERED: RESP: ALBUTEROL 2.5 MG/IPRATROPIUM 0.5 MG NEB (PRN) NEB (14:30)
[2017-03-10] MEDS ORDERED: SODIUM CHLORIDE 0.9% FLUSH 10 ML FLUSH IV FLUSH PRN (14:30)
[2017-03-10] MEDS ORDERED: DEXTROSE 50% IN WATER 50 ML VIAL(D50) IV PUSH PRN ×2 (14:30→20:30)
[2017-03-10] MEDS ORDERED: HYDROmorphone HCL PF 1 MG/ML VIAL IV PUSH PRN (14:30)
[2017-03-10] MEDS ORDERED: ONDANSETRON HCL 4 MG/2 ML VIAL IVP PRN (14:30)
[2017-03-10] MEDS: SODIUM CHLOR 0.9% 1000 ML INJ 1,000 ML IV SCH (15:04)
[2017-03-10] MEDS: FAMOTIDINE 20 MG/2 ML VIAL IV PUSH SCH (16:51)
[2017-03-10] MEDS: ENOXAPARIN SODIUM 40 MG/0.4 ML SYRINGE SQ SCH (16:51)
[2017-03-10] MEDS: GABAPENTIN 100 MG CAP PO SCH (16:51)
[2017-03-10 18:17] LABS: C. DIFF EPI 027 PRESUMPTIVE NEGATIVE (NEGATIVE)
[2017-03-10] MEDS: HYDROmorphone HCL PF 2 MG/ML VIAL IV PRN ×2 (18:19→22:43)
[2017-03-10] MEDS: PIPERACIL-TAZO 4.5 GM PREMIX 100 ML IV SCH (18:20)
[2017-03-10] MEDS: INSULIN ASPART SUPPLEMENTAL SCALE SQ SCH (21:00)
[2017-03-10] MEDS: BUDESONIDE-FORMOTEROL 160/4.5 MCG INHALER INH SCH (21:00)
[2017-03-10] MEDS: SODIUM CHLORIDE 0.9% FLUSH 10 ML FLUSH IV FLUSH SCH (21:21)
[2017-03-10] MEDS: KETOROLAC TROMETHAMINE 30 MG/ML (IVP) VIAL IV PUSH PRN (21:22)
[2017-03-10] MEDS: CLINDAMYCIN INJ 600 MG in SODIUM CHLORIDE 0.9% INJ 100 ML IV SCH (21:29)
[2017-03-11 00:27] VITALS: BP 118/73; PULSE 82; RESP 17; TEMP 98.9; O2SAT 95
[2017-03-11] MEDS: SODIUM CHLOR 0.9% 1000 ML INJ 1,000 ML IV SCH ×3 (00:47→21:30)
[2017-03-11] MEDS: PIPERACIL-TAZO 4.5 GM PREMIX 100 ML IV SCH ×5 (00:48→17:12)
[2017-03-11] MEDS: FAMOTIDINE 20 MG/2 ML VIAL IV PUSH SCH ×2 (02:51→15:59)
[2017-03-11] MEDS: HYDROmorphone HCL PF 2 MG/ML VIAL IV PRN ×6 (02:52→21:27)
[2017-03-11 04:10] VITALS: BP 118/73; PULSE 80; RESP 18; TEMP 98.9; O2SAT 97
[2017-03-11] MEDS: KETOROLAC TROMETHAMINE 30 MG/ML (IVP) VIAL IV PUSH PRN ×2 (04:44→12:44)
[2017-03-11] MEDS: CLINDAMYCIN INJ 600 MG in SODIUM CHLORIDE 0.9% INJ 100 ML IV SCH ×4 (05:41→23:14)
[2017-03-11 07:30] VITALS: BP 126/77; PULSE 104; RESP 27; TEMP 98.3; O2SAT 96
[2017-03-11] MEDS: GABAPENTIN 100 MG CAP PO SCH ×3 (08:08→17:12)
[2017-03-11] MEDS: SODIUM CHLORIDE 0.9% FLUSH 10 ML FLUSH IV FLUSH SCH ×2 (08:08→21:31)
[2017-03-11] MEDS: BUDESONIDE-FORMOTEROL 160/4.5 MCG INHALER INH SCH ×2 (08:11→21:31)
--- NOTE | 2017-03-11 08:43 | HHI.HP ---
[facility] Service [facility] Primary Care Physician No Primary Care Physician Admission Diagnosis sepsis, abdominal pain Diagnoses: Travel History International Travel<30 Days: No Contact w/Intl Traveler <30 Da: No Traveled to Known Affected Are: No History of Present Illness Mr. Parks is a 66-year-old male. He was admitted secondary to right lower quadrant pain with sepsis. She has a history of a bowel resection approximately 1.5 months ago. Suspicion of bacterial enteritis or colitis is present in place since his recent surgical site at risk so close monitoring and treatments are initiated. Imaging shows no overt signs of abscess. His surgeon has been consulted. Nausea and vomiting was present at time of admit and he is responding well to Zofran thus far. No evidence of Dilaudid withdrawal being a component of this as he has not had improvement in symptoms after resuming Dilaudid for pain control. Review of Systems Constitutional: COMPLAINS OF: Fever, Chills, Night Sweats, DENIES: Fatigue Eyes: DENIES: Blurred vision, Diplopia, Eye inflammation, Eye pain Ears, nose, mouth, throat: DENIES: Tinnitus, Hearing loss, Vertigo Respiratory: DENIES: Apneas, Cough, Snoring, Wheezing, Shortness of breath Cardiovascular: DENIES: Chest pain, Palpitations, Syncope Gastrointestinal: COMPLAINS OF: Diarrhea, Nausea, Vomiting, DENIES: Abdominal pain, Black stools, Bloody stools, Constipation Musculoskeletal: DENIES: Joint pain, Muscle aches, Stiffness Integumentary: DENIES: Abnormal pigmentation, Nail changes, Pruritus, Rash Hematologic/lymphatic: DENIES: Bruising, Lymphadenopathy Immunologic/allergic: DENIES: Eczema, Urticaria Neurologic: DENIES: Abnormal gait, Headache, Paresthesias Psychiatric: DENIES: Anxiety, Confusion, Hallucinations Past Family Social History Past Medical History Cirrhosis Hep C HTN COPD DM Hx of DVT Past Surgical History hand surgery appendectomy cholecystectomy repair of spleen after trauma two back surgeries multiple ERCPs Reported Medications Reported Meds & Active Scripts Active Dilaudid (Hydromorphone HCl) 2 Mg Tab 2 Mg PO Q6H PRN Levemir Inj (Insulin Detemir) 1,000 unit/ 10 ML Vial 30 Units SQ HS Please make a follow-up appointment in 3-4 weeks for further Rx renewals. Do not mix with any other Insulin. Pioglitazone (Pioglitazone HCl) 15 Mg Tab 15 Mg PO DAILY Tradjenta (Linagliptin) 5 Mg Tab 5 Mg PO DAILY Novolog Inj (Insulin Aspart) 1,000 Unit/10 Ml Vial 2-12 Units SQ ACHS Max dose at bedtime ( ) units; sugars less than 70,(0) units; sugars 150-199,(2) units; sugars 200-249,(4) units; sugars 250-299,(7) units; sugars 300-349,(10) units; sugars greater than 349,(12)units Reported Glucosamine Chondroitin (Mwgxpqrpxhx-Brpicvwlgds-Ugq C-) 1 Tab Tab 1 Tab PO BID Fish Oil (Pierson-3 Fatty Acids) 1,000 Mg Cap 1 Cap PO BID Gemfibrozil 600 Mg Tab 600 Mg PO BIDAC Take 30 minutes prior to breakfast and dinner. Symbicort Inh (Budesonide/Formoterol Fumarate) 160-4.5 Mcg/Act Aero 1 Puff INH Q12HR Lisinopril 10 Mg Tab 10 Mg PO DAILY Gabapentin 100 Mg Cap 100 Mg PO TID Proair Hfa 8.5 GM Inh (Albuterol Sulfate) 90 Mcg/Act Aer 1 Puff INH Q4H PRN 108 mcg/actuation Allergies: Coded Allergies: Iodinated Contrast- Oral and IV Dye (Unverified Allergy, Severe, rash/ flush, 03/10/17) butorphanol (Unverified Allergy, Severe, rash, 03/10/17) codeine (Unverified Allergy, Severe, breathing probs, 03/10/17) pentazocine (Unverified Allergy, Severe, breathing probs, 03/10/17) Active Ordered Medications Administered Medications Medications (Trade) Dose Ordered Sig/Jaya Route PRN Reason Start Time Stop Time Status Last Admin Dose Admin Sodium Chloride 1,000 ml @ 100 mls/hr Q10H IV 03/10/17 14:22 03/11/17 00:47 Sodium Chloride (NS Flush) 2 ml BID IV FLUSH 03/10/17 21:00 03/10/17 21:21 Enoxaparin Sodium (Lovenox Inj) 40 mg Q24H SQ 03/10/17 16:00 03/10/17 16:51 Ketorolac Tromethamine (Toradol Inj) 30 mg Q6H PRN IV PUSH pain 3-8 03/10/17 14:30 03/15/17 14:29 03/11/17 04:44 Famotidine (Pepcid Inj) 20 mg Q12H IV PUSH 03/10/17 16:00 03/11/17 02:51 Budesonide/ Formoterol Fumarate (Symbicort 160-4.5 Inh) 1 puff Q12HR INH 03/10/17 21:00 03/11/17 08:11 Gabapentin (Neurontin) 100 mg TID PO 03/10/17 18:00 03/11/17 08:08 Piperacillin Sod/ Tazobactam Sod 100 ml @ 200 mls/hr Q6H IV 03/10/17 19:00 03/11/17 00:48 Clindamycin Phosphate 600 mg/ Sodium Chloride 104 ml @ 208 mls/hr Q8H IV 03/10/17 23:00 03/10/17 21:29 Hydromorphone HCl (Dilaudid Pf Inj) 1 mg Q4H PRN IV PAIN GREATER THAN 7 03/10/17 18:15 03/11/17 08:07 Insulin Aspart (NovoLOG SUPPLEMENTAL SCALE) 1 ACHS SLIDING SCALE SQ 03/10/17 21:00 03/10/17 21:00 Family History mother had lupus and of pneumonia. father had colon cancer and DM. Social History Smoking 6 cigs/day. No ETOH use No illicit drug abuse Physical Exam Vital Signs Vital Signs Date Time Temp Pulse Resp B/P (MAP) Pulse Ox O2 Delivery O2 Flow Rate FiO2 03/11/17 07:30 98.3 104 27 126/77 (93) 96 03/11/17 04:10 98.9 80 18 118/73 (88) 97 03/11/17 00:27 98.9 82 17 118/73 (88) 95 03/10/17 20:24 99.5 79 17 125/68 (87) 95 03/10/17 20:08 115 03/10/17 16:00 97.9 106 18 141/88 (105) 98 03/10/17 14:55 106 20 142/79 (100) 98 03/10/17 13:25 115 20 150/86 (107) 99 Room Air 03/10/17 12:45 107 20 120/79 (93) 98 Room Air 03/10/17 12:33 16 03/10/17 11:43 Room Air 03/10/17 10:57 98.4 131 18 134/81 (98) 99 Physical Exam GENERAL: NAD, A&Ox3 HEAD: Normocephalic. NECK: Supple, trachea midline. No lymphadenopathy. EYES: No scleral icterus. No injection or drainage. CARDIOVASCULAR: Regular rate and rhythm without murmurs, gallops, or rubs. RESPIRATORY: Breath sounds equal bilaterally. No accessory muscle use. GASTROINTESTINAL: Right lower quadrant abdominal pain and tenderness MUSCULOSKELETAL: No cyanosis, or edema. SKIN: Warm and dry. NEURO: No focal neurological deficitis. Laboratory Laboratory Tests Test 03/10/17 11:35 03/10/17 12:50 03/10/17 16:49 White Blood Count 15.1 Red Blood Count 3.35 Hemoglobin 8.8 Hematocrit 26.8 Mean Corpuscular Volume 80.2 Mean Corpuscular Hemoglobin 26.3 Mean Corpuscular Hemoglobin Concent 32.8 Red Cell Distribution Width 15.4 Platelet Count 296 Mean Platelet Volume 7.2 Neutrophils (%) (Auto) 88.3 Lymphocytes (%) (Auto) 6.4 Monocytes (%) (Auto) 4.7 Eosinophils (%) (Auto) 0.3 Basophils (%) (Auto) 0.3 Neutrophils # (Auto) 13.4 Lymphocytes # (Auto) 1.0 Monocytes # (Auto) 0.7 Eosinophils # (Auto) 0.0 Basophils # (Auto) 0.0 CBC Comment DIFF FINAL Differential Comment Prothrombin Time 13.3 Prothromb Time International Ratio 1.2 Activated Partial Thromboplast Time 32.4 Blood Urea Nitrogen 9 Creatinine 0.53 Random Glucose 173 Total Protein 7.6 Albumin 1.4 Calcium Level 7.7 Alkaline Phosphatase 123 Aspartate Amino Transf (AST/SGOT) 22 Alanine Aminotransferase (ALT/SGPT) 23 Total Bilirubin 0.8 Sodium Level 130 Potassium Level 3.3 Chloride Level 94 Carbon Dioxide Level 28.5 Anion Gap 8 Estimat Glomerular Filtration Rate 156 Lactic Acid Level 1.9 Magnesium Level 1.5 Lipase 80 Urine Collection Type VOIDED Urine Color SUMAN Urine Turbidity CLEAR Urine pH 7.0 Urine Specific Terrell 1.014 Urine Protein NEG Urine Glucose (UA) NEG Urine Ketones NEG Urine Occult Blood NEG Urine Nitrite NEG Urine Bilirubin NEG Urine Leukocyte Esterase TRACE Urine WBC 3-5 Urine WBC Clumps FEW Urine Squamous Epithelial Cells 0-2 Urine Bacteria RARE Urine Yeast (Budding) FEW Microscopic Urinalysis Comment CULTURE INDICATED Stool C. difficile Toxin (PCR) NEGATIVE Stl C. difficile Toxin Epiderm 027 PRESUMPTIVE NEGATIVE Date/Time Source Procedure Growth Status 03/10/17 12:15 Blood Peripheral Aerobic Blood Culture Pending Received 03/10/17 12:15 Blood Peripheral Anaerobic Blood Culture Pending Received 03/10/17 12:50 Urine Random Urine Urine Culture Pending Received Result Diagram: 03/10/17 1135 03/10/17 1135 Septic Shock Reassessment Heart: Regular rate and rhythm Lungs: Clear Skin: Warm Peripheral Pulses: Bounding Right Radial Bounding Left Radial Bounding Right Posterior Tibial Bounding Left Posterior Tibial Capillary Refill: Brisk Caprini VTE Risk Assessment Caprini VTE Risk Assessment: No/Low Risk (score <= 1) Caprini Risk Assessment Model Point Value = 1 Point Value = 2 Point Value = 3 Point Value = 5 Age 41-60 Minor surgery BMI > 25 kg/m2 Swollen legs Varicose veins or History of unexplained or recurrent spontaneous Oral contraceptives or hormone replacement Sepsis (< 1 month) Serious lung disease, including pneumonia (< 1 month) Abnormal pulmonary function Acute myocardial infarction Congestive heart failure (< 1 month) History of inflammatory bowel disease Medical patient at bed rest Age 61-74 Arthroscopic surgery Major open surgery (> 45 min) Laparoscopic surgery (> 45 min) Malignancy Confined to bed (> 72 hours) Immobilizing plaster cast Central venous access Age >= 75 History of VTE Family history of VTE Factor V Leiden Prothrombin [id number] Lupus anticoagulant Anticardiolipin antibodies Elevated serum homocysteine Heparin-induced thrombocytopenia Other congenital or acquired thrombophilia Stroke (< 1 month) Elective arthroplasty Hip, pelvis, or leg fracture Acute spinal cord injury (< 1 month) Prophylaxis Regimen Total Risk Factor Score Risk Level Prophylaxis Regimen 0-1 Low Early ambulation 2 Moderate Order ONE of the following: *Sequential Compression Device (SCD) *Heparin 5000 units SQ BID 3-4 Higher Order ONE of the following medications: *Heparin 5000 units SQ TID *Enoxaparin/Lovenox 40 mg SQ daily (WT < 150 kg, CrCl > 30 mL/min) *Enoxaparin/Lovenox 30 mg SQ daily (WT < 150 kg, CrCl > 10-29 mL/min) *Enoxaparin/Lovenox 30 mg SQ BID (WT < 150 kg, CrCl > 30 mL/min) AND/OR *Sequential Compression Device (SCD) 5 or more Highest Order ONE of the following medications: *Heparin 5000 units SQ TID (Preferred with Epidurals) *Enoxaparin/Lovenox 40 mg SQ daily (WT < 150 kg, CrCl > 30 mL/min) *Enoxaparin/Lovenox 30 mg SQ daily (WT < 150 kg, CrCl > 10-29 mL/min) *Enoxaparin/Lovenox 30 mg SQ BID (WT < 150 kg, CrCl > 30 mL/min) AND *Sequential Compression Device (SCD) Assessment and Plan Problem List: (1) Sepsis ICD Code: A41.9 - Sepsis, unspecified organism Status: Acute Assessment and Plan Assessment and plan 66-year-old male admitted secondary to sepsis and colitis/enteritis Sepsis Treat infection IV hydration Follow vital signs closely Bacterial colitis/enteritis Continue Zosyn Continue clindamycin Surgeon consulted and following Hypocalcemia Calcium gluconate provided today Follow calcium levels IV replacement till patient can take by mouth Replace as needed Cirrhosis Hep C Follow clinically HTN Nothing by mouth for now By mouth treatments held Follow blood pressure As needed IV enalapril COPD No exacerbation Follow clinically Diabetes mellitus type 2 Follow blood sugars Insulin sliding scale Diabetic diet Hx of DVT DVT prophylaxis Lovenox Physician Certification 2 Midnight Certification Type: Admission for Inpatient Services Order for Inpatient Services The services are ordered in accordance with Medicare regulations or non- Medicare payer requirements, as applicable. In the case of services not specified as inpatient-only, they are appropriately provided as inpatient services in accordance with the 2-midnight benchmark. Estimated LOS (days): 4 days is the estimated time the patient will need to remain in the hospital, assuming treatment plan goals are met and no additional complications. Post-Hospital Plan: Home Problem Qualifiers (1) Sepsis: Qualified Codes: A41.9 - Sepsis, unspecified organism Natalio Purcell MD Mar 11, 2017 08:43
[2017-03-11 09:02] LABS: AUTOMATED NEUTROPHIL # 10.6 TH/MM3 (1.8-7.7); BASOPHIL % 0.3 % (0.0-2.0); EOSINOPHIL % 0.3 % (0.0-4.0); HEMATOCRIT 24.9 % (39.0-51.0); HEMO FLAGS DIFF FINAL; LYMPH % 9.1 % (9.0-44.0); LYMPHOCYTE # 1.1 TH/MM3 (1.0-4.8); MEAN CELL VOLUME 82.2 FL (80.0-100.0); MEAN CORPUSCULAR HEMOGLOBIN 26.9 PG (27.0-34.0); MEAN CORPUSCULAR HGB CONC 32.7 % (32.0-36.0); MONO % 5.9 % (0.0-8.0); NEUT % 84.4 % (16.0-70.0); PLATELET COUNT 233 TH/MM3 (150-450); RED BLOOD COUNT 3.04 MIL/MM3 (4.50-5.90); RED CELL DISTRIBUTION WIDTH 16.1 % (11.6-17.2); WHITE BLOOD COUNT 12.5 TH/MM3 (4.0-11.0)
[2017-03-11] MEDS: INSULIN ASPART SUPPLEMENTAL SCALE SQ SCH ×4 (09:39→21:22)
[2017-03-11] MEDS ORDERED: INFLUENZA VIRUS VACCINE (QUADRIVALENT) 0.5 ML SYR IM ONE (10:00)
[2017-03-11 10:21] LABS: BICARBONATE 25.6 MEQ/L (21.0-32.0); POTASSIUM 3.6 MEQ/L (3.5-5.1); TOTAL BILIRUBIN ADULT 0.9 MG/DL (0.2-1.0)
[2017-03-11 10:32] LABS: CALCIUM-PROTEIN CORRECTED 7.4 MG/DL (8.5-10.1)
--- NOTE | 2017-03-11 10:44 | MB ---
cc: BRET BRITT DATE OF CONSULTATION: 03/11/2017 REASON FOR CONSULTATION: Abdominal pain. HISTORY This is a 66-year-old gentleman who came in the emergency room complaining of nausea and vomiting, abdominal cramping ever since he ran out of dilaudid. He was admitted to the hospital because he was having abdominal pain. Surgery was consulted to see if there is any acute surgical intervention required for his abdominal crampiness. PAST MEDICAL HISTORY: Pertinent past history includes last month he underwent emergency surgery for usual infection in the small bowel, requiring two operations which he did quite well with. Part of this was due to the fact that his sugars were in high 900 range. He was in a nursing facility and then got discharged then apparently ran out of his Dilaudid and possibly went to some narcotic withdrawal. He mainly complains of just aching all over and abdominal crampiness. He was eating and having bowel movements. PAST MEDICAL HISTORY: 1. Past history is significant for cirrhosis 2. Esophageal varices. 3. Other multiple medical issues. The most recent it is small bowel colon resection which he did quite well with. 4. He is a history of cirrhosis. 5. Hepatitis C 6. Uncontrolled diabetes. ALLERGIES REVIEWED ON THE COMPUTER. MEDICATIONS: Reviewed numerous in the computer will not be repeated. PHYSICAL EXAMINATION: IN GENERAL: On examination he is laying in bed. NECK: His neck is supple. CHEST: Clear. HEART: Regular rate. ABDOMEN: Postsurgical, with a healed scar. He has some mild soreness throughout the abdomen and he has good bowel sounds. There is no rebound or guarding. EXTREMITIES: He moves all extremities well, no clubbing, cyanosis or edema. NEUROLOGIC: He is alert, oriented will be frustrated with the medical condition. LABORATORY FINDINGS: His white count was 15 yesterday today it is 12. Chemistry showed sugar to be 173, calcium 7.7, alk phos 123. Potassium is 3.3. His lactic acid of 1.9, magnesium 1.5. IMAGING STUDIES: Imaging studies of his chest were clear. CT abdomen was negative for any acute injury does have poor hypertension, distended portal vein, cirrhosis of the liver and enlarged spleen. ASSESSMENT/PLAN 66-year-old gentleman who underwent previous abdominal surgery for infection of his small bowel with reanastomosis has done well from that standpoint apparently he is going through some narcotic withdrawal and the symptomatology consistent with that I see no urgent surgical intervention required. To treat his low magnesium, low potassium and other electrolyte abnormalities and his drug withdrawal symptoms. We follow along during the hospitalization at a distance. MD FERNANDEZ Dietz/steph /9:37 AM /10:32 AM
[2017-03-11 12:20] VITALS: BP 144/83; PULSE 102; RESP 22; TEMP 98.5; O2SAT 99
[2017-03-11 15:54] LABS: HEMOGLOBIN A1a 1.6 %; HEMOGLOBIN A1b 1.1 %; HEMOGLOBIN Ao 80.4 %; HEMOGLOBIN F 1.6 %; HEMOGLOBIN LA1C 1.6 %
[2017-03-11] MEDS: ENOXAPARIN SODIUM 40 MG/0.4 ML SYRINGE SQ SCH (15:59)
[2017-03-11 16:00] VITALS: BP 136/83; PULSE 104; RESP 21; TEMP 98.8; O2SAT 98
[2017-03-11] MEDS ORDERED: GLUCAGON 1 MG/ML VIAL OTHER PRN (17:15)
[2017-03-11] MEDS ORDERED: CALCIUM GLUCONATE INJ 1 GM in SODIUM CHLORIDE 0.9% INJ 90 ML IV ONE (17:30)
[2017-03-11 20:00] VITALS: BP 150/83; PULSE 106; PULSE 113; RESP 20; TEMP 99.9; O2SAT 98
[2017-03-12] VITALS: BP 141/86; PULSE 117; RESP 20; TEMP 99.8; O2SAT 98
[2017-03-12] MEDS: HYDROmorphone HCL PF 2 MG/ML VIAL IV PRN ×8 (00:31→21:31)
[2017-03-12] MEDS: PIPERACIL-TAZO 4.5 GM PREMIX 100 ML IV SCH ×4 (00:32→19:29)
[2017-03-12] MEDS: KETOROLAC TROMETHAMINE 30 MG/ML (IVP) VIAL IV PUSH PRN ×2 (02:15→17:15)
[2017-03-12] MEDS: FAMOTIDINE 20 MG/2 ML VIAL IV PUSH SCH ×2 (03:25→15:28)
[2017-03-12 04:00] VITALS: BP 140/84; PULSE 110; RESP 20; TEMP 99.1; O2SAT 100
[2017-03-12] MEDS: CLINDAMYCIN INJ 600 MG in SODIUM CHLORIDE 0.9% INJ 100 ML IV SCH ×3 (06:16→23:34)
[2017-03-12 08:00] VITALS: BP 140/82; PULSE 102; RESP 18; TEMP 98.5; O2SAT 97
[2017-03-12 08:31] LABS: AUTOMATED NEUTROPHIL # 10.6 TH/MM3 (1.8-7.7); BASOPHIL % 0.1 % (0.0-2.0); EOSINOPHIL % 0.2 % (0.0-4.0); HEMATOCRIT 24.6 % (39.0-51.0); HEMO FLAGS DIFF FINAL; LYMPH % 10.1 % (9.0-44.0); LYMPHOCYTE # 1.3 TH/MM3 (1.0-4.8); MEAN CELL VOLUME 82.1 FL (80.0-100.0); MEAN CORPUSCULAR HEMOGLOBIN 26.9 PG (27.0-34.0); MEAN CORPUSCULAR HGB CONC 32.7 % (32.0-36.0); MONO % 5.3 % (0.0-8.0); NEUT % 84.3 % (16.0-70.0); PLATELET COUNT 247 TH/MM3 (150-450); RED CELL DISTRIBUTION WIDTH 16.6 % (11.6-17.2); WHITE BLOOD COUNT 12.5 TH/MM3 (4.0-11.0)
[2017-03-12 08:59] LABS: BICARBONATE 22.8 MEQ/L (21.0-32.0); CALCIUM-PROTEIN CORRECTED 7.6 MG/DL (8.5-10.1); MAGNESIUM 1.5 MG/DL (1.5-2.5); POTASSIUM 3.3 MEQ/L (3.5-5.1); TOTAL BILIRUBIN ADULT 0.6 MG/DL (0.2-1.0)
[2017-03-12] MEDS: GABAPENTIN 100 MG CAP PO SCH ×3 (09:24→18:26)
[2017-03-12] MEDS: SODIUM CHLORIDE 0.9% FLUSH 10 ML FLUSH IV FLUSH SCH ×2 (09:27→20:46)
[2017-03-12] MEDS: INSULIN ASPART SUPPLEMENTAL SCALE SQ SCH ×4 (09:28→21:00)
[2017-03-12] MEDS: BUDESONIDE-FORMOTEROL 160/4.5 MCG INHALER INH SCH ×2 (09:28→20:46)
[2017-03-12] MEDS: SODIUM CHLOR 0.9% 1000 ML INJ 1,000 ML IV SCH ×3 (09:42→20:46)
[2017-03-12 12:00] VITALS: BP 154/91; PULSE 98; RESP 18; TEMP 97.6; O2SAT 98
[2017-03-12] MEDS: ENOXAPARIN SODIUM 40 MG/0.4 ML SYRINGE SQ SCH (15:28)
[2017-03-12 16:00] VITALS: BP 160/84; PULSE 110; RESP 18; TEMP 98.1; O2SAT 98
--- NOTE | 2017-03-12 16:36 | HHI.PR ---
Subjective Remarks No significant improvement in abdominal pain. There is improvement in leukocytosis. Hypokalemia present this morning. Objective Vital Signs Date Time Temp Pulse Resp B/P (MAP) Pulse Ox O2 Delivery O2 Flow Rate FiO2 03/12/17 16:00 98.1 110 18 160/84 (109) 98 03/12/17 12:00 97.6 98 18 154/91 (112) 98 03/12/17 08:00 98.5 102 18 140/82 (101) 97 03/12/17 06:47 18 03/12/17 04:00 99.1 110 20 140/84 (102) 100 03/12/17 03:15 18 03/12/17 00:00 99.8 117 20 141/86 (104) 98 03/11/17 20:00 106 03/11/17 20:00 99.9 113 20 150/83 (105) 98 I/O 03/11/17 03/11/17 03/11/17 03/12/17 03/12/17 03/12/17 07:00 15:00 23:00 07:00 15:00 23:00 Intake Total 680 ml 120 ml 3208 ml 2040 ml 100 ml Output Total 1300 ml 1400 ml 500 ml Balance -620 ml 120 ml 1808 ml 1540 ml 100 ml Intake Oral 680 ml 120 ml 1480 ml 450 ml IV Total 1728 ml 1590 ml 100 ml Output Urine Total 1300 ml 1400 ml 500 ml # Bowel Movements 4 3 Result Diagram: 03/12/17 0649 03/12/17 0649 Objective Remarks GENERAL: NAD, A&Ox3 HEAD: Normocephalic. NECK: Supple, trachea midline. No lymphadenopathy. EYES: No scleral icterus. No injection or drainage. CARDIOVASCULAR: Regular rate and rhythm without murmurs, gallops, or rubs. RESPIRATORY: Breath sounds equal bilaterally. No accessory muscle use. GASTROINTESTINAL: Abdomen soft, nondistended. Tenderness at right lower quadrant. MUSCULOSKELETAL: No cyanosis, or edema. SKIN: Warm and dry. NEURO: No focal neurological deficitis. A/P Problem List: (1) Sepsis ICD Code: A41.9 - Sepsis, unspecified organism Status: Acute Assessment and Plan Assessment and plan 66-year-old male admitted secondary to sepsis and colitis/enteritis Sepsis Improving Treat infection IV hydration Follow vital signs closely Bacterial colitis/enteritis Continue Zosyn Continue clindamycin Surgeon consulted and following Hypokalemia Follow and replace as needed Hypocalcemia Calcium gluconate provided today Follow calcium levels IV replacement till patient can take by mouth Replace as needed Cirrhosis Hep C Follow clinically HTN Nothing by mouth for now By mouth treatments held Follow blood pressure As needed IV enalapril COPD No exacerbation Follow clinically Diabetes mellitus type 2 Follow blood sugars Insulin sliding scale Diabetic diet Hx of DVT DVT prophylaxis Lovenox Problem Qualifiers (1) Sepsis: Qualified Codes: A41.9 - Sepsis, unspecified organism Natalio Purcell MD Mar 12, 2017 16:36
--- NOTE | 2017-03-12 19:07 | HHI.PR ---
cc: Bret Britt MD Subjective Subjective Notes DAILY PROGRESS NOTE FOR SURGICAL ATTENDING, DR. BRET BRITT Patient feels better Having a lot of diarrhea Tolerating diet Abdominal pain improved Objective Vitals/I&O Vital Signs Date Time Temp Pulse Resp B/P (MAP) Pulse Ox O2 Delivery O2 Flow Rate FiO2 03/12/17 16:00 98.1 110 18 160/84 (109) 98 03/10/17 13:25 Room Air Labs Laboratory Tests Test 03/12/17 06:49 White Blood Count 12.5 Red Blood Count 3.00 Hemoglobin 8.1 Hematocrit 24.6 Mean Corpuscular Volume 82.1 Mean Corpuscular Hemoglobin 26.9 Mean Corpuscular Hemoglobin Concent 32.7 Red Cell Distribution Width 16.6 Platelet Count 247 Mean Platelet Volume 7.4 Neutrophils (%) (Auto) 84.3 Lymphocytes (%) (Auto) 10.1 Monocytes (%) (Auto) 5.3 Eosinophils (%) (Auto) 0.2 Basophils (%) (Auto) 0.1 Neutrophils # (Auto) 10.6 Lymphocytes # (Auto) 1.3 Monocytes # (Auto) 0.7 Eosinophils # (Auto) 0.0 Basophils # (Auto) 0.0 CBC Comment DIFF FINAL Differential Comment Blood Urea Nitrogen 13 Creatinine 0.67 Random Glucose 220 Total Protein 6.3 Albumin 1.2 Calcium Level 7.2 Phosphorus Level 2.7 Magnesium Level 1.5 Alkaline Phosphatase 129 Aspartate Amino Transf (AST/SGOT) 18 Alanine Aminotransferase (ALT/SGPT) 18 Total Bilirubin 0.6 Sodium Level 133 Potassium Level 3.3 Chloride Level 101 Carbon Dioxide Level 22.8 Anion Gap 9 Estimat Glomerular Filtration Rate 119 Protein Corrected Calcium 7.6 Date/Time Source Procedure Growth Status 03/10/17 12:15 Blood Peripheral Aerobic Blood Culture - Preliminary Staphylococcus Aureus Resulted 03/10/17 12:15 Anaerobic Blood Culture - Preliminary Staphylococcus Aureus Resulted 03/10/17 12:50 Urine Random Urine Urine Culture - Preliminary Staphylococcus Aureus Resulted Radiology Last Impressions Chest X-Ray 03/10/17 0000 Signed Impressions: Service Date/Time: Friday, March 10, 2017 12:09 - CONCLUSION: No acute disease. There is no evidence of pneumonia. Jase Estes MD Abdomen/Pelvis CT 03/10/17 0000 Signed Impressions: Service Date/Time: Friday, March 10, 2017 12:08 - CONCLUSION: 1. Coarsened appearance of the liver identified previously actually is less prominent on the current exam. In addition, there is less ascites. 2. However, the portal vein appears to be more prominent and there is interval enlargement of the spleen now measures 17.7 cm in greatest SI dimension. Findings are characteristic of increasing portal hypertension. 3. Borderline prominent right inguinal lymph nodes are likely reactive. 4. Small bilateral pleural effusions with concomitant atelectatic changes. Stanton Beaulieu MD Cardiovascular: Regular Lungs: Clear Abdomen: Non-tender Extremities: No edema, Perfused A/P Assessment and Plan 66-year-old gentleman who had positive blood cultures for staph aureus Also had a urinalysis positive for staph aureus. Sensitivity still pending No surgical problems at this point He does have fair amount of diarrhea which I suspect is from his septic shock that appears to be resolving. I'll advance his diet Start Imodium Attending Statement NOTE FOR SURGICAL ATTENDING, DR. BRET BRITT I attest that I had a [id number] encounter with the patient on the same day, and personally performed and documented my assessment and findings in the medical record. The following services were provided during this hospital visit: Chart data review, vital sign assessments/reviewing monitor data Review of consultations notes if present. Medication orders/review and/or management Ordering and/or reviewing lab tests Ordering and/or interpreting/reviewing x-rays and/or diagnostic studies Care of the patient and discussion of the patient with the care team Documentation time To help prompt me to consider important information that might be impacting today's encounter and assessment, information from prior notes written by myself or my colleagues may have been "brought forward/copy and pasted" into today's note. Bret Britt MD Mar 12, 2017 19:06
[2017-03-12 20:00] VITALS: BP 135/82; PULSE 108; PULSE 110; RESP 17; TEMP 98.8; O2SAT 99
[2017-03-13] VITALS (7 sets, daily range): BP systolic 135–152; BP diastolic 82–91; PULSE 112–120; RESP 17–22; TEMP 96.9–100.1; O2SAT 97–98
[2017-03-13] MEDS: HYDROmorphone HCL PF 2 MG/ML VIAL IV PRN ×9 (00:25→23:44)
[2017-03-13] MEDS: PIPERACIL-TAZO 4.5 GM PREMIX 100 ML IV SCH ×4 (00:25→17:40)
[2017-03-13] MEDS: FAMOTIDINE 20 MG/2 ML VIAL IV PUSH SCH ×2 (03:04→15:50)
[2017-03-13] MEDS: KETOROLAC TROMETHAMINE 30 MG/ML (IVP) VIAL IV PUSH PRN (05:20)
[2017-03-13] MEDS: CLINDAMYCIN INJ 600 MG in SODIUM CHLORIDE 0.9% INJ 100 ML IV SCH ×2 (06:28→15:50)
[2017-03-13] MEDS: INSULIN ASPART SUPPLEMENTAL SCALE SQ SCH ×4 (08:27→20:35)
[2017-03-13] MEDS: BUDESONIDE-FORMOTEROL 160/4.5 MCG INHALER INH SCH ×2 (08:28→20:37)
[2017-03-13] MEDS: GABAPENTIN 100 MG CAP PO SCH ×3 (08:28→17:40)
[2017-03-13] MEDS: SODIUM CHLORIDE 0.9% FLUSH 10 ML FLUSH IV FLUSH SCH ×2 (08:28→20:34)
[2017-03-13 09:03] LABS: AUTOMATED NEUTROPHIL # 10.4 TH/MM3 (1.8-7.7); BASOPHIL % 0.3 % (0.0-2.0); EOSINOPHIL % 0.3 % (0.0-4.0); HEMATOCRIT 27.1 % (39.0-51.0); HEMO FLAGS DIFF FINAL; LYMPHOCYTE # 1.1 TH/MM3 (1.0-4.8); MEAN CELL VOLUME 82.8 FL (80.0-100.0); MEAN CORPUSCULAR HEMOGLOBIN 27.1 PG (27.0-34.0); MEAN CORPUSCULAR HGB CONC 32.7 % (32.0-36.0); MONO % 5.3 % (0.0-8.0); NEUT % 85.1 % (16.0-70.0); PLATELET COUNT 235 TH/MM3 (150-450); RED BLOOD COUNT 3.27 MIL/MM3 (4.50-5.90); RED CELL DISTRIBUTION WIDTH 16.8 % (11.6-17.2); WHITE BLOOD COUNT 12.2 TH/MM3 (4.0-11.0)
[2017-03-13 09:22] LABS: ALT (GPT) 16 U/L (12-78); ANION GAP 9 MEQ/L (5-15); AST (GOT) 21 U/L (15-37); BICARBONATE 20.2 MEQ/L (21.0-32.0); BLOOD UREA NITROGEN 9 MG/DL (7-18); CHLORIDE 104 MEQ/L (98-107); GLOMERULAR FILTRATION RATE 138 ML/MIN (>89); POTASSIUM 3.8 MEQ/L (3.5-5.1); SODIUM (NA) 133 MEQ/L (136-145)
[2017-03-13 09:34] LABS: ALKALINE PHOSPHATASE 96 U/L (45-117); TOTAL BILIRUBIN ADULT 0.6 MG/DL (0.2-1.0)
[2017-03-13] MEDS: SODIUM CHLOR 0.9% 1000 ML INJ 1,000 ML IV SCH ×2 (11:33→23:45)
[2017-03-13] MEDS ORDERED: NALOXONE HCL 0.4 MG/ML AMP IV PUSH PRN (14:00)
--- NOTE | 2017-03-13 15:33 | HHI.PR ---
Subjective Remarks Blood work and vital signs show improvement. Patient is reporting increasing right lower quadrant abdominal pain which she says is worsening. No other complaints. Diarrhea is present. Objective Vital Signs Date Time Temp Pulse Resp B/P (MAP) Pulse Ox O2 Delivery O2 Flow Rate FiO2 03/13/17 12:00 97.5 117 20 150/86 (107) 97 03/13/17 08:00 98.6 114 22 137/91 (106) 98 03/13/17 05:59 20 03/13/17 05:59 20 03/13/17 04:00 97.2 120 17 148/86 (106) 98 03/13/17 00:00 99.4 112 17 135/82 (99) 98 03/12/17 20:00 110 03/12/17 20:00 98.8 108 17 135/82 (99) 99 03/12/17 16:00 98.1 110 18 160/84 (109) 98 I/O 03/12/17 03/12/17 03/12/17 03/13/17 03/13/17 03/13/17 07:00 15:00 23:00 07:00 15:00 23:00 Intake Total 2040 ml 100 ml 2266 ml 1675 ml 340 ml Output Total 500 ml 350 ml 600 ml Balance 1540 ml 100 ml 1916 ml 1075 ml 340 ml Intake Oral 450 ml 1320 ml 240 ml 240 ml IV Total 1590 ml 100 ml 946 ml 1435 ml 100 ml Output Urine Total 500 ml 350 ml 600 ml # Bowel Movements 3 3 Result Diagram: 03/13/17 0741 03/13/17 07 Objective Remarks GENERAL: NAD, A&Ox3 HEAD: Normocephalic. NECK: Supple, trachea midline. No lymphadenopathy. EYES: No scleral icterus. No injection or drainage. CARDIOVASCULAR: Regular rate and rhythm without murmurs, gallops, or rubs. RESPIRATORY: Breath sounds equal bilaterally. No accessory muscle use. GASTROINTESTINAL: Abdomen soft, nondistended. Tenderness at right lower quadrant. MUSCULOSKELETAL: No cyanosis, or edema. SKIN: Warm and dry. NEURO: No focal neurological deficitis. A/P Problem List: (1) Sepsis ICD Code: A41.9 - Sepsis, unspecified organism Status: Acute Assessment and Plan Assessment and plan 66-year-old male admitted secondary to sepsis and colitis/enteritis, diarrhea. Repeat CT of abdomen. Repeat C. difficile screen. Continue to monitor electrolytes and replace as needed. Sepsis Improving Treat infection IV hydration Follow vital signs closely Bacterial colitis/enteritis Continue Zosyn Continue clindamycin Surgeon consulted and following Hypokalemia Follow and replace as needed Hypocalcemia Calcium gluconate provided today Follow calcium levels IV replacement till patient can take by mouth Replace as needed Cirrhosis Hep C Follow clinically HTN Nothing by mouth for now By mouth treatments held Follow blood pressure As needed IV enalapril COPD No exacerbation Follow clinically Diabetes mellitus type 2 Follow blood sugars Insulin sliding scale Diabetic diet Hx of DVT DVT prophylaxis Lovenox Problem Qualifiers (1) Sepsis: Qualified Codes: A41.9 - Sepsis, unspecified organism Natalio Purcell MD Mar 13, 2017 15:33
[2017-03-13] MEDS: ENOXAPARIN SODIUM 40 MG/0.4 ML SYRINGE SQ SCH (15:50)
--- NOTE | 2017-03-13 15:52 | RADRPT ---
EXAM DATE/TIME: 03/13/2017 15:19 [place] COMPARISON: CT ABDOMEN & PELVIS W/O CONTRAST, March 10, 2017, 12:08. INDICATIONS : Abdomen pain. ORAL CONTRAST: No oral contrast ingested. RADIATION DOSE: 10.28 CTDIvol (mGy) MEDICAL HISTORY : Cardiovascular disease. Hypertension. Hepatitis C.Liver disease. SURGICAL HISTORY : Splenectomy. Appendectomy.Cholecystectomy. ENCOUNTER: Initial ACUITY: 1 day PAIN SCALE: 10/10 LOCATION: Bilateral abdomen TECHNIQUE: Volumetric scanning of the abdomen and pelvis was performed. Using automated exposure control and ad justment of the mA and/or kV according to patient size, radiation dose was kept as low as reasonably achievable to obtain optimal diagnostic quality images. DICOM format image data is available electro nically for review and comparison. FINDINGS: The examination demonstrates moderate size bilateral effusions and consolidative changes in both lowe r lobes. There is atherosclerotic plaque in the coronary arteries. The liver and spleen are enlarged. There is ascites within the upper abdomen. No free air is seen. The pancreas, adrenal glands and kidneys are intact. There surgical sutures in the ascending colon. There are no findings to indicate a bowel obstruction. There is ascites diffusely throughout the pelvis. No iliac or inguinal adenopathy is present. The exam does demonstrate mild diffuse anasarca. There are degenerative changes within the spine. CONCLUSION: 1. Moderate-sized bilateral effusions with consolidative changes. 2. Moderate hepatosplenomegaly. 3. Ascites diffusely throughout the abdomen. 4. Compared to previous the effusions have enlarged. The ascites is new. The liver and spleen are sta ble in size. Natalio Way MD on March 13, 2017 at 15:48 Board Certified Radiologist. This report was verified electronically.
--- NOTE | 2017-03-13 17:26 | HHI.PR ---
cc: Theodore Jordan MD Subjective Subjective Notes DAILY PROGRESS NOTE FOR SURGICAL ATTENDING, DR. THEODORE JORDAN Still has generalized aches and pains Tolerating by mouth and having bowel movements Had undergone a new CT scan Objective Vitals/I&O Vital Signs Date Time Temp Pulse Resp B/P (MAP) Pulse Ox O2 Delivery O2 Flow Rate FiO2 03/13/17 16:00 96.9 113 20 152/88 (109) 97 03/10/17 13:25 Room Air Labs Laboratory Tests Test 03/13/17 07:41 White Blood Count 12.2 Red Blood Count 3.27 Hemoglobin 8.9 Hematocrit 27.1 Mean Corpuscular Volume 82.8 Mean Corpuscular Hemoglobin 27.1 Mean Corpuscular Hemoglobin Concent 32.7 Red Cell Distribution Width 16.8 Platelet Count 235 Mean Platelet Volume 7.5 Neutrophils (%) (Auto) 85.1 Lymphocytes (%) (Auto) 9.0 Monocytes (%) (Auto) 5.3 Eosinophils (%) (Auto) 0.3 Basophils (%) (Auto) 0.3 Neutrophils # (Auto) 10.4 Lymphocytes # (Auto) 1.1 Monocytes # (Auto) 0.6 Eosinophils # (Auto) 0.0 Basophils # (Auto) 0.0 CBC Comment DIFF FINAL Differential Comment Blood Urea Nitrogen 9 Creatinine 0.59 Random Glucose 204 Total Protein 6.9 Albumin 1.2 Calcium Level 7.5 Alkaline Phosphatase 96 Aspartate Amino Transf (AST/SGOT) 21 Alanine Aminotransferase (ALT/SGPT) 16 Total Bilirubin 0.6 Sodium Level 133 Potassium Level 3.8 Chloride Level 104 Carbon Dioxide Level 20.2 Anion Gap 9 Estimat Glomerular Filtration Rate 138 Date/Time Source Procedure Growth Status 03/10/17 12:15 Blood Peripheral Aerobic Blood Culture - Final Staphylococcus Aureus Complete 03/10/17 12:15 Anaerobic Blood Culture - Final Staphylococcus Aureus Complete 03/10/17 12:50 Urine Random Urine Urine Culture - Final Staphylococcus Aureus Complete Radiology Last Impressions Abdomen/Pelvis CT 03/13/17 0000 Signed Impressions: Service Date/Time: February 15:19 - CONCLUSION: 1. Moderate-sized bilateral effusions with consolidative changes. 2. Moderate hepatosplenomegaly. 3. Ascites diffusely throughout the abdomen. 4. Compared to previous the effusions have enlarged. The ascites is new. The liver and spleen are stable in size. Natalio Way MD Chest X-Ray 03/10/17 0000 Signed Impressions: Service Date/Time: Friday, March 10, 2017 12:09 - CONCLUSION: No acute disease. There is no evidence of pneumonia. Jase Estes MD Last Impressions Chest X-Ray 03/10/17 0000 Signed Impressions: Service Date/Time: Friday, March 10, 2017 12:09 - CONCLUSION: No acute disease. There is no evidence of pneumonia. Jase Estes MD Abdomen/Pelvis CT 03/10/17 0000 Signed Impressions: Service Date/Time: Friday, March 10, 2017 12:08 - CONCLUSION: 1. Coarsened appearance of the liver identified previously actually is less prominent on the current exam. In addition, there is less ascites. 2. However, the portal vein appears to be more prominent and there is interval enlargement of the spleen now measures 17.7 cm in greatest SI dimension. Findings are characteristic of increasing portal hypertension. 3. Borderline prominent right inguinal lymph nodes are likely reactive. 4. Small bilateral pleural effusions with concomitant atelectatic changes. Stanton Beaulieu MD Cardiovascular: Regular Lungs: Clear Abdomen: Non-distended, Other (sore) Extremities: Perfused, Other (mild edema) A/P Problem List: (1) Ascites of liver ICD Codes: R18.8 - Other ascites Status: Chronic (2) Pleural effusion on left ICD Codes: J90 - Pleural effusion, not elsewhere classified Status: Acute (3) Pleural effusion on right ICD Codes: J90 - Pleural effusion, not elsewhere classified Status: Acute (4) Staphylococcus aureus bacteremia with sepsis ICD Codes: A41.01 - Sepsis due to Methicillin susceptible Staphylococcus aureus Status: Acute (5) Urinary tract infection ICD Codes: N39.0 - Urinary tract infection, site not specified Status: Acute (6) History of esophageal varices ICD Codes: Z87.19 - History of esophageal varices Status: Chronic (7) Hyperglycemia ICD Codes: R73.9 - Hyperglycemia, unspecified Status: Chronic (8) Chronic pain ICD Codes: G89.29 - Chronic pain Status: Chronic (9) Cirrhosis of liver ICD Codes: K74.60 - Unspecified cirrhosis of liver Status: Chronic (10) Chronic obstructive pulmonary disease ICD Codes: J44.9 - Chronic obstructive pulmonary disease Status: Chronic (11) Insulin dependent diabetes mellitus ICD Codes: E11.9 - Type 2 diabetes mellitus without complications; Z79.4 - custodial (current) use of insulin Status: Chronic Assessment and Plan 66-year-old gentleman who had positive blood cultures for staph aureus Also had a urinalysis positive for staph aureus. Sensitivity still pending Repeat CT scan of abdomen shows new bilateral pleural effusions and ascites I suspect as a result of his malnourishment and albumin being 1.2 No surgical problems at this point Diarrhea is resolving I'll advance his diet Start Imodium Attending Statement NOTE FOR SURGICAL ATTENDING, DR. THEODORE JORDAN I attest that I had a [id number] encounter with the patient on the same day, and personally performed and documented my assessment and findings in the medical record. The following services were provided during this hospital visit: Chart data review, vital sign assessments/reviewing monitor data Review of consultations notes if present. Medication orders/review and/or management Ordering and/or reviewing lab tests Ordering and/or interpreting/reviewing x-rays and/or diagnostic studies Care of the patient and discussion of the patient with the care team Documentation time To help prompt me to consider important information that might be impacting today's encounter and assessment, information from prior notes written by myself or my colleagues may have been "brought forward/copy and pasted" into today's note. Problem Qualifiers (1) Urinary tract infection: (2) Cirrhosis of liver: Theodore Jordan MD Mar 13, 2017 17:26
[2017-03-13] MEDS: FAMOTIDINE 20 MG TAB PO SCH (20:32)
[2017-03-13 23:47] LABS: C. DIFF EPI 027 PRESUMPTIVE NEGATIVE (NEGATIVE)
[2017-03-14] VITALS (8 sets, daily range): BP systolic 138–172; BP diastolic 85–100; PULSE 103–127; RESP 17–22; TEMP 97.5–99.8; O2SAT 97–99
[2017-03-14] MEDS: CLINDAMYCIN INJ 600 MG in SODIUM CHLORIDE 0.9% INJ 100 ML IV SCH ×4 (00:31→23:59)
[2017-03-14] MEDS: KETOROLAC TROMETHAMINE 30 MG/ML (IVP) VIAL IV PUSH PRN (01:25)
[2017-03-14] MEDS: PIPERACIL-TAZO 4.5 GM PREMIX 100 ML IV SCH ×4 (01:28→19:02)
[2017-03-14] MEDS: HYDROmorphone HCL PF 2 MG/ML VIAL IV PRN ×7 (03:38→21:36)
[2017-03-14 05:57] LABS: AUTOMATED NEUTROPHIL # 8.8 TH/MM3 (1.8-7.7); BASOPHIL % 0.3 % (0.0-2.0); EOSINOPHIL # 0.1 TH/MM3 (0-0.4); EOSINOPHIL % 0.5 % (0.0-4.0); HEMATOCRIT 23.3 % (39.0-51.0); HEMO FLAGS DIFF FINAL; LYMPH % 13.8 % (9.0-44.0); LYMPHOCYTE # 1.5 TH/MM3 (1.0-4.8); MEAN CELL VOLUME 82.1 FL (80.0-100.0); MEAN CORPUSCULAR HEMOGLOBIN 27.2 PG (27.0-34.0); MEAN CORPUSCULAR HGB CONC 33.2 % (32.0-36.0); NEUT % 79.4 % (16.0-70.0); PLATELET COUNT 218 TH/MM3 (150-450); RED BLOOD COUNT 2.83 MIL/MM3 (4.50-5.90); RED CELL DISTRIBUTION WIDTH 16.4 % (11.6-17.2); WHITE BLOOD COUNT 11.1 TH/MM3 (4.0-11.0)
[2017-03-14 06:28] LABS: BICARBONATE 21.4 MEQ/L (21.0-32.0); CALCIUM-PROTEIN CORRECTED 7.7 MG/DL (8.5-10.1); POTASSIUM 3.6 MEQ/L (3.5-5.1); TOTAL BILIRUBIN ADULT 0.5 MG/DL (0.2-1.0)
[2017-03-14] MEDS ORDERED: CALCIUM GLUCONATE INJ 1 GM in SODIUM CHLORIDE 0.9% INJ 90 ML IV ONE (09:00)
[2017-03-14] MEDS: SODIUM CHLORIDE 0.9% FLUSH 10 ML FLUSH IV FLUSH SCH ×2 (09:00→20:52)
[2017-03-14] MEDS: FAMOTIDINE 20 MG TAB PO SCH ×2 (09:18→20:54)
[2017-03-14] MEDS: GABAPENTIN 100 MG CAP PO SCH ×3 (09:18→18:24)
[2017-03-14] MEDS: INSULIN ASPART SUPPLEMENTAL SCALE SQ SCH ×4 (09:20→21:04)
[2017-03-14] MEDS: BUDESONIDE-FORMOTEROL 160/4.5 MCG INHALER INH SCH ×2 (09:20→21:09)
--- NOTE | 2017-03-14 11:10 | HHI.PR ---
cc: Theodore Jordan MD Subjective Subjective Notes DAILY PROGRESS NOTE FOR SURGICAL ATTENDING, DR. THEODORE JORDAN Still having some mild abdominal discomfort Like to drinking ensure shakes Good bowel activity Ambulating halls with assistance White blood count is low i might need a transfusion Objective Vitals/I&O Vital Signs Date Time Temp Pulse Resp B/P (MAP) Pulse Ox O2 Delivery O2 Flow Rate FiO2 03/14/17 08:00 98.3 103 19 147/86 (106) 99 03/10/17 13:25 Room Air Labs Laboratory Tests Test 03/13/17 19:55 03/14/17 05:22 Stool C. difficile Toxin (PCR) NEGATIVE Stl C. difficile Toxin Epiderm 027 PRESUMPTIVE NEGATIVE White Blood Count 11.1 Red Blood Count 2.83 Hemoglobin 7.7 Hematocrit 23.3 Mean Corpuscular Volume 82.1 Mean Corpuscular Hemoglobin 27.2 Mean Corpuscular Hemoglobin Concent 33.2 Red Cell Distribution Width 16.4 Platelet Count 218 Mean Platelet Volume 7.4 Neutrophils (%) (Auto) 79.4 Lymphocytes (%) (Auto) 13.8 Monocytes (%) (Auto) 6.0 Eosinophils (%) (Auto) 0.5 Basophils (%) (Auto) 0.3 Neutrophils # (Auto) 8.8 Lymphocytes # (Auto) 1.5 Monocytes # (Auto) 0.7 Eosinophils # (Auto) 0.1 Basophils # (Auto) 0.0 CBC Comment DIFF FINAL Differential Comment Blood Urea Nitrogen 10 Creatinine 0.59 Random Glucose 164 Total Protein 6.5 Albumin 1.2 Calcium Level 7.4 Alkaline Phosphatase 84 Aspartate Amino Transf (AST/SGOT) 21 Alanine Aminotransferase (ALT/SGPT) 15 Total Bilirubin 0.5 Sodium Level 136 Potassium Level 3.6 Chloride Level 108 Carbon Dioxide Level 21.4 Anion Gap 7 Estimat Glomerular Filtration Rate 138 Protein Corrected Calcium 7.7 Date/Time Source Procedure Growth Status 03/10/17 12:15 Blood Peripheral Aerobic Blood Culture - Final Staphylococcus Aureus Complete 03/10/17 12:15 Anaerobic Blood Culture - Final Staphylococcus Aureus Complete 03/10/17 12:50 Urine Random Urine Urine Culture - Final Staphylococcus Aureus Complete Radiology Last Impressions Abdomen/Pelvis CT 03/13/17 Signed Impressions: Service Date/Time: February 15:19 - CONCLUSION: 1. Moderate-sized bilateral effusions with consolidative changes. 2. Moderate hepatosplenomegaly. 3. Ascites diffusely throughout the abdomen. 4. Compared to previous the effusions have enlarged. The ascites is new. The liver and spleen are stable in size. Natalio Way MD Chest X-Ray 03/10/17 Signed Impressions: Service Date/Time: Friday, March 10, 2017 12:09 - CONCLUSION: No acute disease. There is no evidence of pneumonia. Jase Estes MD Last Impressions Chest X-Ray 03/10/17 Signed Impressions: Service Date/Time: Friday, March 10, 2017 12:09 - CONCLUSION: No acute disease. There is no evidence of pneumonia. Jase Estes MD Abdomen/Pelvis CT 03/10/17 Signed Impressions: Service Date/Time: Friday, March 10, 2017 12:08 - CONCLUSION: 1. Coarsened appearance of the liver identified previously actually is less prominent on the current exam. In addition, there is less ascites. 2. However, the portal vein appears to be more prominent and there is interval enlargement of the spleen now measures 17.7 cm in greatest SI dimension. Findings are characteristic of increasing portal hypertension. 3. Borderline prominent right inguinal lymph nodes are likely reactive. 4. Small bilateral pleural effusions with concomitant atelectatic changes. Stanton Beaulieu MD Cardiovascular: Regular Lungs: Clear Abdomen: Other (mild discomfort wound healed), BS normal Extremities: No edema, Perfused A/P Problem List: (1) Anemia ICD Codes: D64.9 - Anemia, unspecified Status: Chronic (2) Ascites of liver ICD Codes: R18.8 - Other ascites Status: Chronic (3) Pleural effusion on left ICD Codes: J90 - Pleural effusion, not elsewhere classified Status: Acute (4) Pleural effusion on right ICD Codes: J90 - Pleural effusion, not elsewhere classified Status: Acute (5) Staphylococcus aureus bacteremia with sepsis ICD Codes: A41.01 - Sepsis due to Methicillin susceptible Staphylococcus aureus Status: Acute (6) Urinary tract infection ICD Codes: N39.0 - Urinary tract infection, site not specified Status: Acute (7) History of esophageal varices ICD Codes: Z87.19 - History of esophageal varices Status: Chronic (8) Hyperglycemia ICD Codes: R73.9 - Hyperglycemia, unspecified Status: Chronic (9) Chronic pain ICD Codes: G89.29 - Chronic pain Status: Chronic (10) Cirrhosis of liver ICD Codes: K74.60 - Unspecified cirrhosis of liver Status: Chronic (11) Chronic obstructive pulmonary disease ICD Codes: J44.9 - Chronic obstructive pulmonary disease Status: Chronic (12) Insulin dependent diabetes mellitus ICD Codes: E11.9 - Type 2 diabetes mellitus without complications; Z79.4 - terminal gauger (current) use of insulin Status: Chronic Assessment and Plan 66-year-old gentleman who had positive blood cultures for staph aureus Also had a urinalysis positive for staph aureus. Sensitivity still pending Repeat CT scan of abdomen shows new bilateral pleural effusions and ascites I suspect as a result of his malnourishment and albumin being 1.2 No surgical problems at this point Diarrhea is resolving I'll advance his diet Start Imodium Attending Statement NOTE FOR SURGICAL ATTENDING, DR. THEODORE JORDAN I attest that I had a [id number] encounter with the patient on the same day, and personally performed and documented my assessment and findings in the medical record. The following services were provided during this hospital visit: Chart data review, vital sign assessments/reviewing monitor data Review of consultations notes if present. Medication orders/review and/or management Ordering and/or reviewing lab tests Ordering and/or interpreting/reviewing x-rays and/or diagnostic studies Care of the patient and discussion of the patient with the care team Documentation time To help prompt me to consider important information that might be impacting today's encounter and assessment, information from prior notes written by myself or my colleagues may have been "brought forward/copy and pasted" into today's note. Problem Qualifiers (1) Urinary tract infection: (2) Cirrhosis of liver: Theodore Jordan MD Mar 14, 2017 11:10
--- NOTE | 2017-03-14 13:29 | HHI.PR ---
Subjective Remarks Diarrhea remains. No C. Diff on second evaluation. Pain better today compared to yesterday. CT shows no perforation or abscess evidence. Objective Vital Signs Date Time Temp Pulse Resp B/P (MAP) Pulse Ox O2 Delivery O2 Flow Rate FiO2 03/14/17 08:00 98.3 103 19 147/86 (106) 99 03/14/17 04:00 98.2 110 21 138/85 (102) 97 03/14/17 00:20 161/97 (118) 03/14/17 00:00 99.3 115 22 166/100 (122) 98 03/13/17 20:03 119 03/13/17 20:00 100.1 112 22 138/85 (102) 98 03/13/17 16:00 96.9 113 20 152/88 (109) 97 I/O 03/13/17 03/13/17 03/13/17 03/14/17 03/14/17 03/14/17 07:00 15:00 23:00 07:00 15:00 23:00 Intake Total 1675 ml 340 ml 1550 ml 962 ml 440 ml Output Total 600 ml 1500 ml 175 ml Balance 1075 ml 340 ml 50 ml 787 ml 440 ml Intake Oral 240 ml 240 ml 1450 ml 240 ml 240 ml IV Total 1435 ml 100 ml 100 ml 722 ml 200 ml Output Urine Total 600 ml 1200 ml 175 ml Stool Total 300 ml # Voids 2 # Bowel Movements 1 Result Diagram: 03/14/1752103/14/17521 Objective Remarks GENERAL: NAD, A&Ox3 HEAD: Normocephalic. NECK: Supple, trachea midline. No lymphadenopathy. EYES: No scleral icterus. No injection or drainage. CARDIOVASCULAR: Regular rate and rhythm without murmurs, gallops, or rubs. RESPIRATORY: Breath sounds equal bilaterally. No accessory muscle use. GASTROINTESTINAL: Abdomen soft, nondistended. Tenderness at right lower quadrant. MUSCULOSKELETAL: No cyanosis, or edema. SKIN: Warm and dry. NEURO: No focal neurological deficitis. A/P Problem List: (1) Sepsis ICD Code: A41.9 - Sepsis, unspecified organism Status: Acute Assessment and Plan Assessment and plan 66-year-old male admitted secondary to sepsis and colitis/enteritis, diarrhea. Repeat CT of abdomen. Repeat C. difficile screen is negative. Imodium started for diarrhea. Continue to monitor electrolytes and replace as needed. Labs reviewed. Sepsis Improving Treat infection IV hydration Follow vital signs closely Bacterial colitis/enteritis Continue Zosyn Continue clindamycin Surgeon consulted and following Hypokalemia Follow and replace as needed Hypocalcemia Calcium gluconate provided today Follow calcium levels IV replacement till patient can take by mouth Replace as needed Cirrhosis Hep C Follow clinically HTN Nothing by mouth for now By mouth treatments held Follow blood pressure As needed IV enalapril COPD No exacerbation Follow clinically Diabetes mellitus type 2 Follow blood sugars Insulin sliding scale Diabetic diet Hx of DVT DVT prophylaxis Lovenox Problem Qualifiers (1) Sepsis: Qualified Codes: A41.9 - Sepsis, unspecified organism Natalio Purcell MD Mar 14, 2017 13:29
[2017-03-14] MEDS: SODIUM CHLOR 0.9% 1000 ML INJ 1,000 ML IV SCH ×2 (14:48→18:22)
[2017-03-14] MEDS: ENOXAPARIN SODIUM 40 MG/0.4 ML SYRINGE SQ SCH (15:29)
[2017-03-14 16:34] LABS: REVIEW FLAG FINAL
[2017-03-14] MEDS ORDERED: METOPROLOL TARTRATE 25 MG TAB PO ONE (20:45)
[2017-03-14] MEDS: LOPERAMIDE HCL 2 MG CAP PO PRN (21:03)
[2017-03-15] VITALS: BP 153/88; PULSE 112; RESP 19; TEMP 100.3; O2SAT 98
[2017-03-15] MEDS: HYDROmorphone HCL PF 2 MG/ML VIAL IV PRN ×8 (00:37→20:54)
[2017-03-15] MEDS: LOPERAMIDE HCL 2 MG CAP PO PRN ×2 (01:05→15:08)
[2017-03-15] MEDS: PIPERACIL-TAZO 4.5 GM PREMIX 100 ML IV SCH ×4 (01:06→17:34)
[2017-03-15] MEDS: SODIUM CHLOR 0.9% 1000 ML INJ 1,000 ML IV SCH ×2 (03:42→14:22)
[2017-03-15 04:00] VITALS: BP 151/54; PULSE 104; RESP 19; TEMP 99.4; O2SAT 99
[2017-03-15] MEDS: CLINDAMYCIN INJ 600 MG in SODIUM CHLORIDE 0.9% INJ 100 ML IV SCH ×2 (04:50→15:01)
[2017-03-15 07:47] LABS: AUTOMATED NEUTROPHIL # 8.1 TH/MM3 (1.8-7.7); BASOPHIL % 0.2 % (0.0-2.0); EOSINOPHIL # 0.1 TH/MM3 (0-0.4); EOSINOPHIL % 0.5 % (0.0-4.0); HEMATOCRIT 25.4 % (39.0-51.0); HEMO FLAGS DIFF FINAL; LYMPH % 11.1 % (9.0-44.0); LYMPHOCYTE # 1.1 TH/MM3 (1.0-4.8); MEAN CELL VOLUME 82.9 FL (80.0-100.0); MEAN CORPUSCULAR HEMOGLOBIN 26.5 PG (27.0-34.0); MONO % 7.2 % (0.0-8.0); PLATELET COUNT 234 TH/MM3 (150-450); RED BLOOD COUNT 3.06 MIL/MM3 (4.50-5.90); RED CELL DISTRIBUTION WIDTH 16.6 % (11.6-17.2)
[2017-03-15 08:00] VITALS: BP 157/86; PULSE 100; PULSE 82; RESP 18; TEMP 98.9; O2SAT 100
[2017-03-15] MEDS: INSULIN ASPART SUPPLEMENTAL SCALE SQ SCH ×4 (08:00→21:55)
[2017-03-15 08:11] LABS: ALT (GPT) 18 U/L (12-78); ANION GAP 9 MEQ/L (5-15); AST (GOT) 18 U/L (15-37); BICARBONATE 22.4 MEQ/L (21.0-32.0); BLOOD UREA NITROGEN 7 MG/DL (7-18); CHLORIDE 103 MEQ/L (98-107); GLOMERULAR FILTRATION RATE 113 ML/MIN (>89); POTASSIUM 3.7 MEQ/L (3.5-5.1); SODIUM (NA) 134 MEQ/L (136-145)
[2017-03-15 08:13] LABS: ALKALINE PHOSPHATASE 117 U/L (45-117); TOTAL BILIRUBIN ADULT 0.4 MG/DL (0.2-1.0)
[2017-03-15] MEDS: SODIUM CHLORIDE 0.9% FLUSH 10 ML FLUSH IV FLUSH SCH ×2 (08:46→20:50)
[2017-03-15] MEDS: ASCORBIC ACID 500 MG TAB PO SCH (08:46)
[2017-03-15] MEDS: GABAPENTIN 100 MG CAP PO SCH ×3 (08:46→17:34)
[2017-03-15] MEDS: BUDESONIDE-FORMOTEROL 160/4.5 MCG INHALER INH SCH ×2 (08:46→20:50)
[2017-03-15] MEDS: MULTIVITAMIN HEMATINIC THERAPEUTIC TAB PO SCH (08:46)
[2017-03-15] MEDS: FAMOTIDINE 20 MG TAB PO SCH ×2 (08:46→20:52)
[2017-03-15 12:00] VITALS: BP 157/87; PULSE 106; RESP 17; TEMP 98.7; O2SAT 99
[2017-03-15] MEDS ORDERED: predniSONE 20 MG TAB PO ONE (12:30)
--- NOTE | 2017-03-15 14:29 | HHI.PR ---
Subjective Remarks Diarrhea improved on Imodium. Patient still complaining of abdominal pain. He complains of diffuse joint pains. He has rheumatoid arthritis at baseline and his pain descriptions do sound like his rheumatoid arthritis may be flaring up. Patient agrees with this. Objective Vital Signs Date Time Temp Pulse Resp B/P (MAP) Pulse Ox O2 Delivery O2 Flow Rate FiO2 03/15/17 12:00 98.7 106 17 157/87 (110) 99 03/15/17 08:00 98.9 100 18 157/86 (109) 100 03/15/17 08:00 82 03/15/17 04:00 99.4 104 19 151/54 (86) 99 03/15/17 00:00 100.3 112 19 153/88 (109) 98 03/14/17 20:02 127 03/14/17 20:00 99.8 127 17 172/98 (122) 98 03/14/17 16:00 99.6 120 22 165/89 (114) 98 I/O 03/14/17 03/14/17 03/14/17 03/15/17 03/15/17 03/15/17 07:00 15:00 23:00 07:00 15:00 23:00 Intake Total 962 ml 640 ml 1680 ml 1548 ml Output Total 175 ml 1525 ml 350 ml Balance 787 ml 640 ml 155 ml 1198 ml Intake Oral 240 ml 240 ml 1680 ml 240 ml IV Total 722 ml 400 ml 1308 ml Output Urine Total 175 ml 1525 ml 350 ml # Voids 2 4 1 # Bowel Movements 2 1 Result Diagram: 03/15/1771803/15/17718 Objective Remarks GENERAL: NAD, A&Ox3 HEAD: Normocephalic. NECK: Supple, trachea midline. No lymphadenopathy. EYES: No scleral icterus. No injection or drainage. CARDIOVASCULAR: Regular rate and rhythm without murmurs, gallops, or rubs. RESPIRATORY: Breath sounds equal bilaterally. No accessory muscle use. GASTROINTESTINAL: Abdomen soft, nondistended. Tenderness at right lower quadrant. MUSCULOSKELETAL: No cyanosis, or edema. SKIN: Warm and dry. NEURO: No focal neurological deficitis. A/P Problem List: (1) Sepsis ICD Code: A41.9 - Sepsis, unspecified organism Status: Acute Assessment and Plan Assessment and plan 66-year-old male admitted secondary to sepsis and colitis/enteritis, diarrhea. Repeat CT of abdomen. Repeat C. difficile screen is negative. Imodium started for diarrhea. Continue to monitor electrolytes and replace as needed. Labs reviewed. Sepsis Resolved Follow vital signs closely Bacterial colitis/enteritis Continue Zosyn Continue clindamycin Surgeon consulted and following Rheumatoid arthritis exacerbation Prednisone 10 mg by mouth twice a day started Follow clinically for improvement Hypokalemia Follow and replace as needed Hypocalcemia Calcium gluconate provided today Follow calcium levels IV replacement till patient can take by mouth Replace as needed Cirrhosis Hep C Follow clinically HTN Nothing by mouth for now By mouth treatments held Follow blood pressure As needed IV enalapril COPD No exacerbation Follow clinically Diabetes mellitus type 2 Follow blood sugars Insulin sliding scale Diabetic diet Hx of DVT DVT prophylaxis Lovenox Problem Qualifiers (1) Sepsis: Qualified Codes: A41.9 - Sepsis, unspecified organism Natalio Purcell MD Mar 15, 2017 14:29
[2017-03-15] MEDS: ENOXAPARIN SODIUM 40 MG/0.4 ML SYRINGE SQ SCH (15:01)
[2017-03-15 16:00] VITALS: BP 159/86; PULSE 107; RESP 19; TEMP 99.3; O2SAT 100
[2017-03-15 20:00] VITALS: BP 160/84; PULSE 102; RESP 19; TEMP 99.4; O2SAT 99
[2017-03-15] MEDS: predniSONE 10 MG TAB PO SCH (20:52)
[2017-03-16] VITALS: BP 140/84; PULSE 109; RESP 19; TEMP 98.3; O2SAT 99
[2017-03-16] MEDS: SODIUM CHLOR 0.9% 1000 ML INJ 1,000 ML IV SCH ×3 (00:05→19:58)
[2017-03-16] MEDS: CLINDAMYCIN INJ 600 MG in SODIUM CHLORIDE 0.9% INJ 100 ML IV SCH ×2 (00:05→04:41)
[2017-03-16] MEDS: HYDROmorphone HCL PF 2 MG/ML VIAL IV PRN ×7 (00:06→21:12)
[2017-03-16] MEDS: PIPERACIL-TAZO 4.5 GM PREMIX 100 ML IV SCH ×4 (01:46→18:25)
[2017-03-16 04:00] VITALS: BP 144/78; PULSE 99; RESP 19; TEMP 98.2; O2SAT 99
[2017-03-16 07:47] LABS: BASOPHIL % 0.1 % (0.0-2.0); EOSINOPHIL % 0.2 % (0.0-4.0); HEMATOCRIT 24.3 % (39.0-51.0); HEMO FLAGS DIFF FINAL; LYMPH % 12.7 % (9.0-44.0); LYMPHOCYTE # 1.1 TH/MM3 (1.0-4.8); MEAN CELL VOLUME 82.3 FL (80.0-100.0); MEAN CORPUSCULAR HEMOGLOBIN 27.3 PG (27.0-34.0); MEAN CORPUSCULAR HGB CONC 33.2 % (32.0-36.0); MONO % 5.4 % (0.0-8.0); NEUT % 81.6 % (16.0-70.0); PLATELET COUNT 224 TH/MM3 (150-450); RED BLOOD COUNT 2.95 MIL/MM3 (4.50-5.90); RED CELL DISTRIBUTION WIDTH 16.6 % (11.6-17.2); WHITE BLOOD COUNT 8.5 TH/MM3 (4.0-11.0)
[2017-03-16 08:00] VITALS: BP 158/88; PULSE 91; RESP 18; TEMP 98.1; O2SAT 99
[2017-03-16] MEDS: INSULIN ASPART SUPPLEMENTAL SCALE SQ SCH ×4 (08:00→20:10)
[2017-03-16 08:18] LABS: ANION GAP 8 MEQ/L (5-15); AST (GOT) 17 U/L (15-37); BICARBONATE 22.5 MEQ/L (21.0-32.0); BLOOD UREA NITROGEN 7 MG/DL (7-18); CHLORIDE 102 MEQ/L (98-107); GLOMERULAR FILTRATION RATE 126 ML/MIN (>89); POTASSIUM 4.1 MEQ/L (3.5-5.1); SODIUM (NA) 132 MEQ/L (136-145)
[2017-03-16 08:20] LABS: ALT (GPT) 16 U/L (12-78)
[2017-03-16 08:21] LABS: ALKALINE PHOSPHATASE 85 U/L (45-117); TOTAL BILIRUBIN ADULT 0.3 MG/DL (0.2-1.0)
[2017-03-16] MEDS: BUDESONIDE-FORMOTEROL 160/4.5 MCG INHALER INH SCH ×2 (09:00→19:58)
[2017-03-16] MEDS: MULTIVITAMIN HEMATINIC THERAPEUTIC TAB PO SCH (09:33)
[2017-03-16] MEDS: GABAPENTIN 100 MG CAP PO SCH ×3 (09:33→18:25)
[2017-03-16] MEDS: FAMOTIDINE 20 MG TAB PO SCH ×2 (09:34→19:57)
[2017-03-16] MEDS: ASCORBIC ACID 500 MG TAB PO SCH (09:34)
[2017-03-16] MEDS: predniSONE 10 MG TAB PO SCH ×2 (09:34→19:58)
[2017-03-16] MEDS: SODIUM CHLORIDE 0.9% FLUSH 10 ML FLUSH IV FLUSH SCH ×2 (09:34→19:58)
[2017-03-16 12:00] VITALS: BP 160/88; PULSE 99; RESP 17; TEMP 97.5; O2SAT 100
--- NOTE | 2017-03-16 12:48 | HHI.PR ---
Subjective Remarks Some improvement in pain today. Patient ambulating more. Decrease joint pains. Blood cultures positive and repeat cultures pending. Objective Vital Signs Date Time Temp Pulse Resp B/P (MAP) Pulse Ox O2 Delivery O2 Flow Rate FiO2 03/16/17 12:00 97.5 99 17 160/88 (112) 100 03/16/17 08:00 91 03/16/17 08:00 98.1 91 18 158/88 (111) 99 03/16/17 04:00 98.2 99 19 144/78 (100) 99 03/16/17 00:00 98.3 109 19 140/84 (102) 99 03/15/17 20:00 99.4 102 19 160/84 (109) 99 03/15/17 16:00 99.3 107 19 159/86 (110) 100 I/O 03/15/17 03/15/17 03/15/17 03/16/17 03/16/17 03/16/17 07:00 15:00 23:00 07:00 15:00 23:00 Intake Total 1548 ml 960 ml 240 ml Output Total 350 ml 1500 ml 200 ml Balance 1198 ml -540 ml 40 ml Intake Oral 240 ml 960 ml 240 ml IV Total 1308 ml Output Urine Total 350 ml 1500 ml 200 ml # Voids 1 3 # Bowel Movements 1 5 Result Diagram: 03/16/1764203/16/17642 Objective Remarks GENERAL: NAD, A&Ox3 HEAD: Normocephalic. NECK: Supple, trachea midline. No lymphadenopathy. EYES: No scleral icterus. No injection or drainage. CARDIOVASCULAR: Regular rate and rhythm without murmurs, gallops, or rubs. RESPIRATORY: Breath sounds equal bilaterally. No accessory muscle use. GASTROINTESTINAL: Abdomen soft, nondistended. Tenderness at right lower quadrant. MUSCULOSKELETAL: No cyanosis, or edema. SKIN: Warm and dry. NEURO: No focal neurological deficitis. A/P Problem List: (1) Sepsis ICD Code: A41.9 - Sepsis, unspecified organism Status: Acute Assessment and Plan Assessment and plan 66-year-old male admitted secondary to sepsis and colitis/enteritis, diarrhea. Repeat CT of abdomen. Repeat C. difficile screen is negative. Imodium started for diarrhea. Continue to monitor electrolytes and replace as needed. Follow blood cultures and electrolytes. Sepsis Resolved Follow vital signs closely Bacterial colitis/enteritis Continue Zosyn Continue clindamycin Surgeon consulted and following Transitioning to by mouth treatments. Rheumatoid arthritis exacerbation Improvement on steroids Prednisone 10 mg by mouth twice a day started Follow clinically for improvement Hypokalemia Follow and replace as needed Hypocalcemia Calcium gluconate provided today Follow calcium levels IV replacement till patient can take by mouth Replace as needed Cirrhosis Hep C Follow clinically HTN Nothing by mouth for now By mouth treatments held Follow blood pressure As needed IV enalapril COPD No exacerbation Follow clinically Diabetes mellitus type 2 Follow blood sugars Insulin sliding scale Diabetic diet Hx of DVT DVT prophylaxis Lovenox Problem Qualifiers (1) Sepsis: Qualified Codes: A41.9 - Sepsis, unspecified organism Natalio Purcell MD Mar 16, 2017 12:48
[2017-03-16] MEDS ORDERED: INSULIN HUMAN NPH 1,000 UNITS/10 ML VIAL SQ ONE (13:00)
--- NOTE | 2017-03-16 14:07 | MB ---
cc: NATALIYA GABRIEL MD DATE OF CONSULTATION: 03/16/2017. REASON FOR CONSULTATION: Staph aureus bacteremia. REQUESTING PHYSICIAN: Dr. Purcell. HISTORY OF PRESENT ILLNESS: Tariq Parks is a 66-year-old white male who is status post abdominal surgery. The patient underwent right colon resection and also small bowel resection for ischemic cecum and fascia and partial ischemia of the distal terminal ileum on 01/29/2017. He was treated extensively in the hospital with medications and antibiotics as well. He had elevated white blood cell count after the surgery and he also had report of Clostridium perfringens at the margins of the surgical tissue. This was on the pathology specimen of that surgery. The patient was discharged from the hospital on February 14. He did have some diarrhea prior to being discharged but the diarrhea had resolved. He was discharged home without antibiotics. The patient was readmitted to the hospital on March 10 with abdominal pain. He also had nausea and vomiting. He reportedly ran out of pain medication and he felt that his pain was related to that. He was afebrile on presentation. His white blood cell count was 15,000. CT scan of the abdomen had findings characteristic of increasing portal hypertension and he also was noted to have enlarged spleen. Cultures were taken on admission including blood and urine culture. The blood culture came back with staph aureus in all four bottles. Urine culture also came back with staph aureus greater than 100,000 colonies. The patient had temperature of 100.1 max on 03/13. Prior to that, his temperatures were low to normal. His white blood cell count was 15.1 on admission and it came down to 11.1 on 03/14 and is now 8.5. The patient denies problems with urine. He denies dysuria. He denies urinary frequency, urgency or hesitancy. His main complaint is some pain in the right lower quadrant of the abdomen and also the left upper quadrant as well as he states that it radiates from the left upper quadrant to the right lower quadrant. He states that the pain is of a cramping nature and thinks it may be due to spasms. He denies chills, shortness of breath or lower back pain. He states that he felt that he may have had low-grade fever every couple of days before admission. PAST MEDICAL HISTORY: 1. Esophageal varices. 2. Hepatitis C. 3. History of cirrhosis. 4. Recent bowel resection. 5. Diabetes mellitus. 6. History of laparoscopic cholecystectomy. 7. History of back surgery. 8. Neuropathy. 9. Vasectomy. 10. History of bladder cancer. 11. History of bilateral knee surgery. 12. History of banding of esophageal varices. ALLERGIES: 1. PENTAZOCINE. 2. CODEINE. 3. KETORFANOL. 4. IV DYE. 5. IODINATED CONTRAST. MEDICATIONS: 1. Deltasone. 2. Theragran. 3. Ascorbic acid. 4. Imodium. 5. Pepcid. 6. Neurontin. 7. Clindamycin. 8. Piperacillin / tazobactam. 9. Symbicort. SOCIAL HISTORY: No alcohol use. No illicit drugs. FAMILY HISTORY: Noncontributory. REVIEW OF SYSTEMS: Significant for abdominal pain in the right and left abdomen. PHYSICAL EXAMINATION: GENERAL: This is a well-developed male who is in no acute distress. He is awake and alert and oriented. VITAL SIGNS: Include temperature 97.5, blood pressure 160/88, respirations 17, heart rate 99. HEAD, EYES, EARS, NOSE, THROAT: Head is atraumatic. Extraocular movements grossly intact, pupils reactive to light. No icterus. Oropharynx moist mucosa without lesions. NECK: The neck is supple without adenopathy. LUNGS: Clear breath sounds. HEART: Regular S1-S2 without murmurs, rubs or gallops. ABDOMEN: Midline surgical incision appears intact. Positive bowel sounds. Tenderness on palpation of the right lower quadrant. The abdomen is a little protuberant. RECTAL: Not performed. EXTREMITIES: No clubbing, cyanosis or edema. SKIN: No rash. NEUROLOGIC: No gross focal findings. PSYCHIATRIC: The patient is calm and pleasant and cooperative. LABORATORY DATA: WBC 8.5, platelets 220, 81% neutrophils, hemoglobin 8.1. Creatinine 0.64, estimated GFR 126. Liver function tests normal. Sodium 132. C. difficile toxin negative. IMPRESSION: 1. Bacteremia due to staph aureus. 2. Urinary tract infection due to staph aureus. 3. Abdominal pain of questionable etiology. The patient appears to be stable and he has been on IV antibiotics which appears to have lead to improvement of the infection. The culture was drawn on 03/10 and currently he has no symptoms suggesting ongoing sepsis. The patient has not had a Morelos catheter to suggest that he developed infection as a result. He has had history of bladder cancer and bladder resection. RECOMMENDATIONS: 1. Repeat the blood cultures. 2. Discontinue clindamycin 3. Continue the piperacillin / tazobactam. 4. If the patient remains afebrile and the repeat blood cultures are negative, I think that we can stop the antibiotics. Thank you this consultation. The patient's progress will be monitored and further recommendations will be made upon followup if necessary. Nataliya Gabriel MD FD/CHLOE /12:33 PM /1:50 PM ASIA
[2017-03-16] MEDS: ENOXAPARIN SODIUM 40 MG/0.4 ML SYRINGE SQ SCH (15:30)
[2017-03-16 16:00] VITALS: BP 157/88; PULSE 106; RESP 17; TEMP 98.4; O2SAT 99
[2017-03-16] MEDS: MORPHINE SULFATE 15 MG CONTROLLED RELEASE TAB PO SCH (19:58)
[2017-03-16 20:00] VITALS: BP 155/93; PULSE 113; RESP 20; TEMP 98.5; O2SAT 99
[2017-03-16] MEDS: INSULIN DETEMIR 100 UNITS/ML VIAL SQ SCH (20:10)
[2017-03-17] VITALS: BP 165/86; PULSE 123; RESP 20; TEMP 98.8; O2SAT 99
[2017-03-17] MEDS: PIPERACIL-TAZO 4.5 GM PREMIX 100 ML IV SCH ×4 (00:15→20:11)
[2017-03-17] MEDS: HYDROmorphone HCL PF 2 MG/ML VIAL IV PRN ×3 (00:16→06:12)
[2017-03-17] MEDS: SODIUM CHLOR 0.9% 1000 ML INJ 1,000 ML IV SCH ×2 (03:48→15:17)
[2017-03-17 04:00] VITALS: BP 163/89; PULSE 93; RESP 20; TEMP 98.6; O2SAT 100
[2017-03-17 06:11] LABS: AUTOMATED NEUTROPHIL # 8.1 TH/MM3 (1.8-7.7); BASOPHIL % 0.3 % (0.0-2.0); EOSINOPHIL # 0.1 TH/MM3 (0-0.4); EOSINOPHIL % 0.6 % (0.0-4.0); HEMATOCRIT 25.2 % (39.0-51.0); HEMO FLAGS DIFF FINAL; LYMPH % 14.9 % (9.0-44.0); LYMPHOCYTE # 1.6 TH/MM3 (1.0-4.8); MEAN CELL VOLUME 81.5 FL (80.0-100.0); MEAN CORPUSCULAR HEMOGLOBIN 27.1 PG (27.0-34.0); MEAN CORPUSCULAR HGB CONC 33.3 % (32.0-36.0); MONO % 6.9 % (0.0-8.0); NEUT % 77.3 % (16.0-70.0); PLATELET COUNT 276 TH/MM3 (150-450); RED BLOOD COUNT 3.09 MIL/MM3 (4.50-5.90); RED CELL DISTRIBUTION WIDTH 16.6 % (11.6-17.2); WHITE BLOOD COUNT 10.4 TH/MM3 (4.0-11.0)
[2017-03-17 06:34] LABS: ALT (GPT) 19 U/L (12-78); ANION GAP 7 MEQ/L (5-15); AST (GOT) 23 U/L (15-37); BICARBONATE 25.3 MEQ/L (21.0-32.0); BLOOD UREA NITROGEN 7 MG/DL (7-18); CHLORIDE 101 MEQ/L (98-107); GLOMERULAR FILTRATION RATE 130 ML/MIN (>89); POTASSIUM 4.2 MEQ/L (3.5-5.1); SODIUM (NA) 133 MEQ/L (136-145)
[2017-03-17 06:36] LABS: ALKALINE PHOSPHATASE 93 U/L (45-117); TOTAL BILIRUBIN ADULT 0.3 MG/DL (0.2-1.0)
[2017-03-17 08:00] VITALS: BP 178/92; PULSE 95; RESP 19; TEMP 98.6; O2SAT 100
[2017-03-17] MEDS ORDERED: oxyCODONE/ACETAMINOPHEN 5 MG/325 MG TAB PO PRN (08:00)
[2017-03-17] MEDS: INSULIN ASPART SUPPLEMENTAL SCALE SQ SCH ×3 (08:00→20:10)
[2017-03-17] MEDS ORDERED: oxyCODONE/ACETAMINOPHEN 10 MG/325 MG TAB PO PRN (08:00)
[2017-03-17] MEDS: SODIUM CHLORIDE 0.9% FLUSH 10 ML FLUSH IV FLUSH SCH ×2 (08:01→21:00)
[2017-03-17] MEDS: FAMOTIDINE 20 MG TAB PO SCH ×2 (08:03→20:09)
[2017-03-17] MEDS: predniSONE 10 MG TAB PO SCH ×2 (08:03→20:09)
[2017-03-17] MEDS: GABAPENTIN 100 MG CAP PO SCH ×3 (08:03→17:52)
[2017-03-17] MEDS: ASCORBIC ACID 500 MG TAB PO SCH (08:03)
[2017-03-17] MEDS: MORPHINE SULFATE 15 MG CONTROLLED RELEASE TAB PO SCH ×2 (08:03→20:09)
[2017-03-17] MEDS: MULTIVITAMIN HEMATINIC THERAPEUTIC TAB PO SCH (08:03)
[2017-03-17] MEDS: BUDESONIDE-FORMOTEROL 160/4.5 MCG INHALER INH SCH ×2 (08:05→20:11)
[2017-03-17] MEDS: HYDROmorphone HCL PF 1 MG/ML VIAL IV PUSH PRN ×4 (09:02→23:48)
[2017-03-17] MEDS ORDERED: PATIENT OWN MEDICATION (Linagliptin (Tradjenta) 5 MG) PO SCH (10:00)
[2017-03-17 12:00] VITALS: BP 165/89; PULSE 107; RESP 18; TEMP 98.6; O2SAT 98
[2017-03-17] MEDS: LISINOPRIL 10 MG TAB PO SCH (12:16)
[2017-03-17] MEDS: ENOXAPARIN SODIUM 40 MG/0.4 ML SYRINGE SQ SCH (15:14)
[2017-03-17 16:00] VITALS: BP 153/80; PULSE 100; RESP 18; TEMP 98.6; O2SAT 98
--- NOTE | 2017-03-17 17:35 | HHI.PR ---
Subjective Remarks Patient reported feeling chills, fatigue and tired, mostly pain in his lower abdomen and right lower extremity Objective Vitals Vital Signs Date Time Temp Pulse Resp B/P (MAP) Pulse Ox O2 Delivery O2 Flow Rate FiO2 03/17/17 16:00 98.6 100 18 153/80 (104) 98 03/17/17 12:00 98.6 107 18 165/89 (114) 98 03/17/17 08:00 98.6 95 19 178/92 (120) 100 03/17/17 04:00 98.6 93 20 163/89 (113) 100 03/17/17 00:00 98.8 123 20 165/86 (112) 99 03/16/17 20:00 98.5 113 20 155/93 (113) 99 03/16/17 19:07 18 I/O 03/16/17 03/16/17 03/16/17 03/17/17 03/17/17 03/17/17 07:00 15:00 23:00 07:00 15:00 23:00 Intake Total 344 ml 100 ml 1024 ml 580 ml Output Total 200 ml 1800 ml 1000 ml Balance 144 ml 100 ml -776 ml -420 ml Intake Oral 240 ml 900 ml 480 ml IV Total 104 ml 100 ml 124 ml 100 ml Output Urine Total 200 ml 1800 ml 1000 ml # Bowel Movements 2 0 Result Diagram: 03/17/1751903/17/17519 Objective Remarks GENERAL: This is a well-nourished, well-developed patient, in no apparent distress. SKIN: No rashes, warm and dry HEAD: Atraumatic. Normocephalic. EYES: Pupils equal round and reactive. Extraocular motions intact. No scleral icterus. ENT: Nose without bleeding, or drainage, Airway patent. NECK: Trachea midline. Supple CARDIOVASCULAR: Regular tachycardia RESPIRATORY: Fair air entry bilaterally. No wheezes, rales, or rhonchi. GASTROINTESTINAL: Abdomen soft, non-tender, nondistended. Positive bowel sounds MUSCULOSKELETAL: +3 edema in the lower extremity NEUROLOGICAL: Awake and alert. Moves all extremity. Normal speech.no focal neurological deficit A/P Problem List: (1) Sepsis ICD Code: A41.9 - Sepsis, unspecified organism Status: Acute Assessment and Plan Sepsis MSSA bacteremia, unknown source questionable colitisenteritis Rheumatoid arthritis exacerbation Liver cirrhosis Uncontrolled Hypertension COPD Diabetes mellitus DT prophilaxis Plan: Continue following culture Antibiotic per ID Continue prednisone I will change Levemir to 14 twice a day due to morning hypoglycemia, resume the neglect and, increase ISS 2 high-level and Accu-Chek every 4 hours Add lisinopril for hypertension O2, DuoNeb Continue prednisone for COPD and rheumatoid arthritis Problem Qualifiers (1) Sepsis: Qualified Codes: A41.9 - Sepsis, unspecified organism Kai Matthews MD Mar 17, 2017 17:35
[2017-03-17 20:00] VITALS: BP 162/92; PULSE 109; RESP 18; TEMP 97.7; O2SAT 100
[2017-03-17] MEDS: INSULIN DETEMIR 100 UNITS/ML VIAL SQ SCH (20:10)
[2017-03-18] VITALS: BP 172/97; PULSE 111; RESP 18; TEMP 99.3; O2SAT 98
[2017-03-18] MEDS: PIPERACIL-TAZO 4.5 GM PREMIX 100 ML IV SCH ×3 (01:58→14:01)
[2017-03-18] MEDS: SODIUM CHLOR 0.9% 1000 ML INJ 1,000 ML IV SCH ×3 (02:22→21:58)
[2017-03-18] MEDS: HYDROmorphone HCL PF 1 MG/ML VIAL IV PUSH PRN ×3 (03:46→11:45)
[2017-03-18 08:00] VITALS: BP 182/97; PULSE 105; RESP 19; TEMP 97.6; O2SAT 98
[2017-03-18] MEDS: INSULIN ASPART SUPPLEMENTAL SCALE SQ SCH ×3 (08:00→20:17)
[2017-03-18] MEDS: predniSONE 10 MG TAB PO SCH ×2 (09:26→20:17)
[2017-03-18] MEDS: MULTIVITAMIN HEMATINIC THERAPEUTIC TAB PO SCH (09:26)
[2017-03-18] MEDS: GABAPENTIN 100 MG CAP PO SCH ×3 (09:26→16:52)
[2017-03-18] MEDS: FAMOTIDINE 20 MG TAB PO SCH ×2 (09:26→20:17)
[2017-03-18] MEDS: ASCORBIC ACID 500 MG TAB PO SCH (09:26)
[2017-03-18] MEDS: LISINOPRIL 10 MG TAB PO SCH (09:26)
[2017-03-18] MEDS: MORPHINE SULFATE 15 MG CONTROLLED RELEASE TAB PO SCH ×2 (09:27→20:17)
[2017-03-18] MEDS: BUDESONIDE-FORMOTEROL 160/4.5 MCG INHALER INH SCH ×2 (09:28→21:14)
[2017-03-18] MEDS: SODIUM CHLORIDE 0.9% FLUSH 10 ML FLUSH IV FLUSH SCH ×2 (09:28→20:17)
[2017-03-18] MEDS ORDERED: INSULIN DETEMIR 100 UNITS/ML VIAL SQ ONE (11:15)
[2017-03-18] MEDS ORDERED: LISINOPRIL 20 MG TAB PO ONE (11:30)
[2017-03-18 12:00] VITALS: BP 175/95; PULSE 104; RESP 19; TEMP 98.1; O2SAT 99
--- NOTE | 2017-03-18 15:18 | HHI.PR ---
Subjective Remarks Patient will like to adjust his pain medication He looks depressed and frustrated as of his medical condition Discussed with ID, we will need 2-D echo, source of bacteremia still not known yet Objective Vitals Vital Signs Date Time Temp Pulse Resp B/P (MAP) Pulse Ox O2 Delivery O2 Flow Rate FiO2 03/18/17 12:00 98.1 104 19 175/95 (121) 99 03/18/17 10:27 18 03/18/17 08:11 18 03/18/17 08:00 97.6 105 19 182/97 (125) 98 03/18/17 07:00 18 03/18/17 00:00 99.3 111 18 172/97 (122) 98 03/17/17 20:00 97.7 109 18 162/92 (115) 100 03/17/17 16:00 98.6 100 18 153/80 (104) 98 I/O 03/17/17 03/17/17 03/17/17 03/18/17 03/18/17 03/18/17 07:00 15:00 23:00 07:00 15:00 23:00 Intake Total 580 ml 100 ml 100 ml Output Total 1000 ml 1100 ml Balance -420 ml 100 ml -1000 ml Intake Oral 480 ml IV Total 100 ml 100 ml 100 ml Output Urine Total 1000 ml 1100 ml # Bowel Movements 0 Result Diagram: 03/17/1751903/17/17 0520 Objective Remarks GENERAL: This is a well-nourished, well-developed patient, in no apparent distress. SKIN: No rashes, warm and dry HEAD: Atraumatic. Normocephalic. EYES: Pupils equal round and reactive. Extraocular motions intact. No scleral icterus. ENT: Nose without bleeding, or drainage, Airway patent. NECK: Trachea midline. Supple CARDIOVASCULAR: Regular tachycardia RESPIRATORY: Fair air entry bilaterally. No wheezes, rales, or rhonchi. GASTROINTESTINAL: Abdomen soft, non-tender, nondistended. Positive bowel sounds MUSCULOSKELETAL: +3 edema in the lower extremity NEUROLOGICAL: Awake and alert. Moves all extremity. Normal speech.no focal neurological deficit A/P Problem List: (1) Sepsis ICD Code: A41.9 - Sepsis, unspecified organism Status: Acute Assessment and Plan Sepsis MSSA bacteremia, unknown source questionable colitisenteritis Rheumatoid arthritis exacerbation Liver cirrhosis Uncontrolled Hypertension still not optimized will decrease lisinopril blood pressure today 182/92 COPD Diabetes mellitus DT prophilaxis Plan: Continue following culture Antibiotic per ID, discussed with Dr. Navarro Continue prednisone I will change Levemir to 14 twice a day due to morning hypoglycemia, resume the neglect and, increase ISS 2 high-level and Accu-Chek every 4 hours, will do preprandial insulin Increase lisinopril for hypertension O2, DuoNeb Continue prednisone for COPD and rheumatoid arthritis Problem Qualifiers (1) Sepsis: Qualified Codes: A41.9 - Sepsis, unspecified organism Kai Matthews MD Mar 18, 2017 15:18
--- NOTE | 2017-03-18 15:24 | HHI.IDPN ---
Note Infectious Disease Note Patient complains of aches all over. He denies chills, SOB, nausea. Afebrile. Blood culture repeat has staph aureus from 03/16. Prior culture on 03/17 has staph aureus and urine culture has staph aureus. The patient underwent right colon resection and also small bowel resection for ischemic cecum and fascia and partial ischemia of the distal terminal ileum on 01/29/2017. After the surgery and he also had report of Clostridium perfringens at the margins of the surgical tissue on the pathology specimen. PAST MEDICAL HISTORY: 1. Esophageal varices. 2. Hepatitis C. 3. History of cirrhosis. 4. Recent bowel resection. 5. Diabetes mellitus. 6. History of laparoscopic cholecystectomy. 7. History of back surgery. 8. Neuropathy. 9. Vasectomy. 10. History of bladder cancer. 11. History of bilateral knee surgery. 12. History of banding of esophageal varices. ALLERGIES: 1. PENTAZOCINE. 2. CODEINE. 3. KETORFANOL. 4. IV DYE. 5. IODINATED CONTRAST. ANTIBIOTICS: Piperacillin / tazobactam. SOCIAL HISTORY: No alcohol use. No illicit drugs. FAMILY HISTORY: Noncontributory. OBJECTIVE: Vital Signs Date Time Temp Pulse Resp B/P (MAP) Pulse Ox O2 Delivery O2 Flow Rate FiO2 03/18/17 12:00 98.1 104 19 175/95 (121) 99 03/18/17 10:27 18 03/18/17 08:11 18 03/18/17 08:00 97.6 105 19 182/97 (125) 98 03/18/17 07:00 18 03/18/17 00:00 99.3 111 18 172/97 (122) 98 03/17/17 20:00 97.7 109 18 162/92 (115) 100 03/17/17 16:00 98.6 100 18 153/80 (104) 98 Laboratory Tests Test 03/17/17 05:20 White Blood Count 10.4 TH/MM3 Red Blood Count 3.09 MIL/MM3 Hemoglobin 8.4 GM/DL Hematocrit 25.2 % Mean Corpuscular Volume 81.5 FL Mean Corpuscular Hemoglobin 27.1 PG Mean Corpuscular Hemoglobin Concent 33.3 % Red Cell Distribution Width 16.6 % Platelet Count 276 TH/MM3 Mean Platelet Volume 7.7 FL Neutrophils (%) (Auto) 77.3 % Lymphocytes (%) (Auto) 14.9 % Monocytes (%) (Auto) 6.9 % Eosinophils (%) (Auto) 0.6 % Basophils (%) (Auto) 0.3 % Neutrophils # (Auto) 8.1 TH/MM3 Lymphocytes # (Auto) 1.6 TH/MM3 Monocytes # (Auto) 0.7 TH/MM3 Eosinophils # (Auto) 0.1 TH/MM3 Basophils # (Auto) 0.0 TH/MM3 CBC Comment DIFF FINAL Differential Comment Laboratory Tests Test 03/17/17 05:20 Blood Urea Nitrogen 7 MG/DL Creatinine 0.62 MG/DL Random Glucose 182 MG/DL Total Protein 7.8 GM/DL Albumin 1.4 GM/DL Calcium Level 7.7 MG/DL Alkaline Phosphatase 93 U/L Aspartate Amino Transf (AST/SGOT) 23 U/L Alanine Aminotransferase (ALT/SGPT) 19 U/L Total Bilirubin 0.3 MG/DL Sodium Level 133 MEQ/L Potassium Level 4.2 MEQ/L Chloride Level 101 MEQ/L Carbon Dioxide Level 25.3 MEQ/L Anion Gap 7 MEQ/L Estimat Glomerular Filtration Rate 130 ML/MIN Microbiology Date/Time Source Procedure Growth Status 03/17/17 05:20 Blood Peripheral Aerobic Blood Culture - Preliminary NO GROWTH IN 1 DAY Resulted 03/17/17 05:20 Blood Peripheral Anaerobic Blood Culture - Preliminary NO GROWTH IN 1 DAY Resulted 03/16/17 15:25 Blood Peripheral Aerobic Blood Culture - Preliminary Gram Positive Cocci Resulted 03/16/17 15:25 Blood Peripheral Anaerobic Blood Culture - Preliminary NO GROWTH IN 2 DAYS Resulted 03/16/17 15:20 Blood Peripheral Aerobic Blood Culture - Preliminary Staphylococcus Aureus Resulted 03/16/17 15:20 Blood Peripheral Anaerobic Blood Culture - Preliminary NO GROWTH IN 2 DAYS Resulted PHYSICAL EXAMINATION: GENERAL: No acute distress. He is awake and alert and oriented. HEAD, EYES, EARS, NOSE, THROAT: Head is atraumatic. Extraocular movements grossly intact, pupils reactive to light. No icterus. Oropharynx moist mucosa without lesions. NECK: The neck is supple. LUNGS: Clear breath sounds. HEART: Regular S1-S2 without murmurs, rubs or gallops. ABDOMEN: Midline surgical incision appears intact. Positive bowel sounds. Tenderness on palpation of the right lower quadrant. The abdomen is a little protuberant. EXTREMITIES: No clubbing, cyanosis or edema. SKIN: No rash. NEUROLOGIC: No gross focal findings. PSYCHIATRIC: The patient is calm and pleasant and cooperative. IMPRESSION: 1. Bacteremia due to staph aureus. Persistent positive blood cultures. 2. Urinary tract infection due to staph aureus. Probably is the source. However give the persisting blood culture could have another nidus. 3. Abdominal pain of questionable etiology. RECOMMENDATIONS: 1. Obtain 2D echo to look for heart valve vegetation. 2. Stop the piperacillin / tazobactam. 3. Start Oxacillin IV. 4. Repeat UA. 5. Follow the repeat blood cultures. Florentino Burnette MD Mar 18, 2017 15:24
[2017-03-18 16:00] VITALS: BP 159/89; PULSE 121; RESP 18; TEMP 98.6; O2SAT 100
[2017-03-18] MEDS: ENOXAPARIN SODIUM 40 MG/0.4 ML SYRINGE SQ SCH (16:00)
[2017-03-18] MEDS: MORPHINE SULFATE 4 MG/ML INJ IV PUSH PRN ×2 (16:51→20:17)
[2017-03-18] MEDS: BACLOFEN 10 MG TAB PO SCH (16:52)
[2017-03-18] MEDS: OXACILLIN INJ 2 GM in SODIUM CHLORIDE 0.9% INJ 100 ML IV SCH ×3 (18:45→21:56)
[2017-03-18 20:00] VITALS: BP 162/98; PULSE 126; RESP 20; TEMP 99.7; O2SAT 100
[2017-03-18] MEDS: INSULIN DETEMIR 100 UNITS/ML VIAL SQ SCH (20:18)
[2017-03-19] VITALS: BP 150/88; PULSE 133; RESP 20; TEMP 100.7; O2SAT 100
[2017-03-19] MEDS: MORPHINE SULFATE 4 MG/ML INJ IV PUSH PRN ×4 (00:14→11:09)
[2017-03-19] MEDS: BACLOFEN 10 MG TAB PO SCH ×2 (00:35→08:30)
[2017-03-19] MEDS: OXACILLIN INJ 2 GM in SODIUM CHLORIDE 0.9% INJ 100 ML IV SCH ×6 (00:35→21:36)
[2017-03-19 05:30] VITALS: TEMP 99.1
[2017-03-19 06:01] LABS: BLOOD, URINE MOD (NEG); COMMENT (UR) CULTURE INDICATED; CULTURE IF INDICATED CULTURE INDICATED; GLUCOSE,URINE 1000 mg/dL (NEG); KETONE, URINE NEG (NEG); NITRITE,URINE NEG (NEG); PH, URINE 6.5 (5.0-8.5); URINE COLOR LIGHT-YELLOW (YELLW/STRAW)
[2017-03-19 07:43] LABS: AUTOMATED NEUTROPHIL # 8.1 TH/MM3 (1.8-7.7); BASOPHIL % 0.3 % (0.0-2.0); EOSINOPHIL % 0.3 % (0.0-4.0); HEMATOCRIT 23.6 % (39.0-51.0); HEMO FLAGS DIFF FINAL; LYMPH % 16.5 % (9.0-44.0); LYMPHOCYTE # 1.8 TH/MM3 (1.0-4.8); MEAN CELL VOLUME 81.1 FL (80.0-100.0); MEAN CORPUSCULAR HEMOGLOBIN 26.4 PG (27.0-34.0); MEAN CORPUSCULAR HGB CONC 32.6 % (32.0-36.0); NEUT % 74.9 % (16.0-70.0); PLATELET COUNT 261 TH/MM3 (150-450); RED BLOOD COUNT 2.91 MIL/MM3 (4.50-5.90); RED CELL DISTRIBUTION WIDTH 16.6 % (11.6-17.2); WHITE BLOOD COUNT 10.8 TH/MM3 (4.0-11.0)
[2017-03-19 07:59] LABS: BICARBONATE 28.3 MEQ/L (21.0-32.0); POTASSIUM 3.7 MEQ/L (3.5-5.1)
[2017-03-19 08:00] VITALS: BP 161/91; PULSE 97; RESP 17; TEMP 98.2; O2SAT 99
[2017-03-19] MEDS: SODIUM CHLOR 0.9% 1000 ML INJ 1,000 ML IV SCH ×2 (08:22→19:46)
[2017-03-19] MEDS: MORPHINE SULFATE 15 MG CONTROLLED RELEASE TAB PO SCH ×2 (08:23→20:49)
[2017-03-19] MEDS: MULTIVITAMIN HEMATINIC THERAPEUTIC TAB PO SCH (08:28)
[2017-03-19] MEDS: LISINOPRIL 20 MG TAB PO SCH (08:29)
[2017-03-19] MEDS: predniSONE 10 MG TAB PO SCH (08:29)
[2017-03-19] MEDS: ASCORBIC ACID 500 MG TAB PO SCH (08:29)
[2017-03-19] MEDS: GABAPENTIN 100 MG CAP PO SCH ×3 (08:30→17:30)
[2017-03-19] MEDS: FAMOTIDINE 20 MG TAB PO SCH ×2 (08:30→19:44)
[2017-03-19] MEDS: INSULIN DETEMIR 100 UNITS/ML VIAL SQ SCH ×2 (08:30→19:44)
[2017-03-19] MEDS: SODIUM CHLORIDE 0.9% FLUSH 10 ML FLUSH IV FLUSH SCH ×2 (08:31→19:46)
[2017-03-19] MEDS: INSULIN ASPART SUPPLEMENTAL SCALE SQ SCH ×4 (08:32→19:46)
[2017-03-19] MEDS: BUDESONIDE-FORMOTEROL 160/4.5 MCG INHALER INH SCH ×2 (08:32→19:47)
[2017-03-19 12:00] VITALS: BP 165/86; PULSE 116; RESP 17; TEMP 98.4; O2SAT 99
--- NOTE | 2017-03-19 12:20 | ECHRPT ---
Indication: Acute and subacute endocarditis, unspecified CONCLUSIONS The left ventricular systolic function is normal with an estimated ejection fraction in the range of 55-60%. Wall thickness is measured at the upper limits of normal. Normal left ventricular size. No definite wall motion abnormalities. No valvular abnormalities are noted. BP: 150 / 88 HR: 133 Rhythm: Sinus MEASUREMENTS (Male / Female) Normal Values Technical Quality:Fair 2D ECHO LV Diastolic Diameter PLAX 4.3 cm 4.2 - 5.9 / 3.9 - 5.3 cm LV Systolic Diameter PLAX 3.6 cm IVS Diastolic Thickness 0.9 cm 0.6 - 1.0 / 0.6 - 0.9 cm LVPW Diastolic Thickness 1.0 cm 0.6 - 1.0 / 0.6 - 0.9 cm LV Relative Wall Thickness 0.4 LVOT Diameter 1.7 cm LA Systolic Diameter LX 2.7 cm 3.0 - 4.0 / 2.7 - 3.8 cm M-MODE Aortic Root Diameter MM 3.7 cm AV Cusp Separation MM 2.0 cm DOPPLER AV Peak Velocity 156.0 cm/s AV Peak Gradient 9.7 mmHg LVOT Peak Velocity 143.0 cm/s LVOT Peak Gradient 8.2 mmHg AV Area Cont Eq pk 2.1 cm PV Peak Velocity 124.0 cm/s PV Peak Gradient 6.2 mmHg FINDINGS LEFT VENTRICLE The left ventricular systolic function is normal with an estimated ejection fraction in the range of 55-60%. Wall thickness is measured at the upper limits of normal. Normal left ventricular size. No definite wall motion abnormalities. RIGHT VENTRICLE Normal right ventricular size and systolic function. LEFT ATRIUM The left atrial size is normal. RIGHT ATRIUM The right atrial size is normal. ATRIAL SEPTUM Normal atrial septal thickness without atrial level shunting by limited color doppler interrogation. AORTA The aortic root and proximal ascending aorta are normal in size on limited imaging. MITRAL VALVE Structurally normal mitral valve. No mitral valve stenosis or regurgitation. AORTIC VALVE Trileaflet aortic valve. No aortic valve stenosis or regurgitation. TRICUSPID VALVE Structurally normal tricuspid valve. No tricuspid valve stenosis or regurgitation. PULMONARY VALVE The pulmonary valve is not well visualized. VESSELS The inferior vena cava is normal in size. PERICARDIUM No pericardial effusion. Rob Ba MD (Electronically Signed) Final Date:19 March 2017 12:19
--- NOTE | 2017-03-19 14:05 | HHI.PR ---
Subjective Remarks Patient c/o pain all over his body but specially in the left upper quadrant radiating to the right lower quadrant. Pain is constant and worst with palpation. Denies nausea or vomiting Low grade temp with a Tmax of 100.7 last night tachycardic. Objective Vitals Vital Signs Date Time Temp Pulse Resp B/P (MAP) Pulse Ox O2 Delivery O2 Flow Rate FiO2 03/19/17 12:00 98.4 116 17 165/86 (112) 99 03/19/17 09:23 18 03/19/17 08:25 18 03/19/17 08:00 98.2 97 17 161/91 (114) 99 03/19/17 05:30 99.1 03/19/17 00:00 100.7 133 20 150/88 (108) 100 03/18/17 20:00 99.7 126 20 162/98 (119) 100 03/18/17 16:00 98.6 121 18 159/89 (112) 100 I/O 03/18/17 03/18/17 03/18/17 03/19/17 03/19/17 03/19/17 07:00 15:00 23:00 07:00 15:00 23:00 Intake Total 100 ml 200 ml 900 ml 200 ml Output Total 1100 ml 1000 ml 750 ml Balance -1000 ml 200 ml -100 ml -550 ml Intake Oral 700 ml IV Total 100 ml 200 ml 200 ml 200 ml Output Urine Total 1100 ml 1000 ml 750 ml # Bowel Movements 2 Result Diagram: 03/19/17 0525 03/19/17 0525 Imaging Last Impressions Abdomen/Pelvis CT 03/13/17 0000 Signed Impressions: Service Date/Time: February 15:19 - CONCLUSION: 1. Moderate-sized bilateral effusions with consolidative changes. 2. Moderate hepatosplenomegaly. 3. Ascites diffusely throughout the abdomen. 4. Compared to previous the effusions have enlarged. The ascites is new. The liver and spleen are stable in size. Natalio Way MD Chest X-Ray 03/10/17 0000 Signed Impressions: Service Date/Time: Friday, March 10, 2017 12:09 - CONCLUSION: No acute disease. There is no evidence of pneumonia. Jase Estes MD Objective Remarks AAOx3, moderate distress due to pain Clear lungs BL Abdomen very tender diffusely but tenderness more prominent on left upper quadrant and right lower quadrant. Lungs are clear but diminished auscultation bilaterally +2 Edema in lower extremities Procedures None Medications and IVs Current Medications Medications (Trade) Dose Ordered Sig/Jaya Route Start Time Stop Time Status Last Admin Sodium Chloride 1,000 ml @ 100 mls/hr Q10H IV 03/10/17 14:22 03/17/17 15:17 (NS Flush) 2 ml UNSCH PRN IV FLUSH 03/10/17 14:30 03/17/17 03:09 (NS Flush) 2 ml BID IV FLUSH 03/10/17 21:00 03/19/17 08:31 (Zofran Inj) 4 mg Q6H PRN IVP 03/10/17 14:30 03/15/17 15:00 (Lovenox Inj) 40 mg Q24H SQ 03/10/17 16:00 03/17/17 15:14 (Narcan Inj) 0.4 mg UNSCH PRN IV PUSH 03/10/17 14:30 (Duoneb Neb) 1 ampule Q2HR NEB PRN NEB 03/10/17 14:30 (Symbicort 160-4.5 Inh) 1 puff Q12HR INH 03/10/17 21:00 03/19/17 08:32 (Neurontin) 100 mg TID PO 03/10/17 18:00 03/19/17 12:26 (D50w (Vial) Inj) 50 ml UNSCH PRN IV PUSH 03/11/17 17:15 (Glucagon Inj) 1 mg UNSCH PRN OTHER 03/11/17 17:15 (Vasotec Inj) 1.25 mg Q6H PRN IV PUSH 03/11/17 17:15 (Narcan Inj) 0.4 mg UNSCH X1 PRN IV PUSH 03/13/17 14:00 03/20/17 13:59 (Pepcid) 20 mg BID PO 03/13/17 21:00 03/19/17 08:30 (Imodium) 2 mg Q4H PRN PO 03/14/17 10:00 03/15/17 15:08 (Theragran Hematinic) 1 tab DAILY PO 03/15/17 09:00 03/19/17 08:28 (Vitamin C) 1,000 mg DAILY PO 03/15/17 09:00 03/19/17 08:29 (Deltasone) 10 mg BID PO 03/15/17 21:00 03/19/17 08:29 (Oramorph Sr) 15 mg Q12HR PO 03/16/17 21:00 03/19/17 08:23 Patient Own Medication (Linagliptin (Tradjenta) 5 MG DAILY PO 03/17/17 10:00 Future Hold (NovoLOG SUPPLEMENTAL SCALE) 1 ACHS SLIDING SCALE SQ 03/17/17 21:00 03/19/17 12:00 (Levemir Inj) 14 units BID SQ 03/18/17 21:00 03/18/17 20:18 (Prinivil) 40 mg DAILY PO 03/19/17 09:00 03/19/17 08:29 Oxacillin Sodium 2 gm/Sodium Chloride 100 ml @ 200 mls/hr Q4H IV 03/18/17 17:00 03/19/17 12:28 (Morphine Inj) 2 mg Q3H PRN IV PUSH 03/18/17 15:15 03/19/17 11:09 (Lioresal) 10 mg Q8H PO 03/18/17 17:00 03/19/17 17:01 03/18/17 16:52 Urinary Catheter: No Vascular Central Line Catheter: No A/P Problem List: (1) Staphylococcus aureus bacteremia with sepsis ICD Code: A41.01 - Sepsis due to Methicillin susceptible Staphylococcus aureus Status: Acute Plan: The patient was admitted to the medical floor, treated with IV antibiotics, infectious disease consulted. Continue IV antibiotics as per infectious disease recommendations. The patient is currently on oxacillin 2 g IV every 4 hours. Case discussed with Dr. Burnette, source of bacteremia still unknown, however patient with dirty or abnormal urine. (2) Liver cirrhosis ICD Code: K74.60 - Unspecified cirrhosis of liver Plan: Dystrophic hepatitis C. Abdomen and pelvis CT performed on 03/13/17 show moderate-sized bilateral pleural effusions with consolidative changes. Moderate hepatosplenomegaly. Ascites diffusely throughout the abdomen which compared to a previous CT abdomen and pelvis obtained on 03/10/17 was increased. There is a report of more prominent portal vein and interval enlargement of the spleen which measures 17.7 cm, findings consistent with increasing portal hypertension. Given abdominal pain and us and patient with sepsis and bacteremia, I will order an ultrasound guided paracentesis to examine the ascitic fluid and rule out SBP. I will start the patient on oral Lasix and spironolactone, place on a sodium restricted diet. (3) Uncontrolled hypertension ICD Code: I10 - Essential (primary) hypertension Plan: Blood pressure is elevated. Lisinopril increased previously at 2 Max dose of 40 mg by mouth daily for hypertension. I will start the patient on Cardura 2 mg by mouth daily for blood pressure control and start the patient on clonidine as needed. (4) COPD (chronic obstructive pulmonary disease) ICD Code: J44.9 - Chronic obstructive pulmonary disease, unspecified Plan: COPD seems to be on prednisone for COPD which seems to be stable. I will taper dose to off. (5) Diabetes mellitus with hyperglycemia ICD Code: E11.65 - Type 2 diabetes mellitus with hyperglycemia (6) Pleural effusion ICD Code: J90 - Pleural effusion, not elsewhere classified Plan: Raw diffusion likely overload and diastolic congestive heart failure secondary to liver cirrhosis. Echocardiogram done today shows a normal systolic function with an EF in the range of 55-60%. Wall thickness measure at the upper limits of normal. Will treat with diuretics. (7) Hyponatremia ICD Code: E87.1 - Hypo-osmolality and hyponatremia Plan: SPECT combination of hypovolemic hyponatremia and pseudo-hyperglycemia given uncontrolled blood sugars. Will treat with Lasix and spironolactone as well as blood sugar control. (8) Ascites of liver ICD Code: R18.8 - Other ascites Status: Chronic Plan: With diuretics as stated above. (9) Anemia ICD Code: D64.9 - Anemia, unspecified Status: Chronic Plan: Anemia seems to be chronic, hemoglobin seems to be trending down. Recent previous records reviewed on January 2017 show that the patient's hemoglobin was near normal. I will check iron studies and stool guaiac. (10) Anasarca ICD Code: R60.1 - Generalized edema Status: Acute Plan: A shunt with increasing bilateral pleural effusions, ascites and lower extremity edema. Anasarca likely secondary to combination of liver cirrhosis and congestive heart failure. (11) Abdominal pain ICD Code: R10.9 - Unspecified abdominal pain Status: Acute Plan: Patient complains of abdominal pain especially in the left upper quadrant radiating to the right lower quadrant. Patient has had 2 abdominal CTs on this admission as described above. Suspect abdominal pain is likely secondary from ascites and hepatosplenomegaly. Consult gastroenterology. Assessment and Plan GI Prophylaxis: Add PPI given abdominal pain and current steroid use. VT prophylaxis: On Lovenox subcutaneous daily which I will place on hold given recent drop in hemoglobin. Continue SCDs. Discharge Planning Tinea to monitor in the medical floor. Problem Qualifiers (1) COPD (chronic obstructive pulmonary disease): Qualified Codes: J42 - Unspecified chronic bronchitis (2) Anemia: Qualified Codes: D64.9 - Anemia, unspecified David Braswell MD Mar 19, 2017 14:05
--- NOTE | 2017-03-19 14:18 | HHI.IDPN ---
Note Infectious Disease Note Patient complains of aches all over same. Mostly in the abdomen. Feels that if his abdominal pain is improved he would feel fine. Denies chills, SOB, nausea. Afebrile. Low grade fever earlier. Blood culture repeat has staph aureus from 03/16. Blood culture 03/17 has no growth day 2. Prior culture on 03/10 has staph aureus and urine culture has staph aureus. 2D ECHO has no vegetations. The patient underwent right colon resection and also small bowel resection for ischemic cecum and fascia and partial ischemia of the distal terminal ileum on 01/29/2017. After the surgery and he also had report of Clostridium perfringens at the margins of the surgical tissue on the pathology specimen. PAST MEDICAL HISTORY: 1. Esophageal varices. 2. Hepatitis C. 3. History of cirrhosis. 4. Recent bowel resection. 5. Diabetes mellitus. 6. History of laparoscopic cholecystectomy. 7. History of back surgery. 8. Neuropathy. 9. Vasectomy. 10. History of bladder cancer. 11. History of bilateral knee surgery. 12. History of banding of esophageal varices. ALLERGIES: 1. PENTAZOCINE. 2. CODEINE. 3. KETORFANOL. 4. IV DYE. 5. IODINATED CONTRAST. ANTIBIOTICS: Oxacillin. SOCIAL HISTORY: No alcohol use. No illicit drugs. FAMILY HISTORY: Noncontributory. OBJECTIVE: Vital Signs Date Time Temp Pulse Resp B/P (MAP) Pulse Ox O2 Delivery O2 Flow Rate FiO2 03/19/17 12:00 98.4 116 17 165/86 (112) 99 03/19/17 09:23 18 03/19/17 08:25 18 03/19/17 08:00 98.2 97 17 161/91 (114) 99 03/19/17 05:30 99.1 03/19/17 00:00 100.7 133 20 150/88 (108) 100 03/18/17 20:00 99.7 126 20 162/98 (119) 100 03/18/17 16:00 98.6 121 18 159/89 (112) 100 Laboratory Tests Test 03/19/17 05:25 White Blood Count 10.8 TH/MM3 Red Blood Count 2.91 MIL/MM3 Hemoglobin 7.7 GM/DL Hematocrit 23.6 % Mean Corpuscular Volume 81.1 FL Mean Corpuscular Hemoglobin 26.4 PG Mean Corpuscular Hemoglobin Concent 32.6 % Red Cell Distribution Width 16.6 % Platelet Count 261 TH/MM3 Mean Platelet Volume 7.7 FL Neutrophils (%) (Auto) 74.9 % Lymphocytes (%) (Auto) 16.5 % Monocytes (%) (Auto) 8.0 % Eosinophils (%) (Auto) 0.3 % Basophils (%) (Auto) 0.3 % Neutrophils # (Auto) 8.1 TH/MM3 Lymphocytes # (Auto) 1.8 TH/MM3 Monocytes # (Auto) 0.9 TH/MM3 Eosinophils # (Auto) 0.0 TH/MM3 Basophils # (Auto) 0.0 TH/MM3 CBC Comment DIFF FINAL Differential Comment Laboratory Tests Test 03/19/17 05:25 Blood Urea Nitrogen 13 MG/DL Creatinine 0.63 MG/DL Random Glucose 219 MG/DL Calcium Level 7.9 MG/DL Sodium Level 133 MEQ/L Potassium Level 3.7 MEQ/L Chloride Level 97 MEQ/L Carbon Dioxide Level 28.3 MEQ/L Anion Gap 8 MEQ/L Estimat Glomerular Filtration Rate 128 ML/MIN Microbiology Date/Time Source Procedure Growth Status 03/17/17 05:20 Blood Peripheral Aerobic Blood Culture - Preliminary NO GROWTH IN 2 DAYS Resulted 03/17/17 05:20 Blood Peripheral Anaerobic Blood Culture - Preliminary NO GROWTH IN 2 DAYS Resulted 03/16/17 15:25 Blood Peripheral Aerobic Blood Culture - Final Staphylococcus Aureus Resulted 03/16/17 15:25 Blood Peripheral Anaerobic Blood Culture - Preliminary NO GROWTH IN 3 DAYS Resulted 03/16/17 15:20 Blood Peripheral Aerobic Blood Culture - Preliminary Staphylococcus Aureus Resulted 03/16/17 15:20 Blood Peripheral Anaerobic Blood Culture - Preliminary NO GROWTH IN 3 DAYS Resulted 03/19/17 05:15 Urine Clean Catch Urine Culture Pending Received PHYSICAL EXAMINATION: GENERAL: No acute distress. Awake and alert and oriented. HEAD, EYES, EARS, NOSE, THROAT: Head is atraumatic. Extraocular movements grossly intact, pupils reactive to light. No icterus. Oropharynx moist mucosa without lesions. NECK: Supple. LUNGS: Clear breath sounds. HEART: Regular S1-S2 without murmurs, rubs or gallops. ABDOMEN: Midline surgical incision appears intact. Positive bowel sounds. Tenderness on palpation of the right lower quadrant. The abdomen is a little protuberant. EXTREMITIES: No clubbing, cyanosis or edema. SKIN: No rash. NEUROLOGIC: No gross focal findings. PSYCHIATRIC: The patient is calm and pleasant and cooperative. IMPRESSION: 1. Bacteremia due to staph aureus. Persistent positive blood cultures. 2. Urinary tract infection due to staph aureus. Probably is the source. However give the persisting blood culture could have another nidus. 3. Abdominal pain of questionable etiology. RECOMMENDATIONS: 1. Continue Oxacillin. 2. Monitor blood and repeat urine culture. 3. Monitor clinical status. Florentino Burnette MD Mar 19, 2017 14:18
[2017-03-19] MEDS: HYDROmorphone HCL PF 1 MG/ML VIAL IV PUSH PRN ×3 (14:38→21:37)
--- NOTE | 2017-03-19 15:38 | RADRPT ---
EXAM DATE/TIME: 03/19/2017 14:59 [facility] COMPARISON: No previous studies available for comparison. INDICATIONS : Ascites. MEDICAL HISTORY : Hypercholesterolemia. Chronic obstructive pulmonary disease.Deep venous thrombosis. Sciatica. Neuropa thy. Hypertension. Chronic pancreatitis. Hepatitis C. Kidney stones. Rheumatoid arthritis. Diabetes. Esophogeal varices. Bladder cancer. SURGICAL HISTORY : Cholecystectomy. Appendectomy. Splenic repair. Left hand surgery. Right knee surgery. Vasectomy. Lum bar surgery. Bowel repair. ENCOUNTER: Initial ACUITY: 1 day PAIN SCORE: 0/10 LOCATION: Abdomen. AREA EVALUATED: Abdomen. FINDINGS: Imaging of the abdomen and pelvis was performed to evaluate for ascites for possible paracentesis. Th ere is small amount of fluid within the right upper, right lower and left lower quadrant. CONCLUSION: Small amount of abdominal ascites. Fluid could be obtained for diagnostic purposes. If paracentesis i s for therapeutic purposes then reimaging could be obtained in 5-7 days. Titi Hinds MD on March 19, 2017 at 15:34 Board Certified Radiologist. This report was verified electronically.
[2017-03-19 16:00] VITALS: BP 162/83; PULSE 108; RESP 18; TEMP 99; O2SAT 100
[2017-03-19] MEDS: ENOXAPARIN SODIUM 40 MG/0.4 ML SYRINGE SQ SCH (16:00)
--- NOTE | 2017-03-19 16:13 | PD.CONS ---
HPI History of Present Illness This is a 66 year old male with hx ischemic bowel s/p resection, chronic pancreatitis who presented from [facility] with c/o fatigue, abd pain, swollen joints. He says he has had abd pain since before his surgery; it never really went away. THe pain is in the LUQ and radiates to the RLQ. He has had loose stool since this admission. He had colon and small bowel resection for ischemia in january here with Dr Jordan, clostridium perfingens found in surgical margins , and per reports made a good recovery. He was d/c to [facility] and says he started feeling badly 6 days after. His last colonoscopy was a year ago with Dr Christy and polyps were found. He has had multiple ERCPs and says the last one was at the time of the colonoscopy a year ago. Hx chronic pancreatitis. He has been told he has liver dz. Denies significant ETOH consumption. He has hx hep C he says from blood transfusion and was treated unsuccessfully with ribavirin and interferon. (Isabelle Gold) PFSH Past Medical History Cirrhosis Hep C HTN COPD DM Hx of DVT chronic pancreatitis Past Surgical History hand surgery appendectomy cholecystectomy repair of spleen after trauma two back surgeries multiple ERCPs (Isabelle Gold) Coded Allergies: Iodinated Contrast- Oral and IV Dye (Unverified Allergy, Severe, rash/ flush, 03/10/17) butorphanol (Unverified Allergy, Severe, rash, 03/10/17) codeine (Unverified Allergy, Severe, breathing probs, 03/10/17) pentazocine (Unverified Allergy, Severe, breathing probs, 03/10/17) Family History mother had lupus and of pneumonia. father had colon cancer and DM. Social History Smoking 6 cigs/day. No ETOH use No illicit drug abuse (Isabelle Gold) Review of Systems Constitutional: COMPLAINS OF: Fever, Weight loss Eyes: DENIES: Blurred vision Ears, nose, mouth, throat: DENIES: Hearing loss Respiratory: DENIES: Hemoptysis Cardiovascular: DENIES: Chest pain Gastrointestinal: COMPLAINS OF: Abdominal pain, Diarrhea, DENIES: Black stools , Bloody stools, Constipation, Nausea, Vomiting, Swelling of Abdomen Genitourinary: DENIES: Hematuria Musculoskeletal: COMPLAINS OF: Joint Swelling Integumentary: DENIES: Jaundice Neurologic: DENIES: Headache Psychiatric: DENIES: Confusion (Isabelle Gold) GI Exam Vitals I&O Vital Signs Date Time Temp Pulse Resp B/P (MAP) Pulse Ox O2 Delivery O2 Flow Rate FiO2 03/19/17 12:00 98.4 116 17 165/86 (112) 99 03/19/17 09:23 18 03/19/17 08:25 18 03/19/17 08:00 98.2 97 17 161/91 (114) 99 03/19/17 05:30 99.1 03/19/17 00:00 100.7 133 20 150/88 (108) 100 03/18/17 20:00 99.7 126 20 162/98 (119) 100 03/18/17 16:00 98.6 121 18 159/89 (112) 100 I/O 03/18/17 03/18/17 03/18/17 03/19/17 03/19/17 03/19/17 07:00 15:00 23:00 07:00 15:00 23:00 Intake Total 100 ml 200 ml 900 ml 200 ml Output Total 1100 ml 1000 ml 750 ml Balance -1000 ml 200 ml -100 ml -550 ml Intake Oral 700 ml IV Total 100 ml 200 ml 200 ml 200 ml Output Urine Total 1100 ml 1000 ml 750 ml # Bowel Movements 2 Imaging Last Impressions Abdomen/Pelvis CT 03/13/17 0000 Signed Impressions: Service Date/Time: February 15:19 - CONCLUSION: 1. Moderate-sized bilateral effusions with consolidative changes. 2. Moderate hepatosplenomegaly. 3. Ascites diffusely throughout the abdomen. 4. Compared to previous the effusions have enlarged. The ascites is new. The liver and spleen are stable in size. Natalio Way MD Chest X-Ray 03/10/17 0000 Signed Impressions: Service Date/Time: Friday, March 10, 2017 12:09 - CONCLUSION: No acute disease. There is no evidence of pneumonia. Jase Estes MD Laboratory Test 03/19/17 05:15 03/19/17 05:25 Urine Color LIGHT-YELLOW Urine Turbidity CLEAR Urine pH 6.5 Urine Specific [place] 1.014 Urine Protein 30 mg/dL Urine Glucose (UA) 1000 mg/dL Urine Ketones NEG mg/dL Urine Occult Blood MOD Urine Nitrite NEG Urine Bilirubin NEG Urine Urobilinogen LESS THAN 2.0 MG/DL Urine Leukocyte Esterase TRACE Urine RBC 18 /hpf Urine WBC 13 /hpf Urine Yeast (Budding) FEW Microscopic Urinalysis Comment CULTURE INDICATED White Blood Count 10.8 TH/MM3 Red Blood Count 2.91 MIL/MM3 Hemoglobin 7.7 GM/DL Hematocrit 23.6 % Mean Corpuscular Volume 81.1 FL Mean Corpuscular Hemoglobin 26.4 PG Mean Corpuscular Hemoglobin Concent 32.6 % Red Cell Distribution Width 16.6 % Platelet Count 261 TH/MM3 Mean Platelet Volume 7.7 FL Neutrophils (%) (Auto) 74.9 % Lymphocytes (%) (Auto) 16.5 % Monocytes (%) (Auto) 8.0 % Eosinophils (%) (Auto) 0.3 % Basophils (%) (Auto) 0.3 % Neutrophils # (Auto) 8.1 TH/MM3 Lymphocytes # (Auto) 1.8 TH/MM3 Monocytes # (Auto) 0.9 TH/MM3 Eosinophils # (Auto) 0.0 TH/MM3 Basophils # (Auto) 0.0 TH/MM3 CBC Comment DIFF FINAL Differential Comment Blood Urea Nitrogen 13 MG/DL Creatinine 0.63 MG/DL Random Glucose 219 MG/DL Calcium Level 7.9 MG/DL Sodium Level 133 MEQ/L Potassium Level 3.7 MEQ/L Chloride Level 97 MEQ/L Carbon Dioxide Level 28.3 MEQ/L Anion Gap 8 MEQ/L Estimat Glomerular Filtration Rate 128 ML/MIN Date/Time Source Procedure Growth Status 03/17/17 05:20 Blood Peripheral Aerobic Blood Culture - Preliminary NO GROWTH IN 2 DAYS Resulted 03/17/17 05:20 Blood Peripheral Anaerobic Blood Culture - Preliminary NO GROWTH IN 2 DAYS Resulted 03/19/17 05:15 Urine Clean Catch Urine Culture Pending Received Physical Examination HEENT: PERRL; normocephalic; atraumatic; no jaundice. CHEST: CTA CARDIAC: RRR ABDOMEN: Soft, mildly, diffusely tender; no hepatosplenomegaly; bowel sounds are present in all four quadrants. EXTREMITIES: No clubbing, cyanosis; + BLE edema SKIN: Normal; no rash; no jaundice. GENERAL LOT ATTENDANT: No focal deficits; alert and oriented times three. (Isabelle Gold) Assessment and Plan Plan ASSESSMENT - abd pain - LUQ pain that radiates to RLQ unclear etiology. hx chronic pancreatitis. s/p bowel resection for ischemia 01/2017. Last colonoscopy 1 y ago polyps found. - ascites on CT - unclear etiology. admits hx hep c s/p unsuccessful drinking, liver dz. CT 03/10 suggestive portal HTN, CT 03/13 shows enlarged liver, ascites no LFT derangement. low albumin. diagnostic paracentesis pending will get liver w/u r/o other causes liver dz - anemia - gradual decline since 01/29 when HH was WNL no prior hx GIB stool occult and iron studies pending. - MSSA bacteremia, per primary, ID following, source unclear - anasarca - on 25mg spironolactone, 40mg lasix BID PLAN - await paracentesis - cont diuretics - HCV quant & genotype - liver w/u - low sodium diet - further recs to follow This pt seen by myself and DR Sellers and this note is written on her behalf (Isabelle Gold) Physician Comments seen, examined agree with above also history of bladder cancer s/p surgery CTA r/o mesenteric ischemia trial of pancreatic enzymes with meals history of acute hep b in 2105-we will check viral load may add albumin iv (Donna Sellers MD) Isabelle Gold Mar 19, 2017 16:13 Donna Sellers MD Mar 19, 2017 18:20
[2017-03-19] MEDS: FUROSEMIDE 40 MG/4 ML VIAL IV PUSH SCH (17:30)
[2017-03-19] MEDS: SPIRONOLACTONE 25 MG TAB PO SCH (17:42)
[2017-03-19 20:00] VITALS: BP 112/71; PULSE 133; RESP 18; TEMP 97.1; O2SAT 98
[2017-03-19] MEDS: ALBUMIN 25% INJ 100 ML IV SCH (20:45)
[2017-03-19 20:54] LABS: APTT (PATIENT) 29.5 SEC (24.3-30.1); INTERNATIONAL NORMALIZED RATIO 1.1 RATIO; PROTHROMBIN TIME - PATIENT 12.5 SEC (9.8-11.6)
[2017-03-20] VITALS: BP 120/67; PULSE 118; RESP 17; TEMP 100.5; O2SAT 96
[2017-03-20] MEDS: OXACILLIN INJ 2 GM in SODIUM CHLORIDE 0.9% INJ 100 ML IV SCH ×6 (00:58→20:28)
[2017-03-20] MEDS: HYDROmorphone HCL PF 1 MG/ML VIAL IV PUSH PRN ×6 (01:39→21:23)
[2017-03-20] MEDS: SODIUM CHLOR 0.9% 1000 ML INJ 1,000 ML IV SCH ×2 (04:22→14:22)
[2017-03-20 06:54] LABS: MEAN CELL VOLUME 82.3 FL (80.0-100.0); MEAN CORPUSCULAR HEMOGLOBIN 27.3 PG (27.0-34.0); MEAN CORPUSCULAR HGB CONC 33.2 % (32.0-36.0); PLATELET COUNT 257 TH/MM3 (150-450); RED CELL DISTRIBUTION WIDTH 17.5 % (11.6-17.2); REVIEW FLAG FINAL; WHITE BLOOD COUNT 10.3 TH/MM3 (4.0-11.0)
[2017-03-20 07:22] LABS: BICARBONATE 28.1 MEQ/L (21.0-32.0); POTASSIUM 3.6 MEQ/L (3.5-5.1)
[2017-03-20 08:00] VITALS: BP 151/77; PULSE 102; RESP 19; TEMP 99.4; O2SAT 98
[2017-03-20] MEDS: INSULIN ASPART SUPPLEMENTAL SCALE SQ SCH ×3 (08:00→20:37)
[2017-03-20] MEDS: ALBUMIN 25% INJ 100 ML IV SCH ×2 (08:15→19:29)
[2017-03-20] MEDS: SODIUM CHLORIDE 0.9% FLUSH 10 ML FLUSH IV FLUSH SCH ×2 (08:17→19:31)
[2017-03-20] MEDS: BUDESONIDE-FORMOTEROL 160/4.5 MCG INHALER INH SCH ×2 (08:17→19:29)
[2017-03-20] MEDS: FAMOTIDINE 20 MG TAB PO SCH ×2 (08:22→19:29)
[2017-03-20] MEDS: GABAPENTIN 100 MG CAP PO SCH ×3 (08:22→17:24)
[2017-03-20] MEDS: MORPHINE SULFATE 15 MG CONTROLLED RELEASE TAB PO SCH ×2 (08:22→20:37)
[2017-03-20] MEDS: ASCORBIC ACID 500 MG TAB PO SCH (08:22)
[2017-03-20] MEDS: predniSONE 10 MG TAB PO SCH (08:22)
[2017-03-20] MEDS: MULTIVITAMIN HEMATINIC THERAPEUTIC TAB PO SCH (08:22)
[2017-03-20] MEDS: SPIRONOLACTONE 25 MG TAB PO SCH (08:23)
[2017-03-20] MEDS: FUROSEMIDE 40 MG/4 ML VIAL IV PUSH SCH ×2 (08:23→17:28)
[2017-03-20] MEDS: LISINOPRIL 20 MG TAB PO SCH (08:23)
[2017-03-20] MEDS: INSULIN DETEMIR 100 UNITS/ML VIAL SQ SCH ×2 (09:00→20:36)
[2017-03-20 12:00] VITALS: BP 139/88; PULSE 114; RESP 17; TEMP 98.4; O2SAT 100
[2017-03-20 16:00] VITALS: BP 124/80; PULSE 100; RESP 18; TEMP 98.9; O2SAT 100
[2017-03-20] MEDS: ENOXAPARIN SODIUM 40 MG/0.4 ML SYRINGE SQ SCH (16:00)
--- NOTE | 2017-03-20 16:15 | HHI.GIFU ---
Subjective Remarks Pt resting in bed. Still with abd pain. going for paracentesis. ([facility]) Objective Vitals I&O Vital Signs Date Time Temp Pulse Resp B/P (MAP) Pulse Ox O2 Delivery O2 Flow Rate FiO2 03/20/17 12:00 98.4 114 17 139/88 (105) 100 03/20/17 08:00 99.4 102 19 151/77 (101) 98 03/20/17 06:12 17 03/20/17 00:00 100.5 118 17 120/67 (84) 96 03/19/17 21:49 18 03/19/17 20:00 97.1 133 18 112/71 (85) 98 I/O 03/19/17 03/19/17 03/19/17 03/20/17 03/20/17 03/20/17 07:00 15:00 23:00 07:00 15:00 23:00 Intake Total 200 ml 200 ml 1740 ml 1180 ml 300 ml Output Total 750 ml 1700 ml 300 ml Balance -550 ml 200 ml 40 ml 880 ml 300 ml Intake Oral 1440 ml 480 ml IV Total 200 ml 200 ml 300 ml 700 ml 300 ml Output Urine Total 750 ml 1700 ml 300 ml # Bowel Movements 3 Laboratory Laboratory Tests Test 03/19/17 20:04 03/19/17 21:39 03/20/17 06:26 Prothrombin Time 12.5 Prothromb Time International Ratio 1.1 Activated Partial Thromboplast Time 29.5 Iron Level 34 Ferritin 301 Lactate Dehydrogenase 182 Total Protein 8.3 Hepatitis B Surface Antigen POSITIVE White Blood Count 10.3 Red Blood Count 2.80 Hemoglobin 7.6 Hematocrit 23.0 Mean Corpuscular Volume 82.3 Mean Corpuscular Hemoglobin 27.3 Mean Corpuscular Hemoglobin Concent 33.2 Red Cell Distribution Width 17.5 Platelet Count 257 Mean Platelet Volume 7.4 Blood Urea Nitrogen 20 Creatinine 0.86 Random Glucose 357 Calcium Level 7.5 Sodium Level 134 Potassium Level 3.6 Chloride Level 98 Carbon Dioxide Level 28.1 Anion Gap 8 Estimat Glomerular Filtration Rate 89 Tumor Marker Alpha Fetoprotein 2.9 Date/Time Source Procedure Growth Status 03/17/17 05:20 Blood Peripheral Aerobic Blood Culture - Preliminary NO GROWTH IN 3 DAYS Resulted 03/17/17 05:20 Blood Peripheral Anaerobic Blood Culture - Preliminary NO GROWTH IN 3 DAYS Resulted 03/19/17 05:15 Urine Clean Catch Urine Culture - Preliminary Yeast-Id To Follow Resulted Imaging Last Impressions Abdomen Ultrasound 03/19/17 0000 Signed Impressions: Service Date/Time: Sunday, March 19, 2017 14:59 - CONCLUSION: Small amount of abdominal ascites. Fluid could be obtained for diagnostic purposes. If paracentesis is for therapeutic purposes then reimaging could be obtained in 5- 7 days. Titi Hinds MD Abdomen/Pelvis CT 03/13/17 0000 Signed Impressions: Service Date/Time: February 15:19 - CONCLUSION: 1. Moderate-sized bilateral effusions with consolidative changes. 2. Moderate hepatosplenomegaly. 3. Ascites diffusely throughout the abdomen. 4. Compared to previous the effusions have enlarged. The ascites is new. The liver and spleen are stable in size. Natalio aWy MD Chest X-Ray 03/10/17 0000 Signed Impressions: Service Date/Time: Friday, March 10, 2017 12:09 - CONCLUSION: No acute disease. There is no evidence of pneumonia. Jase Estes MD Physical Exam HEENT: PERRL; normocephalic; atraumatic; no jaundice. CHEST: CTA CARDIAC: RRR ABDOMEN: Soft, lower quadrants distended, diffuse TTP; bowel sounds are present in all four quadrants. EXTREMITIES: No clubbing, cyanosis, + BLE edema SKIN: Normal; no rash; no jaundice. VALET MANAGER: No focal deficits; alert and oriented times three. ([facility]) Assessment and Plan Plan ASSESSMENT - abd pain - LUQ pain that radiates to RLQ unclear etiology. hx chronic pancreatitis. s/p bowel resection for ischemia 01/2017. Last colonoscopy 1 y ago polyps found. c diff neg. still with abd pain. started on PO pancreatic enzymes - ascites on CT - unclear etiology. admits hx hep c s/p unsuccessful drinking, liver dz. CT 03/10 suggestive portal HTN, CT 03/13 shows enlarged liver, ascites no LFT derangement, on albumin. AFP 2.9. rest of liver w/u pending. per US fluid enough for diagnostic paracentesis but not therapeutic; paracentesis pending - anemia - gradual decline since 01/29 when HH was WNL no prior hx GIB stool occult and iron studies pending. - MSSA bacteremia, per primary, ID following, source unclear - anasarca - on diuretics PLAN - await paracentesis - cont diuretics - await HCV quant & genotype - await rest of liver w/u - low sodium diet - further recs to follow This pt seen by myself and Dr Mariee and this note is written on his behalf ([facility]abel[facility]) Physician Comments Seen with cornelius Pedraza as above. Further recommendations to follow pending paracentesis. (Jason Mariee MD) Isabelle Gold Mar 20, 2017 16:15 Jason Mariee MD Mar 20, 2017 21:28
[2017-03-20 20:54] VITALS: BP 150/80; PULSE 99; RESP 20; TEMP 98.9; O2SAT 100
--- NOTE | 2017-03-20 20:57 | RADRPT ---
EXAM DATE/TIME: 03/20/2017 18:32 [place] COMPARISON: No previous studies available for comparison. INDICATIONS : Evaluate for mesenteric ischemia. MEDICAL HISTORY : Hypercholesterolemia. Chronic obstructive pulmonary disease. Deep venous thrombosis. Sciatica. Neurop athy. Hypertension. Chronic pancreatitis. Hepatitis C. Kidney stones. SURGICAL HISTORY : Cholecystectomy. Appendectomy. Splenic repair. Left hand surgery. Right knee surgery. Vasectomy. Lumb ar surgery. Bowel repair. ENCOUNTER: Subsequent ACUITY: 1 day PAIN SCORE: 10/10 LOCATION: Abdomen. AORTA: SAGITTAL PROXIMAL: 78.5 cm/sec SAGITTAL MID: 61.3 cm/sec SAGITTAL DISTAL: 53.9 cm/sec CELIAC ARTERY: CA ORIGIN: 249.6 cm/sec CA PROXIMAL: 332.5 cm/sec CA MID: 327.9 cm/sec CA DISTAL: 351.1 cm/sec HEPATIC ARTERY: 89.1 cm/sec SPLENIC ARTERY: 120.8 cm/sec SUPERIOR MESENTERIC ARTERY: SMA PROXIMAL: 177.8 cm/sec SMA MID: 106.7 cm/sec SMA DISTAL: 128.6 cm/sec FINDINGS: Elevated velocities in the celiac artery corresponding to greater than 70% stenosis according to [facility] criteria of greater than 200 cm/s. The velocities in the superior mesenteric artery are below th e criteria for greater than 50% stenosis. CONCLUSION: 1. 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 2. Less than 50% stenosis in the superior mesenteric artery. Jase Estes MD on March 20, 2017 at 20:50 Board Certified Radiologist. This report was verified electronically.
--- NOTE | 2017-03-20 21:28 | HHI.PR ---
Subjective Remarks late entry - patient seen at 11:00 am Patient states pain control is much improved still c/o abdominal pain however Objective Vitals Vital Signs Date Time Temp Pulse Resp B/P (MAP) Pulse Ox O2 Delivery O2 Flow Rate FiO2 03/20/17 20:54 98.9 99 20 150/80 (103) 100 03/20/17 16:00 98.9 100 18 124/80 (95) 100 03/20/17 12:00 98.4 114 17 139/88 (105) 100 03/20/17 08:00 99.4 102 19 151/77 (101) 98 03/20/17 06:12 17 03/20/17 00:00 100.5 118 17 120/67 (84) 96 03/19/17 21:49 18 I/O 03/19/17 03/19/17 03/19/17 03/20/17 03/20/17 03/20/17 07:00 15:00 23:00 07:00 15:00 23:00 Intake Total 200 ml 200 ml 1740 ml 1180 ml 300 ml 720 ml Output Total 750 ml 1700 ml 300 ml 1325 ml Balance -550 ml 200 ml 40 ml 880 ml 300 ml -605 ml Intake Oral 1440 ml 480 ml 720 ml IV Total 200 ml 200 ml 300 ml 700 ml 300 ml Output Urine Total 750 ml 1700 ml 300 ml 1325 ml # Voids 3 # Bowel Movements 3 3 Result Diagram: 03/20/1762503/20/17 06 Imaging Last Impressions Abdomen Ultrasound 03/20/17 0000 Signed Impressions: Service Date/Time: March 18:32 - CONCLUSION: 1. 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 2. Less than 50%% stenosis in the superior mesenteric artery. Jase Estes MD Abdomen/Pelvis CT 03/13/17 0000 Signed Impressions: Service Date/Time: February 15:19 - CONCLUSION: 1. Moderate-sized bilateral effusions with consolidative changes. 2. Moderate hepatosplenomegaly. 3. Ascites diffusely throughout the abdomen. 4. Compared to previous the effusions have enlarged. The ascites is new. The liver and spleen are stable in size. Natalio Way MD Chest X-Ray 03/10/17 0000 Signed Impressions: Service Date/Time: Friday, March 10, 2017 12:09 - CONCLUSION: No acute disease. There is no evidence of pneumonia. Jase Estes MD Objective Remarks AAOx3, moderate distress due to pain Clear lungs BL Abdomen very tender diffusely but tenderness more prominent on left upper quadrant and right lower quadrant. Lungs are clear but diminished auscultation bilaterally +2 Edema in lower extremities Procedures None Medications and IVs Current Medications Medications (Trade) Dose Ordered Sig/Jaya Route Start Time Stop Time Status Last Admin Sodium Chloride 1,000 ml @ 100 mls/hr Q10H IV 03/10/17 14:22 03/20/17 14:22 (NS Flush) 2 ml UNSCH PRN IV FLUSH 03/10/17 14:30 03/17/17 03:09 (NS Flush) 2 ml BID IV FLUSH 03/10/17 21:00 03/20/17 19:31 (Zofran Inj) 4 mg Q6H PRN IVP 03/10/17 14:30 03/15/17 15:00 (Lovenox Inj) 40 mg Q24H SQ 03/10/17 16:00 03/17/17 15:14 (Narcan Inj) 0.4 mg UNSCH PRN IV PUSH 03/10/17 14:30 (Duoneb Neb) 1 ampule Q2HR NEB PRN NEB 03/10/17 14:30 (Symbicort 160-4.5 Inh) 1 puff Q12HR INH 03/10/17 21:00 03/20/17 19:29 (Neurontin) 100 mg TID PO 03/10/17 18:00 03/20/17 13:20 (D50w (Vial) Inj) 50 ml UNSCH PRN IV PUSH 03/11/17 17:15 (Glucagon Inj) 1 mg UNSCH PRN OTHER 03/11/17 17:15 (Vasotec Inj) 1.25 mg Q6H PRN IV PUSH 03/11/17 17:15 (Pepcid) 20 mg BID PO 03/13/17 21:00 03/20/17 19:29 (Imodium) 2 mg Q4H PRN PO 03/14/17 10:00 03/15/17 15:08 (Theragran Hematinic) 1 tab DAILY PO 03/15/17 09:00 03/20/17 08:22 (Vitamin C) 1,000 mg DAILY PO 03/15/17 09:00 03/20/17 08:22 Patient Own Medication (Linagliptin (Tradjenta) 5 MG DAILY PO 03/17/17 10:00 Future Hold (NovoLOG SUPPLEMENTAL SCALE) 1 ACHS SLIDING SCALE SQ 03/17/17 21:00 03/20/17 20:37 (Levemir Inj) 14 units BID SQ 03/18/17 21:00 03/20/17 20:36 (Prinivil) 40 mg DAILY PO 03/19/17 09:00 03/20/17 08:23 Oxacillin Sodium 2 gm/Sodium Chloride 100 ml @ 200 mls/hr Q4H IV 03/18/17 17:00 03/20/17 20:28 (Oramorph Sr) 30 mg Q12HR PO 03/19/17 21:00 03/20/17 20:37 (Dilaudid Pf Inj) 1 mg Q4H PRN IV PUSH 03/19/17 13:30 03/20/17 21:23 (Lasix Inj) 40 mg BID@09,18 IV PUSH 03/19/17 18:00 03/20/17 08:23 (Aldactone) 25 mg DAILY PO 03/19/17 15:00 03/20/17 08:23 (Deltasone) 10 mg DAILY PO 03/20/17 09:00 03/20/17 08:22 Albumin Human 100 ml @ 60 mls/hr Q12H IV 03/19/17 20:00 03/20/17 19:29 A/P Problem List: (1) Staphylococcus aureus bacteremia with sepsis ICD Code: A41.01 - Sepsis due to Methicillin susceptible Staphylococcus aureus Status: Acute Plan: The patient was admitted to the medical floor, treated with IV antibiotics, infectious disease consulted. Continue IV antibiotics as per infectious disease recommendations. The patient is currently on oxacillin 2 g IV every 4 hours. Case discussed with Dr. Burnette, source of bacteremia still unknown, however patient with dirty or abnormal urine. 03/20 Urine culture is growing yeast. Will start patient on oral fluconazole. (2) Liver cirrhosis ICD Code: K74.60 - Unspecified cirrhosis of liver Plan: Dystrophic hepatitis C. Abdomen and pelvis CT performed on 03/13/17 show moderate-sized bilateral pleural effusions with consolidative changes. Moderate hepatosplenomegaly. Ascites diffusely throughout the abdomen which compared to a previous CT abdomen and pelvis obtained on 03/10/17 was increased. There is a report of more prominent portal vein and interval enlargement of the spleen which measures 17.7 cm, findings consistent with increasing portal hypertension. Given abdominal pain and us and patient with sepsis and bacteremia, I will order an ultrasound guided paracentesis to examine the ascitic fluid and rule out SBP. I will start the patient on oral Lasix and spironolactone, place on a sodium restricted diet. 03/20 Continue diuretics, for paracentesis today. (3) Uncontrolled hypertension ICD Code: I10 - Essential (primary) hypertension Plan: Blood pressure is elevated. Lisinopril increased previously at 2 Max dose of 40 mg by mouth daily for hypertension. I will start the patient on Cardura 2 mg by mouth daily for blood pressure control and start the patient on clonidine as needed. 03/20 Cardura was not started. Bp better. Continue lisinopril 40 mg po daily. (4) COPD (chronic obstructive pulmonary disease) ICD Code: J44.9 - Chronic obstructive pulmonary disease, unspecified Plan: COPD seems to be on prednisone for COPD which seems to be stable. Continue prednisone taper. (5) Diabetes mellitus with hyperglycemia ICD Code: E11.65 - Type 2 diabetes mellitus with hyperglycemia Status: Chronic Plan: Blood sugars still severely elevated with blood sugar in the 300's. I will add prandial insulin. Continue Levemir at same dose and continue to monitor blood sugars and cover with SSI with insulin Novolog. (6) Pleural effusion ICD Code: J90 - Pleural effusion, not elsewhere classified Plan: Pleural effusion likely overload and diastolic congestive heart failure secondary to liver cirrhosis. Echocardiogram done today shows a normal systolic function with an EF in the range of 55-60%. Wall thickness measure at the upper limits of normal. 03/20 Continue with diuretics. (7) Hyponatremia ICD Code: E87.1 - Hypo-osmolality and hyponatremia Plan: Suspect combination of hypervolemic hyponatremia and pseudo- hyperglycemia given uncontrolled blood sugars. Continue with Lasix and spironolactone as well as blood sugar control. Sodium slightly improved - Na 134. (8) Ascites of liver ICD Code: R18.8 - Other ascites Status: Chronic Plan: With diuretics as stated above. 03/20 appreciate GI recommendations. Abdominal paracentesis ordered. CTA abdomen cannot be done due to contrast dye allergy. US ordered will follow. (9) Anemia ICD Code: D64.9 - Anemia, unspecified Status: Chronic Plan: Anemia seems to be chronic, hemoglobin seems to be trending down. Recent previous records reviewed on January 2017 show that the patient's hemoglobin was near normal. I will check iron studies and stool guaiac. 2 stool guaiac pending. Iron low, ferrtitn normal - TIBC and percent saturation not done. will order for am. (10) Anasarca ICD Code: R60.1 - Generalized edema Status: Acute Plan: Patient with increasing bilateral pleural effusions, ascites and lower extremity edema. Anasarca likely secondary to combination of liver cirrhosis and congestive heart failure. 03/20 Continue with diuretics. (11) Abdominal pain ICD Code: R10.9 - Unspecified abdominal pain Status: Acute Plan: Patient complains of abdominal pain especially in the left upper quadrant radiating to the right lower quadrant. Patient has had 2 abdominal [address]s on this admission as described above. Suspect abdominal pain is likely secondary from ascites and hepatosplenomegaly. 03/20 Gastroenterology recommendations appreciated. For abdominal paracentesis to r/o sbp, US abdomen ordered to r/o mesenteric ischemia. Continue pain control with Oramorph SR, Dilaudid as needed for breakthrough pain. Assessment and Plan GI Prophylaxis: Add PPI given abdominal pain and current steroid use. VT prophylaxis: On Lovenox subcutaneous daily which I will place on hold given recent drop in hemoglobin. Continue SCDs. Discharge Planning Tinea to monitor in the medical floor. Problem Qualifiers (1) COPD (chronic obstructive pulmonary disease): Qualified Codes: J42 - Unspecified chronic bronchitis (2) Diabetes mellitus with hyperglycemia: Qualified Codes: E11.65 - Type 2 diabetes mellitus with hyperglycemia; Z79.4 - retirement (current) use of insulin (3) Anemia: Qualified Codes: D64.9 - Anemia, unspecified David Braswell MD Mar 20, 2017 21:28
[2017-03-21] MEDS: SODIUM CHLOR 0.9% 1000 ML INJ 1,000 ML IV SCH ×3 (00:22→20:22)
[2017-03-21 00:44] VITALS: BP 148/78; PULSE 93; RESP 19; TEMP 99.4; O2SAT 98
[2017-03-21] MEDS: OXACILLIN INJ 2 GM in SODIUM CHLORIDE 0.9% INJ 100 ML IV SCH ×6 (01:01→21:39)
[2017-03-21] MEDS: HYDROmorphone HCL PF 1 MG/ML VIAL IV PUSH PRN ×6 (01:21→21:34)
[2017-03-21 05:01] VITALS: BP 148/78; PULSE 93; RESP 19; TEMP 99.4; O2SAT 98
[2017-03-21 06:28] LABS: AUTOMATED NEUTROPHIL # 7.1 TH/MM3 (1.8-7.7); BASOPHIL % 0.4 % (0.0-2.0); EOSINOPHIL # 0.1 TH/MM3 (0-0.4); EOSINOPHIL % 0.8 % (0.0-4.0); HEMO FLAGS DIFF FINAL; LYMPH % 22.2 % (9.0-44.0); LYMPHOCYTE # 2.3 TH/MM3 (1.0-4.8); MEAN CELL VOLUME 81.6 FL (80.0-100.0); MEAN CORPUSCULAR HEMOGLOBIN 26.4 PG (27.0-34.0); MEAN CORPUSCULAR HGB CONC 32.3 % (32.0-36.0); MONO % 7.1 % (0.0-8.0); NEUT % 69.5 % (16.0-70.0); PLATELET COUNT 301 TH/MM3 (150-450); RED BLOOD COUNT 3.42 MIL/MM3 (4.50-5.90); RED CELL DISTRIBUTION WIDTH 17.5 % (11.6-17.2); WHITE BLOOD COUNT 10.2 TH/MM3 (4.0-11.0)
[2017-03-21 07:06] LABS: ALT (GPT) 26 U/L (12-78); ANION GAP 8 MEQ/L (5-15); AST (GOT) 28 U/L (15-37); BLOOD UREA NITROGEN 17 MG/DL (7-18); CHLORIDE 99 MEQ/L (98-107); GLOMERULAR FILTRATION RATE 123 ML/MIN (>89); MAGNESIUM 1.7 MG/DL (1.5-2.5); POTASSIUM 3.4 MEQ/L (3.5-5.1); SODIUM (NA) 138 MEQ/L (136-145)
[2017-03-21 07:09] LABS: ALKALINE PHOSPHATASE 86 U/L (45-117); TOTAL BILIRUBIN ADULT 0.5 MG/DL (0.2-1.0)
[2017-03-21 08:00] VITALS: BP 159/82; PULSE 93; RESP 18; TEMP 98.1; O2SAT 100
[2017-03-21] MEDS: INSULIN ASPART SUPPLEMENTAL SCALE SQ SCH ×4 (08:00→20:58)
[2017-03-21] MEDS: INSULIN ASPART 1,000 UNITS/10 ML VIAL SQ SCH ×3 (08:00→16:51)
[2017-03-21] MEDS: BUDESONIDE-FORMOTEROL 160/4.5 MCG INHALER INH SCH ×2 (08:13→20:46)
[2017-03-21] MEDS: ALBUMIN 25% INJ 100 ML IV SCH ×2 (08:13→20:44)
[2017-03-21] MEDS: SODIUM CHLORIDE 0.9% FLUSH 10 ML FLUSH IV FLUSH SCH ×2 (08:13→20:46)
[2017-03-21] MEDS: ASCORBIC ACID 500 MG TAB PO SCH (08:15)
[2017-03-21] MEDS: LISINOPRIL 20 MG TAB PO SCH (08:15)
[2017-03-21] MEDS: GABAPENTIN 100 MG CAP PO SCH ×3 (08:15→16:52)
[2017-03-21] MEDS: FAMOTIDINE 20 MG TAB PO SCH ×2 (08:15→20:44)
[2017-03-21] MEDS: FUROSEMIDE 40 MG/4 ML VIAL IV PUSH SCH ×2 (08:15→16:52)
[2017-03-21] MEDS: predniSONE 10 MG TAB PO SCH (08:15)
[2017-03-21] MEDS: SPIRONOLACTONE 25 MG TAB PO SCH (08:16)
[2017-03-21] MEDS: MULTIVITAMIN HEMATINIC THERAPEUTIC TAB PO SCH (08:16)
[2017-03-21] MEDS: MORPHINE SULFATE 15 MG CONTROLLED RELEASE TAB PO SCH ×2 (08:16→20:45)
[2017-03-21] MEDS: INSULIN DETEMIR 100 UNITS/ML VIAL SQ SCH ×2 (08:16→21:37)
[2017-03-21] MEDS ORDERED: POTASSIUM CHLORIDE 20 MEQ CONTROLLED RELEASE TAB PO ONE (10:15)
[2017-03-21] MEDS: FLUCONAZOLE 100 MG TAB PO SCH (10:41)
[2017-03-21 12:00] VITALS: BP 130/81; PULSE 114; RESP 18; TEMP 98.8; O2SAT 100
--- NOTE | 2017-03-21 13:12 | HHI.IDPN ---
Note Infectious Disease Note Patient says he developed severe pain in the abdomen early this am. Denies chills, SOB, nausea. Afebrile. Blood culture 03/21 - pending. Blood culture repeat has staph aureus from 03/16. Blood culture 03/17 has no growth. Prior blood culture on 03/10 - staph aureus and urine culture had staph aureus. 2D ECHO has no vegetations. The patient underwent right colon resection and also small bowel resection for ischemic cecum and fascia and partial ischemia of the distal terminal ileum on 01/29/2017. After the surgery and he also had report of Clostridium perfringens at the margins of the surgical tissue on the pathology specimen. PAST MEDICAL HISTORY: 1. Esophageal varices. 2. Hepatitis C. 3. History of cirrhosis. 4. Recent bowel resection. 5. Diabetes mellitus. 6. History of laparoscopic cholecystectomy. 7. History of back surgery. 8. Neuropathy. 9. Vasectomy. 10. History of bladder cancer. 11. History of bilateral knee surgery. 12. History of banding of esophageal varices. ALLERGIES: 1. PENTAZOCINE. 2. CODEINE. 3. KETORFANOL. 4. IV DYE. 5. IODINATED CONTRAST. ANTIBIOTICS: Oxacillin. SOCIAL HISTORY: No alcohol use. No illicit drugs. FAMILY HISTORY: Noncontributory. OBJECTIVE: Vital Signs Date Time Temp Pulse Resp B/P (MAP) Pulse Ox O2 Delivery O2 Flow Rate FiO2 03/21/17 12:00 98.8 114 18 130/81 (97) 100 03/21/17 08:00 98.1 93 18 159/82 (107) 100 03/21/17 05:52 18 03/21/17 05:01 99.4 93 19 148/78 (101) 98 03/21/17 00:44 99.4 93 19 148/78 (101) 98 03/20/17 21:37 17 03/20/17 20:54 98.9 99 20 150/80 (103) 100 03/20/17 16:00 98.9 100 18 124/80 (95) 100 Laboratory Tests Test 03/20/17 06:26 03/21/17 05:50 White Blood Count 10.3 TH/MM3 10.2 TH/MM3 Red Blood Count 2.80 MIL/MM3 3.42 MIL/MM3 Hemoglobin 7.6 GM/DL 9.0 GM/DL Hematocrit 23.0 % 28.0 % Mean Corpuscular Volume 82.3 FL 81.6 FL Mean Corpuscular Hemoglobin 27.3 PG 26.4 PG Mean Corpuscular Hemoglobin Concent 33.2 % 32.3 % Red Cell Distribution Width 17.5 % 17.5 % Platelet Count 257 TH/MM3 301 TH/MM3 Mean Platelet Volume 7.4 FL 7.9 FL Neutrophils (%) (Auto) 69.5 % Lymphocytes (%) (Auto) 22.2 % Monocytes (%) (Auto) 7.1 % Eosinophils (%) (Auto) 0.8 % Basophils (%) (Auto) 0.4 % Neutrophils # (Auto) 7.1 TH/MM3 Lymphocytes # (Auto) 2.3 TH/MM3 Monocytes # (Auto) 0.7 TH/MM3 Eosinophils # (Auto) 0.1 TH/MM3 Basophils # (Auto) 0.0 TH/MM3 CBC Comment DIFF FINAL Differential Comment Laboratory Tests Test 03/19/17 20:04 03/20/17 06:26 03/21/17 05:50 Iron Level 34 MCG/DL Ferritin 301 NG/ML Lactate Dehydrogenase 182 U/L Total Protein 8.3 GM/DL 8.3 GM/DL Blood Urea Nitrogen 20 MG/DL 17 MG/DL Creatinine 0.86 MG/DL 0.65 MG/DL Random Glucose 357 MG/DL 83 MG/DL Calcium Level 7.5 MG/DL 8.1 MG/DL Sodium Level 134 MEQ/L 138 MEQ/L Potassium Level 3.6 MEQ/L 3.4 MEQ/L Chloride Level 98 MEQ/L 99 MEQ/L Carbon Dioxide Level 28.1 MEQ/L 31.0 MEQ/L Anion Gap 8 MEQ/L 8 MEQ/L Estimat Glomerular Filtration Rate 89 ML/MIN 123 ML/MIN Avila-[id number] 216 mg/dL Tumor Marker Alpha Fetoprotein 2.9 NG/ML Albumin 2.3 GM/DL Phosphorus Level 4.2 MG/DL Magnesium Level 1.7 MG/DL Alkaline Phosphatase 86 U/L Aspartate Amino Transf (AST/SGOT) 28 U/L Alanine Aminotransferase (ALT/SGPT) 26 U/L Total Bilirubin 0.5 MG/DL Microbiology Date/Time Source Procedure Growth Status 03/21/17 05:50 Blood Peripheral Aerobic Blood Culture Pending Received 03/21/17 05:50 Blood Peripheral Anaerobic Blood Culture Pending Received 03/21/17 05:45 Blood Peripheral Aerobic Blood Culture Pending Received 03/21/17 05:45 Blood Peripheral Anaerobic Blood Culture Pending Received 03/19/17 05:15 Urine Clean Catch Urine Culture - Preliminary Yeast-Id To Follow Resulted IMAGING: Abdomen Ultrasound 03/20/17 0000 Signed Impressions: Service Date/Time: March 18:32 - CONCLUSION: 1. 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 2. Less than 50%% stenosis in the superior mesenteric artery. Jase Estes MD Abdomen/Pelvis CT 03/13/17 0000 Signed Impressions: Service Date/Time: February 15:19 - CONCLUSION: 1. Moderate-sized bilateral effusions with consolidative changes. 2. Moderate hepatosplenomegaly. 3. Ascites diffusely throughout the abdomen. 4. Compared to previous the effusions have enlarged. The ascites is new. The liver and spleen are stable in size. Natalio Way MD Chest X-Ray 03/10/17 0000 Signed Impressions: Service Date/Time: Friday, March 10, 2017 12:09 - CONCLUSION: No acute disease. There is no evidence of pneumonia. Jase Estes MD PHYSICAL EXAMINATION: GENERAL: No acute distress. Awake and alert and oriented. HEAD, EYES, EARS, NOSE, THROAT: Head is atraumatic. Extraocular movements grossly intact, pupils reactive to light. No icterus. Oropharynx moist mucosa without lesions. NECK: Supple. LUNGS: Clear breath sounds. HEART: Regular S1-S2 without murmurs, rubs or gallops. ABDOMEN: Midline surgical incision appears intact. Positive bowel sounds. Tenderness on palpation of the right lower quadrant. EXTREMITIES: No clubbing, cyanosis or edema. SKIN: No rash. NEUROLOGIC: No gross focal findings. PSYCHIATRIC: Calm and cooperative. IMPRESSION: 1. Bacteremia due to staph aureus. Persistent positive blood cultures. - repeat culture pending. 2. Urinary tract infection due to staph aureus. Probably is the source. However give the persisting blood culture could have another nidus. 3. Abdominal pain of questionable etiology. 4. Fever low grade - temp better. RECOMMENDATIONS: 1. Continue Oxacillin. 2. Monitor blood culture. 3. Give fluconazole for yeast in urine. 4. Monitor clinical status. Florentino Burnette MD Mar 21, 2017 13:12
--- NOTE | 2017-03-21 13:38 | PD.CAR.PN ---
CVT Progress Note Subjective/Hospital Course: Patient seen Full consult dictated Thanks J Objective: Vital Signs Date Time Temp Pulse Resp B/P (MAP) Pulse Ox O2 Delivery O2 Flow Rate FiO2 03/21/17 12:00 98.8 114 18 130/81 (97) 100 03/21/17 08:00 98.1 93 18 159/82 (107) 100 03/21/17 05:52 18 03/21/17 05:01 99.4 93 19 148/78 (101) 98 03/21/17 00:44 99.4 93 19 148/78 (101) 98 03/20/17 21:37 17 03/20/17 20:54 98.9 99 20 150/80 (103) 100 03/20/17 16:00 98.9 100 18 124/80 (95) 100 Labs: Laboratory Tests Test 03/21/17 05:50 White Blood Count 10.2 TH/MM3 (4.0-11.0) Red Blood Count 3.42 MIL/MM3 (4.50-5.90) Hemoglobin 9.0 GM/DL (13.0-17.0) Hematocrit 28.0 % (39.0-51.0) Mean Corpuscular Volume 81.6 FL (80.0-100.0) Mean Corpuscular Hemoglobin 26.4 PG (27.0-34.0) Mean Corpuscular Hemoglobin Concent 32.3 % (32.0-36.0) Red Cell Distribution Width 17.5 % (11.6-17.2) Platelet Count 301 TH/MM3 (150-450) Mean Platelet Volume 7.9 FL (7.0-11.0) Neutrophils (%) (Auto) 69.5 % (16.0-70.0) Lymphocytes (%) (Auto) 22.2 % (9.0-44.0) Monocytes (%) (Auto) 7.1 % (0.0-8.0) Eosinophils (%) (Auto) 0.8 % (0.0-4.0) Basophils (%) (Auto) 0.4 % (0.0-2.0) Neutrophils # (Auto) 7.1 TH/MM3 (1.8-7.7) Lymphocytes # (Auto) 2.3 TH/MM3 (1.0-4.8) Monocytes # (Auto) 0.7 TH/MM3 (0-0.9) Eosinophils # (Auto) 0.1 TH/MM3 (0-0.4) Basophils # (Auto) 0.0 TH/MM3 (0-0.2) CBC Comment DIFF FINAL Differential Comment Blood Urea Nitrogen 17 MG/DL (7-18) Creatinine 0.65 MG/DL (0.60-1.30) Random Glucose 83 MG/DL (74-106) Total Protein 8.3 GM/DL (6.4-8.2) Albumin 2.3 GM/DL (3.4-5.0) Calcium Level 8.1 MG/DL (8.5-10.1) Phosphorus Level 4.2 MG/DL (2.5-4.9) Magnesium Level 1.7 MG/DL (1.5-2.5) Alkaline Phosphatase 86 U/L (45-117) Aspartate Amino Transf (AST/SGOT) 28 U/L (15-37) Alanine Aminotransferase (ALT/SGPT) 26 U/L (12-78) Total Bilirubin 0.5 MG/DL (0.2-1.0) Sodium Level 138 MEQ/L (136-145) Potassium Level 3.4 MEQ/L (3.5-5.1) Chloride Level 99 MEQ/L (98-107) Carbon Dioxide Level 31.0 MEQ/L (21.0-32.0) Anion Gap 8 MEQ/L (5-15) Estimat Glomerular Filtration Rate 123 ML/MIN (>89) Result Diagram: 03/21/17 0550 03/21/17 0550 Gwendolyn Silvestre MD Mar 21, 2017 13:38
[2017-03-21] MEDS: MORPHINE SULFATE 15 MG TAB PO PRN (14:31)
--- NOTE | 2017-03-21 15:02 | MB ---
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 HISTORY OF PRESENT ILLNESS: This 66-year-old male comes with intractable abdominal pain to the hospital, after he ran out of the Dilaudid. The patient is admitted and now he is comfortable, however consult is somewhat based on ultrasound exam which reveals about 50-60% stenosis of SMA and celiac axis. Based on the flow velocities it should be noted this is not based on the CTA or an angiogram, Question arises if this is contributing to the patient's issues. PAST MEDICAL HISTORY: Past medical history in this gentleman is quite complex. He has history of portal hypertension, variceal bleeds, poorly controlled brittle diabetes mellitus with blood sugars in the 1000 range and consistent with known acanthotic acidosis, renal failure, chest deep venous thrombosis, bladder cancer. Positive for hepatis B. PAST SURGICAL HISTORY: Surgical history is that of appendectomy. Cholecystectomy. Transurethral resection of bladder tumors Multiple orthopedic surgeries Several laminectomies Most recently removal of the terminal ileum and part of the ascending colon for necrosis of the bowel. The cultures from there were Clostridium Perfringens which was an unusual finding as well. MEDICATIONS: The medications can be found on the chart and are numerous with a long list. SOCIAL HISTORY The patient smoked till about a year ago, most of his adult life and does not drink. He is also positive hepatitis C. PHYSICAL EXAMINATION: IN GENERAL: Physical examination reveals 66-year-old male thin and normocephalic. No trauma to the head. HEAD, EYES, EARS, NOSE, AND THROAT: Pupils are equal, reactive. Extraocular muscles appear to be intact. The patient does not appeared to be icteric, sclerae are not normal. NECK: Bilateral carotid pulses. No bruits. CHEST: Decreased breath sounds breath sounds over both lung mosher. The patient has advanced COPD with pulmonary cachexia but also malnutrition. All consequently resulting in chest wall musculature atrophy. HEART: Regular rhythm. Hemodynamically the patient is stable and recent echo reveals an ejection fraction about 60 65% which is pretty surprisingly good. ABDOMEN: Soft. Active bowel sounds. Midline scar apparent the patient is extremely tender in left upper quadrant pulse in the right lower quadrant spleen is palpable about 4 inches below the costal margin midclavicular line liver is enlarged about inch and half in midclavicular line on obtuse palpation is fairly easy because the patient is then as soon as it is distracted from exam his pain is less and he stops guarding. No other masses are noted. He does not have caput medusa on his abdominal wall but the patient is fairly severe portal hypertension just looking at the CT scan and his spleen. Pelvis is stable. EXTREMITIES: The patient has proximal and distal pulses. No signs of acute vascular deficit. BACK: Back is normal. Scars from previous surgery evident. NEUROLOGIC: Neurologically grossly the patient is intact. LABORATORY FINDINGS: Laboratory and diagnostic procedures have been reviewed and these confirmed the above physical exam. The patient also has elevated ammonia level which is not unexpected. IMPRESSION/RECOMMENDATIONS I reviewed laboratory notes and procedures. 1. 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 Therefore this problem does not need to be addressed at this point or in any clinical way and risk of endovascular dilatation of the vessels would exceed any benefit from it. The previously diagnosed and then treated and necrosis of the bowel is related to infection not to ischemia. 2. This patient is a poor candidate for any type of surgery with portal hypertension and splenomegaly. Spleen enlargement can be very painful in these patients and sometimes occlusion of some of the collateral channels will cause spleen to enlarge because of the arterial inflow and impaired outflow and stretching of the capsule can cause significant amount of pain. The patient has also adhesions in the left upper quadrant from previous splenic repair so this may make it a little worse. On the other hand, trying to address this surgically would be a possible disaster and should be avoided if possible. At this point surgery should the last option for this gentleman. He needs to be managed with pain management regimen for he is at this point and addicted to narcotics. I will continue to follow patient with you. Thank you very much for the referral. I will be available if something changes. CRITICAL CARE TIME: Critical care 40 minutes. Gwendolyn Wang /1:55 PM /2:49 PM
--- NOTE | 2017-03-21 15:54 | HHI.PR ---
Subjective Remarks Late entry- patient seen earlier at 11:15 am Patient states that abdominal pain when not substantially last night. Denies fevers or chills denies nausea, vomiting or abdominal pain Patient continue to be tachycardic Objective Vitals Vital Signs Date Time Temp Pulse Resp B/P (MAP) Pulse Ox O2 Delivery O2 Flow Rate FiO2 03/21/17 12:00 98.8 114 18 130/81 (97) 100 03/21/17 08:00 98.1 93 18 159/82 (107) 100 03/21/17 05:52 18 03/21/17 05:01 99.4 93 19 148/78 (101) 98 03/21/17 00:44 99.4 93 19 148/78 (101) 98 03/20/17 21:37 17 03/20/17 20:54 98.9 99 20 150/80 (103) 100 03/20/17 16:00 98.9 100 18 124/80 (95) 100 I/O 03/20/17 03/20/17 03/20/17 03/21/17 03/21/17 03/21/17 07:00 15:00 23:00 07:00 15:00 23:00 Intake Total 1180 ml 300 ml 1020 ml 100 ml 300 ml Output Total 300 ml 1325 ml Balance 880 ml 300 ml -305 ml 100 ml 300 ml Intake Oral 480 ml 720 ml IV Total 700 ml 300 ml 300 ml 100 ml 300 ml Output Urine Total 300 ml 1325 ml # Voids 3 2 # Bowel Movements 3 Result Diagram: 03/21/17 0550 03/21/17 0550 Imaging Last Impressions Abdomen Ultrasound 03/20/17 0000 Signed Impressions: Service Date/Time: March 18:32 - CONCLUSION: 1. 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 2. Less than 50%% stenosis in the superior mesenteric artery. Jase Estes MD Abdomen/Pelvis CT 03/13/17 0000 Signed Impressions: Service Date/Time: February 15:19 - CONCLUSION: 1. Moderate-sized bilateral effusions with consolidative changes. 2. Moderate hepatosplenomegaly. 3. Ascites diffusely throughout the abdomen. 4. Compared to previous the effusions have enlarged. The ascites is new. The liver and spleen are stable in size. Natalio Way MD Chest X-Ray 03/10/17 0000 Signed Impressions: Service Date/Time: Friday, March 10, 2017 12:09 - CONCLUSION: No acute disease. There is no evidence of pneumonia. Jase Estes MD Objective Remarks AAOx3, moderate distress due to pain Clear lungs BL Abdomen very tender diffusely but tenderness more prominent on left upper quadrant and right lower quadrant. Lungs are clear but diminished auscultation bilaterally +2 Edema in lower extremities Procedures None Medications and IVs Current Medications Medications (Trade) Dose Ordered Sig/Jaya Route Start Time Stop Time Status Last Admin Sodium Chloride 1,000 ml @ 100 mls/hr Q10H IV 03/10/17 14:22 03/21/17 08:16 (NS Flush) 2 ml UNSCH PRN IV FLUSH 03/10/17 14:30 03/17/17 03:09 (NS Flush) 2 ml BID IV FLUSH 03/10/17 21:00 03/21/17 08:13 (Zofran Inj) 4 mg Q6H PRN IVP 03/10/17 14:30 03/15/17 15:00 (Lovenox Inj) 40 mg Q24H SQ 03/10/17 16:00 03/17/17 15:14 (Narcan Inj) 0.4 mg UNSCH PRN IV PUSH 03/10/17 14:30 (Duoneb Neb) 1 ampule Q2HR NEB PRN NEB 03/10/17 14:30 (Symbicort 160-4.5 Inh) 1 puff Q12HR INH 03/10/17 21:00 03/21/17 08:13 (Neurontin) 100 mg TID PO 03/10/17 18:00 03/21/17 12:15 (D50w (Vial) Inj) 50 ml UNSCH PRN IV PUSH 03/11/17 17:15 (Glucagon Inj) 1 mg UNSCH PRN OTHER 03/11/17 17:15 (Vasotec Inj) 1.25 mg Q6H PRN IV PUSH 03/11/17 17:15 (Pepcid) 20 mg BID PO 03/13/17 21:00 03/21/17 08:15 (Imodium) 2 mg Q4H PRN PO 03/14/17 10:00 03/15/17 15:08 (Theragran Hematinic) 1 tab DAILY PO 03/15/17 09:00 03/21/17 08:16 (Vitamin C) 1,000 mg DAILY PO 03/15/17 09:00 03/21/17 08:15 Patient Own Medication (Linagliptin (Tradjenta) 5 MG DAILY PO 03/17/17 10:00 Future Hold (NovoLOG SUPPLEMENTAL SCALE) 1 ACHS SLIDING SCALE SQ 03/17/17 21:00 03/21/17 12:15 (Prinivil) 40 mg DAILY PO 03/19/17 09:00 03/21/17 08:15 Oxacillin Sodium 2 gm/Sodium Chloride 100 ml @ 200 mls/hr Q4H IV 03/18/17 17:00 03/21/17 13:23 (Oramorph Sr) 30 mg Q12HR PO 03/19/17 21:00 03/21/17 08:16 (Dilaudid Pf Inj) 1 mg Q4H PRN IV PUSH 03/19/17 13:30 03/21/17 13:24 (Lasix Inj) 40 mg BID@09,18 IV PUSH 03/19/17 18:00 03/21/17 08:15 (Aldactone) 25 mg DAILY PO 03/19/17 15:00 03/21/17 08:16 (Deltasone) 10 mg DAILY PO 03/20/17 09:00 03/21/17 08:15 Albumin Human 100 ml @ 60 mls/hr Q12H IV 03/19/17 20:00 03/21/17 08:13 (Levemir Inj) 17 units BID SQ 03/21/17 09:00 03/21/17 08:16 (NovoLOG INJ) 7 units TIDAC SQ 03/21/17 08:00 03/21/17 12:14 (Diflucan) 100 mg DAILY PO 03/21/17 10:30 03/21/17 10:41 (Msir) 15 mg Q3H PRN PO 03/21/17 11:00 03/21/17 14:31 (Msir) 30 mg Q4H PRN PO 03/21/17 11:00 Urinary Catheter: No Vascular Central Line Catheter: No A/P Problem List: (1) Staphylococcus aureus bacteremia with sepsis ICD Code: A41.01 - Sepsis due to Methicillin susceptible Staphylococcus aureus Status: Acute (2) Liver cirrhosis ICD Code: K74.60 - Unspecified cirrhosis of liver (3) Uncontrolled hypertension ICD Code: I10 - Essential (primary) hypertension (4) COPD (chronic obstructive pulmonary disease) ICD Code: J44.9 - Chronic obstructive pulmonary disease, unspecified (5) Diabetes mellitus with hyperglycemia ICD Code: E11.65 - Type 2 diabetes mellitus with hyperglycemia Status: Chronic (6) Pleural effusion ICD Code: J90 - Pleural effusion, not elsewhere classified (7) Hyponatremia ICD Code: E87.1 - Hypo-osmolality and hyponatremia (8) Ascites of liver ICD Code: R18.8 - Other ascites Status: Chronic (9) Anemia ICD Code: D64.9 - Anemia, unspecified Status: Chronic (10) Anasarca ICD Code: R60.1 - Generalized edema Status: Acute (11) Abdominal pain ICD Code: R10.9 - Unspecified abdominal pain Status: Acute Assessment and Plan (1) Staphylococcus aureus bacteremia with sepsis Plan: The patient was admitted to the medical floor, treated with IV antibiotics, infectious disease consulted. Continue IV antibiotics as per infectious disease recommendations. The patient is currently on oxacillin 2 g IV every 4 hours. Case discussed with Dr. Burnette, source of bacteremia still unknown, however patient with dirty or abnormal urine. 03/21 started on Fluconazole for yeast in urine. Continue antibiotics as per ID. The patient currently on oxacillin. (2) Liver cirrhosis Abdomen and pelvis CT performed on 03/13/17 show moderate-sized bilateral pleural effusions with consolidative changes. Moderate hepatosplenomegaly. Ascites diffusely throughout the abdomen which compared to a previous CT abdomen and pelvis obtained on 03/10/17 was increased. There is a report of more prominent portal vein and interval enlargement of the spleen which measures 17.7 cm, findings consistent with increasing portal hypertension. 03/21 ultrasound-guided abdominal paracentesis was ordered on 03/19, however only an abdominal ultrasound which showed a small amount of abdominal ascites. I will reorder abdominal paracentesis for diagnostic purposes today. Continue Lasix at 40 mg IV twice a day and spironolactone, which I will increase to 100 mg by mouth daily. (3) Uncontrolled hypertension Plan: Blood pressure is elevated. Lisinopril increased previously at 2 Max dose of 40 mg by mouth daily for hypertension. I will start the patient on Cardura 2 mg by mouth daily for blood pressure control and start the patient on clonidine as needed. 03/20 Cardura was not started. Bp better. Continue lisinopril 40 mg po daily. 03/21 pressure slightly elevated. I will start Cardura 2 mg by mouth daily, continue lisinopril 4 minutes by mouth daily. (4) COPD (chronic obstructive pulmonary disease) Plan: COPD seems to be on prednisone for COPD which seems to be stable. Continue prednisone taper. (5) Diabetes mellitus with hyperglycemia Plan: Blood sugars still severely elevated with blood sugar in the 300's. I will add prandial insulin. Continue Levemir at same dose and continue to monitor blood sugars and cover with SSI with insulin Novolog. 03/21 blood sugar still seems to be severely elevated in the 300s. Insulin Levemir dose at 19 units subcutaneous twice a day, continue prandial insulin NovoLog and SSI with insulin NovoLog. Continue to monitor Accu-Cheks. Patient is currently on a regular diet which I will switch to a diabetic diet. I will consult community health educator. As hemoglobin A1c was 9.6 on 03/11/17. (6) Pleural effusion Plan: Pleural effusion likely overload and diastolic congestive heart failure secondary to liver cirrhosis. Echocardiogram done today shows a normal systolic function with an EF in the range of 55-60%. Wall thickness measure at the upper limits of normal. 03/20 Continue with diuretics. (7) Hyponatremia Plan: Suspect combination of hypervolemic hyponatremia and pseudo- hyperglycemia given uncontrolled blood sugars. Continue with Lasix and spironolactone as well as blood sugar control. 03/21 sodium continues to improve. Sodium 138 today. Continue to monitor BMP. (8) Ascites of liver Plan: With diuretics as stated above. 03/20 appreciate GI recommendations. Abdominal paracentesis ordered. CTA abdomen cannot be done due to contrast dye allergy. 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 Less than 50% stenosis. Mesenteric artery. We' ll consult vascular surgery for further recommendations. (9) Anemia Plan: Anemia seems to be chronic, hemoglobin seems to be trending down. Recent previous records reviewed on January 2017 show that the patient's hemoglobin was near normal. I will check iron studies and stool guaiac. 03/20 stool guaiac pending. Iron low, ferrtitn normal - TIBC and percent saturation not done. will order for am. (10) Anasarca Plan: Patient with increasing bilateral pleural effusions, ascites and lower extremity edema. Anasarca likely secondary to combination of liver cirrhosis and congestive heart failure. Continue with diuretics. (11) Abdominal pain Plan: Patient complains of abdominal pain especially in the left upper quadrant radiating to the right lower quadrant. Patient has had 2 [address]s on this admission as described above. Suspect abdominal pain is likely secondary from ascites and hepatosplenomegaly. 03/20 Gastroenterology recommendations appreciated. For abdominal paracentesis to r/o sbp, US abdomen ordered to r/o mesenteric ischemia. Continue pain control with Oramorph SR, Dilaudid as needed for breakthrough pain. 03/21 abdominal paracentesis reordered, however I got a call from the accounting technician stating that after radiologist reviewed the ultrasound of the abdomen today then there is no longer marked ascites to safely obtain fluid for a diagnostic paracentesis. I will also continue Oramorph SR at 30 mg by mouth twice a day, will add morphine IR for pain control and continue Dilaudid. GI Prophylaxis: Continue PPI. VT prophylaxis: Lovenox held secondary to drop in hemoglobin which could've been dilutional secondary to hypervolemia, I will resume Lovenox subcutaneous. Discharge Planning Continue to monitor in the medical floor. 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
[2017-03-21 16:00] VITALS: BP 137/75; PULSE 118; RESP 17; TEMP 98.3; O2SAT 100
[2017-03-21] MEDS: ENOXAPARIN SODIUM 40 MG/0.4 ML SYRINGE SQ SCH (16:00)
--- NOTE | 2017-03-21 16:11 | RADRPT ---
EXAM DATE/TIME: 03/21/2017 15:29 [facility] COMPARISON: US ABDOMEN - LOWER LIMITED, March 19, 2017, 14:59. INDICATIONS : Ascites. MEDICAL HISTORY : Deep venous thrombosis. Hypercholesterolemia. Hypertension. Hyperlipidemia. COPD. Pancreatitis. Arthr itis. Diabetes. Cirrhosis. Hepatitis C. Chemotherapy. Bladder cancer. Opioid dependance. SURGICAL HISTORY : Splenectomy. Appendectomy. Cholecystectomy. Tympanostomy tubes. Cardiac cath. Bowel resection. ERCP b anding. ENCOUNTER: Subsequent ACUITY: 2 days PAIN SCORE: 0/10 LOCATION: Abdomen. AREA EVALUATED: Abdomen. FINDINGS: Imaging of the abdomen and pelvis was performed to evaluate for ascites for possible paracentesis. O nly trace ascites is noted which inadequate for paracentesis. CONCLUSION: Only trace ascites which is inadequate for paracentesis. Michael Philip MD on March 21, 2017 at 16:08 Board Certified Radiologist. This report was verified electronically.
[2017-03-21] MEDS: MORPHINE SULFATE 30 MG TAB PO PRN ×2 (18:27→22:34)
[2017-03-21 19:00] VITALS: BP 135/73; PULSE 107; RESP 20; TEMP 98.7; O2SAT 100
[2017-03-22] VITALS: BP 138/74; PULSE 110; RESP 20; TEMP 99.9; O2SAT 99
[2017-03-22] MEDS: HYDROmorphone HCL PF 1 MG/ML VIAL IV PUSH PRN ×4 (01:21→18:06)
[2017-03-22] MEDS: OXACILLIN INJ 2 GM in SODIUM CHLORIDE 0.9% INJ 100 ML IV SCH ×6 (01:23→21:28)
[2017-03-22] MEDS: MORPHINE SULFATE 30 MG TAB PO PRN ×4 (02:39→16:56)
[2017-03-22 08:00] VITALS: BP 119/78; PULSE 102; RESP 17; TEMP 99.1; O2SAT 97
[2017-03-22] MEDS: INSULIN ASPART SUPPLEMENTAL SCALE SQ SCH ×4 (08:00→22:19)
[2017-03-22] MEDS: INSULIN ASPART 1,000 UNITS/10 ML VIAL SQ SCH ×3 (08:00→16:54)
[2017-03-22] MEDS: predniSONE 10 MG TAB PO SCH (08:14)
[2017-03-22] MEDS: ALBUMIN 25% INJ 100 ML IV SCH ×2 (08:14→21:27)
[2017-03-22] MEDS: POTASSIUM CHLORIDE 20 MEQ CONTROLLED RELEASE TAB PO SCH (08:14)
[2017-03-22] MEDS: LISINOPRIL 20 MG TAB PO SCH (08:14)
[2017-03-22] MEDS: GABAPENTIN 100 MG CAP PO SCH ×3 (08:14→16:54)
[2017-03-22] MEDS: MULTIVITAMIN HEMATINIC THERAPEUTIC TAB PO SCH (08:15)
[2017-03-22] MEDS: FLUCONAZOLE 100 MG TAB PO SCH (08:15)
[2017-03-22] MEDS: MORPHINE SULFATE 15 MG CONTROLLED RELEASE TAB PO SCH ×2 (08:15→21:26)
[2017-03-22] MEDS: ASCORBIC ACID 500 MG TAB PO SCH (08:15)
[2017-03-22] MEDS: FAMOTIDINE 20 MG TAB PO SCH ×2 (08:15→21:25)
[2017-03-22] MEDS: SPIRONOLACTONE 25 MG TAB PO SCH (08:15)
[2017-03-22] MEDS: FUROSEMIDE 40 MG/4 ML VIAL IV PUSH SCH ×2 (08:16→16:53)
[2017-03-22] MEDS: INSULIN DETEMIR 100 UNITS/ML VIAL SQ SCH ×2 (08:16→22:19)
[2017-03-22] MEDS: SODIUM CHLORIDE 0.9% FLUSH 10 ML FLUSH IV FLUSH SCH ×2 (08:19→21:27)
[2017-03-22] MEDS: BUDESONIDE-FORMOTEROL 160/4.5 MCG INHALER INH SCH ×2 (08:20→21:00)
[2017-03-22 12:00] VITALS: BP 132/71; PULSE 106; RESP 18; TEMP 99.2; O2SAT 100
--- NOTE | 2017-03-22 12:25 | HHI.GIFU ---
Subjective Remarks Pt seen ambulating hallways, talking with friend. No new complaints. (Isabelle Gold) Objective Vitals I&O Vital Signs Date Time Temp Pulse Resp B/P (MAP) Pulse Ox O2 Delivery O2 Flow Rate FiO2 03/22/17 08:00 99.1 102 17 119/78 (92) 97 03/22/17 00:00 99.9 110 20 138/74 (95) 99 03/21/17 19:00 98.7 107 20 135/73 (93) 100 03/21/17 16:00 98.3 118 17 137/75 (95) 100 I/O 03/21/17 03/21/17 03/21/17 03/22/17 03/22/17 03/22/17 07:00 15:00 23:00 07:00 15:00 23:00 Intake Total 100 ml 300 ml 500 ml 360 ml Output Total 800 ml 100 ml Balance 100 ml 300 ml -300 ml 260 ml Intake Oral 400 ml 360 ml IV Total 100 ml 300 ml 100 ml Output Urine Total 800 ml 100 ml # Voids 2 2 # Bowel Movements 3 Laboratory Date/Time Source Procedure Growth Status 03/21/17 05:50 Blood Peripheral Aerobic Blood Culture - Preliminary NO GROWTH IN 1 DAY Resulted 03/21/17 05:50 Blood Peripheral Anaerobic Blood Culture - Preliminary NO GROWTH IN 1 DAY Resulted 03/19/17 05:15 Urine Clean Catch Urine Culture - Final [facility] Tropicalis Complete Physical Exam HEENT: PERRL; normocephalic; atraumatic; no jaundice. CHEST: CTA CARDIAC: RRR ABDOMEN: Soft, lower quadrants distended, diffuse TTP; bowel sounds are present in all four quadrants. EXTREMITIES: No clubbing, cyanosis, + BLE edema SKIN: Normal; no rash; no jaundice. ELECTRONICS ENGINEER: No focal deficits; alert and oriented times three. (Isabelle Gold) Assessment and Plan Plan ASSESSMENT - abd pain - LUQ pain that radiates to RLQ unclear etiology. hx chronic pancreatitis. s/p bowel resection for ischemia 01/2017. Last colonoscopy 1 y ago polyps found. c diff neg. still with abd pain. started on PO pancreatic enzymes. per US does have celiac, SMA stenosis, per vasc surgery not sufficient to cause pain or require surgery and pain poss d/t splenomegaly and adhesions, poor surgical candidate. - ascites on CT - unclear etiology. admits hx hep c s/p unsuccessful drinking, liver dz. CT 03/10 suggestive portal HTN, CT 03/13 shows enlarged liver, ascites no LFT derangement, on albumin. AFP 2.9. FANNIE neg, ASMA neg, rest of liver w /u pending. plan was for diagnostic paracentesis but now insufficient fluid to remove. - anemia - HH improved - MSSA bacteremia, per primary, ID following, source unclear - anasarca - on diuretics PLAN - cont diuretics - await HCV quant & genotype - pain mgmt - await rest of liver w/u - low sodium diet - further recs to follow This pt seen by myself and Dr Mariee and this note is written on his behalf (Isabelle Gold) Physician Comments Seen and examined, plan as above. Will follow up with you . (Jason Mariee MD) Isabelle Gold Mar 22, 2017 12:25 Jason Mariee MD Mar 22, 2017 16:07
--- NOTE | 2017-03-22 13:26 | HHI.PR ---
Subjective Remarks Patient still complains of abdominal pain, denies nausea or vomiting. As per medical report, the patient has been seen ambulating in the hallway, talking with a friend. Denies fevers or chills states pain rate is the same 10 and hopes to bring it down to a 6 states is eating well Objective Vitals Vital Signs Date Time Temp Pulse Resp B/P (MAP) Pulse Ox O2 Delivery O2 Flow Rate FiO2 03/22/17 08:00 99.1 102 17 119/78 (92) 97 03/22/17 00:00 99.9 110 20 138/74 (95) 99 03/21/17 19:00 98.7 107 20 135/73 (93) 100 03/21/17 16:00 98.3 118 17 137/75 (95) 100 I/O 03/21/17 03/21/17 03/21/17 03/22/17 03/22/17 03/22/17 07:00 15:00 23:00 07:00 15:00 23:00 Intake Total 100 ml 300 ml 500 ml 360 ml Output Total 800 ml 100 ml Balance 100 ml 300 ml -300 ml 260 ml Intake Oral 400 ml 360 ml IV Total 100 ml 300 ml 100 ml Output Urine Total 800 ml 100 ml # Voids 2 2 # Bowel Movements 3 Result Diagram: 03/21/17 0550 03/21/17 0550 Imaging Last Impressions Abdomen Ultrasound 03/21/17 0000 Signed Impressions: Service Date/Time: Tuesday, March 21, 2017 15:29 - CONCLUSION: Only trace ascites which is inadequate for paracentesis. Michael Philip MD Abdomen/Pelvis CT 03/13/17 0000 Signed Impressions: Service Date/Time: February 15:19 - CONCLUSION: 1. Moderate-sized bilateral effusions with consolidative changes. 2. Moderate hepatosplenomegaly. 3. Ascites diffusely throughout the abdomen. 4. Compared to previous the effusions have enlarged. The ascites is new. The liver and spleen are stable in size. Natalio Way MD Chest X-Ray 03/10/17 0000 Signed Impressions: Service Date/Time: Friday, March 10, 2017 12:09 - CONCLUSION: No acute disease. There is no evidence of pneumonia. Jase Estes MD Objective Remarks AAOx3, moderate distress due to pain Clear lungs BL Abdomen very tender diffusely but tenderness more prominent on left upper quadrant and right lower quadrant. Lungs are clear but diminished auscultation bilaterally +2 Edema in lower extremities Procedures None Medications and IVs Current Medications Medications (Trade) Dose Ordered Sig/Jaya Route Start Time Stop Time Status Last Admin Sodium Chloride 1,000 ml @ 100 mls/hr Q10H IV 03/10/17 14:22 03/21/17 08:16 (NS Flush) 2 ml UNSCH PRN IV FLUSH 03/10/17 14:30 03/17/17 03:09 (NS Flush) 2 ml BID IV FLUSH 03/10/17 21:00 03/22/17 08:19 (Zofran Inj) 4 mg Q6H PRN IVP 03/10/17 14:30 03/15/17 15:00 (Lovenox Inj) 40 mg Q24H SQ 03/10/17 16:00 03/17/17 15:14 (Narcan Inj) 0.4 mg UNSCH PRN IV PUSH 03/10/17 14:30 (Duoneb Neb) 1 ampule Q2HR NEB PRN NEB 03/10/17 14:30 (Symbicort 160-4.5 Inh) 1 puff Q12HR INH 03/10/17 21:00 03/22/17 08:20 (Neurontin) 100 mg TID PO 03/10/17 18:00 03/22/17 12:03 (D50w (Vial) Inj) 50 ml UNSCH PRN IV PUSH 03/11/17 17:15 (Glucagon Inj) 1 mg UNSCH PRN OTHER 03/11/17 17:15 (Vasotec Inj) 1.25 mg Q6H PRN IV PUSH 03/11/17 17:15 (Pepcid) 20 mg BID PO 03/13/17 21:00 03/22/17 08:15 (Imodium) 2 mg Q4H PRN PO 03/14/17 10:00 03/15/17 15:08 (Theragran Hematinic) 1 tab DAILY PO 03/15/17 09:00 03/22/17 08:15 (Vitamin C) 1,000 mg DAILY PO 03/15/17 09:00 03/22/17 08:15 Patient Own Medication (Linagliptin (Tradjenta) 5 MG DAILY PO 03/17/17 10:00 Future Hold (NovoLOG SUPPLEMENTAL SCALE) 1 ACHS SLIDING SCALE SQ 03/17/17 21:00 03/22/17 08:00 (Prinivil) 40 mg DAILY PO 03/19/17 09:00 03/22/17 08:14 Oxacillin Sodium 2 gm/Sodium Chloride 100 ml @ 200 mls/hr Q4H IV 03/18/17 17:00 03/22/17 12:03 (Oramorph Sr) 30 mg Q12HR PO 03/19/17 21:00 03/22/17 08:15 (Dilaudid Pf Inj) 1 mg Q4H PRN IV PUSH 03/19/17 13:30 03/22/17 12:02 (Lasix Inj) 40 mg BID@09,18 IV PUSH 03/19/17 18:00 03/22/17 08:16 (Aldactone) 25 mg DAILY PO 03/19/17 15:00 03/22/17 08:15 (Deltasone) 10 mg DAILY PO 03/20/17 09:00 03/22/17 08:14 Albumin Human 100 ml @ 60 mls/hr Q12H IV 03/19/17 20:00 03/22/17 08:14 (Levemir Inj) 17 units BID SQ 03/21/17 09:00 03/22/17 08:16 (NovoLOG INJ) 7 units TIDAC SQ 03/21/17 08:00 03/22/17 12:00 (Diflucan) 100 mg DAILY PO 03/21/17 10:30 03/22/17 08:15 (Msir) 15 mg Q3H PRN PO 03/21/17 11:00 03/21/17 14:31 (Msir) 30 mg Q4H PRN PO 03/21/17 11:00 03/22/17 09:02 (KCl) 20 meq DAILY PO 03/22/17 09:00 03/22/17 08:14 Urinary Catheter: No Vascular Central Line Catheter: No A/P Problem List: (1) Staphylococcus aureus bacteremia with sepsis ICD Code: A41.01 - Sepsis due to Methicillin susceptible Staphylococcus aureus Status: Acute (2) Liver cirrhosis ICD Code: K74.60 - Unspecified cirrhosis of liver (3) Uncontrolled hypertension ICD Code: I10 - Essential (primary) hypertension (4) COPD (chronic obstructive pulmonary disease) ICD Code: J44.9 - Chronic obstructive pulmonary disease, unspecified (5) Diabetes mellitus with hyperglycemia ICD Code: E11.65 - Type 2 diabetes mellitus with hyperglycemia Status: Chronic (6) Pleural effusion ICD Code: J90 - Pleural effusion, not elsewhere classified (7) Hyponatremia ICD Code: E87.1 - Hypo-osmolality and hyponatremia (8) Ascites of liver ICD Code: R18.8 - Other ascites Status: Chronic (9) Anemia ICD Code: D64.9 - Anemia, unspecified Status: Chronic (10) Anasarca ICD Code: R60.1 - Generalized edema Status: Acute (11) Abdominal pain ICD Code: R10.9 - Unspecified abdominal pain Status: Acute Assessment and Plan (1) Staphylococcus aureus bacteremia with sepsis Plan: The patient was admitted to the medical floor, treated with IV antibiotics, infectious disease consulted. Continue IV antibiotics as per infectious disease recommendations. The patient is currently on oxacillin 2 g IV every 4 hours. Case discussed with Dr. Burnette, source of bacteremia still unknown, however patient with dirty or abnormal urine. 03/21 started on Fluconazole for yeast in urine. Continue antibiotics as per ID. The patient currently on oxacillin. 03/22 continue antibiotics as per ID. Last set obtained on was negative 5. Repeat blood culture obtained on 03/21 is negative 1. Patient has had a MAXIMUM TEMPERATURE of 99.9 last night. (2) Liver cirrhosis Abdomen and pelvis CT performed on 03/13/17 show moderate-sized bilateral pleural effusions with consolidative changes. Moderate hepatosplenomegaly. Ascites diffusely throughout the abdomen which compared to a previous CT abdomen and pelvis obtained on 03/10/17 was increased. There is a report of more prominent portal vein and interval enlargement of the spleen which measures 17.7 cm, findings consistent with increasing portal hypertension. 03/22 Ultrasound-guided abdominal paracentesis was ordered, however there is not enough fluid for the procedure to be done. Continue treatment with diuretics with Lasix 40 mg IV twice a day and spironolactone 100 mg by mouth daily. (3) Uncontrolled hypertension Plan: Blood pressure is elevated. Lisinopril increased previously at 2 Max dose of 40 mg by mouth daily for hypertension. I will start the patient on Cardura 2 mg by mouth daily for blood pressure control and start the patient on clonidine as needed. 03/22 BP stable. Continue to monitor bp. The patient is currently on lisinopril 40 mg by mouth daily. There has not been relieved to start the patient on Cardura or other antihypertensive medications. (4) COPD (chronic obstructive pulmonary disease) Plan: COPD seems to be on prednisone for COPD which seems to be stable. Continue prednisone taper. (5) Diabetes mellitus with hyperglycemia Plan: Blood sugars still severely elevated with blood sugar in the 300's. I will add prandial insulin. Continue Levemir at same dose and continue to monitor blood sugars and cover with SSI with insulin Novolog. 03/21 blood sugar still seems to be severely elevated in the 300s. Insulin Levemir dose at 19 units subcutaneous twice a day, continue prandial insulin NovoLog and SSI with insulin NovoLog. Continue to monitor Accu-Cheks. Patient is currently on a regular diet which I will switch to a diabetic diet. I will consult plug overwrap machine tender. As hemoglobin A1c was 9.6 on 03/11/17. 03/22 blood sugars with much improved control today. Continue insulin regimen as above. (6) Pleural effusion Plan: Pleural effusion likely overload and diastolic congestive heart failure secondary to liver cirrhosis. Echocardiogram done today shows a normal systolic function with an EF in the range of 55-60%. Wall thickness measure at the upper limits of normal. 03/20 Continue with diuretics. (7) Hyponatremia Plan: Suspect combination of hypervolemic hyponatremia and pseudo- hyperglycemia given uncontrolled blood sugars. Continue with Lasix and spironolactone as well as blood sugar control. 03/21 sodium continues to improve. Sodium 138 today. Continue to monitor BMP. (8) Ascites of liver Plan: With diuretics as stated above. 03/20 appreciate GI recommendations. Abdominal paracentesis ordered. CTA abdomen cannot be done due to contrast dye allergy. 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 Less than 50% stenosis. Mesenteric artery. 03/22 vascular surgery recommendations appreciated. Discussed the case with Dr. Gurrola states that abdominal pain is not coming from this finding. Recommended outpatient treatment with pain supervisor network control operators. (9) Anemia Plan: Anemia seems to be chronic, hemoglobin seems to be trending down. Recent previous records reviewed on January 2017 show that the patient's hemoglobin was near normal. I will check iron studies and stool guaiac. 03/20 stool guaiac pending. Iron low, ferrtitn normal - TIBC and percent saturation not done. will order for am. (10) Anasarca Plan: Patient with increasing bilateral pleural effusions, ascites and lower extremity edema. Anasarca likely secondary to combination of liver cirrhosis and congestive heart failure. Continue with diuretics. (11) Abdominal pain Plan: Patient complains of abdominal pain especially in the left upper quadrant radiating to the right lower quadrant. Patient has had 2 abdominal [address]s on this admission as described above. Suspect abdominal pain is likely secondary from ascites and hepatosplenomegaly. 03/20 Gastroenterology recommendations appreciated. For abdominal paracentesis to r/o sbp, US abdomen ordered to r/o mesenteric ischemia. Continue pain control with Oramorph SR, Dilaudid as needed for breakthrough pain. 03/21 abdominal paracentesis reordered, however I got a call from the certified medical technician assistant stating that after radiologist reviewed the ultrasound of the abdomen today then there is no longer marked ascites to safely obtain fluid for a diagnostic paracentesis. I will also continue Oramorph SR at 30 mg by mouth twice a day, will add morphine IR for pain control and continue Dilaudid. 03/22 the patient states that his pain still very uncontrolled I will increase the dose of Oramorph SR, continue morphine IR for pain control and continue Dilaudid IV for breakthrough pain. GI Prophylaxis: Continue PPI. VT prophylaxis: Lovenox held secondary to drop in hemoglobin which could've been dilutional secondary to hypervolemia, I will resume Lovenox subcutaneous. Discharge Planning Continue to monitor in the medical floor. Problem Qualifiers (1) COPD (chronic obstructive pulmonary disease): Qualified Codes: J42 - Unspecified chronic bronchitis (2) Diabetes mellitus with hyperglycemia: Qualified Codes: E11.65 - Type 2 diabetes mellitus with hyperglycemia; Z79.4 - [facility] (current) use of insulin (3) Anemia: Qualified Codes: D64.9 - Anemia, unspecified David Braswell MD Mar 22, 2017 13:26
[2017-03-22] MEDS: SODIUM CHLOR 0.9% 1000 ML INJ 1,000 ML IV SCH (15:18)
[2017-03-22 16:00] VITALS: BP 111/71; PULSE 101; RESP 18; TEMP 99.4; O2SAT 98
[2017-03-22] MEDS: ENOXAPARIN SODIUM 40 MG/0.4 ML SYRINGE SQ SCH (16:53)
[2017-03-22 17:51] LABS: HCV RNA PCR IU/ML LESS THAN 15 IU/mL (0-14); HCV RNA PCR LOGIU/ML LESS THAN 1.18 (0-1.18)
[2017-03-22 20:00] VITALS: BP 112/67; PULSE 113; RESP 20; TEMP 100.2; O2SAT 99
[2017-03-23] VITALS: BP 100/60; PULSE 115; RESP 20; TEMP 99.9; O2SAT 100
[2017-03-23] MEDS: MORPHINE SULFATE 15 MG TAB PO PRN ×3 (00:13→23:12)
[2017-03-23] MEDS: OXACILLIN INJ 2 GM in SODIUM CHLORIDE 0.9% INJ 100 ML IV SCH ×6 (00:14→21:18)
[2017-03-23] MEDS: SODIUM CHLOR 0.9% 1000 ML INJ 1,000 ML IV SCH ×3 (00:17→21:22)
[2017-03-23 01:16] LABS: INTERNATIONAL NORMALIZED RATIO 1.1 RATIO; PROTHROMBIN TIME - PATIENT 12.2 SEC (9.8-11.6)
[2017-03-23] MEDS: LISINOPRIL 20 MG TAB PO SCH (07:33)
[2017-03-23] MEDS: predniSONE 10 MG TAB PO SCH (07:33)
[2017-03-23] MEDS: FAMOTIDINE 20 MG TAB PO SCH ×2 (07:33→21:18)
[2017-03-23] MEDS: ALBUMIN 25% INJ 100 ML IV SCH ×2 (07:33→21:21)
[2017-03-23] MEDS: SPIRONOLACTONE 25 MG TAB PO SCH (07:34)
[2017-03-23] MEDS: MULTIVITAMIN HEMATINIC THERAPEUTIC TAB PO SCH (07:34)
[2017-03-23] MEDS: GABAPENTIN 100 MG CAP PO SCH ×3 (07:34→16:38)
[2017-03-23] MEDS: FLUCONAZOLE 100 MG TAB PO SCH (07:34)
[2017-03-23] MEDS: POTASSIUM CHLORIDE 20 MEQ CONTROLLED RELEASE TAB PO SCH (07:34)
[2017-03-23] MEDS: ASCORBIC ACID 500 MG TAB PO SCH (07:35)
[2017-03-23] MEDS: FUROSEMIDE 40 MG/4 ML VIAL IV PUSH SCH ×2 (07:35→16:37)
[2017-03-23] MEDS: MORPHINE SULFATE 15 MG CONTROLLED RELEASE TAB PO SCH ×2 (07:41→21:18)
[2017-03-23] MEDS: BUDESONIDE-FORMOTEROL 160/4.5 MCG INHALER INH SCH ×2 (07:42→21:00)
[2017-03-23] MEDS: INSULIN ASPART SUPPLEMENTAL SCALE SQ SCH ×4 (07:42→22:28)
[2017-03-23] MEDS: SODIUM CHLORIDE 0.9% FLUSH 10 ML FLUSH IV FLUSH SCH ×2 (07:45→21:18)
[2017-03-23] MEDS: INSULIN ASPART 1,000 UNITS/10 ML VIAL SQ SCH ×3 (07:45→16:40)
[2017-03-23] MEDS: INSULIN DETEMIR 100 UNITS/ML VIAL SQ SCH ×2 (07:50→22:28)
[2017-03-23 08:00] VITALS: BP 140/75; PULSE 88; RESP 18; TEMP 96.3; O2SAT 100
--- NOTE | 2017-03-23 10:59 | HHI.PR ---
Subjective Remarks c/o left testicular pain and chills. Patient still c/o abdominal pain denies nausea ort vomiting Objective Vitals Vital Signs Date Time Temp Pulse Resp B/P (MAP) Pulse Ox O2 Delivery O2 Flow Rate FiO2 03/23/17 08:00 96.3 88 18 140/75 (96) 100 03/23/17 00:00 99.9 115 20 100/60 (73) 100 03/22/17 20:00 100.2 113 20 112/67 (82) 99 03/22/17 16:00 99.4 101 18 111/71 (84) 98 03/22/17 12:00 99.2 106 18 132/71 (91) 100 I/O 03/22/17 03/22/17 03/22/17 03/23/17 03/23/17 03/23/17 07:00 15:00 23:00 07:00 15:00 23:00 Intake Total 360 ml 1100 ml 100 ml Output Total 100 ml 550 ml Balance 260 ml 550 ml 100 ml Intake Oral 360 ml 600 ml IV Total 500 ml 100 ml Output Urine Total 100 ml 550 ml # Voids 2 # Bowel Movements 3 Result Diagram: 03/21/17 0550 03/21/17 0550 Objective Remarks AAOx3, moderate distress due to pain Clear lungs BL Abdomen very tender diffusely but tenderness more prominent on left upper quadrant and right lower quadrant. Lungs are clear but diminished auscultation bilaterally +2 Edema in lower extremities Procedures None Medications and IVs Current Medications Medications (Trade) Dose Ordered Sig/Jaya Route Start Time Stop Time Status Last Admin Sodium Chloride 1,000 ml @ 100 mls/hr Q10H IV 03/10/17 14:22 03/23/17 00:17 (NS Flush) 2 ml UNSCH PRN IV FLUSH 03/10/17 14:30 03/17/17 03:09 (NS Flush) 2 ml BID IV FLUSH 03/10/17 21:00 03/23/17 07:45 (Zofran Inj) 4 mg Q6H PRN IVP 03/10/17 14:30 03/15/17 15:00 (Lovenox Inj) 40 mg Q24H SQ 03/10/17 16:00 03/22/17 16:53 (Narcan Inj) 0.4 mg UNSCH PRN IV PUSH 03/10/17 14:30 (Duoneb Neb) 1 ampule Q2HR NEB PRN NEB 03/10/17 14:30 (Symbicort 160-4.5 Inh) 1 puff Q12HR INH 03/10/17 21:00 03/23/17 07:42 (Neurontin) 100 mg TID PO 03/10/17 18:00 03/23/17 07:34 (D50w (Vial) Inj) 50 ml UNSCH PRN IV PUSH 03/11/17 17:15 (Glucagon Inj) 1 mg UNSCH PRN OTHER 03/11/17 17:15 (Vasotec Inj) 1.25 mg Q6H PRN IV PUSH 03/11/17 17:15 (Pepcid) 20 mg BID PO 03/13/17 21:00 03/23/17 07:33 (Imodium) 2 mg Q4H PRN PO 03/14/17 10:00 03/15/17 15:08 (Theragran Hematinic) 1 tab DAILY PO 03/15/17 09:00 03/23/17 07:34 (Vitamin C) 1,000 mg DAILY PO 03/15/17 09:00 03/23/17 07:35 Patient Own Medication (Linagliptin (Tradjenta) 5 MG DAILY PO 03/17/17 10:00 Future Hold (NovoLOG SUPPLEMENTAL SCALE) 1 ACHS SLIDING SCALE SQ 03/17/17 21:00 03/22/17 22:19 (Prinivil) 40 mg DAILY PO 03/19/17 09:00 03/23/17 07:33 Oxacillin Sodium 2 gm/Sodium Chloride 100 ml @ 200 mls/hr Q4H IV 03/18/17 17:00 03/23/17 07:50 (Dilaudid Pf Inj) 1 mg Q4H PRN IV PUSH 03/19/17 13:30 03/22/17 18:06 (Lasix Inj) 40 mg BID@09,18 IV PUSH 03/19/17 18:00 03/23/17 07:35 (Aldactone) 25 mg DAILY PO 03/19/17 15:00 03/23/17 07:34 (Deltasone) 10 mg DAILY PO 03/20/17 09:00 03/23/17 07:33 Albumin Human 100 ml @ 60 mls/hr Q12H IV 03/19/17 20:00 03/23/17 07:33 (Levemir Inj) 17 units BID SQ 03/21/17 09:00 03/23/17 07:50 (NovoLOG INJ) 7 units TIDAC SQ 03/21/17 08:00 03/22/17 16:54 (Diflucan) 100 mg DAILY PO 03/21/17 10:30 03/23/17 07:34 (Msir) 15 mg Q3H PRN PO 03/21/17 11:00 03/23/17 07:34 (Msir) 30 mg Q4H PRN PO 03/21/17 11:00 03/22/17 16:56 (KCl) 20 meq DAILY PO 03/22/17 09:00 03/23/17 07:34 (Oramorph Sr) 45 mg Q12HR PO 03/22/17 21:00 03/23/17 07:41 A/P Problem List: (1) Staphylococcus aureus bacteremia with sepsis ICD Code: A41.01 - Sepsis due to Methicillin susceptible Staphylococcus aureus Status: Acute (2) Liver cirrhosis ICD Code: K74.60 - Unspecified cirrhosis of liver (3) Uncontrolled hypertension ICD Code: I10 - Essential (primary) hypertension (4) COPD (chronic obstructive pulmonary disease) ICD Code: J44.9 - Chronic obstructive pulmonary disease, unspecified (5) Diabetes mellitus with hyperglycemia ICD Code: E11.65 - Type 2 diabetes mellitus with hyperglycemia Status: Chronic (6) Pleural effusion ICD Code: J90 - Pleural effusion, not elsewhere classified (7) Hyponatremia ICD Code: E87.1 - Hypo-osmolality and hyponatremia (8) Ascites of liver ICD Code: R18.8 - Other ascites Status: Chronic (9) Anemia ICD Code: D64.9 - Anemia, unspecified Status: Chronic (10) Anasarca ICD Code: R60.1 - Generalized edema Status: Acute (11) Abdominal pain ICD Code: R10.9 - Unspecified abdominal pain Status: Acute (12) Testicular pain, left ICD Code: N50.812 - Left testicular pain Plan: Check testicular ultrasound. Assessment and Plan (1) Staphylococcus aureus bacteremia with sepsis Plan: The patient was admitted to the medical floor, treated with IV antibiotics, infectious disease consulted. Continue IV antibiotics as per infectious disease recommendations. The patient is currently on oxacillin 2 g IV every 4 hours. Case discussed with Dr. Burnette, source of bacteremia still unknown, however patient with dirty or abnormal urine. 03/21 started on Fluconazole for yeast in urine. Continue antibiotics as per ID. The patient currently on oxacillin. 03/23 continue antibiotics as per ID. Last set obtained on was negative 5. Repeat blood culture obtained on 03/21 is negative 2. Patient has had a MAXIMUM TEMPERATURE of 100.2 last night. (2) Liver cirrhosis Abdomen and pelvis CT performed on 03/13/17 show moderate-sized bilateral pleural effusions with consolidative changes. Moderate hepatosplenomegaly. Ascites diffusely throughout the abdomen which compared to a previous CT abdomen and pelvis obtained on 03/10/17 was increased. There is a report of more prominent portal vein and interval enlargement of the spleen which measures 17.7 cm, findings consistent with increasing portal hypertension. Ultrasound-guided abdominal paracentesis was ordered, however there is not enough fluid for the procedure to be done. Continue treatment with diuretics with Lasix 40 mg IV twice a day and spironolactone 100 mg by mouth daily. (3) Uncontrolled hypertension Plan: Blood pressure is elevated. Lisinopril increased previously at 2 Max dose of 40 mg by mouth daily for hypertension. I will start the patient on Cardura 2 mg by mouth daily for blood pressure control and start the patient on clonidine as needed. BP stable. Continue to monitor bp. The patient is currently on lisinopril 40 mg by mouth daily. There has not been relieved to start the patient on Cardura or other antihypertensive medications. (4) COPD (chronic obstructive pulmonary disease) Plan: COPD seems to be on prednisone for COPD which seems to be stable. Continue prednisone taper. (5) Diabetes mellitus with hyperglycemia Plan: Blood sugars are still labile. Continue basal bolus therapy with insulin Levemir and prandial insulin NovoLog. Place on diabetic diet and high NovoLog insulin scale. Continue to monitor Accu-Cheks. (6) Pleural effusion Plan: Pleural effusion likely overload and diastolic congestive heart failure secondary to liver cirrhosis. Echocardiogram done today shows a normal systolic function with an EF in the range of 55-60%. Wall thickness measure at the upper limits of normal. Continue with diuretics. (7) Hyponatremia Plan: Suspect combination of hypervolemic hyponatremia and pseudo- hyperglycemia given uncontrolled blood sugars. Continue with Lasix and spironolactone as well as blood sugar control. 03/21 sodium continues to improve. Sodium 138 today. Continue to monitor BMP. (8) Ascites of liver Plan: With diuretics as stated above. 03/20 appreciate GI recommendations. Abdominal paracentesis ordered. CTA abdomen cannot be done due to contrast dye allergy. 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 Less than 50% stenosis. Mesenteric artery. 03/22 vascular surgery recommendations appreciated. Discussed the case with Dr. Gurrola states that abdominal pain is not coming from this finding. Recommended outpatient treatment with pain unit control clerk. (9) Anemia Plan: Anemia seems to be chronic, hemoglobin seems to be trending down. Recent previous records reviewed on January 2017 show that the patient's hemoglobin was near normal. I will check iron studies and stool guaiac. 03/20 stool guaiac pending. Iron low, ferrtitn normal - TIBC and percent saturation not done. will order for am. 03/22 stool guaiac still not done. (10) Anasarca Plan: Patient with increasing bilateral pleural effusions, ascites and lower extremity edema. Anasarca likely secondary to combination of liver cirrhosis and congestive heart failure. Continue with diuretics. (11) Abdominal pain Plan: Patient complains of abdominal pain especially in the left upper quadrant radiating to the right lower quadrant. Patient has had 2 abdominal CTs on this admission as described above. Suspect abdominal pain is likely secondary from ascites and hepatosplenomegaly. 03/20 Gastroenterology recommendations appreciated. For abdominal paracentesis to r/o sbp, US abdomen ordered to r/o mesenteric ischemia. Continue pain control with Oramorph SR, Dilaudid as needed for breakthrough pain. 03/21 abdominal paracentesis reordered, however I got a call from the telemetry technician stating that after radiologist reviewed the ultrasound of the abdomen today then there is no longer marked ascites to safely obtain fluid for a diagnostic paracentesis. I will also continue Oramorph SR at 30 mg by mouth twice a day, will add morphine IR for pain control and continue Dilaudid. 03/22 the patient states that his pain still very uncontrolled I will increase the dose of Oramorph SR, continue morphine IR for pain control and continue Dilaudid IV for breakthrough pain. 05/23 pain better controlled. Continue Oramorph SR 45 mg subcutaneous twice a day with morphine IR and Dilaudid for breakthrough pain. GI Prophylaxis: Continue PPI. VT prophylaxis: Lovenox held secondary to drop in hemoglobin which could've been dilutional secondary to hypervolemia, I will resume Lovenox subcutaneous. Discharge Planning Continue to monitor in the medical floor. Problem Qualifiers (1) COPD (chronic obstructive pulmonary disease): Qualified Codes: J42 - Unspecified chronic bronchitis (2) Diabetes mellitus with hyperglycemia: Qualified Codes: E11.65 - Type 2 diabetes mellitus with hyperglycemia; Z79.4 - [facility] use of [facility] (3) Anemia: Qualified Codes: D64.9 - Anemia, unspecified David Braswell MD Mar 23, 2017 10:59
[2017-03-23] MEDS: MORPHINE SULFATE 30 MG TAB PO PRN ×2 (11:27→16:38)
[2017-03-23 11:53] LABS: HEPATITIS C RNA GENOTYPE NOT DETECTED (NOT DETECTD)
[2017-03-23 12:00] VITALS: BP 111/68; PULSE 106; RESP 17; TEMP 99.1; O2SAT 99
--- NOTE | 2017-03-23 13:04 | RADRPT ---
EXAM DATE/TIME: 03/23/2017 12:04 [facility] COMPARISON: No previous studies available for comparison. INDICATIONS : Left testicular pain. MEDICAL HISTORY : Deep venous thrombosis. Hypercholesterolemia. Hypertension. Hyperlipidemia. COPD. Pancreatitis. Arthr itis. Diabetes. Cirrhosis. Hepatitis C. Chemotherapy. Bladder cancer. Opioid dependance. SURGICAL HISTORY : Splenectomy. Appendectomy. Cholecystectomy. Tympanostomy tubes. Cardiac cath. Bowel resection. ERCP b anding. ENCOUNTER: Initial ACUITY: 1 day PAIN SCORE: 8/10 LOCATION: Bilateral testicle. MEASUREMENTS: RIGHT TESTICLE: 2.5 x 1.8 x 1.9cm LEFT TESTICLE: 2.0 x 2.2 x 1.2cm FINDINGS: RIGHT TESTICLE: Heterogeneous and atrophic without a focal mass. Blood flow is symmetric and within normal limits. No hydrocele or varicocele. Epididymis is within normal limits. LEFT TESTICLE: Heterogeneous and atrophic without a focal mass. Blood flow is symmetric and within normal limits. No hydrocele or varicocele. Epididymis is within normal limits. SCROTUM: Within normal limits. CONCLUSION: Bilateral testicular atrophy. No torsion, inflammatory changes or other acute abnormality seen. Vishal Cevallos MD on March 23, 2017 at 13:01 Board Certified Radiologist. This report was verified electronically.
--- NOTE | 2017-03-23 13:40 | HHI.GIFU ---
Subjective Remarks Patient ambulating in hallways. No complaints today. (Chana Olivares) Objective Vitals I&O Vital Signs Date Time Temp Pulse Resp B/P (MAP) Pulse Ox O2 Delivery O2 Flow Rate FiO2 03/23/17 12:00 99.1 106 17 111/68 (82) 99 03/23/17 08:00 96.3 88 18 140/75 (96) 100 03/23/17 00:00 99.9 115 20 100/60 (73) 100 03/22/17 20:00 100.2 113 20 112/67 (82) 99 03/22/17 16:00 99.4 101 18 111/71 (84) 98 I/O 03/22/17 03/22/17 03/22/17 03/23/17 03/23/17 03/23/17 07:00 15:00 23:00 07:00 15:00 23:00 Intake Total 360 ml 1100 ml 100 ml Output Total 100 ml 550 ml Balance 260 ml 550 ml 100 ml Intake Oral 360 ml 600 ml IV Total 500 ml 100 ml Output Urine Total 100 ml 550 ml # Voids 2 # Bowel Movements 3 Laboratory Laboratory Tests Test 03/23/17 00:42 Prothrombin Time 12.2 Prothromb Time International Ratio 1.1 Activated Partial Thromboplast Time 32.0 Date/Time Source Procedure Growth Status 03/21/17 05:50 Blood Peripheral Aerobic Blood Culture - Preliminary NO GROWTH IN 2 DAYS Resulted 03/21/17 05:50 Blood Peripheral Anaerobic Blood Culture - Preliminary NO GROWTH IN 2 DAYS Resulted 03/19/17 05:15 Urine Clean Catch Urine Culture - Final Chiara Tropicalis Complete Imaging Last Impressions Scrotum Ultrasound 03/23/17 0000 Signed Impressions: Service Date/Time: Thursday, March 23, 2017 12:04 - CONCLUSION: Bilateral testicular atrophy. No torsion, inflammatory changes or other acute abnormality seen. Vishal Cevallos MD Abdomen Ultrasound 03/21/17 0000 Signed Impressions: Service Date/Time: Tuesday, March 21, 2017 15:29 - CONCLUSION: Only trace ascites which is inadequate for paracentesis. Michael Philip MD Abdomen/Pelvis CT 03/13/17 0000 Signed Impressions: Service Date/Time: February 15:19 - CONCLUSION: 1. Moderate-sized bilateral effusions with consolidative changes. 2. Moderate hepatosplenomegaly. 3. Ascites diffusely throughout the abdomen. 4. Compared to previous the effusions have enlarged. The ascites is new. The liver and spleen are stable in size. Natalio Way MD Chest X-Ray 03/10/17 0000 Signed Impressions: Service Date/Time: Friday, March 10, 2017 12:09 - CONCLUSION: No acute disease. There is no evidence of pneumonia. Jase Estes MD Physical Exam HEENT: Normocephalic; atraumatic; no jaundice. CHEST: CTA, diminished. CARDIAC: RRR ABDOMEN: Soft. Diffuse TTP. EXTREMITIES: No clubbing, cyanosis, + 2 edema in BLE. SKIN: Normal; no rash; no jaundice. 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 (Chana Olivares) Assessment and Plan Plan ASSESSMENT: - Abdominal pain - LUQ pain that radiates to RLQ, unclear etiology. History of chronic pancreatitis. S/P bowel resection for ischemia 01/2017. Last colonoscopy 1 y ago polyps found. C diff neg. Patient continues to have abdominal pain. Was started on PO pancreatic enzymes. 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 - Liver Cirrhosis. Ascites on CT, unclear etiology. Patient admits history of Hep C. CT Abdomen 03/10--suggestive of portal HTN, CT Abdomen 03/13--showed enlarged liver, ascites no LFT derangement, on albumin. Plan was for diagnostic paracentesis but now insufficient fluid to remove. AFP 2.9. FANNIE neg, ASMA neg. AMA pending. Alpha 1 Antitrypsin 216. Ceruloplasmin 24. Hepatitis Bs Antigen positive. Rest of Hep B labs pending. Hep C negative. - Anemia - HH improved. 02/13. - MSSA bacteremia, per primary, ID following, source unclear - Anasarca - on diuretics PLAN: - Continue diuretics - Await AMA - Await rest of Hep B labs - Low sodium diet - Supportive care - Further recommendations to follow based on results of above Patient seen and examined by Dr. Mariee and myself and this note is written on his behalf. (Chana Olivares) Physician Comments Seen and examined, plan as above. Further recommendations to follow. (Jason Mariee MD) Chana Olivares Mar 23, 2017 13:40 Jason Mariee MD Mar 23, 2017 15:07
[2017-03-23 15:20] LABS: HEMATOCRIT 23.6 % (39.0-51.0); MEAN CELL VOLUME 82.3 FL (80.0-100.0); MEAN CORPUSCULAR HEMOGLOBIN 26.3 PG (27.0-34.0); MEAN CORPUSCULAR HGB CONC 31.9 % (32.0-36.0); PLATELET COUNT 223 TH/MM3 (150-450); RED BLOOD COUNT 2.86 MIL/MM3 (4.50-5.90); RED CELL DISTRIBUTION WIDTH 17.5 % (11.6-17.2); REVIEW FLAG FINAL; WHITE BLOOD COUNT 9.2 TH/MM3 (4.0-11.0)
[2017-03-23 15:40] LABS: BICARBONATE 29.6 MEQ/L (21.0-32.0); POTASSIUM 3.8 MEQ/L (3.5-5.1)
[2017-03-23 16:00] VITALS: BP 120/71; PULSE 108; RESP 17; TEMP 98; O2SAT 98
[2017-03-23] MEDS: ENOXAPARIN SODIUM 40 MG/0.4 ML SYRINGE SQ SCH (16:38)
[2017-03-23 20:00] VITALS: BP 117/65; PULSE 115; RESP 20; TEMP 100.1; O2SAT 98
[2017-03-24] VITALS: BP 106/62; PULSE 101; RESP 20; TEMP 99.4; O2SAT 97
[2017-03-24] MEDS: OXACILLIN INJ 2 GM in SODIUM CHLORIDE 0.9% INJ 100 ML IV SCH ×6 (00:20→20:37)
[2017-03-24] MEDS: MORPHINE SULFATE 15 MG TAB PO PRN (04:33)
[2017-03-24 08:00] VITALS: BP 128/75; PULSE 96; RESP 16; TEMP 98.8; O2SAT 100
[2017-03-24] MEDS: INSULIN ASPART SUPPLEMENTAL SCALE SQ SCH ×4 (08:00→20:49)
[2017-03-24] MEDS: SODIUM CHLOR 0.9% 1000 ML INJ 1,000 ML IV SCH (08:22)
[2017-03-24] MEDS: BUDESONIDE-FORMOTEROL 160/4.5 MCG INHALER INH SCH ×2 (09:00→20:36)
[2017-03-24] MEDS: LISINOPRIL 20 MG TAB PO SCH (09:02)
[2017-03-24] MEDS: POTASSIUM CHLORIDE 20 MEQ CONTROLLED RELEASE TAB PO SCH (09:02)
[2017-03-24] MEDS: FLUCONAZOLE 100 MG TAB PO SCH (09:02)
[2017-03-24] MEDS: MULTIVITAMIN HEMATINIC THERAPEUTIC TAB PO SCH (09:02)
[2017-03-24] MEDS: ASCORBIC ACID 500 MG TAB PO SCH (09:02)
[2017-03-24] MEDS: SPIRONOLACTONE 25 MG TAB PO SCH (09:02)
[2017-03-24] MEDS: MORPHINE SULFATE 15 MG CONTROLLED RELEASE TAB PO SCH ×2 (09:02→20:37)
[2017-03-24] MEDS: GABAPENTIN 300 MG CAP PO SCH ×3 (09:02→18:06)
[2017-03-24] MEDS: FAMOTIDINE 20 MG TAB PO SCH ×2 (09:02→20:37)
[2017-03-24] MEDS: FUROSEMIDE 40 MG/4 ML VIAL IV PUSH SCH ×2 (09:03→18:05)
[2017-03-24] MEDS: ALBUMIN 25% INJ 100 ML IV SCH ×2 (09:12→20:35)
[2017-03-24] MEDS: INSULIN ASPART 1,000 UNITS/10 ML VIAL SQ SCH ×3 (09:15→18:05)
[2017-03-24] MEDS: INSULIN DETEMIR 100 UNITS/ML VIAL SQ SCH ×2 (09:15→21:00)
[2017-03-24] MEDS: SODIUM CHLORIDE 0.9% FLUSH 10 ML FLUSH IV FLUSH SCH ×2 (09:16→20:37)
[2017-03-24] MEDS: MORPHINE SULFATE 30 MG TAB PO PRN ×4 (10:25→23:52)
[2017-03-24 10:43] LABS: BASOPHIL % 0.6 % (0.0-2.0); EOSINOPHIL # 0.1 TH/MM3 (0-0.4); EOSINOPHIL % 1.8 % (0.0-4.0); HEMATOCRIT 25.4 % (39.0-51.0); HEMO FLAGS DIFF FINAL; LYMPH % 14.2 % (9.0-44.0); MEAN CELL VOLUME 82.6 FL (80.0-100.0); MEAN CORPUSCULAR HEMOGLOBIN 26.8 PG (27.0-34.0); MEAN CORPUSCULAR HGB CONC 32.5 % (32.0-36.0); MONO % 11.5 % (0.0-8.0); NEUT % 71.9 % (16.0-70.0); PLATELET COUNT 182 TH/MM3 (150-450); RED BLOOD COUNT 3.08 MIL/MM3 (4.50-5.90); RED CELL DISTRIBUTION WIDTH 17.7 % (11.6-17.2); WHITE BLOOD COUNT 6.9 TH/MM3 (4.0-11.0)
[2017-03-24 11:09] LABS: ALKALINE PHOSPHATASE 88 U/L (45-117); ALT (GPT) 37 U/L (12-78); ANION GAP 5 MEQ/L (5-15); AST (GOT) 45 U/L (15-37); BICARBONATE 31.9 MEQ/L (21.0-32.0); BLOOD UREA NITROGEN 19 MG/DL (7-18); CHLORIDE 100 MEQ/L (98-107); GLOMERULAR FILTRATION RATE 109 ML/MIN (>89); POTASSIUM 4.1 MEQ/L (3.5-5.1); SODIUM (NA) 137 MEQ/L (136-145); TOTAL BILIRUBIN ADULT 0.5 MG/DL (0.2-1.0)
--- NOTE | 2017-03-24 11:22 | HHI.PR ---
Subjective Remarks Patient c/o lumbar spine pain which radiates into the abdomen in a belt fashion. Patient also states that he has been having right lower extremity weakness for several days, although it is the first day he mentions it to me. Still having fevers with a T max of 100.1 Objective Vitals Vital Signs Date Time Temp Pulse Resp B/P (MAP) Pulse Ox O2 Delivery O2 Flow Rate FiO2 03/24/17 08:00 98.8 96 16 128/75 (92) 100 03/24/17 00:00 99.4 101 20 106/62 (77) 97 03/23/17 20:00 100.1 115 20 117/65 (82) 98 03/23/17 16:00 98.0 108 17 120/71 (87) 98 03/23/17 12:00 99.1 106 17 111/68 (82) 99 I/O 03/23/17 03/23/17 03/23/17 03/24/17 03/24/17 03/24/17 07:00 15:00 23:00 07:00 15:00 23:00 Intake Total 100 ml 500 ml 700 ml Balance 100 ml 500 ml 700 ml Intake Oral 500 ml IV Total 100 ml 700 ml # Voids 5 # Bowel Movements 4 Result Diagram: 03/24/17 1005 03/23/17 1350 Imaging Last Impressions Scrotum Ultrasound 03/23/17 0000 Signed Impressions: Service Date/Time: Thursday, March 23, 2017 12:04 - CONCLUSION: Bilateral testicular atrophy. No torsion, inflammatory changes or other acute abnormality seen. Vishal Cevallos MD Abdomen Ultrasound 03/21/17 0000 Signed Impressions: Service Date/Time: Tuesday, March 21, 2017 15:29 - CONCLUSION: Only trace ascites which is inadequate for paracentesis. Michael Philip MD Abdomen/Pelvis CT 03/13/17 0000 Signed Impressions: Service Date/Time: February 15:19 - CONCLUSION: 1. Moderate-sized bilateral effusions with consolidative changes. 2. Moderate hepatosplenomegaly. 3. Ascites diffusely throughout the abdomen. 4. Compared to previous the effusions have enlarged. The ascites is new. The liver and spleen are stable in size. Natalio Way MD Chest X-Ray 03/10/17 0000 Signed Impressions: Service Date/Time: Friday, March 10, 2017 12:09 - CONCLUSION: No acute disease. There is no evidence of pneumonia. Jase Estes MD Objective Remarks AAOx3, moderate distress due to pain Clear lungs BL Abdomen very tender diffusely but tenderness more prominent on left upper quadrant and right lower quadrant. Lungs are clear but diminished auscultation bilaterally +1 Edema in lower extremities Procedures None Medications and IVs Current Medications Medications (Trade) Dose Ordered Sig/Jaya Route Start Time Stop Time Status Last Admin (NS Flush) 2 ml UNSCH PRN IV FLUSH 03/10/17 14:30 03/17/17 03:09 (NS Flush) 2 ml BID IV FLUSH 03/10/17 21:00 03/24/17 09:16 (Zofran Inj) 4 mg Q6H PRN IVP 03/10/17 14:30 03/15/17 15:00 (Lovenox Inj) 40 mg Q24H SQ 03/10/17 16:00 03/23/17 16:38 (Narcan Inj) 0.4 mg UNSCH PRN IV PUSH 03/10/17 14:30 (Duoneb Neb) 1 ampule Q2HR NEB PRN NEB 03/10/17 14:30 (Symbicort 160-4.5 Inh) 1 puff Q12HR INH 03/10/17 21:00 03/24/17 09:00 (D50w (Vial) Inj) 50 ml UNSCH PRN IV PUSH 03/11/17 17:15 (Glucagon Inj) 1 mg UNSCH PRN OTHER 03/11/17 17:15 (Vasotec Inj) 1.25 mg Q6H PRN IV PUSH 03/11/17 17:15 (Pepcid) 20 mg BID PO 03/13/17 21:00 03/24/17 09:02 (Imodium) 2 mg Q4H PRN PO 03/14/17 10:00 03/15/17 15:08 (Theragran Hematinic) 1 tab DAILY PO 03/15/17 09:00 03/24/17 09:02 (Vitamin C) 1,000 mg DAILY PO 03/15/17 09:00 03/24/17 09:02 Patient Own Medication (Linagliptin (Tradjenta) 5 MG DAILY PO 03/17/17 10:00 Future Hold (NovoLOG SUPPLEMENTAL SCALE) 1 ACHS SLIDING SCALE SQ 03/17/17 21:00 03/23/17 22:28 (Prinivil) 40 mg DAILY PO 03/19/17 09:00 03/24/17 09:02 Oxacillin Sodium 2 gm/Sodium Chloride 100 ml @ 200 mls/hr Q4H IV 03/18/17 17:00 03/24/17 09:13 (Dilaudid Pf Inj) 1 mg Q4H PRN IV PUSH 03/19/17 13:30 03/22/17 18:06 (Lasix Inj) 40 mg BID@09,18 IV PUSH 03/19/17 18:00 03/24/17 09:03 (Aldactone) 25 mg DAILY PO 03/19/17 15:00 03/24/17 09:02 Albumin Human 100 ml @ 60 mls/hr Q12H IV 03/19/17 20:00 03/24/17 09:12 (Levemir Inj) 17 units BID SQ 03/21/17 09:00 03/24/17 09:15 (NovoLOG INJ) 7 units TIDAC SQ 03/21/17 08:00 03/24/17 09:15 (Diflucan) 100 mg DAILY PO 03/21/17 10:30 03/24/17 09:02 (Msir) 15 mg Q3H PRN PO 03/21/17 11:00 03/24/17 04:33 (Msir) 30 mg Q4H PRN PO 03/21/17 11:00 03/24/17 10:25 (KCl) 20 meq DAILY PO 03/22/17 09:00 03/24/17 09:02 (Oramorph Sr) 45 mg Q12HR PO 03/22/17 21:00 03/24/17 09:02 (Neurontin) 300 mg TID PO 03/24/17 09:00 03/24/17 09:02 Urinary Catheter: No Vascular Central Line Catheter: No A/P Problem List: (1) Staphylococcus aureus bacteremia with sepsis ICD Code: A41.01 - Sepsis due to Methicillin susceptible Staphylococcus aureus Status: Acute (2) Liver cirrhosis ICD Code: K74.60 - Unspecified cirrhosis of liver (3) Uncontrolled hypertension ICD Code: I10 - Essential (primary) hypertension (4) COPD (chronic obstructive pulmonary disease) ICD Code: J44.9 - Chronic obstructive pulmonary disease, unspecified (5) Diabetes mellitus with hyperglycemia ICD Code: E11.65 - Type 2 diabetes mellitus with hyperglycemia Status: Chronic (6) Pleural effusion ICD Code: J90 - Pleural effusion, not elsewhere classified (7) Hyponatremia ICD Code: E87.1 - Hypo-osmolality and hyponatremia (8) Ascites of liver ICD Code: R18.8 - Other ascites Status: Chronic (9) Anemia ICD Code: D64.9 - Anemia, unspecified Status: Chronic (10) Anasarca ICD Code: R60.1 - Generalized edema Status: Acute (11) Abdominal pain ICD Code: R10.9 - Unspecified abdominal pain Status: Acute (12) Testicular pain, left ICD Code: N50.812 - Left testicular pain Plan: Testicular ultrasound showed bilateral testicular atrophy. No distortion , inflammatory changes or other acute abnormality seen. I will start the patient on oral doxycycline 100 minutes by mouth twice a day for 7 days to treat the patient empirically for epididymitis. I will also send urine GC/ chlamydia PCR. (13) UTI (urinary tract infection) ICD Code: N39.0 - Urinary tract infection, site not specified Plan: Urine culture dated 03/10/17 grew MSSA. Antibiotics as per ID. (14) Back pain ICD Code: M54.9 - Dorsalgia, unspecified Plan: Patient complains of lumbar spine pain, on exam patient has tenderness to palpation of lumbar spine and right lower extremity weakness. I will order a lumbar spine MRI to rule out infectious processes in the lumbar spine. (15) Low grade fever ICD Code: R50.9 - Fever, unspecified Plan: The patient is still having low-grade fevers. Ordered lumbar spine MRI, will follow up results. (16) Bilateral leg edema ICD Code: R60.0 - Localized edema Plan: Improving with diuretics. Likely due to anasarca. However given persistence of low-grade fevers I will order a venous Doppler to rule out DVT. Assessment and Plan (1) Staphylococcus aureus bacteremia with sepsis Plan: The patient was admitted to the medical floor, treated with IV antibiotics, infectious disease consulted. Source likely the urine since urine culture is growing MSSA. Continue IV antibiotics as per infectious disease recommendations. The patient is currently on oxacillin 2 g IV every 4 hours. 03/24 The patient has been started on fluconazole for yeast urine on 03/21. Continue antibiotics as per ID recommendations. The patient currently on oxacillin 2 g IV every 4 hours. Continue to monitor blood cultures which have been negative since 03/17. The patient however still having low-grade fevers. I will start the patient on oral doxycycline for left testicular pain and suspected epididymitis. (2) Liver cirrhosis Abdomen and pelvis CT performed on 03/13/17 show moderate-sized bilateral pleural effusions with consolidative changes. Moderate hepatosplenomegaly. Ascites diffusely throughout the abdomen which compared to a previous CT abdomen and pelvis obtained on 03/10/17 was increased. There is a report of more prominent portal vein and interval enlargement of the spleen which measures 17.7 cm, findings consistent with increasing portal hypertension. Ultrasound-guided abdominal paracentesis was ordered, however there is not enough fluid for the procedure to be done. Continue treatment with diuretics with Lasix 40 mg IV twice a day and spironolactone 100 mg by mouth daily. GI following. (3) Uncontrolled hypertension Plan: Blood pressure initially uncontrolled. Better controlled after dose of lisinopril increased. Continue to monitor bp and continue lisinopril. (4) COPD (chronic obstructive pulmonary disease) Plan: COPD seems to be on prednisone for COPD which seems to be stable. Continue prednisone taper. (5) Diabetes mellitus with hyperglycemia Plan: Blood sugars are still labile. Continue basal bolus therapy with insulin Levemir and prandial insulin NovoLog. Place on diabetic diet and high NovoLog insulin scale. Continue to monitor Accu-Cheks. (6) Pleural effusion Plan: Pleural effusion likely overload and diastolic congestive heart failure secondary to liver cirrhosis. Echocardiogram done today shows a normal systolic function with an EF in the range of 55-60%. Wall thickness measure at the upper limits of normal. Continue with diuretics. (7) Hyponatremia Plan: Suspect combination of hypervolemic hyponatremia and pseudo- hyperglycemia given uncontrolled blood sugars. Continue with Lasix and spironolactone as well as blood sugar control. (8) Ascites of liver Plan: With diuretics as stated above. 03/20 appreciate GI recommendations. Abdominal paracentesis ordered. CTA abdomen cannot be done due to contrast dye allergy. 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 Less than 50% stenosis. Mesenteric artery. 03/22 vascular surgery recommendations appreciated. Discussed the case with Dr. Gurrola states that abdominal pain is not coming from this finding. Recommended outpatient treatment with pain weed controller. (9) Anemia Plan: Anemia seems to be chronic, hemoglobin seems to be trending down. Recent previous records reviewed on January 2017 show that the patient's hemoglobin was near normal. I will check iron studies and stool guaiac. 03/20 stool guaiac pending. Iron low, ferrtitn normal - TIBC and percent saturation not done. will order for am. 03/22 stool guaiac still not done. (10) Anasarca Plan: Patient with increasing bilateral pleural effusions, ascites and lower extremity edema. Anasarca likely secondary to combination of liver cirrhosis and congestive heart failure. Continue with diuretics. (11) Abdominal pain Plan: Patient complains of abdominal pain especially in the left upper quadrant radiating to the right lower quadrant. Patient has had 2 abdominal [address]s on this admission as described above. Suspect abdominal pain is likely secondary from ascites and hepatosplenomegaly. 03/20 Gastroenterology recommendations appreciated. For abdominal paracentesis to r/o sbp, US abdomen ordered to r/o mesenteric ischemia. Continue pain control with Oramorph SR, Dilaudid as needed for breakthrough pain. 03/21 abdominal paracentesis reordered, however I got a call from the retail merchandiser technician stating that after radiologist reviewed the ultrasound of the abdomen today then there is no longer marked ascites to safely obtain fluid for a diagnostic paracentesis. I will also continue Oramorph SR at 30 mg by mouth twice a day, will add morphine IR for pain control and continue Dilaudid. 03/22 the patient states that his pain still very uncontrolled I will increase the dose of Oramorph SR, continue morphine IR for pain control and continue Dilaudid IV for breakthrough pain. 05/23 pain better controlled. Continue Oramorph SR 45 mg subcutaneous twice a day with morphine IR and Dilaudid for breakthrough pain. GI Prophylaxis: Continue PPI. VT prophylaxis: Lovenox held secondary to drop in hemoglobin which could've been dilutional secondary to hypervolemia, I will resume Lovenox subcutaneous. Discharge Planning Continue to monitor in the medical floor. The patient is still having low- grade fevers, pending lumbar spine MRI and having testicular pain - started on doxycycline. Problem Qualifiers (1) COPD (chronic obstructive pulmonary disease): Qualified Codes: J42 - Unspecified chronic bronchitis (2) Diabetes mellitus with hyperglycemia: Qualified Codes: E11.65 - Type 2 diabetes mellitus with hyperglycemia; Z79.4 - FDC (current) use of insulin (3) Anemia: Qualified Codes: D64.9 - Anemia, unspecified David Braswell MD Mar 24, 2017 11:22
--- NOTE | 2017-03-24 11:26 | HHI.IDPN ---
Note Infectious Disease Note Patient complains of pain in the left testicle, lower back and abdomen. low grade fever. Nl WBC. No chills. Blood culture 03/21 and 03/17 - no growth. Prior blood culture on 03/10 - staph aureus and urine culture had staph aureus. 2D ECHO has no vegetations. The patient underwent right colon resection and also small bowel resection for ischemic cecum and fascia and partial ischemia of the distal terminal ileum on 01/29/2017. After the surgery and he also had report of Clostridium perfringens at the margins of the surgical tissue on the pathology specimen. PAST MEDICAL HISTORY: 1. Esophageal varices. 2. Hepatitis C. 3. History of cirrhosis. 4. Recent bowel resection. 5. Diabetes mellitus. 6. History of laparoscopic cholecystectomy. 7. History of back surgery. 8. Neuropathy. 9. Vasectomy. 10. History of bladder cancer. 11. History of bilateral knee surgery. 12. History of banding of esophageal varices. ALLERGIES: 1. PENTAZOCINE. 2. CODEINE. 3. KETORFANOL. 4. IV DYE. 5. IODINATED CONTRAST. ANTIBIOTICS: Oxacillin. fluconazole. SOCIAL HISTORY: No alcohol use. No illicit drugs. FAMILY HISTORY: Noncontributory. OBJECTIVE: Vital Signs Date Time Temp Pulse Resp B/P (MAP) Pulse Ox O2 Delivery O2 Flow Rate FiO2 03/24/17 08:00 98.8 96 16 128/75 (92) 100 03/24/17 00:00 99.4 101 20 106/62 (77) 97 03/23/17 20:00 100.1 115 20 117/65 (82) 98 03/23/17 16:00 98.0 108 17 120/71 (87) 98 03/23/17 12:00 99.1 106 17 111/68 (82) 99 Laboratory Tests Test 03/23/17 13:50 03/24/17 10:05 White Blood Count 9.2 TH/MM3 6.9 TH/MM3 Red Blood Count 2.86 MIL/MM3 3.08 MIL/MM3 Hemoglobin 7.5 GM/DL 8.3 GM/DL Hematocrit 23.6 % 25.4 % Mean Corpuscular Volume 82.3 FL 82.6 FL Mean Corpuscular Hemoglobin 26.3 PG 26.8 PG Mean Corpuscular Hemoglobin Concent 31.9 % 32.5 % Red Cell Distribution Width 17.5 % 17.7 % Platelet Count 223 TH/MM3 182 TH/MM3 Mean Platelet Volume 7.9 FL 8.2 FL Neutrophils (%) (Auto) 71.9 % Lymphocytes (%) (Auto) 14.2 % Monocytes (%) (Auto) 11.5 % Eosinophils (%) (Auto) 1.8 % Basophils (%) (Auto) 0.6 % Neutrophils # (Auto) 5.0 TH/MM3 Lymphocytes # (Auto) 1.0 TH/MM3 Monocytes # (Auto) 0.8 TH/MM3 Eosinophils # (Auto) 0.1 TH/MM3 Basophils # (Auto) 0.0 TH/MM3 CBC Comment DIFF FINAL Differential Comment Laboratory Tests Test 03/23/17 13:50 03/24/17 10:05 Blood Urea Nitrogen 21 MG/DL 19 MG/DL Creatinine 0.76 MG/DL 0.72 MG/DL Random Glucose 258 MG/DL 96 MG/DL Calcium Level 8.2 MG/DL 8.3 MG/DL Sodium Level 134 MEQ/L 137 MEQ/L Potassium Level 3.8 MEQ/L 4.1 MEQ/L Chloride Level 98 MEQ/L 100 MEQ/L Carbon Dioxide Level 29.6 MEQ/L 31.9 MEQ/L Anion Gap 6 MEQ/L 5 MEQ/L Estimat Glomerular Filtration Rate 103 ML/MIN 109 ML/MIN Total Protein 7.9 GM/DL Albumin 2.4 GM/DL Alkaline Phosphatase 88 U/L Aspartate Amino Transf (AST/SGOT) 45 U/L Alanine Aminotransferase (ALT/SGPT) 37 U/L Total Bilirubin 0.5 MG/DL IMAGING: Abdomen Ultrasound 03/20/17 0000 Signed Impressions: Service Date/Time: March 18:32 - CONCLUSION: 1. 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 2. Less than 50%% stenosis in the superior mesenteric artery. Jase Estes MD Abdomen/Pelvis CT 03/13/17 0000 Signed Impressions: Service Date/Time: February 15:19 - CONCLUSION: 1. Moderate-sized bilateral effusions with consolidative changes. 2. Moderate hepatosplenomegaly. 3. Ascites diffusely throughout the abdomen. 4. Compared to previous the effusions have enlarged. The ascites is new. The liver and spleen are stable in size. Natalio Way MD Chest X-Ray 03/10/17 0000 Signed Impressions: Service Date/Time: Friday, March 10, 2017 12:09 - CONCLUSION: No acute disease. There is no evidence of pneumonia. Jase Estes MD PHYSICAL EXAMINATION: GENERAL: No acute distress. Awake and alert and oriented. HEENT: No icterus. Oropharynx moist mucosa without lesions. NECK: Supple. LUNGS: Clear breath sounds. HEART: Regular S1-S2 without murmurs, rubs or gallops. ABDOMEN: Midline surgical incision appears intact. Positive bowel sounds. Tenderness on palpation of the right lower quadrant. Tenderness at the lower back. EXTREMITIES: No clubbing, cyanosis or edema. SKIN: No rash. NEUROLOGIC: No gross focal findings. PSYCHIATRIC: Calm and cooperative. IMPRESSION: 1. Bacteremia due to staph aureus. Persistent positive blood cultures. - No clear source. 2. Urinary tract infection due to staph aureus. Probably is the source. However give the persisting blood culture could have another nidus. 3. Abdominal pain of questionable etiology. 4. Fever low grade. 5. Probably epididymitis/orchitis. RECOMMENDATIONS: 1. Continue Oxacillin. 2. Monitor blood culture. 3. Continue fluconazole for yeast in urine. 4. MRI of the lower back. Discussed with Dr. Hdez. Florentino Burnette MD Mar 24, 2017 11:26
[2017-03-24 12:00] VITALS: BP 125/76; PULSE 94; RESP 19; TEMP 99.5; O2SAT 100
[2017-03-24] MEDS: DOXYCYCLINE HYCLATE 100 MG TAB PO SCH ×2 (12:35→23:52)
--- NOTE | 2017-03-24 13:14 | RADRPT ---
EXAM DATE/TIME: 03/24/2017 12:42 [facility] COMPARISON: US LEG BILATERAL VENOUS DOPPLER, February 07, 2017, 8:24. INDICATIONS : Bilateral leg edema. MEDICAL HISTORY : Hypercholesterolemia. Hypertension. Chronic obstructive pulmonary disease. Deep vein thrombosis. Cheung creatitis. Carcinoma, bladder. Kidney stones. Arthritis. Hepititis C. Diabetes. Cirrhosis. Chem otherapy. SURGICAL HISTORY : Cholecystectomy.Appendectomy. Tympanostomy tube. Cardiac catheterization. Bowel resection. Spleen reconstruction. ERCP Banding. Left hand surgery. Bilateral knee surgery. Back surgery x 2. ENCOUNTER: Subsequent ACUITY: 4 - 6 days PAIN SCORE: 4/10 LOCATION: Bilateral legs. TECHNIQUE: Venous ultrasound of the left and right leg was performed from the inguinal ligament to the proximal calf. Real-time, color Doppler and spectral tracing, compression and augmentation techniques were us ed. FINDINGS: RIGHT LEG: There is normal compressibility of the deep venous system from the inguinal region to the proximal ca lf. No echogenic clot is seen in the lumen of the common femoral, femoral, popliteal, and posterior tibial veins. There is a normal response of the venous system to proximal and distal augmentation an d respiration. LEFT LEG: There is normal compressibility of the deep venous system from the inguinal region to the proximal ca lf. No echogenic clot is seen in the lumen of the common femoral, femoral, popliteal, and posterior tibial veins. There is a normal response of the venous system to proximal and distal augmentation an d respiration. CONCLUSION: Negative for deep venous thrombosis. Parker Way MD FACR on March 24, 2017 at 13:11 Board Certified Radiologist. This report was verified electronically.
[2017-03-24] MEDS: ENOXAPARIN SODIUM 40 MG/0.4 ML SYRINGE SQ SCH (14:48)
[2017-03-24 16:00] VITALS: BP 118/76; PULSE 98; RESP 18; TEMP 99.1; O2SAT 100
[2017-03-24 16:01] LABS: CHLAMYDIA PCR NOT DETECTED (NOT DETECT); NEISSERIA PCR NOT DETECTED (NOT DETECT)
[2017-03-24 20:44] VITALS: BP 150/81; PULSE 103; RESP 18; TEMP 99.2; O2SAT 96
[2017-03-24] MEDS: HYDROmorphone HCL PF 1 MG/ML VIAL IV PUSH PRN (21:30)
[2017-03-24 23:51] LABS: HEP B DNA R1 GREATER THAN 170000000 IU/mL (0-19); HEP B DNA R2 GREATER THAN 8.23 (<1.30)
[2017-03-25 00:37] VITALS: BP 116/61; PULSE 109; RESP 18; TEMP 99.9; O2SAT 94
[2017-03-25] MEDS: OXACILLIN INJ 2 GM in SODIUM CHLORIDE 0.9% INJ 100 ML IV SCH ×5 (00:44→22:24)
[2017-03-25] MEDS: HYDROmorphone HCL PF 1 MG/ML VIAL IV PUSH PRN (01:31)
[2017-03-25 03:49] LABS: MITOCHONDRIAL ABS LESS THAN 20.0 U (<=20.0)
[2017-03-25] MEDS: MORPHINE SULFATE 30 MG TAB PO PRN (06:15)
[2017-03-25 07:47] VITALS: BP 133/73; PULSE 100; RESP 12; TEMP 99.3; O2SAT 94
[2017-03-25] MEDS: INSULIN ASPART SUPPLEMENTAL SCALE SQ SCH ×2 (08:00→20:44)
[2017-03-25] MEDS: LISINOPRIL 20 MG TAB PO SCH (09:00)
[2017-03-25] MEDS: BUDESONIDE-FORMOTEROL 160/4.5 MCG INHALER INH SCH ×2 (09:00→21:00)
[2017-03-25] MEDS ORDERED: GADODIAMIDE PF 287 MG/ML 20 ML VIAL (for RAD MRI) IV PUSH ONE (09:12)
[2017-03-25] MEDS: FAMOTIDINE 20 MG TAB PO SCH ×2 (09:40→21:00)
[2017-03-25] MEDS: FLUCONAZOLE 100 MG TAB PO SCH (09:40)
[2017-03-25] MEDS: GABAPENTIN 300 MG CAP PO SCH ×2 (09:40→17:45)
[2017-03-25] MEDS: MORPHINE SULFATE 15 MG CONTROLLED RELEASE TAB PO SCH ×2 (09:43→21:00)
[2017-03-25] MEDS: MULTIVITAMIN HEMATINIC THERAPEUTIC TAB PO SCH (09:44)
[2017-03-25] MEDS: POTASSIUM CHLORIDE 20 MEQ CONTROLLED RELEASE TAB PO SCH (09:44)
[2017-03-25] MEDS: ASCORBIC ACID 500 MG TAB PO SCH (09:45)
[2017-03-25] MEDS: SPIRONOLACTONE 25 MG TAB PO SCH (09:45)
[2017-03-25] MEDS: FUROSEMIDE 40 MG/4 ML VIAL IV PUSH SCH ×2 (09:45→17:57)
[2017-03-25] MEDS: ALBUMIN 25% INJ 100 ML IV SCH ×2 (09:50→21:06)
[2017-03-25] MEDS: INSULIN DETEMIR 100 UNITS/ML VIAL SQ SCH ×2 (09:51→21:00)
[2017-03-25] MEDS: INSULIN ASPART 1,000 UNITS/10 ML VIAL SQ SCH ×2 (09:54→17:00)
[2017-03-25] MEDS: SODIUM CHLORIDE 0.9% FLUSH 10 ML FLUSH IV FLUSH SCH ×2 (09:55→21:08)
--- NOTE | 2017-03-25 10:20 | RADRPT ---
EXAM DATE/TIME: 03/25/2017 08:45 [place] COMPARISON: MRI LUMBAR SPINE W/O CONTRAST, March 10, 2014, 14:13. INDICATIONS : Abscess. CONTRAST: 17 cc Omniscan (gadodiamide) IV MEDICAL HISTORY : Hypertension. Carcinoma, bladder. Hepatitis C. SURGICAL HISTORY : Colon resection. ENCOUNTER: Initial ACUITY: 1 week PAIN SCORE: 7/10 LOCATION: back TECHNIQUE: Multiplanar multisequence MRI of the lumbar spine was performed with and without contrast. FINDINGS: There is signal change and enhancement extensively involving the L1 and 2 vertebral bodies. The inter vening disc space is notable for significant fluid signal. There is prominent paraspinal and epidural edema and enhancement. The appearance is consistent with osteomyelitis and discitis. There are small abscesses present in the psoas muscles adjacent to the L2 vertebral body bilaterally with a roughly 1.5 cm collection on the right side and a 2.7 cm collection on the left side. Dorsally protruding dis c material and abscess fluid produces moderate canal stenosis at the L1-2 level with canal diameter r educed to about a centimeter. At L2-3, annular disc bulge with mild broad superimposed dorsal disc protrusion produces mild flatten ing of the thecal sac in some crowding of the nerve roots. The L2 foramina are satisfactory. At L3-4, mild annular disc bulge and brought superimposed dorsal disc protrusion produces minimal canal steno sis. There is mild dorsal ligamentous hypertrophy and facet arthropathy present. L3 foramina are sati sfactory. At L4-5, annular disc bulge with moderate brought superimposed dorsal disc protrusion is no erci. There is severe bilateral posterior facet arthropathy and ligamentous hypertrophy extremity to s evere concentric canal stenosis with canal diameter reduced to about a centimeter. The L4 foramina ap pear adequate. At L5-S1, mild annular disc bulge and minimal broad protrusion is present without significant associa eric canal or foraminal compromise. CONCLUSION: Discitis at L1-2 with adjacent osteomyelitis. Significant paraspinal and epidural abscess and bilater al psoas abscesses. Moderate degenerative spondylosis throughout the remainder of the lumbar spine with fairly severe can al stenosis at L4-5 and less prominent changes at other levels as described Vishal Osorio MD on March 25, 2017 at 10:08 Board Certified Radiologist. This report was verified electronically.
--- NOTE | 2017-03-25 11:25 | PD.CONS ---
[facility] Service Neurosurgery Consult Requested By Dr Rios Reason for Consult Spinal epidural abscess Primary Care Physician No Primary Care Physician History of Present Illness Mr. Parks is a 66-year-old male who was admitted secondary to right lower quadrant pain with sepsis. She has a history of a bowel resection approximately 1.5 months ago. There was suspicion of bacterial enteritis or colitis is present in place since his recent surgical site at risk so close monitoring and treatments are initiated. His surgeon has been consulted. Nausea and vomiting was present at time of admit. he is a smoker. history of COPD. Three weeks ago he underwent a laparotomy. He has developed extremedly severe pain with radiculopathy in his right lower extremity, and now significant weakness in his legs. No incontinence of stool or urine. MRI L spine shopwed a large epidural abscess with spinal cord compression. neurosurgical consultatin was requested. Review of Systems Constitutional: COMPLAINS OF: Fever, Chills, Night Sweats, DENIES: Fatigue Eyes: DENIES: Blurred vision, Diplopia, Eye inflammation, Eye pain Ears, nose, mouth, throat: DENIES: Tinnitus, Hearing loss, Vertigo Respiratory: DENIES: Apneas, Cough, Snoring, Wheezing, Shortness of breath Cardiovascular: DENIES: Chest pain, Palpitations, Syncope Gastrointestinal: COMPLAINS OF: Diarrhea, Nausea, Vomiting, DENIES: Abdominal pain, Black stools, Bloody stools, Constipation Musculoskeletal: DENIES: Joint pain, Muscle aches, Stiffness Integumentary: DENIES: Abnormal pigmentation, Nail changes, Pruritus, Rash Hematologic/lymphatic: DENIES: Bruising, Lymphadenopathy Immunologic/allergic: DENIES: Eczema, Urticaria Neurologic: REPORTS: Abnormal gait, weakness, Paresthesias Psychiatric: DENIES: Anxiety, Confusion, Hallucinations Past Family Social History Allergies: Coded Allergies: Iodinated Contrast- Oral and IV Dye (Unverified Allergy, Severe, rash/ flush, 03/10/17) butorphanol (Unverified Allergy, Severe, rash, 03/10/17) codeine (Unverified Allergy, Severe, breathing probs, 03/10/17) pentazocine (Unverified Allergy, Severe, breathing probs, 03/10/17) Past Medical History Cirrhosis Hep C HTN COPD DM Hx of DVT Past Surgical History hand surgery appendectomy cholecystectomy repair of spleen after trauma two back surgeries multiple ERCPs Reported Medications Dilaudid (Hydromorphone HCl) 2 Mg Tab 2 Mg PO Q6H PRN Levemir Inj (Insulin Detemir) 1,000 unit/ 10 ML Vial 30 Units SQ HS Please make a follow-up appointment in 3-4 weeks for further Rx renewals. Do not mix with any other Insulin. Pioglitazone (Pioglitazone HCl) 15 Mg Tab 15 Mg PO DAILY Tradjenta (Linagliptin) 5 Mg Tab 5 Mg PO DAILY Novolog Inj (Insulin Aspart) 1,000 Unit/10 Ml Vial 2-12 Units SQ ACHS Max dose at bedtime ( ) units; sugars less than 70,(0) units; sugars 150-199,(2) units; sugars 200-249,(4) units; sugars 250-299,(7) units; sugars 300-349,(10) units; sugars greater than 349,(12)units Glucosamine Chondroitin (Hnkxulrxzuo-Hwqnnocwkci-Wln C-) 1 Tab Tab 1 Tab PO BID Fish Oil (Willard-3 Fatty Acids) 1,000 Mg Cap 1 Cap PO BID Gemfibrozil 600 Mg Tab 600 Mg PO BIDAC Take 30 minutes prior to breakfast and dinner. Symbicort Inh (Budesonide/Formoterol Fumarate) 160-4.5 Mcg/Act Aero 1 Puff INH Q12HR Lisinopril 10 Mg Tab 10 Mg PO DAILY Gabapentin 100 Mg Cap 100 Mg PO TID Proair Hfa 8.5 GM Inh (Albuterol Sulfate) 90 Mcg/Act Aer 1 Puff INH Q4H PRN 108 mcg/actuation Active Ordered Medications Current Medications Ondansetron HCl (Zofran Inj) 4 mg ONCE ONCE IVP Last administered on 11:43; Start 03/10/17 at 11:15; Stop 03/10/17 at 11:16; Status DC Sodium Chloride 1,000 ml @ 1,000 mls/hr Q1H IV Last administered on 11:43; Start 03/10/17 at 11:09; Stop 03/10/17 at 12:08; Status DC Sodium Chloride (NS Flush) 2 ml UNSCH PRN IV FLUSH FLUSH AFTER USING IV ACCESS Last administered on 03/10/17 12:37; Start 03/10/17 at 11:15; Stop 03/10/17 at 20:31; Status DC Hydromorphone HCl (Dilaudid Pf Inj) 1 mg ONCE ONCE IVS Last administered on 11:44; Start 03/10/17 at 11:15; Stop 03/10/17 at 11:16; Status DC Piperacillin Sod/ Tazobactam Sod 50 ml @ 100 mls/hr ONCE ONCE IV Last administered on 03/10/17 12:37; Start 03/10/17 at 12:15; Stop 03/10/17 at 12 :44; Status DC Clindamycin Phosphate 900 mg/ Sodium Chloride 106 ml @ 212 mls/hr ONCE ONCE IV Last administered on 03/10/17 14:04; Start 03/10/17 at 13:30; Stop 03/10 at 13:59; Status DC Hydromorphone HCl (Dilaudid Pf Inj) 1 mg ONCE ONCE IV PUSH Last administered on 03/10/17 14:33; Start 03/10/17 at 14:30; Stop 03/10/17 at 14:31; Status DC Sodium Chloride 1,000 ml @ 100 mls/hr Q10H IV Last administered on 03/23/17 00:17; Start 03/10/17 at 14:22; Stop 03/24/17 at 10:56; Status DC Sodium Chloride (NS Flush) 2 ml UNSCH PRN IV FLUSH FLUSH AFTER USING IV ACCESS Last administered on 03/17/17 03:09; Start 03/10/17 at 14:30 Sodium Chloride (NS Flush) 2 ml BID IV FLUSH Last administered on 03/25/17 09: 55; Start 03/10/17 at 21:00 Ondansetron HCl (Zofran Inj) 4 mg Q6H PRN IVP NAUSEA OR VOMITING Last administered on 03/15/17 15:00; Start 03/10/17 at 14:30 Enoxaparin Sodium (Lovenox Inj) 40 mg Q24H SQ Last administered on 03/24/17 14 :48; Start 03/10/17 at 16:00 Naloxone HCl (Narcan Inj) 0.4 mg UNSCH PRN IV PUSH SEE LABEL COMMENTS; Start 03/10/17 at 14:30 Potassium Chloride (KCl) 30 meq ONCE ONCE PO Last administered on 03/10/17 15:05; Start 03/10/17 at 14:30; Stop 03/10/17 at 14:55; Status DC Dextrose (D50w (Vial) Inj) 50 ml UNSCH PRN IV PUSH HYPOGLYCEMIA-SEE COMMENTS; Start 03/10/17 at 14:30; Stop 03/10/17 at 20:32; Status DC Glucagon (Glucagon Inj) 1 mg UNSCH PRN OTHER HYPOGLYCEMIA-SEE COMMENTS; Start 03/10/17 at 14:30; Stop 03/10/17 at 20:33; Status DC Albuterol/ Ipratropium (Duoneb Neb) 1 ampule Q2HR NEB PRN NEB SHORTNESS OF BREATH; Start 03/10/17 at 14:30 Hydromorphone HCl (Dilaudid Pf Inj) 1 mg Q4H PRN IV PUSH pain greater than 7; Start 03/10/17 at 14:30; Stop 03/10/17 at 18:04; Status DC Ketorolac Tromethamine (Toradol Inj) 30 mg Q6H PRN IV PUSH pain 3-8 Last administered on 03/14/17 01:25; Start 03/10/17 at 14:30; Stop 03/15/17 at 14 :29; Status DC Famotidine (Pepcid Inj) 20 mg Q12H IV PUSH Last administered on 03/13/17 15: 50; Start 03/10/17 at 16:00; Stop 03/13/17 at 17:29; Status DC Budesonide/ Formoterol Fumarate (Symbicort 160-4.5 Inh) 1 puff Q12HR INH Last administered on 03/25/17 09:00; Start 03/10/17 at 21:00 Gabapentin (Neurontin) 100 mg TID PO Last administered on 03/23/17 16:38; Start 03/10/17 at 18:00; Stop 03/23/17 at 18:36; Status DC Piperacillin Sod/ Tazobactam Sod 100 ml @ 200 mls/hr Q6H IV Last administered on 03/18/17 14:01; Start 03/10/17 at 19:00; Stop 03/18/17 at 15:09; Status DC Clindamycin Phosphate 600 mg/ Sodium Chloride 104 ml @ 208 mls/hr Q8H IV Last administered on 03/16/17 04:41; Start 03/10/17 at 23:00; Stop 03/16/17 at 12 :45; Status DC Influenza Virus Vaccine (Flu (Quadrivalent) Vaccine Inj) 0.5 ml ONCE ONCE IM ; Start 03/11/17 at 10:00; Stop 03/11/17 at 10:01; Status DC Hydromorphone HCl (Dilaudid Pf Inj) 1 mg Q4H PRN IV PAIN GREATER THAN 7 Last administered on 03/11/17 15:59; Start 03/10/17 at 18:15; Stop 03/11/17 at 18 :28; Status DC Dextrose (D50w (Vial) Inj) 50 ml UNSCH PRN IV PUSH HYPOGLYCEMIA-SEE COMMENTS; Start 03/10/17 at 20:30; Stop 03/11/17 at 17:34; Status DC Glucagon (Glucagon Inj) 1 mg UNSCH PRN OTHER HYPOGLYCEMIA-SEE COMMENTS; Start 03/10/17 at 20:30; Stop 03/11/17 at 17:34; Status DC Insulin Aspart (NovoLOG SUPPLEMENTAL SCALE) 1 ACHS SLIDING SCALE SQ Last administered on 03/11/17 17:28; Start 03/10/17 at 21:00; Stop 03/11/17 at 17 :34; Status DC Calcium Gluconate 1 gm/Sodium Chloride 100 ml @ 100 mls/hr ONCE ONCE IV Last administered on 03/11/17 18:36; Start 03/11/17 at 17:30; Stop 03/11/17 at 18 :29; Status DC Dextrose (D50w (Vial) Inj) 50 ml UNSCH PRN IV PUSH HYPOGLYCEMIA-SEE COMMENTS; Start 03/11/17 at 17:15 Glucagon (Glucagon Inj) 1 mg UNSCH PRN OTHER HYPOGLYCEMIA-SEE COMMENTS; Start 03/11/17 at 17:15 Insulin Aspart (NovoLOG SUPPLEMENTAL SCALE) 1 ACHS SLIDING SCALE SQ Last administered on 03/17/17 12:00; Start 03/11/17 at 21:00; Stop 03/17/17 at 17 :25; Status DC Enalaprilat (Vasotec Inj) 1.25 mg Q6H PRN IV PUSH SBP>160, DBP>90; Start 03/11 at 17:15 Hydromorphone HCl (Dilaudid Pf Inj) 1.5 mg Q3H PRN IV PAIN GREATER THAN 7 Last administered on 03/13/17 11:33; Start 03/11/17 at 19:00; Stop 03/13/17 at 13 :56; Status DC Hydromorphone HCl (Dilaudid Pf Inj) 2 mg Q3H PRN IV PAIN GREATER THAN 7 Last administered on 03/17/17 06:12; Start 03/13/17 at 16:00; Stop 03/17/17 at 08 :00; Status DC Naloxone HCl (Narcan Inj) 0.4 mg UNSCH X1 PRN IV PUSH RESP DEPRESSION OR HYPOTENSION; Start 03/13/17 at 14:00; Stop 03/20/17 at 13:59; Status DC Famotidine (Pepcid) 20 mg BID PO Last administered on 03/25/17 09:40; Start 03/13/17 at 21:00 Calcium Gluconate 1 gm/Sodium Chloride 100 ml @ 100 mls/hr ONCE ONCE IV Last administered on 03/14/17 09:22; Start 03/14/17 at 09:00; Stop 03/14/17 at 09 :59; Status DC Loperamide HCl (Imodium) 2 mg Q4H PRN PO Diarrhea Last administered on 15:08; Start 03/14/17 at 10:00 Multivitamin Hematinic Therapeutic (Theragran Hematinic) 1 tab DAILY PO Last administered on 03/25/17 09:44; Start 03/15/17 at 09:00 Ascorbic Acid (Vitamin C) 1,000 mg DAILY PO Last administered on 03/25/17 09: 45; Start 03/15/17 at 09:00 Metoprolol Tartrate (Lopressor) 25 mg ONCE ONCE PO Last administered on 21:03; Start 03/14/17 at 20:45; Stop 03/14/17 at 20:46; Status DC Prednisone (Deltasone) 10 mg BID PO Last administered on 03/19/17 08:29; Start 03/15/17 at 21:00; Stop 03/19/17 at 14:10; Status DC Prednisone (Deltasone) 20 mg ONCE ONCE PO Last administered on 03/15/17 12: 53; Start 03/15/17 at 12:30; Stop 03/15/17 at 12:31; Status DC Morphine Sulfate (Oramorph Sr) 15 mg Q12HR PO Last administered on 03/19/17 08 :23; Start 03/16/17 at 21:00; Stop 03/19/17 at 13:39; Status DC Oxycodone/ Acetaminophen (Percocet 5-325 Mg) 1 tab Q4H PRN PO Pain 3 to 6; Start 03/17/17 at 08:00; Stop 03/17/17 at 08:00; Status DC Oxycodone/ Acetaminophen (Percocet 10-325 Mg) 1 tab Q4H PRN PO Pain 7 to 10; Start 03/17/17 at 08:00; Stop 03/17/17 at 08:00; Status DC Hydromorphone HCl (Dilaudid Pf Inj) 1 mg Q4H PRN IV PUSH Breakthrough Pain Last administered on 03/18/17 11:45; Start 03/17/17 at 08:00; Stop 03/18/17 at 15:11; Status DC Insulin Detemir (Levemir Inj) 14 units HS SQ Last administered on 03/17/17 20 :10; Start 03/16/17 at 21:00; Stop 03/18/17 at 11:17; Status DC Insulin Human NPH (NovoLIN N INJ) 8 units ONCE ONCE SQ Last administered on 13:00; Start 03/16/17 at 13:00; Stop 03/16/17 at 13:01; Status DC Oxycodone HCl (Roxicodone) 5 mg Q4H PRN PO Pain 3 to 6; Start 03/17/17 at 08: 00; Stop 03/18/17 at 15:11; Status DC Oxycodone HCl (Roxicodone) 10 mg Q4H PRN PO Pain 7 to 10 Last administered on 03/18/17 14:00; Start 03/17/17 at 08:00; Stop 03/18/17 at 15:11; Status DC Lisinopril (Prinivil) 10 mg DAILY PO Last administered on 03/18/17 09:26; Start 03/17/17 at 09:15; Stop 03/18/17 at 11:17; Status DC Patient Own Medication (Linagliptin (Tradjenta) 5 MG DAILY PO ; Start 03/17/17 at 10:00; Status Future Hold Insulin Aspart (NovoLOG SUPPLEMENTAL SCALE) 1 ACHS SLIDING SCALE SQ Last administered on 03/24/17 18:05; Start 03/17/17 at 21:00 Insulin Detemir (Levemir Inj) 14 units BID SQ Last administered on 03/20/17 20 :36; Start 03/18/17 at 21:00; Stop 03/21/17 at 00:43; Status DC Lisinopril (Prinivil) 40 mg DAILY PO Last administered on 03/25/17 09:00; Start 03/19/17 at 09:00 Insulin Detemir (Levemir Inj) 10 units NOW ONCE SQ Last administered on 14:01; Start 03/18/17 at 11:15; Stop 03/18/17 at 12:12; Status DC Lisinopril (Prinivil) 20 mg ONCE ONCE PO Last administered on 03/18/17 14:00 ; Start 03/18/17 at 11:30; Stop 03/18/17 at 12:12; Status DC Oxacillin Sodium 2 gm/Sodium Chloride 100 ml @ 200 mls/hr Q4H IV Last administered on 03/25/17 09:46; Start 03/18/17 at 17:00 Morphine Sulfate (Morphine Inj) 2 mg Q3H PRN IV PUSH breakthrough pain Last administered on 03/19/17 11:09; Start 03/18/17 at 15:15; Stop 03/19/17 at 13: 39; Status DC Baclofen (Lioresal) 10 mg Q8H PO Last administered on 03/18/17 16:52; Start 03/18/17 at 17:00; Stop 03/19/17 at 13:39; Status DC Morphine Sulfate (Oramorph Sr) 30 mg Q12HR PO Last administered on 03/22/17 08 :15; Start 03/19/17 at 21:00; Stop 03/22/17 at 13:28; Status DC Hydromorphone HCl (Dilaudid Pf Inj) 1 mg Q4H PRN IV PUSH BREAKTHROUGH PAIN Last administered on 03/25/17 01:31; Start 03/19/17 at 13:30 Furosemide (Lasix Inj) 40 mg BID@09,18 IV PUSH Last administered on 03/25/17 09:45; Start 03/19/17 at 18:00 Spironolactone (Aldactone) 25 mg DAILY PO Last administered on 03/25/17 09:45 ; Start 03/19/17 at 15:00 Prednisone (Deltasone) 10 mg DAILY PO Last administered on 03/23/17 07:33; Start 03/20/17 at 09:00; Stop 03/23/17 at 13:33; Status DC Albumin Human 100 ml @ 60 mls/hr Q12H IV Last administered on 03/25/17 09:50 ; Start 03/19/17 at 20:00 Insulin Detemir (Levemir Inj) 17 units BID SQ Last administered on 03/25/17 09 :51; Start 03/21/17 at 09:00 Insulin Aspart (NovoLOG INJ) 7 units TIDAC SQ Last administered on 03/25/17 09 :54; Start 03/21/17 at 08:00 Potassium Chloride (KCl) 20 meq ONCE ONCE PO Last administered on 03/21/17 10 :41; Start 03/21/17 at 10:15; Stop 03/21/17 at 10:16; Status DC Fluconazole (Diflucan) 100 mg DAILY PO Last administered on 03/25/17 09:40; Start 03/21/17 at 10:30 Morphine Sulfate (Msir) 15 mg Q3H PRN PO PAIN SCALE 1 TO 7 Last administered on 03/24/17 04:33; Start 03/21/17 at 11:00 Morphine Sulfate (Msir) 30 mg Q4H PRN PO PAIN SCALE 8 TO 10 Last administered on 03/25/17 06:15; Start 03/21/17 at 11:00 Potassium Chloride (KCl) 20 meq DAILY PO Last administered on 03/25/17 09:44; Start 03/22/17 at 09:00 Morphine Sulfate (Oramorph Sr) 45 mg Q12HR PO Last administered on 03/25/17 09 :43; Start 03/22/17 at 21:00 Gabapentin (Neurontin) 300 mg TID PO Last administered on 03/25/17 09:40; Start 03/24/17 at 09:00 Doxycycline Hyclate (Vibratab) 100 mg Q12H PO Last administered on 03/24/17 23 :52; Start 03/24/17 at 12:00 Gadodiamide (Omniscan Pf Inj) 17 ml STK-MED ONCE IV PUSH Last administered on 03/25/17 09:12; Start 03/25/17 at 09:12; Stop 03/25/17 at 09:13; Status DC Family History mother had lupus and of pneumonia. father had colon cancer and DM. Social History Smoking 6 cigs/day. No ETOH use No illicit drug abuse Physical Exam Vital Signs Vital Signs Date Time Temp Pulse Resp B/P (MAP) Pulse Ox O2 Delivery O2 Flow Rate FiO2 03/25/17 07:47 99.3 100 12 133/73 (93) 94 03/25/17 00:37 99.9 109 18 116/61 (79) 94 03/24/17 20:44 99.2 103 18 150/81 (104) 96 03/24/17 16:00 99.1 98 18 118/76 (90) 100 03/24/17 12:00 99.5 94 19 125/76 (92) 100 Physical Exam The patient is alert, awake and oriented to time, place and person. Speech is fluent. Higher cognitive functions are normal. Cranial nerve examination demonstrates the pupils to be equal, round, and reactive to light. Extra-ocular movements are intact. Facial motor and sensory function are normal and symmetrical. Gross hearing is intact, bilaterally. The uvula is midline and elevates symmetrically with the soft palate. Sternocleidomastoid and trapezius muscles have normal and symmetrical strength. Other cranial nerves are intact. Neck is soft and supple. Cervical spine has a very restricted range of motion in anterior flexion, extension, lateral bending, and rotation without pain. There is no tenderness to palpation to the spinous processes or paraspinal muscles. Muscle testing reveals normal bulk and tone overall without rigidity, spasticity , fasciculations, or atrophy. Muscle strength is 5/5 in all muscle groups of both upper extremities including deltoid, biceps, triceps, brachioradialis, wrist extension and maritime officer. In the lower extremities, strength is 4/5 in both iliopsoas, quadriceps, hamstrings, plantar flexion, dorsiflexion, and extensor hallicus longus. Sensory examination is intact to light touch and sharp/dull discrimination in both upper extremities, and difffusely decreased in his lower extremities Deep tendon reflexes are 1+ and symmetrical in the biceps, triceps, and brachioradialis, bilaterally, in the upper extremities. In the lower extremities , the patellar and Achilles are trace. There is a bilateral plantar flexion response. Hoffmanns sign is negative. There is no clonus Cerebellar examination is intact to [id number] test, rapid rhythmic alternating motion. Laboratory Laboratory Tests Test 03/24/17 12:45 Chlamydia trachomatis DNA (PCR) NOT DETECTED Neisseria gonorrhoeae DNA (PCR) NOT DETECTED Date/Time Source Procedure Growth Status 03/21/17 05:50 Blood Peripheral Aerobic Blood Culture - Preliminary NO GROWTH IN 4 DAYS Resulted 03/21/17 05:50 Blood Peripheral Anaerobic Blood Culture - Preliminary NO GROWTH IN 4 DAYS Resulted 03/19/17 05:15 Urine Clean Catch Urine Culture - Final Chiara Tropicalis Complete Result Diagram: 03/24/17 1005 03/24/17 1005 Imaging Last 48 hours Impressions Lumbar Spine MRI 03/25/17 0000 Signed Impressions: Service Date/Time: Saturday, March 25, 2017 08:45 - CONCLUSION: Discitis at L1-2 with adjacent osteomyelitis. Significant paraspinal and epidural abscess and bilateral psoas abscesses. Moderate degenerative spondylosis throughout the remainder of the lumbar spine with fairly severe canal stenosis at L4-5 and less prominent changes at other levels as described Vishal Osorio MD Lower Extremity Ultrasound 03/24/17 0000 Signed Impressions: Service Date/Time: Friday, March 24, 2017 12:42 - CONCLUSION: Negative for deep venous thrombosis. Parker Way MD FACR Assessment and Plan Assessment and Plan Septic Shock Reassessment Heart: Regular rate and rhythm Lungs: Clear Skin: Warm Peripheral Pulses: Bounding Right Radial Bounding Left Radial Bounding Right Posterior Tibial Bounding Left Posterior Tibial Capillary Refill: Brisk Caprini VTE Risk Assessment Caprini VTE Risk Assessment: No/Low Risk (score <= 1) Caprini Risk Assessment Model Point Value = 1 Point Value = 2 Point Value = 3 Point Value = 5 Age 41-60 Minor surgery BMI > 25 kg/m2 Swollen legs Varicose veins or History of unexplained or recurrent spontaneous Oral contraceptives or hormone replacement Sepsis (< 1 month) Serious lung disease, including pneumonia (< 1 month) Abnormal pulmonary function Acute myocardial infarction Congestive heart failure (< 1 month) History of inflammatory bowel disease Medical patient at bed rest Age 61-74 Arthroscopic surgery Major open surgery (> 45 min) Laparoscopic surgery (> 45 min) Malignancy Confined to bed (> 72 hours) Immobilizing plaster cast Central venous access Age >= 75 History of VTE Family history of VTE Factor V Leiden Prothrombin [id number] Lupus anticoagulant Anticardiolipin antibodies Elevated serum homocysteine Heparin-induced thrombocytopenia Other congenital or acquired thrombophilia Stroke (< 1 month) Elective arthroplasty Hip, pelvis, or leg fracture Acute spinal cord injury (< 1 month) Prophylaxis Regimen Total Risk Factor Score Risk Level Prophylaxis Regimen 0-1 Low Early ambulation 2 Moderate Order ONE of the following: *Sequential Compression Device (SCD) *Heparin 5000 units SQ BID 3-4 Higher Order ONE of the following medications: *Heparin 5000 units SQ TID *Enoxaparin/Lovenox 40 mg SQ daily (WT < 150 kg, CrCl > 30 mL/min) *Enoxaparin/Lovenox 30 mg SQ daily (WT < 150 kg, CrCl > 10-29 mL/min) *Enoxaparin/Lovenox 30 mg SQ BID (WT < 150 kg, CrCl > 30 mL/min) AND/OR *Sequential Compression Device (SCD) 5 or more Highest Order ONE of the following medications: *Heparin 5000 units SQ TID (Preferred with Epidurals) *Enoxaparin/Lovenox 40 mg SQ daily (WT < 150 kg, CrCl > 30 mL/min) *Enoxaparin/Lovenox 30 mg SQ daily (WT < 150 kg, CrCl > 10-29 mL/min) *Enoxaparin/Lovenox 30 mg SQ BID (WT < 150 kg, CrCl > 30 mL/min) AND *Sequential Compression Device (SCD) Attending Statement 66-year-old male admitted secondary to sepsis and colitis/enteritis Spinal epidural abscess L1-2 abscess. Has spinal cord compression. He has weakness and sensory loss in his lower extremities. I recommend an emergency surgical decompression with evacuation of the abscess. Sepsis On IV antibiotivsFollow vital signs closely Bacterial colitis/enteritis Continue Zosyn Continue clindamycin Status post laparotomy 3 weeks ago Hypocalcemia Calcium gluconate provided today Follow calcium levels Replace as needed Cirrhosis Hep C Follow clinically HTN Nothing by mouth for now By mouth treatments held Follow blood pressure As needed IV enalapril COPD No exacerbation Follow clinically Diabetes mellitus type 2 Follow blood sugars Insulin sliding scale Not controlled. Start insulin drip Protonix for prophylaxis of stress ulcer Hx of DVT DVT prophylaxis Kishan stout and SCD's Lovenox Paras Fitzgerald MD Mar 25, 2017 11:25
--- NOTE | 2017-03-25 11:36 | HHI.IDPN ---
Note Infectious Disease Note Patient complains of pain in the left testicle, lower back and wrapping across the abdomen. low grade fever. Nl WBC. No chills. MRI Noted. Blood culture 03/21 and 03/17 - no growth. Prior blood culture on 03/10 - staph aureus and urine culture had staph aureus. 2D ECHO has no vegetations. The patient underwent right colon resection and also small bowel resection for ischemic cecum and fascia and partial ischemia of the distal terminal ileum on 01/29/2017. After the surgery and he also had report of Clostridium perfringens at the margins of the surgical tissue on the pathology specimen. PAST MEDICAL HISTORY: 1. Esophageal varices. 2. Hepatitis C. 3. History of cirrhosis. 4. Recent bowel resection. 5. Diabetes mellitus. 6. History of laparoscopic cholecystectomy. 7. History of back surgery. 8. Neuropathy. 9. Vasectomy. 10. History of bladder cancer. 11. History of bilateral knee surgery. 12. History of banding of esophageal varices. ALLERGIES: 1. PENTAZOCINE. 2. CODEINE. 3. KETORFANOL. 4. IV DYE. 5. IODINATED CONTRAST. ANTIBIOTICS: Oxacillin. fluconazole. SOCIAL HISTORY: No alcohol use. No illicit drugs. FAMILY HISTORY: Noncontributory. OBJECTIVE: Vital Signs Date Time Temp Pulse Resp B/P (MAP) Pulse Ox O2 Delivery O2 Flow Rate FiO2 03/25/17 07:47 99.3 100 12 133/73 (93) 94 03/25/17 00:37 99.9 109 18 116/61 (79) 94 03/24/17 20:44 99.2 103 18 150/81 (104) 96 03/24/17 16:00 99.1 98 18 118/76 (90) 100 03/24/17 12:00 99.5 94 19 125/76 (92) 100 Laboratory Tests Test 03/23/17 13:50 03/24/17 10:05 White Blood Count 9.2 TH/MM3 6.9 TH/MM3 Red Blood Count 2.86 MIL/MM3 3.08 MIL/MM3 Hemoglobin 7.5 GM/DL 8.3 GM/DL Hematocrit 23.6 % 25.4 % Mean Corpuscular Volume 82.3 FL 82.6 FL Mean Corpuscular Hemoglobin 26.3 PG 26.8 PG Mean Corpuscular Hemoglobin Concent 31.9 % 32.5 % Red Cell Distribution Width 17.5 % 17.7 % Platelet Count 223 TH/MM3 182 TH/MM3 Mean Platelet Volume 7.9 FL 8.2 FL Neutrophils (%) (Auto) 71.9 % Lymphocytes (%) (Auto) 14.2 % Monocytes (%) (Auto) 11.5 % Eosinophils (%) (Auto) 1.8 % Basophils (%) (Auto) 0.6 % Neutrophils # (Auto) 5.0 TH/MM3 Lymphocytes # (Auto) 1.0 TH/MM3 Monocytes # (Auto) 0.8 TH/MM3 Eosinophils # (Auto) 0.1 TH/MM3 Basophils # (Auto) 0.0 TH/MM3 CBC Comment DIFF FINAL Differential Comment Laboratory Tests Test 03/23/17 13:50 03/24/17 10:05 Blood Urea Nitrogen 21 MG/DL 19 MG/DL Creatinine 0.76 MG/DL 0.72 MG/DL Random Glucose 258 MG/DL 96 MG/DL Calcium Level 8.2 MG/DL 8.3 MG/DL Sodium Level 134 MEQ/L 137 MEQ/L Potassium Level 3.8 MEQ/L 4.1 MEQ/L Chloride Level 98 MEQ/L 100 MEQ/L Carbon Dioxide Level 29.6 MEQ/L 31.9 MEQ/L Anion Gap 6 MEQ/L 5 MEQ/L Estimat Glomerular Filtration Rate 103 ML/MIN 109 ML/MIN Total Protein 7.9 GM/DL Albumin 2.4 GM/DL Alkaline Phosphatase 88 U/L Aspartate Amino Transf (AST/SGOT) 45 U/L Alanine Aminotransferase (ALT/SGPT) 37 U/L Total Bilirubin 0.5 MG/DL IMAGING: Lumbar Spine MRI 03/25/17 0000 Signed Impressions: Service Date/Time: Saturday, March 25, 2017 08:45 - CONCLUSION: Discitis at L1-2 with adjacent osteomyelitis. Significant paraspinal and epidural abscess and bilateral psoas abscesses. Moderate degenerative spondylosis throughout the remainder of the lumbar spine with fairly severe canal stenosis at L4-5 and less prominent changes at other levels as described Vishal Osorio MD Lower Extremity Ultrasound 03/24/17 0000 Signed Impressions: Service Date/Time: Friday, March 24, 2017 12:42 - CONCLUSION: Negative for deep venous thrombosis. Parker Way MD FACR Abdomen Ultrasound 03/20/17 0000 Signed Impressions: Service Date/Time: March 18:32 - CONCLUSION: 1. 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 2. Less than 50%% stenosis in the superior mesenteric artery. Jase Estes MD Abdomen/Pelvis CT 03/13/17 0000 Signed Impressions: Service Date/Time: February 15:19 - CONCLUSION: 1. Moderate-sized bilateral effusions with consolidative changes. 2. Moderate hepatosplenomegaly. 3. Ascites diffusely throughout the abdomen. 4. Compared to previous the effusions have enlarged. The ascites is new. The liver and spleen are stable in size. Natalio Way MD Chest X-Ray 03/10/17 0000 Signed Impressions: Service Date/Time: Friday, March 10, 2017 12:09 - CONCLUSION: No acute disease. There is no evidence of pneumonia. Jase Estes MD PHYSICAL EXAMINATION: GENERAL: No acute distress. Awake and alert and oriented. HEENT: No icterus. Oropharynx moist mucosa without lesions. NECK: Supple. LUNGS: Clear breath sounds. HEART: Regular S1-S2 without murmurs, rubs or gallops. ABDOMEN: Midline surgical incision appears intact. Positive bowel sounds. Tenderness on palpation of the right lower quadrant. Tenderness at the lower back. : Tenderness at the left testicle. EXTREMITIES: No clubbing, cyanosis or edema. SKIN: No rash. NEUROLOGIC: No gross focal findings. PSYCHIATRIC: Calm and cooperative. IMPRESSION: 1. Bacteremia due to staph aureus. Persistent positive blood cultures. - Discitis and osteomyelitis at L1- L2 and epidural, paraspinal and psoas abscess bilateral. 2. Urinary tract infection due to staph aureus. Probably is the source. However give the persisting blood culture could have another nidus. 3. Abdominal pain of questionable etiology. 4. Fever low grade. 5. Probably epididymitis/orchitis. RECOMMENDATIONS: 1. Continue Oxacillin IV. 2. Monitor blood culture. 3. Continue fluconazole for yeast in urine. Florentino Burnette MD Mar 25, 2017 11:36
[2017-03-25] MEDS ORDERED: PHENYLEPHRINE HCL 10 MG/ML VIAL IV ONE (12:00)
[2017-03-25] MEDS ORDERED: GLYCOPYRROLATE 0.4 MG/2 ML VIAL IV ONE (12:00)
[2017-03-25] MEDS ORDERED: NEOSTIGMINE 3 MG/3 ML SYR IV ONE (12:00)
[2017-03-25] MEDS ORDERED: PHENYLEPH/NS 1000 MCG/10 ML SYR IV ONE (12:00)
[2017-03-25] MEDS ORDERED: LACTATED RINGER'S 1000 ML INJ 1,000 ML IV ONE (12:00)
[2017-03-25] MEDS ORDERED: ROCURONIUM INJ 50 MG/5 ML SYRINGE IV PUSH ONE (12:00)
[2017-03-25] MEDS ORDERED: SUCCINYLCHOLINE CHLORIDE 100 MG/5 ML SYRINGE IV PUSH ONE (12:00)
[2017-03-25] MEDS ORDERED: ESMOLOL HCL 100 MG/10 ML VIAL IV ONE (12:00)
[2017-03-25] MEDS ORDERED: LIDOCAINE HCL 1% PF 5 ML AMPULE OTHER ONE (12:00)
[2017-03-25] MEDS ORDERED: DEXAMETHASONE SOD PHOS 4 MG/ML VIAL IV ONE (12:00)
[2017-03-25] MEDS ORDERED: ONDANSETRON HCL 4 MG/2 ML VIAL IV PUSH ONE (12:00)
[2017-03-25] MEDS ORDERED: MIDAZOLAM HCL 2 MG/2 ML VIAL IV ONE (12:00)
[2017-03-25] MEDS ORDERED: PROPOFOL 200 MG/20 ML AMP IV ONE (12:00)
[2017-03-25] MEDS ORDERED: METOPROLOL TARTRATE 5 MG/5 ML VIAL IV PUSH ONE (12:00)
[2017-03-25 12:11] VITALS: BP 144/80; PULSE 105; RESP 16; TEMP 99.2; O2SAT 100
[2017-03-25] MEDS ORDERED: GELFOAM SIZE 100 ONE (12:11)
[2017-03-25] MEDS ORDERED: BUPIVACAINE/EPINEPHRINE 0.5% 50 ML VIAL ONE (12:11)
[2017-03-25] MEDS ORDERED: THROMBIN (TOPICAL) 5,000 UNIT VIAL ONE (12:11)
[2017-03-25] MEDS ORDERED: GENTAMICIN SULFATE 80 MG/2 ML VIAL ONE (12:11)
[2017-03-25] MEDS ORDERED: INSULIN NovoLIN REGULAR SUPPLEMENTAL SCALE ONE (12:50)
[2017-03-25] MEDS ORDERED: ceFAZolin 2 GM PREMIX 50 ML ONE (13:59)
[2017-03-25] MEDS ORDERED: VANCOMYCIN HCL 1000 MG VIAL ONE (13:59)
[2017-03-25] MEDS ORDERED: PROPOFOL 500 MG/50 ML INJ 0 ML ONE (14:16)
[2017-03-25] MEDS ORDERED: DO NOT ADM ANY ANTICOAGULANT DRUGS PRN (14:54)
[2017-03-25] MEDS ORDERED: *morphine SULFATE 8 MG/ML PERIprocedure ONLY ONE ×2 (15:07→16:03)
--- NOTE | 2017-03-25 15:24 | HHI.PR ---
Subjective Remarks deferred entry - patient seen at 11 am patient still c/o back pain radiating to abdomen and right lower extremity weakness. still having fevers Objective Vitals Vital Signs Date Time Temp Pulse Resp B/P (MAP) Pulse Ox O2 Delivery O2 Flow Rate FiO2 03/25/17 12:11 99.2 105 16 144/80 (101) 100 03/25/17 07:47 99.3 100 12 133/73 (93) 94 03/25/17 00:37 99.9 109 18 116/61 (79) 94 03/24/17 20:44 99.2 103 18 150/81 (104) 96 03/24/17 16:00 99.1 98 18 118/76 (90) 100 I/O 03/24/17 03/24/17 03/24/17 03/25/17 03/25/17 03/25/17 07:00 15:00 23:00 07:00 15:00 23:00 Intake Total 700 ml 300 ml 1150 ml 760 ml 1500 ml Output Total 1500 ml 300 ml Balance 700 ml 300 ml 1150 ml -740 ml 1200 ml Intake Oral 1050 ml 760 ml IV Total 700 ml 300 ml 100 ml 300 ml Other 1200 ml Output Urine Total 1500 ml 300 ml # Voids 6 # Bowel Movements 3 0 Result Diagram: 03/24/17 1005 03/24/17 1005 Imaging Last Impressions Lumbar Spine X-Ray 03/25/17 0000 Signed Impressions: Service Date/Time: Saturday, March 25, 2017 13:17 - CONCLUSION: Instruments overlie the posterior elements at the L1-L2 level. Vishal Oneal MD Lumbar Spine MRI 03/25/17 0000 Signed Impressions: Service Date/Time: Saturday, March 25, 2017 08:45 - CONCLUSION: Discitis at L1-2 with adjacent osteomyelitis. Significant paraspinal and epidural abscess and bilateral psoas abscesses. Moderate degenerative spondylosis throughout the remainder of the lumbar spine with fairly severe canal stenosis at L4-5 and less prominent changes at other levels as described Vishal Osorio MD Lower Extremity Ultrasound 03/24/17 0000 Signed Impressions: Service Date/Time: Friday, March 24, 2017 12:42 - CONCLUSION: Negative for deep venous thrombosis. Parker Way MD FACR Scrotum Ultrasound 03/23/17 0000 Signed Impressions: Service Date/Time: Thursday, March 23, 2017 12:04 - CONCLUSION: Bilateral testicular atrophy. No torsion, inflammatory changes or other acute abnormality seen. Vishal Cevallos MD Abdomen Ultrasound 03/21/17 0000 Signed Impressions: Service Date/Time: Tuesday, March 21, 2017 15:29 - CONCLUSION: Only trace ascites which is inadequate for paracentesis. Michael Philip MD Abdomen/Pelvis CT 03/13/17 0000 Signed Impressions: Service Date/Time: February 15:19 - CONCLUSION: 1. Moderate-sized bilateral effusions with consolidative changes. 2. Moderate hepatosplenomegaly. 3. Ascites diffusely throughout the abdomen. 4. Compared to previous the effusions have enlarged. The ascites is new. The liver and spleen are stable in size. Natalio Way MD Chest X-Ray 03/10/17 0000 Signed Impressions: Service Date/Time: Friday, March 10, 2017 12:09 - CONCLUSION: No acute disease. There is no evidence of pneumonia. Jase Estes MD Objective Remarks AAOx3, moderate distress due to pain Clear lungs BL Abdomen very tender diffusely but tenderness more prominent on left upper quadrant and right lower quadrant. Lungs are clear but diminished auscultation bilaterally no edema in lower extremities 3/5 right lower extremity weakness tenderness to palpation of lumbar spine Procedures None A/P Problem List: (1) Staphylococcus aureus bacteremia with sepsis ICD Code: A41.01 - Sepsis due to Methicillin susceptible Staphylococcus aureus Status: Acute (2) Liver cirrhosis ICD Code: K74.60 - Unspecified cirrhosis of liver (3) Uncontrolled hypertension ICD Code: I10 - Essential (primary) hypertension (4) COPD (chronic obstructive pulmonary disease) ICD Code: J44.9 - Chronic obstructive pulmonary disease, unspecified (5) Diabetes mellitus with hyperglycemia ICD Code: E11.65 - Type 2 diabetes mellitus with hyperglycemia Status: Chronic (6) Pleural effusion ICD Code: J90 - Pleural effusion, not elsewhere classified (7) Hyponatremia ICD Code: E87.1 - Hypo-osmolality and hyponatremia (8) Ascites of liver ICD Code: R18.8 - Other ascites Status: Chronic (9) Anemia ICD Code: D64.9 - Anemia, unspecified Status: Chronic (10) Anasarca ICD Code: R60.1 - Generalized edema Status: Acute (11) Abdominal pain ICD Code: R10.9 - Unspecified abdominal pain Status: Acute (12) Testicular pain, left ICD Code: N50.812 - Left testicular pain Status: Acute Plan: Testicular ultrasound showed bilateral testicular atrophy. No distortion , inflammatory changes or other acute abnormality seen. I will start the patient on oral doxycycline 100 minutes by mouth twice a day for 7 days to treat the patient empirically for epididymitis. I will also send urine GC/ chlamydia PCR. 03/25 Chlamydia, (13) UTI (urinary tract infection) ICD Code: N39.0 - Urinary tract infection, site not specified Status: Acute Plan: Urine culture dated 03/10/17 grew MSSA. Antibiotics as per ID. (14) Back pain ICD Code: M54.9 - Dorsalgia, unspecified Status: Acute Plan: Patient complains of lumbar spine pain, on exam patient has tenderness to palpation of lumbar spine and right lower extremity weakness. I will order a lumbar spine MRI to rule out infectious processes in the lumbar spine. 03/25 Lumbar spine mri shows discitis, osteomyelitis, epidural abscess, and bilateral psoas abscess. Placed a stat neurosurgery consultation, discussed the case with Dr Amilcar Richardson's assistant community manager who reviewed MRI and discussed the case with him and said patient needs to have surgery. Will place the patient npo and bed rest. (15) Low grade fever ICD Code: R50.9 - Fever, unspecified Status: Acute Plan: The patient is still having low-grade fevers. Likely due to lumbar discitis osteomyelitis, epidural and psoas abscess. (16) Bilateral leg edema ICD Code: R60.0 - Localized edema Status: Acute Plan: Improving with diuretics. Likely due to anasarca. However given persistence of low-grade fevers I will order a venous Doppler to rule out DVT. 03/25 venous dopplers negative. (17) Discitis of lumbar region ICD Code: M46.46 - Discitis, unspecified, lumbar region Status: Acute Plan: Antibiotics as per ID. Neurosurgery consulted. Patient for OR today. (18) Epidural abscess ICD Code: G06.2 - Extradural and subdural abscess, unspecified Status: Acute Plan: As Above (19) Osteomyelitis of vertebra of lumbosacral region ICD Code: M46.27 - Osteomyelitis of vertebra, lumbosacral region Status: Acute Plan: As Above. (20) Psoas abscess ICD Code: K68.12 - Psoas muscle abscess Status: Acute Plan: As Above. Assessment and Plan (1) Staphylococcus aureus bacteremia with sepsis Plan: The patient was admitted to the medical floor, treated with IV antibiotics, infectious disease consulted. Source likely the urine since urine culture is growing MSSA. Continue IV antibiotics as per infectious disease recommendations. The patient is currently on oxacillin 2 g IV every 4 hours. 03/24 The patient has been started on fluconazole for yeast urine on 03/21. Continue antibiotics as per ID recommendations. The patient currently on oxacillin 2 g IV every 4 hours. Continue to monitor blood cultures which have been negative since 03/17. The patient however still having low-grade fevers. I will start the patient on oral doxycycline for left testicular pain and suspected epididymitis. (2) Liver cirrhosis Abdomen and pelvis CT performed on 03/13/17 show moderate-sized bilateral pleural effusions with consolidative changes. Moderate hepatosplenomegaly. Ascites diffusely throughout the abdomen which compared to a previous CT abdomen and pelvis obtained on 03/10/17 was increased. There is a report of more prominent portal vein and interval enlargement of the spleen which measures 17.7 cm, findings consistent with increasing portal hypertension. Ultrasound-guided abdominal paracentesis was ordered, however there is not enough fluid for the procedure to be done. Continue treatment with diuretics with Lasix 40 mg IV twice a day and spironolactone 100 mg by mouth daily. GI following. (3) Uncontrolled hypertension Plan: Blood pressure initially uncontrolled. Better controlled after dose of lisinopril increased. Continue to monitor bp and continue lisinopril. (4) COPD (chronic obstructive pulmonary disease) Plan: COPD seems to be on prednisone for COPD which seems to be stable. Continue prednisone taper. (5) Diabetes mellitus with hyperglycemia Plan: Blood sugars are still labile. Continue basal bolus therapy with insulin Levemir and prandial insulin NovoLog. Place on diabetic diet and high NovoLog insulin scale. Continue to monitor Accu-Cheks. (6) Pleural effusion Plan: Pleural effusion likely overload and diastolic congestive heart failure secondary to liver cirrhosis. Echocardiogram done today shows a normal systolic function with an EF in the range of 55-60%. Wall thickness measure at the upper limits of normal. Continue with diuretics. (7) Hyponatremia Plan: Suspect combination of hypervolemic hyponatremia and pseudo- hyperglycemia given uncontrolled blood sugars. Continue with Lasix and spironolactone as well as blood sugar control. (8) Ascites of liver Plan: With diuretics as stated above. 03/20 appreciate GI recommendations. Abdominal paracentesis ordered. CTA abdomen cannot be done due to contrast dye allergy. 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 Less than 50% stenosis. Mesenteric artery. 03/22 vascular surgery recommendations appreciated. Discussed the case with Dr. Gurrola states that abdominal pain is not coming from this finding. Recommended outpatient treatment with pain vehicle controls engineer. (9) Anemia Plan: Anemia seems to be chronic, hemoglobin seems to be trending down. Recent previous records reviewed on January 2017 show that the patient's hemoglobin was near normal. I will check iron studies and stool guaiac. 03/20 stool guaiac pending. Iron low, ferrtitn normal - TIBC and percent saturation not done. will order for am. 03/22 stool guaiac still not done. (10) Anasarca Plan: Patient with increasing bilateral pleural effusions, ascites and lower extremity edema. Anasarca likely secondary to combination of liver cirrhosis and congestive heart failure. Continue with diuretics. (11) Abdominal pain Plan: Patient complains of abdominal pain especially in the left upper quadrant radiating to the right lower quadrant. Patient has had 2 abdominal [address]s on this admission as described above. Suspect abdominal pain is likely secondary from ascites and hepatosplenomegaly. 03/20 Gastroenterology recommendations appreciated. For abdominal paracentesis to r/o sbp, US abdomen ordered to r/o mesenteric ischemia. Continue pain control with Oramorph SR, Dilaudid as needed for breakthrough pain. 03/21 abdominal paracentesis reordered, however I got a call from the quality assurance qa lab technician stating that after radiologist reviewed the ultrasound of the abdomen today then there is no longer marked ascites to safely obtain fluid for a diagnostic paracentesis. I will also continue Oramorph SR at 30 mg by mouth twice a day, will add morphine IR for pain control and continue Dilaudid. 03/22 the patient states that his pain still very uncontrolled I will increase the dose of Oramorph SR, continue morphine IR for pain control and continue Dilaudid IV for breakthrough pain. 05/23 pain better controlled. Continue Oramorph SR 45 mg subcutaneous twice a day with morphine IR and Dilaudid for breakthrough pain. GI Prophylaxis: Continue PPI. VT prophylaxis: Lovenox held secondary to drop in hemoglobin which could've been dilutional secondary to hypervolemia, I will resume Lovenox subcutaneous. Discharge Planning Continue to monitor in the medical floor. The patient is still having low- grade fevers, pending lumbar spine MRI and having testicular pain - started on doxycycline. Problem Qualifiers (1) COPD (chronic obstructive pulmonary disease): Qualified Codes: J42 - Unspecified chronic bronchitis (2) Diabetes mellitus with hyperglycemia: Qualified Codes: E11.65 - Type 2 diabetes mellitus with hyperglycemia; Z79.4 - senior care (current) use of insulin (3) Anemia: Qualified Codes: D64.9 - Anemia, unspecified David Braswell MD Mar 25, 2017 15:24
[2017-03-25] MEDS: NS + KCL 20 MEQ INJ 1,000 ML IV SCH (15:31)
--- NOTE | 2017-03-25 15:42 | PD.OP ---
Operative Report Date of Surgery: Mar 25, 2017 Preoperative Diagnosis: Lumbar epidural abscess Postoperative Diagnosis: Lumbar epidural abscess Procedure: L1-2 laminectomy, evacuation of lumbar spinal epidural abscess Anesthesia: general Surgeon: Paras Fitzgerald Physicist Nuclear(s): Anne Wilson Operation and Findings: INDICATIONS FOR THE PROCEDURE Mr Parks is a 67 year old male who presented with intractable neck pain and clinical evidence of lower extremity radiculopathy with severe lower extremity weakness. MRI of the lumbar spine showed a significant epidural abscess at L1- L2 with compression of the neural structures. A surgical decompression was indicated. The [id number] details of the procedure, indications, alternatives, risks and potential complications were fully discussed with the patient. The patient fully understood. All her questions were answered. No guarantees were given. She voiced requesting the procedure and provided informed consents. The patient was offered the alternative of delaying the procedure and continuing with nonsurgical management. DETAILS OF THE PROCEDURE After the induction of general anesthesia, endotracheal intubation was performed. A Morelos catheter, bilateral FANNY hose and sequential compression devices were placed and kept throughout the procedure. The patient was positioned prone on a Rico table over a Reyes frame. All pressure points were carefully padded with eggcrate mattress. The eyes were tapped shut after ointment was applied by the anesthesiologist to prevent corneal abrasion. A Silvia hugger was placed over the exposed lower body to maintain control of the core body temperature. The lower lumbar region was prepped and draped in the usual sterile fashion. A spinal needle was placed for localization and an x- ray performed with a C-arm. A skin incision was made in the midline over the spinous processes L1-L2 with a #10 blade. Small subcutaneous bleeders were controlled with a bipolar and the dissection was carried out through the lumbar fascia exposing the spinous processes. A subperiosteal dissection was performed with a Peralta elevator and a Bovie over the L1-L2 spinous process lamina and facets. A microdiscectomy self- retaining retractor was placed on the incision and an x-ray was obtained with an instrument placed underneath the lamina. Once the level was confirmed, a bilateral decompressive laminectomy was performed at L1-L2 using the TPS drill with an AM-8 drill bit. A medial facetectomy was performed and the superior free border of the ligamentum flavum was dissected with a ligament dissector and removed with a thin footplate 2 mm Kerrison. Upon elevation of the ligamentum Flavum, a cludy, purulent collection was evacuated.Specimen was sent to the lab for aerobic and anaerobic cultures, Gram staion AFB, and fungus cultures. A medial facetectomy was complete and the right L2 nerve root was identified and followed towards its exit in the foramen. Under the operative microscopic, the dural sac was carefully retracted and a set of these cultures was obtained. there was severe scarring with lots of abnormal granulation tissue. These were carefully dissected with microsurgical instruments and microsurgical dissection technique. A pocket of purulent material, consistent with a flegmon, was found and further specimens were sent to the lab for tissue culture and histopathology. The dural sac was carefully retracted and further debridement was carried out. A discectomy was done in the standard fashion, and Further cultures were sent to the lab for aerobic and anaerobic cultures, Gram staion AFB, and fungus cultures. At this point, the patient received IV antibiotics and the incision was thoroughly and copiously irrigated with double basic ortho antibiotic solution. A Rico Noble drain was left in the epidural space, tunneled and and externalized through a separate stab insicion. The incision was then closed with layers. 0-Vicryl interrupted sutures were used to close the thoracolumbar fascia and superficial fascia. The subcutaneous tissue was approximated with 3-0 Vicryl sutures. The skin pack open with a wound vac At the end of the procedure, the sponge, needle and instrument counts were all correct. The estimated blood loss was less than 100 cc. No intraoperative complications occurred. The patient received prophylactic antibiotics. The patient was then extubated and transferred to the recovery room in stable condition. ESTIMATED BLOOD LOSS: Less than 100 cc. No complications. Paras Fitzgerald MD Mar 25, 2017 15:42
[2017-03-25] MEDS ORDERED: SODIUM CHLORIDE 0.9% FLUSH 5 ML FLUSH IVF PRN (15:45)
[2017-03-25] MEDS ORDERED: ACETAMINOPHEN/HYDROcodone 325 MG/10 MG TAB PO PRN (15:45)
[2017-03-25] MEDS ORDERED: MORPHINE SULFATE 4 MG/ML INJ IV PUSH PRN (15:45)
[2017-03-25] MEDS ORDERED: ACETAMINOPHEN 325 MG TAB PO PRN (15:45)
[2017-03-25] MEDS ORDERED: DEXTROSE 50% IN WATER 50 ML VIAL(D50) IV PUSH PRN (16:00)
[2017-03-25] MEDS: ENOXAPARIN SODIUM 40 MG/0.4 ML SYRINGE SQ SCH (16:00)
[2017-03-25] MEDS ORDERED: INSULIN REGULAR 100 UNITS/100 ML NS ALGORITHM 2 IV PRN ×2 (16:00)
[2017-03-25] MEDS ORDERED: *HYDROmorphone PF 1 MG VIAL PERIprocedural Use ONLY ONE (16:49)
--- NOTE | 2017-03-25 16:51 | RADRPT ---
EXAM DATE/TIME: 03/25/2017 13:17 [facility] COMPARISON: No previous studies available for comparison. INDICATIONS : Level Localization L1,L2 for epidural abscess. MEDICAL HISTORY : Carcinoma, bladder. Cardiovascular disease. Hypertension. Hepatitis C.Liver disease. SURGICAL HISTORY : Splenectomy. Appendectomy.Cholecystectomy.Colon resection. ENCOUNTER: Subsequent ACUITY: 4 - 6 days PAIN SCORE: Non-responsive. LOCATION: Lumbar spine. FINDINGS: 2 lateral spot fluoroscopic images of the lumbar spine obtained in the operating room during a proced ure demonstrates the more superior grouping of instruments overlying the posterior elements at the L1 -L2 level. CONCLUSION: Instruments overlie the posterior elements at the L1-L2 level. Vishal Oneal MD on March 25, 2017 at 16:48 Board Certified Radiologist. This report was verified electronically.
[2017-03-25] MEDS: DEXTROSE 50% IN WATER 50 ML VIAL(D50) IV PUSH PRN ×3 (17:00→22:35)
[2017-03-25] MEDS ORDERED: HYDROmorphone HCL PCA 6 MG/30 ML IV ONE (17:22)
[2017-03-25] MEDS ORDERED: FUROSEMIDE 20 MG/2 ML VIAL ONE ×2 (17:49→17:50)
[2017-03-25] MEDS ORDERED: *ONDANSETRON 4 MG VIAL PERIprocedural Use ONLY ONE (18:14)
[2017-03-25] MEDS ORDERED: LORazepam 2 MG/ML VIAL IV PUSH ONE (18:26)
[2017-03-25] MEDS ORDERED: LORazepam 2 MG/ML VIAL ONE (18:26)
[2017-03-25] MEDS ORDERED: LORazepam 2 MG/ML VIAL IV PUSH PRN (19:15)
[2017-03-25 20:40] VITALS: BP 92/51; PULSE 95; RESP 21; TEMP 99.1; O2SAT 94
[2017-03-25] MEDS: DOCUSATE SODIUM 100 MG CAP PO SCH (21:00)
[2017-03-25] MEDS: SODIUM CHLORIDE 0.9% FLUSH 5 ML FLUSH IVF SCH (21:00)
[2017-03-25] MEDS ORDERED: NALOXONE HCL 0.4 MG/ML AMP IV PUSH PRN (21:00)
[2017-03-25] MEDS: ceFAZolin 2 GM PREMIX 50 ML IV SCH (21:00)
[2017-03-25] MEDS: PCA - TOTAL MG DILAUDID DELIVERED PER SHIFT SCH (22:00)
[2017-03-25] MEDS ORDERED: DEXTROSE 5% IN WATE 1000ML INJ 1,000 ML IV SCH (22:45)
[2017-03-26] VITALS (14 sets, daily range): BP systolic 97–117; BP diastolic 53–67; PULSE 101–113; RESP 18–22; TEMP 98.1–100.7; O2SAT 94–100
[2017-03-26] MEDS: DOXYCYCLINE HYCLATE 100 MG TAB PO SCH ×3 (00:45→15:10)
[2017-03-26] MEDS: NS + KCL 20 MEQ INJ 1,000 ML IV SCH ×3 (01:31→21:12)
[2017-03-26] MEDS: OXACILLIN INJ 2 GM in SODIUM CHLORIDE 0.9% INJ 100 ML IV SCH ×6 (03:12→21:11)
[2017-03-26] MEDS: INSULIN ASPART SUPPLEMENTAL SCALE SQ SCH ×6 (04:00→20:00)
[2017-03-26] MEDS: ceFAZolin 2 GM PREMIX 50 ML IV SCH ×2 (05:07→13:42)
[2017-03-26] MEDS: PCA - TOTAL MG DILAUDID DELIVERED PER SHIFT SCH ×3 (05:41→22:00)
[2017-03-26] MEDS: INSULIN ASPART 1,000 UNITS/10 ML VIAL SQ SCH ×3 (08:00→18:17)
[2017-03-26 08:28] LABS: AUTOMATED NEUTROPHIL # 9.5 TH/MM3 (1.8-7.7); BASOPHIL % 0.4 % (0.0-2.0); EOSINOPHIL # 0.1 TH/MM3 (0-0.4); EOSINOPHIL % 0.6 % (0.0-4.0); LYMPH % 9.2 % (9.0-44.0); LYMPHOCYTE # 1.1 TH/MM3 (1.0-4.8); MEAN CORPUSCULAR HEMOGLOBIN 26.2 PG (27.0-34.0); MEAN CORPUSCULAR HGB CONC 32.4 % (32.0-36.0); MONO % 8.6 % (0.0-8.0); NEUT % 81.2 % (16.0-70.0); PLATELET COUNT 192 TH/MM3 (150-450); RED BLOOD COUNT 2.42 MIL/MM3 (4.50-5.90); RED CELL DISTRIBUTION WIDTH 18.1 % (11.6-17.2); WHITE BLOOD COUNT 11.7 TH/MM3 (4.0-11.0)
[2017-03-26 08:32] LABS: HEMO FLAGS DIFF FINAL
[2017-03-26 08:36] LABS: HEMATOCRIT 19.6 % (39.0-51.0)
[2017-03-26] MEDS: LISINOPRIL 20 MG TAB PO SCH (09:00)
[2017-03-26] MEDS: BUDESONIDE-FORMOTEROL 160/4.5 MCG INHALER INH SCH ×2 (09:00→21:12)
[2017-03-26] MEDS: SODIUM CHLORIDE 0.9% FLUSH 5 ML FLUSH IVF SCH ×2 (09:00→21:00)
[2017-03-26] MEDS: MULTIVITAMIN HEMATINIC THERAPEUTIC TAB PO SCH (09:00)
[2017-03-26] MEDS: MORPHINE SULFATE 4 MG/ML INJ IV PUSH PRN (09:02)
[2017-03-26] MEDS: HYDROmorphone HCL PCA 6 MG/30 ML IV SCH ×2 (09:09→17:08)
[2017-03-26] MEDS: ALBUMIN 25% INJ 100 ML IV SCH ×2 (09:13→21:08)
[2017-03-26] MEDS: INSULIN DETEMIR 100 UNITS/ML VIAL SQ SCH ×2 (09:14→21:00)
[2017-03-26] MEDS: GABAPENTIN 300 MG CAP PO SCH ×3 (09:16→18:16)
[2017-03-26] MEDS: POTASSIUM CHLORIDE 20 MEQ CONTROLLED RELEASE TAB PO SCH (09:16)
[2017-03-26] MEDS: MORPHINE SULFATE 15 MG CONTROLLED RELEASE TAB PO SCH ×3 (09:17→21:10)
[2017-03-26] MEDS: PANTOPRAZOLE SOD 40 MG DELAYED RELEASE TAB PO SCH (09:17)
[2017-03-26] MEDS: SPIRONOLACTONE 25 MG TAB PO SCH (09:17)
[2017-03-26] MEDS: FAMOTIDINE 20 MG TAB PO SCH ×2 (09:17→21:09)
[2017-03-26] MEDS: FLUCONAZOLE 100 MG TAB PO SCH (09:20)
[2017-03-26] MEDS: ASCORBIC ACID 500 MG TAB PO SCH (09:20)
[2017-03-26] MEDS: DOCUSATE SODIUM 100 MG CAP PO SCH ×2 (09:20→21:08)
--- NOTE | 2017-03-26 09:50 | HHI.PR ---
Subjective Remarks The patient was complaining of a lot of pain. He said that he would be willing to get a blood transfusion if needed. He said that he was waiting to get a brace from neurosurgery. He said he has not been sleeping. He has been having bowel movements. He has been eating. Objective Vitals Vital Signs Date Time Temp Pulse Resp B/P (MAP) Pulse Ox O2 Delivery O2 Flow Rate FiO2 03/26/17 09:09 21 03/26/17 08:00 98.1 101 18 106/65 (79) 96 03/26/17 05:13 108 03/26/17 00:45 100.6 107 20 106/56 (73) 94 03/26/17 00:17 109 03/26/17 00:00 99.4 19 99/54 (69) 98 03/25/17 20:40 99.1 95 21 92/51 (65) 94 03/25/17 19:00 104 24 106/59 (75) 100 Room Air 03/25/17 18:00 102 27 114/62 (79) 99 Room Air 03/25/17 17:22 12 03/25/17 17:19 17 03/25/17 17:00 95 28 126/64 (84) 99 Room Air 03/25/17 16:30 91 22 108/65 (79) 96 Room Air 03/25/17 16:08 17 03/25/17 16:00 93 17 102/64 (77) 96 Room Air 03/25/17 15:45 90 18 90/52 (65) 95 Room Air 03/25/17 15:30 86 19 96/55 (69) 98 Room Air 03/25/17 15:15 85 19 96/57 (70) 98 Room Air 03/25/17 15:12 15 03/25/17 14:55 98.2 86 19 119/66 (83) 98 Room Air 03/25/17 12:11 99.2 105 16 144/80 (101) 100 I/O 03/25/17 03/25/17 03/25/17 03/26/17 03/26/17 03/26/17 07:00 15:00 23:00 07:00 15:00 23:00 Intake Total 760 ml 1500 ml 790 ml 814 ml Output Total 1500 ml 300 ml 3800 ml 25 ml Balance -740 ml 1200 ml -3010 ml 789 ml Intake Oral 760 ml 0 ml 200 ml IV Total 300 ml 790 ml 614 ml Other 1200 ml Output Urine Total 1500 ml 300 ml 3750 ml Drainage Total 50 ml 25 ml # Bowel Movements 0 0 Result Diagram: 03/26/17 0731 03/25/17 2255 Imaging Last Impressions Lumbar Spine X-Ray 03/25/17 0000 Signed Impressions: Service Date/Time: Saturday, March 25, 2017 13:17 - CONCLUSION: Instruments overlie the posterior elements at the L1-L2 level. Vishal Oneal MD Lumbar Spine MRI 03/25/17 0000 Signed Impressions: Service Date/Time: Saturday, March 25, 2017 08:45 - CONCLUSION: Discitis at L1-2 with adjacent osteomyelitis. Significant paraspinal and epidural abscess and bilateral psoas abscesses. Moderate degenerative spondylosis throughout the remainder of the lumbar spine with fairly severe canal stenosis at L4-5 and less prominent changes at other levels as described Vishal Osorio MD Lower Extremity Ultrasound 03/24/17 0000 Signed Impressions: Service Date/Time: Friday, March 24, 2017 12:42 - CONCLUSION: Negative for deep venous thrombosis. Parker Way MD FACR Scrotum Ultrasound 03/23/17 0000 Signed Impressions: Service Date/Time: Thursday, March 23, 2017 12:04 - CONCLUSION: Bilateral testicular atrophy. No torsion, inflammatory changes or other acute abnormality seen. Vishal Cevallos MD Abdomen Ultrasound 03/21/17 0000 Signed Impressions: Service Date/Time: Tuesday, March 21, 2017 15:29 - CONCLUSION: Only trace ascites which is inadequate for paracentesis. Michael Philip MD Abdomen/Pelvis CT 03/13/17 0000 Signed Impressions: Service Date/Time: February 15:19 - CONCLUSION: 1. Moderate-sized bilateral effusions with consolidative changes. 2. Moderate hepatosplenomegaly. 3. Ascites diffusely throughout the abdomen. 4. Compared to previous the effusions have enlarged. The ascites is new. The liver and spleen are stable in size. Natalio Way MD Chest X-Ray 03/10/17 0000 Signed Impressions: Service Date/Time: Friday, March 10, 2017 12:09 - CONCLUSION: No acute disease. There is no evidence of pneumonia. Jsae Estes MD Objective Remarks GENERAL: Appears uncomfortable. SKIN: No rashes, warm and dry HEAD: Atraumatic. Normocephalic. EYES: Pupils equal round and reactive. Extraocular motions intact. No scleral icterus. ENT: Nose without bleeding, or drainage, Airway patent. NECK: Trachea midline. Supple CARDIOVASCULAR: Tachycardic. RESPIRATORY: Fair air entry bilaterally. No wheezes, rales, or rhonchi. GASTROINTESTINAL: Abdomen soft, tender in the lower quadrants, nondistended. Positive bowel sounds MUSCULOSKELETAL: +2 edema in the lower extremity. NEUROLOGICAL: Awake and alert. Moves all extremity. Normal speech. No focal neurological deficit. PSYCH: Mood and affect appropriate. Procedures L1-2 laminectomy, evacuation of lumbar spinal epidural abscess 03/25 Medications and IVs Current Medications Medications (Trade) Dose Ordered Sig/Jaya Route Start Time Stop Time Status Last Admin (Zofran Inj) 4 mg Q6H PRN IVP 03/10/17 14:30 03/15/17 15:00 (Lovenox Inj) 40 mg Q24H SQ 03/10/17 16:00 03/24/17 14:48 (Narcan Inj) 0.4 mg UNSCH PRN IV PUSH 03/10/17 14:30 (Duoneb Neb) 1 ampule Q2HR NEB PRN NEB 03/10/17 14:30 (Symbicort 160-4.5 Inh) 1 puff Q12HR INH 03/10/17 21:00 03/25/17 09:00 (D50w (Vial) Inj) 50 ml UNSCH PRN IV PUSH 03/11/17 17:15 03/25/17 22:35 (Glucagon Inj) 1 mg UNSCH PRN OTHER 03/11/17 17:15 (Vasotec Inj) 1.25 mg Q6H PRN IV PUSH 03/11/17 17:15 (Pepcid) 20 mg BID PO 03/13/17 21:00 03/26/17 09:17 (Imodium) 2 mg Q4H PRN PO 03/14/17 10:00 03/15/17 15:08 (Theragran Hematinic) 1 tab DAILY PO 03/15/17 09:00 03/25/17 09:44 (Vitamin C) 1,000 mg DAILY PO 03/15/17 09:00 03/26/17 09:20 Patient Own Medication (Linagliptin (Tradjenta) 5 MG DAILY PO 03/17/17 10:00 Future Hold (Prinivil) 40 mg DAILY PO 03/19/17 09:00 03/25/17 09:00 Oxacillin Sodium 2 gm/Sodium Chloride 100 ml @ 200 mls/hr Q4H IV 03/18/17 17:00 03/26/17 09:14 (Lasix Inj) 40 mg BID@,18 IV PUSH 03/19/17 18:00 03/25/17 17:57 (Aldactone) 25 mg DAILY PO 03/19/17 15:00 03/26/17 09:17 Albumin Human 100 ml @ 60 mls/hr Q12H IV 03/19/17 20:00 03/26/17 09:13 (Levemir Inj) 17 units BID SQ 03/21/17 09:00 03/26/17 09:14 (NovoLOG INJ) 7 units TIDAC SQ 03/21/17 08:00 03/25/17 09:54 (Diflucan) 100 mg DAILY PO 03/21/17 10:30 03/26/17 09:20 (KCl) 20 meq DAILY PO 03/22/17 09:00 03/26/17 09:16 (Oramorph Sr) 45 mg Q12HR PO 03/22/17 21:00 03/26/17 09:17 (Neurontin) 300 mg TID PO 03/24/17 09:00 03/26/17 09:16 (Vibratab) 100 mg Q12H PO 03/24/17 12:00 03/26/17 00:45 Potassium Chloride/Sodium Chloride 1,000 ml @ 100 mls/hr Q10H IV 03/25/17 15:31 03/26/17 05:44 (NS Flush) 2 ml UNSCH PRN IVF 03/25/17 15:45 (NS Flush) 2 ml BID IVF 03/25/17 21:00 03/25/17 21:00 Cefazolin Sodium/ Dextrose 50 ml @ 100 mls/hr Q8H IV 03/25/17 21:00 03/26/17 13:29 03/26/17 05:07 (Colace) 100 mg BID PO 03/25/17 21:00 03/26/17 09:20 (Protonix) 40 mg DAILY PO 03/26/17 09:00 03/26/17 09:17 ([place] 10-325 Mg) 1 tab Q4H PRN PO 03/25/17 15:45 ([place] 10-325 Mg) 2 tab Q4H PRN PO 03/25/17 15:45 (Morphine Inj) 2 mg Q2H PRN IV PUSH 03/25/17 15:45 (Morphine Inj) 4 mg Q2H PRN IV PUSH 03/25/17 15:45 03/26/17 09:02 (Tylenol) 650 mg Q4H PRN PO 03/25/17 15:45 Miscellaneous Information ALL NURSING DEPARTME... UNSCH PRN .XX 03/25/17 14:54 03/26/17 14:53 (NovoLOG SUPPLEMENTAL SCALE) 1 Q4HR SQ 03/25/17 20:00 03/26/17 09:15 (Dilaudid EMBOSSING TOOL SETTER Inj) 6 mg UNSCH IV 03/25/17 21:15 03/26/17 09:09 EMBOSSING TOOL SETTER Dosage Infused (Pha) 1 Q8HR .XX 03/25/17 22:00 03/26/17 05:41 (Narcan Inj) 0.4 mg UNSCH PRN IV PUSH 03/25/17 21:00 A/P Problem List: (1) Staphylococcus aureus bacteremia with sepsis ICD Code: A41.01 - Sepsis due to Methicillin susceptible Staphylococcus aureus Status: Acute (2) Liver cirrhosis ICD Code: K74.60 - Unspecified cirrhosis of liver (3) Uncontrolled hypertension ICD Code: I10 - Essential (primary) hypertension (4) COPD (chronic obstructive pulmonary disease) ICD Code: J44.9 - Chronic obstructive pulmonary disease, unspecified (5) Diabetes mellitus with hyperglycemia ICD Code: E11.65 - Type 2 diabetes mellitus with hyperglycemia Status: Chronic (6) Pleural effusion ICD Code: J90 - Pleural effusion, not elsewhere classified (7) Hyponatremia ICD Code: E87.1 - Hypo-osmolality and hyponatremia (8) Ascites of liver ICD Code: R18.8 - Other ascites Status: Chronic (9) Anemia ICD Code: D64.9 - Anemia, unspecified Status: Chronic (10) Anasarca ICD Code: R60.1 - Generalized edema Status: Acute (11) Abdominal pain ICD Code: R10.9 - Unspecified abdominal pain Status: Acute (12) Testicular pain, left ICD Code: N50.812 - Left testicular pain Status: Acute (13) UTI (urinary tract infection) ICD Code: N39.0 - Urinary tract infection, site not specified Status: Acute (14) Back pain ICD Code: M54.9 - Dorsalgia, unspecified Status: Acute (15) Low grade fever ICD Code: R50.9 - Fever, unspecified Status: Acute (16) Bilateral leg edema ICD Code: R60.0 - Localized edema Status: Acute (17) Discitis of lumbar region ICD Code: M46.46 - Discitis, unspecified, lumbar region Status: Acute (18) Epidural abscess ICD Code: G06.2 - Extradural and subdural abscess, unspecified Status: Acute (19) Osteomyelitis of vertebra of lumbosacral region ICD Code: M46.27 - Osteomyelitis of vertebra, lumbosacral region Status: Acute (20) Psoas abscess ICD Code: K68.12 - Psoas muscle abscess Status: Acute Assessment and Plan Discitis/ osteomyelitis/ epidural abscess/ bilateral psoas abscess Patient complains of lumbar spine pain, on exam patient has tenderness to palpation of lumbar spine and right lower extremity weakness. 03/25 Lumbar spine mri shows discitis, osteomyelitis, epidural abscess, and bilateral psoas abscess. Placed a stat neurosurgery consultation, discussed the case with Dr Amilcar Richardson's assistant store manager operations who reviewed MRI and discussed the case with him and said patient needs to have surgery. S/p L1-2 laminectomy, evacuation of lumbar spinal epidural abscess 03/25. - follow up with neurosurgery. - pain control. - PT. - antibiotics per ID. Staphylococcus aureus bacteremia with sepsis The patient was admitted to the medical floor, treated with IV antibiotics, infectious disease consulted. Source likely the urine since urine culture is growing MSSA. - The patient has been started on fluconazole for yeast urine on 03/21. Continue antibiotics as per ID recommendations. The patient currently on oxacillin 2 g IV every 4 hours. - The patient was started on oral doxycycline for left testicular pain and suspected epididymitis. Left testicular pain Testicular ultrasound showed bilateral testicular atrophy. No distortion, inflammatory changes or other acute abnormality seen. GC/chlamydia PCR negative. - started the patient on oral doxycycline 100 mg by mouth twice a day for 7 days to treat the patient empirically for epididymitis. Liver cirrhosis Abdomen and pelvis CT performed on 03/13/17 show moderate-sized bilateral pleural effusions with consolidative changes. Moderate hepatosplenomegaly. Ascites diffusely throughout the abdomen which compared to a previous CT abdomen and pelvis obtained on 03/10/17 was increased. There is a report of more prominent portal vein and interval enlargement of the spleen which measures 17.7 cm, findings consistent with increasing portal hypertension. - Ultrasound-guided abdominal paracentesis was ordered, however there is not enough fluid for the procedure to be done. - Continue treatment with diuretics with Lasix 40 mg PO twice a day and spironolactone 100 mg by mouth daily. GI following. Uncontrolled hypertension Blood pressure initially uncontrolled. Better controlled after dose of lisinopril increased. - Continue to monitor bp and continue lisinopril. COPD (chronic obstructive pulmonary disease On prednisone for COPD which seems to be stable. - s/p prednisone taper. Diabetes mellitus with hyperglycemia Blood sugars are still labile. - Continue basal bolus therapy with insulin Levemir and prandial insulin NovoLog. - Place on diabetic diet and high NovoLog insulin scale. Continue to monitor Accu-Cheks. Pleural effusion Pleural effusion likely overload and diastolic congestive heart failure secondary to liver cirrhosis. Echocardiogram shows a normal systolic function with an EF in the range of 55-60%. Wall thickness measure at the upper limits of normal. - Continue with diuretics. Hyponatremia Suspect combination of hypervolemic hyponatremia and pseudo-hyperglycemia given uncontrolled blood sugars. - Continue with Lasix and spironolactone as well as blood sugar control. Celiac artery stenosis/ Abdominal pain 03/21 ultrasound of the abdomen SMA/celiac Doppler showed a greater than 70% stenosis in the celiac artery. Less than 50% stenosis in the mesenteric artery. Vascular surgery recommendations appreciated. Discussed the case with Dr. Gurrola who states that abdominal pain is not coming from this finding. - Recommended outpatient treatment with pain master control supervisor. Acute blood loss anemia Iron low, ferritin normal. TIBC and percent saturation not done. Ordered. Anemic following surgery. - 1 unit prbc ordered 03/26. Follow CBC and transfuse additional unit if indicated. Anasarca Patient with increasing bilateral pleural effusions, ascites and lower extremity edema. Anasarca likely secondary to combination of liver cirrhosis and congestive heart failure. - Continue with diuretics. GI Prophylaxis: Continue PPI. VT prophylaxis: Lovenox held secondary to anemia Discharge Planning Awaiting improvement Problem Qualifiers (1) COPD (chronic obstructive pulmonary disease): Qualified Codes: J42 - Unspecified chronic bronchitis (2) Diabetes mellitus with hyperglycemia: Qualified Codes: E11.65 - Type 2 diabetes mellitus with hyperglycemia; Z79.4 - nursing home (current) use of insulin (3) Anemia: Qualified Codes: D64.9 - Anemia, unspecified Jase Griffin DO Mar 26, 2017 09:50
--- NOTE | 2017-03-26 10:46 | HHI.NSPN ---
(Shanta Jones) Note Status Status: Progress Note (Shanta Jones) Interval History Interval History Mr. Parks is a 66-year-old male who was admitted secondary to right lower quadrant pain with sepsis. She has a history of a bowel resection approximately 1.5 months ago. There was suspicion of bacterial enteritis or colitis is present in place since his recent surgical site at risk so close monitoring and treatments are initiated. His surgeon has been consulted. Nausea and vomiting was present at time of admit. he is a smoker. history of COPD. Three weeks ago he underwent a laparotomy. He has developed extremely severe pain with radiculopathy in his right lower extremity, and now significant weakness in his legs. No incontinence of stool or urine. MRI L spine showed a large epidural abscess with spinal cord compression. neurosurgical consultation was requested. s/p L1-2 laminectomy with evacuation of lumbar spinal epidural abscess, and placement of wound vac 03/25/1703/26: laying in bed alert. c/o of intractable back pain - has TANNING WHEEL FILLER pump at bedside, stable lower extremity weakness (Shanta Jones) Labs, Micro, & Vital Signs Results Date Time Temp Pulse Resp B/P (MAP) Pulse Ox O2 Delivery O2 Flow Rate FiO2 03/26/17 09:09 21 03/26/17 08:00 98.1 101 18 106/65 (79) 96 03/26/17 05:13 108 03/26/17 00:45 100.6 107 20 106/56 (73) 94 03/26/17 00:17 109 03/26/17 00:00 99.4 19 99/54 (69) 98 03/25/17 20:40 99.1 95 21 92/51 (65) 94 03/25/17 19:00 104 24 106/59 (75) 100 Room Air 03/25/17 18:00 102 27 114/62 (79) 99 Room Air 03/25/17 17:22 12 03/25/17 17:19 17 03/25/17 17:00 95 28 126/64 (84) 99 Room Air 03/25/17 16:30 91 22 108/65 (79) 96 Room Air 03/25/17 16:08 17 03/25/17 16:00 93 17 102/64 (77) 96 Room Air 03/25/17 15:45 90 18 90/52 (65) 95 Room Air 03/25/17 15:30 86 19 96/55 (69) 98 Room Air 03/25/17 15:15 85 19 96/57 (70) 98 Room Air 03/25/17 15:12 15 03/25/17 14:55 98.2 86 19 119/66 (83) 98 Room Air 03/25/17 12:11 99.2 105 16 144/80 (101) 100 Constitutional Vital Signs Date Time Temp Pulse Resp B/P (MAP) Pulse Ox O2 Delivery O2 Flow Rate FiO2 03/26/17 09:09 21 03/26/17 08:00 98.1 101 18 106/65 (79) 96 03/26/17 05:13 108 03/26/17 00:45 100.6 107 20 106/56 (73) 94 03/26/17 00:17 109 03/26/17 00:00 99.4 19 99/54 (69) 98 03/25/17 20:40 99.1 95 21 92/51 (65) 94 03/25/17 19:00 104 24 106/59 (75) 100 Room Air 03/25/17 18:00 102 27 114/62 (79) 99 Room Air 03/25/17 17:22 12 03/25/17 17:19 17 03/25/17 17:00 95 28 126/64 (84) 99 Room Air 03/25/17 16:30 91 22 108/65 (79) 96 Room Air 03/25/17 16:08 17 03/25/17 16:00 93 17 102/64 (77) 96 Room Air 03/25/17 15:45 90 18 90/52 (65) 95 Room Air 03/25/17 15:30 86 19 96/55 (69) 98 Room Air 03/25/17 15:15 85 19 96/57 (70) 98 Room Air 03/25/17 15:12 15 03/25/17 14:55 98.2 86 19 119/66 (83) 98 Room Air 03/25/17 12:11 99.2 105 16 144/80 (101) 100 (Shanta Jones) Review of Systems Musculoskeletal: COMPLAINS OF: Back pain Neurologic: COMPLAINS OF: Localized weakness, Paresthesias (Shanta Jones) Physical Exam Mr. Parks is alert, awake and oriented to time, place and person. Speech is fluent. Follows commands well. Cranial nerve examination: pupils equal. Extra-ocular movements are intact. Facial motor are normal and symmetrical. Neck is soft and supple. Muscle strength: moves upper extremities with good strength. In the lower extremities, strength is 3/5 in both iliopsoas, quadriceps, hamstrings, 4/5 plantar flexion, dorsiflexion. Sensory examination is grossly intact to light touch in both lower extremities, symmetrically. Wound with wound vac in place. (Shanta Jones) Medications Current Medications Current Medications Medications (Trade) Dose Ordered Sig/Jaya Route PRN Reason Start Time Stop Time Status Last Admin Dose Admin Ondansetron HCl (Zofran Inj) 4 mg Q6H PRN IVP NAUSEA OR VOMITING 03/10/17 14:30 03/15/17 15:00 Enoxaparin Sodium (Lovenox Inj) 40 mg Q24H SQ 03/10/17 16:00 03/24/17 14:48 Naloxone HCl (Narcan Inj) 0.4 mg UNSCH PRN IV PUSH SEE LABEL COMMENTS 03/10/17 14:30 Albuterol/ Ipratropium (Duoneb Neb) 1 ampule Q2HR NEB PRN NEB SHORTNESS OF BREATH 03/10/17 14:30 Budesonide/ Formoterol Fumarate (Symbicort 160-4.5 Inh) 1 puff Q12HR INH 03/10/17 21:00 03/25/17 09:00 Dextrose (D50w (Vial) Inj) 50 ml UNSCH PRN IV PUSH HYPOGLYCEMIA-SEE COMMENTS 03/11/17 17:15 03/25/17 22:35 Glucagon (Glucagon Inj) 1 mg UNSCH PRN OTHER HYPOGLYCEMIA-SEE COMMENTS 03/11/17 17:15 Enalaprilat (Vasotec Inj) 1.25 mg Q6H PRN IV PUSH SBP>160, DBP>90 03/11/17 17:15 Famotidine (Pepcid) 20 mg BID PO 03/13/17 21:00 03/26/17 09:17 Loperamide HCl (Imodium) 2 mg Q4H PRN PO Diarrhea 03/14/17 10:00 03/15/17 15:08 Multivitamin Hematinic Therapeutic (Theragran Hematinic) 1 tab DAILY PO 03/15/17 09:00 03/25/17 09:44 Ascorbic Acid (Vitamin C) 1,000 mg DAILY PO 03/15/17 09:00 03/26/17 09:20 Patient Own Medication (Linagliptin (Tradjenta) 5 MG DAILY PO 03/17/17 10:00 Future Hold Lisinopril (Prinivil) 40 mg DAILY PO 03/19/17 09:00 03/25/17 09:00 Oxacillin Sodium 2 gm/Sodium Chloride 100 ml @ 200 mls/hr Q4H IV 03/18/17 17:00 03/26/17 09:14 Spironolactone (Aldactone) 25 mg DAILY PO 03/19/17 15:00 03/26/17 09:17 Albumin Human 100 ml @ 60 mls/hr Q12H IV 03/19/17 20:00 03/26/17 09:13 Insulin Detemir (Levemir Inj) 17 units BID SQ 03/21/17 09:00 03/26/17 09:14 Insulin Aspart (NovoLOG INJ) 7 units TIDAC SQ 03/21/17 08:00 03/25/17 09:54 Fluconazole (Diflucan) 100 mg DAILY PO 03/21/17 10:30 03/26/17 09:20 Potassium Chloride (KCl) 20 meq DAILY PO 03/22/17 09:00 03/26/17 09:16 Morphine Sulfate (Oramorph Sr) 45 mg Q12HR PO 03/22/17 21:00 03/26/17 09:17 Gabapentin (Neurontin) 300 mg TID PO 03/24/17 09:00 03/26/17 09:16 Doxycycline Hyclate (Vibratab) 100 mg Q12H PO 03/24/17 12:00 03/26/17 00:45 Potassium Chloride/Sodium Chloride 1,000 ml @ 100 mls/hr Q10H IV 03/25/17 15:31 03/26/17 05:44 IV Flush (NS Flush) 2 ml UNSCH PRN IVF FLUSH AFTER USING IV ACCESS 03/25/17 15:45 IV Flush (NS Flush) 2 ml BID IVF 03/25/17 21:00 03/25/17 21:00 Cefazolin Sodium/ Dextrose 50 ml @ 100 mls/hr Q8H IV 03/25/17 21:00 03/26/17 13:29 03/26/17 05:07 Docusate Sodium (Colace) 100 mg BID PO 03/25/17 21:00 03/26/17 09:20 Pantoprazole Sodium (Protonix) 40 mg DAILY PO 03/26/17 09:00 03/26/17 09:17 Acetaminophen/ Hydrocodone Bitart ([place] 10-325 Mg) 1 tab Q4H PRN PO PAIN SCALE 1 TO 5 03/25/17 15:45 Acetaminophen/ Hydrocodone Bitart ([place] 10-325 Mg) 2 tab Q4H PRN PO PAIN SCALE 6 TO 10 03/25/17 15:45 Morphine Sulfate (Morphine Inj) 2 mg Q2H PRN IV PUSH PAIN SCALE 1 TO 6 03/25/17 15:45 Morphine Sulfate (Morphine Inj) 4 mg Q2H PRN IV PUSH PAIN SCALE 7 TO 10 03/25/17 15:45 03/26/17 09:02 Acetaminophen (Tylenol) 650 mg Q4H PRN PO TEMPERATURE > 101.5 F 03/25/17 15:45 Miscellaneous Information ALL NURSING DEPARTME... UNSCH PRN .XX SEE LABEL COMMENTS 03/25/17 14:54 03/26/17 14:53 Insulin Aspart (NovoLOG SUPPLEMENTAL SCALE) 1 Q4HR SQ 03/25/17 20:00 03/26/17 09:15 Hydromorphone HCl (Dilaudid TANNING WHEEL FILLER Inj) 6 mg UNSCH IV 03/25/17 21:15 03/26/17 09:09 TANNING WHEEL FILLER Dosage Infused (Pha) 1 Q8HR .XX 03/25/17 22:00 03/26/17 05:41 Naloxone HCl (Narcan Inj) 0.4 mg UNSCH PRN IV PUSH RESPIRATORY RATE LESS THAN 10 03/25/17 21:00 Furosemide (Lasix) 40 mg BID@09,18 PO 03/26/17 18:00 UNV (Shanta Jones) Medical Decision Making MDM Remarks 67 y/o male with osteomyelitis, discitis, large epidural abscess with severe canal stenosis/cord compression at L1-2, lower extremity weakness, intractable lumbar pain s/p L1-2 laminectomy with evacuation of epidural abscess and placement of wound vac 03/25/17 (Shanta Jones) Plan Plan Remarks cont wound vac therapy - wound care nursing consulted awaiting custom molded TLSO brace, keep bed rest until brace available PT, OOB with TLSO brace and assistance cont pain control cont antibiotics per ID (Shanta Jones) Attending Statement The exam, history, and the medical decision-making described in the above note were completed with the assistance of the mid-level provider. I reviewed and agree with the findings presented. I attest that I had a [id number] encounter with the patient on the same day, and personally performed and documented my assessment and findings in the medical record. (Paras Fitzgerald MD) Shanta Jones Mar 26, 2017 10:46 Paras Fitzgerald MD Mar 26, 2017 16:55
[2017-03-26] MEDS: SODIUM CHLORID 0.9% 500 ML INJ 500 ML IV SCH ×2 (11:07→11:50)
[2017-03-26 12:02] LABS: MEAN CELL VOLUME 81.5 FL (80.0-100.0); MEAN CORPUSCULAR HGB CONC 31.9 % (32.0-36.0); PLATELET COUNT 191 TH/MM3 (150-450); RED BLOOD COUNT 2.43 MIL/MM3 (4.50-5.90); WHITE BLOOD COUNT 12.7 TH/MM3 (4.0-11.0)
--- NOTE | 2017-03-26 12:02 | RADRPT ---
EXAM DATE/TIME: 03/26/2017 11:15 [facility] COMPARISON: CHEST SINGLE AP, March 10, 2017, 12:09. INDICATIONS : Chest pain and back pain. MEDICAL HISTORY : Hypertension. Bladder cancer SURGICAL HISTORY : Appendectomy. Cholecystectomy.Spleen repair. Partial bladder removal ENCOUNTER: Subsequent ACUITY: 2 weeks PAIN SCORE: 0/10 LOCATION: Bilateral chest FINDINGS: Minimal bibasilar parenchymal changes worse on the right than the left. The heart and pulmonary vascu larity are normal. Mild degenerative changes about both shoulders. CONCLUSION: Minimal bibasilar parenchymal changes. Parker Way MD FACR on March 26, 2017 at 11:56 Board Certified Radiologist. This report was verified electronically.
[2017-03-26 12:03] LABS: REVIEW FLAG FINAL
[2017-03-26 12:07] LABS: HEMATOCRIT 19.8 % (39.0-51.0)
--- NOTE | 2017-03-26 12:47 | EKG ---
Date Performed: 03/26/2017 Time Performed: 11:02:54 PTAGE: 67 years EKG: Sinus tachycardia. Normal ECG except for rate PREVIOUS TRACING : 01/29/2017 05.37 DOCTOR: Grant Tee Interpretating Date/Time 03/26/2017 12:45:33
[2017-03-26 13:20] LABS: ALT (GPT) 22 U/L (12-78); ANION GAP 10 MEQ/L (5-15); AST (GOT) 27 U/L (15-37); BICARBONATE 27.4 MEQ/L (21.0-32.0); BLOOD UREA NITROGEN 25 MG/DL (7-18); CHLORIDE 97 MEQ/L (98-107); GLOMERULAR FILTRATION RATE 43 ML/MIN (>89); MAGNESIUM 1.7 MG/DL (1.5-2.5); POTASSIUM 4.2 MEQ/L (3.5-5.1); SODIUM (NA) 134 MEQ/L (136-145)
[2017-03-26 13:23] LABS: ALKALINE PHOSPHATASE 76 U/L (45-117); TOTAL BILIRUBIN ADULT 0.7 MG/DL (0.2-1.0)
--- NOTE | 2017-03-26 15:48 | HHI.IDPN ---
Note Infectious Disease Note Patient is status post evacuation of lumbar spine epidural abscess/L1L2 laminectomy. Feels tired. Some difficulty moving legs. Low grade fever. Wound culture has staph aureus. Blood culture 03/21 and 03/17 - no growth. Prior blood culture on 03/10 - staph aureus and urine culture had staph aureus. 2D ECHO has no vegetations. The patient underwent right colon resection and also small bowel resection for ischemic cecum and fascia and partial ischemia of the distal terminal ileum on 01/29/2017. After the surgery and he also had report of Clostridium perfringens at the margins of the surgical tissue on the pathology specimen. PAST MEDICAL HISTORY: 1. Esophageal varices. 2. Hepatitis C. 3. History of cirrhosis. 4. Recent bowel resection. 5. Diabetes mellitus. 6. History of laparoscopic cholecystectomy. 7. History of back surgery. 8. Neuropathy. 9. Vasectomy. 10. History of bladder cancer. 11. History of bilateral knee surgery. 12. History of banding of esophageal varices. ALLERGIES: 1. PENTAZOCINE. 2. CODEINE. 3. KETORFANOL. 4. IV DYE. 5. IODINATED CONTRAST. ANTIBIOTICS: Oxacillin. fluconazole. SOCIAL HISTORY: No alcohol use. No illicit drugs. FAMILY HISTORY: Noncontributory. OBJECTIVE: Vital Signs Date Time Temp Pulse Resp B/P (MAP) Pulse Ox O2 Delivery O2 Flow Rate FiO2 03/26/17 14:00 20 03/26/17 12:15 98.2 105 18 100/57 95 03/26/17 12:00 98.2 107 18 100/57 (71) 97 03/26/17 11:55 99.0 108 19 100/56 98 03/26/17 11:37 99.8 109 21 105/60 97 03/26/17 09:09 21 03/26/17 08:00 98.1 1 08 03/26/17 00:45 100.6 107 20 106/56 (73) 94 03/26/17 00:17 109 03/26/17 00:00 99.4 19 99/54 (69) 98 03/25/17 20:40 99.1 95 21 92/51 (65) 94 03/25/17 19:00 104 24 106/59 (75) 100 Room Air 03/25/17 18:00 102 27 114/62 (79) 99 Room Air 03/25/17 17:22 12 03/25/17 17:19 17 03/25/17 17:00 95 28 126/64 (84) 99 Room Air 03/25/17 16:30 91 22 108/65 (79) 96 Room Air 03/25/17 16:08 17 03/25/17 16:00 93 17 102/64 (77) 96 Room Air 03/25/17 15:45 90 18 90/52 (65) 95 Room Air Laboratory Tests Test 03/26/17 07:31 03/26/17 11:05 White Blood Count 11.7 TH/MM3 12.7 TH/MM3 Red Blood Count 2.42 MIL/MM3 2.43 MIL/MM3 Hemoglobin 6.3 GM/DL 6.3 GM/DL Hematocrit 19.6 % 19.8 % Mean Corpuscular Volume 81.0 FL 81.5 FL Mean Corpuscular Hemoglobin 26.2 PG 26.0 PG Mean Corpuscular Hemoglobin Concent 32.4 % 31.9 % Red Cell Distribution Width 18.1 % 18.0 % Platelet Count 192 TH/MM3 191 TH/MM3 Mean Platelet Volume 8.1 FL 8.2 FL Neutrophils (%) (Auto) 81.2 % Lymphocytes (%) (Auto) 9.2 % Monocytes (%) (Auto) 8.6 % Eosinophils (%) (Auto) 0.6 % Basophils (%) (Auto) 0.4 % Neutrophils # (Auto) 9.5 TH/MM3 Lymphocytes # (Auto) 1.1 TH/MM3 Monocytes # (Auto) 1.0 TH/MM3 Eosinophils # (Auto) 0.1 TH/MM3 Basophils # (Auto) 0.0 TH/MM3 CBC Comment DIFF FINAL Differential Comment Laboratory Tests Test 03/25/17 22:55 03/26/17 07:31 03/26/17 11:38 Random Glucose 142 MG/DL 153 MG/DL Blood Urea Nitrogen 25 MG/DL Creatinine 1.61 MG/DL Total Protein 7.0 GM/DL Albumin 2.5 GM/DL Calcium Level 7.9 MG/DL Phosphorus Level 4.5 MG/DL Magnesium Level 1.7 MG/DL Alkaline Phosphatase 76 U/L Aspartate Amino Transf (AST/SGOT) 27 U/L Alanine Aminotransferase (ALT/SGPT) 22 U/L Total Bilirubin 0.7 MG/DL Sodium Level 134 MEQ/L Potassium Level 4.2 MEQ/L Chloride Level 97 MEQ/L Carbon Dioxide Level 27.4 MEQ/L Anion Gap 10 MEQ/L Estimat Glomerular Filtration Rate 43 ML/MIN Troponin I LESS THAN 0.02 NG/ML Microbiology Date/Time Source Procedure Growth Status 03/25/17 22:55 Blood Peripheral Aerobic Blood Culture - Preliminary NO GROWTH IN 1 DAY Resulted 03/25/17 22:55 Blood Peripheral Anaerobic Blood Culture - Preliminary NO GROWTH IN 1 DAY Resulted 03/25/17 14:30 Wound Back Fungal Smear - Final NO FUNGAL ELEMENTS SEEN. Resulted 03/25/17 14:30 Wound Back Fungal Culture Pending Resulted 03/25/17 14:30 Wound Back Acid Fast Stain Pending Worksheet 03/25/17 14:30 Wound Back Mycobacterial Culture Pending Worksheet 03/25/17 14:30 Wound Back Gram Stain - Final Resulted 03/25/17 14:30 Wound Culture - Preliminary Staphylococcus Aureus Resulted 03/25/17 14:30 Wound Back Fungal Smear - Final NO FUNGAL ELEMENTS SEEN. Resulted 03/25/17 14:30 Wound Back Fungal Culture Pending Resulted 03/25/17 14:30 Wound Back Acid Fast Stain Pending Worksheet 03/25/17 14:30 Wound Back Mycobacterial Culture Pending Worksheet 03/25/17 14:30 Wound Back Gram Stain - Final Resulted 03/25/17 14:30 Wound Culture - Preliminary Staphylococcus Aureus Resulted 03/25/17 14:30 Wound Back Fungal Smear - Final NO FUNGAL ELEMENTS SEEN. Resulted 03/25/17 14:30 Wound Back Fungal Culture Pending Resulted 03/25/17 14:30 Wound Back Acid Fast Stain Pending Worksheet 03/25/17 14:30 Wound Back Mycobacterial Culture Pending Worksheet 03/25/17 14:30 Wound Back Gram Stain - Final Resulted 03/25/17 14:30 Wound Culture - Preliminary Staphylococcus Aureus Resulted IMAGING: Lumbar Spine MRI 03/25/17 0000 Signed Impressions: Service Date/Time: Saturday, March 25, 2017 08:45 - CONCLUSION: Discitis at L1-2 with adjacent osteomyelitis. Significant paraspinal and epidural abscess and bilateral psoas abscesses. Moderate degenerative spondylosis throughout the remainder of the lumbar spine with fairly severe canal stenosis at L4-5 and less prominent changes at other levels as described Vishal Osorio MD Lower Extremity Ultrasound 03/24/17 0000 Signed Impressions: Service Date/Time: Friday, March 24, 2017 12:42 - CONCLUSION: Negative for deep venous thrombosis. Parker Way MD FACR Abdomen Ultrasound 03/20/17 0000 Signed Impressions: Service Date/Time: March 18:32 - CONCLUSION: 1. 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 2. Less than 50%% stenosis in the superior mesenteric artery. Jase Estes MD Abdomen/Pelvis CT 03/13/17 0000 Signed Impressions: Service Date/Time: February 15:19 - CONCLUSION: 1. Moderate-sized bilateral effusions with consolidative changes. 2. Moderate hepatosplenomegaly. 3. Ascites diffusely throughout the abdomen. 4. Compared to previous the effusions have enlarged. The ascites is new. The liver and spleen are stable in size. Natalio Way MD Chest X-Ray 03/10/17 0000 Signed Impressions: Service Date/Time: Friday, March 10, 2017 12:09 - CONCLUSION: No acute disease. There is no evidence of pneumonia. Jase Estes MD PHYSICAL EXAMINATION: GENERAL: No acute distress. Awake and alert and oriented. HEENT: No icterus. Oropharynx moist mucosa without lesions. NECK: Supple. LUNGS: Clear breath sounds. HEART: Regular S1-S2 without murmurs, rubs or gallops. ABDOMEN: Midline surgical incision appears intact. Positive bowel sounds. : Tenderness at the left testicle. EXTREMITIES: No clubbing, cyanosis or edema. SKIN: No rash. NEUROLOGIC: Weakness at the lower extremities. PSYCHIATRIC: Calm and cooperative. IMPRESSION: 1. Bacteremia due to staph aureus. Persistent positive blood cultures. - Discitis and osteomyelitis at L1- L2 and epidural, paraspinal and psoas abscess bilateral. This is the more likely source of the bacteremia. - post evacuation of lumbar spine epidural abscess/L1L2 laminectomy. 2. Urinary tract infection due to staph aureus. Probably is the source. However give the persisting blood culture could have another nidus. 3. Abdominal pain of questionable etiology. Most likely had referred pain from psoas abscess, discitis. 4. Fever low grade. 5. Probably epididymitis/orchitis. RECOMMENDATIONS: 1. Continue Oxacillin IV. 2. Continue fluconazole for yeast in urine. 3. Monitor temp and WBC. Florentino Burnette MD Mar 26, 2017 15:48
[2017-03-26] MEDS: ENOXAPARIN SODIUM 40 MG/0.4 ML SYRINGE SQ SCH (16:49)
[2017-03-26] MEDS: FUROSEMIDE 40 MG TAB PO SCH (18:00)
[2017-03-26 23:06] LABS: HEMATOCRIT 23.9 % (39.0-51.0); MEAN CELL VOLUME 82.1 FL (80.0-100.0); MEAN CORPUSCULAR HEMOGLOBIN 27.6 PG (27.0-34.0); MEAN CORPUSCULAR HGB CONC 33.6 % (32.0-36.0); PLATELET COUNT 191 TH/MM3 (150-450); RED BLOOD COUNT 2.91 MIL/MM3 (4.50-5.90); RED CELL DISTRIBUTION WIDTH 17.1 % (11.6-17.2); REVIEW FLAG FINAL
[2017-03-26 23:20] LABS: ANION GAP 9 MEQ/L (5-15); BLOOD UREA NITROGEN 30 MG/DL (7-18); CHLORIDE 100 MEQ/L (98-107); GLOMERULAR FILTRATION RATE 42 ML/MIN (>89); POTASSIUM 4.3 MEQ/L (3.5-5.1); SODIUM (NA) 137 MEQ/L (136-145)
[2017-03-27] VITALS: BP 101/55; PULSE 101; RESP 20; TEMP 98.7; O2SAT 100
[2017-03-27] MEDS: OXACILLIN INJ 2 GM in SODIUM CHLORIDE 0.9% INJ 100 ML IV SCH ×6 (01:00→20:42)
[2017-03-27 04:00] VITALS: BP 120/66; PULSE 107; RESP 18; TEMP 99.6; O2SAT 92
[2017-03-27] MEDS: INSULIN ASPART SUPPLEMENTAL SCALE SQ SCH ×6 (04:00→20:00)
[2017-03-27] MEDS: PCA - TOTAL MG DILAUDID DELIVERED PER SHIFT SCH ×3 (06:00→22:00)
[2017-03-27 08:48] VITALS: O2SAT 96
[2017-03-27] MEDS: HYDROmorphone HCL PCA 6 MG/30 ML IV SCH ×2 (08:48→16:57)
[2017-03-27] MEDS: INSULIN ASPART 1,000 UNITS/10 ML VIAL SQ SCH ×3 (08:54→17:57)
[2017-03-27] MEDS: INSULIN DETEMIR 100 UNITS/ML VIAL SQ SCH ×2 (08:54→20:42)
[2017-03-27] MEDS: SPIRONOLACTONE 25 MG TAB PO SCH (08:58)
[2017-03-27] MEDS: MULTIVITAMIN HEMATINIC THERAPEUTIC TAB PO SCH (08:59)
[2017-03-27] MEDS: DOCUSATE SODIUM 100 MG CAP PO SCH ×2 (08:59→20:40)
[2017-03-27] MEDS: GABAPENTIN 300 MG CAP PO SCH ×3 (08:59→16:54)
[2017-03-27] MEDS: FAMOTIDINE 20 MG TAB PO SCH ×2 (09:00→20:40)
[2017-03-27] MEDS: FUROSEMIDE 40 MG TAB PO SCH (09:00)
[2017-03-27] MEDS: POTASSIUM CHLORIDE 20 MEQ CONTROLLED RELEASE TAB PO SCH (09:00)
[2017-03-27] MEDS: SODIUM CHLORIDE 0.9% FLUSH 5 ML FLUSH IVF SCH ×2 (09:00→21:00)
[2017-03-27] MEDS: PANTOPRAZOLE SOD 40 MG DELAYED RELEASE TAB PO SCH (09:00)
[2017-03-27] MEDS: ASCORBIC ACID 500 MG TAB PO SCH (09:00)
[2017-03-27] MEDS: LISINOPRIL 20 MG TAB PO SCH (09:00)
[2017-03-27] MEDS: FLUCONAZOLE 100 MG TAB PO SCH (09:00)
[2017-03-27] MEDS: MORPHINE SULFATE 15 MG CONTROLLED RELEASE TAB PO SCH ×2 (09:01→20:40)
[2017-03-27] MEDS: ALBUMIN 25% INJ 100 ML IV SCH ×2 (09:01→20:39)
[2017-03-27] MEDS: BUDESONIDE-FORMOTEROL 160/4.5 MCG INHALER INH SCH ×2 (09:02→20:41)
[2017-03-27 10:29] LABS: MEAN CELL VOLUME 81.5 FL (80.0-100.0); MEAN CORPUSCULAR HEMOGLOBIN 27.1 PG (27.0-34.0); MEAN CORPUSCULAR HGB CONC 33.3 % (32.0-36.0); PLATELET COUNT 196 TH/MM3 (150-450); RED BLOOD COUNT 2.83 MIL/MM3 (4.50-5.90); RED CELL DISTRIBUTION WIDTH 17.5 % (11.6-17.2); REVIEW FLAG FINAL; WHITE BLOOD COUNT 12.3 TH/MM3 (4.0-11.0)
--- NOTE | 2017-03-27 11:40 | HHI.PR ---
Subjective Remarks The patient was upset that he was interrupted as he was sleeping. He had no acute complaints. Objective Vitals Vital Signs Date Time Temp Pulse Resp B/P (MAP) Pulse Ox O2 Delivery O2 Flow Rate FiO2 03/27/17 08:48 96 21 03/27/17 08:48 24 03/27/17 06:00 18 03/27/17 04:00 99.6 107 18 120/66 (84) 92 03/27/17 00:00 98.7 101 20 101/55 (70) 100 03/26/17 20:00 98.5 113 20 117/63 (81) 96 03/26/17 18:30 99.0 109 22 109/56 97 03/26/17 18:15 99.7 108 21 97/53 100 03/26/17 17:54 100.7 110 20 102/58 100 03/26/17 17:08 19 03/26/17 16:00 98.4 110 18 112/67 (82) 96 03/26/17 14:00 20 03/26/17 12:15 98.2 105 18 100/57 95 03/26/17 12:00 98.2 107 18 100/57 (71) 97 03/26/17 11:55 99.0 108 19 100/56 98 I/O 03/26/17 03/26/17 03/26/17 03/27/17 03/27/17 03/27/17 07:00 15:00 23:00 07:00 15:00 23:00 Intake Total 814 ml 325 ml 964 ml Output Total 25 ml 1100 ml 1273 ml Balance 789 ml -1100 ml 325 ml -309 ml Intake Oral 200 ml IV Total 614 ml 964 ml Packed Cells 325 ml Output Urine Total 1100 ml 1250 ml Drainage Total 25 ml 23 ml # Bowel Movements 0 Result Diagram: 03/27/17 0930 03/26/17 2235 Imaging Last Impressions Chest X-Ray 03/26/17 0000 Signed Impressions: Service Date/Time: Sunday, March 26, 2017 11:15 - CONCLUSION: Minimal bibasilar parenchymal changes. Parker Way MD FACR Lumbar Spine X-Ray 03/25/17 0000 Signed Impressions: Service Date/Time: Saturday, March 25, 2017 13:17 - CONCLUSION: Instruments overlie the posterior elements at the L1-L2 level. Vishal Oneal MD Lumbar Spine MRI 03/25/17 0000 Signed Impressions: Service Date/Time: Saturday, March 25, 2017 08:45 - CONCLUSION: Discitis at L1-2 with adjacent osteomyelitis. Significant paraspinal and epidural abscess and bilateral psoas abscesses. Moderate degenerative spondylosis throughout the remainder of the lumbar spine with fairly severe canal stenosis at L4-5 and less prominent changes at other levels as described Vishal Osorio MD Lower Extremity Ultrasound 03/24/17 0000 Signed Impressions: Service Date/Time: Friday, March 24, 2017 12:42 - CONCLUSION: Negative for deep venous thrombosis. Parker Way MD FACR Scrotum Ultrasound 03/23/17 0000 Signed Impressions: Service Date/Time: Thursday, March 23, 2017 12:04 - CONCLUSION: Bilateral testicular atrophy. No torsion, inflammatory changes or other acute abnormality seen. Vishal Cevallos MD Abdomen Ultrasound 03/21/17 0000 Signed Impressions: Service Date/Time: Tuesday, March 21, 2017 15:29 - CONCLUSION: Only trace ascites which is inadequate for paracentesis. Michael Philip MD Abdomen/Pelvis CT 03/13/17 0000 Signed Impressions: Service Date/Time: February 15:19 - CONCLUSION: 1. Moderate-sized bilateral effusions with consolidative changes. 2. Moderate hepatosplenomegaly. 3. Ascites diffusely throughout the abdomen. 4. Compared to previous the effusions have enlarged. The ascites is new. The liver and spleen are stable in size. Natalio Way MD Objective Remarks GENERAL: Appears uncomfortable. SKIN: No rashes, warm and dry HEAD: Atraumatic. Normocephalic. EYES: Pupils equal round and reactive. Extraocular motions intact. No scleral icterus. ENT: Nose without bleeding, or drainage, Airway patent. NECK: Trachea midline. Supple CARDIOVASCULAR: Tachycardic. RESPIRATORY: Fair air entry bilaterally. No wheezes, rales, or rhonchi. GASTROINTESTINAL: Abdomen soft, tender in the lower quadrants, nondistended. Positive bowel sounds MUSCULOSKELETAL: +2 edema in the lower extremity. NEUROLOGICAL: Awake and alert. Moves all extremity. Normal speech. No focal neurological deficit. PSYCH: Mood and affect appropriate. Procedures L1-2 laminectomy, evacuation of lumbar spinal epidural abscess 03/25 Medications and IVs Current Medications Medications (Trade) Dose Ordered Sig/Jaya Route Start Time Stop Time Status Last Admin (Zofran Inj) 4 mg Q6H PRN IVP 03/10/17 14:30 03/15/17 15:00 (Lovenox Inj) 40 mg Q24H SQ 03/10/17 16:00 03/26/17 16:49 (Narcan Inj) 0.4 mg UNSCH PRN IV PUSH 03/10/17 14:30 (Duoneb Neb) 1 ampule Q2HR NEB PRN NEB 03/10/17 14:30 (Symbicort 160-4.5 Inh) 1 puff Q12HR INH 03/10/17 21:00 03/27/17 09:02 (D50w (Vial) Inj) 50 ml UNSCH PRN IV PUSH 03/11/17 17:15 03/25/17 22:35 (Glucagon Inj) 1 mg UNSCH PRN OTHER 03/11/17 17:15 (Vasotec Inj) 1.25 mg Q6H PRN IV PUSH 03/11/17 17:15 (Pepcid) 20 mg BID PO 03/13/17 21:00 03/27/17 09:00 (Imodium) 2 mg Q4H PRN PO 03/14/17 10:00 03/15/17 15:08 (Theragran Hematinic) 1 tab DAILY PO 03/15/17 09:00 03/27/17 08:59 (Vitamin C) 1,000 mg DAILY PO 03/15/17 09:00 03/27/17 09:00 Patient Own Medication (Linagliptin (Tradjenta) 5 MG DAILY PO 03/17/17 10:00 Future Hold (Prinivil) 40 mg DAILY PO 03/19/17 09:00 03/27/17 09:00 Oxacillin Sodium 2 gm/Sodium Chloride 100 ml @ 200 mls/hr Q4H IV 03/18/17 17:00 03/27/17 09:22 (Aldactone) 25 mg DAILY PO 03/19/17 15:00 Future Hold 03/27/17 08:58 Albumin Human 100 ml @ 60 mls/hr Q12H IV 03/19/17 20:00 03/27/17 09:01 (Levemir Inj) 17 units BID SQ 03/21/17 09:00 03/27/17 08:54 (NovoLOG INJ) 7 units TIDAC SQ 03/21/17 08:00 03/27/17 08:54 (Diflucan) 100 mg DAILY PO 03/21/17 10:30 03/27/17 09:00 (KCl) 20 meq DAILY PO 03/22/17 09:00 03/27/17 09:00 (Oramorph Sr) 45 mg Q12HR PO 03/22/17 21:00 03/27/17 09:01 (Neurontin) 300 mg TID PO 03/24/17 09:00 03/27/17 08:59 (Vibratab) 100 mg Q12H PO 03/24/17 12:00 03/26/17 15:10 (NS Flush) 2 ml UNSCH PRN IVF 03/25/17 15:45 (NS Flush) 2 ml BID IVF 03/25/17 21:00 03/26/17 21:00 (Colace) 100 mg BID PO 03/25/17 21:00 03/27/17 08:59 (Protonix) 40 mg DAILY PO 03/26/17 09:00 03/27/17 09:00 (Maurice 10-325 Mg) 1 tab Q4H PRN PO 03/25/17 15:45 (Maurice 10-325 Mg) 2 tab Q4H PRN PO 03/25/17 15:45 (Morphine Inj) 2 mg Q2H PRN IV PUSH 03/25/17 15:45 (Morphine Inj) 4 mg Q2H PRN IV PUSH 03/25/17 15:45 03/26/17 09:02 (Tylenol) 650 mg Q4H PRN PO 03/25/17 15:45 (NovoLOG SUPPLEMENTAL SCALE) 1 Q4HR SQ 03/25/17 20:00 03/27/17 08:55 (Dilaudid JEWISH HISTORY PROFESSOR Inj) 6 mg UNSCH IV 03/25/17 21:15 03/27/17 08:48 JEWISH HISTORY PROFESSOR Dosage Infused (Pha) 1 Q8HR .XX 03/25/17 22:00 03/27/17 06:00 (Narcan Inj) 0.4 mg UNSCH PRN IV PUSH 03/25/17 21:00 (Lasix) 40 mg BID@09,18 PO 03/26/17 18:00 Future Hold 03/27/17 09:00 Sodium Chloride 1,000 ml @ 100 mls/hr Q10H IV 03/27/17 11:30 03/28/17 07:29 A/P Problem List: (1) Staphylococcus aureus bacteremia with sepsis ICD Code: A41.01 - Sepsis due to Methicillin susceptible Staphylococcus aureus Status: Acute (2) Liver cirrhosis ICD Code: K74.60 - Unspecified cirrhosis of liver (3) Uncontrolled hypertension ICD Code: I10 - Essential (primary) hypertension (4) COPD (chronic obstructive pulmonary disease) ICD Code: J44.9 - Chronic obstructive pulmonary disease, unspecified (5) Diabetes mellitus with hyperglycemia ICD Code: E11.65 - Type 2 diabetes mellitus with hyperglycemia Status: Chronic (6) Pleural effusion ICD Code: J90 - Pleural effusion, not elsewhere classified (7) Hyponatremia ICD Code: E87.1 - Hypo-osmolality and hyponatremia (8) Ascites of liver ICD Code: R18.8 - Other ascites Status: Chronic (9) Anemia ICD Code: D64.9 - Anemia, unspecified Status: Chronic (10) Anasarca ICD Code: R60.1 - Generalized edema Status: Acute (11) Abdominal pain ICD Code: R10.9 - Unspecified abdominal pain Status: Acute (12) Testicular pain, left ICD Code: N50.812 - Left testicular pain Status: Acute (13) UTI (urinary tract infection) ICD Code: N39.0 - Urinary tract infection, site not specified Status: Acute (14) Back pain ICD Code: M54.9 - Dorsalgia, unspecified Status: Acute (15) Low grade fever ICD Code: R50.9 - Fever, unspecified Status: Acute (16) Bilateral leg edema ICD Code: R60.0 - Localized edema Status: Acute (17) Discitis of lumbar region ICD Code: M46.46 - Discitis, unspecified, lumbar region Status: Acute (18) Epidural abscess ICD Code: G06.2 - Extradural and subdural abscess, unspecified Status: Acute (19) Osteomyelitis of vertebra of lumbosacral region ICD Code: M46.27 - Osteomyelitis of vertebra, lumbosacral region Status: Acute (20) Psoas abscess ICD Code: K68.12 - Psoas muscle abscess Status: Acute Assessment and Plan Discitis/ osteomyelitis/ epidural abscess/ bilateral psoas abscess Patient complains of lumbar spine pain, on exam patient has tenderness to palpation of lumbar spine and right lower extremity weakness. 03/25 Lumbar spine mri shows discitis, osteomyelitis, epidural abscess, and bilateral psoas abscess. Placed a stat neurosurgery consultation, discussed the case with Dr Amilcar Richardson's sales assistants and salespersons who reviewed MRI and discussed the case with him and said patient needs to have surgery. S/p L1-2 laminectomy, evacuation of lumbar spinal epidural abscess 03/25. - follow up with neurosurgery. - pain control. - PT. - antibiotics per ID. Staphylococcus aureus bacteremia with sepsis The patient was admitted to the medical floor, treated with IV antibiotics, infectious disease consulted. Source likely the urine since urine culture is growing MSSA. - The patient has been started on fluconazole for yeast urine on 03/21. Continue antibiotics as per ID recommendations. The patient currently on oxacillin 2 g IV every 4 hours. - The patient was started on oral doxycycline for left testicular pain and suspected epididymitis. Acute renal failure With elevated BUN, likely s/t diuretic use. - hold diuretics. - IVFs. - avoid nephrotoxic agents. Left testicular pain Testicular ultrasound showed bilateral testicular atrophy. No distortion, inflammatory changes or other acute abnormality seen. GC/chlamydia PCR negative. - started the patient on oral doxycycline 100 mg by mouth twice a day for 7 days to treat the patient empirically for epididymitis. Liver cirrhosis Abdomen and pelvis CT performed on 03/13/17 show moderate-sized bilateral pleural effusions with consolidative changes. Moderate hepatosplenomegaly. Ascites diffusely throughout the abdomen which compared to a previous CT abdomen and pelvis obtained on 03/10/17 was increased. There is a report of more prominent portal vein and interval enlargement of the spleen which measures 17.7 cm, findings consistent with increasing portal hypertension. - Ultrasound-guided abdominal paracentesis was ordered, however there is not enough fluid for the procedure to be done. - holding diuresis in the setting of ARF. - GI following. Uncontrolled hypertension Blood pressure initially uncontrolled. Better controlled after dose of lisinopril increased. - Continue to monitor bp and continue lisinopril. COPD (chronic obstructive pulmonary disease On prednisone for COPD which seems to be stable. - s/p prednisone taper. Diabetes mellitus with hyperglycemia Blood sugars are still labile. - Continue basal bolus therapy with insulin Levemir and prandial insulin NovoLog. - Place on diabetic diet and high NovoLog insulin scale. Continue to monitor Accu-Cheks. Pleural effusion Pleural effusion likely overload and diastolic congestive heart failure secondary to liver cirrhosis. Echocardiogram shows a normal systolic function with an EF in the range of 55-60%. Wall thickness measure at the upper limits of normal. - holding diuretics. Hyponatremia Suspect combination of hypervolemic hyponatremia and pseudo-hyperglycemia given uncontrolled blood sugars. - monitor BMP. Celiac artery stenosis/ Abdominal pain 03/21 ultrasound of the abdomen SMA/celiac Doppler showed a greater than 70% stenosis in the celiac artery. Less than 50% stenosis in the mesenteric artery. Vascular surgery recommendations appreciated. Discussed the case with Dr. Gurrola who states that abdominal pain is not coming from this finding. - Recommended outpatient treatment with pain invoice control clerk. Acute blood loss anemia Iron low, ferritin normal. TIBC and percent saturation not done. Ordered. Anemic following surgery. - 2 units prbc ordered 03/26. Follow CBC and transfuse additional unit if indicated. Stable. Anasarca Patient with increasing bilateral pleural effusions, ascites and lower extremity edema. Anasarca likely secondary to combination of liver cirrhosis and congestive heart failure. - holding diuretics. GI Prophylaxis: Continue PPI. VT prophylaxis: Lovenox held secondary to anemia Discharge Planning Awaiting improvement Problem Qualifiers (1) COPD (chronic obstructive pulmonary disease): Qualified Codes: J42 - Unspecified chronic bronchitis (2) Diabetes mellitus with hyperglycemia: Qualified Codes: E11.65 - Type 2 diabetes mellitus with hyperglycemia; Z79.4 - [facility] (current) use of insulin (3) Anemia: Qualified Codes: D64.9 - Anemia, unspecified Jase Griffin DO Mar 27, 2017 11:40
[2017-03-27] MEDS: MORPHINE SULFATE 4 MG/ML INJ IV PUSH PRN ×2 (11:54→15:09)
[2017-03-27] MEDS: DOXYCYCLINE HYCLATE 100 MG TAB PO SCH ×2 (11:54)
[2017-03-27 12:00] VITALS: BP 98/57; PULSE 98; RESP 18; TEMP 98.8; O2SAT 95
[2017-03-27] MEDS: SODIUM CHLOR 0.9% 1000 ML INJ 1,000 ML IV SCH ×2 (12:42→20:42)
--- NOTE | 2017-03-27 13:00 | PD.WCN.NOT ---
Wound Consult Description: Received consult from Doctor Head for wound VAC management lumbar post abscess drainage. Communicated with: MARIUSZ Lepe and Shanta PATEL for Doctor Fitzgerald Recommendation: 1. Please leave wound VAC off of patient 2.Please cleanse wound with normal saline and fill space with calcium alginate and cover with bordered gauze. Change dressing every other day or PRN if saturated or dislodged Additional Information: Patient seen on for VAC management of Lumbar post abscess drainage. Surgery was done on 03/25 by Doctor Fitzgerald Neurosurgery.Patient has RIM FIRE PRIMING TOOL SETTER hydromorphone and morphine for breakthrough pain that was given before assessing patient. Patient is very painful with turns and repositioning in bed. FILM PROCESSING SHIFT SUPERVISOR at bedside bathing patient. Patient turned to L side VAC dressing in place is leaking without suction. Dressing was dislodged. Removed Sensi trac pad in place to back to reveal granufoam that was not in full contact with Sensi trac pad. Removed dressing entirely to reveal wound that measures ~4cm x ~0.7cm x ~ 0.4cm.Wound bed presents with 100% red granulation tissue. Minimal active sanguinous drainage is noted with out odor. Cleansed wound with normal saline and gauze pad and pat dry.Periwound is noted with Rico prat drain sutured in place with dislodged bio patch and gauze dressing, but is other so unremarkable . Removed dislodged dressing over jackon alvarez drain, applied drain sponge around tube and applied 4x4 gauze pads under tube to cushion the drainage tube off patient's skin, secured with tape.Applied maxorb II(Calcium alginate) to wound bed to fill in small amount of space and covered with Bordered gauze.Sprayed skin prep before applying adhesives to skin. Spoke with Glendy PATEL for Doctor Fitzgerald and Doctor Griffin. Ostomy Date of Surgery: Mar 25, 2017 [facility] 13[facility]00
--- NOTE | 2017-03-27 13:41 | HHI.GIFU ---
Subjective Remarks Pt resting in bed, tearful "I've been left here to ." Abd diffusely TTP. leg edema improved (Isabelle Gold) Objective Vitals I&O Vital Signs Date Time Temp Pulse Resp B/P (MAP) Pulse Ox O2 Delivery O2 Flow Rate FiO2 03/27/17 12:00 98.8 98 18 98/57 (71) 95 03/27/17 08:48 96 21 03/27/17 08:48 24 03/27/17 06:00 18 03/27/17 04:00 99.6 107 18 120/66 (84) 92 03/27/17 00:00 98.7 101 20 101/55 (70) 100 03/26/17 20:00 98.5 113 20 117/63 (81) 96 03/26/17 18:30 99.0 109 22 109/56 97 03/26/17 18:15 99.7 108 21 97/53 100 03/26/17 17:54 100.7 110 20 102/58 100 03/26/17 17:08 19 03/26/17 16:00 98.4 110 18 112/67 (82) 96 03/26/17 14:00 20 I/O 03/26/17 03/26/17 03/26/17 03/27/17 03/27/17 03/27/17 07:00 15:00 23:00 07:00 15:00 23:00 Intake Total 814 ml 325 ml 964 ml Output Total 25 ml 1100 ml 1273 ml Balance 789 ml -1100 ml 325 ml -309 ml Intake Oral 200 ml IV Total 614 ml 964 ml Packed Cells 325 ml Output Urine Total 1100 ml 1250 ml Drainage Total 25 ml 23 ml # Bowel Movements 0 Laboratory Laboratory Tests Test 03/26/17 19:25 03/26/17 22:35 03/27/17 09:30 Troponin I LESS THAN 0.02 LESS THAN 0.02 White Blood Count 14.0 12.3 Red Blood Count 2.91 2.83 Hemoglobin 8.0 7.7 Hematocrit 23.9 23.0 Mean Corpuscular Volume 82.1 81.5 Mean Corpuscular Hemoglobin 27.6 27.1 Mean Corpuscular Hemoglobin Concent 33.6 33.3 Red Cell Distribution Width 17.1 17.5 Platelet Count 191 196 Mean Platelet Volume 8.1 8.5 Blood Urea Nitrogen 30 Creatinine 1.65 Random Glucose 118 Calcium Level 8.1 Sodium Level 137 Potassium Level 4.3 Chloride Level 100 Carbon Dioxide Level 28.0 Anion Gap 9 Estimat Glomerular Filtration Rate 42 Magnesium Level 2.0 Date/Time Source Procedure Growth Status 03/25/17 22:55 Blood Peripheral Aerobic Blood Culture - Preliminary NO GROWTH IN 2 DAYS Resulted 03/25/17 22:55 Blood Peripheral Anaerobic Blood Culture - Preliminary NO GROWTH IN 2 DAYS Resulted 03/19/17 05:15 Urine Clean Catch Urine Culture - Final Chiara Tropicalis Complete 03/25/17 14:30 Wound Back Fungal Smear - Final NO FUNGAL ELEMENTS SEEN. Resulted 03/25/17 14:30 Wound Back Fungal Culture Pending Resulted Imaging Last Impressions Chest X-Ray 03/26/17 0000 Signed Impressions: Service Date/Time: Sunday, March 26, 2017 11:15 - CONCLUSION: Minimal bibasilar parenchymal changes. Parker Way MD FACR Lumbar Spine X-Ray 03/25/17 0000 Signed Impressions: Service Date/Time: Saturday, March 25, 2017 13:17 - CONCLUSION: Instruments overlie the posterior elements at the L1-L2 level. Vishal Oneal MD Lumbar Spine MRI 03/25/17 0000 Signed Impressions: Service Date/Time: Saturday, March 25, 2017 08:45 - CONCLUSION: Discitis at L1-2 with adjacent osteomyelitis. Significant paraspinal and epidural abscess and bilateral psoas abscesses. Moderate degenerative spondylosis throughout the remainder of the lumbar spine with fairly severe canal stenosis at L4-5 and less prominent changes at other levels as described Vishal Osorio MD Lower Extremity Ultrasound 03/24/17 0000 Signed Impressions: Service Date/Time: Friday, March 24, 2017 12:42 - CONCLUSION: Negative for deep venous thrombosis. Parker Way MD FACR Scrotum Ultrasound 03/23/17 0000 Signed Impressions: Service Date/Time: Thursday, March 23, 2017 12:04 - CONCLUSION: Bilateral testicular atrophy. No torsion, inflammatory changes or other acute abnormality seen. Vishal Cevallos MD Abdomen Ultrasound 03/21/17 0000 Signed Impressions: Service Date/Time: Tuesday, March 21, 2017 15:29 - CONCLUSION: Only trace ascites which is inadequate for paracentesis. Michael Philip MD Abdomen/Pelvis CT 03/13/17 0000 Signed Impressions: Service Date/Time: February 15:19 - CONCLUSION: 1. Moderate-sized bilateral effusions with consolidative changes. 2. Moderate hepatosplenomegaly. 3. Ascites diffusely throughout the abdomen. 4. Compared to previous the effusions have enlarged. The ascites is new. The liver and spleen are stable in size. Natalio Way MD Physical Exam HEENT: Normocephalic; atraumatic; no jaundice. CHEST: CTA, diminished. CARDIAC: RRR ABDOMEN: Soft. Diffuse TTP. EXTREMITIES: No clubbing, cyanosis, edema improved SKIN: Normal; no rash; no jaundice. BALE COVERER: No focal deficits; alert and oriented times three. (Isabelle Gold [facility]) Assessment and Plan Plan ASSESSMENT: - Abdominal pain - LUQ pain that radiates to RLQ, unclear etiology. History of chronic pancreatitis. S/P bowel resection for ischemia 01/2017. Last colonoscopy 1 y ago polyps found. C diff neg. Patient continues to have abdominal pain. Was started on PO pancreatic enzymes. 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 Ascites on CT, unclear etiology. Patient admits history of Hep C. CT Abdomen 03/10--suggestive of portal HTN, CT Abdomen 03/13--showed enlarged liver, ascites no LFT derangement, on albumin. Plan was for diagnostic paracentesis but now insufficient fluid to remove. AFP 2.9. FANNIE neg, ASMA neg. AMA neg. Alpha 1 Antitrypsin 216. Ceruloplasmin 24. 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 will start on Tenofovir - Anemia - Hgb dropped 03/26, s/p PRBC, up to 7.7 - discitis, osteomyelitis, epidural abscess s/p evacuation & lami, neurosurgery now following - Anasarca - on diuretics PLAN: - tenofovir 300mg qd - Low sodium diet - Supportive care -GI will s/o please reconsult if needed Patient seen and examined by Dr. Mariee and myself and this note is written on his behalf. (Isabelle Gold) Physician Comments Seen and examined, plan as above. Start Tenofovir and follow up as out patient. Please notify us if needed. (Jason Mariee MD) Isabelle Gold Mar 27, 2017 13:41 Jason Mariee MD Mar 27, 2017 16:51
[2017-03-27] MEDS: ACETAMINOPHEN/HYDROcodone 325 MG/10 MG TAB PO PRN (14:31)
[2017-03-27 16:00] VITALS: BP 146/69; PULSE 104; RESP 18; TEMP 99.2; O2SAT 93
--- NOTE | 2017-03-27 16:18 | HHI.NSPN ---
(Shanta Jones) Note Status Status: Progress Note (Shanta Jones) Interval History Interval History Mr. Parks is a 66-year-old male who was admitted secondary to right lower quadrant pain with sepsis. She has a history of a bowel resection approximately 1.5 months ago. There was suspicion of bacterial enteritis or colitis is present in place since his recent surgical site at risk so close monitoring and treatments are initiated. His surgeon has been consulted. Nausea and vomiting was present at time of admit. he is a smoker. history of COPD. Three weeks ago he underwent a laparotomy. He has developed extremely severe pain with radiculopathy in his right lower extremity, and now significant weakness in his legs. No incontinence of stool or urine. MRI L spine showed a large epidural abscess with spinal cord compression. neurosurgical consultation was requested. s/p L1-2 laminectomy with evacuation of lumbar spinal epidural abscess, and placement of wound vac 03/25/1703/26: laying in bed alert. c/o of intractable back pain - has [employer]PER[employer] pump at bedside, stable lower extremity weakness 03/27: pt seen this morning during rounds, persistent intractable lumbar pain. [employer] not controlling pain. (Shanta Jones) Labs, Micro, & Vital Signs Results Date Time Temp Pulse Resp B/P (MAP) Pulse Ox O2 Delivery O2 Flow Rate FiO2 03/27/17 12:00 98.8 98 18 98/57 (71) 95 03/27/17 08:48 96 21 03/27/17 08:48 24 03/27/17 06:00 18 03/27/17 04:00 99.6 107 18 120/66 (84) 92 03/27/17 00:00 98.7 101 20 101/55 (70) 100 03/26/17 20:00 98.5 113 20 117/63 (81) 96 03/26/17 18:30 99.0 109 22 109/56 97 03/26/17 18:15 99.7 108 21 97/53 100 03/26/17 17:54 100.7 110 20 102/58 100 03/26/17 17:08 19 Constitutional Vital Signs Date Time Temp Pulse Resp B/P (MAP) Pulse Ox O2 Delivery O2 Flow Rate FiO2 03/27/17 12:00 98.8 98 18 98/57 (71) 95 03/27/17 08:48 96 21 03/27/17 08:48 24 03/27/17 06:00 18 03/27/17 04:00 99.6 107 18 120/66 (84) 92 03/27/17 00:00 98.7 101 20 101/55 (70) 100 03/26/17 20:00 98.5 113 20 117/63 (81) 96 03/26/17 18:30 99.0 109 22 109/56 97 03/26/17 18:15 99.7 108 21 97/53 100 03/26/17 17:54 100.7 110 20 102/58 100 03/26/17 17:08 19 (Shanta Jones) Physical Exam Mr. Parks is alert, awake and oriented to time, place and person. Speech is fluent. Follows commands well. Cranial nerve examination: pupils equal. Extra-ocular movements are intact. Facial motor are normal and symmetrical. Neck is soft and supple. Muscle strength: moves upper extremities with good strength. In the lower extremities, strength is 3/5 in both iliopsoas, quadriceps, hamstrings, 4/5 plantar flexion, dorsiflexion. Sensory examination is grossly intact to light touch in both lower extremities, symmetrically. Wound with wound vac in place. (Shanta Jones) Medications Current Medications Current Medications Medications (Trade) Dose Ordered Sig/Jaya Route PRN Reason Start Time Stop Time Status Last Admin Dose Admin Ondansetron HCl (Zofran Inj) 4 mg Q6H PRN IVP NAUSEA OR VOMITING 03/10/17 14:30 03/15/17 15:00 Enoxaparin Sodium (Lovenox Inj) 40 mg Q24H SQ 03/10/17 16:00 03/26/17 16:49 Naloxone HCl (Narcan Inj) 0.4 mg UNSCH PRN IV PUSH SEE LABEL COMMENTS 03/10/17 14:30 Albuterol/ Ipratropium (Duoneb Neb) 1 ampule Q2HR NEB PRN NEB SHORTNESS OF BREATH 03/10/17 14:30 Budesonide/ Formoterol Fumarate (Symbicort 160-4.5 Inh) 1 puff Q12HR INH 03/10/17 21:00 03/27/17 09:02 Dextrose (D50w (Vial) Inj) 50 ml UNSCH PRN IV PUSH HYPOGLYCEMIA-SEE COMMENTS 03/11/17 17:15 03/25/17 22:35 Glucagon (Glucagon Inj) 1 mg UNSCH PRN OTHER HYPOGLYCEMIA-SEE COMMENTS 03/11/17 17:15 Enalaprilat (Vasotec Inj) 1.25 mg Q6H PRN IV PUSH SBP>160, DBP>90 03/11/17 17:15 Famotidine (Pepcid) 20 mg BID PO 03/13/17 21:00 03/27/17 09:00 Loperamide HCl (Imodium) 2 mg Q4H PRN PO Diarrhea 03/14/17 10:00 03/15/17 15:08 Multivitamin Hematinic Therapeutic (Theragran Hematinic) 1 tab DAILY PO 03/15/17 09:00 03/27/17 08:59 Ascorbic Acid (Vitamin C) 1,000 mg DAILY PO 03/15/17 09:00 03/27/17 09:00 Patient Own Medication (Linagliptin (Tradjenta) 5 MG DAILY PO 03/17/17 10:00 Future Hold Lisinopril (Prinivil) 40 mg DAILY PO 03/19/17 09:00 03/27/17 09:00 Oxacillin Sodium 2 gm/Sodium Chloride 100 ml @ 200 mls/hr Q4H IV 03/18/17 17:00 03/27/17 14:26 Spironolactone (Aldactone) 25 mg DAILY PO 03/19/17 15:00 Future Hold 03/27/17 08:58 Albumin Human 100 ml @ 60 mls/hr Q12H IV 03/19/17 20:00 03/27/17 09:01 Insulin Detemir (Levemir Inj) 17 units BID SQ 03/21/17 09:00 03/27/17 08:54 Insulin Aspart (NovoLOG INJ) 7 units TIDAC SQ 03/21/17 08:00 03/27/17 08:54 Fluconazole (Diflucan) 100 mg DAILY PO 03/21/17 10:30 03/27/17 09:00 Potassium Chloride (KCl) 20 meq DAILY PO 03/22/17 09:00 03/27/17 09:00 Morphine Sulfate (Oramorph Sr) 45 mg Q12HR PO 03/22/17 21:00 03/27/17 09:01 Gabapentin (Neurontin) 300 mg TID PO 03/24/17 09:00 03/27/17 14:26 Doxycycline Hyclate (Vibratab) 100 mg Q12H PO 03/24/17 12:00 03/27/17 11:54 IV Flush (NS Flush) 2 ml UNSCH PRN IVF FLUSH AFTER USING IV ACCESS 03/25/17 15:45 IV Flush (NS Flush) 2 ml BID IVF 03/25/17 21:00 03/26/17 21:00 Docusate Sodium (Colace) 100 mg BID PO 03/25/17 21:00 03/27/17 08:59 Pantoprazole Sodium (Protonix) 40 mg DAILY PO 03/26/17 09:00 03/27/17 09:00 Acetaminophen/ Hydrocodone Bitart (Marion 10-325 Mg) 1 tab Q4H PRN PO PAIN SCALE 1 TO 5 03/25/17 15:45 Acetaminophen/ Hydrocodone Bitart (Marion 10-325 Mg) 2 tab Q4H PRN PO PAIN SCALE 6 TO 10 03/25/17 15:45 03/27/17 14:31 Morphine Sulfate (Morphine Inj) 2 mg Q2H PRN IV PUSH PAIN SCALE 1 TO 6 03/25/17 15:45 Morphine Sulfate (Morphine Inj) 4 mg Q2H PRN IV PUSH PAIN SCALE 7 TO 10 03/25/17 15:45 03/27/17 15:09 Acetaminophen (Tylenol) 650 mg Q4H PRN PO TEMPERATURE > 101.5 F 03/25/17 15:45 Insulin Aspart (NovoLOG SUPPLEMENTAL SCALE) 1 Q4HR SQ 03/25/17 20:00 03/27/17 08:55 Hydromorphone HCl (Dilaudid [employer] Inj) 6 mg UNSCH IV 03/25/17 21:15 03/27/17 08:48 [employer] Dosage Infused (Pha) 1 Q8HR .XX 03/25/17 22:00 03/27/17 06:00 Naloxone HCl (Narcan Inj) 0.4 mg UNSCH PRN IV PUSH RESPIRATORY RATE LESS THAN 10 03/25/17 21:00 Furosemide (Lasix) 40 mg BID@09,18 PO 03/26/17 18:00 Future Hold 03/27/17 09:00 Sodium Chloride 1,000 ml @ 100 mls/hr Q10H IV 03/27/17 11:30 03/28/17 07:29 03/27/17 12:42 Tenofovir Disoproxil Fumarate (Viread) 300 mg DAILY PO 03/28/17 09:00 (Shanta Jones) Medical Decision Making MDM Remarks 67 y/o male with osteomyelitis, discitis, large epidural abscess with severe canal stenosis/cord compression at L1-2, lower extremity weakness, intractable lumbar pain s/p L1-2 laminectomy with evacuation of epidural abscess and placement of wound vac 03/25/17 (Shanta Jones) Plan Plan Remarks cont wound vac therapy awaiting custom molded TLSO brace, keep bed rest until brace available PT, OOB with TLSO brace and assistance cont supportive care - pain control cont antibiotics per ID dw wound ostomy nurse int the afternoon, change vac dressing to SHAMIKA dressing (Shanta Jones) Attending Statement The exam, history, and the medical decision-making described in the above note were completed with the assistance of the mid-level provider. I reviewed and agree with the findings presented. I attest that I had a [id number] encounter with the patient on the same day, and personally performed and documented my assessment and findings in the medical record. (Paras Fitzgerald MD) Shanta Jones Mar 27, 2017 16:18 Paras Fitzgerald MD Mar 27, 2017 21:08
--- NOTE | 2017-03-27 16:46 | PD.WCN.NOT ---
Wound Consult Recommendation: Continue Shamika dressing changes to medial lumbar back incision as recommended by neurosurgery. Dressings can be changed every 3 to 5 days. Neg Pressure Wound Therapy Wound Location Wound Location: Medial lumbar incision Wound Description Length: 4.2cm Width: 0.7cm Depth: 0.4cm Wound bed appearance: 100% beefy red granulation tissue minimal active sanguinous drainage without odor. Periwound appearance: Unremarkable Settings Suction: Other (80 mm/hg suction continuous low) Intensity: Low Number of pieces: other (No foam was used, one dressing pad was used) Additonal Information Patient seen on [address] [place] [address] for SHAMIKA dressing application. Spoke with Shanta PATEL for Doctor Fitzgerald and Doctor Fitzgerald is requesting SHAMIKA NPWT dressing be placed on incision. Patient was premedicated for pain prior to dressing application. Removed bordered gauze and calcium alginate in place to reveal wound. Wound measures 4.2cm x 0.7cm x 0.4cm. Cleansed wound with normal saline. Skin prep was then applied to periwound. 4x 8inch Shamika dressing was then placed over wound , with portion of tubing with suction pad placed distal to the wound due to TOM drain in place at close proximity to wound at 12 o'clock. Window paned dressing with transparent drape strips. Patient tolerated procedure fairly with pain medication.SHAMIKA NPTW functioning properly. Patinet psositioned for comfort before leaving room with the assistance of Ej VEE [address] [place] [address] Date of Surgery: Mar 25, 2017 Archana Espino Mar 27, 2017 16:46
[2017-03-27] MEDS: ENOXAPARIN SODIUM 40 MG/0.4 ML SYRINGE SQ SCH (16:54)
[2017-03-27 20:00] VITALS: BP 100/58; PULSE 106; RESP 20; TEMP 100.2; O2SAT 95
[2017-03-27] MEDS: DEXTROSE 50% IN WATER 50 ML VIAL(D50) IV PUSH PRN (20:00)
[2017-03-28] VITALS (8 sets, daily range): BP systolic 98–128; BP diastolic 57–66; PULSE 91–105; RESP 18–20; TEMP 98.1–99.1; O2SAT 95–97
[2017-03-28] MEDS: DOXYCYCLINE HYCLATE 100 MG TAB PO SCH ×3 (00:08→23:01)
[2017-03-28] MEDS: OXACILLIN INJ 2 GM in SODIUM CHLORIDE 0.9% INJ 100 ML IV SCH ×5 (01:00→17:41)
[2017-03-28] MEDS: INSULIN ASPART SUPPLEMENTAL SCALE SQ SCH ×6 (04:00→20:00)
[2017-03-28 08:00] LABS: HEMATOCRIT 22.9 % (39.0-51.0); MEAN CELL VOLUME 82.4 FL (80.0-100.0); MEAN CORPUSCULAR HEMOGLOBIN 26.6 PG (27.0-34.0); MEAN CORPUSCULAR HGB CONC 32.3 % (32.0-36.0); PLATELET COUNT 190 TH/MM3 (150-450); RED BLOOD COUNT 2.78 MIL/MM3 (4.50-5.90); RED CELL DISTRIBUTION WIDTH 17.9 % (11.6-17.2); REVIEW FLAG FINAL; WHITE BLOOD COUNT 11.7 TH/MM3 (4.0-11.0)
[2017-03-28] MEDS: INSULIN ASPART 1,000 UNITS/10 ML VIAL SQ SCH ×3 (08:00→17:00)
[2017-03-28 08:31] LABS: BICARBONATE 27.9 MEQ/L (21.0-32.0); POTASSIUM 4.4 MEQ/L (3.5-5.1)
[2017-03-28] MEDS: SODIUM CHLORIDE 0.9% FLUSH 5 ML FLUSH IVF SCH ×2 (08:40→21:00)
[2017-03-28] MEDS: BUDESONIDE-FORMOTEROL 160/4.5 MCG INHALER INH SCH ×2 (08:40→21:00)
[2017-03-28] MEDS: PANTOPRAZOLE SOD 40 MG DELAYED RELEASE TAB PO SCH (08:43)
[2017-03-28] MEDS: LISINOPRIL 20 MG TAB PO SCH (08:43)
[2017-03-28] MEDS: POTASSIUM CHLORIDE 20 MEQ CONTROLLED RELEASE TAB PO SCH (08:43)
[2017-03-28] MEDS: MULTIVITAMIN HEMATINIC THERAPEUTIC TAB PO SCH (08:44)
[2017-03-28] MEDS: GABAPENTIN 300 MG CAP PO SCH ×3 (08:44→17:41)
[2017-03-28] MEDS: MORPHINE SULFATE 15 MG CONTROLLED RELEASE TAB PO SCH ×2 (08:44→23:01)
[2017-03-28] MEDS: DOCUSATE SODIUM 100 MG CAP PO SCH ×2 (08:44→21:57)
[2017-03-28] MEDS: FAMOTIDINE 20 MG TAB PO SCH ×2 (08:45→22:04)
[2017-03-28] MEDS: ASCORBIC ACID 500 MG TAB PO SCH (08:45)
[2017-03-28] MEDS: FLUCONAZOLE 100 MG TAB PO SCH (08:45)
[2017-03-28] MEDS: ALBUMIN 25% INJ 100 ML IV SCH ×2 (08:48→21:57)
[2017-03-28] MEDS: TENOFOVIR DISOPROXIL FUMARATE 300 MG TAB PO SCH (08:50)
[2017-03-28] MEDS: INSULIN DETEMIR 100 UNITS/ML VIAL SQ SCH ×2 (08:50→23:02)
--- NOTE | 2017-03-28 12:16 | HHI.PR ---
Subjective Remarks The patient said that he was doing better. He said he got sleep overnight. He said he has not been urinating as much lately. He was concerned about his kidney function. Objective Vitals Vital Signs Date Time Temp Pulse Resp B/P (MAP) Pulse Ox O2 Delivery O2 Flow Rate FiO2 03/28/17 10:00 97 03/28/17 08:00 98.9 91 18 103/57 (72) 96 03/28/17 05:45 100 03/28/17 04:00 98.1 91 20 106/62 (77) 95 03/28/17 00:00 98.6 93 20 98/59 (72) 96 03/27/17 22:00 17 03/27/17 21:27 21 03/27/17 20:00 100.2 106 20 100/58 (72) 95 03/27/17 16:57 22 03/27/17 16:00 99.2 104 18 146/69 (94) 93 03/27/17 14:00 21 I/O 03/27/17 03/27/17 03/27/17 03/28/17 03/28/17 03/28/17 07:00 15:00 23:00 07:00 15:00 23:00 Intake Total 964 ml 240 ml 100 ml Output Total 1273 ml 500 ml 825 ml 1100 ml Balance -309 ml -500 ml -585 ml -1100 ml 100 ml Intake Oral 240 ml IV Total 964 ml 100 ml Output Urine Total 1250 ml 500 ml 825 ml 1100 ml Drainage Total 23 ml # Voids 2 1 Result Diagram: 03/28/17 0634 03/28/17 0634 Imaging Last Impressions Chest X-Ray 03/26/17 0000 Signed Impressions: Service Date/Time: Sunday, March 26, 2017 11:15 - CONCLUSION: Minimal bibasilar parenchymal changes. Parker Way MD FACR Lumbar Spine X-Ray 03/25/17 0000 Signed Impressions: Service Date/Time: Saturday, March 25, 2017 13:17 - CONCLUSION: Instruments overlie the posterior elements at the L1-L2 level. Vishal Oneal MD Lumbar Spine MRI 03/25/17 0000 Signed Impressions: Service Date/Time: Saturday, March 25, 2017 08:45 - CONCLUSION: Discitis at L1-2 with adjacent osteomyelitis. Significant paraspinal and epidural abscess and bilateral psoas abscesses. Moderate degenerative spondylosis throughout the remainder of the lumbar spine with fairly severe canal stenosis at L4-5 and less prominent changes at other levels as described Vishal Osorio MD Lower Extremity Ultrasound 03/24/17 0000 Signed Impressions: Service Date/Time: Friday, March 24, 2017 12:42 - CONCLUSION: Negative for deep venous thrombosis. Parker Way MD FACR Scrotum Ultrasound 03/23/17 0000 Signed Impressions: Service Date/Time: Thursday, March 23, 2017 12:04 - CONCLUSION: Bilateral testicular atrophy. No torsion, inflammatory changes or other acute abnormality seen. Vishal Cevallos MD Abdomen Ultrasound 03/21/17 0000 Signed Impressions: Service Date/Time: Tuesday, March 21, 2017 15:29 - CONCLUSION: Only trace ascites which is inadequate for paracentesis. Michael Philip MD Abdomen/Pelvis CT 03/13/17 0000 Signed Impressions: Service Date/Time: February 15:19 - CONCLUSION: 1. Moderate-sized bilateral effusions with consolidative changes. 2. Moderate hepatosplenomegaly. 3. Ascites diffusely throughout the abdomen. 4. Compared to previous the effusions have enlarged. The ascites is new. The liver and spleen are stable in size. Natalio Way MD Objective Remarks GENERAL: Appears comfortable. SKIN: No rashes, warm and dry HEAD: Atraumatic. Normocephalic. EYES: Pupils equal round and reactive. Extraocular motions intact. No scleral icterus. ENT: Nose without bleeding, or drainage, Airway patent. NECK: Trachea midline. Supple CARDIOVASCULAR: Tachycardic. RESPIRATORY: Fair air entry bilaterally. No wheezes, rales, or rhonchi. GASTROINTESTINAL: Abdomen soft, generally tender to palpation, nondistended. Positive bowel sounds MUSCULOSKELETAL: No edema in the lower extremities. NEUROLOGICAL: Awake and alert. Moves all extremity. Normal speech. No focal neurological deficit. PSYCH: Mood and affect appropriate. Procedures L1-2 laminectomy, evacuation of lumbar spinal epidural abscess 03/25 Medications and IVs Current Medications Medications (Trade) Dose Ordered Sig/Jaya Route Start Time Stop Time Status Last Admin (Zofran Inj) 4 mg Q6H PRN IVP 03/10/17 14:30 03/15/17 15:00 (Narcan Inj) 0.4 mg UNSCH PRN IV PUSH 03/10/17 14:30 (Duoneb Neb) 1 ampule Q2HR NEB PRN NEB 03/10/17 14:30 (Symbicort 160-4.5 Inh) 1 puff Q12HR INH 03/10/17 21:00 03/28/17 08:40 (D50w (Vial) Inj) 50 ml UNSCH PRN IV PUSH 03/11/17 17:15 03/27/17 20:00 (Glucagon Inj) 1 mg UNSCH PRN OTHER 03/11/17 17:15 (Vasotec Inj) 1.25 mg Q6H PRN IV PUSH 03/11/17 17:15 (Pepcid) 20 mg BID PO 03/13/17 21:00 03/28/17 08:45 (Imodium) 2 mg Q4H PRN PO 03/14/17 10:00 03/15/17 15:08 (Theragran Hematinic) 1 tab DAILY PO 03/15/17 09:00 03/28/17 08:44 (Vitamin C) 1,000 mg DAILY PO 03/15/17 09:00 03/28/17 08:45 Patient Own Medication (Linagliptin (Tradjenta) 5 MG DAILY PO 03/17/17 10:00 Future Hold Oxacillin Sodium 2 gm/Sodium Chloride 100 ml @ 200 mls/hr Q4H IV 03/18/17 17:00 03/28/17 10:06 (Aldactone) 25 mg DAILY PO 03/19/17 15:00 Future Hold 03/27/17 08:58 Albumin Human 100 ml @ 60 mls/hr Q12H IV 03/19/17 20:00 03/28/17 08:48 (Levemir Inj) 17 units BID SQ 03/21/17 09:00 03/27/17 08:54 (NovoLOG INJ) 7 units TIDAC SQ 03/21/17 08:00 03/27/17 17:57 (Diflucan) 100 mg DAILY PO 03/21/17 10:30 03/28/17 08:45 (Oramorph Sr) 45 mg Q12HR PO 03/22/17 21:00 03/28/17 08:44 (Neurontin) 300 mg TID PO 03/24/17 09:00 03/28/17 08:44 (Vibratab) 100 mg Q12H PO 03/24/17 12:00 03/28/17 00:08 (NS Flush) 2 ml UNSCH PRN IVF 03/25/17 15:45 (NS Flush) 2 ml BID IVF 03/25/17 21:00 03/28/17 08:40 (Colace) 100 mg BID PO 03/25/17 21:00 03/28/17 08:44 (Protonix) 40 mg DAILY PO 03/26/17 09:00 03/28/17 08:43 ([place] 10-325 Mg) 1 tab Q4H PRN PO 03/25/17 15:45 ([place] 10-325 Mg) 2 tab Q4H PRN PO 03/25/17 15:45 03/27/17 14:31 (Morphine Inj) 2 mg Q2H PRN IV PUSH 03/25/17 15:45 (Morphine Inj) 4 mg Q2H PRN IV PUSH 03/25/17 15:45 03/27/17 15:09 (Tylenol) 650 mg Q4H PRN PO 03/25/17 15:45 (NovoLOG SUPPLEMENTAL SCALE) 1 Q4HR SQ 03/25/17 20:00 03/27/17 17:56 (Dilaudid TELEPHONE COIN BOX COLLECTOR Inj) 6 mg UNSCH IV 03/25/17 21:15 03/27/17 16:57 TELEPHONE COIN BOX COLLECTOR Dosage Infused (Pha) 1 Q8HR .XX 03/25/17 22:00 03/27/17 22:00 (Narcan Inj) 0.4 mg UNSCH PRN IV PUSH 03/25/17 21:00 (Viread) 300 mg DAILY PO 03/28/17 09:00 03/28/17 08:50 (Heparin Inj) 5,000 units Q8HR SQ 03/28/17 21:00 UNV A/P Problem List: (1) Staphylococcus aureus bacteremia with sepsis ICD Code: A41.01 - Sepsis due to Methicillin susceptible Staphylococcus aureus Status: Acute (2) Liver cirrhosis ICD Code: K74.60 - Unspecified cirrhosis of liver (3) Uncontrolled hypertension ICD Code: I10 - Essential (primary) hypertension (4) COPD (chronic obstructive pulmonary disease) ICD Code: J44.9 - Chronic obstructive pulmonary disease, unspecified (5) Diabetes mellitus with hyperglycemia ICD Code: E11.65 - Type 2 diabetes mellitus with hyperglycemia Status: Chronic (6) Pleural effusion ICD Code: J90 - Pleural effusion, not elsewhere classified (7) Hyponatremia ICD Code: E87.1 - Hypo-osmolality and hyponatremia (8) Ascites of liver ICD Code: R18.8 - Other ascites Status: Chronic (9) Anemia ICD Code: D64.9 - Anemia, unspecified Status: Chronic (10) Anasarca ICD Code: R60.1 - Generalized edema Status: Acute (11) Abdominal pain ICD Code: R10.9 - Unspecified abdominal pain Status: Acute (12) Testicular pain, left ICD Code: N50.812 - Left testicular pain Status: Acute (13) UTI (urinary tract infection) ICD Code: N39.0 - Urinary tract infection, site not specified Status: Acute (14) Back pain ICD Code: M54.9 - Dorsalgia, unspecified Status: Acute (15) Low grade fever ICD Code: R50.9 - Fever, unspecified Status: Acute (16) Bilateral leg edema ICD Code: R60.0 - Localized edema Status: Acute (17) Discitis of lumbar region ICD Code: M46.46 - Discitis, unspecified, lumbar region Status: Acute (18) Epidural abscess ICD Code: G06.2 - Extradural and subdural abscess, unspecified Status: Acute (19) Osteomyelitis of vertebra of lumbosacral region ICD Code: M46.27 - Osteomyelitis of vertebra, lumbosacral region Status: Acute (20) Psoas abscess ICD Code: K68.12 - Psoas muscle abscess Status: Acute Assessment and Plan Discitis/ osteomyelitis/ epidural abscess/ bilateral psoas abscess Patient complains of lumbar spine pain, on exam patient has tenderness to palpation of lumbar spine and right lower extremity weakness. 03/25 Lumbar spine mri shows discitis, osteomyelitis, epidural abscess, and bilateral psoas abscess. Placed a stat neurosurgery consultation, discussed the case with Dr Amilcar Richardson's orthotics prosthetics assistant who reviewed MRI and discussed the case with him and said patient needs to have surgery. S/p L1-2 laminectomy, evacuation of lumbar spinal epidural abscess 03/25. - follow up with neurosurgery. - pain control. - PT. - antibiotics per ID. Staphylococcus aureus bacteremia with sepsis The patient was admitted to the medical floor, treated with IV antibiotics, infectious disease consulted. Source likely the urine since urine culture is growing MSSA. - The patient has been started on fluconazole for yeast urine on 03/21. Continue antibiotics as per ID recommendations. The patient currently on oxacillin 2 g IV every 4 hours. - The patient was started on oral doxycycline for left testicular pain and suspected epididymitis. Acute renal failure With elevated BUN, likely s/t diuretic use. - hold diuretics and lisinopril. - IVFs. - avoid nephrotoxic agents. - check UA, urine creatinine and urine sodium. - renal US pending. - consult nephrology in AM if no improvement. Left testicular pain Testicular ultrasound showed bilateral testicular atrophy. No distortion, inflammatory changes or other acute abnormality seen. GC/chlamydia PCR negative. - started the patient on oral doxycycline 100 mg by mouth twice a day for 7 days to treat the patient empirically for epididymitis. Liver cirrhosis/ Hepatitis B Abdomen and pelvis CT performed on 03/13/17 show moderate-sized bilateral pleural effusions with consolidative changes. Moderate hepatosplenomegaly. Ascites diffusely throughout the abdomen which compared to a previous CT abdomen and pelvis obtained on 03/10/17 was increased. There is a report of more prominent portal vein and interval enlargement of the spleen which measures 17.7 cm, findings consistent with increasing portal hypertension. - Ultrasound-guided abdominal paracentesis was ordered, however there is not enough fluid for the procedure to be done. - holding diuresis in the setting of ARF. - GI following. Started on tenofovir for treatment of hepatitis B. Uncontrolled hypertension Blood pressure initially uncontrolled. Better controlled after dose of lisinopril increased. - Continue to monitor bp. Well-controlled at this time. - hold lisinopril in the setting of renal insufficiency. COPD (chronic obstructive pulmonary disease On prednisone for COPD which seems to be stable. - s/p prednisone taper. Diabetes mellitus with hyperglycemia Blood sugars are still labile. - Continue basal bolus therapy with insulin Levemir and prandial insulin NovoLog. - Place on diabetic diet and high NovoLog insulin scale. Continue to monitor Accu-Cheks. Pleural effusion Pleural effusion likely overload and diastolic congestive heart failure secondary to liver cirrhosis. Echocardiogram shows a normal systolic function with an EF in the range of 55-60%. Wall thickness measure at the upper limits of normal. - holding diuretics. Celiac artery stenosis/ Abdominal pain 03/21 ultrasound of the abdomen SMA/celiac Doppler showed a greater than 70% stenosis in the celiac artery. Less than 50% stenosis in the mesenteric artery. Vascular surgery recommendations appreciated. Discussed the case with Dr. Gurrola who states that abdominal pain is not coming from this finding. - Recommended outpatient treatment with pain project control analyst. Acute blood loss anemia Iron low, ferritin normal. TIBC and percent saturation not done. Ordered. Anemic following surgery. - 2 units prbc ordered 03/26. Follow CBC and transfuse additional unit if indicated. Stable. GI Prophylaxis: Continue PPI. 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
[2017-03-28] MEDS: HYDROmorphone HCL PCA 6 MG/30 ML IV SCH (13:08)
[2017-03-28] MEDS: PCA - TOTAL MG DILAUDID DELIVERED PER SHIFT SCH ×3 (13:09→22:00)
--- NOTE | 2017-03-28 14:00 | HHI.IDPN ---
Note Infectious Disease Note Patient is status post evacuation of lumbar spine epidural abscess/L1L2 laminectomy. Now having significant amount of back pain. Afebrile. Blood culture 03/25, 03/21 and 03/17 - no growth. Prior blood culture on 03/10 - staph aureus and urine culture had staph aureus. 2D ECHO has no vegetations. The patient underwent right colon resection and also small bowel resection for ischemic cecum and fascia and partial ischemia of the distal terminal ileum on 01/29/2017. After the surgery and he also had report of Clostridium perfringens at the margins of the surgical tissue on the pathology specimen. PAST MEDICAL HISTORY: 1. Esophageal varices. 2. Hepatitis C. 3. History of cirrhosis. 4. Recent bowel resection. 5. Diabetes mellitus. 6. History of laparoscopic cholecystectomy. 7. History of back surgery. 8. Neuropathy. 9. Vasectomy. 10. History of bladder cancer. 11. History of bilateral knee surgery. 12. History of banding of esophageal varices. ALLERGIES: 1. PENTAZOCINE. 2. CODEINE. 3. KETORFANOL. 4. IV DYE. 5. IODINATED CONTRAST. ANTIBIOTICS: Oxacillin. fluconazole. SOCIAL HISTORY: No alcohol use. No illicit drugs. FAMILY HISTORY: Noncontributory. OBJECTIVE: Vital Signs Date Time Temp Pulse Resp B/P (MAP) Pulse Ox O2 Delivery O2 Flow Rate FiO2 03/28/17 13:14 20 03/28/17 13:08 20 03/28/17 10:00 97 03/28/17 08:00 98.9 91 18 103/57 (72) 96 03/28/17 05:45 100 03/28/17 04:00 98.1 91 20 106/62 (77) 95 03/28/17 00:00 98.6 93 20 98/59 (72) 96 03/27/17 22:00 17 03/27/17 21:27 21 03/27/17 20:00 100.2 106 20 100/58 (72) 95 03/27/17 16:57 22 03/27/17 16:00 99.2 104 18 146/69 (94) 93 03/27/17 14:00 21 Laboratory Tests Test 03/26/17 22:35 03/27/17 09:30 03/28/17 06:34 White Blood Count 14.0 TH/MM3 12.3 TH/MM3 11.7 TH/MM3 Red Blood Count 2.91 MIL/MM3 2.83 MIL/MM3 2.78 MIL/MM3 Hemoglobin 8.0 GM/DL 7.7 GM/DL 7.4 GM/DL Hematocrit 23.9 % 23.0 % 22.9 % Mean Corpuscular Volume 82.1 FL 81.5 FL 82.4 FL Mean Corpuscular Hemoglobin 27.6 PG 27.1 PG 26.6 PG Mean Corpuscular Hemoglobin Concent 33.6 % 33.3 % 32.3 % Red Cell Distribution Width 17.1 % 17.5 % 17.9 % Platelet Count 191 TH/MM3 196 TH/MM3 190 TH/MM3 Mean Platelet Volume 8.1 FL 8.5 FL 8.3 FL Laboratory Tests Test 03/26/17 19:25 03/26/17 22:35 03/27/17 09:30 03/27/17 20:47 Troponin I LESS THAN 0.02 NG/ML LESS THAN 0.02 NG/ML Blood Urea Nitrogen 30 MG/DL Creatinine 1.65 MG/DL Random Glucose 118 MG/DL 63 MG/DL Calcium Level 8.1 MG/DL Sodium Level 137 MEQ/L Potassium Level 4.3 MEQ/L Chloride Level 100 MEQ/L Carbon Dioxide Level 28.0 MEQ/L Anion Gap 9 MEQ/L Estimat Glomerular Filtration Rate 42 ML/MIN Magnesium Level 2.0 MG/DL Test 03/28/17 06:34 Blood Urea Nitrogen 33 MG/DL Creatinine 1.73 MG/DL Random Glucose 166 MG/DL Calcium Level 8.2 MG/DL Magnesium Level 2.0 MG/DL Sodium Level 136 MEQ/L Potassium Level 4.4 MEQ/L Chloride Level 100 MEQ/L Carbon Dioxide Level 27.9 MEQ/L Anion Gap 8 MEQ/L Estimat Glomerular Filtration Rate 40 ML/MIN Microbiology Date/Time Source Procedure Growth Status 03/25/17 22:55 Blood Peripheral Aerobic Blood Culture - Preliminary NO GROWTH IN 3 DAYS Resulted 03/25/17 22:55 Blood Peripheral Anaerobic Blood Culture - Preliminary NO GROWTH IN 3 DAYS Resulted 03/25/17 14:30 Wound Back Fungal Smear - Final NO FUNGAL ELEMENTS SEEN. Resulted 03/25/17 14:30 Wound Back Fungal Culture Pending Resulted 03/25/17 14:30 Wound Back Acid Fast Stain - Final NO ACID FAST BACILLI SEEN Resulted 03/25/17 14:30 Wound Back Mycobacterial Culture Pending Resulted 03/25/17 14:30 Wound Back Gram Stain - Final Complete 03/25/17 14:30 Wound Culture - Final Staphylococcus Aureus Complete 03/25/17 14:30 Wound Back Fungal Smear - Final NO FUNGAL ELEMENTS SEEN. Resulted 03/25/17 14:30 Wound Back Fungal Culture Pending Resulted 03/25/17 14:30 Wound Back Acid Fast Stain - Final NO ACID FAST BACILLI SEEN Resulted 03/25/17 14:30 Wound Back Mycobacterial Culture Pending Resulted 03/25/17 14:30 Wound Back Gram Stain - Final Complete 03/25/17 14:30 Wound Culture - Final Staphylococcus Aureus Complete 03/25/17 14:30 Wound Back Fungal Smear - Final NO FUNGAL ELEMENTS SEEN. Resulted 03/25/17 14:30 Wound Back Fungal Culture Pending Resulted 03/25/17 14:30 Wound Back Acid Fast Stain - Final NO ACID FAST BACILLI SEEN Resulted 03/25/17 14:30 Wound Back Mycobacterial Culture Pending Resulted 03/25/17 14:30 Wound Back Gram Stain - Final Complete 03/25/17 14:30 Wound Culture - Final Staphylococcus Aureus Complete IMAGING: Chest X-Ray 03/26/17 0000 Signed Impressions: Service Date/Time: Sunday, March 26, 2017 11:15 - CONCLUSION: Minimal bibasilar parenchymal changes. Parker Way MD FACR Lumbar Spine MRI 03/25/17 0000 Signed Impressions: Service Date/Time: Saturday, March 25, 2017 08:45 - CONCLUSION: Discitis at L1-2 with adjacent osteomyelitis. Significant paraspinal and epidural abscess and bilateral psoas abscesses. Moderate degenerative spondylosis throughout the remainder of the lumbar spine with fairly severe canal stenosis at L4-5 and less prominent changes at other levels as described Vishal Osorio MD Lower Extremity Ultrasound 03/24/17 0000 Signed Impressions: Service Date/Time: Friday, March 24, 2017 12:42 - CONCLUSION: Negative for deep venous thrombosis. Parker Way MD FACR Abdomen Ultrasound 03/20/17 0000 Signed Impressions: Service Date/Time: March 18:32 - CONCLUSION: 1. 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 2. Less than 50%% stenosis in the superior mesenteric artery. Jase Estes MD Abdomen/Pelvis CT 03/13/17 0000 Signed Impressions: Service Date/Time: February 15:19 - CONCLUSION: 1. Moderate-sized bilateral effusions with consolidative changes. 2. Moderate hepatosplenomegaly. 3. Ascites diffusely throughout the abdomen. 4. Compared to previous the effusions have enlarged. The ascites is new. The liver and spleen are stable in size. Natalio Way MD Chest X-Ray 03/10/17 0000 Signed Impressions: Service Date/Time: Friday, March 10, 2017 12:09 - CONCLUSION: No acute disease. There is no evidence of pneumonia. Jase Estes MD PHYSICAL EXAMINATION: GENERAL: No acute distress. Awake and alert and oriented. HEENT: No icterus. Oropharynx moist mucosa without lesions. NECK: Supple. LUNGS: Clear breath sounds. HEART: Regular S1-S2 without murmurs, rubs or gallops. ABDOMEN: Midline surgical incision appears intact. Positive bowel sounds. : Tenderness at the left testicle. EXTREMITIES: No clubbing, cyanosis or edema. SKIN: No rash. NEUROLOGIC: Weakness at the lower extremities. PSYCHIATRIC: Calm and cooperative. IMPRESSION: 1. Bacteremia due to staph aureus. Persistent positive blood cultures. - Discitis and osteomyelitis at L1- L2 and epidural, paraspinal and psoas abscess bilateral. Staph aureus. - post evacuation of lumbar spine epidural abscess/L1L2 laminectomy. 2. Urinary tract infection due to staph aureus. 3. Abdominal pain of questionable etiology. Most likely had referred pain from psoas abscess, discitis. 4. Fever low grade. Improved. 5. Probable epididymitis/orchitis. RECOMMENDATIONS: 1. Continue Oxacillin IV. 2. Continue Doxycycline. 3. Stop Fluconazole. 4. Monitor temp and WBC. Florentino Burnette MD Mar 28, 2017 14:00
--- NOTE | 2017-03-28 15:10 | HHI.NSPN ---
(Shanta Jones) Note Status Status: Progress Note (Shanta Jones) Interval History Interval History Mr. Parks is a 66-year-old male who was admitted secondary to right lower quadrant pain with sepsis. She has a history of a bowel resection approximately 1.5 months ago. There was suspicion of bacterial enteritis or colitis is present in place since his recent surgical site at risk so close monitoring and treatments are initiated. His surgeon has been consulted. Nausea and vomiting was present at time of admit. he is a smoker. history of COPD. Three weeks ago he underwent a laparotomy. He has developed extremely severe pain with radiculopathy in his right lower extremity, and now significant weakness in his legs. No incontinence of stool or urine. MRI L spine showed a large epidural abscess with spinal cord compression. neurosurgical consultation was requested. s/p L1-2 laminectomy with evacuation of lumbar spinal epidural abscess, and placement of wound vac 03/25/1703/26: laying in bed alert. c/o of intractable back pain - has MANAGING COGNITIVE ENGINEER pump at bedside, stable lower extremity weakness 03/27: pt seen this morning during rounds, persistent intractable lumbar pain. MANAGING COGNITIVE ENGINEER not controlling pain. 03/28: reports today he feels his lumbar pain and lower extremity strength slowly improving. custom TLSO delivered. (Shanta Jones) Labs, Micro, & Vital Signs Results Date Time Temp Pulse Resp B/P (MAP) Pulse Ox O2 Delivery O2 Flow Rate FiO2 03/28/17 13:14 20 03/28/17 13:08 20 03/28/17 12:00 98.9 91 18 116/66 (83) 96 03/28/17 10:00 97 03/28/17 08:00 98.9 91 18 103/57 (72) 96 03/28/17 05:45 100 03/28/17 04:00 98.1 91 20 106/62 (77) 95 03/28/17 00:00 98.6 93 20 98/59 (72) 96 03/27/17 22:00 17 03/27/17 21:27 21 03/27/17 20:00 100.2 106 20 100/58 (72) 95 03/27/17 16:57 22 03/27/17 16:00 99.2 104 18 146/69 (94) 93 03/29/17 07:00 Intake Total 200 ml Balance 200 ml Constitutional Vital Signs Date Time Temp Pulse Resp B/P (MAP) Pulse Ox O2 Delivery O2 Flow Rate FiO2 03/28/17 13:14 20 03/28/17 13:08 20 03/28/17 12:00 98.9 91 18 116/66 (83) 96 03/28/17 10:00 97 03/28/17 08:00 98.9 91 18 103/57 (72) 96 03/28/17 05:45 100 03/28/17 04:00 98.1 91 20 106/62 (77) 95 03/28/17 00:00 98.6 93 20 98/59 (72) 96 03/27/17 22:00 17 03/27/17 21:27 21 03/27/17 20:00 100.2 106 20 100/58 (72) 95 03/27/17 16:57 22 03/27/17 16:00 99.2 104 18 146/69 (94) 93 03/29/17 07:00 Intake Total 200 ml Balance 200 ml (Shanta Jones) Review of Systems Constitutional: DENIES: Fever Musculoskeletal: COMPLAINS OF: Back pain Neurologic: COMPLAINS OF: Localized weakness (Shanta Jones) Physical Exam Mr. Parks is alert, no acute distress. Speech is fluent. Follows commands well. Cranial nerve examination: pupils equal. Facial motor symmetrical. Neck is soft and supple. Muscle strength: moves upper extremities with good strength. In the lower extremities, strength is 4-/5 in both iliopsoas, quadriceps, hamstrings, 4+ to 5 -/5 plantar flexion, dorsiflexion. Sensory examination is grossly intact to light touch in both lower extremities, symmetrically. Wound with wound vac in place. TOM drain with minimal drainage. (Shanta Jones) Medications Current Medications Current Medications Medications (Trade) Dose Ordered Sig/Jaya Route PRN Reason Start Time Stop Time Status Last Admin Dose Admin Ondansetron HCl (Zofran Inj) 4 mg Q6H PRN IVP NAUSEA OR VOMITING 03/10/17 14:30 03/15/17 15:00 Naloxone HCl (Narcan Inj) 0.4 mg UNSCH PRN IV PUSH SEE LABEL COMMENTS 03/10/17 14:30 Albuterol/ Ipratropium (Duoneb Neb) 1 ampule Q2HR NEB PRN NEB SHORTNESS OF BREATH 03/10/17 14:30 Budesonide/ Formoterol Fumarate (Symbicort 160-4.5 Inh) 1 puff Q12HR INH 03/10/17 21:00 03/28/17 08:40 Dextrose (D50w (Vial) Inj) 50 ml UNSCH PRN IV PUSH HYPOGLYCEMIA-SEE COMMENTS 03/11/17 17:15 03/27/17 20:00 Glucagon (Glucagon Inj) 1 mg UNSCH PRN OTHER HYPOGLYCEMIA-SEE COMMENTS 03/11/17 17:15 Enalaprilat (Vasotec Inj) 1.25 mg Q6H PRN IV PUSH SBP>160, DBP>90 03/11/17 17:15 Famotidine (Pepcid) 20 mg BID PO 03/13/17 21:00 03/28/17 08:45 Loperamide HCl (Imodium) 2 mg Q4H PRN PO Diarrhea 03/14/17 10:00 03/15/17 15:08 Multivitamin Hematinic Therapeutic (Theragran Hematinic) 1 tab DAILY PO 03/15/17 09:00 03/28/17 08:44 Ascorbic Acid (Vitamin C) 1,000 mg DAILY PO 03/15/17 09:00 03/28/17 08:45 Patient Own Medication (Linagliptin (Tradjenta) 5 MG DAILY PO 03/17/17 10:00 Future Hold Oxacillin Sodium 2 gm/Sodium Chloride 100 ml @ 200 mls/hr Q4H IV 03/18/17 17:00 03/28/17 13:10 Spironolactone (Aldactone) 25 mg DAILY PO 03/19/17 15:00 Future Hold 03/27/17 08:58 Albumin Human 100 ml @ 60 mls/hr Q12H IV 03/19/17 20:00 03/28/17 08:48 Insulin Detemir (Levemir Inj) 17 units BID SQ 03/21/17 09:00 03/27/17 08:54 Insulin Aspart (NovoLOG INJ) 7 units TIDAC SQ 03/21/17 08:00 03/28/17 13:10 Morphine Sulfate (Oramorph Sr) 45 mg Q12HR PO 03/22/17 21:00 03/28/17 08:44 Gabapentin (Neurontin) 300 mg TID PO 03/24/17 09:00 03/28/17 13:10 Doxycycline Hyclate (Vibratab) 100 mg Q12H PO 03/24/17 12:00 03/28/17 13:10 IV Flush (NS Flush) 2 ml UNSCH PRN IVF FLUSH AFTER USING IV ACCESS 03/25/17 15:45 IV Flush (NS Flush) 2 ml BID IVF 03/25/17 21:00 03/28/17 08:40 Docusate Sodium (Colace) 100 mg BID PO 03/25/17 21:00 03/28/17 08:44 Pantoprazole Sodium (Protonix) 40 mg DAILY PO 03/26/17 09:00 03/28/17 08:43 Acetaminophen/ Hydrocodone Bitart ([place] 10-325 Mg) 1 tab Q4H PRN PO PAIN SCALE 1 TO 5 03/25/17 15:45 Acetaminophen/ Hydrocodone Bitart ([place] 10-325 Mg) 2 tab Q4H PRN PO PAIN SCALE 6 TO 10 03/25/17 15:45 03/27/17 14:31 Morphine Sulfate (Morphine Inj) 2 mg Q2H PRN IV PUSH PAIN SCALE 1 TO 6 03/25/17 15:45 Morphine Sulfate (Morphine Inj) 4 mg Q2H PRN IV PUSH PAIN SCALE 7 TO 10 03/25/17 15:45 03/27/17 15:09 Acetaminophen (Tylenol) 650 mg Q4H PRN PO TEMPERATURE > 101.5 F 03/25/17 15:45 Insulin Aspart (NovoLOG SUPPLEMENTAL SCALE) 1 Q4HR SQ 03/25/17 20:00 03/28/17 13:10 Hydromorphone HCl (Dilaudid MANAGING COGNITIVE ENGINEER Inj) 6 mg UNSCH IV 03/25/17 21:15 03/28/17 13:08 MANAGING COGNITIVE ENGINEER Dosage Infused (Pha) 1 Q8HR .XX 03/25/17 22:00 03/28/17 13:14 Naloxone HCl (Narcan Inj) 0.4 mg UNSCH PRN IV PUSH RESPIRATORY RATE LESS THAN 10 11/7/17 21:00 Tenofovir Disoproxil Fumarate (Viread) 300 mg DAILY PO 03/28/17 09:00 03/28/17 08:50 Heparin Sodium (Porcine) (Heparin Inj) 5,000 units Q8HR SQ 03/28/17 21:00 (Shanta Jones) Medical Decision Making MDM Remarks 67 y/o male with osteomyelitis, discitis, large epidural abscess with severe canal stenosis/cord compression at L1-2, lower extremity weakness, intractable lumbar pain s/p L1-2 laminectomy with evacuation of epidural abscess and placement of wound vac 03/25/17 (Shanta Jones) Plan Plan Remarks cont wound vac therapy - SHAMIKA dressing PT, clear OOB with custom TLSO brace and assistance encourage mobilization cont TOM draining until Friday cont antibiotics per ID cont supportive care (Shanta Jones) Attending Statement The exam, history, and the medical decision-making described in the above note were completed with the assistance of the mid-level provider. I reviewed and agree with the findings presented. I attest that I had a [id number] encounter with the patient on the same day, and personally performed and documented my assessment and findings in the medical record. (Paras Fitzgerald MD) Shanta Jones Mar 28, 2017 15:10 Paras Fitzgerald MD Apr 01, 2017 16:45
--- NOTE | 2017-03-28 19:48 | RADRPT ---
EXAM DATE/TIME: 03/28/2017 18:53 [facility] COMPARISON: US KIDNEY/RENAL/BLADDER, April 24, 2016, 18:06. INDICATIONS : Increased BUN and creatinine. MEDICAL HISTORY : Hypertension. Hypercholesterolemia. Chronic obstructive pulmonary disease. Hyperlipidemia. Neuropathy . Coarctation of aorta.Pancreatitis. Bladder cancer. Kidney stones. Paresthesia. Hepatitis C. Cirrho sis. Diabetes. Arthritis. SURGICAL HISTORY : Appendectomy. Cholecystectomy. Tympanostromy tube. Back surgery. Bowel resection. Spleen reconstruc tion. Vasectomy. ENCOUNTER: Initial ACUITY: 1 day PAIN SCORE: 0/10 LOCATION: Bilateral flank. MEASUREMENTS: RIGHT KIDNEY: 13.4 x 5.8 x 5.4 cm LEFT KIDNEY: 13.8 x 6.2 x 5.4 cm FINDINGS: RIGHT KIDNEY: There is mild hydronephrosis and proximal hydroureter. The kidney is normal in size and echotexture. LEFT KIDNEY: There is moderate hydronephrosis and proximal hydroureter. The kidney is normal in size and echotextu re. Some of the kidney is obscured by bowel gas. The previously seen hypoechoic lesion involving the left kidney on the prior study is not clearly evident on the current study due to the limitations by the bowel gas. BLADDER: Urinary bladder is without filling defect or mass. Post void residual is 300 cc. CONCLUSION: 1. Bilateral hydronephrosis and hydroureter more pronounced on the left. 2. 300 mL postvoid residual. Rey Monreal Jr., MD on March 28, 2017 at 19:44 Board Certified Radiologist. This report was verified electronically.
[2017-03-28] MEDS: HEPARIN SODIUM - SQ 10,000 UNITS/ML VIAL SQ SCH ×2 (23:02→23:06)
[2017-03-29] VITALS (9 sets, daily range): BP systolic 102–130; BP diastolic 55–74; PULSE 82–97; RESP 17–20; TEMP 97.6–99; O2SAT 95–97
[2017-03-29] MEDS: OXACILLIN INJ 2 GM in SODIUM CHLORIDE 0.9% INJ 100 ML IV SCH ×7 (01:44→21:46)
[2017-03-29] MEDS: INSULIN ASPART SUPPLEMENTAL SCALE SQ SCH ×6 (03:43→21:40)
[2017-03-29 04:45] LABS: BACTERIA, URINE RARE /hpf; BLOOD, URINE LARGE (NEG); COMMENT (UR) CULT NOT INDICATED; CULTURE IF INDICATED CULT NOT INDICATED; GLUCOSE,URINE NEG (NEG); KETONE, URINE NEG (NEG); NITRITE,URINE NEG (NEG); URINE COLOR YELLOW (YELLW/STRAW)
[2017-03-29] MEDS: PCA - TOTAL MG DILAUDID DELIVERED PER SHIFT SCH ×3 (06:00→21:48)
[2017-03-29] MEDS: HEPARIN SODIUM - SQ 10,000 UNITS/ML VIAL SQ SCH ×3 (06:53→21:44)
[2017-03-29 07:36] LABS: HEMATOCRIT 22.4 % (39.0-51.0); MEAN CELL VOLUME 81.7 FL (80.0-100.0); PLATELET COUNT 202 TH/MM3 (150-450); RED BLOOD COUNT 2.74 MIL/MM3 (4.50-5.90); RED CELL DISTRIBUTION WIDTH 17.7 % (11.6-17.2); REVIEW FLAG FINAL; WHITE BLOOD COUNT 9.7 TH/MM3 (4.0-11.0)
[2017-03-29 07:55] LABS: BICARBONATE 27.3 MEQ/L (21.0-32.0); MAGNESIUM 2.2 MG/DL (1.5-2.5); POTASSIUM 4.2 MEQ/L (3.5-5.1)
[2017-03-29] MEDS: ALBUMIN 25% INJ 100 ML IV SCH ×2 (08:11→21:39)
[2017-03-29] MEDS: MULTIVITAMIN HEMATINIC THERAPEUTIC TAB PO SCH (08:14)
[2017-03-29] MEDS: GABAPENTIN 300 MG CAP PO SCH ×3 (08:15→17:15)
[2017-03-29] MEDS: FAMOTIDINE 20 MG TAB PO SCH ×2 (08:15→21:43)
[2017-03-29] MEDS: DOCUSATE SODIUM 100 MG CAP PO SCH ×2 (08:15→21:43)
[2017-03-29] MEDS: PANTOPRAZOLE SOD 40 MG DELAYED RELEASE TAB PO SCH (08:15)
[2017-03-29] MEDS: TENOFOVIR DISOPROXIL FUMARATE 300 MG TAB PO SCH (08:15)
[2017-03-29] MEDS: ASCORBIC ACID 500 MG TAB PO SCH (08:15)
[2017-03-29] MEDS: MORPHINE SULFATE 15 MG CONTROLLED RELEASE TAB PO SCH ×2 (08:26→21:43)
[2017-03-29] MEDS: INSULIN ASPART 1,000 UNITS/10 ML VIAL SQ SCH (08:28)
[2017-03-29] MEDS: SODIUM CHLORIDE 0.9% FLUSH 5 ML FLUSH IVF SCH ×2 (08:28→21:43)
[2017-03-29] MEDS: INSULIN DETEMIR 100 UNITS/ML VIAL SQ SCH (08:28)
[2017-03-29] MEDS: BUDESONIDE-FORMOTEROL 160/4.5 MCG INHALER INH SCH ×2 (09:00→21:41)
--- NOTE | 2017-03-29 10:24 | HHI.PR ---
Subjective Remarks The patient stated that he needed to go to the bathroom. He was concerned about his kidneys. He said he was urinating a lot less. He said he still had a lot of abdominal pain. Discussed with nursing. Objective Vitals Vital Signs Date Time Temp Pulse Resp B/P (MAP) Pulse Ox O2 Delivery O2 Flow Rate FiO2 03/29/17 09:59 87 03/29/17 08:00 97.7 87 18 102/58 (73) 96 03/29/17 06:00 14 03/29/17 04:00 98.7 87 20 108/55 (72) 97 03/29/17 00:00 97.6 95 20 105/59 (74) 95 03/28/17 22:00 14 03/28/17 20:00 98.6 105 20 128/66 (86) 96 03/28/17 16:00 99.1 95 18 121/66 (84) 96 03/28/17 13:14 20 03/28/17 13:08 20 03/28/17 12:00 98.9 91 18 116/66 (83) 96 I/O 03/28/17 03/28/17 03/28/17 03/29/17 03/29/17 03/29/17 07:00 15:00 23:00 07:00 15:00 23:00 Intake Total 800 ml 340 ml 300 ml Output Total 1100 ml 700 ml 372 ml 650 ml Balance -1100 ml 100 ml -32 ml -350 ml Intake Oral 600 ml 240 ml IV Total 200 ml 100 ml 300 ml Output Urine Total 1100 ml 700 ml 350 ml 650 ml Drainage Total 22 ml # Bowel Movements 2 Result Diagram: 03/29/17 0637 03/29/17 0637 Imaging Last Impressions Renal Ultrasound 03/28/17 0000 Signed Impressions: Service Date/Time: Tuesday, March 28, 2017 18:53 - CONCLUSION: 1. Bilateral hydronephrosis and hydroureter more pronounced on the left. 2. 300 mL postvoid residual. Rey Monreal Jr., MD Chest X-Ray 03/26/17 0000 Signed Impressions: Service Date/Time: Sunday, March 26, 2017 11:15 - CONCLUSION: Minimal bibasilar parenchymal changes. Parker Way MD FACR Lumbar Spine X-Ray 03/25/17 0000 Signed Impressions: Service Date/Time: Saturday, March 25, 2017 13:17 - CONCLUSION: Instruments overlie the posterior elements at the L1-L2 level. Vishal Oneal MD Lumbar Spine MRI 03/25/17 0000 Signed Impressions: Service Date/Time: Saturday, March 25, 2017 08:45 - CONCLUSION: Discitis at L1-2 with adjacent osteomyelitis. Significant paraspinal and epidural abscess and bilateral psoas abscesses. Moderate degenerative spondylosis throughout the remainder of the lumbar spine with fairly severe canal stenosis at L4-5 and less prominent changes at other levels as described Vishal Osorio MD Lower Extremity Ultrasound 03/24/17 0000 Signed Impressions: Service Date/Time: Friday, March 24, 2017 12:42 - CONCLUSION: Negative for deep venous thrombosis. Parker Way MD FACR Scrotum Ultrasound 03/23/17 0000 Signed Impressions: Service Date/Time: Thursday, March 23, 2017 12:04 - CONCLUSION: Bilateral testicular atrophy. No torsion, inflammatory changes or other acute abnormality seen. Vishal Cevallos MD Abdomen Ultrasound 03/21/17 0000 Signed Impressions: Service Date/Time: Tuesday, March 21, 2017 15:29 - CONCLUSION: Only trace ascites which is inadequate for paracentesis. Michael Philip MD Abdomen/Pelvis CT 03/13/17 0000 Signed Impressions: Service Date/Time: February 15:19 - CONCLUSION: 1. Moderate-sized bilateral effusions with consolidative changes. 2. Moderate hepatosplenomegaly. 3. Ascites diffusely throughout the abdomen. 4. Compared to previous the effusions have enlarged. The ascites is new. The liver and spleen are stable in size. Natalio Way MD Objective Remarks GENERAL: Appears comfortable. SKIN: No rashes, warm and dry HEAD: Atraumatic. Normocephalic. EYES: Pupils equal round and reactive. Extraocular motions intact. No scleral icterus. ENT: Nose without bleeding, or drainage, Airway patent. NECK: Trachea midline. Supple CARDIOVASCULAR: Regular rate and rhythm. RESPIRATORY: Fair air entry bilaterally. No wheezes, rales, or rhonchi. GASTROINTESTINAL: Abdomen soft, diffuse tenderness to palpation, nondistended. Positive bowel sounds MUSCULOSKELETAL: No edema in the lower extremities. NEUROLOGICAL: Awake and alert. Moves all extremity. Normal speech. No focal neurological deficit. PSYCH: Anxious. Procedures L1-2 laminectomy, evacuation of lumbar spinal epidural abscess 03/25 Medications and IVs Current Medications Medications (Trade) Dose Ordered Sig/Jaya Route Start Time Stop Time Status Last Admin (Zofran Inj) 4 mg Q6H PRN IVP 03/10/17 14:30 03/15/17 15:00 (Narcan Inj) 0.4 mg UNSCH PRN IV PUSH 03/10/17 14:30 (Duoneb Neb) 1 ampule Q2HR NEB PRN NEB 03/10/17 14:30 (Symbicort 160-4.5 Inh) 1 puff Q12HR INH 03/10/17 21:00 03/28/17 08:40 (D50w (Vial) Inj) 50 ml UNSCH PRN IV PUSH 03/11/17 17:15 03/27/17 20:00 (Glucagon Inj) 1 mg UNSCH PRN OTHER 03/11/17 17:15 (Vasotec Inj) 1.25 mg Q6H PRN IV PUSH 03/11/17 17:15 (Imodium) 2 mg Q4H PRN PO 03/14/17 10:00 03/15/17 15:08 (Theragran Hematinic) 1 tab DAILY PO 03/15/17 09:00 03/29/17 08:14 (Vitamin C) 1,000 mg DAILY PO 03/15/17 09:00 03/29/17 08:15 Patient Own Medication (Linagliptin (Tradjenta) 5 MG DAILY PO 03/17/17 10:00 Future Hold Oxacillin Sodium 2 gm/Sodium Chloride 100 ml @ 200 mls/hr Q4H IV 03/18/17 17:00 03/29/17 09:48 (Aldactone) 25 mg DAILY PO 03/19/17 15:00 Future Hold 03/27/17 08:58 Albumin Human 100 ml @ 60 mls/hr Q12H IV 03/19/17 20:00 03/29/17 08:11 (Levemir Inj) 17 units BID SQ 03/21/17 09:00 03/29/17 08:28 (NovoLOG INJ) 7 units TIDAC SQ 03/21/17 08:00 03/29/17 08:28 (Oramorph Sr) 45 mg Q12HR PO 03/22/17 21:00 03/29/17 08:26 (Neurontin) 300 mg TID PO 03/24/17 09:00 03/29/17 08:15 (Vibratab) 100 mg Q12H PO 03/24/17 12:00 03/28/17 23:01 (NS Flush) 2 ml UNSCH PRN IVF 03/25/17 15:45 (NS Flush) 2 ml BID IVF 03/25/17 21:00 03/28/17 21:00 (Colace) 100 mg BID PO 03/25/17 21:00 03/29/17 08:15 (Protonix) 40 mg DAILY PO 03/26/17 09:00 03/29/17 08:15 ([place] 10-325 Mg) 1 tab Q4H PRN PO 03/25/17 15:45 ([place] 10-325 Mg) 2 tab Q4H PRN PO 03/25/17 15:45 03/27/17 14:31 (Morphine Inj) 2 mg Q2H PRN IV PUSH 03/25/17 15:45 (Morphine Inj) 4 mg Q2H PRN IV PUSH 03/25/17 15:45 03/27/17 15:09 (Tylenol) 650 mg Q4H PRN PO 03/25/17 15:45 (NovoLOG SUPPLEMENTAL SCALE) 1 Q4HR SQ 03/25/17 20:00 03/28/17 20:00 (Dilaudid CUTTER GRIND TOOL TECHNICIAN Inj) 6 mg UNSCH IV 03/25/17 21:15 03/28/17 13:08 CUTTER GRIND TOOL TECHNICIAN Dosage Infused (Pha) 1 Q8HR .XX 03/25/17 22:00 03/29/17 06:00 (Narcan Inj) 0.4 mg UNSCH PRN IV PUSH 03/25/17 21:00 (Viread) 300 mg DAILY PO 03/28/17 09:00 03/29/17 08:15 (Heparin Inj) 5,000 units Q8HR SQ 03/28/17 21:00 03/29/17 06:53 (Pepcid) 10 mg BID PO 03/28/17 21:00 03/29/17 08:15 (Flomax) 0.4 mg Q12HR PO 03/29/17 10:15 UNV A/P Problem List: (1) Staphylococcus aureus bacteremia with sepsis ICD Code: A41.01 - Sepsis due to Methicillin susceptible Staphylococcus aureus Status: Acute (2) Liver cirrhosis ICD Code: K74.60 - Unspecified cirrhosis of liver (3) Uncontrolled hypertension ICD Code: I10 - Essential (primary) hypertension (4) COPD (chronic obstructive pulmonary disease) ICD Code: J44.9 - Chronic obstructive pulmonary disease, unspecified (5) Diabetes mellitus with hyperglycemia ICD Code: E11.65 - Type 2 diabetes mellitus with hyperglycemia Status: Chronic (6) Pleural effusion ICD Code: J90 - Pleural effusion, not elsewhere classified (7) Hyponatremia ICD Code: E87.1 - Hypo-osmolality and hyponatremia (8) Ascites of liver ICD Code: R18.8 - Other ascites Status: Chronic (9) Anemia ICD Code: D64.9 - Anemia, unspecified Status: Chronic (10) Anasarca ICD Code: R60.1 - Generalized edema Status: Acute (11) Abdominal pain ICD Code: R10.9 - Unspecified abdominal pain Status: Acute (12) Testicular pain, left ICD Code: N50.812 - Left testicular pain Status: Acute (13) UTI (urinary tract infection) ICD Code: N39.0 - Urinary tract infection, site not specified Status: Acute (14) Back pain ICD Code: M54.9 - Dorsalgia, unspecified Status: Acute (15) Low grade fever ICD Code: R50.9 - Fever, unspecified Status: Acute (16) Bilateral leg edema ICD Code: R60.0 - Localized edema Status: Acute (17) Discitis of lumbar region ICD Code: M46.46 - Discitis, unspecified, lumbar region Status: Acute (18) Epidural abscess ICD Code: G06.2 - Extradural and subdural abscess, unspecified Status: Acute (19) Osteomyelitis of vertebra of lumbosacral region ICD Code: M46.27 - Osteomyelitis of vertebra, lumbosacral region Status: Acute (20) Psoas abscess ICD Code: K68.12 - Psoas muscle abscess Status: Acute Assessment and Plan Discitis/ osteomyelitis/ epidural abscess/ bilateral psoas abscess Patient complains of lumbar spine pain, on exam patient has tenderness to palpation of lumbar spine and right lower extremity weakness. 03/25 Lumbar spine mri shows discitis, osteomyelitis, epidural abscess, and bilateral psoas abscess. Placed a stat neurosurgery consultation, discussed the case with Dr Amilcar Richardson's creative assistant who reviewed MRI and discussed the case with him and said patient needs to have surgery. S/p L1-2 laminectomy, evacuation of lumbar spinal epidural abscess 03/25. - follow up with neurosurgery. - pain control. - PT. - antibiotics per ID. Currently on oxacillin and doxycycline. Staphylococcus aureus bacteremia with sepsis The patient was admitted to the medical floor, treated with IV antibiotics, infectious disease consulted. Source likely the urine since urine culture is growing MSSA. - The patient has been started on fluconazole for yeast urine on 03/21. D/c per ID. - The patient was started on oral doxycycline for left testicular pain and suspected epididymitis. Acute renal failure FENa calculated at 3%. Renal US showed: Bilateral hydronephrosis and hydroureter , more pronounced on the left. - urology consult requested. Tamsulosin was started. - hold diuretics and lisinopril. - IVFs. - avoid nephrotoxic agents. Left testicular pain Testicular ultrasound showed bilateral testicular atrophy. No distortion, inflammatory changes or other acute abnormality seen. GC/chlamydia PCR negative. - started the patient on oral doxycycline 100 mg by mouth twice a day for 7 days to treat the patient empirically for epididymitis. Liver cirrhosis/ Hepatitis B Abdomen and pelvis CT performed on 03/13/17 show moderate-sized bilateral pleural effusions with consolidative changes. Moderate hepatosplenomegaly. Ascites diffusely throughout the abdomen which compared to a previous CT abdomen and pelvis obtained on 03/10/17 was increased. There is a report of more prominent portal vein and interval enlargement of the spleen which measures 17.7 cm, findings consistent with increasing portal hypertension. Ultrasound-guided abdominal paracentesis was ordered, however there is not enough fluid for the procedure to be done. - holding diuresis in the setting of ARF. - GI following. Started on tenofovir for treatment of hepatitis B. - pain control as needed. Hypertension Blood pressure initially uncontrolled. Currently WNL. - hold lisinopril in the setting of renal insufficiency. COPD (chronic obstructive pulmonary disease On prednisone for COPD which seems to be stable. - s/p prednisone taper. Diabetes mellitus with hyperglycemia Blood sugars are still labile. - Continue basal bolus therapy with insulin Levemir and prandial insulin NovoLog. - Place on diabetic diet and high NovoLog insulin scale. Continue to monitor Accu-Cheks. Pleural effusion Pleural effusion likely overload and diastolic congestive heart failure secondary to liver cirrhosis. Echocardiogram shows a normal systolic function with an EF in the range of 55-60%. Wall thickness measure at the upper limits of normal. - holding diuretics. Celiac artery stenosis/ Abdominal pain 03/21 ultrasound of the abdomen SMA/celiac Doppler showed a greater than 70% stenosis in the celiac artery. Less than 50% stenosis in the mesenteric artery. Vascular surgery recommendations appreciated. Discussed the case with Dr. Gurrola who states that abdominal pain is not coming from this finding. - Recommended outpatient treatment with pain master fire control technician. Acute blood loss anemia Iron low, ferritin normal. TIBC and percent saturation not done. Ordered. Anemic following surgery. - 2 units prbc ordered 03/26. Follow CBC and transfuse additional unit if indicated. Stable. GI Prophylaxis: Continue PPI. VT prophylaxis: Heparin Discharge Planning Awaiting improvement Problem Qualifiers (1) COPD (chronic obstructive pulmonary disease): Qualified Codes: J42 - Unspecified chronic bronchitis (2) Diabetes mellitus with hyperglycemia: Qualified Codes: E11.65 - Type 2 diabetes mellitus with hyperglycemia; Z79.4 - moth exterminator (current) use of insulin (3) Anemia: Qualified Codes: D64.9 - Anemia, unspecified Jase Griffin DO Mar 29, 2017 10:24
--- NOTE | 2017-03-29 11:20 | HHI.NSPN ---
History Interval History Mr. Parks is a 66-year-old male who was admitted secondary to right lower quadrant pain with sepsis. She has a history of a bowel resection approximately 1.5 months ago. There was suspicion of bacterial enteritis or colitis is present in place since his recent surgical site at risk so close monitoring and treatments are initiated. His surgeon has been consulted. Nausea and vomiting was present at time of admit. he is a smoker. history of COPD. Three weeks ago he underwent a laparotomy. He has developed extremely severe pain with radiculopathy in his right lower extremity, and now significant weakness in his legs. No incontinence of stool or urine. MRI L spine showed a large epidural abscess with spinal cord compression. neurosurgical consultation was requested. s/p L1-2 laminectomy with evacuation of lumbar spinal epidural abscess, and placement of wound vac 03/25/1703/26: laying in bed alert. c/o of intractable back pain - has OB/GYN DOCTOR pump at bedside, stable lower extremity weakness 03/27: pt seen this morning during rounds, persistent intractable lumbar pain. OB/GYN DOCTOR not controlling pain. 03/28: reports today he feels his lumbar pain and lower extremity strength slowly improving. custom TLSO delivered. 03/29: Patient is awake and alert. No new complaints this morning. Exam Results Vital Signs Date Time Temp Pulse Resp B/P (MAP) Pulse Ox O2 Delivery O2 Flow Rate FiO2 03/29/17 09:59 87 03/29/17 08:00 97.7 18 102/58 (73) 96 03/27/17 21:27 21 03/25/17 19:00 Room Air Intake and Output 03/29/17 03/29/17 03/30/17 08:00 16:00 00:00 Intake Total 300 ml Output Total 650 ml Balance -350 ml Physical Examination Mr. Parks is alert, no acute distress. Speech is fluent. Follows commands well. Cranial nerve examination: pupils equal. Facial motor symmetrical. Neck is soft and supple. Muscle strength: moves upper extremities with good strength. In the lower extremities, strength is 3/5 in both iliopsoas, quadriceps, hamstrings, 4+ to 5- /5 plantar flexion, dorsiflexion. Sensory examination is grossly intact to light touch in both lower extremities, symmetrically. Wound with wound vac in place. TOM drain with minimal drainage. Lab, Micro, Other Results Last Impressions Renal Ultrasound 03/28/17 0000 Signed Impressions: Service Date/Time: Tuesday, March 28, 2017 18:53 - CONCLUSION: 1. Bilateral hydronephrosis and hydroureter more pronounced on the left. 2. 300 mL postvoid residual. Rey Monreal Jr., MD Chest X-Ray 03/26/17 0000 Signed Impressions: Service Date/Time: Sunday, March 26, 2017 11:15 - CONCLUSION: Minimal bibasilar parenchymal changes. Parker Way MD FACR Lumbar Spine X-Ray 03/25/17 0000 Signed Impressions: Service Date/Time: Saturday, March 25, 2017 13:17 - CONCLUSION: Instruments overlie the posterior elements at the L1-L2 level. Vishal Oneal MD Lumbar Spine MRI 03/25/17 Signed Impressions: Service Date/Time: Saturday, March 25, 2017 08:45 - CONCLUSION: Discitis at L1-2 with adjacent osteomyelitis. Significant paraspinal and epidural abscess and bilateral psoas abscesses. Moderate degenerative spondylosis throughout the remainder of the lumbar spine with fairly severe canal stenosis at L4-5 and less prominent changes at other levels as described Vishal Osorio MD Lower Extremity Ultrasound 03/24/17 0000 Signed Impressions: Service Date/Time: Friday, March 24, 2017 12:42 - CONCLUSION: Negative for deep venous thrombosis. Parker Way MD FACR Scrotum Ultrasound 03/23/17 0000 Signed Impressions: Service Date/Time: Thursday, March 23, 2017 12:04 - CONCLUSION: Bilateral testicular atrophy. No torsion, inflammatory changes or other acute abnormality seen. Vishal Cevallos MD Abdomen Ultrasound 03/21/17 0000 Signed Impressions: Service Date/Time: Tuesday, March 21, 2017 15:29 - CONCLUSION: Only trace ascites which is inadequate for paracentesis. Michael Philip MD Abdomen/Pelvis CT 03/13/17 0000 Signed Impressions: Service Date/Time: February 15:19 - CONCLUSION: 1. Moderate-sized bilateral effusions with consolidative changes. 2. Moderate hepatosplenomegaly. 3. Ascites diffusely throughout the abdomen. 4. Compared to previous the effusions have enlarged. The ascites is new. The liver and spleen are stable in size. Natalio Way MD Laboratory Tests Test 03/29/17 03:47 03/29/17 06:37 Urine Color YELLOW Urine Turbidity CLEAR Urine pH 7.0 Urine Specific Delta 1.013 Urine Protein 30 Urine Glucose (UA) NEG Urine Ketones NEG Urine Occult Blood LARGE Urine Nitrite NEG Urine Bilirubin NEG Urine Urobilinogen LESS THAN 2.0 Urine Leukocyte Esterase SMALL Urine RBC 140 Urine WBC 23 Urine Bacteria RARE Microscopic Urinalysis Comment CULT NOT INDICATED Urine Random Creatinine 39.8 Urine Random Sodium 96 White Blood Count 9.7 Red Blood Count 2.74 Hemoglobin 7.4 Hematocrit 22.4 Mean Corpuscular Volume 81.7 Mean Corpuscular Hemoglobin 27.0 Mean Corpuscular Hemoglobin Concent 33.0 Red Cell Distribution Width 17.7 Platelet Count 202 Mean Platelet Volume 8.2 Blood Urea Nitrogen 35 Creatinine 1.68 Random Glucose 60 Calcium Level 8.4 Magnesium Level 2.2 Sodium Level 134 Potassium Level 4.2 Chloride Level 100 Carbon Dioxide Level 27.3 Anion Gap 7 Estimat Glomerular Filtration Rate 41 Date/Time Source Procedure Growth Status 03/25/17 22:55 Blood Peripheral Aerobic Blood Culture - Preliminary NO GROWTH IN 4 DAYS Resulted 03/25/17 22:55 Blood Peripheral Anaerobic Blood Culture - Preliminary NO GROWTH IN 4 DAYS Resulted 03/29/17 02:38 Stool Stool Stool Occult Blood (JADEN) - Final HEMOCCULT NEGATIVE Complete 03/19/17 05:15 Urine Clean Catch Urine Culture - Final Chiara Tropicalis Complete 03/25/17 14:30 Wound Back Fungal Smear - Final NO FUNGAL ELEMENTS SEEN. Resulted 03/25/17 14:30 Wound Back Fungal Culture Pending Resulted Medical Decision Making Impression and Plan Assessment: Status post lumbar laminectomy for abscess causing cauda equina compression and lower extremity weakness. Improving neurological examination. Plan: Continue current management and antibiotics. Yinka Ryan MD Mar 29, 2017 11:20
[2017-03-29] MEDS: DOXYCYCLINE HYCLATE 100 MG TAB PO SCH (11:49)
[2017-03-29] MEDS: TAMSULOSIN HCL 0.4 MG CAP PO SCH ×2 (11:49→21:43)
[2017-03-29] MEDS: ACETAMINOPHEN/HYDROcodone 325 MG/10 MG TAB PO PRN (12:33)
[2017-03-29] MEDS: HYDROmorphone HCL PCA 6 MG/30 ML IV SCH (13:45)
[2017-03-29] MEDS ORDERED: INSULIN DETEMIR 100 UNITS/ML VIAL SQ SCH (21:00)
[2017-03-30] VITALS (13 sets, daily range): BP systolic 99–137; BP diastolic 53–77; PULSE 82–96; RESP 16–20; TEMP 97.7–99.7; O2SAT 95–97
[2017-03-30] MEDS: DOXYCYCLINE HYCLATE 100 MG TAB PO SCH ×2 (00:14→12:12)
[2017-03-30] MEDS: INSULIN ASPART SUPPLEMENTAL SCALE SQ SCH ×6 (00:14→22:29)
[2017-03-30] MEDS: OXACILLIN INJ 2 GM in SODIUM CHLORIDE 0.9% INJ 100 ML IV SCH ×6 (00:28→22:30)
[2017-03-30] MEDS: HEPARIN SODIUM - SQ 10,000 UNITS/ML VIAL SQ SCH ×4 (05:00→22:30)
[2017-03-30] MEDS: PCA - TOTAL MG DILAUDID DELIVERED PER SHIFT SCH ×3 (06:00→21:55)
[2017-03-30 06:02] LABS: HEMATOCRIT 21.3 % (39.0-51.0); MEAN CORPUSCULAR HEMOGLOBIN 26.9 PG (27.0-34.0); MEAN CORPUSCULAR HGB CONC 32.8 % (32.0-36.0); PLATELET COUNT 189 TH/MM3 (150-450); RED CELL DISTRIBUTION WIDTH 17.9 % (11.6-17.2); REVIEW FLAG FINAL; WHITE BLOOD COUNT 5.9 TH/MM3 (4.0-11.0)
[2017-03-30 06:42] LABS: BICARBONATE 26.6 MEQ/L (21.0-32.0); MAGNESIUM 2.1 MG/DL (1.5-2.5); POTASSIUM 4.1 MEQ/L (3.5-5.1)
[2017-03-30] MEDS: ALBUMIN 25% INJ 100 ML IV SCH ×2 (07:39→20:51)
[2017-03-30] MEDS: GABAPENTIN 300 MG CAP PO SCH ×3 (08:47→16:23)
[2017-03-30] MEDS: MULTIVITAMIN HEMATINIC THERAPEUTIC TAB PO SCH (08:47)
[2017-03-30] MEDS: ASCORBIC ACID 500 MG TAB PO SCH (08:47)
[2017-03-30] MEDS: PANTOPRAZOLE SOD 40 MG DELAYED RELEASE TAB PO SCH (08:47)
[2017-03-30] MEDS: TAMSULOSIN HCL 0.4 MG CAP PO SCH ×2 (08:48→20:53)
[2017-03-30] MEDS: INSULIN DETEMIR 100 UNITS/ML VIAL SQ SCH (08:48)
[2017-03-30] MEDS: DOCUSATE SODIUM 100 MG CAP PO SCH ×2 (08:48→20:52)
[2017-03-30] MEDS: FAMOTIDINE 20 MG TAB PO SCH ×2 (08:48→20:52)
[2017-03-30] MEDS: TENOFOVIR DISOPROXIL FUMARATE 300 MG TAB PO SCH (08:48)
[2017-03-30] MEDS: MORPHINE SULFATE 15 MG CONTROLLED RELEASE TAB PO SCH ×2 (08:49→20:53)
[2017-03-30] MEDS: SODIUM CHLORIDE 0.9% FLUSH 5 ML FLUSH IVF SCH ×2 (08:50→20:54)
[2017-03-30] MEDS: BUDESONIDE-FORMOTEROL 160/4.5 MCG INHALER INH SCH ×2 (08:50→20:54)
--- NOTE | 2017-03-30 10:53 | HHI.NSPN ---
History Interval History Mr. Parks is a 66-year-old male who was admitted secondary to right lower quadrant pain with sepsis. She has a history of a bowel resection approximately 1.5 months ago. There was suspicion of bacterial enteritis or colitis is present in place since his recent surgical site at risk so close monitoring and treatments are initiated. His surgeon has been consulted. Nausea and vomiting was present at time of admit. he is a smoker. history of COPD. Three weeks ago he underwent a laparotomy. He has developed extremely severe pain with radiculopathy in his right lower extremity, and now significant weakness in his legs. No incontinence of stool or urine. MRI L spine showed a large epidural abscess with spinal cord compression. neurosurgical consultation was requested. s/p L1-2 laminectomy with evacuation of lumbar spinal epidural abscess, and placement of wound vac 03/25/1703/26: laying in bed alert. c/o of intractable back pain - has FASHION DIRECTOR pump at bedside, stable lower extremity weakness 03/27: pt seen this morning during rounds, persistent intractable lumbar pain. FASHION DIRECTOR not controlling pain. 03/28: reports today he feels his lumbar pain and lower extremity strength slowly improving. custom TLSO delivered. 03/29: Patient is awake and alert. No new complaints this morning. 03/30: Patient right and alert. Improving complaints of pain. He is ambulating with physical therapy. Exam Results Vital Signs Date Time Temp Pulse Resp B/P (MAP) Pulse Ox O2 Delivery O2 Flow Rate FiO2 03/30/17 10:22 85 03/30/17 08:00 98.1 18 126/62 (83) 96 03/29/17 18:19 21 Intake and Output 03/30/17 03/30/17 03/31/17 08:00 16:00 00:00 Intake Total 1090 ml Output Total 1400 ml Balance -310 ml Physical Examination Mr. Parks is alert, no acute distress. Speech is fluent. Follows commands well. Cranial nerve examination: pupils equal. Facial motor symmetrical. Neck is soft and supple. Muscle strength: moves upper extremities with good strength. In the lower extremities, strength is 5-/5 in both iliopsoas, quadriceps, hamstrings, 5/5 plantar flexion, dorsiflexion. Sensory examination is grossly intact to light touch in both lower extremities, symmetrically. Lab, Micro, Other Results Laboratory Tests Test 03/30/17 05:29 White Blood Count 5.9 Red Blood Count 2.60 Hemoglobin 7.0 Hematocrit 21.3 Mean Corpuscular Volume 82.0 Mean Corpuscular Hemoglobin 26.9 Mean Corpuscular Hemoglobin Concent 32.8 Red Cell Distribution Width 17.9 Platelet Count 189 Mean Platelet Volume 8.2 Blood Urea Nitrogen 35 Creatinine 1.42 Random Glucose 143 Calcium Level 8.3 Magnesium Level 2.1 Sodium Level 139 Potassium Level 4.1 Chloride Level 103 Carbon Dioxide Level 26.6 Anion Gap 9 Estimat Glomerular Filtration Rate 50 Date/Time Source Procedure Growth Status 03/25/17 22:55 Blood Peripheral Aerobic Blood Culture - Preliminary NO GROWTH IN 4 DAYS Resulted 03/25/17 22:55 Blood Peripheral Anaerobic Blood Culture - Preliminary NO GROWTH IN 4 DAYS Resulted 03/29/17 02:38 Stool Stool Stool Occult Blood (JADEN) - Final HEMOCCULT NEGATIVE Complete 03/19/17 05:15 Urine Clean Catch Urine Culture - Final Chiara Tropicalis Complete 03/25/17 14:30 Wound Back Fungal Smear - Final NO FUNGAL ELEMENTS SEEN. Resulted 03/25/17 14:30 Wound Back Fungal Culture Pending Resulted Medical Decision Making Impression and Plan Assessment: Status post lumbar laminectomy for abscess causing cauda equina compression and lower extremity weakness. Improving neurological examination. Plan: Continue current management and antibiotics. Yinka Ryan MD Mar 30, 2017 10:53
[2017-03-30] MEDS: HYDROmorphone HCL PCA 6 MG/30 ML IV SCH ×2 (10:59→21:51)
--- NOTE | 2017-03-30 11:20 | MB ---
cc: VAMSHI KING MD DATE OF CONSULTATION: 03/30/2017 REASON FOR CONSULTATION 1. Bilateral hydronephrosis. 2. Urinary retention. HISTORY OF PRESENT ILLNESS The patient is a 67-year-old male who was admitted on March 08, 2017 with right lower quadrant pain, nausea, vomiting, abdominal cramping. He was initially seen by general surgery because he recently had resection of his small bowel. General surgery recommended conservative management. During his hospital stay he developed extreme pain in his right lower extremity and weakness in his legs. He had MRI of his lumbar spine which showed a large epidural abscess with spinal cord compression. Neurosurgery was subsequently consulted. He underwent a lumbar laminectomy for this epidural abscess that was resulting in "compression" on his lower extremity and weakness. Following surgery he had a Morelos catheter in place. The Morelos catheter was subsequently removed and he initially was voiding well on his own. His creatinine was improving, however, the next couple days his urine output slightly decreased and his creatinine started to increase up to 1.7. Renal ultrasound was performed which showed mild bilateral hydronephrosis and distended bladder with approximately 300 ccs. Urology was consulted for these findings. Within the next 36 hours his creatinine has slowly decreased down to 1.42. The patient states he feels like he is currently emptying his bladder well as his urine output has picked up. He does not have great control of his bladder as he is getting strong urges and having frequent accidents, however, he is able to start his own stream and urinate on his own. He denies any issues with his bowels including fecal incontinence at this time. Prior to this episode he had been voiding without complaints. Denies dysuria, hematuria, was only getting up one time at night, he had a strong stream. Denies history of kidney stones or urinary tract infection in the past. Denies family history of prostate cancer. He currently denies fevers, chills, flank pain, nausea, vomiting or abdominal pain. PAST MEDICAL HISTORY 1. Cirrhosis. 2. Hep C. 3. Hypertension. 4. COPD. 5. Diabetes. 6. History of DVT. PAST SURGICAL HISTORY 1. Appendectomy. 2. Cholecystectomy. 3. Back surgeries. 4. Repair of spleen. 5. Small bowel resection. 6. Colon resection. 7. Hand surgery. 8. Multiple ERCP in the past. ALLERGIES CODEINE. MEDICATIONS Home medications include: 1. Novolog insulin. 2. Symbicort. 3. Lisinopril. 4. Gabapentin. 5. Pro-Air HFA. 6. Levemir. 7. Dilaudid. FAMILY HISTORY His dad had colon cancer, diabetes. Mother had lupus. Denies urolithiasis, genitourinary malignancies. SOCIAL HISTORY Smokes 6 cigarettes a day. Denies alcohol or illicit drug abuse. PHYSICAL EXAMINATION VITAL SIGNS: Temperature 98.1, pulse 90, respiratory rate 18, BP 126/62, sating 96% on room air. GENERAL: He is alert and oriented x3. No apparent distress. Pleasant, cooperative gentleman who appears older than his stated age. HEAD: Head is normocephalic, atraumatic. EYES: No scleral icterus. Extraocular muscles intact. NECK: Supple. Trachea is midline. No JVD. SKIN: No ulcers or rashes, pink and moist. LUNGS: Clear to auscultation bilaterally. No wheezes, rales or rhonchi. HEART: Regular rate and rhythm. No murmurs, gallops. ABDOMEN: Soft, slightly distended, nontender, no masses. GENITOURINARY: He has no CVA tenderness bilaterally. His penis is circumcised. Testes descended bilaterally, normal size and consistency without mass. EXTREMITIES: Nontender. No clubbing, cyanosis, edema. PSYCHE: Normal affect. NEUROLOGIC: Cranial II-XII are intact. Strength 5/5 in upper extremities, 4/5 in the lower extremities. LABORATORY DATA Sodium 139, potassium 4.1, chloride 103, bicarb 26.6, BUN 35, creatinine 1.42, glucose 143. White count 5.9, hemoglobin 7.0, hematocrit 21.3, platelet count 17.9. His urine showed large occult blood, small leukocyte esterase. Urine culture on 03/10 showed staph aureus. IMAGING STUDIES CT abdomen and pelvis with and without contrast images were reviewed from 03/13/2017. There was no evidence of kidney stones or hydronephrosis and bladder appeared to be nondistended with a non-thickened bladder wall. However, renal ultrasound on 03/28/2017, images reviewed, agree with radiologist's report. The patient had mild bilateral hydronephrosis of the bladder of approximately 300 ccs. ASSESSMENT The patient is a 67-year-old male admitted with severe lower abdominal pain, developing cauda equina syndrome secondary to epidural abscess, status post lumbar decompression, presents with mild bilateral hydronephrosis, urinary retention. PLAN 1. Start the patient on Flomax 0.4 mg p.o. b.i.d. 2. Will check postvoid residuals as needed, likely his urinary symptoms are a result of the spinal abscess and his bladder should return back to normal following resolution of his abscess. Will follow along closely. If he does go into urinary retention and unable to empty his bladder, then likely will need a Morelos catheter and urodynamics as outpatient. Thank you for the consult. Vamshi King MD EMLadan/VINNY /9:34 AM /10:46 AM
--- NOTE | 2017-03-30 15:03 | HHI.PR ---
Subjective Remarks The patient was resting in bed comfortably. He was happy to hear his kidneys were getting better. He wanted a regular diet. He said his blood sugars have been low at times. He was okay with a blood transfusion. Discussed with nursing. Objective Vitals Vital Signs Date Time Temp Pulse Resp B/P (MAP) Pulse Ox O2 Delivery O2 Flow Rate FiO2 03/30/17 12:00 96 03/30/17 12:00 98.7 92 18 119/72 (88) 96 03/30/17 10:59 20 03/30/17 10:22 85 03/30/17 08:00 98.1 90 18 126/62 (83) 96 03/30/17 06:00 18 03/30/17 05:57 99.7 96 20 119/65 (83) 95 03/30/17 03:05 18 03/30/17 01:43 93 03/30/17 01:07 99.3 94 20 99/53 (68) 95 03/29/17 23:15 18 03/29/17 21:48 18 03/29/17 20:58 99.0 97 20 130/74 (92) 97 03/29/17 20:00 18 03/29/17 18:19 96 21 03/29/17 16:00 97.7 82 18 114/72 (86) 96 I/O 03/29/17 03/29/17 03/29/17 03/30/17 03/30/17 03/30/17 07:00 15:00 23:00 07:00 15:00 23:00 Intake Total 300 ml 946 ml 1090 ml Output Total 650 ml 300 ml 1400 ml Balance -350 ml 646 ml -310 ml Intake Oral 240 ml IV Total 300 ml 946 ml 850 ml Output Urine Total 650 ml 300 ml 1400 ml # Voids 1 # Bowel Movements 2 2 1 Result Diagram: 03/30/17 0529 03/30/17 0529 Imaging Last Impressions Renal Ultrasound 03/28/17 0000 Signed Impressions: Service Date/Time: Tuesday, March 28, 2017 18:53 - CONCLUSION: 1. Bilateral hydronephrosis and hydroureter more pronounced on the left. 2. 300 mL postvoid residual. Rey Monreal Jr., MD Chest X-Ray 03/26/17 0000 Signed Impressions: Service Date/Time: Sunday, March 26, 2017 11:15 - CONCLUSION: Minimal bibasilar parenchymal changes. Parker Way MD FACR Lumbar Spine X-Ray 03/25/17 0000 Signed Impressions: Service Date/Time: Saturday, March 25, 2017 13:17 - CONCLUSION: Instruments overlie the posterior elements at the L1-L2 level. Vishal Oneal MD Lumbar Spine MRI 03/25/17 0000 Signed Impressions: Service Date/Time: Saturday, March 25, 2017 08:45 - CONCLUSION: Discitis at L1-2 with adjacent osteomyelitis. Significant paraspinal and epidural abscess and bilateral psoas abscesses. Moderate degenerative spondylosis throughout the remainder of the lumbar spine with fairly severe canal stenosis at L4-5 and less prominent changes at other levels as described Vishal Osorio MD Lower Extremity Ultrasound 03/24/17 0000 Signed Impressions: Service Date/Time: Friday, March 24, 2017 12:42 - CONCLUSION: Negative for deep venous thrombosis. Parker Way MD FACR Scrotum Ultrasound 03/23/17 0000 Signed Impressions: Service Date/Time: Thursday, March 23, 2017 12:04 - CONCLUSION: Bilateral testicular atrophy. No torsion, inflammatory changes or other acute abnormality seen. Vishal Cevallos MD Abdomen Ultrasound 03/21/17 0000 Signed Impressions: Service Date/Time: Tuesday, March 21, 2017 15:29 - CONCLUSION: Only trace ascites which is inadequate for paracentesis. Michael Philip MD Abdomen/Pelvis CT 03/13/17 0000 Signed Impressions: Service Date/Time: February 15:19 - CONCLUSION: 1. Moderate-sized bilateral effusions with consolidative changes. 2. Moderate hepatosplenomegaly. 3. Ascites diffusely throughout the abdomen. 4. Compared to previous the effusions have enlarged. The ascites is new. The liver and spleen are stable in size. Natalio Way MD Objective Remarks GENERAL: Appears comfortable. SKIN: No rashes, warm and dry HEAD: Atraumatic. Normocephalic. EYES: Pupils equal round and reactive. Extraocular motions intact. No scleral icterus. ENT: Nose without bleeding, or drainage, Airway patent. NECK: Trachea midline. Supple CARDIOVASCULAR: Regular rate and rhythm. RESPIRATORY: Fair air entry bilaterally. No wheezes, rales, or rhonchi. GASTROINTESTINAL: Abdomen soft, diffuse tenderness to palpation, nondistended. Positive bowel sounds MUSCULOSKELETAL: No edema in the lower extremities. NEUROLOGICAL: Awake and alert. Moves all extremity. Normal speech. No focal neurological deficit. PSYCH: Teary-eyed. Procedures L1-2 laminectomy, evacuation of lumbar spinal epidural abscess 03/25 Medications and IVs Current Medications Medications (Trade) Dose Ordered Sig/Jaya Route Start Time Stop Time Status Last Admin (Zofran Inj) 4 mg Q6H PRN IVP 03/10/17 14:30 03/15/17 15:00 (Narcan Inj) 0.4 mg UNSCH PRN IV PUSH 03/10/17 14:30 (Duoneb Neb) 1 ampule Q2HR NEB PRN NEB 03/10/17 14:30 (Symbicort 160-4.5 Inh) 1 puff Q12HR INH 03/10/17 21:00 03/30/17 08:50 (D50w (Vial) Inj) 50 ml UNSCH PRN IV PUSH 03/11/17 17:15 03/27/17 20:00 (Glucagon Inj) 1 mg UNSCH PRN OTHER 03/11/17 17:15 (Vasotec Inj) 1.25 mg Q6H PRN IV PUSH 03/11/17 17:15 (Imodium) 2 mg Q4H PRN PO 03/14/17 10:00 03/15/17 15:08 (Theragran Hematinic) 1 tab DAILY PO 03/15/17 09:00 03/30/17 08:47 (Vitamin C) 1,000 mg DAILY PO 03/15/17 09:00 03/30/17 08:47 Patient Own Medication (Linagliptin (Tradjenta) 5 MG DAILY PO 03/17/17 10:00 Future Hold Oxacillin Sodium 2 gm/Sodium Chloride 100 ml @ 200 mls/hr Q4H IV 03/18/17 17:00 03/30/17 12:13 (Aldactone) 25 mg DAILY PO 03/19/17 15:00 Future Hold 03/27/17 08:58 Albumin Human 100 ml @ 60 mls/hr Q12H IV 03/19/17 20:00 03/30/17 07:39 (Oramorph Sr) 45 mg Q12HR PO 03/22/17 21:00 03/30/17 08:49 (Neurontin) 300 mg TID PO 03/24/17 09:00 03/30/17 12:12 (Vibratab) 100 mg Q12H PO 03/24/17 12:00 03/30/17 12:12 (NS Flush) 2 ml UNSCH PRN IVF 03/25/17 15:45 (NS Flush) 2 ml BID IVF 03/25/17 21:00 03/29/17 21:43 (Colace) 100 mg BID PO 03/25/17 21:00 03/30/17 08:48 (Protonix) 40 mg DAILY PO 03/26/17 09:00 03/30/17 08:47 ([place] 10-325 Mg) 1 tab Q4H PRN PO 03/25/17 15:45 ([place] 10-325 Mg) 2 tab Q4H PRN PO 03/25/17 15:45 03/29/17 12:33 (Morphine Inj) 2 mg Q2H PRN IV PUSH 03/25/17 15:45 (Morphine Inj) 4 mg Q2H PRN IV PUSH 03/25/17 15:45 03/27/17 15:09 (Tylenol) 650 mg Q4H PRN PO 03/25/17 15:45 (Dilaudid ASSISTANT ATTORNEY GENERAL Inj) 6 mg UNSCH IV 03/25/17 21:15 03/30/17 10:59 ASSISTANT ATTORNEY GENERAL Dosage Infused (Pha) 1 Q8HR .XX 03/25/17 22:00 03/30/17 06:00 (Narcan Inj) 0.4 mg UNSCH PRN IV PUSH 03/25/17 21:00 (Viread) 300 mg DAILY PO 03/28/17 09:00 03/30/17 08:48 (Heparin Inj) 5,000 units Q8HR SQ 03/28/17 21:00 03/30/17 12:13 (Pepcid) 10 mg BID PO 03/28/17 21:00 03/30/17 08:48 (Flomax) 0.4 mg Q12HR PO 03/29/17 10:30 03/30/17 08:48 (Levemir Inj) 10 units DAILY SQ 03/30/17 09:00 03/30/17 08:48 (NovoLOG SUPPLEMENTAL SCALE) 1 ACHS SLIDING SCALE SQ 03/30/17 17:00 A/P Problem List: (1) Staphylococcus aureus bacteremia with sepsis ICD Code: A41.01 - Sepsis due to Methicillin susceptible Staphylococcus aureus Status: Acute (2) Liver cirrhosis ICD Code: K74.60 - Unspecified cirrhosis of liver (3) Uncontrolled hypertension ICD Code: I10 - Essential (primary) hypertension (4) COPD (chronic obstructive pulmonary disease) ICD Code: J44.9 - Chronic obstructive pulmonary disease, unspecified (5) Diabetes mellitus with hyperglycemia ICD Code: E11.65 - Type 2 diabetes mellitus with hyperglycemia Status: Chronic (6) Pleural effusion ICD Code: J90 - Pleural effusion, not elsewhere classified (7) Hyponatremia ICD Code: E87.1 - Hypo-osmolality and hyponatremia (8) Ascites of liver ICD Code: R18.8 - Other ascites Status: Chronic (9) Anemia ICD Code: D64.9 - Anemia, unspecified Status: Chronic (10) Anasarca ICD Code: R60.1 - Generalized edema Status: Acute (11) Abdominal pain ICD Code: R10.9 - Unspecified abdominal pain Status: Acute (12) Testicular pain, left ICD Code: N50.812 - Left testicular pain Status: Acute (13) UTI (urinary tract infection) ICD Code: N39.0 - Urinary tract infection, site not specified Status: Acute (14) Back pain ICD Code: M54.9 - Dorsalgia, unspecified Status: Acute (15) Low grade fever ICD Code: R50.9 - Fever, unspecified Status: Acute (16) Bilateral leg edema ICD Code: R60.0 - Localized edema Status: Acute (17) Discitis of lumbar region ICD Code: M46.46 - Discitis, unspecified, lumbar region Status: Acute (18) Epidural abscess ICD Code: G06.2 - Extradural and subdural abscess, unspecified Status: Acute (19) Osteomyelitis of vertebra of lumbosacral region ICD Code: M46.27 - Osteomyelitis of vertebra, lumbosacral region Status: Acute (20) Psoas abscess ICD Code: K68.12 - Psoas muscle abscess Status: Acute Assessment and Plan Discitis/ osteomyelitis/ epidural abscess/ bilateral psoas abscess Patient complains of lumbar spine pain, on exam patient has tenderness to palpation of lumbar spine and right lower extremity weakness. 03/25 Lumbar spine mri shows discitis, osteomyelitis, epidural abscess, and bilateral psoas abscess. Placed a stat neurosurgery consultation, discussed the case with Dr Amilcar Richardson's assistant professor of mathematics who reviewed MRI and discussed the case with him and said patient needs to have surgery. S/p L1-2 laminectomy, evacuation of lumbar spinal epidural abscess 03/25. - follow up with neurosurgery. - pain control. - PT. - antibiotics per ID. Currently on oxacillin and doxycycline. Staphylococcus aureus bacteremia with sepsis The patient was admitted to the medical floor, treated with IV antibiotics, infectious disease consulted. Source likely the urine since urine culture is growing MSSA. - The patient has been started on fluconazole for yeast urine on 03/21. D/c per ID. - The patient was started on oral doxycycline for left testicular pain and suspected epididymitis. Acute renal failure FENa calculated at 3%. Renal US showed: Bilateral hydronephrosis and hydroureter , more pronounced on the left. Urology consult appreciated. Creatinine improving. - Tamsulosin was started by urology. - Continue to hold diuretics and lisinopril. - IVFs. - avoid nephrotoxic agents. Left testicular pain Testicular ultrasound showed bilateral testicular atrophy. No distortion, inflammatory changes or other acute abnormality seen. GC/chlamydia PCR negative. - started the patient on oral doxycycline 100 mg by mouth twice a day for 7 days to treat the patient empirically for epididymitis. Liver cirrhosis/ Hepatitis B Abdomen and pelvis CT performed on 03/13/17 show moderate-sized bilateral pleural effusions with consolidative changes. Moderate hepatosplenomegaly. Ascites diffusely throughout the abdomen which compared to a previous CT abdomen and pelvis obtained on 03/10/17 was increased. There is a report of more prominent portal vein and interval enlargement of the spleen which measures 17.7 cm, findings consistent with increasing portal hypertension. Ultrasound-guided abdominal paracentesis was ordered, however there is not enough fluid for the procedure to be done. - holding diuresis in the setting of ARF. - GI following. Started on tenofovir for treatment of hepatitis B. - pain control as needed. Hypertension Blood pressure initially uncontrolled. Currently WNL. - hold lisinopril in the setting of renal insufficiency. COPD (chronic obstructive pulmonary disease On prednisone for COPD which seems to be stable. - s/p prednisone taper. Diabetes mellitus with hyperglycemia Blood sugars are still labile. - Continue Levemir 10 units daily. - Place on low NovoLog insulin scale. Continue to monitor Accu-Cheks. Pleural effusion Pleural effusion likely overload and diastolic congestive heart failure secondary to liver cirrhosis. Echocardiogram shows a normal systolic function with an EF in the range of 55-60%. Wall thickness measure at the upper limits of normal. - holding diuretics. Celiac artery stenosis/ Abdominal pain 03/21 ultrasound of the abdomen SMA/celiac Doppler showed a greater than 70% stenosis in the celiac artery. Less than 50% stenosis in the mesenteric artery. Vascular surgery recommendations appreciated. Discussed the case with Dr. Gurrola who states that abdominal pain is not coming from this finding. - Recommended outpatient treatment with pain quality control scientist. Acute blood loss anemia Iron low, ferritin normal. TIBC and percent saturation not done. Ordered. Anemic following surgery. - 2 units prbc ordered 03/26. Follow CBC and transfuse additional unit if indicated. Hemoglobin 7 03/30, we will transfusion additional unit. GI Prophylaxis: Continue PPI. VT prophylaxis: Heparin Discharge Planning Awaiting improvement Problem Qualifiers (1) COPD (chronic obstructive pulmonary disease): Qualified Codes: J42 - Unspecified chronic bronchitis (2) Diabetes mellitus with hyperglycemia: Qualified Codes: E11.65 - Type 2 diabetes mellitus with hyperglycemia; Z79.4 - snf (current) use of insulin (3) Anemia: Qualified Codes: D64.9 - Anemia, unspecified Jase Griffin DO Mar 30, 2017 15:03
[2017-03-31] VITALS (12 sets, daily range): BP systolic 122–156; BP diastolic 74–87; PULSE 87–96; RESP 18–20; TEMP 97.6–98.7; O2SAT 97–100
[2017-03-31] MEDS: OXACILLIN INJ 2 GM in SODIUM CHLORIDE 0.9% INJ 100 ML IV SCH ×6 (00:41→21:20)
[2017-03-31] MEDS: DOXYCYCLINE HYCLATE 100 MG TAB PO SCH ×2 (00:41→12:46)
[2017-03-31] MEDS: PCA - TOTAL MG DILAUDID DELIVERED PER SHIFT SCH ×2 (05:34→14:00)
[2017-03-31] MEDS: HEPARIN SODIUM - SQ 10,000 UNITS/ML VIAL SQ SCH ×3 (05:34→21:19)
[2017-03-31 07:20] LABS: HEMATOCRIT 24.5 % (39.0-51.0); MEAN CELL VOLUME 80.7 FL (80.0-100.0); MEAN CORPUSCULAR HEMOGLOBIN 26.6 PG (27.0-34.0); PLATELET COUNT 184 TH/MM3 (150-450); RED BLOOD COUNT 3.03 MIL/MM3 (4.50-5.90); RED CELL DISTRIBUTION WIDTH 19.4 % (11.6-17.2); REVIEW FLAG FINAL; WHITE BLOOD COUNT 5.6 TH/MM3 (4.0-11.0)
[2017-03-31 07:44] LABS: BICARBONATE 25.2 MEQ/L (21.0-32.0); MAGNESIUM 1.9 MG/DL (1.5-2.5)
[2017-03-31] MEDS: INSULIN ASPART SUPPLEMENTAL SCALE SQ SCH ×4 (08:00→21:00)
[2017-03-31] MEDS: ASCORBIC ACID 500 MG TAB PO SCH (08:30)
[2017-03-31] MEDS: PANTOPRAZOLE SOD 40 MG DELAYED RELEASE TAB PO SCH (08:30)
[2017-03-31] MEDS: DOCUSATE SODIUM 100 MG CAP PO SCH ×2 (08:30→21:17)
[2017-03-31] MEDS: TAMSULOSIN HCL 0.4 MG CAP PO SCH ×2 (08:30→21:18)
[2017-03-31] MEDS: GABAPENTIN 300 MG CAP PO SCH ×3 (08:30→17:19)
[2017-03-31] MEDS: MORPHINE SULFATE 15 MG CONTROLLED RELEASE TAB PO SCH ×2 (08:30→21:17)
[2017-03-31] MEDS: TENOFOVIR DISOPROXIL FUMARATE 300 MG TAB PO SCH (08:30)
[2017-03-31] MEDS: FAMOTIDINE 20 MG TAB PO SCH ×2 (08:30→21:17)
[2017-03-31] MEDS: MULTIVITAMIN HEMATINIC THERAPEUTIC TAB PO SCH (08:30)
[2017-03-31] MEDS: INSULIN DETEMIR 100 UNITS/ML VIAL SQ SCH (08:31)
[2017-03-31] MEDS: ALBUMIN 25% INJ 100 ML IV SCH (08:35)
[2017-03-31] MEDS: BUDESONIDE-FORMOTEROL 160/4.5 MCG INHALER INH SCH ×2 (09:00→21:00)
[2017-03-31] MEDS: SODIUM CHLORIDE 0.9% FLUSH 5 ML FLUSH IVF SCH ×2 (09:41→21:00)
[2017-03-31] MEDS: HYDROmorphone HCL PCA 6 MG/30 ML IV SCH ×2 (09:46→22:36)
--- NOTE | 2017-03-31 11:23 | HHI.PR ---
Subjective Remarks The patient said he is having a hard time getting out of bed and ambulating because of significant pain in the left lower back. He says he will need his pain medications increased because of that. Discussed with nursing. Objective Vitals Vital Signs Date Time Temp Pulse Resp B/P (MAP) Pulse Ox O2 Delivery O2 Flow Rate FiO2 03/31/17 09:46 18 03/31/17 08:04 98.6 87 19 150/86 (107) 99 03/31/17 06:20 98.6 90 20 130/75 (93) 97 03/31/17 06:00 18 03/31/17 05:34 18 03/31/17 02:22 18 03/31/17 01:36 98.7 96 20 122/74 (90) 99 03/30/17 23:45 83 03/30/17 21:55 18 03/30/17 21:55 18 03/30/17 21:51 18 03/30/17 19:35 98.9 93 16 133/72 97 03/30/17 19:20 98.6 94 18 137/77 96 03/30/17 18:30 96 03/30/17 16:00 97.7 82 18 101/62 (75) 96 03/30/17 14:00 20 03/30/17 14:00 18 03/30/17 12:00 96 03/30/17 12:00 98.7 92 18 119/72 (88) 96 I/O 03/30/17 03/30/17 03/30/17 03/31/17 03/31/17 03/31/17 07:00 15:00 23:00 07:00 15:00 23:00 Intake Total 1090 ml 450 ml 300 ml 200 ml Output Total 1400 ml 750 ml 400 ml 250 ml Balance -310 ml -750 ml 50 ml 50 ml 200 ml Intake Oral 240 ml IV Total 850 ml 300 ml 200 ml Packed Cells 400 ml Blood Product IV Normal Saline Flush 50 ml Output Urine Total 1400 ml 750 ml 400 ml 250 ml # Voids 1 # Bowel Movements 1 2 1 Result Diagram: 03/31/1761903/31/17619 Imaging Last Impressions Renal Ultrasound 03/28/17 0000 Signed Impressions: Service Date/Time: Tuesday, March 28, 2017 18:53 - CONCLUSION: 1. Bilateral hydronephrosis and hydroureter more pronounced on the left. 2. 300 mL postvoid residual. Rey Monreal Jr., MD Chest X-Ray 03/26/17 0000 Signed Impressions: Service Date/Time: Sunday, March 26, 2017 11:15 - CONCLUSION: Minimal bibasilar parenchymal changes. Parker Way MD FACR Lumbar Spine X-Ray 03/25/17 0000 Signed Impressions: Service Date/Time: Saturday, March 25, 2017 13:17 - CONCLUSION: Instruments overlie the posterior elements at the L1-L2 level. Vishal Oneal MD Lumbar Spine MRI 03/25/17 0000 Signed Impressions: Service Date/Time: Saturday, March 25, 2017 08:45 - CONCLUSION: Discitis at L1-2 with adjacent osteomyelitis. Significant paraspinal and epidural abscess and bilateral psoas abscesses. Moderate degenerative spondylosis throughout the remainder of the lumbar spine with fairly severe canal stenosis at L4-5 and less prominent changes at other levels as described Vishal Osorio MD Lower Extremity Ultrasound 03/24/17 0000 Signed Impressions: Service Date/Time: Friday, March 24, 2017 12:42 - CONCLUSION: Negative for deep venous thrombosis. Parker Way MD FACR Scrotum Ultrasound 03/23/17 0000 Signed Impressions: Service Date/Time: Thursday, March 23, 2017 12:04 - CONCLUSION: Bilateral testicular atrophy. No torsion, inflammatory changes or other acute abnormality seen. Vishal Cevallos MD Abdomen Ultrasound 03/21/17 0000 Signed Impressions: Service Date/Time: Tuesday, March 21, 2017 15:29 - CONCLUSION: Only trace ascites which is inadequate for paracentesis. Michael Philip MD Abdomen/Pelvis CT 03/13/17 0000 Signed Impressions: Service Date/Time: February 15:19 - CONCLUSION: 1. Moderate-sized bilateral effusions with consolidative changes. 2. Moderate hepatosplenomegaly. 3. Ascites diffusely throughout the abdomen. 4. Compared to previous the effusions have enlarged. The ascites is new. The liver and spleen are stable in size. Natalio Way MD Objective Remarks GENERAL: Appears comfortable. SKIN: No rashes, warm and dry HEAD: Atraumatic. Normocephalic. EYES: Pupils equal round and reactive. Extraocular motions intact. No scleral icterus. ENT: Nose without bleeding, or drainage, Airway patent. NECK: Trachea midline. Supple CARDIOVASCULAR: Regular rate and rhythm. RESPIRATORY: Fair air entry bilaterally. No wheezes, rales, or rhonchi. BACK: Bandage in place. Significant tenderness to palpation of left lower back. GASTROINTESTINAL: Abdomen soft, diffuse tenderness to palpation, nondistended. Positive bowel sounds MUSCULOSKELETAL: No edema in the lower extremities. NEUROLOGICAL: Awake and alert. Moves all extremity. Normal speech. No focal neurological deficit. PSYCH: Teary-eyed. Procedures L1-2 laminectomy, evacuation of lumbar spinal epidural abscess 03/25 Medications and IVs Current Medications Medications (Trade) Dose Ordered Sig/Jaya Route Start Time Stop Time Status Last Admin (Zofran Inj) 4 mg Q6H PRN IVP 03/10/17 14:30 03/15/17 15:00 (Narcan Inj) 0.4 mg UNSCH PRN IV PUSH 03/10/17 14:30 (Duoneb Neb) 1 ampule Q2HR NEB PRN NEB 03/10/17 14:30 (Symbicort 160-4.5 Inh) 1 puff Q12HR INH 03/10/17 21:00 03/30/17 20:54 (D50w (Vial) Inj) 50 ml UNSCH PRN IV PUSH 03/11/17 17:15 03/27/17 20:00 (Glucagon Inj) 1 mg UNSCH PRN OTHER 03/11/17 17:15 (Vasotec Inj) 1.25 mg Q6H PRN IV PUSH 03/11/17 17:15 (Imodium) 2 mg Q4H PRN PO 03/14/17 10:00 03/15/17 15:08 (Theragran Hematinic) 1 tab DAILY PO 03/15/17 09:00 03/31/17 08:30 (Vitamin C) 1,000 mg DAILY PO 03/15/17 09:00 03/31/17 08:30 Patient Own Medication (Linagliptin (Tradjenta) 5 MG DAILY PO 03/17/17 10:00 Future Hold Oxacillin Sodium 2 gm/Sodium Chloride 100 ml @ 200 mls/hr Q4H IV 03/18/17 17:00 03/31/17 08:29 (Aldactone) 25 mg DAILY PO 03/19/17 15:00 Future Hold 03/27/17 08:58 (Oramorph Sr) 45 mg Q12HR PO 03/22/17 21:00 03/31/17 08:30 (Neurontin) 300 mg TID PO 03/24/17 09:00 03/31/17 08:30 (Vibratab) 100 mg Q12H PO 03/24/17 12:00 03/31/17 00:41 (NS Flush) 2 ml UNSCH PRN IVF 03/25/17 15:45 (NS Flush) 2 ml BID IVF 03/25/17 21:00 03/31/17 09:41 (Colace) 100 mg BID PO 03/25/17 21:00 03/31/17 08:30 (Protonix) 40 mg DAILY PO 03/26/17 09:00 03/31/17 08:30 ([place] 10-325 Mg) 1 tab Q4H PRN PO 03/25/17 15:45 ([place] 10-325 Mg) 2 tab Q4H PRN PO 03/25/17 15:45 03/29/17 12:33 (Morphine Inj) 2 mg Q2H PRN IV PUSH 03/25/17 15:45 (Morphine Inj) 4 mg Q2H PRN IV PUSH 03/25/17 15:45 03/27/17 15:09 (Tylenol) 650 mg Q4H PRN PO 03/25/17 15:45 (Dilaudid PSYCHOLOGY LECTURER Inj) 6 mg UNSCH IV 03/25/17 21:15 03/31/17 09:46 PSYCHOLOGY LECTURER Dosage Infused (Pha) 1 Q8HR .XX 03/25/17 22:00 03/31/17 05:34 (Narcan Inj) 0.4 mg UNSCH PRN IV PUSH 03/25/17 21:00 (Viread) 300 mg DAILY PO 03/28/17 09:00 03/31/17 08:30 (Heparin Inj) 5,000 units Q8HR SQ 03/28/17 21:00 03/30/17 12:13 (Pepcid) 10 mg BID PO 03/28/17 21:00 03/31/17 08:30 (Flomax) 0.4 mg Q12HR PO 03/29/17 10:30 03/31/17 08:30 (Levemir Inj) 10 units DAILY SQ 03/30/17 09:00 03/31/17 08:31 (NovoLOG SUPPLEMENTAL SCALE) 1 ACHS SLIDING SCALE SQ 03/30/17 17:00 03/30/17 22:29 A/P Problem List: (1) Staphylococcus aureus bacteremia with sepsis ICD Code: A41.01 - Sepsis due to Methicillin susceptible Staphylococcus aureus Status: Acute (2) Liver cirrhosis ICD Code: K74.60 - Unspecified cirrhosis of liver (3) Uncontrolled hypertension ICD Code: I10 - Essential (primary) hypertension (4) COPD (chronic obstructive pulmonary disease) ICD Code: J44.9 - Chronic obstructive pulmonary disease, unspecified (5) Diabetes mellitus with hyperglycemia ICD Code: E11.65 - Type 2 diabetes mellitus with hyperglycemia Status: Chronic (6) Pleural effusion ICD Code: J90 - Pleural effusion, not elsewhere classified (7) Hyponatremia ICD Code: E87.1 - Hypo-osmolality and hyponatremia (8) Ascites of liver ICD Code: R18.8 - Other ascites Status: Chronic (9) Anemia ICD Code: D64.9 - Anemia, unspecified Status: Chronic (10) Anasarca ICD Code: R60.1 - Generalized edema Status: Acute (11) Abdominal pain ICD Code: R10.9 - Unspecified abdominal pain Status: Acute (12) Testicular pain, left ICD Code: N50.812 - Left testicular pain Status: Acute (13) UTI (urinary tract infection) ICD Code: N39.0 - Urinary tract infection, site not specified Status: Acute (14) Back pain ICD Code: M54.9 - Dorsalgia, unspecified Status: Acute (15) Low grade fever ICD Code: R50.9 - Fever, unspecified Status: Acute (16) Bilateral leg edema ICD Code: R60.0 - Localized edema Status: Acute (17) Discitis of lumbar region ICD Code: M46.46 - Discitis, unspecified, lumbar region Status: Acute (18) Epidural abscess ICD Code: G06.2 - Extradural and subdural abscess, unspecified Status: Acute (19) Osteomyelitis of vertebra of lumbosacral region ICD Code: M46.27 - Osteomyelitis of vertebra, lumbosacral region Status: Acute (20) Psoas abscess ICD Code: K68.12 - Psoas muscle abscess Status: Acute Assessment and Plan Discitis/ osteomyelitis/ epidural abscess/ bilateral psoas abscess Patient complains of lumbar spine pain, on exam patient has tenderness to palpation of lumbar spine and right lower extremity weakness. 03/25 Lumbar spine mri shows discitis, osteomyelitis, epidural abscess, and bilateral psoas abscess. Placed a stat neurosurgery consultation, discussed the case with Dr Amilcar Richardson's wet process miller head assistant who reviewed MRI and discussed the case with him and said patient needs to have surgery. S/p L1-2 laminectomy, evacuation of lumbar spinal epidural abscess 03/25. - follow up with neurosurgery. - pain control. - PT. - antibiotics per ID. Currently on oxacillin and doxycycline. Staphylococcus aureus bacteremia with sepsis The patient was admitted to the medical floor, treated with IV antibiotics, infectious disease consulted. Source likely the urine since urine culture is growing MSSA. - The patient has been started on fluconazole for yeast urine on 03/21. D/c per ID. - The patient was started on oral doxycycline for left testicular pain and suspected epididymitis. Acute renal failure FENa calculated at 3%. Renal US showed: Bilateral hydronephrosis and hydroureter , more pronounced on the left. Urology consult appreciated. Creatinine improving. - Tamsulosin was started by urology. - Continue to hold diuretics and lisinopril. - s/p IVFs. - avoid nephrotoxic agents. Left testicular pain Testicular ultrasound showed bilateral testicular atrophy. No distortion, inflammatory changes or other acute abnormality seen. GC/chlamydia PCR negative. - started the patient on oral doxycycline 100 mg by mouth twice a day for 7 days to treat the patient empirically for epididymitis. Liver cirrhosis/ Hepatitis B Abdomen and pelvis CT performed on 03/13/17 show moderate-sized bilateral pleural effusions with consolidative changes. Moderate hepatosplenomegaly. Ascites diffusely throughout the abdomen which compared to a previous CT abdomen and pelvis obtained on 03/10/17 was increased. There is a report of more prominent portal vein and interval enlargement of the spleen which measures 17.7 cm, findings consistent with increasing portal hypertension. Ultrasound-guided abdominal paracentesis was ordered, however there is not enough fluid for the procedure to be done. - holding diuresis in the setting of ARF. - GI following. Started on tenofovir for treatment of hepatitis B. - pain control as needed. - d/c IV albumin. Hypertension Blood pressure initially uncontrolled. Currently WNL. - hold lisinopril in the setting of renal insufficiency. COPD (chronic obstructive pulmonary disease On prednisone for COPD which seems to be stable. - s/p prednisone taper. Diabetes mellitus with hyperglycemia Blood sugars are still labile. - Continue Levemir 10 units daily. - Place on low NovoLog insulin scale. Continue to monitor Accu-Cheks. Pleural effusion Pleural effusion likely overload and diastolic congestive heart failure secondary to liver cirrhosis. Echocardiogram shows a normal systolic function with an EF in the range of 55-60%. Wall thickness measure at the upper limits of normal. - holding diuretics. Celiac artery stenosis/ Abdominal pain 03/21 ultrasound of the abdomen SMA/celiac Doppler showed a greater than 70% stenosis in the celiac artery. Less than 50% stenosis in the mesenteric artery. Vascular surgery recommendations appreciated. Discussed the case with Dr. Gurrola who states that abdominal pain is not coming from this finding. - Recommended outpatient treatment with pain crew leader/control room operator. Acute blood loss anemia Iron low, ferritin normal. TIBC and percent saturation not done. Ordered. Anemic following surgery. 2 units prbc ordered 03/26. Hemoglobin 7 03/30, s/p transfusion of an additional unit. Improved. - follow CBC and transfuse as needed. GI Prophylaxis: Continue PPI. VT prophylaxis: Heparin Discharge Planning Awaiting improvement Problem Qualifiers (1) COPD (chronic obstructive pulmonary disease): Qualified Codes: J42 - Unspecified chronic bronchitis (2) Diabetes mellitus with hyperglycemia: Qualified Codes: E11.65 - Type 2 diabetes mellitus with hyperglycemia; Z79.4 - long term care phlebotomist (current) use of insulin (3) Anemia: Qualified Codes: D64.9 - Anemia, unspecified Jase Griffin DO Mar 31, 2017 11:23
--- NOTE | 2017-03-31 15:04 | HHI.IDPN ---
Note Infectious Disease Note Now continues to have back pain. says it is controlled with pain meds. Afebrile. Blood culture 03/25, 03/21 and 03/17 - no growth. Prior blood culture on 03/10 - staph aureus and urine culture had staph aureus. Patient is status post evacuation of lumbar spine epidural abscess/L1L2 laminectomy. 2D ECHO has no vegetations. The patient underwent right colon resection and also small bowel resection for ischemic cecum and fascia and partial ischemia of the distal terminal ileum on 01/29/2017. After the surgery and he also had report of Clostridium perfringens at the margins of the surgical tissue on the pathology specimen. PAST MEDICAL HISTORY: 1. Esophageal varices. 2. Hepatitis C. 3. History of cirrhosis. 4. Recent bowel resection. 5. Diabetes mellitus. 6. History of laparoscopic cholecystectomy. 7. History of back surgery. 8. Neuropathy. 9. Vasectomy. 10. History of bladder cancer. 11. History of bilateral knee surgery. 12. History of banding of esophageal varices. ALLERGIES: 1. PENTAZOCINE. 2. CODEINE. 3. KETORFANOL. 4. IV DYE. 5. IODINATED CONTRAST. ANTIBIOTICS: Oxacillin. fluconazole. OBJECTIVE: Vital Signs Date Time Temp Pulse Resp B/P (MAP) Pulse Ox O2 Delivery O2 Flow Rate FiO2 03/31/17 14:00 18 03/31/17 11:54 97.6 89 20 152/87 (108) 100 03/31/17 09:46 18 03/31/17 08:04 98.6 87 19 150/86 (107) 99 03/31/17 06:20 98.6 90 20 130/75 (93) 97 03/31/17 06:00 18 03/31/17 05:34 18 03/31/17 02:22 18 03/31/17 01:36 98.7 96 20 122/74 (90) 99 03/30/17 23:45 83 03/30/17 21:55 18 03/30/17 21:55 18 03/30/17 21:51 18 03/30/17 19:35 98.9 93 16 133/72 97 03/30/17 19:20 98.6 94 18 137/77 96 03/30/17 18:30 96 03/30/17 16:00 97.7 82 18 101/62 (75) 96 Laboratory Tests Test 03/30/17 05:29 03/31/17 06:20 White Blood Count 5.9 TH/MM3 5.6 TH/MM3 Red Blood Count 2.60 MIL/MM3 3.03 MIL/MM3 Hemoglobin 7.0 GM/DL 8.1 GM/DL Hematocrit 21.3 % 24.5 % Mean Corpuscular Volume 82.0 FL 80.7 FL Mean Corpuscular Hemoglobin 26.9 PG 26.6 PG Mean Corpuscular Hemoglobin Concent 32.8 % 33.0 % Red Cell Distribution Width 17.9 % 19.4 % Platelet Count 189 TH/MM3 184 TH/MM3 Mean Platelet Volume 8.2 FL 8.3 FL Laboratory Tests Test 03/30/17 05:29 03/31/17 06:20 Blood Urea Nitrogen 35 MG/DL 33 MG/DL Creatinine 1.42 MG/DL 1.29 MG/DL Random Glucose 143 MG/DL 228 MG/DL Calcium Level 8.3 MG/DL 8.2 MG/DL Magnesium Level 2.1 MG/DL 1.9 MG/DL Sodium Level 139 MEQ/L 138 MEQ/L Potassium Level 4.1 MEQ/L 4.0 MEQ/L Chloride Level 103 MEQ/L 104 MEQ/L Carbon Dioxide Level 26.6 MEQ/L 25.2 MEQ/L Anion Gap 9 MEQ/L 9 MEQ/L Estimat Glomerular Filtration Rate 50 ML/MIN 56 ML/MIN IMAGING: Chest X-Ray 03/26/17 0000 Signed Impressions: Service Date/Time: Sunday, March 26, 2017 11:15 - CONCLUSION: Minimal bibasilar parenchymal changes. Parker Way MD FACR Lumbar Spine MRI 03/25/17 0000 Signed Impressions: Service Date/Time: Saturday, March 25, 2017 08:45 - CONCLUSION: Discitis at L1-2 with adjacent osteomyelitis. Significant paraspinal and epidural abscess and bilateral psoas abscesses. Moderate degenerative spondylosis throughout the remainder of the lumbar spine with fairly severe canal stenosis at L4-5 and less prominent changes at other levels as described Vishal Osorio MD Lower Extremity Ultrasound 03/24/17 0000 Signed Impressions: Service Date/Time: Friday, March 24, 2017 12:42 - CONCLUSION: Negative for deep venous thrombosis. Parker Way MD FACR Abdomen Ultrasound 03/20/17 0000 Signed Impressions: Service Date/Time: March 18:32 - CONCLUSION: 1. 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 2. Less than 50%% stenosis in the superior mesenteric artery. Jase Estes MD Abdomen/Pelvis CT 03/13/17 0000 Signed Impressions: Service Date/Time: , March 13, 2017 15:19 - CONCLUSION: 1. Moderate-sized bilateral effusions with consolidative changes. 2. Moderate hepatosplenomegaly. 3. Ascites diffusely throughout the abdomen. 4. Compared to previous the effusions have enlarged. The ascites is new. The liver and spleen are stable in size. Natalio Way MD Chest X-Ray 03/10/17 0000 Signed Impressions: Service Date/Time: Friday, March 10, 2017 12:09 - CONCLUSION: No acute disease. There is no evidence of pneumonia. Jase Estes MD PHYSICAL EXAMINATION: GENERAL: No acute distress. Awake and alert and oriented. HEENT: No icterus. Oropharynx moist mucosa without lesions. NECK: Supple. LUNGS: Clear breath sounds. HEART: Regular S1-S2 without murmurs, rubs or gallops. ABDOMEN: Soft, Positive bowel sounds. EXTREMITIES: No clubbing, cyanosis or edema. SKIN: No rash. NEUROLOGIC: Non focal. PSYCHIATRIC: Calm and cooperative. IMPRESSION: 1. Bacteremia due to staph aureus. Persistent positive blood cultures. - Discitis and osteomyelitis at L1- L2 and epidural, paraspinal and psoas abscess bilateral. Staph aureus. - post evacuation of lumbar spine epidural abscess/L1L2 laminectomy. 2. Urinary tract infection due to staph aureus. 3. Abdominal pain of questionable etiology. Most likely had referred pain from psoas abscess, discitis. 4. Fever low grade. Improved. 5. Probable epididymitis/orchitis. RECOMMENDATIONS: 1. Continue Oxacillin IV. x 6 weeks until May 06, 2017 for discitis. 2. Continue Doxycycline Po 7 more days. Given for epididimitis/orchitis. 3. Monitor temp. and WBC. Florentino Burnette MD Mar 31, 2017 15:04
[2017-03-31] MEDS: ACETAMINOPHEN/HYDROcodone 325 MG/10 MG TAB PO PRN (15:48)
[2017-04-01] MEDS: DOXYCYCLINE HYCLATE 100 MG TAB PO SCH ×3 (00:44→23:00)
[2017-04-01] MEDS: OXACILLIN INJ 2 GM in SODIUM CHLORIDE 0.9% INJ 100 ML IV SCH ×6 (00:46→21:40)
[2017-04-01 00:54] VITALS: BP 161/82; PULSE 86; RESP 18; TEMP 98.4; O2SAT 99
[2017-04-01] MEDS: HEPARIN SODIUM - SQ 10,000 UNITS/ML VIAL SQ SCH ×3 (05:08→21:39)
[2017-04-01] MEDS: ENALAPRILAT 1.25 MG/ML VIAL IV PUSH PRN (05:08)
[2017-04-01 05:39] VITALS: BP 178/86; PULSE 94; RESP 18; TEMP 98.2; O2SAT 98
[2017-04-01 08:01] LABS: HEMATOCRIT 27.2 % (39.0-51.0); MEAN CELL VOLUME 81.2 FL (80.0-100.0); MEAN CORPUSCULAR HEMOGLOBIN 26.5 PG (27.0-34.0); MEAN CORPUSCULAR HGB CONC 32.7 % (32.0-36.0); PLATELET COUNT 193 TH/MM3 (150-450); RED BLOOD COUNT 3.35 MIL/MM3 (4.50-5.90); RED CELL DISTRIBUTION WIDTH 18.9 % (11.6-17.2); REVIEW FLAG FINAL; WHITE BLOOD COUNT 6.5 TH/MM3 (4.0-11.0)
[2017-04-01 08:10] VITALS: BP 178/67; PULSE 91; RESP 20; TEMP 98.6; O2SAT 98
[2017-04-01 08:37] LABS: BICARBONATE 23.5 MEQ/L (21.0-32.0); MAGNESIUM 1.8 MG/DL (1.5-2.5); POTASSIUM 3.9 MEQ/L (3.5-5.1)
[2017-04-01 08:41] LABS: INDIRECT BILIRUBIN 0.2 MG/DL (0.0-0.8); TOTAL BILIRUBIN ADULT 0.4 MG/DL (0.2-1.0)
[2017-04-01] MEDS: MULTIVITAMIN HEMATINIC THERAPEUTIC TAB PO SCH (09:00)
[2017-04-01] MEDS: SODIUM CHLORIDE 0.9% FLUSH 5 ML FLUSH IVF SCH ×2 (09:00→21:00)
[2017-04-01] MEDS: INSULIN DETEMIR 100 UNITS/ML VIAL SQ SCH (10:07)
[2017-04-01] MEDS: DOCUSATE SODIUM 100 MG CAP PO SCH ×2 (10:09→21:39)
[2017-04-01] MEDS: INSULIN ASPART SUPPLEMENTAL SCALE SQ SCH ×4 (10:09→21:51)
[2017-04-01] MEDS: PANTOPRAZOLE SOD 40 MG DELAYED RELEASE TAB PO SCH (10:10)
[2017-04-01] MEDS: TENOFOVIR DISOPROXIL FUMARATE 300 MG TAB PO SCH (10:10)
[2017-04-01] MEDS: FAMOTIDINE 20 MG TAB PO SCH ×2 (10:10→21:39)
[2017-04-01] MEDS: GABAPENTIN 300 MG CAP PO SCH ×3 (10:10→17:52)
[2017-04-01] MEDS: ASCORBIC ACID 500 MG TAB PO SCH (10:10)
[2017-04-01] MEDS: TAMSULOSIN HCL 0.4 MG CAP PO SCH ×2 (10:10→21:39)
[2017-04-01] MEDS: MORPHINE SULFATE 15 MG CONTROLLED RELEASE TAB PO SCH ×2 (10:11→21:39)
[2017-04-01] MEDS: HYDROmorphone HCL PCA 6 MG/30 ML IV SCH (10:12)
[2017-04-01] MEDS: BUDESONIDE-FORMOTEROL 160/4.5 MCG INHALER INH SCH ×2 (10:24→21:00)
[2017-04-01 12:10] VITALS: BP 156/80; PULSE 101; RESP 20; TEMP 98.4; O2SAT 98
[2017-04-01] MEDS: ACETAMINOPHEN/HYDROcodone 325 MG/10 MG TAB PO PRN ×2 (13:53→17:52)
--- NOTE | 2017-04-01 13:55 | HHI.PR ---
Subjective Remarks Follow-up for discitis, MSSA bacteremia, epidural abscess. Patient is currently resting in bed. He reports significant use of Dilaudid via TRANSIT OPERATIONS SUPERVISOR pump. No fever or chills. He is able to get up and walk to the bedside commode by himself with walker. Objective Vitals Vital Signs Date Time Temp Pulse Resp B/P (MAP) Pulse Ox O2 Delivery O2 Flow Rate FiO2 04/01/17 12:10 98.4 101 20 156/80 (105) 98 04/01/17 10:12 22 04/01/17 08:10 98.6 91 20 178/67 (104) 98 04/01/17 05:39 98.2 94 18 178/86 (116) 98 04/01/17 00:54 98.4 86 18 161/82 (108) 99 03/31/17 23:00 90 03/31/17 22:36 18 03/31/17 22:00 18 03/31/17 20:52 98.3 88 18 154/82 (106) 100 03/31/17 16:48 18 03/31/17 16:35 94 03/31/17 16:30 98.6 90 20 156/87 (110) 99 03/31/17 14:06 18 03/31/17 14:00 18 I/O 03/31/17 03/31/17 03/31/17 04/01/17 04/01/17 04/01/17 07:00 15:00 23:00 07:00 15:00 23:00 Intake Total 300 ml 300 ml 600 ml Output Total 250 ml 800 ml 600 ml Balance 50 ml 300 ml -200 ml -600 ml Intake Oral 600 ml IV Total 300 ml 300 ml Output Urine Total 250 ml 800 ml 600 ml # Bowel Movements 1 1 Result Diagram: 04/01/17 0620 04/01/17 0620 Imaging Last Impressions Renal Ultrasound 03/28/17 0000 Signed Impressions: Service Date/Time: Tuesday, March 28, 2017 18:53 - CONCLUSION: 1. Bilateral hydronephrosis and hydroureter more pronounced on the left. 2. 300 mL postvoid residual. Rey Monreal Jr., MD Chest X-Ray 03/26/17 0000 Signed Impressions: Service Date/Time: Sunday, March 26, 2017 11:15 - CONCLUSION: Minimal bibasilar parenchymal changes. Parker Way MD FACR Lumbar Spine X-Ray 03/25/17 0000 Signed Impressions: Service Date/Time: Saturday, March 25, 2017 13:17 - CONCLUSION: Instruments overlie the posterior elements at the L1-L2 level. Vishal Oneal MD Lumbar Spine MRI 03/25/17 0000 Signed Impressions: Service Date/Time: Saturday, March 25, 2017 08:45 - CONCLUSION: Discitis at L1-2 with adjacent osteomyelitis. Significant paraspinal and epidural abscess and bilateral psoas abscesses. Moderate degenerative spondylosis throughout the remainder of the lumbar spine with fairly severe canal stenosis at L4-5 and less prominent changes at other levels as described Vishal Osorio MD Lower Extremity Ultrasound 03/24/17 0000 Signed Impressions: Service Date/Time: Friday, March 24, 2017 12:42 - CONCLUSION: Negative for deep venous thrombosis. Parker Way MD FACR Scrotum Ultrasound 03/23/17 0000 Signed Impressions: Service Date/Time: Thursday, March 23, 2017 12:04 - CONCLUSION: Bilateral testicular atrophy. No torsion, inflammatory changes or other acute abnormality seen. Vishal Cevallos MD Abdomen Ultrasound 03/21/17 0000 Signed Impressions: Service Date/Time: Tuesday, March 21, 2017 15:29 - CONCLUSION: Only trace ascites which is inadequate for paracentesis. Michael Philip MD Abdomen/Pelvis CT 03/13/17 0000 Signed Impressions: Service Date/Time: February 15:19 - CONCLUSION: 1. Moderate-sized bilateral effusions with consolidative changes. 2. Moderate hepatosplenomegaly. 3. Ascites diffusely throughout the abdomen. 4. Compared to previous the effusions have enlarged. The ascites is new. The liver and spleen are stable in size. Natalio Way MD Objective Remarks GENERAL: Alert, oriented 3, NAD. SKIN: Warm and dry. HEAD: Normocephalic. EYES: No scleral icterus. No injection or drainage. NECK: Supple, trachea midline. No JVD or lymphadenopathy. CARDIOVASCULAR: Regular rate and rhythm without murmurs, gallops, or rubs. RESPIRATORY: Breath sounds equal bilaterally. No accessory muscle use. GASTROINTESTINAL: Abdomen soft, non-tender, nondistended. MUSCULOSKELETAL: No cyanosis, or edema. BACK: Nontender without obvious deformity. No CVA tenderness. Procedures L1-2 laminectomy, evacuation of lumbar spinal epidural abscess 03/25 A/P Problem List: (1) Staphylococcus aureus bacteremia with sepsis ICD Code: A41.01 - Sepsis due to Methicillin susceptible Staphylococcus aureus Status: Acute (2) Liver cirrhosis ICD Code: K74.60 - Unspecified cirrhosis of liver (3) Uncontrolled hypertension ICD Code: I10 - Essential (primary) hypertension (4) COPD (chronic obstructive pulmonary disease) ICD Code: J44.9 - Chronic obstructive pulmonary disease, unspecified (5) Diabetes mellitus with hyperglycemia ICD Code: E11.65 - Type 2 diabetes mellitus with hyperglycemia Status: Chronic (6) Pleural effusion ICD Code: J90 - Pleural effusion, not elsewhere classified (7) Hyponatremia ICD Code: E87.1 - Hypo-osmolality and hyponatremia (8) Ascites of liver ICD Code: R18.8 - Other ascites Status: Chronic (9) Anemia ICD Code: D64.9 - Anemia, unspecified Status: Chronic (10) Anasarca ICD Code: R60.1 - Generalized edema Status: Acute (11) Abdominal pain ICD Code: R10.9 - Unspecified abdominal pain Status: Acute (12) Testicular pain, left ICD Code: N50.812 - Left testicular pain Status: Acute (13) UTI (urinary tract infection) ICD Code: N39.0 - Urinary tract infection, site not specified Status: Acute (14) Back pain ICD Code: M54.9 - Dorsalgia, unspecified Status: Acute (15) Low grade fever ICD Code: R50.9 - Fever, unspecified Status: Acute (16) Bilateral leg edema ICD Code: R60.0 - Localized edema Status: Acute (17) Discitis of lumbar region ICD Code: M46.46 - Discitis, unspecified, lumbar region Status: Acute (18) Epidural abscess ICD Code: G06.2 - Extradural and subdural abscess, unspecified Status: Acute (19) Osteomyelitis of vertebra of lumbosacral region ICD Code: M46.27 - Osteomyelitis of vertebra, lumbosacral region Status: Acute (20) Psoas abscess ICD Code: K68.12 - Psoas muscle abscess Status: Acute Assessment and Plan Discitis/ osteomyelitis/ epidural abscess/ bilateral psoas abscess - Lumbar spine MRI on 03/25/2017 shows discitis, osteomyelitis, epidural abscess , and bilateral psoas abscess. - S/p L1-2 laminectomy, evacuation of lumbar spinal epidural abscess 03/25. - Neurosurgery is okay with discharge. - antibiotics per ID. Currently on oxacillin until 05/06/2017 and doxycycline until 04/07/2017. Staphylococcus aureus bacteremia with sepsis - Source likely the urine since urine culture is growing MSSA. - The patient has been started on fluconazole for yeast urine on 03/21. D/c per ID. - The patient was started on oral doxycycline for left testicular pain and suspected epididymitis. Acute renal injury - FENa calculated at 3%. Renal US showed: Bilateral hydronephrosis and hydroureter, more pronounced on the left. - Urology consult appreciated. Creatinine improving. 1.73 --> 1.15 - Tamsulosin was started by urology. - Continue to hold diuretics and lisinopril. - s/p IVFs. - avoid nephrotoxic agents. Left testicular pain - Testicular ultrasound showed bilateral testicular atrophy. No distortion, inflammatory changes or other acute abnormality seen. - GC/chlamydia PCR negative. - started the patient on oral doxycycline 100 mg by mouth twice a day for 7 days to treat the patient empirically for epididymitis. Liver cirrhosis/ Hepatitis B - Abdomen and pelvis CT performed on 03/13/17 show moderate-sized bilateral pleural effusions with consolidative changes. Moderate hepatosplenomegaly. Ascites diffusely throughout the abdomen which compared to a previous CT abdomen and pelvis obtained on 03/10/17 was increased. There is a report of more prominent portal vein and interval enlargement of the spleen which measures 17.7 cm, findings consistent with increasing portal hypertension. Ultrasound-guided abdominal paracentesis was ordered, however there is not enough fluid for the procedure to be done. - holding diuresis in the setting of ARF. - GI following. Started on tenofovir for treatment of hepatitis B. - pain control as needed. - d/c IV albumin. COPD (chronic obstructive pulmonary disease - DuoNeb PRN. Diabetes mellitus - Continue Levemir 10 units daily. - Place on low NovoLog insulin scale. Continue to monitor Accu-Cheks. - Blood glucose well controlled. Goal 140-180. Celiac artery stenosis/ Abdominal pain 03/21 ultrasound of the abdomen SMA/celiac Doppler showed a greater than 70% stenosis in the celiac artery. Less than 50% stenosis in the mesenteric artery. Vascular surgery recommendations appreciated. Discussed the case with Dr. Gurrola who states that abdominal pain is not coming from this finding. - Recommended outpatient treatment with pain program control analyst. Acute blood loss anemia - Iron low, ferritin normal. TIBC and percent saturation not done. Ordered. Anemic following surgery. 2 units prbc ordered 03/26. Hemoglobin 7 03/30, s/p transfusion of an additional unit. Improved. - follow CBC and transfuse as needed. Full code. Heparin SQ. Problem Qualifiers (1) COPD (chronic obstructive pulmonary disease): Qualified Codes: J42 - Unspecified chronic bronchitis (2) Diabetes mellitus with hyperglycemia: Qualified Codes: E11.65 - Type 2 diabetes mellitus with hyperglycemia; Z79.4 - senior living (current) use of insulin (3) Anemia: Qualified Codes: D64.9 - Anemia, unspecified Padma Drew DO Apr 01, 2017 13:55
[2017-04-01] MEDS ORDERED: MAGNESIUM HYDROXIDE SUSP 30 ML CUP PO PRN (14:15)
[2017-04-01] MEDS ORDERED: SENNOSIDES 8.6 MG TAB PO PRN (14:15)
[2017-04-01] MEDS ORDERED: BISACODYL 10 MG SUPP RECTAL PRN (14:15)
--- NOTE | 2017-04-01 15:32 | PD.WCN.NOT ---
Wound Consult Description: Medial lumbar incision Recommendation: Continue Shamika dressing changes to medial lumbar back incision as recommended by neurosurgery. Dressings can be changed every 3 to 5 days. Neg Pressure Wound Therapy Wound Location Wound Location: Medial lumbar incision Wound Description Length: 3.8cm Width: 0.1cm Depth: 0.2cm Wound bed appearance: 100% beefy red granulation tissue minimal active sanguinous drainage without odor. Periwound appearance: Other (has some maceration and scattered small delated blood filled blisters. Wound where BUTCH drain was is now indurated with pink and yellow tissue. Wound is ~1cm x ~1cm.) Settings Suction: Other (80 mm/hg suction continuous low) Intensity: Low Number of pieces: other (No foam was used, one dressing pad was used) Additonal Information Patient seen on for SHAMIKA dressing change. Patient was premedicated for pain prior to dressing change. Removed saturated SHAMIKA dressing in place to reveal wound. Cleansed wound with normal saline. Skin prep was then applied to periwound over deflated blood blisters. 4x 8inch Shamika dressing was then placed over wound, with portion of tubing with suction pad placed over draining incision. 2x2 gauze pad was placed over BUTCH drain site at 1 o'clock to periwound. Butch drain site is now indurated and noted with wound that measures ~ 1cm x ~1cm with pink and yellow tissue and minimal sero-sanguinous drainage that is without odor.Window paned dressing with transparent drape strips. Patient tolerated procedure fairly with pain medication.SHAMIKA NPTW functioning properly. Patient positioned for comfort before leaving room with the assistance of Ej VEE elwell. Shanta Fitzgerald neurosurgery was notified of periwound condition and of induration to BUTCH site. Ostomy Date of Surgery: Mar 25, 2017 [facility] Apr 01, 2017 15:32
[2017-04-01] MEDS: HYDROmorphone HCL PF 1 MG/ML VIAL IV PUSH PRN ×2 (15:41→22:29)
[2017-04-01 16:40] VITALS: BP 153/87; PULSE 96; RESP 20; TEMP 98.4; O2SAT 100
[2017-04-01 20:00] VITALS: BP 160/84; PULSE 76; RESP 18; TEMP 98.1; O2SAT 100
[2017-04-02] VITALS (9 sets, daily range): BP systolic 152–177; BP diastolic 78–101; PULSE 72–93; RESP 16–20; TEMP 98–98.9; O2SAT 98–100
[2017-04-02] MEDS: ACETAMINOPHEN/HYDROcodone 325 MG/10 MG TAB PO PRN ×4 (01:23→15:27)
[2017-04-02] MEDS: OXACILLIN INJ 2 GM in SODIUM CHLORIDE 0.9% INJ 100 ML IV SCH ×3 (01:24→09:16)
[2017-04-02] MEDS: HEPARIN SODIUM - SQ 10,000 UNITS/ML VIAL SQ SCH ×3 (05:35→21:23)
[2017-04-02] MEDS: HYDROmorphone HCL PF 1 MG/ML VIAL IV PUSH PRN ×2 (06:19→12:30)
[2017-04-02] MEDS: INSULIN ASPART SUPPLEMENTAL SCALE SQ SCH ×4 (08:00→21:00)
[2017-04-02] MEDS: SODIUM CHLORIDE 0.9% FLUSH 5 ML FLUSH IVF SCH ×2 (09:00→21:00)
[2017-04-02] MEDS: DOCUSATE SODIUM 100 MG CAP PO SCH ×2 (09:13→21:23)
[2017-04-02] MEDS: TAMSULOSIN HCL 0.4 MG CAP PO SCH ×2 (09:14→21:23)
[2017-04-02] MEDS: GABAPENTIN 300 MG CAP PO SCH ×3 (09:14→17:05)
[2017-04-02] MEDS: PANTOPRAZOLE SOD 40 MG DELAYED RELEASE TAB PO SCH (09:14)
[2017-04-02] MEDS: INSULIN DETEMIR 100 UNITS/ML VIAL SQ SCH (09:14)
[2017-04-02] MEDS: ASCORBIC ACID 500 MG TAB PO SCH (09:14)
[2017-04-02] MEDS: FAMOTIDINE 20 MG TAB PO SCH ×2 (09:15→21:37)
[2017-04-02] MEDS: MULTIVITAMIN HEMATINIC THERAPEUTIC TAB PO SCH (09:15)
[2017-04-02] MEDS: MORPHINE SULFATE 15 MG CONTROLLED RELEASE TAB PO SCH ×2 (09:15→21:23)
[2017-04-02] MEDS: BUDESONIDE-FORMOTEROL 160/4.5 MCG INHALER INH SCH ×2 (09:16→21:00)
[2017-04-02] MEDS: TENOFOVIR DISOPROXIL FUMARATE 300 MG TAB PO SCH (09:16)
--- NOTE | 2017-04-02 11:09 | HHI.NSPN ---
(Shanta Jones) Note Status Status: Progress Note (Shanta Jones) Interval History Interval History Mr. Parks is a 66-year-old male who was admitted secondary to right lower quadrant pain with sepsis. She has a history of a bowel resection approximately 1.5 months ago. There was suspicion of bacterial enteritis or colitis is present in place since his recent surgical site at risk so close monitoring and treatments are initiated. His surgeon has been consulted. Nausea and vomiting was present at time of admit. he is a smoker. history of COPD. Three weeks ago he underwent a laparotomy. He has developed extremely severe pain with radiculopathy in his right lower extremity, and now significant weakness in his legs. No incontinence of stool or urine. MRI L spine showed a large epidural abscess with spinal cord compression. neurosurgical consultation was requested. s/p L1-2 laminectomy with evacuation of lumbar spinal epidural abscess, and placement of wound vac 03/25/1703/26: laying in bed alert. c/o of intractable back pain - has SENIOR NET APPLICATION DEVELOPER pump at bedside, stable lower extremity weakness 03/27: pt seen this morning during rounds, persistent intractable lumbar pain. SENIOR NET APPLICATION DEVELOPER not controlling pain. 03/28: reports today he feels his lumbar pain and lower extremity strength slowly improving. custom TLSO delivered. 04/02: reports back pain and LE weakness improving, his pain is much better controlled. dw wound care nurse yesterday regarding wound following wound vac dressing change. pt also refusing to wear custom molded brace and only will wear quick draw corset. (Shanta Jones) Labs, Micro, & Vital Signs Results Date Time Temp Pulse Resp B/P (MAP) Pulse Ox O2 Delivery O2 Flow Rate FiO2 04/02/17 09:42 86 04/02/17 08:16 98.2 86 19 162/82 (108) 100 04/02/17 04:00 98.4 85 18 160/86 (110) 98 04/02/17 01:22 98.9 90 19 160/83 (108) 100 04/02/17 00:00 98.0 72 18 152/78 (102) 99 04/01/17 20:00 98.1 76 18 160/84 (109) 100 04/01/17 16:40 98.4 96 20 153/87 (109) 100 04/01/17 12:10 98.4 101 20 156/80 (105) 98 Constitutional Vital Signs Date Time Temp Pulse Resp B/P (MAP) Pulse Ox O2 Delivery O2 Flow Rate FiO2 04/02/17 09:42 86 04/02/17 08:16 98.2 86 19 162/82 (108) 100 04/02/17 04:00 98.4 85 18 160/86 (110) 98 04/02/17 01:22 98.9 90 19 160/83 (108) 100 04/02/17 00:00 98.0 72 18 152/78 (102) 99 04/01/17 20:00 98.1 76 18 160/84 (109) 100 04/01/17 16:40 98.4 96 20 153/87 (109) 100 04/01/17 12:10 98.4 101 20 156/80 (105) 98 (Shanta Jones) Review of Systems Constitutional: DENIES: Fever Musculoskeletal: COMPLAINS OF: Back pain (improving) Neurologic: DENIES: Headache (Shanta Jones) Physical Exam Mr. Parks is alert, no acute distress. Speech is fluent. Follows commands well. Cranial nerve examination: pupils equal. Facial motor symmetrical. Neck is soft and supple. Muscle strength: moves upper extremities with good strength. In the lower extremities, strength is 5-/5 in both iliopsoas, quadriceps, hamstrings, 5/5 plantar flexion, dorsiflexion. Sensory examination is grossly intact to light touch in both lower extremities, symmetrically. Lumbar wound with wound vac dressing in place, intact with good suction. Mild induration noted around TOM drain site. Moving better with decrease in back pain. (Shanta Jones) Medications Current Medications Current Medications Medications (Trade) Dose Ordered Sig/Jaya Route PRN Reason Start Time Stop Time Status Last Admin Dose Admin Ondansetron HCl (Zofran Inj) 4 mg Q6H PRN IVP NAUSEA OR VOMITING 03/10/17 14:30 03/15/17 15:00 Naloxone HCl (Narcan Inj) 0.4 mg UNSCH PRN IV PUSH SEE LABEL COMMENTS 03/10/17 14:30 Albuterol/ Ipratropium (Duoneb Neb) 1 ampule Q2HR NEB PRN NEB SHORTNESS OF BREATH 03/10/17 14:30 Budesonide/ Formoterol Fumarate (Symbicort 160-4.5 Inh) 1 puff Q12HR INH 03/10/17 21:00 04/02/17 09:16 Dextrose (D50w (Vial) Inj) 50 ml UNSCH PRN IV PUSH HYPOGLYCEMIA-SEE COMMENTS 03/11/17 17:15 03/27/17 20:00 Glucagon (Glucagon Inj) 1 mg UNSCH PRN OTHER HYPOGLYCEMIA-SEE COMMENTS 03/11/17 17:15 Enalaprilat (Vasotec Inj) 1.25 mg Q6H PRN IV PUSH SBP>160, DBP>90 03/11/17 17:15 04/01/17 05:08 Loperamide HCl (Imodium) 2 mg Q4H PRN PO Diarrhea 03/14/17 10:00 03/15/17 15:08 Multivitamin Hematinic Therapeutic (Theragran Hematinic) 1 tab DAILY PO 03/15/17 09:00 04/02/17 09:15 Ascorbic Acid (Vitamin C) 1,000 mg DAILY PO 03/15/17 09:00 04/02/17 09:14 Patient Own Medication (Linagliptin (Tradjenta) 5 MG DAILY PO 03/17/17 10:00 Future Hold Oxacillin Sodium 2 gm/Sodium Chloride 100 ml @ 200 mls/hr Q4H IV 03/18/17 17:00 04/02/17 09:16 Spironolactone (Aldactone) 25 mg DAILY PO 03/19/17 15:00 Future Hold 03/27/17 08:58 Morphine Sulfate (Oramorph Sr) 45 mg Q12HR PO 03/22/17 21:00 04/02/17 09:15 Gabapentin (Neurontin) 300 mg TID PO 03/24/17 09:00 04/02/17 09:14 Doxycycline Hyclate (Vibratab) 100 mg Q12H PO 03/24/17 12:00 04/01/17 23:00 IV Flush (NS Flush) 2 ml UNSCH PRN IVF FLUSH AFTER USING IV ACCESS 03/25/17 15:45 IV Flush (NS Flush) 2 ml BID IVF 03/25/17 21:00 04/01/17 21:00 Docusate Sodium (Colace) 100 mg BID PO 03/25/17 21:00 04/02/17 09:13 Pantoprazole Sodium (Protonix) 40 mg DAILY PO 03/26/17 09:00 04/02/17 09:14 Acetaminophen/ Hydrocodone Bitart ([place] 10-325 Mg) 1 tab Q4H PRN PO PAIN SCALE 1 TO 5 03/25/17 15:45 Acetaminophen/ Hydrocodone Bitart ([place] 10-325 Mg) 2 tab Q4H PRN PO PAIN SCALE 6 TO 10 03/25/17 15:45 04/02/17 09:15 Acetaminophen (Tylenol) 650 mg Q4H PRN PO TEMPERATURE > 101.5 F 03/25/17 15:45 Tenofovir Disoproxil Fumarate (Viread) 300 mg DAILY PO 03/28/17 09:00 04/02/17 09:16 Heparin Sodium (Porcine) (Heparin Inj) 5,000 units Q8HR SQ 03/28/17 21:00 04/02/17 05:35 Tamsulosin HCl (Flomax) 0.4 mg Q12HR PO 03/29/17 10:30 04/02/17 09:14 Insulin Detemir (Levemir Inj) 10 units DAILY SQ 03/30/17 09:00 04/02/17 09:14 Insulin Aspart (NovoLOG SUPPLEMENTAL SCALE) 1 ACHS SLIDING SCALE SQ 03/30/17 17:00 04/01/17 21:51 Famotidine (Pepcid) 20 mg BID PO 03/31/17 21:00 04/02/17 09:15 Hydromorphone HCl (Dilaudid Pf Inj) 0.5 mg Q6HR PRN IV PUSH BREAKTHROUGH PAIN 04/01/17 13:45 04/03/17 13:44 04/02/17 06:19 Magnesium Hydroxide (Milk Of Magnesia Liq) 30 ml Q12H PRN PO Mild constipation 04/01/17 14:15 Sennosides (Senokot) 17.2 mg Q12H PRN PO Moderate constipation 04/01/17 14:15 Bisacodyl (Dulcolax Supp) 10 mg DAILY PRN RECTAL SEVERE CONSITIPATION 04/01/17 14:15 (Shanta Jones) Medical Decision Making MDM Remarks 67 y/o male with osteomyelitis, discitis, large epidural abscess with severe canal stenosis/cord compression at L1-2, lower extremity weakness, intractable lumbar pain s/p L1-2 laminectomy with evacuation of epidural abscess and placement of wound vac 03/25/17 (hSanta Jones) Plan Plan Remarks cont wound vac therapy with SHAMIKA dressing - wound care nursing for dressing changes. dw Dr. Fitzgerald regarding wound care findings yesterday, dw patient regarding our advise of strict use of custom moded TLSO brace when out of bed, as the quick draw does not give sufficient support per Dr. Fitzgerald, he may only use custom molded TLSO dw nursing - pt will need to sign refusal of treatment with custom TLSO discussed with PT cont antibiotics per ID mgt, ok to dc rehab from [facility] standpoint, f/u in office outpatient (Shanta Jones) Attending Statement The exam, history, and the medical decision-making described in the above note were completed with the assistance of the mid-level provider. I reviewed and agree with the findings presented. I attest that I had a [id number] encounter with the patient on the same day, and personally performed and documented my assessment and findings in the medical record. (Paras Fitzgerald MD) Shanta Jones Apr 02, 2017 11:08 Paras Fitzgerald MD Apr 05, 2017 14:35
--- NOTE | 2017-04-02 12:49 | HHI.PR ---
Subjective Remarks Follow-up for discitis, MSSA bacteremia, epidural abscess. Patient is currently doing well. Denies any chest pain, shortness of breath, fever or chills. He is moving in bed pretty well. Neurosurgery cleared for discharge. Objective Vitals Vital Signs Date Time Temp Pulse Resp B/P (MAP) Pulse Ox O2 Delivery O2 Flow Rate FiO2 04/02/17 12:14 98.2 92 20 162/87 (112) 100 04/02/17 09:42 86 04/02/17 08:16 98.2 86 19 162/82 (108) 100 04/02/17 04:00 98.4 85 18 160/86 (110) 98 04/02/17 01:22 98.9 90 19 160/83 (108) 100 04/02/17 00:00 98.0 72 18 152/78 (102) 99 04/01/17 20:00 98.1 76 18 160/84 (109) 100 04/01/17 16:40 98.4 96 20 153/87 (109) 100 I/O 04/01/17 04/01/17 04/01/17 04/02/17 04/02/17 04/02/17 07:00 15:00 23:00 07:00 15:00 23:00 Intake Total 600 ml 300 ml Output Total 600 ml 1150 ml Balance -600 ml -550 ml 300 ml Intake Oral 600 ml IV Total 300 ml Output Urine Total 600 ml 1150 ml # Voids 2 2 Result Diagram: 04/01/17 0620 04/01/17 0620 Imaging Last Impressions Renal Ultrasound 03/28/17 0000 Signed Impressions: Service Date/Time: Tuesday, March 28, 2017 18:53 - CONCLUSION: 1. Bilateral hydronephrosis and hydroureter more pronounced on the left. 2. 300 mL postvoid residual. Rey Monreal Jr., MD Chest X-Ray 03/26/17 0000 Signed Impressions: Service Date/Time: Sunday, March 26, 2017 11:15 - CONCLUSION: Minimal bibasilar parenchymal changes. Parker Way MD FACR Lumbar Spine X-Ray 03/25/17 0000 Signed Impressions: Service Date/Time: Saturday, March 25, 2017 13:17 - CONCLUSION: Instruments overlie the posterior elements at the L1-L2 level. Vishal Oneal MD Lumbar Spine MRI 03/25/17 0000 Signed Impressions: Service Date/Time: Saturday, March 25, 2017 08:45 - CONCLUSION: Discitis at L1-2 with adjacent osteomyelitis. Significant paraspinal and epidural abscess and bilateral psoas abscesses. Moderate degenerative spondylosis throughout the remainder of the lumbar spine with fairly severe canal stenosis at L4-5 and less prominent changes at other levels as described Vishal Osorio MD Lower Extremity Ultrasound 03/24/17 0000 Signed Impressions: Service Date/Time: Friday, March 24, 2017 12:42 - CONCLUSION: Negative for deep venous thrombosis. Parker Way MD FACR Scrotum Ultrasound 03/23/17 0000 Signed Impressions: Service Date/Time: Thursday, March 23, 2017 12:04 - CONCLUSION: Bilateral testicular atrophy. No torsion, inflammatory changes or other acute abnormality seen. Vishal Cevallos MD Abdomen Ultrasound 03/21/17 0000 Signed Impressions: Service Date/Time: Tuesday, March 21, 2017 15:29 - CONCLUSION: Only trace ascites which is inadequate for paracentesis. Michael Philip MD Abdomen/Pelvis CT 03/13/17 0000 Signed Impressions: Service Date/Time: February 15:19 - CONCLUSION: 1. Moderate-sized bilateral effusions with consolidative changes. 2. Moderate hepatosplenomegaly. 3. Ascites diffusely throughout the abdomen. 4. Compared to previous the effusions have enlarged. The ascites is new. The liver and spleen are stable in size. Natalio Way MD Objective Remarks GENERAL: Alert, oriented 3, NAD. SKIN: Warm and dry. HEAD: Normocephalic. EYES: No scleral icterus. No injection or drainage. NECK: Supple, trachea midline. No JVD or lymphadenopathy. CARDIOVASCULAR: Regular rate and rhythm without murmurs, gallops, or rubs. RESPIRATORY: Breath sounds equal bilaterally. No accessory muscle use. GASTROINTESTINAL: Abdomen soft, non-tender, nondistended. MUSCULOSKELETAL: No cyanosis, or edema. BACK: Nontender without obvious deformity. No CVA tenderness. Procedures L1-2 laminectomy, evacuation of lumbar spinal epidural abscess 03/25 A/P Problem List: (1) Staphylococcus aureus bacteremia with sepsis ICD Code: A41.01 - Sepsis due to Methicillin susceptible Staphylococcus aureus Status: Acute (2) Liver cirrhosis ICD Code: K74.60 - Unspecified cirrhosis of liver (3) Uncontrolled hypertension ICD Code: I10 - Essential (primary) hypertension (4) COPD (chronic obstructive pulmonary disease) ICD Code: J44.9 - Chronic obstructive pulmonary disease, unspecified (5) Diabetes mellitus with hyperglycemia ICD Code: E11.65 - Type 2 diabetes mellitus with hyperglycemia Status: Chronic (6) Pleural effusion ICD Code: J90 - Pleural effusion, not elsewhere classified (7) Hyponatremia ICD Code: E87.1 - Hypo-osmolality and hyponatremia (8) Ascites of liver ICD Code: R18.8 - Other ascites Status: Chronic (9) Anemia ICD Code: D64.9 - Anemia, unspecified Status: Chronic (10) Anasarca ICD Code: R60.1 - Generalized edema Status: Acute (11) Abdominal pain ICD Code: R10.9 - Unspecified abdominal pain Status: Acute (12) Testicular pain, left ICD Code: N50.812 - Left testicular pain Status: Acute (13) UTI (urinary tract infection) ICD Code: N39.0 - Urinary tract infection, site not specified Status: Acute (14) Back pain ICD Code: M54.9 - Dorsalgia, unspecified Status: Acute (15) Low grade fever ICD Code: R50.9 - Fever, unspecified Status: Acute (16) Bilateral leg edema ICD Code: R60.0 - Localized edema Status: Acute (17) Discitis of lumbar region ICD Code: M46.46 - Discitis, unspecified, lumbar region Status: Acute (18) Epidural abscess ICD Code: G06.2 - Extradural and subdural abscess, unspecified Status: Acute (19) Osteomyelitis of vertebra of lumbosacral region ICD Code: M46.27 - Osteomyelitis of vertebra, lumbosacral region Status: Acute (20) Psoas abscess ICD Code: K68.12 - Psoas muscle abscess Status: Acute Assessment and Plan Discitis/ osteomyelitis/ epidural abscess/ bilateral psoas abscess - Lumbar spine MRI on 03/25/2017 shows discitis, osteomyelitis, epidural abscess , and bilateral psoas abscess. - S/p L1-2 laminectomy, evacuation of lumbar spinal epidural abscess 03/25. - Neurosurgery is okay with discharge. - antibiotics per ID. Currently on oxacillin until 05/06/2017 and doxycycline until 04/07/2017. - Discussed with case management regarding evaluation by [facility]. Patient did be good candidate for CIR. - We'll also discuss with ID regarding a simpler abx regimen If possible. - Will wean off IV dilaudid by 04/03/2017. Staphylococcus aureus bacteremia with sepsis - Source likely the urine since urine culture is growing MSSA. - The patient has been started on fluconazole for yeast urine on 03/21. D/c per ID. - The patient was started on oral doxycycline for left testicular pain and suspected epididymitis. Acute renal injury - FENa calculated at 3%. Renal US showed: Bilateral hydronephrosis and hydroureter, more pronounced on the left. - Urology consult appreciated. Creatinine improving. 1.73 --> 1.15 - Tamsulosin was started by urology. - Continue to hold diuretics and lisinopril. - s/p IVFs. - avoid nephrotoxic agents. Left testicular pain - Testicular ultrasound showed bilateral testicular atrophy. No distortion, inflammatory changes or other acute abnormality seen. - GC/chlamydia PCR negative. - started the patient on oral doxycycline 100 mg by mouth twice a day for 7 days to treat the patient empirically for epididymitis. Liver cirrhosis/ Hepatitis B - Abdomen and pelvis CT performed on 03/13/17 show moderate-sized bilateral pleural effusions with consolidative changes. Moderate hepatosplenomegaly. Ascites diffusely throughout the abdomen which compared to a previous CT abdomen and pelvis obtained on 03/10/17 was increased. There is a report of more prominent portal vein and interval enlargement of the spleen which measures 17.7 cm, findings consistent with increasing portal hypertension. Ultrasound-guided abdominal paracentesis was ordered, however there is not enough fluid for the procedure to be done. - holding diuresis in the setting of ARF. - GI following. Started on tenofovir for treatment of hepatitis B. - pain control as needed. - d/c IV albumin. COPD (chronic obstructive pulmonary disease - DuoNeb PRN. Diabetes mellitus - Continue Levemir 10 units daily. - Place on low NovoLog insulin scale. Continue to monitor Accu-Cheks. - Blood glucose well controlled. Goal 140-180. Celiac artery stenosis/ Abdominal pain 03/21 ultrasound of the abdomen SMA/celiac Doppler showed a greater than 70% stenosis in the celiac artery. Less than 50% stenosis in the mesenteric artery. Vascular surgery recommendations appreciated. Discussed the case with Dr. Gurrola who states that abdominal pain is not coming from this finding. - Recommended outpatient treatment with pain control inspector. Acute blood loss anemia - Iron low, ferritin normal. TIBC and percent saturation not done. Ordered. Anemic following surgery. 2 units prbc ordered 03/26. Hemoglobin 7 03/30, s/p transfusion of an additional unit. Improved. - follow CBC and transfuse as needed. Full code. Heparin SQ. Problem Qualifiers (1) COPD (chronic obstructive pulmonary disease): Qualified Codes: J42 - Unspecified chronic bronchitis (2) Diabetes mellitus with hyperglycemia: Qualified Codes: E11.65 - Type 2 diabetes mellitus with hyperglycemia; Z79.4 - roasterman (current) use of insulin (3) Anemia: Qualified Codes: D64.9 - Anemia, unspecified Padma Drew DO Apr 02, 2017 12:49 pm
--- NOTE | 2017-04-02 13:00 | HHI.IDPN ---
Note Infectious Disease Note Now continues to have back pain. says it is controlled with pain meds. Afebrile. Blood culture 03/25, 03/21 and 03/17 - no growth. Prior blood culture on 03/10 - staph aureus and urine culture had staph aureus. Patient is status post evacuation of lumbar spine epidural abscess/L1L2 laminectomy. 2D ECHO has no vegetations. The patient underwent right colon resection and also small bowel resection for ischemic cecum and fascia and partial ischemia of the distal terminal ileum on 01/29/2017. After the surgery and he also had report of Clostridium perfringens at the margins of the surgical tissue on the pathology specimen. PAST MEDICAL HISTORY: 1. Esophageal varices. 2. Hepatitis C. 3. History of cirrhosis. 4. Recent bowel resection. 5. Diabetes mellitus. 6. History of laparoscopic cholecystectomy. 7. History of back surgery. 8. Neuropathy. 9. Vasectomy. 10. History of bladder cancer. 11. History of bilateral knee surgery. 12. History of banding of esophageal varices. ALLERGIES: 1. PENTAZOCINE. 2. CODEINE. 3. KETORFANOL. 4. IV DYE. 5. IODINATED CONTRAST. ANTIBIOTICS: Oxacillin. fluconazole. OBJECTIVE: Vital Signs Date Time Temp Pulse Resp B/P (MAP) Pulse Ox O2 Delivery O2 Flow Rate FiO2 03/31/17 14:00 18 03/31/17 11:54 97.6 89 20 152/87 (108) 100 03/31/17 09:46 18 03/31/17 08:04 98.6 87 19 150/86 (107) 99 03/31/17 06:20 98.6 90 20 130/75 (93) 97 03/31/17 06:00 18 03/31/17 05:34 18 03/31/17 02:22 18 03/31/17 01:36 98.7 96 20 122/74 (90) 99 03/30/17 23:45 83 03/30/17 21:55 18 03/30/17 21:55 18 03/30/17 21:51 18 03/30/17 19:35 98.9 93 16 133/72 97 03/30/17 19:20 98.6 94 18 137/77 96 03/30/17 18:30 96 03/30/17 16:00 97.7 82 18 101/62 (75) 96 Laboratory Tests Test 03/30/17 05:29 03/31/17 06:20 White Blood Count 5.9 TH/MM3 5.6 TH/MM3 Red Blood Count 2.60 MIL/MM3 3.03 MIL/MM3 Hemoglobin 7.0 GM/DL 8.1 GM/DL Hematocrit 21.3 % 24.5 % Mean Corpuscular Volume 82.0 FL 80.7 FL Mean Corpuscular Hemoglobin 26.9 PG 26.6 PG Mean Corpuscular Hemoglobin Concent 32.8 % 33.0 % Red Cell Distribution Width 17.9 % 19.4 % Platelet Count 189 TH/MM3 184 TH/MM3 Mean Platelet Volume 8.2 FL 8.3 FL Laboratory Tests Test 03/30/17 05:29 03/31/17 06:20 Blood Urea Nitrogen 35 MG/DL 33 MG/DL Creatinine 1.42 MG/DL 1.29 MG/DL Random Glucose 143 MG/DL 228 MG/DL Calcium Level 8.3 MG/DL 8.2 MG/DL Magnesium Level 2.1 MG/DL 1.9 MG/DL Sodium Level 139 MEQ/L 138 MEQ/L Potassium Level 4.1 MEQ/L 4.0 MEQ/L Chloride Level 103 MEQ/L 104 MEQ/L Carbon Dioxide Level 26.6 MEQ/L 25.2 MEQ/L Anion Gap 9 MEQ/L 9 MEQ/L Estimat Glomerular Filtration Rate 50 ML/MIN 56 ML/MIN IMAGING: Chest X-Ray 03/26/17 0000 Signed Impressions: Service Date/Time: Sunday, March 26, 2017 11:15 - CONCLUSION: Minimal bibasilar parenchymal changes. Parker Way MD FACR Lumbar Spine MRI 03/25/17 0000 Signed Impressions: Service Date/Time: Saturday, March 25, 2017 08:45 - CONCLUSION: Discitis at L1-2 with adjacent osteomyelitis. Significant paraspinal and epidural abscess and bilateral psoas abscesses. Moderate degenerative spondylosis throughout the remainder of the lumbar spine with fairly severe canal stenosis at L4-5 and less prominent changes at other levels as described Vishal Osorio MD Lower Extremity Ultrasound 03/24/17 0000 Signed Impressions: Service Date/Time: Friday, March 24, 2017 12:42 - CONCLUSION: Negative for deep venous thrombosis. Parker Way MD FACR Abdomen Ultrasound 03/20/17 0000 Signed Impressions: Service Date/Time: March 18:32 - CONCLUSION: 1. 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 2. Less than 50%% stenosis in the superior mesenteric artery. Jase Estes MD Abdomen/Pelvis CT 03/13/17 0000 Signed Impressions: Service Date/Time: February 15:19 - CONCLUSION: 1. Moderate-sized bilateral effusions with consolidative changes. 2. Moderate hepatosplenomegaly. 3. Ascites diffusely throughout the abdomen. 4. Compared to previous the effusions have enlarged. The ascites is new. The liver and spleen are stable in size. Natalio Way MD Chest X-Ray 03/10/17 0000 Signed Impressions: Service Date/Time: Friday, March 10, 2017 12:09 - CONCLUSION: No acute disease. There is no evidence of pneumonia. Jase Estes MD PHYSICAL EXAMINATION: GENERAL: No acute distress. Awake and alert and oriented. HEENT: No icterus. Oropharynx moist mucosa without lesions. NECK: Supple. LUNGS: Clear breath sounds. HEART: Regular S1-S2 without murmurs, rubs or gallops. ABDOMEN: Soft, Positive bowel sounds. EXTREMITIES: No clubbing, cyanosis or edema. SKIN: No rash. NEUROLOGIC: Non focal. PSYCHIATRIC: Calm and cooperative. IMPRESSION: 1. Bacteremia due to staph aureus. Persistent positive blood cultures. - Discitis and osteomyelitis at L1- L2 and epidural, paraspinal and psoas abscess bilateral. Staph aureus. - post evacuation of lumbar spine epidural abscess/L1L2 laminectomy. 2. Urinary tract infection due to staph aureus. 3. Abdominal pain of questionable etiology. Most likely had referred pain from psoas abscess, discitis. 4. Fever low grade. Improved. 5. Probable epididymitis/orchitis. RECOMMENDATIONS: 1. Will change Oxacillin to Ancef. 6 weeks treatment until May 06, 2017 for discitis. 2. Continue Doxycycline until 04/07 for epididimitis/orchitis. 3. PIC line for IV antibiotics. (Ordered). 4. Obtain sed rate to monitor weekly during treatment. ID outpatient follow up on discharge. Can arrange for outpatient treatment from n my standpoint. Florentino Burnette MD Apr 02, 2017 13:00
[2017-04-02] MEDS: ceFAZolin 2 GM PREMIX 50 ML IV SCH ×2 (14:10→21:24)
[2017-04-02] MEDS: DOXYCYCLINE HYCLATE 100 MG TAB PO SCH ×2 (14:20→23:01)
[2017-04-02] MEDS: HYDROmorphone HCL 4 MG TAB PO PRN ×2 (17:05→21:23)
--- NOTE | 2017-04-02 18:40 | RADRPT ---
EXAM DATE/TIME: 04/02/2017 17:22 [facility] COMPARISON: CHEST SINGLE AP, September 08, 2015, 14:25. CHEST SINGLE AP, January 29, 2017, 5:52. CHEST SINGLE AP, March 26, 2017, 11:15. INDICATIONS : Right PICC line placement. MEDICAL HISTORY : Hypertension. Hypercholesterolemia. Chronic obstructive pulmonary disease. SURGICAL HISTORY : Appendectomy. Cholecystectomy. Tympanostromy tube. Back surgery. Bowel ENCOUNTER: Initial ACUITY: 1 day PAIN SCORE: 2/10 LOCATION: Right upper chest FINDINGS: There is a PICC line in place from the right arm with the tip overlying the upper right atrium. The h eart size is enlarged. There is widening of the superior mediastinum likely secondary to an enlarged vessels. There is hazy density at the left base. The right lung is grossly clear. A significant effus ion is not seen. CONCLUSION: 1. PICC line in good position. 2. Cardiomegaly with suspected widening of the thoracic aorta. The appearance the superior mediastinu m does appear more prominent on the current exam than on the most recent exams. This area could be fu rther evaluated with a PA chest x-ray or CT examination the chest. 3. Left lower lobe atelectasis or consolidation. Vishal Brewer MD on April 02, 2017 at 18:35 Board Certified Radiologist. This report was verified electronically.
[2017-04-02] MEDS: ENALAPRILAT 1.25 MG/ML VIAL IV PUSH PRN (21:23)
--- NOTE | 2017-04-02 21:33 | RADRPT ---
EXAM DATE/TIME: 04/02/2017 20:40 [facility] COMPARISON: CHEST SINGLE AP, March 26, 2017, 11:15. CHEST SINGLE AP, April 02, 2017, 17:22. INDICATIONS : Checking size of mediastinum. MEDICAL HISTORY : Hypertension. Hypercholesterolemia. Chronic obstructive pulmonary disease SURGICAL HISTORY : Appendectomy. Cholecystectomy. Tympanostromy tube. Back surgery ENCOUNTER: Initial ACUITY: 1 day PAIN SCORE: 8/10 LOCATION: Bilateral upper chest FINDINGS: The mediastinum appears normal in size. The previous seen prominence may be a projectional from the A P technique or represent something on the patient. The heart size is normal. The lungs are grossly c lear. Mild bilateral effusions are seen on the lateral view. Old left healed rib fractures are seen. There is a PICC line in place from the right arm with the tip overlying the right atrium. CONCLUSION: The mediastinum is normal in size. Mild bilateral pleural effusions are seen on the lateral view. Vishal Brewer MD on April 02, 2017 at 21:30 Board Certified Radiologist. This report was verified electronically.
[2017-04-03] VITALS (7 sets, daily range): BP systolic 160–188; BP diastolic 81–96; PULSE 96–103; RESP 16–19; TEMP 98.3–98.8; O2SAT 98–100
[2017-04-03] MEDS ORDERED: HYDROmorphone HCL PF 0.5 MG/0.5 ML SYRINGE IV PUSH ONE (01:30)
[2017-04-03] MEDS: HYDROmorphone HCL 4 MG TAB PO PRN ×6 (01:30→20:41)
[2017-04-03] MEDS: ENALAPRILAT 1.25 MG/ML VIAL IV PUSH PRN (03:36)
[2017-04-03] MEDS ORDERED: cloNIDine HCL 0.1 MG TAB PO ONE (04:45)
[2017-04-03] MEDS: HEPARIN SODIUM - SQ 10,000 UNITS/ML VIAL SQ SCH ×3 (05:02→22:06)
[2017-04-03] MEDS: ceFAZolin 2 GM PREMIX 50 ML IV SCH ×3 (05:02→22:00)
[2017-04-03] MEDS: INSULIN ASPART SUPPLEMENTAL SCALE SQ SCH ×4 (08:00→22:00)
[2017-04-03] MEDS: INSULIN DETEMIR 100 UNITS/ML VIAL SQ SCH (09:00)
[2017-04-03] MEDS: SODIUM CHLORIDE 0.9% FLUSH 5 ML FLUSH IVF SCH ×2 (09:00→20:42)
[2017-04-03] MEDS: BUDESONIDE-FORMOTEROL 160/4.5 MCG INHALER INH SCH ×2 (09:00→20:42)
[2017-04-03] MEDS: PANTOPRAZOLE SOD 40 MG DELAYED RELEASE TAB PO SCH (09:08)
[2017-04-03] MEDS: MORPHINE SULFATE 15 MG CONTROLLED RELEASE TAB PO SCH ×2 (09:08→20:42)
[2017-04-03] MEDS: MULTIVITAMIN HEMATINIC THERAPEUTIC TAB PO SCH (09:08)
[2017-04-03] MEDS: DOCUSATE SODIUM 100 MG CAP PO SCH ×2 (09:09→20:42)
[2017-04-03] MEDS: TAMSULOSIN HCL 0.4 MG CAP PO SCH ×2 (09:09→20:42)
[2017-04-03] MEDS: FAMOTIDINE 20 MG TAB PO SCH ×2 (09:09→20:41)
[2017-04-03] MEDS: ASCORBIC ACID 500 MG TAB PO SCH (09:09)
[2017-04-03] MEDS: TENOFOVIR DISOPROXIL FUMARATE 300 MG TAB PO SCH (09:10)
[2017-04-03] MEDS: GABAPENTIN 300 MG CAP PO SCH ×3 (09:10→16:56)
[2017-04-03] MEDS ORDERED: amLODIPine BESYLATE 5 MG TAB PO SCH (10:45)
[2017-04-03] MEDS: LISINOPRIL 10 MG TAB PO SCH (11:09)
[2017-04-03] MEDS ORDERED: MORP1TAB24 PO (12:15)
[2017-04-03] MEDS ORDERED: CEFA2SOL IV (12:15)
[2017-04-03] MEDS ORDERED: TAMS5CAP PO (12:15)
[2017-04-03] MEDS ORDERED: LEVEMIR SQ (12:15)
[2017-04-03] MEDS ORDERED: DILA4TAB10 PO (12:15)
[2017-04-03] MEDS ORDERED: FAMO20TA2 PO (12:15)
[2017-04-03] MEDS ORDERED: AMLO5 PO (12:15)
[2017-04-03] MEDS ORDERED: DOXY100T PO (12:15)
[2017-04-03] MEDS ORDERED: NEUR300C PO (12:15)
[2017-04-03] MEDS ORDERED: TENO300 PO (12:15)
[2017-04-03] MEDS: DOXYCYCLINE HYCLATE 100 MG TAB PO SCH ×2 (12:51→23:55)
--- NOTE | 2017-04-03 15:22 | HHI.DS ---
Discharge Summary Admission Date Mar 10, 2017 at 1:34 pm Discharge Date: Apr 04, 2017 Admitting Diagnosis sepsis, abdominal pain (1) Staphylococcus aureus bacteremia with sepsis ICD Code: A41.01 - Sepsis due to Methicillin susceptible Staphylococcus aureus Status: Acute (2) Liver cirrhosis ICD Code: K74.60 - Unspecified cirrhosis of liver (3) Uncontrolled hypertension ICD Code: I10 - Essential (primary) hypertension (4) COPD (chronic obstructive pulmonary disease) ICD Code: J44.9 - Chronic obstructive pulmonary disease, unspecified (5) Diabetes mellitus with hyperglycemia ICD Code: E11.65 - Type 2 diabetes mellitus with hyperglycemia Status: Chronic (6) Pleural effusion ICD Code: J90 - Pleural effusion, not elsewhere classified (7) Hyponatremia ICD Code: E87.1 - Hypo-osmolality and hyponatremia (8) Ascites of liver ICD Code: R18.8 - Other ascites Status: Chronic (9) Anemia ICD Code: D64.9 - Anemia, unspecified Status: Chronic (10) Anasarca ICD Code: R60.1 - Generalized edema Status: Acute (11) Abdominal pain ICD Code: R10.9 - Unspecified abdominal pain Status: Acute (12) Testicular pain, left ICD Code: N50.812 - Left testicular pain Status: Acute (13) UTI (urinary tract infection) ICD Code: N39.0 - Urinary tract infection, site not specified Status: Acute (14) Back pain ICD Code: M54.9 - Dorsalgia, unspecified Status: Acute (15) Low grade fever ICD Code: R50.9 - Fever, unspecified Status: Acute (16) Bilateral leg edema ICD Code: R60.0 - Localized edema Status: Acute (17) Discitis of lumbar region ICD Code: M46.46 - Discitis, unspecified, lumbar region Status: Acute (18) Epidural abscess ICD Code: G06.2 - Extradural and subdural abscess, unspecified Status: Acute (19) Osteomyelitis of vertebra of lumbosacral region ICD Code: M46.27 - Osteomyelitis of vertebra, lumbosacral region Status: Acute (20) Psoas abscess ICD Code: K68.12 - Psoas muscle abscess Status: Acute Procedures L1-2 laminectomy, evacuation of lumbar spinal epidural abscess 03/25 Brief History - From Admission Mr. Parks is a 66-year-old male. He was admitted secondary to right lower quadrant pain with sepsis. She has a history of a bowel resection approximately 1.5 months ago. Suspicion of bacterial enteritis or colitis is present in place since his recent surgical site at risk so close monitoring and treatments are initiated. Imaging shows no overt signs of abscess. His surgeon has been consulted. Nausea and vomiting was present at time of admit and he is responding well to Zofran thus far. No evidence of Dilaudid withdrawal being a component of this as he has not had improvement in symptoms after resuming Dilaudid for pain control. CBC/BMP: 04/01/17 0620 04/01/17 0620 Significant Findings Laboratory Tests Test 04/01/17 06:20 04/02/17 15:58 Red Blood Count 3.35 MIL/MM3 (4.50-5.90) Hemoglobin 8.9 GM/DL (13.0-17.0) Hematocrit 27.2 % (39.0-51.0) Mean Corpuscular Hemoglobin 26.5 PG (27.0-34.0) Red Cell Distribution Width 18.9 % (11.6-17.2) Blood Urea Nitrogen 26 MG/DL (7-18) Random Glucose 139 MG/DL (74-106) Albumin 2.8 GM/DL (3.4-5.0) Estimat Glomerular Filtration Rate 64 ML/MIN (>89) Erythrocyte Sedimentation Rate 67 mm/hr (0-20) PE at Discharge GENERAL: Alert, oriented 3, NAD. SKIN: Warm and dry. HEAD: Normocephalic. EYES: No scleral icterus. No injection or drainage. NECK: Supple, trachea midline. No JVD or lymphadenopathy. CARDIOVASCULAR: Regular rate and rhythm without murmurs, gallops, or rubs. RESPIRATORY: Breath sounds equal bilaterally. No accessory muscle use. GASTROINTESTINAL: Abdomen soft, non-tender, nondistended. MUSCULOSKELETAL: No cyanosis, or edema. BACK: Nontender without obvious deformity. No CVA tenderness. Pt update on day of discharge Patient is doing well. No acute concerns. No fever, chills. Hospital Course Discitis/ osteomyelitis/ epidural abscess/ bilateral psoas abscess - Lumbar spine MRI on 03/25/2017 shows discitis, osteomyelitis, epidural abscess , and bilateral psoas abscess. - S/p L1-2 laminectomy, evacuation of lumbar spinal epidural abscess 03/25. - Neurosurgery is okay with discharge. - antibiotics per ID. Cefazolin 2g Q8hrs stop date 05/06/2017 and doxycycline until 04/07/2017. - Anticipating discharge to [facility] today. Staphylococcus aureus bacteremia with sepsis - Source likely the urine since urine culture is growing MSSA. - The patient has been started on fluconazole for yeast urine on 03/21. D/c per ID. - The patient was started on oral doxycycline for left testicular pain and suspected epididymitis. Acute renal injury - FENa calculated at 3%. Renal US showed: Bilateral hydronephrosis and hydroureter, more pronounced on the left. - Urology consult appreciated. Creatinine improving. 1.73 --> 1.15 - Tamsulosin was started by urology. - Continue to hold diuretics and lisinopril. - s/p IVFs. - avoid nephrotoxic agents. Left testicular pain - Testicular ultrasound showed bilateral testicular atrophy. No distortion, inflammatory changes or other acute abnormality seen. - GC/chlamydia PCR negative. - started the patient on oral doxycycline 100 mg by mouth twice a day for 7 days to treat the patient empirically for epididymitis. Liver cirrhosis/ Hepatitis B - Abdomen and pelvis CT performed on 03/13/17 show moderate-sized bilateral pleural effusions with consolidative changes. Moderate hepatosplenomegaly. Ascites diffusely throughout the abdomen which compared to a previous CT abdomen and pelvis obtained on 03/10/17 was increased. There is a report of more prominent portal vein and interval enlargement of the spleen which measures 17.7 cm, findings consistent with increasing portal hypertension. Ultrasound-guided abdominal paracentesis was ordered, however there is not enough fluid for the procedure to be done. - holding diuresis in the setting of ARF. - GI following. Started on tenofovir for treatment of hepatitis B. - pain control as needed. - d/c IV albumin. COPD (chronic obstructive pulmonary disease - DuoNeb PRN. Diabetes mellitus - Continue Levemir 10 units daily. - Place on low NovoLog insulin scale. Continue to monitor Accu-Cheks. - Blood glucose well controlled. Goal 140-180. Celiac artery stenosis/ Abdominal pain 03/21 ultrasound of the abdomen SMA/celiac Doppler showed a greater than 70% stenosis in the celiac artery. Less than 50% stenosis in the mesenteric artery. Vascular surgery recommendations appreciated. Discussed the case with Dr. Gurrola who states that abdominal pain is not coming from this finding. 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 Acute blood loss anemia - Iron low, ferritin normal. TIBC and percent saturation not done. Ordered. Anemic following surgery. 2 units prbc ordered 03/26. Hemoglobin 7 03/30, s/p transfusion of an additional unit. Improved. - follow CBC and transfuse as needed. Full code. Heparin SQ. Pt Condition on Discharge: Good Discharge Disposition: Rehab Inpatient Discharge Time: > 30 minutes Discharge Instructions DIET: Follow Instructions for: Heart Healthy Diet Activities you can perform: Regular-No Restrictions New Medications: Cefazolin Inj (Cefazolin Inj) 2 Gm/50 Ml Bagp 2 GM IV Q8H for Infection for 42 Days, BAG 0 Refills STOP Date 05/06/2017 Amlodipine (Norvasc) 5 Mg Tab 5 MG PO DAILY for Blood Pressure Management, #30 TAB Doxycycline Hyclate (Doxycycline Hyclate) 100 Mg Tab 100 MG PO Q12H for Infection, #8 TAB STOP Date 04/07/2017 Famotidine (Famotidine) 20 Mg Tab 20 MG PO BID for Reflux, #60 TAB Gabapentin (Neurontin) 300 Mg Cap 300 MG PO TID for Pain Management, #90 CAP Hydromorphone (Dilaudid) 4 Mg Tab 4 MG PO Q4H PRN for PAIN SCALE 5 TO 10, #30 TAB Insulin Detemir Inj (Levemir Inj) 1,000 unit/ 10 ML Vial 10 UNITS SQ DAILY for Blood Sugar Management for 30 Days, INJECTION Do not mix with any other Insulin. Morphine ER (Morphine ER) 15 Mg Tab 45 MG PO Q12HR for Pain Management, #60 TAB Tamsulosin (Flomax) 0.4 Mg Cap 0.4 MG PO Q12HR for bph, #60 CAP Tenofovir disoproxil fumarate (Viread) 300 Mg Tab 300 MG PO DAILY for Infection, #30 TAB 10 Refills Continued Medications: Budesonide-Formoterol Inh (Symbicort Inh) 160-4.5 Mcg/Act Aero 1 PUFF INH Q12HR, #1 INHALER 0 Refills Gemfibrozil (Gemfibrozil) 600 Mg Tab 600 MG PO BIDAC, #60 TAB 0 Refills Take 30 minutes prior to breakfast and dinner. Lisinopril (Lisinopril) 10 Mg Tab 10 MG PO DAILY, #30 TAB 0 Refills [place]-3 Fatty Acids (Fish Oil) 1,000 Mg Cap 1 CAP PO BID Discontinued Medications: Albuterol 8.5 GM Inh (Proair Hfa 8.5 GM Inh) 90 Mcg/Act Aer 1 PUFF INH Q4H PRN for SHORTNESS OF BREATH, #1 INHALER 0 Refills 108 mcg/actuation Gabapentin (Gabapentin) 100 Mg Cap 100 MG PO TID, #90 CAP 0 Refills Wxvqbwageat-Urpuxgxivha-Bqd C- (Glucosamine Chondroitin) 1 Tab Tab 1 TAB PO BID Hydromorphone (Dilaudid) 2 Mg Tab 2 MG PO Q6H PRN for PAIN SCALE 1 TO 10, #30 TAB 0 Refills Insulin Aspart Inj (Novolog Inj) 1,000 Unit/10 Ml Vial 2-12 UNITS SQ ACHS for Blood Sugar Management, #10 ML 0 Refills Max dose at bedtime ( ) units; sugars less than 70,(0) units; sugars 150-199,(2) units; sugars 200-249,(4) units; sugars 250-299,(7) units; sugars 300-349,(10) units; sugars greater than 349,(12)units Insulin Detemir Inj (Levemir Inj) 1,000 unit/ 10 ML Vial 30 UNITS SQ HS for Blood Sugar Management, #1 VIAL 0 Refills Please make a follow-up appointment in 3-4 weeks for further Rx renewals. Do not mix with any other Insulin. Linagliptin (Tradjenta) 5 Mg Tab 5 MG PO DAILY for Blood Sugar Management, #30 TAB 3 Refills Pioglitazone (Pioglitazone) 15 Mg Tab 15 MG PO DAILY for Blood Sugar Management, #30 TAB 3 Refills Padma Drew DO Apr 03, 2017 3:22 pm
--- NOTE | 2017-04-03 21:53 | HHI.PR ---
Subjective Remarks Follow-up for discitis, MSSA bacteremia, epidural abscess. Patient was seen earlier today. No acute concerns. Denies any chest pain, SOB, fever, chills. Objective Vitals Vital Signs Date Time Temp Pulse Resp B/P (MAP) Pulse Ox O2 Delivery O2 Flow Rate FiO2 04/03/17 17:56 20 04/03/17 17:49 98.3 98 18 160/81 (107) 99 04/03/17 06:28 174/96 (122) 04/03/17 05:56 187/90 (122) 04/03/17 03:34 98.7 96 19 188/93 (124) 100 04/03/17 02:39 178/89 (118) 04/03/17 01:22 98.6 96 16 184/95 (124) 98 04/02/17 22:55 177/91 (119) 04/02/17 21:57 98.3 93 16 174/101 (125) 98 I/O 04/02/17 04/02/17 04/02/17 04/03/17 04/03/17 04/03/17 07:00 15:00 23:00 07:00 15:00 23:00 Intake Total 300 ml 750 ml Output Total 400 ml 200 ml 450 ml 800 ml Balance 300 ml 350 ml -200 ml -450 ml -800 ml Intake Oral 600 ml IV Total 300 ml 150 ml Output Urine Total 400 ml 200 ml 450 ml 800 ml # Voids 2 # Bowel Movements 0 Result Diagram: 04/01/1761904/01/1720 Objective Remarks GENERAL: Alert, oriented 3, NAD. SKIN: Warm and dry. HEAD: Normocephalic. EYES: No scleral icterus. No injection or drainage. NECK: Supple, trachea midline. No JVD or lymphadenopathy. CARDIOVASCULAR: Regular rate and rhythm without murmurs, gallops, or rubs. RESPIRATORY: Breath sounds equal bilaterally. No accessory muscle use. GASTROINTESTINAL: Abdomen soft, non-tender, nondistended. MUSCULOSKELETAL: No cyanosis, or edema. BACK: Nontender without obvious deformity. No CVA tenderness. Procedures L1-2 laminectomy, evacuation of lumbar spinal epidural abscess 03/25 A/P Problem List: (1) Staphylococcus aureus bacteremia with sepsis ICD Code: A41.01 - Sepsis due to Methicillin susceptible Staphylococcus aureus Status: Acute (2) Liver cirrhosis ICD Code: K74.60 - Unspecified cirrhosis of liver (3) Uncontrolled hypertension ICD Code: I10 - Essential (primary) hypertension (4) COPD (chronic obstructive pulmonary disease) ICD Code: J44.9 - Chronic obstructive pulmonary disease, unspecified (5) Diabetes mellitus with hyperglycemia ICD Code: E11.65 - Type 2 diabetes mellitus with hyperglycemia Status: Chronic (6) Pleural effusion ICD Code: J90 - Pleural effusion, not elsewhere classified (7) Hyponatremia ICD Code: E87.1 - Hypo-osmolality and hyponatremia (8) Ascites of liver ICD Code: R18.8 - Other ascites Status: Chronic (9) Anemia ICD Code: D64.9 - Anemia, unspecified Status: Chronic (10) Anasarca ICD Code: R60.1 - Generalized edema Status: Acute (11) Abdominal pain ICD Code: R10.9 - Unspecified abdominal pain Status: Acute (12) Testicular pain, left ICD Code: N50.812 - Left testicular pain Status: Acute (13) UTI (urinary tract infection) ICD Code: N39.0 - Urinary tract infection, site not specified Status: Acute (14) Back pain ICD Code: M54.9 - Dorsalgia, unspecified Status: Acute (15) Low grade fever ICD Code: R50.9 - Fever, unspecified Status: Acute (16) Bilateral leg edema ICD Code: R60.0 - Localized edema Status: Acute (17) Discitis of lumbar region ICD Code: M46.46 - Discitis, unspecified, lumbar region Status: Acute (18) Epidural abscess ICD Code: G06.2 - Extradural and subdural abscess, unspecified Status: Acute (19) Osteomyelitis of vertebra of lumbosacral region ICD Code: M46.27 - Osteomyelitis of vertebra, lumbosacral region Status: Acute (20) Psoas abscess ICD Code: K68.12 - Psoas muscle abscess Status: Acute Assessment and Plan Discitis/ osteomyelitis/ epidural abscess/ bilateral psoas abscess - Lumbar spine MRI on 03/25/2017 shows discitis, osteomyelitis, epidural abscess , and bilateral psoas abscess. - S/p L1-2 laminectomy, evacuation of lumbar spinal epidural abscess 03/25. - Neurosurgery is okay with discharge. - antibiotics per ID. Cefazolin 2g Q8hrs stop date 05/06/2017 and doxycycline until 04/07/2017. - Anticipating discharge to [facility]. Staphylococcus aureus bacteremia with sepsis - Source likely the urine since urine culture is growing MSSA. - The patient has been started on fluconazole for yeast urine on 03/21. D/c per ID. - The patient was started on oral doxycycline for left testicular pain and suspected epididymitis. Acute renal injury - FENa calculated at 3%. Renal US showed: Bilateral hydronephrosis and hydroureter, more pronounced on the left. - Urology consult appreciated. Creatinine improving. 1.73 --> 1.15 - Tamsulosin was started by urology. - Continue to hold diuretics and lisinopril. - s/p IVFs. - avoid nephrotoxic agents. Left testicular pain - Testicular ultrasound showed bilateral testicular atrophy. No distortion, inflammatory changes or other acute abnormality seen. - GC/chlamydia PCR negative. - started the patient on oral doxycycline 100 mg by mouth twice a day for 7 days to treat the patient empirically for epididymitis. Liver cirrhosis/ Hepatitis B - Abdomen and pelvis CT performed on 03/13/17 show moderate-sized bilateral pleural effusions with consolidative changes. Moderate hepatosplenomegaly. Ascites diffusely throughout the abdomen which compared to a previous CT abdomen and pelvis obtained on 03/10/17 was increased. There is a report of more prominent portal vein and interval enlargement of the spleen which measures 17.7 cm, findings consistent with increasing portal hypertension. Ultrasound-guided abdominal paracentesis was ordered, however there is not enough fluid for the procedure to be done. - holding diuresis in the setting of ARF. - GI following. Started on tenofovir for treatment of hepatitis B. - pain control as needed. - d/c IV albumin. COPD (chronic obstructive pulmonary disease - DuoNeb PRN. Diabetes mellitus - Continue Levemir 10 units daily. - Place on low NovoLog insulin scale. Continue to monitor Accu-Cheks. - Blood glucose well controlled. Goal 140-180. Celiac artery stenosis/ Abdominal pain 03/21 ultrasound of the abdomen SMA/celiac Doppler showed a greater than 70% stenosis in the celiac artery. Less than 50% stenosis in the mesenteric artery. Vascular surgery recommendations appreciated. Discussed the case with Dr. Gurrola who states that abdominal pain is not coming from this finding. - Recommended outpatient treatment with pain control technician. Acute blood loss anemia - Iron low, ferritin normal. TIBC and percent saturation not done. Ordered. Anemic following surgery. 2 units prbc ordered 03/26. Hemoglobin 7 03/30, s/p transfusion of an additional unit. Improved. - follow CBC and transfuse as needed. Full code. Heparin SQ. If arrangements are made, patient can be discharged to [facility] today. Problem Qualifiers (1) COPD (chronic obstructive pulmonary disease): Qualified Codes: J42 - Unspecified chronic bronchitis (2) Diabetes mellitus with hyperglycemia: Qualified Codes: E11.65 - Type 2 diabetes mellitus with hyperglycemia; Z79.4 - FDC (current) use of insulin (3) Anemia: Qualified Codes: D64.9 - Anemia, unspecified Padma Drew DO Apr 03, 2017 21:53
[2017-04-04 00:05] VITALS: BP 169/93; PULSE 97; RESP 18; TEMP 98.7; O2SAT 98
[2017-04-04] MEDS: HYDROmorphone HCL 4 MG TAB PO PRN ×4 (00:42→12:51)
[2017-04-04] MEDS: ENALAPRILAT 1.25 MG/ML VIAL IV PUSH PRN ×2 (04:42→11:40)
[2017-04-04 04:53] VITALS: BP 168/89; PULSE 95; RESP 18; TEMP 98.3; O2SAT 97
[2017-04-04] MEDS: HEPARIN SODIUM - SQ 10,000 UNITS/ML VIAL SQ SCH (06:00)
[2017-04-04] MEDS: ceFAZolin 2 GM PREMIX 50 ML IV SCH (06:00)
[2017-04-04 08:00] VITALS: BP 171/87; PULSE 93; RESP 18; TEMP 98.4; O2SAT 98
[2017-04-04] MEDS: MORPHINE SULFATE 15 MG CONTROLLED RELEASE TAB PO SCH (09:00)
[2017-04-04] MEDS: INSULIN ASPART SUPPLEMENTAL SCALE SQ SCH ×2 (09:00→11:42)
[2017-04-04] MEDS: SODIUM CHLORIDE 0.9% FLUSH 5 ML FLUSH IVF SCH (09:00)
[2017-04-04] MEDS: TAMSULOSIN HCL 0.4 MG CAP PO SCH (09:01)
[2017-04-04] MEDS: INSULIN DETEMIR 100 UNITS/ML VIAL SQ SCH (09:01)
[2017-04-04] MEDS: MULTIVITAMIN HEMATINIC THERAPEUTIC TAB PO SCH (09:01)
[2017-04-04] MEDS: FAMOTIDINE 20 MG TAB PO SCH (09:01)
[2017-04-04] MEDS: TENOFOVIR DISOPROXIL FUMARATE 300 MG TAB PO SCH (09:01)
[2017-04-04] MEDS: LISINOPRIL 10 MG TAB PO SCH (09:02)
[2017-04-04] MEDS: DOCUSATE SODIUM 100 MG CAP PO SCH (09:02)
[2017-04-04] MEDS: GABAPENTIN 300 MG CAP PO SCH ×2 (09:02→11:40)
[2017-04-04] MEDS: ASCORBIC ACID 500 MG TAB PO SCH (09:02)
[2017-04-04] MEDS: PANTOPRAZOLE SOD 40 MG DELAYED RELEASE TAB PO SCH (09:02)
[2017-04-04] MEDS: BUDESONIDE-FORMOTEROL 160/4.5 MCG INHALER INH SCH (09:07)
[2017-04-04] MEDS: DOXYCYCLINE HYCLATE 100 MG TAB PO SCH (11:41)
[2017-04-04 12:00] VITALS: BP 143/70; PULSE 102; RESP 18; TEMP 98.4; O2SAT 100
--- NOTE | 2017-04-04 12:25 | PD.WCN.NOT ---
Neg Pressure Wound Therapy Wound Location Wound Location: Medial lumbar incision Wound Description Wound bed appearance: ~50% white tissue and ~50% pink tissue and scant active sero-sanguinous drainage without odor. Periwound appearance: Other (deflated blood blisters are resolving to periwound slight induration noted to BUTCH drain site and at 12 o'clock to incision ) Settings Suction: Other (80 mm/hg suction continuous low) Intensity: Low Number of pieces: other (No foam was used, one 4x8 inch shamika dressing was used) Additonal Information Patient seen on [address] [place] [address] for SHAMIKA dressing change. Patient was premedicated for pain prior to dressing change. Removed SHAMIKA dressing in place to reveal wound. Cleansed wound with normal saline. Skin prep was then applied to periwound over deflated blood blisters. 4x 8inch Shamika dressing was then placed over wound , with portion of tubing with suction pad placed over draining incision. 2x2 gauze pad was placed over BUTCH drain site at 1 o'clock to periwound. Butch drain site is slightly indurated and noted with wound that measures ~1cm x ~1cm with pink and yellow tissue and minimal sero-sanguinous drainage that is without odor.Window paned dressing with transparent drape strips. Patient tolerated procedure fairly with pain medication.SHAMIKA NPTW functioning properly. Patient positioned for comfort before leaving room with the assistance of Freida VEE [address] [place] [address]. Ostomy Date of Surgery: Mar 25, 2017 [facility] Apr 04, 2017 12:25
== END 2017-04-04 13:27 | DRG 853 ==
LOC: PHED 10:54 → PHEDA 13:34 → N07A 15:57 → N03B 03-25 14:55 → N05B 03-25 19:22
PROVIDERS: ADMIT Hospitalist; ATTEND Hospitalist
PROC: 0ST20ZZ Resection of Lumbar Vertebral Disc, Open Approach (ICD-10-PCS; 2017-03-25)
PROC: 00NY0ZZ Release Lumbar Spinal Cord, Open Approach (ICD-10-PCS; 2017-03-25)
PROC: 0T9B70Z Drainage of Bladder with Drainage Device, Via Natural or Artificial Opening (ICD-10-PCS; 2017-03-25)
PROC: 30233N1 Transfusion of Nonautologous Red Blood Cells into Peripheral Vein, Percutaneous Approach (ICD-10-PCS; 2017-03-25)
PROC: 009 Central Nervous System and Cranial Nerves, Drainage (ICD-10-PCS; principal; 2017-03-25 12:24)
DX: A41.01 Sepsis due to Methicillin susceptible Staphylococcus aureus (principal); G06.1 Intraspinal abscess and granuloma; R65.21 Severe sepsis with septic shock; N17.9 Acute kidney failure, unspecified; K55.1 Chronic vascular disorders of intestine; E46 Unspecified protein-calorie malnutrition; I13.0 Hypertensive heart and chronic kidney disease with heart failure and stage 1 through stage 4 chronic kidney disease, or unspecified chronic kidney disease; I50.30 Unspecified diastolic (congestive) heart failure; K68.12 Psoas muscle abscess; R18.8 Other ascites; E87.1 Hypo-osmolality and hyponatremia; K76.6 Portal hypertension; B19.10 Unspecified viral hepatitis B without hepatic coma; A04.9 Bacterial intestinal infection, unspecified; N39.0 Urinary tract infection, site not specified; K86.1 Other chronic pancreatitis; F11.20 Opioid dependence, uncomplicated; N13.30 Unspecified hydronephrosis; G83.4 Cauda equina syndrome; M46.26 Osteomyelitis of vertebra, lumbar region; D62 Acute posthemorrhagic anemia; J44.9 Chronic obstructive pulmonary disease, unspecified; E87.6 Hypokalemia; R00.0 Tachycardia, unspecified; Z87.442 Personal history of urinary calculi; Z85.51 Personal history of malignant neoplasm of bladder; N18.9 Chronic kidney disease, unspecified; B18.2 Chronic viral hepatitis C; K74.60 Unspecified cirrhosis of liver; E11.65 Type 2 diabetes mellitus with hyperglycemia; E11.22 Type 2 diabetes mellitus with diabetic chronic kidney disease; E11.40 Type 2 diabetes mellitus with diabetic neuropathy, unspecified; Z79.4 Long term (current) use of insulin; Z86.718 Personal history of other venous thrombosis and embolism; F17.210 Nicotine dependence, cigarettes, uncomplicated; Z80.0 Family history of malignant neoplasm of digestive organs; Z84.89 Family history of other specified conditions; Z83.3 Family history of diabetes mellitus; E83.51 Hypocalcemia; Z90.49 Acquired absence of other specified parts of digestive tract; Z68.25 Body mass index [BMI] 25.0-25.9, adult; R11.2 Nausea with vomiting, unspecified; Z85.068 Personal history of other malignant neoplasm of small intestine; Z85.028 Personal history of other malignant neoplasm of stomach; Z83.2 Family history of diseases of the blood and blood-forming organs and certain disorders involving the immune mechanism; F12.90 Cannabis use, unspecified, uncomplicated; R19.7 Diarrhea, unspecified; G89.29 Other chronic pain; Z91.041 Radiographic dye allergy status; N50.0 Atrophy of testis; N45.3 Epididymo-orchitis; Z90.81 Acquired absence of spleen; R16.2 Hepatomegaly with splenomegaly, not elsewhere classified; Z86.010 Personal history of colon polyps; M46.46 Discitis, unspecified, lumbar region; M06.9 Rheumatoid arthritis, unspecified; E78.00 Pure hypercholesterolemia, unspecified
CPT/HCPCS: 36430; 36569; 71010; 71020; 72020; 72158; 74176; 76000; 76705; 76775; 76870; 76937; 80048; 80053; 80076; 81001; 82103; 82105; 82272; 82390; 82570; 82728; 82947; 82948; 83036; 83520; 83540; 83605; 83615; 83690; 83735; 84100; 84155; 84300; 84484; 85014; 85018; 85025; 85027; 85610; 85652; 85730; 86038; 86255; 86403; 86850; 86900; 86901; 86902; 86920; 86922; 87015; 87040; 87070; 87086; 87102; 87106; 87116; 87147; 87176; 87186; 87205; 87206; 87340; 87350; 87491; 87493; 87517; 87522; 87591; 87902; 88304; 88305; 93005; 93306; 93970; 93975; 94150; 96361; 96365; 96375; J1170; A9579; J0330; J0610; J0690; J1100; J1580; J1644; J1650; J1815; J1885; J1940; J2060; J2250; J2270; J2370; J2405; J2543; J2700; J2710; J3010; J3370; J3480; J7030; J7040; J7070; J7120; J7512; L0484; L0627; P9016; P9047

== ENCOUNTER → 2017-04-09 | Outpatient (CLI) | payer MEDICARE, OTHER ==
[~2017-04-09] MED LIST changes: +ACET325T15 PO; -ALBUAER3 INH; +AMLO10 PO; +AMLO5 PO; +Budeson-Formot 160-4.5 Mg Inh INH; +CARA1TAB6 PO; +CEFA2SOL IV; +CLON.1 PO; +COMMODE 3-IN-11 MIS; +CYCL10TA PO; -DIFL200T PO; -DILA2TAB4 PO; +DILA4TAB10 PO; +DOXY100T PO; +ECASA81 PO; +FAMO20TA2 PO; +FERR325T20 PO; -GABA100C4 PO; +GEMF600 PO; +GETGO ROLLING W1 MI1; -GLUCTAB6 PO; +LACTATED RINGER'S 1000 ML IV PRN; +LIDO1ADH4 T-DERMAL; +LIDOCAINE HCL 1% PF 5 ML SYRINGE OTHER ONE; +MEDR4TAB PO; +METO25TA3 PO; +METOPROLOL TARTRATE 25 MG TAB PO PRN; +MORP1TAB24 PO; +MSIR15 PO; +NEUR300C PO; -NOVOLOGP2 SQ; +NOVOLOGSS SQ; +PANT40TA3 PO; +PERI PO; -PIOG15TA5 PO; +POLY17S PO; +PROPOFOL 200 MG/20 ML AMP IV ONE; +SODIUM CHLORID 0.9% 500 ML IV PRN; +TAMS5CAP PO; +TENO300 PO; +THERTAB15 PO; -TRAD5TAB PO; +WHEEMIS3
--- NOTE | 2017-04-09 13:30 | GIPROC ---
[facility] [address] [facility]. [facility] [place], [address] EGD PROCEDURE REPORT EXAM DATE: 04/09/2017 PATIENT NAME: Tariq Parks MR #: [id number] BIRTHDATE: 1950 ATTENDING: Wayne Shrestha MD ORDER #: [id number] AIRPORT OPERATIONS CREW MEMBER: Uday Forbes and Makeda Ruelas STATUS: outpatient INDICATIONS: The patient is a 67 yr old male here for an EGD due to iron deficiency anemia and epigastric abdominal pain PROCEDURE PERFORMED: EGD w/ biopsy MEDICATIONS: None and Per Anesthesia. TOPICAL ANESTHETIC: CONSENT: The patient understands the risks and benefits of the procedure and understands that these risks include, but are not limited to: sedation, allergic reaction, infection, perforation and/or bleeding. Alternative means of evaluation and treatment include, among others: physical exam, x-rays, and/or surgical intervention. The patient elects to proceed with this endoscopic procedure. medical equipment was checked for proper function. Hand hygiene and appropriate measures for infection prevention was taken. After the risks, benefits and alternatives of the procedure were thoroughly explained, Informed consent was verified, confirmed and timeout was successfully executed by the treatment team. The patient was anesthetized with topical anesthesia and the Pentax [id number] endoscope was introduced through the mouth and advanced to the second portion of the duodenum. Retroflexed views revealed no abnormalities The gastroscope was then slowly withdrawn and removed. ESOPHAGUS: There was LA Class A esophagitis noted. A biopsy was performed using cold forceps. Sample sent for histology. STOMACH: There was erythematous moderate gastritis in the gastric antrum. A biopsy was performed using cold forceps. Sample sent for histology. DUODENUM: The duodenal mucosa appeared normal in the bulb and second portion of the duodenum. ADVERSE EVENTS: There were no complications. IMPRESSIONS: 1. There was LA Class A esophagitis noted; biopsy was performed 2. There was erythematous gastritis in the gastric antrum; biopsy was performed 3. Normal duodenal mucosa in the bulb and second portion of the duodenum 4. Retroflexed views revealed no abnormalities RECOMMENDATIONS: 1. Anti-reflux regimen 2. Continue PPI 3. Avoid NSAIDS PATIENT CONDITION: stable DISPOSITION: Inpatient REPEAT EXAM: Return 3 years EGD pending biopsy results Wayne Shrestha MD eSigned: Wayne Shrestha MD 04/09/2017 1:29 PM cc: PATIENT NAME: CharlyTariq montilla MR#: [id number]
[2017-04-09 14:06] VITALS: BP 119/73; PULSE 87; RESP 18; TEMP 98.2; O2SAT 100
== END ==
LOC: HSDC 12:17
PROVIDERS: ATTEND Internal Medicine Gastroenterology
DX: D50.9 Iron deficiency anemia, unspecified (principal); R10.9 Unspecified abdominal pain; K20.9 Esophagitis, unspecified; K29.70 Gastritis, unspecified, without bleeding
CPT/HCPCS: 88305; 88312

== ENCOUNTER 2017-04-16 13:15 | Inpatient (IN) | payer MEDICARE, MEDICAID ==
[~2017-04-16 13:15] MED LIST changes: -ACET325T15 PO; -AMLO10 PO; -Budeson-Formot 160-4.5 Mg Inh INH; -CARA1TAB6 PO; -CLON.1 PO; -CYCL10TA PO; -ECASA81 PO; -FERR325T20 PO; -GEMF600 PO; -LACTATED RINGER'S 1000 ML IV PRN; -LIDO1ADH4 T-DERMAL; -LIDOCAINE HCL 1% PF 5 ML SYRINGE OTHER ONE; -MEDR4TAB PO; -METO25TA3 PO; -METOPROLOL TARTRATE 25 MG TAB PO PRN; -MSIR15 PO; -NOVOLOGSS SQ; -PANT40TA3 PO; -PERI PO; -POLY17S PO; -PROPOFOL 200 MG/20 ML AMP IV ONE; -SODIUM CHLORID 0.9% 500 ML IV PRN; -THERTAB15 PO
[2017-04-16] MEDS ORDERED: METO25TA3 PO (13:35)
[2017-04-16] MEDS ORDERED: CARA1TAB6 PO (13:35)
[2017-04-16] MEDS ORDERED: ECASA81 PO (13:35)
[2017-04-16] MEDS ORDERED: POLY17S PO (13:35)
[2017-04-16] MEDS ORDERED: PERI PO (13:35)
[2017-04-16] MEDS ORDERED: Budeson-Formot 160-4.5 Mg Inh INH (13:35)
[2017-04-16] MEDS ORDERED: FERR325T20 PO (13:35)
[2017-04-16] MEDS ORDERED: NEUR300C PO (13:35)
[2017-04-16] MEDS ORDERED: MEDR4TAB PO ×4 (13:35)
[2017-04-16] MEDS ORDERED: LEVEMIR SQ (13:35)
[2017-04-16] MEDS ORDERED: AMLO10 PO (13:35)
[2017-04-16] MEDS ORDERED: PANT40TA3 PO (13:35)
[2017-04-16] MEDS ORDERED: LIDO1ADH4 T-DERMAL (13:35)
[2017-04-16] MEDS ORDERED: ACET325T15 PO (13:35)
[2017-04-16] MEDS ORDERED: GEMF600 PO (13:35)
[2017-04-16] MEDS ORDERED: LISI10TA3 PO (13:35)
[2017-04-16] MEDS ORDERED: TAMS5CAP PO (13:35)
[2017-04-16] MEDS ORDERED: CYCL10TA PO (13:35)
[2017-04-16] MEDS ORDERED: THERTAB15 PO (13:35)
[2017-04-16] MEDS ORDERED: NOVOLOGSS SQ (13:35)
[2017-04-16] MEDS ORDERED: TENO300 PO (13:35)
[2017-04-16] MEDS ORDERED: CLON.1 PO (13:35)
[2017-04-16] MEDS ORDERED: MSIR15 PO (13:47)
[2017-04-16] MEDS ORDERED: DILA4TAB10 PO (13:47)
[2017-04-16] MEDS ORDERED: MORP1TAB24 PO (13:47)
[2017-04-16] MEDS ORDERED: LIDOCAINE 1%/EPINEPHrine 1:100,000 SOLN 20 ML VIAL ONE (14:11)
[2017-04-16] MEDS ORDERED: SODIUM BICARBONATE 8.4% INJ 50 ML ONE (14:12)
[2017-04-16] MEDS ORDERED: MIDAZOLAM HCL 2 MG/2 ML VIAL ONE (14:15)
[2017-04-16 15:45] VITALS: BP 107/64; PULSE 90; RESP 16; TEMP 98.2; O2SAT 94
[2017-04-16 16:00] VITALS: BP 100/63; PULSE 88; RESP 16; O2SAT 94
[2017-04-16 17:26] VITALS: BP 103/61; PULSE 81; RESP 17; TEMP 98.2; O2SAT 98
[2017-04-16] MEDS ORDERED: ONDANSETRON HCL 4 MG/2 ML VIAL IVP PRN (17:30)
[2017-04-16] MEDS ORDERED: MAGNESIUM HYDROXIDE SUSP 30 ML CUP PO PRN (17:30)
[2017-04-16] MEDS ORDERED: cloNIDine HCL 0.1 MG TAB PO PRN (17:30)
[2017-04-16] MEDS ORDERED: BISACODYL 10 MG SUPP RECTAL PRN (17:30)
[2017-04-16] MEDS ORDERED: SENNOSIDES 8.6 MG TAB PO PRN (17:30)
[2017-04-16] MEDS ORDERED: SODIUM CHLORIDE 0.9% FLUSH 10 ML FLUSH IV FLUSH PRN (17:30)
[2017-04-16] MEDS ORDERED: LACTULOSE SYRUP 20 GM/30 ML CUP PO PRN (17:30)
[2017-04-16] MEDS ORDERED: ACETAMINOPHEN 325 MG TAB PO PRN (17:30)
[2017-04-16] MEDS ORDERED: NALOXONE HCL 0.4 MG/ML AMP IV PUSH PRN (17:30)
--- NOTE | 2017-04-16 17:35 | HHI.HP ---
HPI Service [facility] Hospitalists Primary Care Physician No Primary Care Physician Admission Diagnosis Diagnoses: (1) Psoas abscess (2) Osteomyelitis of vertebra of lumbosacral region (3) Hepatitis B (4) Hepatitis C (5) Liver cirrhosis (6) COPD (chronic obstructive pulmonary disease) (7) Chronic obstructive pulmonary disease Chief Complaint: Psoas muscle abscess, discitis Travel History International Travel<30 Days: No Contact w/Intl Traveler <30 Da: No History of Present Illness 67-year-old male with a medical history significant for diabetes, hypertension, hepatitis B and C, liver cirrhosis, and ongoing lumbar discitis/osteomyelitis/ epidural abscess. Patient was initially treated at [facility] and transferred to [facility] for comprehensive rehabilitation. However repeat imaging shows worsening discitis and psoas muscle abscess. Patient is readmitted to the medical floor for CT-guided drainage and continuing medical care. He has been followed by infectious disease and neurosurgery who both recommended drainage of abscesses. Patient is seen in his room prior to transfer. He reports persistent lower back pain radiating down his right leg. He denies any fevers or chills. Review of Systems Constitutional: DENIES: Fever, Chills Musculoskeletal: COMPLAINS OF: Muscle aches, Stiffness, Back pain Except as stated in HPI: all other systems reviewed are Neg Past Family Social History Past Medical History Lumbar discitis, osteomyelitis, epidural abscess status post evacuation. HTN DM COPD hepatitis B, new hepatitis C, from blood transfusion as a child cirrhosis gastric/esophageal varices recurrent pancreatitis bladder cancer Hx of DVT recent bacterial colitis s/p bowel resection staphylococcus aureus bacteremia Past Surgical History Lumbar laminectomy and evacuation of epidural abscess Back surgery x2 Bilateral knee surgery Left hand surgical reconstruction bowel resection Cholecystectomy Appendectomy Spleen repair after trauma Multiple EGDs Reported Medications Reported Meds & Active Scripts Active Dilaudid (Hydromorphone HCl) 4 Mg Tab 4 Mg PO Q4H PRN Morphine IR (Morphine Sulfate) 15 Mg Tab 15 Mg PO Q8HR PRN 10 Days Morphine ER (Morphine Sulfate) 15 Mg Tab 30 Mg PO Q8HR 10 Days Thera Tablet (Multivitamin with Folic Acid) 400 Mcg Tablet 1 Tab PO DAILY 30 Days Lidoderm (Lidocaine) 5 % Adh..patch 1 Patch T-DERMAL DAILY 30 Days Levemir Inj (Insulin Detemir) 1,000 unit/ 10 ML Vial 8 Units SQ BID 30 Days Do not mix with any other Insulin. Novolog Inj (Insulin Aspart) 100 Unit/Ml Inj 1 Units SQ ACHS SLIDING SCALE 30 Days Medrol (Methylprednisolone) 4 Mg Tab 4 Mg PO DAILY@08 Medrol (Methylprednisolone) 4 Mg Tab 4 Mg PO DAILY@08,12,21 Medrol (Methylprednisolone) 4 Mg Tab 4 Mg PO DAILY@08,21 Medrol (Methylprednisolone) 4 Mg Tab 4 Mg PO DAILY@08,12,18,21 Pantoprazole (Pantoprazole Sodium) 40 Mg Tab 40 Mg PO DAILY 30 Days Carafate (Sucralfate) 1 Gram Tab 1 Gm PO TIDAC 30 Days Gnp Senna Plus 8.6-50 mg (Sennosides-Docusate Sodium) 8.6 Mg-50 Mg Tab 1 Tab PO BID 30 Days Polyethylene Glycol 3350 Powder (Polyethylene Glycol) 17 Gram Pow 17 Gm PO DAILY 1 Days [Budeson-Formot 160-4.5 Mg Inh] 60 PUFF Aero 1 Puff INH Q12HR 30 Days Neurontin (Gabapentin) 300 Mg Cap 600 Mg PO TID 30 Days Eq Acetaminophen (Acetaminophen) 325 Mg Tab 650 Mg PO Q4H PRN [address] (Aspirin) 81 Mg Tabdr 81 Mg PO DAILY 30 Days Lisinopril 10 Mg Tab 10 Mg PO DAILY 30 Days Norvasc (Amlodipine Besylate) 10 Mg Tab 10 Mg PO DAILY 30 Days Metoprolol Tartrate 25 Mg Tab 12.5 Mg PO Q12HR 30 Days Catapres (Clonidine) 0.1 Mg Tab 0.1 Mg PO Q6H PRN 30 Days Lopid (Gemfibrozil) 600 Mg Tab 600 Mg PO BIDAC 30 Days Take 30 minutes prior to breakfast and dinner Ferosul (Ferrous Sulfate) 325 Mg (65 Mg Iron) Tablet 325 Mg PO BID@,17 30 Days Flexeril (Cyclobenzaprine HCl) 10 Mg Tab 10 Mg PO Q8H PRN 30 Days Flomax (Tamsulosin HCl) 0.4 Mg Cap 0.4 Mg PO Q12HR 30 Days Viread (Tenofovir Disoproxil Fumarate) 300 Mg Tab 300 Mg PO DAILY 30 Days Wheelchair (Device) 1 Mis Mis Ea .ROUTE DIRECTED Commode 3-in-1 (Device) 1 Mis Mis Ea .ROUTE DIRECTED Walker Rolling/GetGo (Device) 1 Mis Mis Ea .ROUTE DIRECTED Viread (Tenofovir Disoproxil Fumarate) 300 Mg Tab 300 Mg PO DAILY Cefazolin Inj (Cefazolin Sodium/Dextrose) 2 Gm/50 Ml Bagp 2 Gm IV Q8H 42 Days STOP Date 05/06/2017 Levemir Inj (Insulin Detemir) 1,000 unit/ 10 ML Vial 10 Units SQ DAILY 30 Days Do not mix with any other Insulin. Famotidine 20 Mg Tab 20 Mg PO BID Neurontin (Gabapentin) 300 Mg Cap 300 Mg PO TID Morphine ER (Morphine Sulfate) 15 Mg Tab 45 Mg PO Q12HR Norvasc (Amlodipine Besylate) 5 Mg Tab 5 Mg PO DAILY Flomax (Tamsulosin HCl) 0.4 Mg Cap 0.4 Mg PO Q12HR Reported Fish Oil (Berlin-3 Fatty Acids) 1,000 Mg Cap 1 Cap PO BID Gemfibrozil 600 Mg Tab 600 Mg PO BIDAC Take 30 minutes prior to breakfast and dinner. Symbicort Inh (Budesonide/Formoterol Fumarate) 160-4.5 Mcg/Act Aero 1 Puff INH Q12HR Lisinopril 10 Mg Tab 10 Mg PO DAILY Allergies: Coded Allergies: Iodinated Contrast- Oral and IV Dye (Unverified Allergy, Severe, rash/ flush, 03/10/17) butorphanol (Unverified Allergy, Severe, rash, 03/10/17) codeine (Unverified Allergy, Severe, breathing probs, 03/10/17) pentazocine (Unverified Allergy, Severe, breathing probs, 03/10/17) Family History Mother has history of lupus. She from complications of pneumonia. Father with colon cancer and diabetes, Multiple grandparents with cancer history. Social History Smokes tobacco, down to 3 cigarettes/day Denies any alcohol or illicit drug use Physical Exam Vital Signs Vital Signs Date Time Temp Pulse Resp B/P (MAP) Pulse Ox O2 Delivery O2 Flow Rate FiO2 04/16/17 17:26 98.2 81 17 103/61 (75) 98 04/16/17 16:00 88 16 100/63 (75) 94 04/16/17 15:45 98.2 90 16 107/64 (90) 60 Physical Exam GENERAL: Patient appear older than stated age. Uncomfortable with minimal movement. SKIN: Intact dressing in the lumbar area. HEAD: Atraumatic. Normocephalic. No temporal or scalp tenderness. EYES: Pupils equal round and reactive. Extraocular motions intact. No scleral icterus. No injection or drainage. ENT: Nose without bleeding, purulent drainage or septal hematoma. Throat without erythema, tonsillar hypertrophy or exudate. Uvula midline. Airway patent. NECK: Trachea midline. No JVD or lymphadenopathy. Supple, nontender, no meningeal signs. CARDIOVASCULAR: Regular rate and rhythm without murmurs, gallops, or rubs. RESPIRATORY: Clear to auscultation. Breath sounds equal bilaterally. No wheezes , rales, or rhonchi. GASTROINTESTINAL: Abdomen soft, non-tender, nondistended. No hepato-splenomegaly , or palpable masses. No guarding. MUSCULOSKELETAL: Lower back in the lumbar area is tender to palpation diffusely. Exam limited secondary to pain. He reports significant pain with any movement of his leg. NEUROLOGICAL: Awake and alert. Normal speech. Caprini VTE Risk Assessment Caprini VTE Risk Assessment: Mod/High Risk (score >= 2) Caprini Risk Assessment Model Point Value = 1 Point Value = 2 Point Value = 3 Point Value = 5 Age 41-60 Minor surgery BMI > 25 kg/m2 Swollen legs Varicose veins or History of unexplained or recurrent spontaneous Oral contraceptives or hormone replacement Sepsis (< 1 month) Serious lung disease, including pneumonia (< 1 month) Abnormal pulmonary function Acute myocardial infarction Congestive heart failure (< 1 month) History of inflammatory bowel disease Medical patient at bed rest Age 61-74 Arthroscopic surgery Major open surgery (> 45 min) Laparoscopic surgery (> 45 min) Malignancy Confined to bed (> 72 hours) Immobilizing plaster cast Central venous access Age >= 75 History of VTE Family history of VTE Factor V Leiden Prothrombin [id number] Lupus anticoagulant Anticardiolipin antibodies Elevated serum homocysteine Heparin-induced thrombocytopenia Other congenital or acquired thrombophilia Stroke (< 1 month) Elective arthroplasty Hip, pelvis, or leg fracture Acute spinal cord injury (< 1 month) Prophylaxis Regimen Total Risk Factor Score Risk Level Prophylaxis Regimen 0-1 Low Early ambulation 2 Moderate Order ONE of the following: *Sequential Compression Device (SCD) *Heparin 5000 units SQ BID 3-4 Higher Order ONE of the following medications: *Heparin 5000 units SQ TID *Enoxaparin/Lovenox 40 mg SQ daily (WT < 150 kg, CrCl > 30 mL/min) *Enoxaparin/Lovenox 30 mg SQ daily (WT < 150 kg, CrCl > 10-29 mL/min) *Enoxaparin/Lovenox 30 mg SQ BID (WT < 150 kg, CrCl > 30 mL/min) AND/OR *Sequential Compression Device (SCD) 5 or more Highest Order ONE of the following medications: *Heparin 5000 units SQ TID (Preferred with Epidurals) *Enoxaparin/Lovenox 40 mg SQ daily (WT < 150 kg, CrCl > 30 mL/min) *Enoxaparin/Lovenox 30 mg SQ daily (WT < 150 kg, CrCl > 10-29 mL/min) *Enoxaparin/Lovenox 30 mg SQ BID (WT < 150 kg, CrCl > 30 mL/min) AND *Sequential Compression Device (SCD) Assessment and Plan Assessment and Plan 67-year-old male admitted from [facility] for worsening discitis, osteomyelitis, new psoas muscle abscess. Worsening discitis, new psoas abscess. - Patient is status post L1/L2 laminectomy and evacuation of lumbar spinal epidural abscess on 04/[address] Fitzgerald. - Neurosurgery following. Infectious disease consulted on the patient yesterday and recommended abscess drainage and cultures. - Patient to undergo CT-guided drainage today. We'll need to monitor cultures - Continue IV Ancef every 8 hours per ID. - Continue pain controlled with schedule Oramorph 30 mg Dilaudid 4 mg by mouth as needed. - On methylprednisone taper. Continue to taper tomorrow. - Consult PT Hepatitis B and liver cirrhosis: seen by GI on previous admission -Continue on current treatment of tenofovir for treatment of hepatitis B. COPD: chronic, stable -Continue DuoNeb PRN. Diabetes mellitus: chronic, stable, BG fairly well controlled -Levemir 8 units subcutaneous twice a day. -Monitor Accu-Cheks and cover with low dose Novolog SSI Hypertension: Continue chronic home medications DVT Prophylaxis: SCDs today given the need for procedure, plan for heparin tomorrow. Physician Certification 2 Midnight Certification Type: Admission for Inpatient Services Order for Inpatient Services The services are ordered in accordance with Medicare regulations or non- Medicare payer requirements, as applicable. In the case of services not specified as inpatient-only, they are appropriately provided as inpatient services in accordance with the 2-midnight benchmark. Estimated LOS (days): 5 days is the estimated time the patient will need to remain in the hospital, assuming treatment plan goals are met and no additional complications. Post-Hospital Plan: Not yet determined Monique Min MD Apr 16, 2017 17:35
[2017-04-16 20:00] VITALS: BP 109/63; PULSE 84; RESP 20; TEMP 97; O2SAT 100
[2017-04-16] MEDS: BUDESONIDE-FORMOTEROL 160/4.5 MCG INHALER INH SCH (21:00)
[2017-04-16] MEDS: INSULIN ASPART SUPPLEMENTAL SCALE SQ SCH (21:00)
[2017-04-16] MEDS ORDERED: NON-FORMULARY DRUG (Omega-3 Fatty Acids (Fish Oil) 1 CAP) PO SCH (21:00)
[2017-04-16] MEDS: ceFAZolin 2 GM/50 ML BAG IV SCH (21:21)
[2017-04-16] MEDS: HYDROmorphone HCL 4 MG TAB PO PRN (21:22)
[2017-04-16] MEDS: GABAPENTIN 300 MG CAP PO SCH (21:22)
[2017-04-16] MEDS: FAMOTIDINE 20 MG TAB PO SCH (21:23)
[2017-04-16] MEDS: SODIUM CHLORIDE 0.9% FLUSH 10 ML FLUSH IV FLUSH SCH (21:23)
[2017-04-16] MEDS: METOPROLOL TARTRATE 25 MG TAB PO SCH (21:23)
[2017-04-16] MEDS: TAMSULOSIN HCL 0.4 MG CAP PO SCH (21:23)
[2017-04-16] MEDS: methylPREDNISolone 4 MG TAB PO SCH (21:23)
[2017-04-16] MEDS: MORPHINE SULFATE 15 MG CONTROLLED RELEASE TAB PO SCH (21:25)
[2017-04-16] MEDS: INSULIN DETEMIR 100 UNITS/ML VIAL SQ SCH (21:25)
[2017-04-17] VITALS: BP 106/71; PULSE 81; RESP 20; TEMP 97.3; O2SAT 96
[2017-04-17] MEDS: HYDROmorphone HCL 4 MG TAB PO PRN ×5 (01:34→20:40)
[2017-04-17] MEDS: ceFAZolin 2 GM/50 ML BAG IV SCH ×3 (03:53→20:55)
[2017-04-17 04:00] VITALS: BP 123/73; PULSE 84; RESP 18; TEMP 97.7; O2SAT 94
[2017-04-17] MEDS: MORPHINE SULFATE 15 MG CONTROLLED RELEASE TAB PO SCH ×3 (05:42→23:04)
[2017-04-17] MEDS: GEMFIBROZIL 600 MG TAB PO SCH ×2 (05:42→16:11)
[2017-04-17 06:06] LABS: AUTOMATED NEUTROPHIL # 5.6 TH/MM3 (1.8-7.7); BASOPHIL % 0.4 % (0.0-2.0); EOSINOPHIL # 0.1 TH/MM3 (0-0.4); EOSINOPHIL % 0.9 % (0.0-4.0); HEMATOCRIT 26.9 % (39.0-51.0); HEMO FLAGS DIFF FINAL; LYMPH % 20.1 % (9.0-44.0); LYMPHOCYTE # 1.6 TH/MM3 (1.0-4.8); MEAN CELL VOLUME 81.4 FL (80.0-100.0); MEAN CORPUSCULAR HEMOGLOBIN 27.1 PG (27.0-34.0); MEAN CORPUSCULAR HGB CONC 33.3 % (32.0-36.0); MONO % 9.4 % (0.0-8.0); NEUT % 69.2 % (16.0-70.0); PLATELET COUNT 180 TH/MM3 (150-450); RED BLOOD COUNT 3.31 MIL/MM3 (4.50-5.90); RED CELL DISTRIBUTION WIDTH 20.4 % (11.6-17.2)
[2017-04-17 06:28] LABS: BICARBONATE 23.8 MEQ/L (21.0-32.0); POTASSIUM 4.3 MEQ/L (3.5-5.1)
[2017-04-17 08:00] VITALS: BP 117/63; PULSE 76; RESP 21; TEMP 98; O2SAT 100
[2017-04-17] MEDS: INSULIN ASPART SUPPLEMENTAL SCALE SQ SCH ×4 (08:00→20:58)
[2017-04-17] MEDS: INSULIN DETEMIR 100 UNITS/ML VIAL SQ SCH ×2 (09:43→20:41)
[2017-04-17] MEDS: BUDESONIDE-FORMOTEROL 160/4.5 MCG INHALER INH SCH ×2 (09:43→20:45)
[2017-04-17] MEDS: TENOFOVIR DISOPROXIL FUMARATE 300 MG TAB PO SCH (09:43)
[2017-04-17] MEDS: PANTOPRAZOLE SOD 40 MG DELAYED RELEASE TAB PO SCH (09:44)
[2017-04-17] MEDS: GABAPENTIN 300 MG CAP PO SCH ×3 (09:44→18:12)
[2017-04-17] MEDS: TAMSULOSIN HCL 0.4 MG CAP PO SCH ×2 (09:44→20:40)
[2017-04-17] MEDS: ASPIRIN EC 81 MG TABEC PO SCH (09:44)
[2017-04-17] MEDS: CYCLOBENZAPRINE HCL 10 MG TAB PO PRN ×2 (09:44→20:41)
[2017-04-17] MEDS: LISINOPRIL 10 MG TAB PO SCH (09:45)
[2017-04-17] MEDS: FAMOTIDINE 20 MG TAB PO SCH ×2 (09:45→20:41)
[2017-04-17] MEDS: METOPROLOL TARTRATE 25 MG TAB PO SCH ×2 (09:45→20:40)
[2017-04-17] MEDS: amLODIPine BESYLATE 5 MG TAB PO SCH (09:45)
[2017-04-17] MEDS: SODIUM CHLORIDE 0.9% FLUSH 10 ML FLUSH IV FLUSH SCH ×2 (09:51→20:42)
[2017-04-17] MEDS: SUCRALFATE 1 GM TAB PO SCH ×3 (09:56→16:11)
[2017-04-17] MEDS: methylPREDNISolone 4 MG TAB PO SCH ×3 (09:56→20:40)
--- NOTE | 2017-04-17 11:36 | HHI.PR ---
Subjective Remarks Patient reports back pain is unchanged. No fevers. Drain is not putting out much. IR aware. Objective Vitals Vital Signs Date Time Temp Pulse Resp B/P (MAP) Pulse Ox O2 Delivery O2 Flow Rate FiO2 04/17/17 08:00 98.0 76 21 117/63 (81) 100 04/17/17 04:00 97.7 84 18 123/73 (90) 94 04/17/17 00:00 97.3 81 20 106/71 (83) 96 04/16/17 20:00 97.0 84 20 109/63 (78) 100 04/16/17 17:26 98.2 81 17 103/61 (75) 98 04/16/17 16:00 88 16 100/63 (75) 94 04/16/17 15:45 98.2 90 16 107/64 (78) 94 I/O 04/16/17 04/16/17 04/16/17 04/17/17 04/17/17 04/17/17 07:00 15:00 23:00 07:00 15:00 23:00 Intake Total 50 ml 50 ml Output Total 600 ml 400 ml Balance -550 ml 50 ml -400 ml Intake IV Total 50 ml 50 ml Output Urine Total 600 ml 400 ml Drainage Total 0 ml # Voids 6 Result Diagram: 04/17/1745 04/17/17 0545 Objective Remarks GENERAL: Patient is in no apparent distress. CARDIOVASCULAR: Normal rate and regular rhythm without murmurs, gallops, or rubs. RESPIRATORY: Good respiratory efforts. Breath sounds equal and clear to auscultation bilaterally. GASTROINTESTINAL: Abdomen soft, non-tender, non-distended. Normal active bowel sounds MUSCULOSKELETAL: Reports tenderness to palpation over the lumbar area. Drain is in place. It is draining minimal serous sanguinous fluid NEURO: Alert & Oriented x4 to person, place, time, situation. Moves all ext x4 PSYCH: Appropriate mood and affect. A/P Problem List: (1) Psoas abscess ICD Code: K68.12 - Psoas muscle abscess Status: Acute (2) Osteomyelitis of vertebra of lumbosacral region ICD Code: M46.27 - Osteomyelitis of vertebra, lumbosacral region Status: Acute (3) Hepatitis B ICD Code: B19.10 - Unspecified viral hepatitis B without hepatic coma Status: Acute (4) Hepatitis C ICD Code: B19.20 - Hepatitis C virus infection Status: Chronic (5) Liver cirrhosis ICD Code: K74.60 - Unspecified cirrhosis of liver (6) COPD (chronic obstructive pulmonary disease) ICD Code: J44.9 - Chronic obstructive pulmonary disease, unspecified (7) Chronic obstructive pulmonary disease ICD Code: J44.9 - Chronic obstructive pulmonary disease Status: Chronic Assessment and Plan 67-year-old male admitted from [facility] for worsening discitis, osteomyelitis, new psoas muscle abscess. Worsening discitis, new psoas abscess. - Patient is status post L1/L2 laminectomy and evacuation of lumbar spinal epidural abscess on 04/[address] Fitzgerald. - Neurosurgery following. Infectious disease consulted on the patient yesterday and recommended abscess drainage and cultures. - Patient status post CT-guided drainage of abscess on 04/16/17. We'll need to monitor cultures - Continue IV Ancef every 8 hours per ID. - Continue pain controlled with schedule Oramorph 30 mg Dilaudid 4 mg by mouth as needed. - On methylprednisone taper. Continue to taper -Physical therapy consulted Hepatitis B and liver cirrhosis: seen by GI on previous admission -Continue on current treatment of tenofovir for treatment of hepatitis B. COPD: chronic, stable -Continue DuoNeb PRN. Diabetes mellitus: chronic, stable, BG fairly well controlled -Levemir 8 units subcutaneous twice a day. -Monitor Accu-Cheks and cover with low dose NovoLog SSI Hypertension: Continue chronic home medications DVT Prophylaxis: Start heparin Monique Min MD Apr 17, 2017 11:36
[2017-04-17] MEDS ORDERED: GLUCAGON 1 MG/ML VIAL OTHER PRN (11:45)
[2017-04-17] MEDS ORDERED: DEXTROSE 50% IN WATER 50 ML VIAL(D50) IV PUSH PRN (11:45)
[2017-04-17 12:00] VITALS: BP 102/61; PULSE 79; RESP 18; TEMP 98.5; O2SAT 100
[2017-04-17] MEDS: FERROUS SULFATE 325 MG (65 MG ELEMENTAL IRON) TAB PO SCH ×2 (12:34→16:11)
--- NOTE | 2017-04-17 13:21 | HHI.IDPN ---
Note Infectious Disease Note Patient seen in [facility] 2 days ago. Continues on IV antibiotics for infection. Had drainage of left psoas abscess last evening. Afebrile. Notes back spasms and severe back pain. No SOB. The patient has been receiving intravenous antibiotics in for MSSA, diskitis along with osteomyelitis at L1-L2. He was also noted to have epidural, paraspinal and psoas abscess bilaterally. He was treated with initially intravenous oxacillin and then he was switched to intravenous Ancef, and he was transferred to [facility] to continue the antibiotics. MRI noted progression of diskitis, osteomyelitis and epidural inflammatory change and paraspinous inflammatory change at the L1-L2 level. The left psoas abscess was noted to have fluid collection in the posterior soft tissue at the L1 level and also there was a low signal within the anterior epidural space at L1-L2 level related to either small disk fragments or small abscesses. The last positive culture of the back wound was staph aureus on 03/25/2017. The patient had previously undergone L1-L2 laminectomy with evacuation of lumbar spinal epidural abscess. This was on March 25. CT scan on April 11 had revealed splenomegaly and also fluid in the psoas muscle and irregularity between L1-L2 concerning for diskitis. PAST MEDICAL HISTORY 1. Hypertension 2. Diabetes mellitus 3. Hepatitis B 4. Hepatitis C 5. Cirrhosis 6. Esophageal varices 7. History of bowel resection for colitis 8. MSSA a epidural abscess / osteomyelitis / diskitis. 9. Staph aureus bacteremia. 10. Chronic obstructive pulmonary disease 11. History of bladder cancer 12. History of deep venous thrombosis 13. Appendectomy 14. Cholecystectomy. ALLERGIES PENTAZOCINE CODEINE BUTORPHANOL ORAL DYE IV DYE IODINATED CONTRAST ANTIBIOTIC: Ancef. MEDICATIONS Current Medications Medications (Trade) Dose Ordered Sig/Jaya Route PRN Reason Start Time Stop Time Status Last Admin Dose Admin Sodium Chloride (NS Flush) 2 ml UNSCH PRN IV FLUSH FLUSH AFTER USING IV ACCESS 04/16/17 17:30 Sodium Chloride (NS Flush) 2 ml BID IV FLUSH 04/16/17 21:00 04/17/17 09:51 Acetaminophen (Tylenol) 650 mg Q4H PRN PO TEMP > 100.4 04/16/17 17:30 Ondansetron HCl (Zofran Inj) 4 mg Q6H PRN IVP NAUSEA OR VOMITING 04/16/17 17:30 Naloxone HCl (Narcan Inj) 0.4 mg UNSCH PRN IV PUSH SEE LABEL COMMENTS 04/16/17 17:30 Magnesium Hydroxide (Milk Of Magnesia Liq) 30 ml Q12H PRN PO Mild constipation 04/16/17 17:30 Sennosides (Senokot) 17.2 mg Q12H PRN PO Moderate constipation 04/16/17 17:30 Bisacodyl (Dulcolax Supp) 10 mg DAILY PRN RECTAL SEVERE CONSITIPATION 04/16/17 17:30 Lactulose (Lactulose Liq) 30 ml DAILY PRN PO SEVERE CONSITIPATION 04/16/17 17:30 Amlodipine Besylate (Norvasc) 5 mg DAILY PO 04/17/17 09:00 04/17/17 09:45 Aspirin (Ecotrin Ec) 81 mg DAILY PO 04/17/17 09:00 04/17/17 09:44 Budesonide/ Formoterol Fumarate (Symbicort 160-4.5 Mcg Inh) 1 puff Q12HR INH 04/16/17 21:00 04/17/17 09:43 Cefazolin Sodium/ Dextrose (Ancef 2 Gm Premix) 2 gm Q8H IV 04/16/17 20:00 04/17/17 12:38 Clonidine (Catapres) 0.1 mg Q6H PRN PO SBP> OR = 170, DBP> OR = 100 04/16/17 17:30 Cyclobenzaprine HCl (Flexeril) 10 mg Q8H PRN PO MUSCLE SPASM 04/16/17 17:30 04/17/17 09:44 Famotidine (Pepcid) 20 mg BID PO 04/16/17 21:00 04/17/17 09:45 Ferrous Sulfate (Ferrous Sulfate) 325 mg BID@, PO 04/17/17 12:00 04/17/17 12:34 Gabapentin (Neurontin) 600 mg TID PO 04/16/17 18:00 04/17/17 09:44 Gemfibrozil (Lopid) 600 mg BIDAC PO 04/17/17 07:00 04/17/17 05:42 Hydromorphone HCl (Dilaudid) 4 mg Q4H PRN PO Pain 1-10 04/16/17 17:30 04/17/17 09:44 Insulin Detemir (Levemir Inj) 8 units BID SQ 04/16/17 21:00 04/17/17 09:43 Lisinopril (Prinivil) 10 mg DAILY PO 04/17/17 09:00 04/17/17 09:45 Methylprednisolone (Medrol) 4 mg DAILY@08,12,21 PO 04/16/17 21:00 04/17/17 12:34 Metoprolol Tartrate (Lopressor) 12.5 mg Q12HR PO 04/16/17 21:00 04/17/17 09:45 Morphine Sulfate (Oramorph Sr) 30 mg Q8HR PO 04/16/17 22:00 04/17/17 05:42 Pantoprazole Sodium (Protonix) 40 mg DAILY PO 04/17/17 09:00 04/17/17 09:44 Sucralfate (Carafate) 1 gm TIDAC PO 04/17/17 08:00 04/17/17 12:34 Tamsulosin HCl (Flomax) 0.4 mg Q12HR PO 04/16/17 21:00 04/17/17 09:44 Tenofovir Disoproxil Fumarate (Viread) 300 mg DAILY PO 04/17/17 09:00 04/17/17 09:43 Dextrose (D50w (Vial) Inj) 50 ml UNSCH PRN IV PUSH HYPOGLYCEMIA-SEE COMMENTS 04/17/17 11:45 Glucagon (Glucagon Inj) 1 mg UNSCH PRN OTHER HYPOGLYCEMIA-SEE COMMENTS 04/17/17 11:45 Insulin Aspart (NovoLOG SUPPLEMENTAL SCALE) 1 ACHS SLIDING SCALE SQ 04/17/17 12:00 Heparin Sodium (Porcine) (Heparin Central Flush) 200 units DAILY IV FLUSH 04/18/17 09:00 SOCIAL HISTORY No alcohol. The patient smoked a few cigarettes a day prior to hospitalization. No illicit drugs. FAMILY HISTORY Noncontributory. OBJECTIVE: Vital Signs Date Time Temp Pulse Resp B/P (MAP) Pulse Ox O2 Delivery O2 Flow Rate FiO2 04/17/17 12:00 98.5 79 18 102/61 (75) 100 04/17/17 08:00 98.0 76 21 117/63 (81) 100 04/17/17 04:00 97.7 84 18 123/73 (90) 94 04/17/17 00:00 97.3 81 20 106/71 (83) 96 04/16/17 20:00 97.0 84 20 109/63 (78) 100 04/16/17 17:26 98.2 81 17 103/61 (75) 98 04/16/17 16:00 88 16 100/63 (75) 94 04/16/17 15:45 98.2 90 16 107/64 (78) 94 Laboratory Tests Test 04/17/17 05:45 White Blood Count 8.0 TH/MM3 Red Blood Count 3.31 MIL/MM3 Hemoglobin 9.0 GM/DL Hematocrit 26.9 % Mean Corpuscular Volume 81.4 FL Mean Corpuscular Hemoglobin 27.1 PG Mean Corpuscular Hemoglobin Concent 33.3 % Red Cell Distribution Width 20.4 % Platelet Count 180 TH/MM3 Mean Platelet Volume 8.6 FL Neutrophils (%) (Auto) 69.2 % Lymphocytes (%) (Auto) 20.1 % Monocytes (%) (Auto) 9.4 % Eosinophils (%) (Auto) 0.9 % Basophils (%) (Auto) 0.4 % Neutrophils # (Auto) 5.6 TH/MM3 Lymphocytes # (Auto) 1.6 TH/MM3 Monocytes # (Auto) 0.8 TH/MM3 Eosinophils # (Auto) 0.1 TH/MM3 Basophils # (Auto) 0.0 TH/MM3 CBC Comment DIFF FINAL Differential Comment Laboratory Tests Test 04/17/17 05:45 Blood Urea Nitrogen 32 MG/DL Creatinine 1.03 MG/DL Random Glucose 235 MG/DL Calcium Level 8.8 MG/DL Sodium Level 133 MEQ/L Potassium Level 4.3 MEQ/L Chloride Level 100 MEQ/L Carbon Dioxide Level 23.8 MEQ/L Anion Gap 9 MEQ/L Estimat Glomerular Filtration Rate 72 ML/MIN PHYSICAL EXAMINATION GENERAL: In distress from back pain. He is awake and alert and oriented. HEAD, EYES, EARS, NOSE, AND THROAT: Extraocular movements grossly intact, pupils reactive to light. No icterus. Oropharynx moist mucosa. No lesions. NECK: Supple. No adenopathy. LUNGS: Clear breath sounds. HEART: Regular S1, S2, No murmurs. No rubs. No gallops. ABDOMEN: Bowel sounds present, flat, soft, nontender. EXTREMITIES: No clubbing, cyanosis or edema. SKIN: No rash. NEUROLOGIC: Decreased strength in the lower extremities. IMPRESSION 1. Left psoas abscess. Culture pending. 2. Lumbar osteomyelitis / diskitis. Status post laminectomy and evacuation of epidural abscess. MSSA. Neurosurgery following. 3. Chronic back pain. RECOMMENDATIONS 1. Continue intravenous Ancef 2 grams IV every eight hours. 2. Monitor cultures. 3. Monitor temp and clinical status. Florentino Burnette MD Apr 17, 2017 13:21
[2017-04-17 16:00] VITALS: BP 105/61; PULSE 81; RESP 18; TEMP 98.6; O2SAT 98
[2017-04-17 19:00] VITALS: BP_SYST 120; BP_SYST 125; BP_DIAS 71; BP_DIAS 72; PULSE 81; PULSE 91; RESP 20; TEMP 97; TEMP 98.9; O2SAT 95; O2SAT 98
[2017-04-18] VITALS: BP 120/72; PULSE 81; RESP 20; TEMP 98.9; O2SAT 95
[2017-04-18] MEDS: ceFAZolin 2 GM/50 ML BAG IV SCH ×3 (03:33→21:11)
[2017-04-18] MEDS: HYDROmorphone HCL 4 MG TAB PO PRN ×5 (03:34→21:09)
[2017-04-18 04:00] VITALS: BP 140/73; PULSE 78; RESP 18; TEMP 97; O2SAT 95
[2017-04-18] MEDS: GEMFIBROZIL 600 MG TAB PO SCH ×2 (05:15→16:18)
[2017-04-18] MEDS: MORPHINE SULFATE 15 MG CONTROLLED RELEASE TAB PO SCH ×3 (05:16→21:10)
[2017-04-18 08:00] VITALS: BP 120/78; PULSE 79; RESP 20; TEMP 96.3; O2SAT 100
[2017-04-18] MEDS: CYCLOBENZAPRINE HCL 10 MG TAB PO PRN ×2 (08:07→21:10)
[2017-04-18] MEDS: amLODIPine BESYLATE 5 MG TAB PO SCH (09:50)
[2017-04-18] MEDS: methylPREDNISolone 4 MG TAB PO SCH ×2 (09:50→21:10)
[2017-04-18] MEDS: LISINOPRIL 10 MG TAB PO SCH (09:50)
[2017-04-18] MEDS: ASPIRIN EC 81 MG TABEC PO SCH (09:51)
[2017-04-18] MEDS: SODIUM CHLORIDE 0.9% FLUSH 10 ML FLUSH IV FLUSH SCH ×2 (09:51→21:11)
[2017-04-18] MEDS: SUCRALFATE 1 GM TAB PO SCH ×3 (09:51→16:19)
[2017-04-18] MEDS: TAMSULOSIN HCL 0.4 MG CAP PO SCH ×2 (09:51→21:09)
[2017-04-18] MEDS: METOPROLOL TARTRATE 25 MG TAB PO SCH ×2 (09:51→21:13)
[2017-04-18] MEDS: FAMOTIDINE 20 MG TAB PO SCH ×2 (09:51→21:09)
[2017-04-18] MEDS: GABAPENTIN 300 MG CAP PO SCH ×3 (09:51→17:47)
[2017-04-18] MEDS: TENOFOVIR DISOPROXIL FUMARATE 300 MG TAB PO SCH (09:51)
[2017-04-18] MEDS: INSULIN DETEMIR 100 UNITS/ML VIAL SQ SCH ×2 (09:53→21:09)
[2017-04-18] MEDS: PANTOPRAZOLE SOD 40 MG DELAYED RELEASE TAB PO SCH (09:54)
[2017-04-18] MEDS: BUDESONIDE-FORMOTEROL 160/4.5 MCG INHALER INH SCH ×2 (09:54→21:00)
[2017-04-18] MEDS: INSULIN ASPART SUPPLEMENTAL SCALE SQ SCH ×4 (09:54→21:00)
[2017-04-18 12:00] VITALS: BP 102/69; PULSE 85; RESP 20; TEMP 96.6; O2SAT 100
[2017-04-18] MEDS: FERROUS SULFATE 325 MG (65 MG ELEMENTAL IRON) TAB PO SCH ×2 (12:01→17:47)
--- NOTE | 2017-04-18 15:04 | HHI.PR ---
Subjective Remarks Patient reports he is doing okay. His pain is slightly better but no significant change. Objective Vitals Vital Signs Date Time Temp Pulse Resp B/P (MAP) Pulse Ox O2 Delivery O2 Flow Rate FiO2 04/18/17 12:00 96.6 85 20 102/69 (80) 100 04/18/17 08:00 96.3 79 20 120/78 (92) 100 04/18/17 04:00 97.0 78 18 140/73 (95) 95 04/18/17 00:00 98.9 81 20 120/72 (88) 95 04/17/17 19:00 97.0 91 20 125/71 (89) 98 04/17/17 16:00 98.6 81 18 105/61 (76) 98 I/O 04/17/17 04/17/17 04/17/17 04/18/17 04/18/17 04/18/17 07:00 15:00 23:00 07:00 15:00 23:00 Intake Total 50 ml 290 ml Output Total 1800 ml 425 ml 1125 ml 570 ml Balance 50 ml -1510 ml -425 ml -1125 ml -570 ml Intake Oral 240 ml IV Total 50 ml 50 ml Output Urine Total 1800 ml 425 ml 1125 ml 550 ml Drainage Total 0 ml 20 ml # Voids 6 1 # Bowel Movements 2 1 Result Diagram: 04/17/1754404/17/17544 Objective Remarks GENERAL: Patient is in no apparent distress. CARDIOVASCULAR: Normal rate and regular rhythm without murmurs, gallops, or rubs. RESPIRATORY: Good respiratory efforts. Breath sounds equal and clear to auscultation bilaterally. GASTROINTESTINAL: Abdomen soft, non-tender, non-distended. Normal active bowel sounds MUSCULOSKELETAL: Reports tenderness to palpation over the lumbar area. Drain is in place. It is draining minimal serous sanguinous fluid NEURO: Alert & Oriented x4 to person, place, time, situation. Moves all ext x4 PSYCH: Appropriate mood and affect. A/P Problem List: (1) Psoas abscess ICD Code: K68.12 - Psoas muscle abscess Status: Acute (2) Osteomyelitis of vertebra of lumbosacral region ICD Code: M46.27 - Osteomyelitis of vertebra, lumbosacral region Status: Acute (3) Hepatitis B ICD Code: B19.10 - Unspecified viral hepatitis B without hepatic coma Status: Acute (4) Hepatitis C ICD Code: B19.20 - Hepatitis C virus infection Status: Chronic (5) Liver cirrhosis ICD Code: K74.60 - Unspecified cirrhosis of liver (6) COPD (chronic obstructive pulmonary disease) ICD Code: J44.9 - Chronic obstructive pulmonary disease, unspecified (7) Chronic obstructive pulmonary disease ICD Code: J44.9 - Chronic obstructive pulmonary disease Status: Chronic Assessment and Plan 67-year-old male admitted from [facility] for worsening discitis, osteomyelitis, new psoas muscle abscess. Worsening discitis, new psoas abscess. - Patient is status post L1/L2 laminectomy and evacuation of lumbar spinal epidural abscess on 04/[address] Fitzgerald. - Neurosurgery following. Infectious disease consulted on the patient yesterday and recommended abscess drainage and cultures. - Patient status post CT-guided drainage of abscess on 04/16/17. We'll need to monitor cultures - Continue IV Ancef every 8 hours per ID. - Continue pain controlled with schedule Oramorph 30 mg Dilaudid 4 mg by mouth as needed. - On methylprednisone taper. Continue to taper - Physical therapy following. Hepatitis B and liver cirrhosis: seen by GI on previous admission -Continue on current treatment of tenofovir for treatment of hepatitis B. COPD: chronic, stable -Continue DuoNeb PRN. Diabetes mellitus: chronic, stable, BG fairly well controlled -Levemir 8 units subcutaneous twice a day. -Monitor Accu-Cheks and cover with low dose NovoLog SSI Hypertension: Continue chronic home medications DVT Prophylaxis: Heparin Mnoique Min MD Apr 18, 2017 15:04
[2017-04-18 16:00] VITALS: BP 111/72; PULSE 80; RESP 19; TEMP 97; O2SAT 99
[2017-04-18] MEDS: HEPARIN SODIUM - SQ 10,000 UNITS/ML VIAL SQ SCH (16:19)
[2017-04-18 20:37] VITALS: BP 95/51; PULSE 90; RESP 16; TEMP 99.4; O2SAT 95
[2017-04-19 00:07] VITALS: BP 105/57; PULSE 89; RESP 16; TEMP 99.3; O2SAT 100
[2017-04-19] MEDS: HYDROmorphone HCL 4 MG TAB PO PRN ×6 (01:05→21:45)
[2017-04-19 04:44] VITALS: BP 99/64; PULSE 84; RESP 16; TEMP 98.8; O2SAT 100
[2017-04-19] MEDS: ceFAZolin 2 GM/50 ML BAG IV SCH ×3 (05:24→21:42)
[2017-04-19] MEDS: MORPHINE SULFATE 15 MG CONTROLLED RELEASE TAB PO SCH ×3 (05:24→21:02)
[2017-04-19] MEDS: HEPARIN SODIUM - SQ 10,000 UNITS/ML VIAL SQ SCH ×2 (05:24→17:02)
[2017-04-19 06:25] LABS: HEMATOCRIT 27.5 % (39.0-51.0); MEAN CELL VOLUME 80.4 FL (80.0-100.0); MEAN CORPUSCULAR HEMOGLOBIN 26.7 PG (27.0-34.0); MEAN CORPUSCULAR HGB CONC 33.2 % (32.0-36.0); PLATELET COUNT 183 TH/MM3 (150-450); RED BLOOD COUNT 3.42 MIL/MM3 (4.50-5.90); RED CELL DISTRIBUTION WIDTH 19.9 % (11.6-17.2); REVIEW FLAG FINAL; WHITE BLOOD COUNT 7.9 TH/MM3 (4.0-11.0)
[2017-04-19 07:01] LABS: POTASSIUM 4.5 MEQ/L (3.5-5.1)
[2017-04-19 08:00] VITALS: BP 105/67; PULSE 83; RESP 19; TEMP 98.4; O2SAT 100
[2017-04-19] MEDS: INSULIN ASPART SUPPLEMENTAL SCALE SQ SCH ×4 (08:00→21:03)
[2017-04-19] MEDS: LISINOPRIL 10 MG TAB PO SCH (09:00)
[2017-04-19] MEDS: amLODIPine BESYLATE 5 MG TAB PO SCH (09:00)
[2017-04-19] MEDS: SODIUM CHLORIDE 0.9% FLUSH 10 ML FLUSH IV FLUSH SCH ×2 (09:00→21:42)
[2017-04-19] MEDS: METOPROLOL TARTRATE 25 MG TAB PO SCH ×2 (09:00→21:02)
[2017-04-19] MEDS: INSULIN DETEMIR 100 UNITS/ML VIAL SQ SCH ×2 (09:10→21:03)
[2017-04-19] MEDS: SUCRALFATE 1 GM TAB PO SCH ×3 (09:11→17:02)
[2017-04-19] MEDS: TENOFOVIR DISOPROXIL FUMARATE 300 MG TAB PO SCH (09:11)
[2017-04-19] MEDS: GABAPENTIN 300 MG CAP PO SCH ×3 (09:11→17:03)
[2017-04-19] MEDS: ASPIRIN EC 81 MG TABEC PO SCH (09:12)
[2017-04-19] MEDS: GEMFIBROZIL 600 MG TAB PO SCH ×2 (09:12→17:03)
[2017-04-19] MEDS: PANTOPRAZOLE SOD 40 MG DELAYED RELEASE TAB PO SCH (09:12)
[2017-04-19] MEDS: TAMSULOSIN HCL 0.4 MG CAP PO SCH ×2 (09:12→21:01)
[2017-04-19] MEDS: FAMOTIDINE 20 MG TAB PO SCH ×2 (09:14→21:01)
[2017-04-19] MEDS: methylPREDNISolone 4 MG TAB PO SCH ×2 (09:14→21:07)
[2017-04-19] MEDS: BUDESONIDE-FORMOTEROL 160/4.5 MCG INHALER INH SCH ×2 (09:18→21:42)
[2017-04-19 12:00] VITALS: BP 113/73; PULSE 62; RESP 18; TEMP 97.3; O2SAT 96
[2017-04-19] MEDS: FERROUS SULFATE 325 MG (65 MG ELEMENTAL IRON) TAB PO SCH ×2 (12:41→17:03)
--- NOTE | 2017-04-19 12:55 | HHI.PR ---
Subjective Remarks Patient reports he is feeling better today. He is participating better with physical therapy. Pain is better controlled. Objective Vitals Vital Signs Date Time Temp Pulse Resp B/P (MAP) Pulse Ox O2 Delivery O2 Flow Rate FiO2 04/19/17 12:00 97.3 62 18 113/73 (86) 96 04/19/17 08:00 98.4 83 19 105/67 (80) 100 04/19/17 04:44 98.8 84 16 99/64 (76) 100 04/19/17 00:07 99.3 89 16 105/57 (73) 100 04/18/17 20:37 99.4 90 16 95/51 (66) 95 04/18/17 16:00 97.0 80 19 111/72 (85) 99 I/O 04/18/17 04/18/17 04/18/17 04/19/17 04/19/17 04/19/17 07:00 15:00 23:00 07:00 15:00 23:00 Intake Total 1080 ml Output Total 1125 ml 570 ml 700 ml Balance -1125 ml -570 ml 380 ml Intake Oral 1080 ml Output Urine Total 1125 ml 550 ml 700 ml Drainage Total 20 ml # Voids 1 2 # Bowel Movements 1 Result Diagram: 04/19/17 0602 04/19/17 0602 Objective Remarks GENERAL: Patient is in no apparent distress. CARDIOVASCULAR: Normal rate and regular rhythm without murmurs, gallops, or rubs. RESPIRATORY: Good respiratory efforts. Breath sounds equal and clear to auscultation bilaterally. GASTROINTESTINAL: Abdomen soft, non-tender, non-distended. Normal active bowel sounds MUSCULOSKELETAL: Reports tenderness to palpation over the lumbar area. Drain is in place. It is draining minimal serous sanguinous fluid NEURO: Alert & Oriented x4 to person, place, time, situation. Moves all ext x4 PSYCH: Appropriate mood and affect. A/P Problem List: (1) Psoas abscess ICD Code: K68.12 - Psoas muscle abscess Status: Acute (2) Osteomyelitis of vertebra of lumbosacral region ICD Code: M46.27 - Osteomyelitis of vertebra, lumbosacral region Status: Acute (3) Hepatitis B ICD Code: B19.10 - Unspecified viral hepatitis B without hepatic coma Status: Acute (4) Hepatitis C ICD Code: B19.20 - Hepatitis C virus infection Status: Chronic (5) Liver cirrhosis ICD Code: K74.60 - Unspecified cirrhosis of liver (6) COPD (chronic obstructive pulmonary disease) ICD Code: J44.9 - Chronic obstructive pulmonary disease, unspecified (7) Chronic obstructive pulmonary disease ICD Code: J44.9 - Chronic obstructive pulmonary disease Status: Chronic Assessment and Plan 67-year-old male admitted from [facility] for worsening discitis, osteomyelitis, new psoas muscle abscess. Worsening discitis, new psoas abscess. - Patient is status post L1/L2 laminectomy and evacuation of lumbar spinal epidural abscess on 04/[address] Fitzgerald. - Neurosurgery following. Infectious disease consulted on the patient yesterday and recommended abscess drainage and cultures. - Patient status post CT-guided drainage of abscess on 04/16/17. We'll need to monitor cultures - Continue IV Ancef every 8 hours per ID. - Continue pain controlled with schedule Oramorph 30 mg Dilaudid 4 mg by mouth as needed. - On methylprednisone taper. Continue to taper - Physical therapy following. Participating better. Hepatitis B and liver cirrhosis: seen by GI on previous admission -Continue on current treatment of tenofovir for treatment of hepatitis B. COPD: chronic, stable -Continue DuoNeb PRN. Diabetes mellitus: chronic, stable, BG fairly well controlled -Levemir 8 units subcutaneous twice a day. -Monitor Accu-Cheks and cover with low dose NovoLog SSI Hypertension: Continue chronic home medications DVT Prophylaxis: Heparin Monique Min MD Apr 19, 2017 12:55
[2017-04-19 16:00] VITALS: BP 111/61; PULSE 82; RESP 18; TEMP 98.1; O2SAT 95
[2017-04-19 20:40] VITALS: BP 130/80; PULSE 69; RESP 20; TEMP 98.8; O2SAT 98
[2017-04-20 00:15] VITALS: BP 128/88; PULSE 72; RESP 21; TEMP 97.6; O2SAT 98
[2017-04-20] MEDS: HYDROmorphone HCL 4 MG TAB PO PRN ×4 (01:44→21:19)
[2017-04-20] MEDS: HEPARIN SODIUM - SQ 10,000 UNITS/ML VIAL SQ SCH ×2 (04:13→17:45)
[2017-04-20] MEDS: ceFAZolin 2 GM/50 ML BAG IV SCH ×3 (04:13→21:16)
[2017-04-20 04:50] VITALS: BP 125/85; PULSE 69; RESP 20; TEMP 98; O2SAT 99
[2017-04-20] MEDS: GEMFIBROZIL 600 MG TAB PO SCH ×2 (06:00→17:43)
[2017-04-20] MEDS: MORPHINE SULFATE 15 MG CONTROLLED RELEASE TAB PO SCH ×3 (06:01→21:15)
[2017-04-20 08:00] VITALS: BP 118/71; PULSE 84; RESP 18; TEMP 98.4; O2SAT 99
[2017-04-20] MEDS: INSULIN ASPART SUPPLEMENTAL SCALE SQ SCH ×4 (08:00→21:46)
[2017-04-20] MEDS: BUDESONIDE-FORMOTEROL 160/4.5 MCG INHALER INH SCH ×2 (08:43→21:46)
[2017-04-20] MEDS: ASPIRIN EC 81 MG TABEC PO SCH (08:44)
[2017-04-20] MEDS: METOPROLOL TARTRATE 25 MG TAB PO SCH ×2 (08:44→21:15)
[2017-04-20] MEDS: PANTOPRAZOLE SOD 40 MG DELAYED RELEASE TAB PO SCH (08:45)
[2017-04-20] MEDS: FAMOTIDINE 20 MG TAB PO SCH ×2 (08:45→21:15)
[2017-04-20] MEDS: GABAPENTIN 300 MG CAP PO SCH ×3 (08:45→17:43)
[2017-04-20] MEDS: SUCRALFATE 1 GM TAB PO SCH ×3 (08:46→17:43)
[2017-04-20] MEDS: TENOFOVIR DISOPROXIL FUMARATE 300 MG TAB PO SCH (08:46)
[2017-04-20] MEDS: methylPREDNISolone 4 MG TAB PO SCH ×2 (08:46→21:15)
[2017-04-20] MEDS: TAMSULOSIN HCL 0.4 MG CAP PO SCH ×2 (08:46→21:15)
[2017-04-20] MEDS: SODIUM CHLORIDE 0.9% FLUSH 10 ML FLUSH IV FLUSH SCH ×2 (08:48→21:15)
[2017-04-20] MEDS: INSULIN DETEMIR 100 UNITS/ML VIAL SQ SCH ×2 (08:48→21:46)
--- NOTE | 2017-04-20 11:25 | HHI.PR ---
Subjective Remarks Patient has worsening pain and is unable to lift the left leg off the bed due to severe pain. Drain with minimal output. Objective Vitals Vital Signs Date Time Temp Pulse Resp B/P (MAP) Pulse Ox O2 Delivery O2 Flow Rate FiO2 04/20/17 08:00 98.4 84 18 118/71 (87) 99 04/20/17 04:50 98.0 69 20 125/85 (98) 99 04/20/17 00:15 97.6 72 21 128/88 (101) 98 04/19/17 20:40 98.8 69 20 130/80 (97) 98 04/19/17 16:00 98.1 82 18 111/61 (78) 95 04/19/17 12:00 97.3 62 18 113/73 (86) 96 I/O 04/19/17 04/19/17 04/19/17 04/20/17 04/20/17 04/20/17 07:00 15:00 23:00 07:00 15:00 23:00 Intake Total 760 ml 750 ml 950 ml Output Total 750 ml 1200 ml 1400 ml Balance 10 ml -450 ml -450 ml Intake Oral 760 ml 750 ml 950 ml Output Urine Total 750 ml 1200 ml 1400 ml # Voids 2 # Bowel Movements 1 0 0 Result Diagram: 04/19/17 0602 04/19/17 0602 Objective Remarks GENERAL: Patient is in no apparent distress. CARDIOVASCULAR: Normal rate and regular rhythm without murmurs, gallops, or rubs. RESPIRATORY: Good respiratory efforts. Breath sounds equal and clear to auscultation bilaterally. GASTROINTESTINAL: Abdomen soft, non-tender, non-distended. Normal active bowel sounds MUSCULOSKELETAL: Reports tenderness to palpation over the lumbar area. Drain is in place. It is draining minimal serous sanguinous fluid. NEURO: Alert & Oriented x4 to person, place, time, situation. Moves all ext but unable to lift the left leg off the bed due to pain. PSYCH: Appropriate mood and affect. A/P Problem List: (1) Psoas abscess ICD Code: K68.12 - Psoas muscle abscess Status: Acute (2) Osteomyelitis of vertebra of lumbosacral region ICD Code: M46.27 - Osteomyelitis of vertebra, lumbosacral region Status: Acute (3) Hepatitis B ICD Code: B19.10 - Unspecified viral hepatitis B without hepatic coma Status: Acute (4) Hepatitis C ICD Code: B19.20 - Hepatitis C virus infection Status: Chronic (5) Liver cirrhosis ICD Code: K74.60 - Unspecified cirrhosis of liver (6) COPD (chronic obstructive pulmonary disease) ICD Code: J44.9 - Chronic obstructive pulmonary disease, unspecified (7) Chronic obstructive pulmonary disease ICD Code: J44.9 - Chronic obstructive pulmonary disease Status: Chronic Assessment and Plan 67-year-old male admitted from [facility] for worsening discitis, osteomyelitis, new psoas muscle abscess. Patient admitted to the medical floor for abscess drainage. Worsening discitis, new psoas abscess. - Patient is status post L1/L2 laminectomy and evacuation of lumbar spinal epidural abscess on 04/[address] Fitzgerald. - Neurosurgery followed the patient at [place]. Infectious disease consulted on the patient yesterday and recommended abscess drainage and cultures. - Patient status post CT-guided drainage of abscess on 04/16/17. We'll need to monitor cultures - Continue IV Ancef every 8 hours per ID. - Continue pain controlled with schedule Oramorph 30 mg Dilaudid 4 mg by mouth as needed. - On methylprednisone taper. Continue to taper - Physical therapy following. - Worsening pain. Repeat Abd/Pelvis CT Hepatitis B and liver cirrhosis: seen by GI on previous admission -Continue on current treatment of tenofovir for treatment of hepatitis B. COPD: chronic, stable -Continue DuoNeb PRN. Diabetes mellitus: chronic, stable, BG fairly well controlled -Levemir 8 units subcutaneous twice a day. -Monitor Accu-Cheks and cover with low dose NovoLog SSI Hypertension: Continue chronic home medications DVT Prophylaxis: Heparin Monique Min MD Apr 20, 2017 11:25
[2017-04-20 12:09] VITALS: BP 135/78; PULSE 79; RESP 18; TEMP 97.7; O2SAT 98
[2017-04-20] MEDS: FERROUS SULFATE 325 MG (65 MG ELEMENTAL IRON) TAB PO SCH ×2 (13:57→17:42)
--- NOTE | 2017-04-20 14:03 | RADRPT ---
EXAM DATE/TIME: 04/20/2017 13:12 [place] COMPARISON: CT ABDOMEN & PELVIS W/O CONTRAST, April 11, 2017, 17:23. INDICATIONS : Patient had abscess drain placed 4 days ago, states worsening diffuse abdominal pain since. ORAL CONTRAST: No oral contrast ingested. RADIATION DOSE: 13.15 CTDIvol (mGy) MEDICAL HISTORY : Hepatitis C. Hypertension. Deep venous thrombosis.Carcinoma, bladder. Cirrhosis. Pancreatitis. GERD. Psoas abscess. SURGICAL HISTORY : Appendectomy. Colon resection.Cholecystectomy.Back surgery. ENCOUNTER: Initial ACUITY: 4 - 6 days PAIN SCALE: 10/10 LOCATION: All quadrants TECHNIQUE: Volumetric scanning of the abdomen and pelvis was performed. Using automated exposure control and ad justment of the mA and/or kV according to patient size, radiation dose was kept as low as reasonably achievable to obtain optimal diagnostic quality images. DICOM format image data is available electro nically for review and comparison. FINDINGS: LOWER LUNGS: Mild bibasilar airspace consolidation likely reflecting atelectasis. LIVER: The liver is grossly unremarkable. Gallbladder is surgically absent. SPLEEN: Spleen is enlarged measuring up to 16.6 cm. PANCREAS: Within normal limits. KIDNEYS: Grossly symmetrical in size without radiopaque foreign calculi or hydronephrosis. No significant cont our deforming abnormality. ADRENAL GLANDS: Within normal limits. VASCULAR: Diffuse atherosclerotic calcifications of the abdominal aorta. BOWEL/MESENTERY: Surgical suture line in the ascending colon. Bowel appears grossly unremarkable without evidence for obstruction. ABDOMINAL WALL: Intact. RETROPERITONEUM: Interval placement of pigtail drainage catheter in the left psoas fluid collection. Catheter is well- positioned and no significant residual collection as demonstrated by CT. BLADDER: No wall thickening or mass. REPRODUCTIVE: Within normal limits. INGUINAL: There is no lymphadenopathy or hernia. MUSCULOSKELETAL: Slightly progressive endplate destructive changes at L1 to with associated paraspinal phlegmonous diya nges which appear unchanged from prior exam. CONCLUSION: 1. Slightly progressed endplate destruction at L1-2. Otherwise, stable L1-2 discitis/osteomyelitis wi th stable anterior paraspinal phlegmon. 2. Status post left psoas abscess drainage catheter placement. Catheter is well-positioned and there is no significant residual collection in the left psoas muscle. 3. No new significant focal fluid collections or other acute abnormality. 4. Stable ancillary findings as above. Fredy Guzmán MD on April 20, 2017 at 13:55 Board Certified Radiologist. This report was verified electronically.
[2017-04-20 16:00] VITALS: BP 117/72; PULSE 72; RESP 18; TEMP 97.3; O2SAT 96
[2017-04-20 21:15] VITALS: BP 115/76; PULSE 88; RESP 18; TEMP 98.6; O2SAT 100
[2017-04-21] VITALS: BP 118/75; PULSE 80; RESP 19; TEMP 98.1; O2SAT 100
[2017-04-21 04:50] VITALS: BP 120/66; PULSE 69; RESP 21; TEMP 98; O2SAT 100
[2017-04-21] MEDS: MORPHINE SULFATE 15 MG CONTROLLED RELEASE TAB PO SCH ×3 (05:15→22:19)
[2017-04-21] MEDS: HEPARIN SODIUM - SQ 10,000 UNITS/ML VIAL SQ SCH ×2 (05:15→18:02)
[2017-04-21] MEDS: ceFAZolin 2 GM/50 ML BAG IV SCH ×3 (05:16→18:55)
[2017-04-21] MEDS: HYDROmorphone HCL 4 MG TAB PO PRN ×5 (05:25→22:20)
[2017-04-21] MEDS: GEMFIBROZIL 600 MG TAB PO SCH ×2 (06:52→18:03)
[2017-04-21 08:00] VITALS: BP 133/80; PULSE 81; RESP 18; TEMP 98.9; O2SAT 100
[2017-04-21] MEDS: FAMOTIDINE 20 MG TAB PO SCH ×2 (09:05→22:19)
[2017-04-21] MEDS: TENOFOVIR DISOPROXIL FUMARATE 300 MG TAB PO SCH (09:06)
[2017-04-21] MEDS: INSULIN DETEMIR 100 UNITS/ML VIAL SQ SCH ×2 (09:06→22:22)
[2017-04-21] MEDS: ASPIRIN EC 81 MG TABEC PO SCH (09:06)
[2017-04-21] MEDS: methylPREDNISolone 4 MG TAB PO SCH ×2 (09:06→22:20)
[2017-04-21] MEDS: TAMSULOSIN HCL 0.4 MG CAP PO SCH ×2 (09:06→22:19)
[2017-04-21] MEDS: SUCRALFATE 1 GM TAB PO SCH ×3 (09:06→18:03)
[2017-04-21] MEDS: METOPROLOL TARTRATE 25 MG TAB PO SCH ×2 (09:06→22:19)
[2017-04-21] MEDS: PANTOPRAZOLE SOD 40 MG DELAYED RELEASE TAB PO SCH (09:06)
[2017-04-21] MEDS: GABAPENTIN 300 MG CAP PO SCH ×3 (09:06→18:02)
[2017-04-21] MEDS: SODIUM CHLORIDE 0.9% FLUSH 10 ML FLUSH IV FLUSH SCH ×2 (09:07→22:24)
[2017-04-21] MEDS: INSULIN ASPART SUPPLEMENTAL SCALE SQ SCH ×4 (09:07→22:23)
[2017-04-21] MEDS: BUDESONIDE-FORMOTEROL 160/4.5 MCG INHALER INH SCH ×2 (09:07→22:24)
[2017-04-21 12:00] VITALS: BP 109/76; PULSE 80; RESP 18; TEMP 99; O2SAT 99
[2017-04-21] MEDS: CYCLOBENZAPRINE HCL 10 MG TAB PO PRN ×2 (12:22→22:19)
[2017-04-21] MEDS: FERROUS SULFATE 325 MG (65 MG ELEMENTAL IRON) TAB PO SCH ×2 (12:23→18:03)
--- NOTE | 2017-04-21 12:55 | HHI.PR ---
Subjective Remarks Patient reports lower back pain is unchanged. No fevers or chills. Objective Vitals Vital Signs Date Time Temp Pulse Resp B/P (MAP) Pulse Ox O2 Delivery O2 Flow Rate FiO2 04/21/17 08:00 98.9 81 18 133/80 (97) 100 04/21/17 04:50 98.0 69 21 120/66 (84) 100 04/21/17 00:00 98.1 80 19 118/75 (89) 100 04/20/17 21:15 98.6 88 18 115/76 (89) 100 04/20/17 16:00 97.3 72 18 117/72 (87) 96 I/O 04/20/17 04/20/17 04/20/17 04/21/17 04/21/17 04/21/17 07:00 15:00 23:00 07:00 15:00 23:00 Intake Total 950 ml 560 ml 875 ml 600 ml Output Total 1400 ml 850 ml 815 ml 850 ml 550 ml Balance -450 ml -290 ml 60 ml -250 ml -550 ml Intake Oral 950 ml 560 ml 875 ml 600 ml Output Urine Total 1400 ml 850 ml 800 ml 850 ml 550 ml Drainage Total 15 ml # Bowel Movements 0 0 0 0 Result Diagram: 04/19/17 0602 04/19/17 0602 Imaging Last Impressions Abdomen/Pelvis CT 04/20/17 0000 Signed Impressions: Service Date/Time: Thursday, April 20, 2017 13:12 - CONCLUSION: 1. Slightly progressed endplate destruction at L1-2. Otherwise, stable L1-2 discitis/osteomyelitis with stable anterior paraspinal phlegmon. 2. Status post left psoas abscess drainage catheter placement. Catheter is well-positioned and there is no significant residual collection in the left psoas muscle. 3. No new significant focal fluid collections or other acute abnormality. 4. Stable ancillary findings as above. Fredy Guzmán MD Objective Remarks GENERAL: Patient is in no apparent distress. CARDIOVASCULAR: Normal rate and regular rhythm without murmurs, gallops, or rubs. RESPIRATORY: Good respiratory efforts. Breath sounds equal and clear to auscultation bilaterally. GASTROINTESTINAL: Abdomen soft, non-tender, non-distended. Normal active bowel sounds MUSCULOSKELETAL: Reports tenderness to palpation over the lumbar area. Drain is in place. It is draining minimal serous sanguinous fluid. NEURO: Alert & Oriented x4 to person, place, time, situation. Moves all ext but unable to lift the left leg off the bed due to pain. PSYCH: Appropriate mood and affect. A/P Problem List: (1) Psoas abscess ICD Code: K68.12 - Psoas muscle abscess Status: Acute (2) Osteomyelitis of vertebra of lumbosacral region ICD Code: M46.27 - Osteomyelitis of vertebra, lumbosacral region Status: Acute (3) Hepatitis B ICD Code: B19.10 - Unspecified viral hepatitis B without hepatic coma Status: Acute (4) Hepatitis C ICD Code: B19.20 - Hepatitis C virus infection Status: Chronic (5) Liver cirrhosis ICD Code: K74.60 - Unspecified cirrhosis of liver (6) COPD (chronic obstructive pulmonary disease) ICD Code: J44.9 - Chronic obstructive pulmonary disease, unspecified (7) Chronic obstructive pulmonary disease ICD Code: J44.9 - Chronic obstructive pulmonary disease Status: Chronic Assessment and Plan 67-year-old male admitted from [facility] for worsening discitis, osteomyelitis, new psoas muscle abscess. Patient admitted to the medical floor for abscess drainage and treatment. Worsening discitis, new psoas abscess. - Patient is status post L1/L2 laminectomy and evacuation of lumbar spinal epidural abscess on 04/[address] Fitzgerald. - Neurosurgery followed the patient at [place]. Infectious disease consulted on the patient yesterday and recommended abscess drainage and cultures. - Patient status post CT-guided drainage of abscess on 04/16/17. We'll need to monitor cultures - Continue IV Ancef every 8 hours per ID. - Continue pain controlled with schedule Oramorph 30 mg Dilaudid 4 mg by mouth as needed. - On methylprednisone taper. Continue to taper - Physical therapy following. - Worsening pain. Repeat Abd/Pelvis CT showed slightly increased endplate destruction at L1 and L2. The left so last abscess drainage catheter is in place. No new fluid collection noted. - Advised RN to notify neurosurgery the patient's symptoms are not improving and patient requesting reconsultation. - Continue PT efforts. Hepatitis B and liver cirrhosis: seen by GI on previous admission -Continue on current treatment of tenofovir for treatment of hepatitis B. COPD: chronic, stable -Continue DuoNeb PRN. Diabetes mellitus: chronic, stable, BG fairly well controlled -Levemir 8 units subcutaneous twice a day. -Monitor Accu-Cheks and cover with low dose NovoLog SSI Hypertension: Continue chronic home medications DVT Prophylaxis: Heparin Monique Min MD Apr 21, 2017 12:55
[2017-04-21 16:00] VITALS: BP 113/70; PULSE 84; RESP 18; TEMP 99.3; O2SAT 100
[2017-04-21 19:55] VITALS: BP 135/75; PULSE 86; TEMP 97.7; O2SAT 100
[2017-04-22 01:03] VITALS: BP 137/73; PULSE 91; RESP 20; TEMP 98.2; O2SAT 99
[2017-04-22] MEDS: HYDROmorphone HCL 4 MG TAB PO PRN ×4 (02:07→16:33)
[2017-04-22] MEDS: ceFAZolin 2 GM/50 ML BAG IV SCH ×2 (05:17→10:48)
[2017-04-22] MEDS: MORPHINE SULFATE 15 MG CONTROLLED RELEASE TAB PO SCH ×2 (05:17→12:53)
[2017-04-22] MEDS: HEPARIN SODIUM - SQ 10,000 UNITS/ML VIAL SQ SCH ×2 (05:18→16:33)
[2017-04-22 05:30] VITALS: BP 107/68; PULSE 77; RESP 20; TEMP 98.3; O2SAT 100
[2017-04-22] MEDS: GEMFIBROZIL 600 MG TAB PO SCH ×2 (06:26→16:33)
[2017-04-22 08:33] VITALS: BP 124/69; PULSE 82; RESP 20; TEMP 98.1; O2SAT 100
[2017-04-22] MEDS: FAMOTIDINE 20 MG TAB PO SCH (09:01)
[2017-04-22] MEDS: GABAPENTIN 300 MG CAP PO SCH ×3 (09:01→16:33)
[2017-04-22] MEDS: ASPIRIN EC 81 MG TABEC PO SCH (09:01)
[2017-04-22] MEDS: TAMSULOSIN HCL 0.4 MG CAP PO SCH (09:01)
[2017-04-22] MEDS: methylPREDNISolone 4 MG TAB PO SCH (09:02)
[2017-04-22] MEDS: TENOFOVIR DISOPROXIL FUMARATE 300 MG TAB PO SCH (09:02)
[2017-04-22] MEDS: METOPROLOL TARTRATE 25 MG TAB PO SCH (09:02)
[2017-04-22] MEDS: PANTOPRAZOLE SOD 40 MG DELAYED RELEASE TAB PO SCH (09:02)
[2017-04-22] MEDS: INSULIN DETEMIR 100 UNITS/ML VIAL SQ SCH (09:02)
[2017-04-22] MEDS: INSULIN ASPART SUPPLEMENTAL SCALE SQ SCH ×3 (09:03→16:34)
[2017-04-22] MEDS: BUDESONIDE-FORMOTEROL 160/4.5 MCG INHALER INH SCH (09:03)
[2017-04-22] MEDS: SODIUM CHLORIDE 0.9% FLUSH 10 ML FLUSH IV FLUSH SCH (09:03)
[2017-04-22] MEDS: SUCRALFATE 1 GM TAB PO SCH ×3 (09:04→16:34)
[2017-04-22] MEDS: FERROUS SULFATE 325 MG (65 MG ELEMENTAL IRON) TAB PO SCH ×2 (10:47→16:33)
[2017-04-22 11:53] VITALS: BP_SYST 127; BP_SYST 144; BP_DIAS 65; BP_DIAS 80; PULSE 76; PULSE 80; RESP 18; RESP 20; TEMP 97.8; O2SAT 100; O2SAT 96
--- NOTE | 2017-04-22 13:40 | HHI.DS ---
Discharge Summary Admission Date Apr 16, 2017 at 17:07 Discharge Date: Apr 22, 2017 Admitting Diagnosis (1) Psoas abscess ICD Code: K68.12 - Psoas muscle abscess Status: Acute (2) Osteomyelitis of vertebra of lumbosacral region ICD Code: M46.27 - Osteomyelitis of vertebra, lumbosacral region Status: Acute (3) Hepatitis B ICD Code: B19.10 - Unspecified viral hepatitis B without hepatic coma Status: Acute (4) Hepatitis C ICD Code: B19.20 - Hepatitis C virus infection Status: Chronic (5) Liver cirrhosis ICD Code: K74.60 - Unspecified cirrhosis of liver (6) COPD (chronic obstructive pulmonary disease) ICD Code: J44.9 - Chronic obstructive pulmonary disease, unspecified (7) Chronic obstructive pulmonary disease ICD Code: J44.9 - Chronic obstructive pulmonary disease Status: Chronic Procedures Psoas abscess aspiration and drain placement Brief History - From Admission 67-year-old male with a medical history significant for diabetes, hypertension, hepatitis B and C, liver cirrhosis, and ongoing lumbar discitis/osteomyelitis/ epidural abscess. Patient was initially treated at [facility] and transferred to [facility] for comprehensive rehabilitation. However repeat imaging shows worsening discitis and psoas muscle abscess. Patient is readmitted to the medical floor for CT-guided drainage and continuing medical care. He has been followed by infectious disease and neurosurgery who both recommended drainage of abscesses. Patient is seen in his room prior to transfer. He reports persistent lower back pain radiating down his right leg. He denies any fevers or chills. CBC/BMP: 04/19/17 0602 04/19/17 0602 Imaging Last Impressions Abdomen/Pelvis CT 04/20/17 0000 Signed Impressions: Service Date/Time: Thursday, April 20, 2017 13:12 - CONCLUSION: 1. Slightly progressed endplate destruction at L1-2. Otherwise, stable L1-2 discitis/osteomyelitis with stable anterior paraspinal phlegmon. 2. Status post left psoas abscess drainage catheter placement. Catheter is well-positioned and there is no significant residual collection in the left psoas muscle. 3. No new significant focal fluid collections or other acute abnormality. 4. Stable ancillary findings as above. Fredy Guzmán MD PE at Discharge GENERAL: Patient is in no apparent distress. CARDIOVASCULAR: Normal rate and regular rhythm without murmurs, gallops, or rubs. RESPIRATORY: Good respiratory efforts. Breath sounds equal and clear to auscultation bilaterally. GASTROINTESTINAL: Abdomen soft, non-tender, non-distended. Normal active bowel sounds MUSCULOSKELETAL: Reports tenderness to palpation over the lumbar area. Drain is in place. It is draining minimal serous sanguinous fluid. NEURO: Alert & Oriented x4 to person, place, time, situation. Moves all ext but unable to lift the left leg off the bed due to pain. PSYCH: Appropriate mood and affect. Pt update on day of discharge Patient reports is feeling better. Neurosurgery planning to remove the drain and okay discharge to [facility] per nursing. Hospital Course 67-year-old male admitted from [facility] rehabilitation for worsening discitis, osteomyelitis, new psoas muscle abscess. Patient admitted to the medical floor for abscess drainage and treatment. Patient underwent aspiration of psoas abscess and a drain was placed. Neurosurgery and infectious disease followed the patient. He was continued on IV Ancef per infectious disease and pain management. Cultures from the abscess remain negative. Patient is discharged to [facility]. He should be followed by infectious disease and neurosurgery for continuing treatment as he undergoes rehabilitation. Other conditions treated include: Hepatitis B and liver cirrhosis: seen by GI on previous admission -Continue on current treatment of tenofovir for treatment of hepatitis B. COPD: chronic, stable Diabetes mellitus: chronic, stable, BG fairly well controlled -Levemir 8 units subcutaneous twice a day. -Monitor Accu-Cheks and cover with low dose NovoLog SSI Hypertension: Continue chronic home medications Pt Condition on Discharge: Stable Discharge Disposition: Rehab Inpatient Discharge Time: > 30 minutes Discharge Instructions DIET: Follow Instructions for: As Tolerated, No Restrictions Activities you can perform: Regular-No Restrictions Continued Medications: Acetaminophen (Eq Acetaminophen) 325 Mg Tab 650 MG PO Q4H PRN for Fever for 30 Days, #[address] (Aspirin DR) 81 Mg Tabdr 81 MG PO DAILY for 30 Days, TAB Budesonide-Formoterol Inh (Symbicort Inh) 160-4.5 Mcg/Act Aero 1 PUFF INH Q12HR, #1 INHALER 0 Refills Cefazolin Inj (Cefazolin Inj) 2 Gm/50 Ml Bagp 2 GM IV Q8H for Infection for 42 Days, BAG 0 Refills STOP Date 05/06/2017 Clonidine (Catapres) 0.1 Mg Tab 0.1 MG PO Q6H PRN for SBP> OR = 170, DBP> OR = 100 for 30 Days, #120 TAB Cyclobenzaprine (Flexeril) 10 Mg Tab 10 MG PO Q8H PRN for MUSCLE SPASM for 30 Days, #90 TAB Ferrous Sulfate (Ferosul) 325 Mg (65 Mg Iron) Tablet 325 MG PO BID@12,17 for 30 Days Gabapentin (Neurontin) 300 Mg Cap 300 MG PO TID for Pain Management, #90 CAP Gemfibrozil (Gemfibrozil) 600 Mg Tab 600 MG PO BIDAC, #60 TAB 0 Refills Take 30 minutes prior to breakfast and dinner. Hydromorphone (Dilaudid) 4 Mg Tab 4 MG PO Q4H PRN for Pain 1-10, #30 TAB Insulin Aspart Inj (Novolog Inj) 100 Unit/Ml Inj 1 UNITS SQ ACHS SLIDING SCALE for 30 Days, INJECTION Insulin Detemir Inj (Levemir Inj) 1,000 unit/ 10 ML Vial 8 UNITS SQ BID for 30 Days, INJECTION Do not mix with any other Insulin. Lidocaine (Lidoderm) 5 % Adh..patch 1 PATCH T-DERMAL DAILY for 30 Days Methylprednisolone (Medrol) 4 Mg Tab 4 MG PO DAILY@08, #1 TAB Metoprolol Tartrate (Metoprolol Tartrate) 25 Mg Tab 12.5 MG PO Q12HR for 30 Days, TAB Multivitamin with Folic Acid (Thera Tablet) 400 Mcg Tablet 1 TAB PO DAILY for 30 Days Carson-3 Fatty Acids (Fish Oil) 1,000 Mg Cap 1 CAP PO BID Sucralfate (Carafate) 1 Gram Tab 1 GM PO TIDAC for 30 Days, TAB Tamsulosin (Flomax) 0.4 Mg Cap 0.4 MG PO Q12HR for bph, #60 CAP Tenofovir disoproxil fumarate (Viread) 300 Mg Tab 300 MG PO DAILY for Infection, #30 TAB 10 Refills [Budeson-Formot 160-4.5 Mg Inh] () 60 PUFF AERO 1 PUFF INH Q12HR for 30 Days Discontinued Medications: Amlodipine (Norvasc) 5 Mg Tab 5 MG PO DAILY for Blood Pressure Management, #30 TAB Amlodipine (Norvasc) 10 Mg Tab 10 MG PO DAILY for 30 Days, TAB Famotidine (Famotidine) 20 Mg Tab 20 MG PO BID for Reflux, #60 TAB Gabapentin (Neurontin) 300 Mg Cap 600 MG PO TID for 30 Days, CAP Gemfibrozil (Lopid) 600 Mg Tab 600 MG PO BIDAC for 30 Days, TAB Take 30 minutes prior to breakfast and dinner Insulin Detemir Inj (Levemir Inj) 1,000 unit/ 10 ML Vial 10 UNITS SQ DAILY for Blood Sugar Management for 30 Days, INJECTION Do not mix with any other Insulin. Lisinopril (Lisinopril) 10 Mg Tab 10 MG PO DAILY, #30 TAB 0 Refills Lisinopril (Lisinopril) 10 Mg Tab 10 MG PO DAILY for 30 Days, TAB Methylprednisolone (Medrol) 4 Mg Tab 4 MG PO DAILY@08,12,18,21, #4 TAB Methylprednisolone (Medrol) 4 Mg Tab 4 MG PO DAILY@08,21, #2 TAB Methylprednisolone (Medrol) 4 Mg Tab 4 MG PO DAILY@08,12,21, #3 TAB Morphine ER (Morphine ER) 15 Mg Tab 45 MG PO Q12HR for Pain Management, #60 TAB Morphine ER (Morphine ER) 15 Mg Tab 30 MG PO Q8HR for 10 Days, TAB Morphine IR (Morphine IR) 15 Mg Tab 15 MG PO Q8HR PRN for Breakthrough pain for 10 Days, TAB Pantoprazole (Pantoprazole) 40 Mg Tab 40 MG PO DAILY for 30 Days, TAB Polyethylene Glycol 3350 Powder (Polyethylene Glycol 3350 Powder) 17 Gram Pow 17 GM PO DAILY for 1 Day Sennosides-Docusate Sodium (Gnp Senna Plus 8.6-50 mg) 8.6 Mg-50 Mg Tab 1 TAB PO BID for 30 Days, TAB Tamsulosin (Flomax) 0.4 Mg Cap 0.4 MG PO Q12HR for 30 Days, CAP Tenofovir disoproxil fumarate (Viread) 300 Mg Tab 300 MG PO DAILY for 30 Days, TAB Monique Min MD Apr 22, 2017 13:40
[2017-04-22 16:17] VITALS: BP 124/65; PULSE 90; RESP 20; TEMP 100; O2SAT 100
== END 2017-04-22 18:55 | DRG 862 ==
LOC: N05A 17:07
PROVIDERS: ADMIT Hospitalist; ATTEND Hospitalist
PROC: 0K9P30Z Drainage of Left Hip Muscle with Drainage Device, Percutaneous Approach (ICD-10-PCS; principal; 2017-04-16)
DX: T81.4XXA Infection following a procedure, initial encounter (principal); K68.12 Psoas muscle abscess; B19.10 Unspecified viral hepatitis B without hepatic coma; K74.60 Unspecified cirrhosis of liver; M46.26 Osteomyelitis of vertebra, lumbar region; J44.9 Chronic obstructive pulmonary disease, unspecified; I10 Essential (primary) hypertension; E11.9 Type 2 diabetes mellitus without complications; F17.210 Nicotine dependence, cigarettes, uncomplicated; G89.29 Other chronic pain; M46.46 Discitis, unspecified, lumbar region; B19.20 Unspecified viral hepatitis C without hepatic coma; Z79.4 Long term (current) use of insulin; Z85.51 Personal history of malignant neoplasm of bladder; Z86.718 Personal history of other venous thrombosis and embolism
CPT/HCPCS: 74176; 80048; 82948; 85025; 85027; J0690; J1642; J1644; J1815; J2250; J3010; J7509

== ENCOUNTER 2017-09-20 20:01 | Inpatient (IN) | payer MEDICARE, MEDICAID ==
[~2017-09-20] VITALS: Ht 185.4 cm; Wt 72.5 kg
[~2017-09-20 20:01] MED LIST changes: -AMLO5 PO; +BACL10TA PO; +Budeson-Formot 160-4.5 Mcg Inh INH; +Budeson-Formot 160-4.5 Mg Inh INH; -CEFA2SOL IV; -DOXY100T PO; +DULO1CAP PO; +ECASA81 PO; +FERR325T20 PO; -FISH1000 PO; -GEMF600T PO; +LIDO1ADH4 T-DERMAL; -LISI10TA3 PO; +METO100T PO; -MORP1TAB24 PO; +MSIR15 PO; +Megestrol Liq PO; +NOVOINJ2 SQ
[2017-09-20 20:39] VITALS: BP 194/98; PULSE 118; RESP 20; TEMP 98.8; O2SAT 100
[2017-09-20] MEDS ORDERED: SODIUM CHLORIDE 0.9% FLUSH 10 ML FLUSH IV FLUSH PRN (21:15)
[2017-09-20] MEDS ORDERED: ONDANSETRON HCL 4 MG/2 ML VIAL IVP ONE (21:15)
[2017-09-20] MEDS ORDERED: HYDROmorphone HCL PF 0.5 MG/0.5 ML SYRINGE IV PUSH ONE ×2 (21:15→23:30)
[2017-09-20] MEDS ORDERED: LORazepam 2 MG/ML VIAL IV PUSH ONE (21:30)
[2017-09-20 21:40] LABS: AUTOMATED NEUTROPHIL # 7.8 TH/MM3 (1.8-7.7); BASOPHIL % 0.2 % (0.0-2.0); EOSINOPHIL % 0.3 % (0.0-4.0); HEMATOCRIT 38.7 % (39.0-51.0); HEMOGLOBIN 13.1 GM/DL (13.0-17.0); LYMPH % 20.6 % (9.0-44.0); LYMPHOCYTE # 2.3 TH/MM3 (1.0-4.8); MEAN CELL VOLUME 83.1 FL (80.0-100.0); MEAN CORPUSCULAR HEMOGLOBIN 28.1 PG (27.0-34.0); MEAN CORPUSCULAR HGB CONC 33.8 % (32.0-36.0); MEAN PLATELET VOLUME 8.4 FL (7.0-11.0); MONO % 8.4 % (0.0-8.0); MONOCYTE # 0.9 TH/MM3 (0-0.9); NEUT % 70.5 % (16.0-70.0); PLATELET COUNT 176 TH/MM3 (150-450); RED BLOOD COUNT 4.65 MIL/MM3 (4.50-5.90); RED CELL DISTRIBUTION WIDTH 15.3 % (11.6-17.2); WHITE BLOOD COUNT 11.1 TH/MM3 (4.0-11.0)
[2017-09-20 21:55] LABS: ALBUMIN 3.6 GM/DL (3.4-5.0); AST (GOT) 215 U/L (15-37); BICARBONATE 20.4 MEQ/L (21.0-32.0); BLOOD UREA NITROGEN 18 MG/DL (7-18); CALCIUM 8.4 MG/DL (8.5-10.1); CHLORIDE 106 MEQ/L (98-107); GLOMERULAR FILTRATION RATE 61 ML/MIN (>89); GLUCOSE,RANDOM 226 MG/DL (74-106); SODIUM (NA) 135 MEQ/L (136-145)
[2017-09-20 21:56] LABS: ALT (GPT) 412 U/L (12-78)
[2017-09-20 21:58] LABS: ALKALINE PHOSPHATASE 191 U/L (45-117)
--- NOTE | 2017-09-20 22:08 | PD ---
HPI Chief Complaint: Abnormal Results Time Seen by Provider: 20:53 Travel History International Travel<30 days: No Contact w/Intl Traveler<30days: No Traveled to known affect area: No History of Present Illness HPI Patient is a 67-year-old male presenting to the emergency department for evaluation of back pain. Patient reports a history of chronic back pain however for the last 3 days he has had increasing weakness in his lower extremities, specifically the left lower leg. He denies any bladder or bowel continence, he denies any saddle paresthesia. He states he went to [facility] in [place] today, they found an abnormality on his CT scan and work on her transfer him here to [place]. Patient states it was going to take too long so he had a friend bring him. He denies any fever, chills, nausea , vomiting. Symptom onset was gradual, symptoms are moderate to severe nature. Pain is exacerbated with movement. He reports a history of osteomyelitis and discitis. PFSH Past Medical History Arthritis: Yes (RA) Cancer: Yes (Bladder Cancer) Cardiac Catheterization: Yes High Cholesterol: Yes Cirrhosis: Yes (END STAGE LIVER DISEASE) COPD: Yes Diabetes: Yes Deep Vein Thrombosis: Yes GERD: Yes Genitourinary: Yes Hepatitis: Yes (C) Hypertension: Yes Neurologic: Yes Immunizations Current: Yes Pancreatitis: Yes Radiation Therapy: No Renal Failure: No Seizures: No Sickle Cell Disease: No Sleep Apnea: No Thyroid Disease: No Ulcer: No Tetanus Vaccination: < 5 Years Influenza Vaccination: Yes Past Surgical History Abdominal Surgery: Yes (spleen reconstruction, bowel and colon resection) Appendectomy: Yes Body Medical Devices: METAL BAR IN LEFT HAND Cholecystectomy: Yes Joint Replacement: Yes Neurologic Surgery: Yes (BACK SURGERY X 2) Oral Surgery: Yes (Full dentures, only upper present with patient) Tympanostomy Tube: Yes Social History Alcohol Use: No Tobacco Use: Yes (5 cigs) Substance Use: Yes (Marijuana) Allergies-Medications (Allergen,Severity, Reaction): Coded Allergies: Iodinated Contrast- Oral and IV Dye (Unverified Allergy, Severe, rash/ flush, 06/04/17) butorphanol (Unverified Allergy, Severe, rash, 06/04/17) codeine (Unverified Allergy, Severe, breathing probs, 06/04/17) pentazocine (Unverified Allergy, Severe, breathing probs, 06/04/17) Reported Meds & Prescriptions Reported Meds & Active Scripts Active Duloxetine DR (Duloxetine HCl) 20 Mg Capdr 20 Mg PO DAILY Novolog Mix 70-30 FlexPen Inj (Insulin Aspart Protam-Asp 70-30 Inj) 300 Unit/3 Ml Pen 1 Units SQ SLIDING SCALE Dilaudid (Hydromorphone HCl) 4 Mg Tab 4 Mg PO Q6HR PRN Morphine IR (Morphine Sulfate) 15 Mg Tab 15 Mg PO BID PRN Metoprolol Tartrate 100 Mg Tab 100 Mg PO DAILY Famotidine 20 Mg Tab 20 Mg PO BID Neurontin (Gabapentin) 300 Mg Cap 300 Mg PO Q8HR Ferosul (Ferrous Sulfate) 325 Mg (65 Mg Iron) Tablet 325 Mg PO BID@12,17 Baclofen 10 Mg Tab 10 Mg PO Q12HR 30 Days Flomax (Tamsulosin HCl) 0.4 Mg Cap 0.4 Mg PO HS Levemir Inj (Insulin Detemir) 1,000 unit/ 10 ML Vial 8 Units SQ BID 30 Days Do not mix with any other Insulin. Symbicort Inh (Budesonide/Formoterol Fumarate) 160-4.5 Mcg/Act Aero 1 Puff INH Q12HR [Megestrol Liq] 400 MG/10 ML Susp 400 Mg PO DAILY 30 Days [Budeson-Formot 160-4.5 Mcg Inh] 60 PUFF Aero 1 Puff INH Q12HR [address] (Aspirin) 81 Mg Tabdr 81 Mg PO DAILY 30 Days Viread (Tenofovir Disoproxil Fumarate) 300 Mg Tab 300 Mg PO DAILY 30 Days Commode 3-in-1 (Device) 1 Mis Mis Ea .ROUTE DIRECTED Wheelchair (Device) 1 Mis Mis Ea .ROUTE DIRECTED Lidoderm (Lidocaine) 5 % Adh..patch 1 Patch T-DERMAL DAILY 30 Days [Budeson-Formot 160-4.5 Mg Inh] 60 PUFF Aero 1 Puff INH Q12HR 30 Days Wheelchair (Device) 1 Mis Mis Ea .ROUTE DIRECTED Commode 3-in-1 (Device) 1 Mis Mis Ea .ROUTE DIRECTED Walker Rolling/GetGo (Device) 1 Mis Mis Ea .ROUTE DIRECTED Review of Systems Except as stated in HPI: all other systems reviewed are Neg Musculoskeletal: Positive: Myalgias, Arthralgias, Pain Neurologic: Positive: Weakness, Paresthesia, Sensory Disturbance Physical Exam Narrative GENERAL: Thin, well-developed, alert male. Appears uncomfortable, no acute distress. SKIN: Warm and dry. HEAD: Atraumatic. Normocephalic. EYES: Pupils equal and round. No scleral icterus. No injection or drainage. ENT: No nasal bleeding or discharge. Mucous membranes pink and moist. NECK: Trachea midline. No JVD. CARDIOVASCULAR: Regular rate and rhythm. RESPIRATORY: No accessory muscle use. Clear to auscultation. Breath sounds equal bilaterally. GASTROINTESTINAL: Abdomen soft, non-tender, nondistended. Hepatic and splenic margins not palpable. MUSCULOSKELETAL: Extremities without clubbing, cyanosis, or edema. No obvious deformities. Tenderness to palpation over lower lumbar spine. RECTAL EXAM: No masses or tenderness, stool is brown. Normal rectal tone NEUROLOGICAL: Awake and alert. No obvious cranial nerve deficits. Motor grossly within normal limits upper extremities. Five out of 5 muscle strength in the arms and right legs. Left leg 4-5. Normal speech. Bilateral leg lift elicits pain in the lower back. PSYCHIATRIC: Appropriate mood and affect; insight and judgment normal. Data Data Last Documented VS Vital Signs Date Time Temp Pulse Resp B/P (MAP) Pulse Ox O2 Delivery O2 Flow Rate FiO2 09/20/17 23:31 87 15 127/84 (98) 100 Room Air 09/20/17 20:39 98.8 Orders Orders Complete Blood Count With Diff (09/20/17 21:06) Comprehensive Metabolic Panel (09/20/17 21:06) C-Reactive Protein (Crp) (09/20/17 21:06) Westergren Sedimentation Rate (09/20/17 21:06) Iv Access Insert/Monitor (09/20/17 21:06) Ecg Monitoring (09/20/17 21:06) Oximetry (09/20/17 21:06) Ondansetron Inj (Zofran Inj) (09/20/17 21:15) Sodium Chloride 0.9% Flush (Ns Flush) (09/20/17 21:15) Hydromorphone Pf Inj (Dilaudid Pf Inj) (09/20/17 21:15) Lorazepam Inj (Ativan Inj) (09/20/17 21:30) Mri L Spine W&W/O Contrast (09/20/17 ) Mri T Spine W & W/O Contrast (09/20/17 ) Gadodiamide Pf Inj (Omniscan Pf Inj) (09/20/17 22:45) Mri T Spine W & W/O Contrast (09/20/17 ) Hydromorphone Pf Inj (Dilaudid Pf Inj) (09/20/17 23:30) Vancomycin Inj (Vancomycin Inj) (09/20/17 23:45) Cefepime Inj (Maxipime Inj) (09/20/17 23:45) Potassium Chloride (Kcl) (09/20/17 23:45) Admit Order (Ed Use Only) (09/20/17 23:43) Consult Neurosurgery (09/20/17 ) Labs Laboratory Tests Test 09/20/17 21:25 White Blood Count 11.1 TH/MM3 Red Blood Count 4.65 MIL/MM3 Hemoglobin 13.1 GM/DL Hematocrit 38.7 % Mean Corpuscular Volume 83.1 FL Mean Corpuscular Hemoglobin 28.1 PG Mean Corpuscular Hemoglobin Concent 33.8 % Red Cell Distribution Width 15.3 % Platelet Count 176 TH/MM3 Mean Platelet Volume 8.4 FL Neutrophils (%) (Auto) 70.5 % Lymphocytes (%) (Auto) 20.6 % Monocytes (%) (Auto) 8.4 % Eosinophils (%) (Auto) 0.3 % Basophils (%) (Auto) 0.2 % Neutrophils # (Auto) 7.8 TH/MM3 Lymphocytes # (Auto) 2.3 TH/MM3 Monocytes # (Auto) 0.9 TH/MM3 Eosinophils # (Auto) 0.0 TH/MM3 Basophils # (Auto) 0.0 TH/MM3 CBC Comment DIFF FINAL Differential Comment Erythrocyte Sedimentation Rate 41 mm/hr Blood Urea Nitrogen 18 MG/DL Creatinine 1.20 MG/DL Random Glucose 226 MG/DL Total Protein 9.0 GM/DL Albumin 3.6 GM/DL Calcium Level 8.4 MG/DL Alkaline Phosphatase 191 U/L Aspartate Amino Transf (AST/SGOT) 215 U/L Alanine Aminotransferase (ALT/SGPT) 412 U/L Total Bilirubin 1.0 MG/DL Sodium Level 135 MEQ/L Potassium Level 3.2 MEQ/L Chloride Level 106 MEQ/L Carbon Dioxide Level 20.4 MEQ/L Anion Gap 9 MEQ/L Estimat Glomerular Filtration Rate 61 ML/MIN C-Reactive Protein 0.40 MG/DL MDM Medical Decision Making Medical Screen Exam Complete: Yes Emergency Medical Condition: Yes Interpretation(s) Vital Signs Date Time Temp Pulse Resp B/P (MAP) Pulse Ox O2 Delivery O2 Flow Rate FiO2 09/20/17 23:31 87 15 127/84 (98) 100 Room Air 09/20/17 21:33 Room Air 09/20/17 20:39 98.8 118 20 194/98 (130) 100 Last Impressions Thoracic Spine MRI 09/20/17 0000 Signed Impressions: Service Date/Time: Wednesday, September 20, 2017 22:06 - CONCLUSION: Severe findings in the lumbar spine. See that report for further details. small disc protrusions at multiple levels in the thoracic spine, none producing significant anatomic compromise. Vishal Osorio MD Lumbar Spine MRI 09/20/17 0000 Signed Impressions: Service Date/Time: Wednesday, September 20, 2017 22:06 - CONCLUSION: Pathologic process centered at the L1-2 disc space level with compromise of the adjacent vertebrae felt most probably related to discitis and osteomyelitis. See above discussion. Vishal Osorio MD Laboratory Tests Test 09/20/17 21:25 White Blood Count 11.1 TH/MM3 Red Blood Count 4.65 MIL/MM3 Hemoglobin 13.1 GM/DL Hematocrit 38.7 % Mean Corpuscular Volume 83.1 FL Mean Corpuscular Hemoglobin 28.1 PG Mean Corpuscular Hemoglobin Concent 33.8 % Red Cell Distribution Width 15.3 % Platelet Count 176 TH/MM3 Mean Platelet Volume 8.4 FL Neutrophils (%) (Auto) 70.5 % Lymphocytes (%) (Auto) 20.6 % Monocytes (%) (Auto) 8.4 % Eosinophils (%) (Auto) 0.3 % Basophils (%) (Auto) 0.2 % Neutrophils # (Auto) 7.8 TH/MM3 Lymphocytes # (Auto) 2.3 TH/MM3 Monocytes # (Auto) 0.9 TH/MM3 Eosinophils # (Auto) 0.0 TH/MM3 Basophils # (Auto) 0.0 TH/MM3 CBC Comment DIFF FINAL Differential Comment Erythrocyte Sedimentation Rate 41 mm/hr Blood Urea Nitrogen 18 MG/DL Creatinine 1.20 MG/DL Random Glucose 226 MG/DL Total Protein 9.0 GM/DL Albumin 3.6 GM/DL Calcium Level 8.4 MG/DL Alkaline Phosphatase 191 U/L Aspartate Amino Transf (AST/SGOT) 215 U/L Alanine Aminotransferase (ALT/SGPT) 412 U/L Total Bilirubin 1.0 MG/DL Sodium Level 135 MEQ/L Potassium Level 3.2 MEQ/L Chloride Level 106 MEQ/L Carbon Dioxide Level 20.4 MEQ/L Anion Gap 9 MEQ/L Estimat Glomerular Filtration Rate 61 ML/MIN C-Reactive Protein 0.40 MG/DL Vital Signs Date Time Temp Pulse Resp B/P (MAP) Pulse Ox O2 Delivery O2 Flow Rate FiO2 09/20/17 21:33 Room Air 09/20/17 20:39 98.8 118 20 194/98 (130) 100 Differential Diagnosis Osteomyelitis versus discitis versus abscess versus degenerative disc disease versus other Narrative Course Patient is a 67-year-old male presenting to emerge department for evaluation of an abnormal CT scan that was performed at [facility] in [facility]. Patient has a history of discitis, osteomyelitis Here at the end of 2016. Labs and MRI ordered and pending. IV access established, patient was given Dilaudid and Zofran for pain. CBC with a white count of 11.1, sed rate is 41. Chemistry with potassium 3.2, oral replacement ordered. Moderate transaminitis noted with an AST of 215, ALT 412. CRP is 0.40. Protein is 9.0 MRI of the lumbar spine shows pathologic process centered at the L1-2 disc space level with compromise of the adjacent vertebrae felt most probably related to discitis and osteomyelitis. Thoracic spine MRI shows small disc protrusions at multiple levels, none producing significant anatomic compromise. Patient was admitted to medicine, consult was placed to neurosurgery. Patient is resting comfortably, he was made aware of all findings. He was also seen and evaluated by my attending physician. Please see his documentation. Diagnosis Primary Impression: Discitis of lumbar region Additional Impressions: Osteomyelitis of vertebra of lumbosacral region Transaminitis Hypokalemia Admitting Information Admitting Physician Requests: Admit Condition: Stable Rehana Camacho September 20, 2017 22:08
[2017-09-20] MEDS ORDERED: GADODIAMIDE PF 287 MG/ML 20 ML VIAL (for RAD MRI) IVCONTRAST ONE (22:45)
--- NOTE | 2017-09-20 23:04 | RADRPT ---
EXAM DATE/TIME: 09/20/2017 22:06 [facility] COMPARISON: No previous studies available for comparison. INDICATIONS : Severe low back pain. CONTRAST: 12 cc Omniscan (gadodiamide) IV MEDICAL HISTORY : Carcinoma, bladder. Hepatitis C. Diabetes mellitus type 2. Hypertension. SURGICAL HISTORY : Appendectomy. Cholecystectomy. ENCOUNTER: Initial ACUITY: 1 day PAIN SCORE: 5/10 LOCATION: [facility] TECHNIQUE: Multiplanar multisequence MRI of the thoracic spine was performed. FINDINGS: There are prominent findings in the lumbar spine. Please see that report for further details. VERTEBRA: Normal vertebral body height. Homogeneous marrow signal. ALIGNMENT: Normal. CORD: Normal position and configuration. POST CONTRAST: No abnormal areas of contrast enhancement seen. T1-T2: Small broad left paracentral disc protrusion slightly indenting the thecal sac and lateral recess. T2-T3: Slight undulating dorsal disc protrusion most prominent paracentral location bilaterally with minimal indentation of the thecal sac. T3-T4: Broad mild bilateral paracentral disc protrusions mildly indenting the thecal sac and lateral recesse s, right worse than left. T4-T5: The thecal sac has a normal diameter. No evidence of disc bulge or protrusion. T5-T6: The thecal sac has a normal diameter. No evidence of disc bulge or protrusion. T6-T7: The thecal sac has a normal diameter. No evidence of disc bulge or protrusion. T7-T8: The thecal sac has a normal diameter. No evidence of disc bulge or protrusion. T8-T9: The thecal sac has a normal diameter. No evidence of disc bulge or protrusion. T9-T10: Minimal broad central to slightly left paracentral disc protrusion slightly indenting thecal sac. T10-T11: The thecal sac has a normal diameter. No evidence of disc bulge or protrusion. T11-T12: The thecal sac has a normal diameter. No evidence of disc bulge or protrusion. T12-L1: The thecal sac has a normal diameter. No evidence of disc bulge or protrusion. CONCLUSION: Severe findings in the lumbar spine. See that report for further details. small disc protrusions at multiple levels in the thoracic spine, none producing significant anatomic compromise. Vishal Osorio MD on September 20, 2017 at 22:58 Board Certified Radiologist. This report was verified electronically.
[2017-09-20 23:31] VITALS: BP 127/84; PULSE 87; RESP 15; O2SAT 100
--- NOTE | 2017-09-20 23:33 | RADRPT ---
EXAM DATE/TIME: 09/20/2017 22:06 [facility] COMPARISON: No previous studies available for comparison. INDICATIONS : Severe low back pain. CONTRAST: 12 cc Omniscan (gadodiamide) IV MEDICAL HISTORY : Carcinoma, bladder. Hepatitis C. Diabetes mellitus type 2. Hypertension. SURGICAL HISTORY : Appendectomy. Cholecystectomy. ENCOUNTER: Initial ACUITY: 1 day PAIN SCORE: 5/10 LOCATION: Par[facility]inal TECHNIQUE: Multiplanar multisequence MRI of the lumbar spine was performed with and without contrast. FINDINGS: There is a pathologic process centered on the L1-2 disc space with prominent signal change and enhanc ement in both the L1 and L2 vertebral bodies as well as portions of the intervening disc space and ad jacent epidural space. There is partial collapse of both involved vertebrae. There is broad annular d isc bulge and prominent dorsal disc protrusion. There is a mild degree of concentric canal stenosis. There is slight associated focal kyphosis with a rotatory component. The appearance is felt most like ly related to discitis and osteomyelitis with superimposed anatomic compromise as described. Elsewhere, the alignment is satisfactory. There is mild annular disc bulge at L2-3 with minimal broad superimposed dorsal disc protrusion and ligamentous hypertrophy contributing to a very slight degree of canal stenosis. Mild annular disc bulge is present at L3-4 with mild posterior facet arthropathy. Mild annular disc bulge at L4-5 with superimposed broad dorsal disc protrusion, moderate dorsal liga mentous and facet hypertrophy contributing to moderate concentric canal stenosis. CONCLUSION: Pathologic process centered at the L1-2 disc space level with compromise of the adjacent vertebrae fe lt most probably related to discitis and osteomyelitis. See above discussion. Vishal Osorio MD on September 20, 2017 at 23:13 Board Certified Radiologist. This report was verified electronically.
[2017-09-20] MEDS ORDERED: CEFEPIME INJ 2,000 MG in SODIUM CHLORIDE 0.9% INJ 100 ML IV ONE (23:45)
[2017-09-20] MEDS ORDERED: POTASSIUM CHLORIDE 20 MEQ CONTROLLED RELEASE TAB PO ONE (23:45)
[2017-09-20] MEDS ORDERED: VANCOMYCIN INJ 1,000 MG in SODIUM CHLOR 0.9% 250 ML INJ 250 ML IV ONE (23:45)
[2017-09-21] MEDS ORDERED: MAGNESIUM HYDROXIDE SUSP 30 ML CUP PO PRN
[2017-09-21] MEDS ORDERED: MORPHINE SULFATE 15 MG TAB PO PRN
[2017-09-21] MEDS ORDERED: DEXTROSE 50% IN WATER 50 ML VIAL(D50) IV PUSH PRN
[2017-09-21] MEDS ORDERED: ACETAMINOPHEN 325 MG TAB PO PRN
[2017-09-21] MEDS ORDERED: ONDANSETRON HCL 4 MG/2 ML VIAL IVP PRN
[2017-09-21] MEDS ORDERED: GLUCAGON 1 MG/ML VIAL OTHER PRN
[2017-09-21] MEDS ORDERED: SODIUM CHLORIDE 0.9% FLUSH 10 ML FLUSH IV FLUSH PRN
[2017-09-21] MEDS ORDERED: SENNOSIDES 8.6 MG TAB PO PRN
[2017-09-21] MEDS ORDERED: LACTULOSE SYRUP 20 GM/30 ML CUP PO PRN
[2017-09-21] MEDS ORDERED: BISACODYL 10 MG SUPP RECTAL PRN
[2017-09-21] MEDS: SODIUM CHLOR 0.9% 1000 ML INJ 1,000 ML IV SCH ×3 (01:17→18:49)
[2017-09-21] MEDS: MORPHINE SULFATE 2 MG/ML SYRINGE IV PUSH PRN ×5 (01:19→20:28)
[2017-09-21 01:25] VITALS: BP 169/87; PULSE 92; RESP 20; TEMP 98.2; O2SAT 100
--- NOTE | 2017-09-21 01:28 | HHI.HP ---
HPI Service [facility] Hospitalists Primary Care Physician Unknown Admission Diagnosis OSTEOMYELITIS/DISCITIS Diagnoses: (1) Osteomyelitis Diagnosis: Principal (2) Leukocytosis Diagnosis: Principal (3) Weakness Diagnosis: Principal (4) DM (diabetes mellitus) Diagnosis: Principal Travel History International Travel<30 Days: No Contact w/Intl Traveler <30 Da: No Traveled to Known Affected Are: No History of Present Illness This is a 67-year-old male with a PMH of Hepatitis C, HTN, DM, COPD, Cirrhosis, h/o Esophageal Varices, h/o Ischemic Colitis s/p Bowel Resection, L-Spine Epidural Abscess s/p Laminectomy and h/o L-Spine Osteomyelitis/Discitis who presented to the ER w/ complaints of back pain in addition to lower extremity weakness. States he had imaging done at [facility] yesterday for same complaints, was told that the imaging was "very abnormal" and was told to come to [place] since he had previous treatment here. States he ambulates w/ a cane , however now w/ increased weakness to LLE. No incontinence reported. On arrival, BP 194/98, HR 118, O2 sat 100% RA, Afebrile. WBC 11.1. Chemistry essentially unremarkable except for GFR 61, K+ 3.2. L-spine MRI with pathologic process centered at L1-L2 disc space with compromise of adjacent vertebra most probably related to discitis and osteomyelitis. S/p Vanc/ Cefepime in ER. Review of Systems Except as stated in HPI: all other systems reviewed are Neg ROS: 14 point review of systems otherwise negative. Past Family Social History Past Medical History PMH: Hepatitis C, HTN, DM, COPD, Cirrhosis, h/o Esophageal Varices, h/o Ischemic Colitis s/p Bowel Resection, L-Spine Epidural Abscess s/p Laminectomy and h/o L-Spine Osteomyelitis/Discitis Past Surgical History PAST SURGICAL HISTORY: Colon Resection, Appendectomy, Left Hand Surgery, Cholecystectomy, Lumbar Laminectomy, Tympanostomy Tube Allergies: Coded Allergies: Iodinated Contrast- Oral and IV Dye (Unverified Allergy, Severe, rash/ flush, 06/04/17) butorphanol (Unverified Allergy, Severe, rash, 06/04/17) codeine (Unverified Allergy, Severe, breathing probs, 06/04/17) pentazocine (Unverified Allergy, Severe, breathing probs, 06/04/17) Family History PAST FAMILY HISTORY: Reviewed. No h/o DM or CAD Social History PAST SOCIAL HISTORY: Negative for alcohol. Positive for tobacco. + Marijuana. Physical Exam Vital Signs Vital Signs Date Time Temp Pulse Resp B/P (MAP) Pulse Ox O2 Delivery O2 Flow Rate FiO2 09/21/17 00:41 09/20/17 23:31 87 15 127/84 (98) 100 Room Air 09/20/17 21:33 Room Air 09/20/17 20:39 98.8 118 20 194/98 (130) 100 Physical Exam PE: GENERAL: Middle-age male in no acute distress, however tearful, upset at current situation. HEENT: PERRLA, EOMI. No scleral icterus or conjunctival pallor. No lid lag or facial droop. CARDIOVASCULAR: Regular rate and rhythm. No obvious murmurs to auscultation. No chest tenderness to palpation. RESPIRATORY: No obvious rhonchi or wheezing. Clear to auscultation. Breath sounds equal bilaterally. GASTROINTESTINAL: Abdomen soft, non-tender, nondistended. BS normal. MUSCULOSKELETAL: Extremities without clubbing, cyanosis, or edema. No obvious deformities. NEUROLOGICAL: Awake, alert and oriented x4. Strength LLE 4/5, back pain w/ left leg raise. Moving both upper and lower extremities spontaneously. Laboratory Laboratory Tests Test 09/20/17 21:25 White Blood Count 11.1 Red Blood Count 4.65 Hemoglobin 13.1 Hematocrit 38.7 Mean Corpuscular Volume 83.1 Mean Corpuscular Hemoglobin 28.1 Mean Corpuscular Hemoglobin Concent 33.8 Red Cell Distribution Width 15.3 Platelet Count 176 Mean Platelet Volume 8.4 Neutrophils (%) (Auto) 70.5 Lymphocytes (%) (Auto) 20.6 Monocytes (%) (Auto) 8.4 Eosinophils (%) (Auto) 0.3 Basophils (%) (Auto) 0.2 Neutrophils # (Auto) 7.8 Lymphocytes # (Auto) 2.3 Monocytes # (Auto) 0.9 Eosinophils # (Auto) 0.0 Basophils # (Auto) 0.0 CBC Comment DIFF FINAL Differential Comment Erythrocyte Sedimentation Rate 41 Blood Urea Nitrogen 18 Creatinine 1.20 Random Glucose 226 Total Protein 9.0 Albumin 3.6 Calcium Level 8.4 Alkaline Phosphatase 191 Aspartate Amino Transf (AST/SGOT) 215 Alanine Aminotransferase (ALT/SGPT) 412 Total Bilirubin 1.0 Sodium Level 135 Potassium Level 3.2 Chloride Level 106 Carbon Dioxide Level 20.4 Anion Gap 9 Estimat Glomerular Filtration Rate 61 C-Reactive Protein 0.40 Result Diagram: 09/20/17212409/20/172124 Caprini VTE Risk Assessment Caprini VTE Risk Assessment: No/Low Risk (score <= 1) Caprini Risk Assessment Model Point Value = 1 Point Value = 2 Point Value = 3 Point Value = 5 Age 41-60 Minor surgery BMI > 25 kg/m2 Swollen legs Varicose veins or History of unexplained or recurrent spontaneous Oral contraceptives or hormone replacement Sepsis (< 1 month) Serious lung disease, including pneumonia (< 1 month) Abnormal pulmonary function Acute myocardial infarction Congestive heart failure (< 1 month) History of inflammatory bowel disease Medical patient at bed rest Age 61-74 Arthroscopic surgery Major open surgery (> 45 min) Laparoscopic surgery (> 45 min) Malignancy Confined to bed (> 72 hours) Immobilizing plaster cast Central venous access Age >= 75 History of VTE Family history of VTE Factor V Leiden Prothrombin [id number] Lupus anticoagulant Anticardiolipin antibodies Elevated serum homocysteine Heparin-induced thrombocytopenia Other congenital or acquired thrombophilia Stroke (< 1 month) Elective arthroplasty Hip, pelvis, or leg fracture Acute spinal cord injury (< 1 month) Prophylaxis Regimen Total Risk Factor Score Risk Level Prophylaxis Regimen 0-1 Low Early ambulation 2 Moderate Order ONE of the following: *Sequential Compression Device (SCD) *Heparin 5000 units SQ BID 3-4 Higher Order ONE of the following medications: *Heparin 5000 units SQ TID *Enoxaparin/Lovenox 40 mg SQ daily (WT < 150 kg, CrCl > 30 mL/min) *Enoxaparin/Lovenox 30 mg SQ daily (WT < 150 kg, CrCl > 10-29 mL/min) *Enoxaparin/Lovenox 30 mg SQ BID (WT < 150 kg, CrCl > 30 mL/min) AND/OR *Sequential Compression Device (SCD) 5 or more Highest Order ONE of the following medications: *Heparin 5000 units SQ TID (Preferred with Epidurals) *Enoxaparin/Lovenox 40 mg SQ daily (WT < 150 kg, CrCl > 30 mL/min) *Enoxaparin/Lovenox 30 mg SQ daily (WT < 150 kg, CrCl > 10-29 mL/min) *Enoxaparin/Lovenox 30 mg SQ BID (WT < 150 kg, CrCl > 30 mL/min) AND *Sequential Compression Device (SCD) Assessment and Plan Problem List: (1) Osteomyelitis ICD Code: M86.9 - Osteomyelitis, unspecified (2) Weakness ICD Code: R53.1 - Weakness (3) Leukocytosis ICD Code: D72.829 - Elevated white blood cell count, unspecified (4) DM (diabetes mellitus) ICD Code: E11.9 - Type 2 diabetes mellitus without complications Assessment and Plan A/P: 1. Osteomyelitis: h/o L-Spine Epidural Abscess, s/p Lumbar Laminectomy by Dr. Fitzgerald 03/25/17, c/o back pain, seen at [facility] and had "abnormal CT", instructed to come to [place] for evaluation. MRI L-Spine w/ pathologic process centered at L1-L2 disc space with compromise of adjacent vertebra likely due to osteomyelitis/discitis, images reviewed by me. S/p Vanc/Cefepime in ER, will continue w/ IV Abx, Consult NxSx for further evaluation, Consult ID as needed for recommendations. 2. Weakness: ambulates w/ cane at baseline, reports worsening lower extremity weakness, PT for eval/tx. 3. Leukocytosis: WBC 11.1, afebrile, continue w/ IV Abx for above, repeat labs in am 4. DM: Sliding scale w/ Accu-Cheks. 5. DVT Prophylaxis: SCD/Teds 6. Social work for d/c planning as needed. 7. Case discussed w/ ER physician at length, labs/records/imaging reviewed by me. Physician Certification 2 Midnight Certification Type: Admission for Inpatient Services Order for Inpatient Services The services are ordered in accordance with Medicare regulations or non- Medicare payer requirements, as applicable. In the case of services not specified as inpatient-only, they are appropriately provided as inpatient services in accordance with the 2-midnight benchmark. Estimated LOS (days): 2 days is the estimated time the patient will need to remain in the hospital, assuming treatment plan goals are met and no additional complications. Post-Hospital Plan: Not yet determined Viola Tello MD September 21, 2017 01:28
[2017-09-21 04:53] VITALS: BP 167/87; PULSE 87; RESP 18; TEMP 98.8; O2SAT 100
[2017-09-21] MEDS: GABAPENTIN 300 MG CAP PO SCH ×3 (05:54→20:28)
[2017-09-21] MEDS: MORPHINE SULFATE 15 MG CONTROLLED RELEASE TAB PO SCH ×3 (05:54→20:28)
[2017-09-21 08:00] VITALS: BP 168/87; PULSE 83; RESP 20; TEMP 98.9; O2SAT 100
[2017-09-21] MEDS: ASPIRIN EC 81 MG TABEC PO SCH (08:20)
[2017-09-21] MEDS: BACLOFEN 10 MG TAB PO SCH ×2 (08:20→20:29)
[2017-09-21] MEDS: DOCUSATE SODIUM 50 MG/SENNA 8.6 MG TAB PO SCH ×2 (08:20→20:29)
[2017-09-21] MEDS: SODIUM CHLORIDE 0.9% FLUSH 10 ML FLUSH IV FLUSH SCH ×2 (08:20→20:29)
[2017-09-21] MEDS: METOPROLOL TARTRATE 100 MG TAB PO SCH (08:20)
[2017-09-21] MEDS: INSULIN DETEMIR 100 UNITS/ML VIAL SQ SCH ×2 (08:21→22:07)
[2017-09-21] MEDS: INSULIN ASPART SUPPLEMENTAL SCALE SQ SCH ×4 (08:21→22:07)
[2017-09-21] MEDS: HYDROmorphone HCL 4 MG TAB PO PRN ×2 (08:22→17:04)
[2017-09-21] MEDS: DULoxetine HCl DR 20 MG CAP PO SCH (08:30)
[2017-09-21] MEDS: BUDESONIDE-FORMOTEROL 160/4.5 MCG INHALER INH SCH ×2 (08:31→23:04)
[2017-09-21] MEDS: TENOFOVIR DISOPROXIL FUMARATE 300 MG TAB PO SCH (08:31)
[2017-09-21 10:43] LABS: AUTOMATED NEUTROPHIL # 5.9 TH/MM3 (1.8-7.7); BASOPHIL % 0.3 % (0.0-2.0); EOSINOPHIL # 0.1 TH/MM3 (0-0.4); EOSINOPHIL % 0.8 % (0.0-4.0); HEMATOCRIT 32.3 % (39.0-51.0); HEMOGLOBIN 11.1 GM/DL (13.0-17.0); LYMPH % 21.1 % (9.0-44.0); LYMPHOCYTE # 1.8 TH/MM3 (1.0-4.8); MEAN CELL VOLUME 84.1 FL (80.0-100.0); MEAN CORPUSCULAR HEMOGLOBIN 28.9 PG (27.0-34.0); MEAN CORPUSCULAR HGB CONC 34.4 % (32.0-36.0); MEAN PLATELET VOLUME 8.8 FL (7.0-11.0); MONO % 8.3 % (0.0-8.0); MONOCYTE # 0.7 TH/MM3 (0-0.9); NEUT % 69.5 % (16.0-70.0); PLATELET COUNT 138 TH/MM3 (150-450); RED BLOOD COUNT 3.84 MIL/MM3 (4.50-5.90); RED CELL DISTRIBUTION WIDTH 15.1 % (11.6-17.2); WHITE BLOOD COUNT 8.4 TH/MM3 (4.0-11.0)
[2017-09-21 11:13] LABS: ALBUMIN 2.7 GM/DL (3.4-5.0); ALKALINE PHOSPHATASE 149 U/L (45-117); ALT (GPT) 306 U/L (12-78); AST (GOT) 163 U/L (15-37); BICARBONATE 21.2 MEQ/L (21.0-32.0); BLOOD UREA NITROGEN 14 MG/DL (7-18); CALCIUM 7.8 MG/DL (8.5-10.1); CHLORIDE 112 MEQ/L (98-107); CREATININE 0.87 MG/DL (0.60-1.30); GLOMERULAR FILTRATION RATE 88 ML/MIN (>89); GLUCOSE,RANDOM 196 MG/DL (74-106); SODIUM (NA) 139 MEQ/L (136-145); TOTAL BILIRUBIN ADULT 1.1 MG/DL (0.2-1.0); TOTAL PROTEIN 7.3 GM/DL (6.4-8.2)
[2017-09-21 12:00] VITALS: BP 166/87; PULSE 67; RESP 22; TEMP 98.4; O2SAT 100
--- NOTE | 2017-09-21 13:21 | PD.CONS ---
History of Present Illness Consult Requested By Primary Care Physician Unknown Diagnoses: History of Present Illness 67-year-old male with a lumbar L2-3 epidural abscess with discitis and osteomyelitis who underwent laminectomy by Dr. Fitzgerald in March 2017 with subsequent antibiotic treatment. History of of Hepatitis C, HTN, DM, COPD, Cirrhosis, h/o Esophageal Varices, h/o Ischemic Colitis s/p Bowel Resection States he ambulates w/ a cane, however now w/ increased weakness and worsening pain in his back and legs over the past couple of months. No incontinence reported although has a history of bladder cancer and chronic issues with bladder control intermittently. He went to [facility] yesterday and a CT of the abdomen and pelvis revealed L2-3 destructive abnormality related to the history of osteomyelitis and discitis. He was told to come to [facility] for further management. MRI scan of the lumbar spine obtained reveals a chronic L2-3 endplate destructive and discitis related to erosion with a grade 1 spondylolisthesis and previous laminectomy with a mild ventral thecal sac impingement from disc osteophyte complex. He has been ambulating with a cane. He relates that he was using back brace but it was too rigid for him and did not help and he stopped using it. He denies any fevers or chills. Review of Systems Constitutional: DENIES: Diaphoretic episodes, Fatigue, Fever, Weight gain, Weight loss, Chills, Dizziness, Change in appetite, Night Sweats Endocrine: DENIES: Heat/cold intolerance, Polydipsia, Polyuria, Polyphagia Eyes: DENIES: Blurred vision, Diplopia, Eye inflammation, Eye pain, Vision loss , Photosensitivity, Double Vision Ears, nose, mouth, throat: DENIES: Tinnitus, Hearing loss, Vertigo, Nasal discharge, Oral lesions, Throat pain, Hoarseness, Ear Pain, Running Nose, Epistaxis, Sinus Pain, Toothache, Odynophagia Respiratory: DENIES: Apneas, Cough, Snoring, Wheezing, Hemoptysis, Sputum production, Shortness of breath Cardiovascular: DENIES: Chest pain, Palpitations, Syncope, Dyspnea on Exertion , PND, Lower Extremity Edema, Orthopnea, Claudication Gastrointestinal: COMPLAINS OF: Abdominal pain, DENIES: Black stools, Bloody stools, Constipation, Diarrhea, Nausea, Vomiting, Difficulty Swallowing, Anorexia Genitourinary: COMPLAINS OF: Urinary frequency, Urgency, DENIES: Sexual dysfunction, Urinary incontinence, Hematuria, Dysuria, Nocturia, Penile Discharge, Testicular Pain, Testicular Swelling Musculoskeletal: COMPLAINS OF: Muscle aches, Stiffness, Back pain, DENIES: Joint pain, Joint Swelling, Neck pain Integumentary: DENIES: Abnormal pigmentation, Nail changes, Pruritus, Rash Hematologic/lymphatic: DENIES: Bruising, Lymphadenopathy Immunologic/allergic: DENIES: Eczema, Urticaria Neurologic: COMPLAINS OF: Paresthesias, DENIES: Abnormal gait, Headache, Localized weakness, Seizures, Speech Problems, Tremor, Poor Balance Psychiatric: DENIES: Anxiety, Confusion, Mood changes, Depression, Hallucinations, Agitation, Suicidal Ideation, Homicidal Ideation, Delusions Except as stated in HPI: all other systems reviewed are Neg Past Family Social History Allergies: Coded Allergies: Iodinated Contrast- Oral and IV Dye (Unverified Allergy, Severe, rash/ flush, 06/04/17) butorphanol (Unverified Allergy, Severe, rash, 06/04/17) codeine (Unverified Allergy, Severe, breathing probs, 06/04/17) pentazocine (Unverified Allergy, Severe, breathing probs, 06/04/17) Past Medical History Hepatitis C, HTN, DM, COPD, Cirrhosis, h/o Esophageal Varices, h/o Ischemic Colitis s/p Bowel Resection, L-Spine Epidural Abscess s/p Laminectomy and h/o L- Spine Osteomyelitis/Discitis, peripheral neuropathy in his feet with chronic numbness from the diabetes Past Surgical History Colon Resection, Appendectomy, Left Hand Surgery, Cholecystectomy, Lumbar Laminectomy, Tympanostomy Tube Reported Medications Duloxetine DR (Duloxetine HCl) 20 Mg Capdr 20 Mg PO DAILY Novolog Mix 70-30 FlexPen Inj (Insulin Aspart Protam-Asp 70-30 Inj) 300 Unit/3 Ml Pen 1 Units SQ SLIDING SCALE Dilaudid (Hydromorphone HCl) 4 Mg Tab 4 Mg PO Q6HR PRN Morphine IR (Morphine Sulfate) 15 Mg Tab 15 Mg PO BID PRN Metoprolol Tartrate 100 Mg Tab 100 Mg PO DAILY Famotidine 20 Mg Tab 20 Mg PO BID Neurontin (Gabapentin) 300 Mg Cap 300 Mg PO Q8HR Ferosul (Ferrous Sulfate) 325 Mg (65 Mg Iron) Tablet 325 Mg PO BID@12,17 Baclofen 10 Mg Tab 10 Mg PO Q12HR 30 Days Flomax (Tamsulosin HCl) 0.4 Mg Cap 0.4 Mg PO HS Levemir Inj (Insulin Detemir) 1,000 unit/ 10 ML Vial 8 Units SQ BID 30 Days Do not mix with any other Insulin. Symbicort Inh (Budesonide/Formoterol Fumarate) 160-4.5 Mcg/Act Aero 1 Puff INH Q12HR [Megestrol Liq] 400 MG/10 ML Susp 400 Mg PO DAILY 30 Days [Budeson-Formot 160-4.5 Mcg Inh] 60 PUFF Aero 1 Puff INH Q12HR [address] (Aspirin) 81 Mg Tabdr 81 Mg PO DAILY 30 Days Viread (Tenofovir Disoproxil Fumarate) 300 Mg Tab 300 Mg PO DAILY 30 Days Commode 3-in-1 (Device) 1 Mis Mis Ea .ROUTE DIRECTED Wheelchair (Device) 1 Mis Mis Ea .ROUTE DIRECTED Lidoderm (Lidocaine) 5 % Adh..patch 1 Patch T-DERMAL DAILY 30 Days [Budeson-Formot 160-4.5 Mg Inh] 60 PUFF Aero 1 Puff INH Q12HR 30 Days Wheelchair (Device) 1 Mis Mis Ea .ROUTE DIRECTED Commode 3-in-1 (Device) 1 Mis Mis Ea .ROUTE DIRECTED Walker Rolling/GetGo (Device) 1 Mis Mis Ea .ROUTE DIRECTED Active Ordered Medications Current Medications Medications (Trade) Dose Ordered Sig/Jaya Route PRN Reason Start Time Stop Time Status Last Admin Dose Admin Dextrose (D50w (Vial) Inj) 50 ml UNSCH PRN IV PUSH HYPOGLYCEMIA-SEE COMMENTS 09/21/17 00:00 Glucagon (Glucagon Inj) 1 mg UNSCH PRN OTHER HYPOGLYCEMIA-SEE COMMENTS 09/21/17 00:00 Insulin Aspart (NovoLOG SUPPLEMENTAL SCALE) 1 ACHS SLIDING SCALE SQ 09/21/17 08:00 09/21/17 12:06 Sodium Chloride 1,000 ml @ 100 mls/hr Q10H IV 09/20/17 23:52 09/21/17 01:17 Sodium Chloride (NS Flush) 2 ml UNSCH PRN IV FLUSH FLUSH AFTER USING IV ACCESS 09/21/17 00:00 Sodium Chloride (NS Flush) 2 ml BID IV FLUSH 09/21/17 09:00 09/21/17 08:20 Ondansetron HCl (Zofran Inj) 4 mg Q6H PRN IVP NAUSEA OR VOMITING 09/21/17 00:00 Acetaminophen (Tylenol) 650 mg Q6H PRN PO FEVER/PAIN SCALE 1 TO 2 09/21/17 00:00 Morphine Sulfate (Morphine Inj) 2 mg Q3H PRN IV PUSH Pain 6-10 09/21/17 00:00 09/21/17 11:15 Senna/Docusate Sodium (Shaila-Colace) 1 tab BID PO 09/21/17 09:00 09/21/17 08:20 Magnesium Hydroxide (Milk Of Magnesia Liq) 30 ml Q12H PRN PO Mild constipation 09/21/17 00:00 Sennosides (Senokot) 17.2 mg Q12H PRN PO Moderate constipation 09/21/17 00:00 Bisacodyl (Dulcolax Supp) 10 mg DAILY PRN RECTAL SEVERE CONSITIPATION 09/21/17 00:00 Lactulose (Lactulose Liq) 30 ml DAILY PRN PO SEVERE CONSITIPATION 09/21/17 00:00 Aspirin (Ecotrin Ec) 81 mg DAILY PO 09/21/17 09:00 09/21/17 08:20 Baclofen (Lioresal) 10 mg Q12HR PO 09/21/17 09:00 09/21/17 08:20 Budesonide/ Formoterol Fumarate (Symbicort 160-4.5 Mcg Inh) 1 puff Q12HR INH 09/21/17 09:00 Gabapentin (Neurontin) 300 mg Q8HR PO 09/21/17 06:00 09/21/17 05:54 Insulin Detemir (Levemir Inj) 8 units BID SQ 09/21/17 09:00 09/21/17 08:21 Metoprolol Tartrate (Lopressor) 100 mg DAILY PO 09/21/17 09:00 09/21/17 08:20 Tamsulosin HCl (Flomax) 0.4 mg HS PO 09/21/17 21:00 Tenofovir Disoproxil Fumarate (Viread) 300 mg DAILY PO 09/21/17 09:00 09/21/17 08:31 Hydromorphone HCl (Dilaudid) 4 mg Q4H PRN PO PAIN 3-5 09/21/17 00:15 5/6/18 08:22 Morphine Sulfate (Oramorph Sr) 15 mg Q8HR PO 09/21/17 06:00 09/21/17 05:54 Duloxetine HCl (Cymbalta Dr) 20 mg DAILY PO 09/21/17 09:00 09/21/17 08:30 Family History No history of diabetes mellitus or coronary artery disease in the family Social History He is single and admits to smoking cigarettes although denies alcohol use. History of cocaine use. Physical Exam Vital Signs Vital Signs Date Time Temp Pulse Resp B/P (MAP) Pulse Ox O2 Delivery O2 Flow Rate FiO2 09/21/17 11:20 18 09/21/17 09:22 18 09/21/17 08:00 98.9 83 20 168/87 (114) 100 09/21/17 08:00 Room Air 09/21/17 04:53 Room Air 09/21/17 04:53 98.8 87 18 167/87 (113) 100 09/21/17 01:25 98.2 92 20 169/87 (114) 100 09/21/17 01:25 Room Air 09/21/17 00:41 09/20/17 23:31 87 15 127/84 (98) 100 Room Air 09/20/17 21:33 Room Air 09/20/17 20:39 98.8 118 20 194/98 (130) 100 Physical Exam GENERAL: This is a well-nourished, well-developed patient, in no apparent distress. SKIN: No rashes, ecchymoses or lesions. Cool and dry. HEAD: Atraumatic. Normocephalic. No temporal or scalp tenderness. EYES: Pupils equal round and reactive. Extraocular motions intact. No scleral icterus. No injection or drainage. ENT: Nose without bleeding, purulent drainage or septal hematoma. Throat without erythema, tonsillar hypertrophy or exudate. Uvula midline. Airway patent. NECK: Trachea midline. No JVD or lymphadenopathy. Supple, nontender, no meningeal signs. CARDIOVASCULAR: Regular rate and rhythm without murmurs, gallops, or rubs. RESPIRATORY: Clear to auscultation. Breath sounds equal bilaterally. No wheezes , rales, or rhonchi. GASTROINTESTINAL: Abdomen soft, non-tender, nondistended. No hepato-splenomegaly , or palpable masses. No guarding. MUSCULOSKELETAL: Extremities without clubbing, cyanosis, or edema. No joint tenderness, effusion, or edema noted. No calf tenderness. Negative Homans sign bilaterally. NEUROLOGICAL: Awake and alert. Cranial nerves II through XII intact. Normal speech. Giveaway weakness in the lower extremities secondary to pain with movement in the back and legs but he has about 4/5 strength. Decreased sensation in a stocking format in his feet with negative Babinski. Laboratory Laboratory Tests Test 09/20/17 21:25 09/21/17 09:46 White Blood Count 11.1 8.4 Red Blood Count 4.65 3.84 Hemoglobin 13.1 11.1 Hematocrit 38.7 32.3 Mean Corpuscular Volume 83.1 84.1 Mean Corpuscular Hemoglobin 28.1 28.9 Mean Corpuscular Hemoglobin Concent 33.8 34.4 Red Cell Distribution Width 15.3 15.1 Platelet Count 176 138 Mean Platelet Volume 8.4 8.8 Neutrophils (%) (Auto) 70.5 69.5 Lymphocytes (%) (Auto) 20.6 21.1 Monocytes (%) (Auto) 8.4 8.3 Eosinophils (%) (Auto) 0.3 0.8 Basophils (%) (Auto) 0.2 0.3 Neutrophils # (Auto) 7.8 5.9 Lymphocytes # (Auto) 2.3 1.8 Monocytes # (Auto) 0.9 0.7 Eosinophils # (Auto) 0.0 0.1 Basophils # (Auto) 0.0 0.0 CBC Comment DIFF FINAL DIFF FINAL Differential Comment Erythrocyte Sedimentation Rate 41 Blood Urea Nitrogen 18 14 Creatinine 1.20 0.87 Random Glucose 226 196 Total Protein 9.0 7.3 Albumin 3.6 2.7 Calcium Level 8.4 7.8 Alkaline Phosphatase 191 149 Aspartate Amino Transf (AST/SGOT) 215 163 Alanine Aminotransferase (ALT/SGPT) 412 306 Total Bilirubin 1.0 1.1 Sodium Level 135 139 Potassium Level 3.2 4.1 Chloride Level 106 112 Carbon Dioxide Level 20.4 21.2 Anion Gap 9 6 Estimat Glomerular Filtration Rate 61 88 C-Reactive Protein 0.40 Result Diagram: 09/21/17 0946 09/21/17 0946 Imaging Last Impressions Thoracic Spine MRI 09/20/17 0000 Signed Impressions: Service Date/Time: Wednesday, September 20, 2017 22:06 - CONCLUSION: Severe findings in the lumbar spine. See that report for further details. small disc protrusions at multiple levels in the thoracic spine, none producing significant anatomic compromise. Vishal Osorio MD Lumbar Spine MRI 09/20/17 0000 Signed Impressions: Service Date/Time: Wednesday, September 20, 2017 22:06 - CONCLUSION: Pathologic process centered at the L1-2 disc space level with compromise of the adjacent vertebrae felt most probably related to discitis and osteomyelitis. See above discussion. Vishal Osorio MD Assessment and Plan Assessment and Plan 67-year-old gentleman with a history of L2-3 discitis/osteomyelitis/epidural abscess who underwent L2-3 laminectomy with epidural abscess evacuation in March [address] Fitzgerald with subsequent antibiotic treatment. He has chronic appearing changes in the L2-3 endplate destruction with discitis and disc osteophyte complex with laminectomy and overall mild stenosis. His white blood cell count and his sed rate are slightly elevated. We may need to undertake an L2-3 CT guided aspiration to rule out any persistent or recurrent infection. Recommend DVT prophylaxis as well as pain control and rehabilitation with physical therapy to prevent deconditioning. Dr. Fitzgerald will evaluate the patient tomorrow morning for any further recommendations from a neurosurgical standpoint. John Munguia MD September 21, 2017 13:21
[2017-09-21 16:00] VITALS: BP 137/67; PULSE 67; RESP 20; TEMP 98.9; O2SAT 100
[2017-09-21 20:00] VITALS: BP 158/81; PULSE 67; RESP 17; TEMP 98.7; O2SAT 99
[2017-09-21] MEDS: TAMSULOSIN HCL 0.4 MG CAP PO SCH (20:29)
[2017-09-22] VITALS (7 sets, daily range): BP systolic 109–140; BP diastolic 57–82; PULSE 60–74; RESP 17–20; TEMP 97.9–98.9; O2SAT 98–100
[2017-09-22] MEDS: HYDROmorphone HCL 4 MG TAB PO PRN ×7 (00:09→23:54)
[2017-09-22] MEDS: MORPHINE SULFATE 2 MG/ML SYRINGE IV PUSH PRN ×2 (01:53→06:00)
[2017-09-22] MEDS: SODIUM CHLOR 0.9% 1000 ML INJ 1,000 ML IV SCH ×2 (05:47→15:52)
[2017-09-22] MEDS: GABAPENTIN 300 MG CAP PO SCH ×3 (05:59→20:45)
[2017-09-22] MEDS: MORPHINE SULFATE 15 MG CONTROLLED RELEASE TAB PO SCH ×3 (05:59→23:54)
[2017-09-22] MEDS: INSULIN ASPART SUPPLEMENTAL SCALE SQ SCH ×4 (08:00→20:48)
[2017-09-22] MEDS: TENOFOVIR DISOPROXIL FUMARATE 300 MG TAB PO SCH (08:46)
[2017-09-22] MEDS: DULoxetine HCl DR 20 MG CAP PO SCH (08:46)
[2017-09-22] MEDS: METOPROLOL TARTRATE 100 MG TAB PO SCH (08:46)
[2017-09-22] MEDS: BACLOFEN 10 MG TAB PO SCH ×2 (08:46→20:45)
[2017-09-22] MEDS: DOCUSATE SODIUM 50 MG/SENNA 8.6 MG TAB PO SCH ×2 (08:47→20:46)
[2017-09-22] MEDS: ASPIRIN EC 81 MG TABEC PO SCH (08:47)
[2017-09-22] MEDS: INSULIN DETEMIR 100 UNITS/ML VIAL SQ SCH ×2 (08:48→20:47)
[2017-09-22] MEDS: BUDESONIDE-FORMOTEROL 160/4.5 MCG INHALER INH SCH ×2 (08:50→21:00)
[2017-09-22] MEDS: SODIUM CHLORIDE 0.9% FLUSH 10 ML FLUSH IV FLUSH SCH ×2 (08:50→20:46)
--- NOTE | 2017-09-22 09:44 | HHI.NSPN ---
Note Status Status: Progress Note Interval History Interval History 67-year-old male with a lumbar L2-3 epidural abscess with discitis and osteomyelitis who underwent laminectomy by Dr. Fitzgerald in March 2017 with subsequent antibiotic treatment. History of of Hepatitis C, HTN, DM, COPD, Cirrhosis, h/o Esophageal Varices, h/o Ischemic Colitis s/p Bowel Resection States he ambulates w/ a cane, however now w/ increased weakness and worsening pain in his back and legs over the past couple of months. No incontinence reported although has a history of bladder cancer and chronic issues with bladder control intermittently. He went to [facility] yesterday and a CT of the abdomen and pelvis revealed L2-3 destructive abnormality related to the history of osteomyelitis and discitis. He was told to come to [facility] for further management. MRI scan of the lumbar spine obtained reveals a chronic L2-3 endplate destructive and discitis related to erosion with a grade 1 spondylolisthesis and previous laminectomy with a mild ventral thecal sac impingement from disc osteophyte complex. He has been ambulating with a cane. He relates that he was using back brace but it was too rigid for him and did not help and he stopped using it. He denies any fevers or chills. 09/22.Mr Crook reports that he has not received a full course of antibiotics and he was discharged from the hospital without antibiotics. He lost to follow up, he has followed up with his family doctor. Painful. Moves all 4 extremities. No focal neurological deficits Labs, Micro, & Vital Signs Results Date Time Temp Pulse Resp B/P (MAP) Pulse Ox O2 Delivery O2 Flow Rate FiO2 09/22/17 08:07 98.0 67 18 133/79 (97) 98 09/22/17 04:00 98.9 73 17 109/57 (74) 99 09/22/17 00:00 98.2 70 17 140/71 (94) 100 09/22/17 00:00 Room Air 09/21/17 20:00 Room Air 09/21/17 20:00 98.7 67 17 158/81 (106) 99 09/21/17 18:04 18 09/21/17 16:00 98.9 67 20 137/67 (90) 100 09/21/17 15:26 18 09/21/17 14:47 18 09/21/17 12:00 98.4 67 22 166/87 (113) 100 Constitutional Vital Signs Date Time Temp Pulse Resp B/P (MAP) Pulse Ox O2 Delivery O2 Flow Rate FiO2 09/22/17 08:07 98.0 67 18 133/79 (97) 98 09/22/17 04:00 98.9 73 17 109/57 (74) 99 09/22/17 00:00 98.2 70 17 140/71 (94) 100 09/22/17 00:00 Room Air 09/21/17 20:00 Room Air 09/21/17 20:00 98.7 67 17 158/81 (106) 99 09/21/17 18:04 18 09/21/17 16:00 98.9 67 20 137/67 (90) 100 09/21/17 15:26 18 09/21/17 14:47 18 09/21/17 12:00 98.4 67 22 166/87 (113) 100 Physical Exam GENERAL: This is a well-nourished, well-developed patient, in no apparent distress. SKIN: No rashes, ecchymoses or lesions. Cool and dry. HEAD: Atraumatic. Normocephalic. No temporal or scalp tenderness. EYES: Pupils equal round and reactive. Extraocular motions intact. No scleral icterus. No injection or drainage. ENT: Nose without bleeding, purulent drainage or septal hematoma. Throat without erythema, tonsillar hypertrophy or exudate. Uvula midline. Airway patent. NECK: Trachea midline. No JVD or lymphadenopathy. Supple, nontender, no meningeal signs. CARDIOVASCULAR: Regular rate and rhythm without murmurs, gallops, or rubs. RESPIRATORY: Clear to auscultation. Breath sounds equal bilaterally. No wheezes , rales, or rhonchi. GASTROINTESTINAL: Abdomen soft, non-tender, nondistended. No hepato-splenomegaly , or palpable masses. No guarding. MUSCULOSKELETAL: Extremities without clubbing, cyanosis, or edema. No joint tenderness, effusion, or edema noted. No calf tenderness. Negative Homans sign bilaterally. NEUROLOGICAL: Awake and alert. Cranial nerves II through XII intact. Normal speech. Giveaway weakness in the lower extremities secondary to pain with movement in the back and legs but he has about 4/5 strength. Decreased sensation in a stocking format in his feet with plantar flexion response Medications Current Medications Current Medications Ondansetron HCl (Zofran Inj) 4 mg ONCE ONCE IVP Last administered on 09/20/17 21:41; Start 09/20/17 at 21:15; Stop 09/20/17 at 21:16; Status DC Sodium Chloride (NS Flush) 2 ml UNSCH PRN IV FLUSH FLUSH AFTER USING IV ACCESS ; Start 09/20/17 at 21:15; Stop 09/21/17 at 00:13; Status DC Hydromorphone HCl (Dilaudid Pf Inj) 0.5 mg ONCE ONCE IV PUSH Last administered on 09/20/17 21:41; Start 09/20/17 at 21:15; Stop 09/20/17 at 21:16; Status DC Lorazepam (Ativan Inj) 0.5 mg ONCE ONCE IV PUSH Last administered on 09/20/17at 22:03; Start 09/20/17 at 21:30; Stop 09/20/17 at 21:32; Status DC Gadodiamide (Omniscan Pf Inj) 12 ml STK-MED ONCE IVCONTRAST Last administered on 09/20/17at 22:45; Start 09/20/17 at 22:45; Stop 09/20/17 at 22:46; Status DC Hydromorphone HCl (Dilaudid Pf Inj) 0.5 mg ONCE ONCE IV PUSH Last administered on 09/20/17at 23:45; Start 09/20/17 at 23:30; Stop 09/20/17 at 23:31; Status DC Vancomycin HCl 1000 mg/Sodium Chloride 250 ml @ 250 mls/hr ONCE ONCE IV Last administered on 09/21/17at 00:41; Start 09/20/17 at 23:45; Stop 09/21/17 at 00:44; Status DC Cefepime HCl 2000 mg/Sodium Chloride 100 ml @ 200 mls/hr ONCE ONCE IV Last administered on 09/21/17at 00:04; Start 09/20/17 at 23:45; Stop 09/21/17 at 00:14; Status DC Potassium Chloride (KCl) 40 meq ONCE ONCE PO Last administered on 09/21/17at 00: 04; Start 09/20/17 at 23:45; Stop 09/20/17 at 23:46; Status DC Dextrose (D50w (Vial) Inj) 50 ml UNSCH PRN IV PUSH HYPOGLYCEMIA-SEE COMMENTS; Start 09/21/17 at 00:00 Glucagon (Glucagon Inj) 1 mg UNSCH PRN OTHER HYPOGLYCEMIA-SEE COMMENTS; Start 09/21/17 at 00:00 Insulin Aspart (NovoLOG SUPPLEMENTAL SCALE) 1 ACHS SLIDING SCALE SQ Last administered on 09/21/17at 22:07; Start 09/21/17 at 08:00 Sodium Chloride 1,000 ml @ 100 mls/hr Q10H IV Last administered on 09/21/17at 18 :49; Start 09/20/17 at 23:52 Sodium Chloride (NS Flush) 2 ml UNSCH PRN IV FLUSH FLUSH AFTER USING IV ACCESS ; Start 09/21/17 at 00:00 Sodium Chloride (NS Flush) 2 ml BID IV FLUSH Last administered on 09/22/17at 08: 50; Start 09/21/17 at 09:00 Ondansetron HCl (Zofran Inj) 4 mg Q6H PRN IVP NAUSEA OR VOMITING; Start at 00:00 Acetaminophen (Tylenol) 650 mg Q6H PRN PO FEVER/PAIN SCALE 1 TO 2; Start at 00:00 Morphine Sulfate (Morphine Inj) 2 mg Q3H PRN IV PUSH Pain 6-10 Last administered on 09/22/17at 06:00; Start 09/21/17 at 00:00 Senna/Docusate Sodium (Shaila-Colace) 1 tab BID PO Last administered on 09/21/17at 08:20; Start 09/21/17 at 09:00 Magnesium Hydroxide (Milk Of Magnesia Liq) 30 ml Q12H PRN PO Mild constipation ; Start 09/21/17 at 00:00 Sennosides (Senokot) 17.2 mg Q12H PRN PO Moderate constipation; Start 09/21/17 at 00:00 Bisacodyl (Dulcolax Supp) 10 mg DAILY PRN RECTAL SEVERE CONSITIPATION; Start at 00:00 Lactulose (Lactulose Liq) 30 ml DAILY PRN PO SEVERE CONSITIPATION; Start at 00:00 Aspirin (Ecotrin Ec) 81 mg DAILY PO Last administered on 09/22/17 08:47; Start 09/21/17 at 09:00 Baclofen (Lioresal) 10 mg Q12HR PO Last administered on 09/22/17 08:46; Start 09/21/17 at 09:00 Budesonide/ Formoterol Fumarate (Symbicort 160-4.5 Mcg Inh) 1 puff Q12HR INH Last administered on 09/22/17 08:50; Start 09/21/17 at 09:00 Gabapentin (Neurontin) 300 mg Q8HR PO Last administered on 09/22/17 05:59; Start 09/21/17 at 06:00; Stop 09/22/17 at 09:24; Status DC Insulin Detemir (Levemir Inj) 8 units BID SQ Last administered on 09/22/17 08: 48; Start 09/21/17 at 09:00 Metoprolol Tartrate (Lopressor) 100 mg DAILY PO Last administered on 09/22/17 08:46; Start 09/21/17 at 09:00 Morphine Sulfate (Msir) 15 mg BID PRN PO BREAKTHROUGH PAIN; Start 09/21/17 at 00 :00; Stop 09/21/17 at 00:13; Status DC Tamsulosin HCl (Flomax) 0.4 mg HS PO Last administered on 09/21/17 20:29; Start 09/21/17 at 21:00 Tenofovir Disoproxil Fumarate (Viread) 300 mg DAILY PO Last administered on 09/22 08:46; Start 09/21/17 at 09:00 Hydromorphone HCl (Dilaudid) 4 mg Q4H PRN PO PAIN 3-5 Last administered on 08:45; Start 09/21/17 at 00:15 Morphine Sulfate (Oramorph Sr) 15 mg Q8HR PO Last administered on 09/22/17 05: 59; Start 09/21/17 at 06:00 Duloxetine HCl (Cymbalta Dr) 20 mg DAILY PO Last administered on 09/22/17 08:46 ; Start 09/21/17 at 09:00 Gabapentin (Neurontin) 600 mg Q8HR PO ; Start 09/22/17 at 14:00; Status UNV Ceftriaxone Sodium 1000 mg/ Sodium Chloride 100 ml @ 200 mls/hr Q12H IV ; Start 09/22/17 at 09:30; Status UNV Vancomycin HCl 1000 mg/Sodium Chloride 250 ml @ 250 mls/hr Q12H IV ; Start 09/22 at 09:30; Status UNV Attending Statement I reviewed his MRI Thoracic Spine MRI 09/20/17 0000 Signed Impressions: Service Date/Time: Wednesday, September 20, 2017 22:06 - CONCLUSION: Severe findings in the lumbar spine. See that report for further details. small disc protrusions at multiple levels in the thoracic spine, none producing significant anatomic compromise. Vishal Osorio MD Lumbar Spine MRI 09/20/17 0000 Signed Impressions: Service Date/Time: Wednesday, September 20, 2017 22:06 - CONCLUSION: Pathologic process centered at the L1-2 disc space level with compromise of the adjacent vertebrae felt most probably related to discitis and osteomyelitis. See above discussion. Vishal Osorio MD I suspect he has developed progression of a residual/partially treated/ recurrent infection. I recommend to start broad spectrum antibiotics WINNIE, before he develops a sudden permanent neurological deficit or generalized sepsis. He needs blood cultures andf a CT-gguided aspiration of the disk space. Does not have good pain control. Increase gabapentin and narcotics Paras Fitzgerald MD September 22, 2017 09:44
[2017-09-22] MEDS: MORPHINE SULFATE 4 MG/ML INJ IV PUSH PRN ×3 (10:13→20:46)
[2017-09-22] MEDS: VANCOMYCIN INJ 1,000 MG in SODIUM CHLOR 0.9% 250 ML INJ 250 ML IV SCH ×2 (10:15→20:47)
[2017-09-22] MEDS: cefTRIAXone INJ 1,000 MG in SODIUM CHLORIDE 0.9% INJ 100 ML IV SCH ×2 (10:16→22:37)
--- NOTE | 2017-09-22 12:30 | RADRPT ---
EXAM DATE/TIME: 09/22/2017 12:14 [facility] COMPARISON: MRI LUMBAR SPINE W & W/O CONTRAST, September 20, 2017, 22:06. INDICATIONS : Lspine pain MEDICAL HISTORY : Carcinoma, bladder. Hepatitis C. Diabetes mellitus type 2. Hypertension SURGICAL HISTORY : Appendectomy. Cholecystectomy. ENCOUNTER: Initial ACUITY: 2 days PAIN SCORE: 5/10 LOCATION: lspine FINDINGS: Two view examination was performed. There are five non-rib bearing vertebral bodies. There is eviden ce of discitis at L1-L2 with disc space narrowing and irregularity of the endplates. This has been pr eviously described on an MRI of the lumbar spine of 09/20/2017.. There are degenerative changes involvi ng the rest of the lumbar spine. There is good alignment of the lumbar spine. There is disc space albaro rowing at L5-S1. There is atherosclerotic changes of the aorta. There is good alignment the SI joints . CONCLUSION: 1. Findings characteristic of discitis at L1-2. 2. Degenerative changes involving the lumbar spine. Ken Barnes MD on September 22, 2017 at 12:26 Board Certified Radiologist. This report was verified electronically.
[2017-09-22 14:24] LABS: INTERNATIONAL NORMALIZED RATIO 1.1 RATIO; PROTHROMBIN TIME - PATIENT 11.4 SEC (9.8-11.6)
--- NOTE | 2017-09-22 14:24 | HHI.PR ---
Subjective Remarks Severe pain 10 out of 10 with flexing hip No fever or chills Objective Vitals Vital Signs Date Time Temp Pulse Resp B/P (MAP) Pulse Ox O2 Delivery O2 Flow Rate FiO2 09/22/17 12:08 98.2 60 17 127/73 (91) 100 09/22/17 10:30 16 09/22/17 10:00 16 09/22/17 08:07 98.0 67 18 133/79 (97) 98 09/22/17 07:30 Room Air 09/22/17 04:00 98.9 73 17 109/57 (74) 99 09/22/17 00:00 98.2 70 17 140/71 (94) 100 09/22/17 00:00 Room Air 09/21/17 20:00 Room Air 09/21/17 20:00 98.7 67 17 158/81 (106) 99 09/21/17 16:00 98.9 67 20 137/67 (90) 100 09/21/17 15:26 18 09/21/17 14:47 18 I/O 09/21/17 09/21/17 09/21/17 09/22/17 09/22/17 09/22/17 06:59 14:59 22:59 06:59 14:59 22:59 Intake Total 923 ml 720 ml 930 ml Output Total 750 ml 450 ml Balance 923 ml 720 ml 180 ml -450 ml Intake Oral 240 ml 720 ml 930 ml IV Total 683 ml Output Urine Total 750 ml 450 ml # Voids 4 # Bowel Movements 2 Result Diagram: 09/21/17 0946 09/21/17 0946 Objective Remarks GENERAL: This is a well-nourished, well-developed patient, in no apparent distress. CARDIOVASCULAR: RRR, no gallops, or rubs. RESPIRATORY: Fair air entry bilaterally. No W, R, or R GASTROINTESTINAL: Abdomen soft, non-tender, nondistended. Positive bowel sounds MUSCULOSKELETAL: Extremities without clubbing, cyanosis, or edema. Pedal pulses appreciated, severe pain with flexing hips bilaterally NEUROLOGICAL: Awake and alert. Moves all extremity. Normal speech.no focal neurological deficit A/P Problem List: (1) Osteomyelitis ICD Code: M86.9 - Osteomyelitis, unspecified (2) Weakness ICD Code: R53.1 - Weakness (3) Leukocytosis ICD Code: D72.829 - Elevated white blood cell count, unspecified (4) DM (diabetes mellitus) ICD Code: E11.9 - Type 2 diabetes mellitus without complications Assessment and Plan 1. Osteomyelitis: h/o L-Spine Epidural Abscess, s/p Lumbar Laminectomy by Dr. Fitzgerald 03/25/17, c/o back pain, seen at [facility] and had "abnormal CT", instructed to come to [place] for evaluation. MRI L-Spine w/ pathologic process centered at L1-L2 disc space with compromise of adjacent vertebra likely due to osteomyelitis/discitis, images reviewed by me. S/p Vanc/Cefepime in ER, will continue w/ IV Abx, Consult NxSx for further evaluation, Consult ID as needed for recommendations. 2. Weakness: ambulates w/ cane at baseline, reports worsening lower extremity weakness, PT for eval/tx. 3. Leukocytosis: WBC 11.1, afebrile, continue w/ IV Abx for above, repeat labs in am 4. DM: Sliding scale w/ Accu-Cheks. 5. DVT Prophylaxis: SCD/Teds 09/22: Patient nurse surgery consultation started patient on antibiotic blood culture sent, CT-guided aspiration of the discitis, I will place ID consultation Elevated LFT,> with history of hepatitis B HBe positive in March 2017, will do liver ultrasound and a repeat hepatitis panel check for concomitant hepatitis C Kai Matthews MD September 22, 2017 14:24
[2017-09-22] MEDS ORDERED: LORazepam 2 MG/ML VIAL ONE (15:32)
--- NOTE | 2017-09-22 16:17 | PD.RAD ---
Post Procedure Progress Note Pre Procedure Diagnosis: (1) Abnormal Lumbar Disc (2) Leukocytosis (3) Back pain Post Procedure Diagnosis: (1) Low grade fever (2) Back pain (3) Abnormal Lumbar Disc (4) Leukocytosis Procedure Date: September 22, 2017 Supervising Radiologist: Stanton Beaulieu Proceduralist/Assist: RT Lv(Rohan)(), Other (Scott) Anesthesia: Local, Analgesia Plan of Activity Patient to Unit: Nursing Unit Patient Condition: Good See PACS Report for procedural detail/treatment Spinal Procedure Disc Aspiration L1-L2 Fluid Removal (CCs): 0 Findings: Aspirate from disc placed in culture tube Stanton Beaulieu MD September 22, 2017 16:17
--- NOTE | 2017-09-22 16:36 | RADRPT ---
EXAM DATE/TIME: 09/22/2017 16:02 [facility] COMPARISON: No previous studies available for comparison. INDICATIONS : Patient with a history of discitis. MEDICAL HISTORY : Hepatis C HTN Diabetes COPD Cirrhosis Esophageal varices Ischemic colitis Osteomyelitis SURGICAL HISTORY : Laminectomy Bowel resection Appendectomy Left hand surgery Cholecystectomy ENCOUNTER: Initial ACUITY: 2 days PAIN SCORE: 10/10 LOCATION: Lower back FLUORO TIME: 2.5 minutes IMAGE SERIES: 2 MEDICATION(S): 1.) 2 mg lorazepam (Ativan) IV 2.) 100 mcg fentanyl (Sublimaze) IV DEVICE(S): 1.) 22 gauge spinal needle Core specimen(s) was obtained and submitted to laboratory for pathologic evaluation. PROCEDURE : 1. Fluoroscopically guided needle biopsy. 2. Conscious sedation with continuous EKG and Oximetry monitoring. The risks, benefits and alternatives to the procedure were explained and verbal and written consent w as obtained. The site was prepped in sterile fashion. Full sterile technique was used, including cap, mask, steri le gloves and gown and a large sterile sheet. Hand hygiene and 2% chlorhexidine and/or betadine/alco hol prep was utilized per protocol for cutaneous antisepsis. The skin and subcutaneous tissues were infiltrated with local anesthetic solution. With fluoroscopic guidance a 22 gauge spinal needle was fluoroscopically guided into the severely mal formed disc space. Aspirate was obtained but no significant fluid removed. The aspirate was placed in a culture container Conscious sedation was performed with the prescribed dosages and duration as above in the presence of an independent trained radiology nurse to assist in the monitoring of the patient. EKG and oximetry remained stable throughout the procedure. CONCLUSION: Uncomplicated needle biopsy of the L1-2 disc as above. Stanton Beaulieu MD on September 22, 2017 at 16:33 Board Certified Radiologist. This report was verified electronically.
--- NOTE | 2017-09-22 16:37 | MB ---
cc: Florentino Burnette MD DATE: 09/22/2017 REQUESTING PHYSICIAN: Kai Matthews MD REASON FOR CONSULTATION: Vertebral osteomyelitis, post laminectomy. HISTORY OF PRESENT ILLNESS: This is a 67-year-old white male who has been treated for osteomyelitis and lumbar epidural abscess in late 2016. The patient completed antibiotics towards the end of 04/2017. He was discharged from rehab facility to home. He was doing well at home. He presented to the emergency department on 09/20 because of back pain. He developed increasing weakness in his lower extremities and notes that he was having severe pain when he would stand upright. He was seen at [facility] and a CT scan was performed and he was subsequently transferred to [place] because of an abnormality noted on the CT scan. MRI of the thoracic spine shows a pathologic process centered at L1-L2 disk space level with compromise of the adjacent vertebrae, most probably related to diskitis and osteomyelitis. The patient is due to undergo an aspiration of the lumbar spine this evening. He is afebrile. He denies episodes of chills or fever, nausea or vomiting. He notes that he has pain radiating down his right thigh. He denies problems with bowel incontinence or urinary incontinence. Blood cultures have been obtained. This consultation is requested for antibiotic management for infection. The patient was treated with a 6-week course of IV antibiotics for methicillin-sensitive Staph aureus spinal epidural abscess back in 2016. PAST MEDICAL HISTORY: Hypertension, diabetes mellitus, COPD, hepatitis C, cirrhosis of the liver, esophageal varices, history of bowel resection for ischemic colitis, history of lumbar spine laminectomy in 2017, appendectomy, cholecystectomy, left hand surgery, tympanostomy. ALLERGIES: PENTAZOCINE, CODEINE, BUTORPHANOL, IODINE CONTRAST. MEDICATIONS: Vancomycin, ceftriaxone, Neurontin, morphine sulfate, Flomax, Shaila-Colace, Ecotrin, Symbicort, Levemir, Lopressor, Viread, Cymbalta, insulin. SOCIAL HISTORY: The patient smokes approximately 5 cigarettes a day. No alcohol use. Occasional marijuana use. FAMILY HISTORY: Noncontributory. REVIEW OF SYSTEMS: CONSTITUTIONAL: Denies fever or chills. HEAD, EARS, EYES, NOSE AND THROAT: No problems with visual blurring or diplopia. No nasal drainage. Denies difficulty swallowing or soreness of the throat. CARDIOVASCULAR: Denies palpitation or chest pain. RESPIRATORY: Denies cough or shortness of breath. GASTROINTESTINAL: Denies nausea, vomiting, abdominal pain or diarrhea. GENITOURINARY: No urgency, frequency or dysuria. HEMATOPOIETIC: No easy bruising or bleeding. INTEGUMENTARY: Denies skin rash. NEUROLOGIC: Denies problems with coordination. MUSCULOSKELETAL: Significant for back pain. PSYCHIATRIC: Denies mood changes or depression. PHYSICAL EXAMINATION: GENERAL: This is a slender, well-developed male, who is in no acute distress. He is awake and alert. VITAL SIGNS: Temperature 98.2, BP 127/73, respirations 17, heart rate 60. HEENT: Head atraumatic. Extraocular movements grossly intact. Pupils reactive to light. No icterus. Oropharynx: Moist mucosa. No lesions. NECK: Supple without adenopathy or swelling. LUNGS: Clear breath sounds. HEART: Regular S1 and S2, without murmurs, rubs or gallops. ABDOMEN: Bowel sounds present, soft, nontender. RECTAL: Not performed. EXTREMITIES: No clubbing, cyanosis or edema. SKIN: No rash. NEUROLOGIC: No gross focal finding. PSYCHIATRIC: The patient calm and cooperative. LABORATORY DATA: WBC 8.4, platelets 138, hemoglobin 11.1. Sedimentation rate 41. C-reactive protein 0.4, sodium 135, AST 163, ALT 306. IMPRESSION: 1. Lumbar spine osteomyelitis and diskitis. 2. History of lumbar spine epidural abscess treated a few months ago. Culture at that time showed methicillin sensitive Staphylococcus aureus. 3. Elevated liver function tests. Questionable etiology. The patient has history of hepatitis C and also cirrhosis, probably related. RECOMMENDATIONS: 1. Continue vancomycin. 2. Continue ceftriaxone. 3. Monitor wound culture when it is performed. 4. Monitor blood cultures. 5. Antibiotic adjustments depending on the culture results. I would have preferred to have the biopsy performed prior to giving antibiotics. Hopefully, the antibiotics given will not prevent us from getting a positive culture if there is bacteria involved. Thank you for this consultation. I will monitor the patient's progress with you and make further recommendations upon followup. MD JENNIFER Garay/JAKE , 03:38 PM , 04:36 PM [place]
[2017-09-22] MEDS: TAMSULOSIN HCL 0.4 MG CAP PO SCH (20:45)
[2017-09-23] MEDS: SODIUM CHLOR 0.9% 1000 ML INJ 1,000 ML IV SCH ×3 (01:52→21:05)
[2017-09-23 04:00] VITALS: BP 150/87; PULSE 83; RESP 19; TEMP 97.8; O2SAT 99
[2017-09-23] MEDS: HYDROmorphone HCL 4 MG TAB PO PRN ×5 (04:06→20:31)
[2017-09-23] MEDS: GABAPENTIN 300 MG CAP PO SCH ×3 (05:35→20:31)
[2017-09-23] MEDS: MORPHINE SULFATE 15 MG CONTROLLED RELEASE TAB PO SCH ×3 (05:36→21:04)
[2017-09-23] MEDS: SODIUM CHLORIDE 0.9% FLUSH 10 ML FLUSH IV FLUSH SCH ×2 (07:55→20:59)
[2017-09-23 08:00] VITALS: BP 172/95; PULSE 83; RESP 20; TEMP 98; O2SAT 98
[2017-09-23] MEDS: DOCUSATE SODIUM 50 MG/SENNA 8.6 MG TAB PO SCH ×2 (08:51→20:31)
[2017-09-23] MEDS: BACLOFEN 10 MG TAB PO SCH ×2 (08:51→20:31)
[2017-09-23] MEDS: METOPROLOL TARTRATE 100 MG TAB PO SCH (08:51)
[2017-09-23] MEDS: BUDESONIDE-FORMOTEROL 160/4.5 MCG INHALER INH SCH ×2 (08:51→20:59)
[2017-09-23] MEDS: DULoxetine HCl DR 20 MG CAP PO SCH (08:51)
[2017-09-23] MEDS: TENOFOVIR DISOPROXIL FUMARATE 300 MG TAB PO SCH (08:51)
[2017-09-23] MEDS: ASPIRIN EC 81 MG TABEC PO SCH (08:51)
[2017-09-23] MEDS: INSULIN ASPART SUPPLEMENTAL SCALE SQ SCH ×4 (08:52→20:59)
[2017-09-23] MEDS: INSULIN DETEMIR 100 UNITS/ML VIAL SQ SCH ×2 (08:53→20:59)
[2017-09-23] MEDS: VANCOMYCIN INJ 1,000 MG in SODIUM CHLOR 0.9% 250 ML INJ 250 ML IV SCH ×2 (09:00→21:04)
[2017-09-23] MEDS: cefTRIAXone INJ 1,000 MG in SODIUM CHLORIDE 0.9% INJ 100 ML IV SCH ×2 (10:13→22:33)
[2017-09-23 11:42] VITALS: BP 119/61; PULSE 66; RESP 17; TEMP 98.4; O2SAT 98
--- NOTE | 2017-09-23 13:06 | HHI.IDPN ---
Note Infectious Disease Note Patient notes that he did not sleep last night because of pain in his back. He also notes having a lot of spasms in the back. He notes that the pain radiates down his thighs. Afebrile. Denies chills. Disc biopsy culture pending. 67-year-old white male who has been treated for osteomyelitis and lumbar epidural abscess due to MSSA in late 2016. The patient completed antibiotics towards the end of 04/2017. He was discharged from rehab facility to home. He was doing well at home. He presented to the emergency department on 09/20 because of back pain. He developed increasing weakness in his lower extremities and notes that he was having severe pain when he would stand upright. He was seen at [facility] and a CT scan was performed and he was subsequently transferred to [place] because of an abnormality noted on the CT scan. MRI of the thoracic spine shows a pathologic process centered at L1-L2 disk space level with compromise of the adjacent vertebrae, most probably related to diskitis and osteomyelitis. PAST MEDICAL HISTORY: Hypertension, diabetes mellitus, COPD, hepatitis C, cirrhosis of the liver, esophageal varices, history of bowel resection for ischemic colitis, history of lumbar spine laminectomy in 2017, appendectomy, cholecystectomy, left hand surgery, tympanostomy. ALLERGIES: PENTAZOCINE, CODEINE, BUTORPHANOL, IODINE CONTRAST. MEDICATIONS: Current Medications Medications (Trade) Dose Ordered Sig/Jaya Route PRN Reason Start Time Stop Time Status Last Admin Dose Admin Dextrose (D50w (Vial) Inj) 50 ml UNSCH PRN IV PUSH HYPOGLYCEMIA-SEE COMMENTS 09/21/17 00:00 Glucagon (Glucagon Inj) 1 mg UNSCH PRN OTHER HYPOGLYCEMIA-SEE COMMENTS 09/21/17 00:00 Insulin Aspart (NovoLOG SUPPLEMENTAL SCALE) 1 ACHS SLIDING SCALE SQ 09/21/17 08:00 09/23/17 08:52 Sodium Chloride 1,000 ml @ 100 mls/hr Q10H IV 09/20/17 23:52 09/23/17 10:13 Sodium Chloride (NS Flush) 2 ml UNSCH PRN IV FLUSH FLUSH AFTER USING IV ACCESS 09/21/17 00:00 Sodium Chloride (NS Flush) 2 ml BID IV FLUSH 09/21/17 09:00 09/23/17 07:55 Ondansetron HCl (Zofran Inj) 4 mg Q6H PRN IVP NAUSEA OR VOMITING 09/21/17 00:00 Acetaminophen (Tylenol) 650 mg Q6H PRN PO FEVER/PAIN SCALE 1 TO 2 09/21/17 00:00 Senna/Docusate Sodium (Shaila-Colace) 1 tab BID PO 09/21/17 09:00 09/23/17 08:51 Magnesium Hydroxide (Milk Of Magnesia Liq) 30 ml Q12H PRN PO Mild constipation 09/21/17 00:00 Sennosides (Senokot) 17.2 mg Q12H PRN PO Moderate constipation 09/21/17 00:00 Bisacodyl (Dulcolax Supp) 10 mg DAILY PRN RECTAL SEVERE CONSITIPATION 09/21/17 00:00 Lactulose (Lactulose Liq) 30 ml DAILY PRN PO SEVERE CONSITIPATION 09/21/17 00:00 Aspirin (Ecotrin Ec) 81 mg DAILY PO 09/21/17 09:00 09/23/17 08:51 Baclofen (Lioresal) 10 mg Q12HR PO 09/21/17 09:00 09/23/17 08:51 Budesonide/ Formoterol Fumarate (Symbicort 160-4.5 Mcg Inh) 1 puff Q12HR INH 09/21/17 09:00 09/23/17 08:51 Insulin Detemir (Levemir Inj) 8 units BID SQ 09/21/17 09:00 09/23/17 08:53 Metoprolol Tartrate (Lopressor) 100 mg DAILY PO 09/21/17 09:00 09/23/17 08:51 Tamsulosin HCl (Flomax) 0.4 mg HS PO 09/21/17 21:00 09/22/17 20:45 Tenofovir Disoproxil Fumarate (Viread) 300 mg DAILY PO 09/21/17 09:00 09/23/17 08:51 Hydromorphone HCl (Dilaudid) 4 mg Q4H PRN PO PAIN 3-5 09/21/17 00:15 09/23/17 12:15 Morphine Sulfate (Oramorph Sr) 15 mg Q8HR PO 09/21/17 06:00 09/23/17 05:36 Duloxetine HCl (Cymbalta Dr) 20 mg DAILY PO 09/21/17 09:00 09/23/17 08:51 Gabapentin (Neurontin) 600 mg Q8HR PO 09/22/17 14:00 09/23/17 05:35 Ceftriaxone Sodium 1000 mg/ Sodium Chloride 100 ml @ 200 mls/hr Q12H IV 09/22/17 11:00 09/23/17 10:13 Vancomycin HCl 1000 mg/Sodium Chloride 250 ml @ 250 mls/hr Q12H IV 09/22/17 10:00 09/23/17 09:00 Morphine Sulfate (Morphine Inj) 4 mg Q3H PRN IV PUSH Pain 6-10 09/22/17 10:15 09/22/17 20:46 Objective: Vital Signs Date Time Temp Pulse Resp B/P (MAP) Pulse Ox O2 Delivery O2 Flow Rate FiO2 09/23/17 11:42 98.4 66 17 119/61 (80) 98 09/23/17 08:00 98.0 83 20 172/95 (120) 98 09/23/17 04:00 97.8 83 19 150/87 (108) 99 09/22/17 23:49 98.6 74 20 140/77 (98) 98 09/22/17 20:00 98.2 66 17 127/82 (97) 100 09/22/17 20:00 Room Air 09/22/17 16:37 97.9 69 17 131/82 (98) 100 Microbiology Date/Time Source Procedure Growth Status 09/22/17 16:48 Blood Other Aerobic Blood Culture - Preliminary NO GROWTH IN 1 DAY Resulted 09/22/17 16:48 Blood Other Anaerobic Blood Culture - Preliminary NO GROWTH IN 1 DAY Resulted 09/22/17 14:02 Blood Other Aerobic Blood Culture - Preliminary NO GROWTH IN 1 DAY Resulted 09/22/17 14:02 Blood Other Anaerobic Blood Culture - Preliminary NO GROWTH IN 1 DAY Resulted 09/22/17 14:02 Blood Other Blood Fungal Culture Pending Resulted 09/22/17 14:02 Blood Other Blood Fungal Culture Pending Resulted 09/22/17 16:00 Wound Back Acid Fast Stain Pending Received 09/22/17 16:00 Wound Back Mycobacterial Culture Pending Received 09/22/17 16:00 Wound Back Gram Stain - Final Resulted 09/22/17 16:00 Wound Back Wound Culture Pending Resulted Imaging: Needle Biopsy/Aspiration X-Ray 09/22/17 9529 Signed Impressions: Service Date/Time: Friday, September 22, 2017 16:02 - CONCLUSION: Uncomplicated needle biopsy of the L1-2 disc as above. Stanton Beaulieu MD Lumbar Spine X-Ray 09/22/17 1122 Signed Impressions: Service Date/Time: Friday, September 22, 2017 12:14 - CONCLUSION: 1. Findings characteristic of discitis at L1-2. 2. Degenerative changes involving the lumbar spine. Ken Barnes MD Thoracic Spine MRI 09/20/17 0000 Signed Impressions: Service Date/Time: Wednesday, September 20, 2017 22:06 - CONCLUSION: Severe findings in the lumbar spine. See that report for further details. small disc protrusions at multiple levels in the thoracic spine, none producing significant anatomic compromise. Vishal Osorio MD Lumbar Spine MRI 09/20/17 0000 Signed Impressions: Service Date/Time: Wednesday, September 20, 2017 22:06 - CONCLUSION: Pathologic process centered at the L1-2 disc space level with compromise of the adjacent vertebrae felt most probably related to discitis and osteomyelitis. See above discussion. Vishal Osorio MD PHYSICAL EXAMINATION: GENERAL: Patient in no acute distress. Awake and alert. HEENT: Extraocular movements grossly intact. Pupils reactive to light. No icterus. Oropharynx: Moist mucosa. No lesions. NECK: Supple without adenopathy or swelling. LUNGS: Clear breath sounds. HEART: Regular S1 and S2, without murmurs, rubs or gallops. ABDOMEN: Bowel sounds present, soft, nontender. BACK: Tenderness on palpation of the lumbar spine and lower back adjacent. EXTREMITIES: No clubbing, cyanosis or edema. SKIN: No rash. NEUROLOGIC: No gross focal finding. PSYCHIATRIC: Pleasant calm and cooperative. IMPRESSION: 1. Lumbar spine osteomyelitis and diskitis. Disc aspirate culture pending. 2. History of lumbar spine epidural abscess treated a few months ago. Culture at that time showed methicillin sensitive Staphylococcus aureus. 3. Elevated liver function tests. Questionable etiology. History of hepatitis C. RECOMMENDATIONS: 1. Continue vancomycin. 2. Continue ceftriaxone. 3. Monitor wound culture. 4. Monitor blood cultures. 5. Antibiotic adjustments depending on the culture results. Florentino Bunrette MD September 23, 2017 13:06
--- NOTE | 2017-09-23 15:47 | HHI.PR ---
Subjective Remarks Still with back pain 8 out of 10 no nausea or vomiting Afebrile Liver function test still trending up Objective Vitals Vital Signs Date Time Temp Pulse Resp B/P (MAP) Pulse Ox O2 Delivery O2 Flow Rate FiO2 09/23/17 11:42 98.4 66 17 119/61 (80) 98 09/23/17 08:00 98.0 83 20 172/95 (120) 98 09/23/17 04:00 97.8 83 19 150/87 (108) 99 09/22/17 23:49 98.6 74 20 140/77 (98) 98 09/22/17 20:00 98.2 66 17 127/82 (97) 100 09/22/17 20:00 Room Air 09/22/17 16:37 97.9 69 17 131/82 (98) 100 I/O 09/22/17 09/22/17 09/22/17 09/23/17 09/23/17 09/23/17 06:59 14:59 22:59 06:59 14:59 22:59 Intake Total 930 ml 1210 ml 1339 ml 100 ml Output Total 750 ml 450 ml 800 ml 600 ml Balance 180 ml -450 ml 410 ml 739 ml 100 ml Intake Oral 930 ml 960 ml 240 ml IV Total 250 ml 1099 ml 100 ml Output Urine Total 750 ml 450 ml 800 ml 600 ml # Bowel Movements 1 0 Result Diagram: 09/21/1746 09/21/17945 Objective Remarks GENERAL: This is a well-nourished, well-developed patient, in no apparent distress. CARDIOVASCULAR: RRR, no gallops, or rubs. RESPIRATORY: Fair air entry bilaterally. No W, R, or R GASTROINTESTINAL: Abdomen soft, non-tender, nondistended. Positive bowel sounds MUSCULOSKELETAL: Extremities without clubbing, cyanosis, or edema. Pedal pulses appreciated, severe pain with flexing hips bilaterally NEUROLOGICAL: Awake and alert. Moves all extremity. Normal speech.no focal neurological deficit A/P Problem List: (1) Osteomyelitis ICD Code: M86.9 - Osteomyelitis, unspecified (2) Weakness ICD Code: R53.1 - Weakness (3) Leukocytosis ICD Code: D72.829 - Elevated white blood cell count, unspecified (4) DM (diabetes mellitus) ICD Code: E11.9 - Type 2 diabetes mellitus without complications Assessment and Plan - Osteomyelitis: h/o L-Spine Epidural Abscess, s/p Lumbar Laminectomy by Dr. Fitzgerald 03/25/17, c/o back pain, seen at [facility] and had "abnormal CT", instructed to come to [place] for evaluation. MRI L-Spine w/ pathologic process centered at L1-L2 disc space with compromise of adjacent vertebra likely due to osteomyelitis/discitis, images reviewed by me. S/p Vanc/Cefepime in ER, will continue w/ IV Abx, Consult NxSx for further evaluation, Consult ID as needed for recommendations. - Weakness: ambulates w/ cane at baseline, reports worsening lower extremity weakness, PT for eval/tx. - Elevated LFT,> with history of hepatitis B HBe positive in March 2017, will do liver ultrasound and a repeat hepatitis panel check for concomitant hepatitis C - Leukocytosis: WBC 11.1, afebrile, continue w/ IV Abx for above, repeat labs in am -. DM: Sliding scale w/ Accu-Cheks. - DVT Prophylaxis: SCD/Teds 09/22: Patient nurse surgery consultation started patient on antibiotic blood culture sent, CT-guided aspiration of the discitis, I will place ID consultation Elevated LFT,> with history of hepatitis B HBe positive in March 2017, will do liver ultrasound and a repeat hepatitis panel check for concomitant hepatitis C 09/23: Continue IV antibiotic appreciate ID consultation, neurosurgery following Kai Matthews MD September 23, 2017 15:46
[2017-09-23 16:00] VITALS: BP 123/72; PULSE 66; RESP 20; TEMP 98.2; O2SAT 99
--- NOTE | 2017-09-23 17:00 | RADRPT ---
EXAM DATE/TIME: 09/23/2017 16:20 [place] COMPARISON: US ABDOMEN - LIVER, August 30, 2015, 11:38. INDICATIONS : Elevated labs. MEDICAL HISTORY : Hepatitis C. Cirrhosis. Gastroesophageal reflux disease. Pancreatitis. Renal disease. Bladder cancer. Arthritis. COPD. SURGICAL HISTORY : Appendectomy. Cholecystectomy. Splenectomy. ENCOUNTER: Sequela ACUITY: > 1 year PAIN SCORE: 10/10 LOCATION: Right upper quadrant MEASUREMENTS: LIVER: 20.4 cm length COMMON DUCT: 4 mm RIGHT KIDNEY: 10.0 x 6.6 x 4.5 cm SPLEEN: 17.9 cm length FINDINGS: LIVER: Increased echotexture without focal lesion or ductal dilatation. COMMON DUCT: No intraluminal mass or stone visualized. GALLBLADDER: Surgically absent. PANCREAS: The visualized portions are within normal limits. RIGHT KIDNEY: No hydronephrosis, stone or mass. SPLEEN: No focal lesion. Increased in size CONCLUSION: 1. There is enlarged liver and spleen with liver measuring up to 20 cm in length and spleen up to 17. 9 cm in length. 2. Previous cholecystectomy without biliary ductal dilatation. No free fluid. Theodore Mckay MD on September 23, 2017 at 16:54 Board Certified Radiologist. This report was verified electronically.
[2017-09-23 20:00] VITALS: BP 154/88; PULSE 76; RESP 19; TEMP 97.4; O2SAT 98
--- NOTE | 2017-09-23 20:12 | HHI.NSPN ---
Note Status Status: Progress Note Interval History Interval History 67-year-old male with a lumbar L2-3 epidural abscess with discitis and osteomyelitis who underwent laminectomy by Dr. Fitzgerald in March 2017 with subsequent antibiotic treatment. History of of Hepatitis C, HTN, DM, COPD, Cirrhosis, h/o Esophageal Varices, h/o Ischemic Colitis s/p Bowel Resection States he ambulates w/ a cane, however now w/ increased weakness and worsening pain in his back and legs over the past couple of months. No incontinence reported although has a history of bladder cancer and chronic issues with bladder control intermittently. He went to [facility] yesterday and a CT of the abdomen and pelvis revealed L2-3 destructive abnormality related to the history of osteomyelitis and discitis. He was told to come to [facility] for further management. MRI scan of the lumbar spine obtained reveals a chronic L2-3 endplate destructive and discitis related to erosion with a grade 1 spondylolisthesis and previous laminectomy with a mild ventral thecal sac impingement from disc osteophyte complex. He has been ambulating with a cane. He relates that he was using back brace but it was too rigid for him and did not help and he stopped using it. He denies any fevers or chills. 09/22.Mr Crook reports that he has not received a full course of antibiotics and he was discharged from the hospital without antibiotics. He lost to follow up, he has followed up with his family doctor. Painful. Moves all 4 extremities. No focal neurological deficits Labs, Micro, & Vital Signs Results Date Time Temp Pulse Resp B/P (MAP) Pulse Ox O2 Delivery O2 Flow Rate FiO2 09/23/17 16:00 98.2 66 20 123/72 (89) 99 09/23/17 11:42 98.4 66 17 119/61 (80) 98 09/23/17 08:00 98.0 83 20 172/95 (120) 98 09/23/17 04:00 97.8 83 19 150/87 (108) 99 09/22/17 23:49 98.6 74 20 140/77 (98) 98 09/24/17 07:00 Intake Total 1420 ml Balance 1420 ml Constitutional Vital Signs Date Time Temp Pulse Resp B/P (MAP) Pulse Ox O2 Delivery O2 Flow Rate FiO2 09/23/17 16:00 98.2 66 20 123/72 (89) 99 09/23/17 11:42 98.4 66 17 119/61 (80) 98 09/23/17 08:00 98.0 83 20 172/95 (120) 98 09/23/17 04:00 97.8 83 19 150/87 (108) 99 09/22/17 23:49 98.6 74 20 140/77 (98) 98 09/24/17 07:00 Intake Total 1420 ml Balance 1420 ml Physical Exam GENERAL: This is a well-nourished, well-developed patient, in no apparent distress. SKIN: No rashes, ecchymoses or lesions. Cool and dry. HEAD: Atraumatic. Normocephalic. No temporal or scalp tenderness. EYES: Pupils equal round and reactive. Extraocular motions intact. No scleral icterus. No injection or drainage. ENT: Nose without bleeding, purulent drainage or septal hematoma. Throat without erythema, tonsillar hypertrophy or exudate. Uvula midline. Airway patent. NECK: Trachea midline. No JVD or lymphadenopathy. Supple, nontender, no meningeal signs. CARDIOVASCULAR: Regular rate and rhythm without murmurs, gallops, or rubs. RESPIRATORY: Clear to auscultation. Breath sounds equal bilaterally. No wheezes , rales, or rhonchi. GASTROINTESTINAL: Abdomen soft, non-tender, nondistended. No hepato-splenomegaly , or palpable masses. No guarding. MUSCULOSKELETAL: Extremities without clubbing, cyanosis, or edema. No joint tenderness, effusion, or edema noted. No calf tenderness. Negative Homans sign bilaterally. NEUROLOGICAL: Awake and alert. Cranial nerves II through XII intact. Normal speech. Giveaway weakness in the lower extremities secondary to pain with movement in the back and legs but he has about 4/5 strength. Decreased sensation in a stocking format in his feet with plantar flexion response Attending Statement I suspect he has developed progression of a residual/partially treated/ recurrent infection. Continuebroad spectrum antibiotics, blood cultures andf a CT-guided repeated biopsy Does not have good pain control.with narcotics Pulmonary. Continue aggressive pulmonary toilette, nasotracheal suction, and breathing treatments with nebulizers. Daily PT and OT Renal. Continue to monitor closely urine output, BUN and creatinine Endocrine. Continue to Monitor serial Acu checks and SSI as needed in detail ID continue to monitor for signs of infection Continue Protonix for stress ulcer prophylaxis Continue Kishan hose and SCD's for DVT prophylaxis There is no indication for further surgery at this time. Will sign off Paras Fitzgerald MD September 23, 2017 20:12
[2017-09-23] MEDS: TAMSULOSIN HCL 0.4 MG CAP PO SCH (20:31)
[2017-09-24] VITALS: BP 126/60; PULSE 75; RESP 17; TEMP 97.5; O2SAT 98
[2017-09-24] MEDS: HYDROmorphone HCL 4 MG TAB PO PRN ×4 (00:49→21:06)
[2017-09-24 04:00] VITALS: BP 142/68; PULSE 80; RESP 16; TEMP 98.4; O2SAT 95
[2017-09-24] MEDS: MORPHINE SULFATE 4 MG/ML INJ IV PUSH PRN ×3 (05:36→17:45)
[2017-09-24] MEDS: MORPHINE SULFATE 15 MG CONTROLLED RELEASE TAB PO SCH ×3 (05:36→23:32)
[2017-09-24] MEDS: GABAPENTIN 300 MG CAP PO SCH ×3 (05:36→21:06)
[2017-09-24] MEDS: SODIUM CHLORIDE 0.9% FLUSH 10 ML FLUSH IV FLUSH SCH ×2 (07:38→21:08)
[2017-09-24 08:00] VITALS: BP 127/72; PULSE 80; RESP 20; TEMP 99; O2SAT 99
[2017-09-24] MEDS: BACLOFEN 10 MG TAB PO SCH ×2 (08:10→21:07)
[2017-09-24] MEDS: TENOFOVIR DISOPROXIL FUMARATE 300 MG TAB PO SCH (08:10)
[2017-09-24] MEDS: DOCUSATE SODIUM 50 MG/SENNA 8.6 MG TAB PO SCH ×2 (08:13→21:00)
[2017-09-24] MEDS: ASPIRIN EC 81 MG TABEC PO SCH (08:13)
[2017-09-24] MEDS: DULoxetine HCl DR 20 MG CAP PO SCH (08:13)
[2017-09-24] MEDS: METOPROLOL TARTRATE 100 MG TAB PO SCH (08:13)
[2017-09-24] MEDS: INSULIN DETEMIR 100 UNITS/ML VIAL SQ SCH ×2 (08:14→21:08)
[2017-09-24] MEDS: BUDESONIDE-FORMOTEROL 160/4.5 MCG INHALER INH SCH ×2 (08:14→21:07)
[2017-09-24] MEDS: SODIUM CHLOR 0.9% 1000 ML INJ 1,000 ML IV SCH ×2 (08:22→21:08)
[2017-09-24] MEDS: INSULIN ASPART SUPPLEMENTAL SCALE SQ SCH ×3 (09:03→21:00)
[2017-09-24] MEDS: VANCOMYCIN INJ 1,000 MG in SODIUM CHLOR 0.9% 250 ML INJ 250 ML IV SCH ×2 (09:44→21:09)
[2017-09-24] MEDS: cefTRIAXone INJ 1,000 MG in SODIUM CHLORIDE 0.9% INJ 100 ML IV SCH ×2 (10:40→23:31)
[2017-09-24 12:00] VITALS: BP 157/92; PULSE 63; RESP 20; TEMP 98.4; O2SAT 100
[2017-09-24 12:29] LABS: AUTOMATED NEUTROPHIL # 3.2 TH/MM3 (1.8-7.7); BASOPHIL % 0.5 % (0.0-2.0); EOSINOPHIL # 0.1 TH/MM3 (0-0.4); EOSINOPHIL % 2.7 % (0.0-4.0); HEMATOCRIT 32.5 % (39.0-51.0); HEMOGLOBIN 10.7 GM/DL (13.0-17.0); LYMPH % 28.3 % (9.0-44.0); LYMPHOCYTE # 1.5 TH/MM3 (1.0-4.8); MEAN CELL VOLUME 84.6 FL (80.0-100.0); MEAN CORPUSCULAR HEMOGLOBIN 27.9 PG (27.0-34.0); MEAN PLATELET VOLUME 8.4 FL (7.0-11.0); MONO % 9.7 % (0.0-8.0); MONOCYTE # 0.5 TH/MM3 (0-0.9); NEUT % 58.8 % (16.0-70.0); PLATELET COUNT 124 TH/MM3 (150-450); RED BLOOD COUNT 3.84 MIL/MM3 (4.50-5.90); RED CELL DISTRIBUTION WIDTH 15.5 % (11.6-17.2); WHITE BLOOD COUNT 5.5 TH/MM3 (4.0-11.0)
[2017-09-24 12:55] LABS: ALBUMIN 2.7 GM/DL (3.4-5.0); BICARBONATE 26.7 MEQ/L (21.0-32.0); CREATININE 0.75 MG/DL (0.60-1.30); DIRECT BILIRUBIN ADULT 0.2 MG/DL (0.0-0.2)
[2017-09-24 12:58] LABS: INDIRECT BILIRUBIN 0.1 MG/DL (0.0-0.8); TOTAL BILIRUBIN ADULT 0.3 MG/DL (0.2-1.0); TOTAL PROTEIN 7.1 GM/DL (6.4-8.2)
--- NOTE | 2017-09-24 13:01 | PD.CONS ---
HPI History of Present Illness This is a 67 year old male with hx hepatitis B, hepatitis C, cirrhosis, varices , ischemic colitis s/p bowel resection, epidural abscess, who presented with weakness. GI is consulted for elevated LFTs. He denies any GI symptoms at this time but has some RUQ tenderness on exam. He was evaluated by our service in March of 2017. Egd at that time revealed esophagitis, erythematous gastritis, path benign. He was also treated for HBV with tenofovir, which he says he did not continue taking after discharge b/c he could not afford it. Other than HBV & HCV his liver work up at that time was unremarkable. He denies etoh consumption. US shows enlarged liver, spleen, no ductal dilatation. (Isabelle Gold) PFSH Past Medical History PMH: Hepatitis C, HTN, DM, COPD, Cirrhosis, h/o Esophageal Varices, h/o Ischemic Colitis s/p Bowel Resection, L-Spine Epidural Abscess s/p Laminectomy and h/o L-Spine Osteomyelitis/Discitis Past Surgical History PAST SURGICAL HISTORY: Colon Resection, Appendectomy, Left Hand Surgery, Cholecystectomy, Lumbar Laminectomy, Tympanostomy Tube (Isabelle Gold) Coded Allergies: Iodinated Contrast- Oral and IV Dye (Unverified Allergy, Severe, rash/ flush, 06/04/17) butorphanol (Unverified Allergy, Severe, rash, 06/04/17) codeine (Unverified Allergy, Severe, breathing probs, 06/04/17) pentazocine (Unverified Allergy, Severe, breathing probs, 06/04/17) Family History PAST FAMILY HISTORY: Reviewed. No h/o DM or CAD Social History PAST SOCIAL HISTORY: Negative for alcohol. Positive for tobacco. + Marijuana. (Isabelle Gold) Review of Systems Constitutional: DENIES: Fever Endocrine: DENIES: Polydipsia Eyes: DENIES: Blurred vision Ears, nose, mouth, throat: DENIES: Hearing loss Respiratory: DENIES: Cough Cardiovascular: DENIES: Chest pain Gastrointestinal: COMPLAINS OF: Abdominal pain, DENIES: Black stools, Bloody stools, Nausea, Vomiting, Swelling of Abdomen Genitourinary: DENIES: Hematuria Musculoskeletal: COMPLAINS OF: Back pain Integumentary: DENIES: Pruritus Hematologic/lymphatic: DENIES: Bruising Immunologic/allergic: DENIES: Eczema Neurologic: COMPLAINS OF: Abnormal gait Psychiatric: DENIES: Confusion (Isabelle Gold) GI Exam Vitals I&O Vital Signs Date Time Temp Pulse Resp B/P (MAP) Pulse Ox O2 Delivery O2 Flow Rate FiO2 09/24/17 12:00 98.4 63 20 157/92 (113) 100 09/24/17 08:00 99.0 80 20 127/72 (90) 99 09/24/17 04:00 98.4 80 16 142/68 (92) 95 09/24/17 00:00 97.5 75 17 126/60 (82) 98 09/23/17 23:19 Room Air 09/23/17 20:00 97.4 76 19 154/88 (110) 98 09/23/17 16:00 98.2 66 20 123/72 (89) 99 I/O 09/23/17 09/23/17 09/23/17 09/24/17 09/24/17 09/24/17 07:00 15:00 23:00 07:00 15:00 23:00 Intake Total 1339 ml 100 ml 1320 ml 420 ml 350 ml Output Total 600 ml 700 ml 400 ml Balance 739 ml 100 ml 1320 ml -280 ml -50 ml Intake Oral 240 ml 1320 ml 420 ml IV Total 1099 ml 100 ml 350 ml Output Urine Total 600 ml 700 ml 400 ml # Voids 4 # Bowel Movements 0 3 2 Imaging Last Impressions Liver Ultrasound 09/23/17 0000 Signed Impressions: Service Date/Time: Saturday, September 23, 2017 16:20 - CONCLUSION: 1. There is enlarged liver and spleen with liver measuring up to 20 cm in length and spleen up to 17.9 cm in length. 2. Previous cholecystectomy without biliary ductal dilatation. No free fluid. Theodore Mckay MD Needle Biopsy/Aspiration X-Ray 09/22/17 1445 Signed Impressions: Service Date/Time: Friday, September 22, 2017 16:02 - CONCLUSION: Uncomplicated needle biopsy of the L1-2 disc as above. Stanton Beaulieu MD Lumbar Spine X-Ray 09/22/17 1122 Signed Impressions: Service Date/Time: Friday, September 22, 2017 12:14 - CONCLUSION: 1. Findings characteristic of discitis at L1-2. 2. Degenerative changes involving the lumbar spine. Ken Barnes MD Thoracic Spine MRI 09/20/17 0000 Signed Impressions: Service Date/Time: Wednesday, September 20, 2017 22:06 - CONCLUSION: Severe findings in the lumbar spine. See that report for further details. small disc protrusions at multiple levels in the thoracic spine, none producing significant anatomic compromise. Vishal Osorio MD Lumbar Spine MRI 09/20/17 0000 Signed Impressions: Service Date/Time: Wednesday, September 20, 2017 22:06 - CONCLUSION: Pathologic process centered at the L1-2 disc space level with compromise of the adjacent vertebrae felt most probably related to discitis and osteomyelitis. See above discussion. Vishal Osorio MD Laboratory Test 09/24/17 05:05 09/24/17 11:50 Hepatitis A IgM Antibody NONREACTIVE Hepatitis B Surface Antigen REACTIVE Hepatitis B Core IgM Antibody REACTIVE Hepatitis C IgG Antibody REACTIVE White Blood Count 5.5 TH/MM3 Red Blood Count 3.84 MIL/MM3 Hemoglobin 10.7 GM/DL Hematocrit 32.5 % Mean Corpuscular Volume 84.6 FL Mean Corpuscular Hemoglobin 27.9 PG Mean Corpuscular Hemoglobin Concent 33.0 % Red Cell Distribution Width 15.5 % Platelet Count 124 TH/MM3 Mean Platelet Volume 8.4 FL Neutrophils (%) (Auto) 58.8 % Lymphocytes (%) (Auto) 28.3 % Monocytes (%) (Auto) 9.7 % Eosinophils (%) (Auto) 2.7 % Basophils (%) (Auto) 0.5 % Neutrophils # (Auto) 3.2 TH/MM3 Lymphocytes # (Auto) 1.5 TH/MM3 Monocytes # (Auto) 0.5 TH/MM3 Eosinophils # (Auto) 0.1 TH/MM3 Basophils # (Auto) 0.0 TH/MM3 CBC Comment DIFF FINAL Differential Comment Date/Time Source Procedure Growth Status 09/22/17 16:48 Blood Other Aerobic Blood Culture - Preliminary NO GROWTH IN 2 DAYS Resulted 09/22/17 16:48 Blood Other Anaerobic Blood Culture - Preliminary NO GROWTH IN 2 DAYS Resulted 09/22/17 16:00 Wound Back Acid Fast Stain - Final NO ACID FAST BACILLI SEEN Resulted 09/22/17 16:00 Wound Back Mycobacterial Culture Pending Resulted Physical Examination HEENT: PERRL; normocephalic; atraumatic; no jaundice. CHEST: CTA CARDIAC: RRR ABDOMEN: Soft, nondistended,mild RUQ TTP; bowel sounds are present in all four quadrants. wearing brace EXTREMITIES: No clubbing, cyanosis, or edema. SKIN: Normal; no rash; no jaundice. [employer]: No focal deficits; alert and oriented times three. (Isabelle Gold) Assessment and Plan Plan ASSESSMENT - elevated LFTs - likely r/t HCV, HBV. had complete liver w/u 03/2017 unremarkable other than hepatitis. was on tenofovir and d/c with 10 x 30 day refills but he did not keep taking it d/t finances. mild RUQ on TTP. - osteomyelitis, discitis - neurosurgery following, ID following PLAN - hbv quant - hcv quant - hcv genotype - continue to monitor LFTs pt seen by myself and Dr Shrestha and this note is on his behalf (Isabelle Gold) Physician Comments Seen and examined with SHANELLE, HEp B/C serologies +Ve. Elevation of lft's multifactorial. Lfts seem to be improving. Previous failed treatment attempt with IFN/Ribavirin in the past. Liver quintana initiated. (Wayne Shrestha MD) Isabelle Gold September 24, 2017 13:01 Wayne Shrestha MD September 24, 2017 14:25
[2017-09-24 16:00] VITALS: BP 157/77; PULSE 69; RESP 20; TEMP 98.9; O2SAT 99
--- NOTE | 2017-09-24 16:15 | HHI.IDPN ---
Note Infectious Disease Note Patient continues to have pain in the back. Currently wearing the brace. Continues to have back spasms. He notes that the pain radiates down his thighs. Afebrile. Denies chills. Disc biopsy culture has no growth at 48 hours. 67-year-old white male who has been treated for osteomyelitis and lumbar epidural abscess due to MSSA in late 2016. The patient completed antibiotics towards the end of 04/2017. He was discharged from rehab facility to home. He was doing well at home. He presented to the emergency department on 09/20 because of back pain. He developed increasing weakness in his lower extremities and notes that he was having severe pain when he would stand upright. He was seen at [facility] and a CT scan was performed and he was subsequently transferred to [place] because of an abnormality noted on the CT scan. MRI of the thoracic spine shows a pathologic process centered at L1-L2 disk space level with compromise of the adjacent vertebrae, most probably related to diskitis and osteomyelitis. PAST MEDICAL HISTORY: Hypertension, diabetes mellitus, COPD, hepatitis C, cirrhosis of the liver, esophageal varices, history of bowel resection for ischemic colitis, history of lumbar spine laminectomy in 2017, appendectomy, cholecystectomy, left hand surgery, tympanostomy. ALLERGIES: PENTAZOCINE, CODEINE, BUTORPHANOL, IODINE CONTRAST. MEDICATIONS: Current Medications Medications (Trade) Dose Ordered Sig/Jaya Route PRN Reason Start Time Stop Time Status Last Admin Dose Admin Dextrose (D50w (Vial) Inj) 50 ml UNSCH PRN IV PUSH HYPOGLYCEMIA-SEE COMMENTS 09/21/17 00:00 Glucagon (Glucagon Inj) 1 mg UNSCH PRN OTHER HYPOGLYCEMIA-SEE COMMENTS 09/21/17 00:00 Insulin Aspart (NovoLOG SUPPLEMENTAL SCALE) 1 ACHS SLIDING SCALE SQ 09/21/17 08:00 09/24/17 09:03 Sodium Chloride 1,000 ml @ 100 mls/hr Q10H IV 09/20/17 23:52 09/24/17 08:22 Sodium Chloride (NS Flush) 2 ml UNSCH PRN IV FLUSH FLUSH AFTER USING IV ACCESS 09/21/17 00:00 Sodium Chloride (NS Flush) 2 ml BID IV FLUSH 09/21/17 09:00 09/24/17 07:38 Ondansetron HCl (Zofran Inj) 4 mg Q6H PRN IVP NAUSEA OR VOMITING 09/21/17 00:00 Acetaminophen (Tylenol) 650 mg Q6H PRN PO FEVER/PAIN SCALE 1 TO 2 09/21/17 00:00 Senna/Docusate Sodium (Shaila-Colace) 1 tab BID PO 09/21/17 09:00 09/24/17 08:13 Magnesium Hydroxide (Milk Of Magnesia Liq) 30 ml Q12H PRN PO Mild constipation 09/21/17 00:00 Sennosides (Senokot) 17.2 mg Q12H PRN PO Moderate constipation 09/21/17 00:00 Bisacodyl (Dulcolax Supp) 10 mg DAILY PRN RECTAL SEVERE CONSITIPATION 09/21/17 00:00 Lactulose (Lactulose Liq) 30 ml DAILY PRN PO SEVERE CONSITIPATION 09/21/17 00:00 Aspirin (Ecotrin Ec) 81 mg DAILY PO 09/21/17 09:00 09/24/17 08:13 Baclofen (Lioresal) 10 mg Q12HR PO 09/21/17 09:00 09/24/17 08:10 Budesonide/ Formoterol Fumarate (Symbicort 160-4.5 Mcg Inh) 1 puff Q12HR INH 09/21/17 09:00 09/24/17 08:14 Insulin Detemir (Levemir Inj) 8 units BID SQ 09/21/17 09:00 09/24/17 08:14 Metoprolol Tartrate (Lopressor) 100 mg DAILY PO 09/21/17 09:00 09/24/17 08:13 Tamsulosin HCl (Flomax) 0.4 mg HS PO 09/21/17 21:00 09/23/17 20:31 Tenofovir Disoproxil Fumarate (Viread) 300 mg DAILY PO 09/21/17 09:00 09/24/17 08:10 Hydromorphone HCl (Dilaudid) 4 mg Q4H PRN PO PAIN 3-5 09/21/17 00:15 09/24/17 13:51 Morphine Sulfate (Oramorph Sr) 15 mg Q8HR PO 09/21/17 06:00 09/24/17 13:18 Duloxetine HCl (Cymbalta Dr) 20 mg DAILY PO 09/21/17 09:00 09/24/17 08:13 Gabapentin (Neurontin) 600 mg Q8HR PO 09/22/17 14:00 09/24/17 13:17 Ceftriaxone Sodium 1000 mg/ Sodium Chloride 100 ml @ 200 mls/hr Q12H IV 09/22/17 11:00 09/24/17 10:40 Vancomycin HCl 1000 mg/Sodium Chloride 250 ml @ 250 mls/hr Q12H IV 09/22/17 10:00 09/24/17 09:44 Morphine Sulfate (Morphine Inj) 4 mg Q3H PRN IV PUSH Pain 6-10 09/22/17 10:15 09/24/17 10:40 Objective: Vital Signs Date Time Temp Pulse Resp B/P (MAP) Pulse Ox O2 Delivery O2 Flow Rate FiO2 09/24/17 12:00 98.4 63 20 157/92 (113) 100 09/24/17 08:00 99.0 80 20 127/72 (90) 99 09/24/17 04:00 98.4 80 16 142/68 (92) 95 09/24/17 00:00 97.5 75 17 126/60 (82) 98 09/23/17 23:19 Room Air 09/23/17 20:00 97.4 76 19 154/88 (110) 98 Laboratory Tests Test 09/24/17 11:50 White Blood Count 5.5 TH/MM3 Red Blood Count 3.84 MIL/MM3 Hemoglobin 10.7 GM/DL Hematocrit 32.5 % Mean Corpuscular Volume 84.6 FL Mean Corpuscular Hemoglobin 27.9 PG Mean Corpuscular Hemoglobin Concent 33.0 % Red Cell Distribution Width 15.5 % Platelet Count 124 TH/MM3 Mean Platelet Volume 8.4 FL Neutrophils (%) (Auto) 58.8 % Lymphocytes (%) (Auto) 28.3 % Monocytes (%) (Auto) 9.7 % Eosinophils (%) (Auto) 2.7 % Basophils (%) (Auto) 0.5 % Neutrophils # (Auto) 3.2 TH/MM3 Lymphocytes # (Auto) 1.5 TH/MM3 Monocytes # (Auto) 0.5 TH/MM3 Eosinophils # (Auto) 0.1 TH/MM3 Basophils # (Auto) 0.0 TH/MM3 CBC Comment DIFF FINAL Differential Comment Laboratory Tests Test 09/24/17 11:50 Blood Urea Nitrogen 8 MG/DL Creatinine 0.75 MG/DL Random Glucose 98 MG/DL Total Protein 7.1 GM/DL Albumin 2.7 GM/DL Calcium Level 8.0 MG/DL Alkaline Phosphatase 167 U/L Aspartate Amino Transf (AST/SGOT) 98 U/L Alanine Aminotransferase (ALT/SGPT) 197 U/L Total Bilirubin 0.3 MG/DL Direct Bilirubin 0.2 MG/DL Sodium Level 140 MEQ/L Potassium Level 4.3 MEQ/L Chloride Level 107 MEQ/L Carbon Dioxide Level 26.7 MEQ/L Anion Gap 6 MEQ/L Estimat Glomerular Filtration Rate 104 ML/MIN Indirect Bilirubin 0.1 MG/DL Microbiology Date/Time Source Procedure Growth Status 09/22/17 16:48 Blood Other Aerobic Blood Culture - Preliminary NO GROWTH IN 2 DAYS Resulted 09/22/17 16:48 Blood Other Anaerobic Blood Culture - Preliminary NO GROWTH IN 2 DAYS Resulted 09/22/17 14:02 Blood Other Aerobic Blood Culture - Preliminary NO GROWTH IN 2 DAYS Resulted 09/22/17 14:02 Blood Other Anaerobic Blood Culture - Preliminary NO GROWTH IN 2 DAYS Resulted 09/22/17 14:02 Blood Other Blood Fungal Culture Pending Resulted 09/22/17 14:02 Blood Other Blood Fungal Culture Pending Resulted 09/22/17 16:00 Wound Back Acid Fast Stain - Final NO ACID FAST BACILLI SEEN Resulted 09/22/17 16:00 Wound Back Mycobacterial Culture Pending Resulted 09/22/17 16:00 Wound Back Gram Stain - Final Resulted 09/22/17 16:00 Wound Back Wound Culture - Preliminary NO GROWTH IN 48 HOURS. Resulted Microbiology Date/Time Source Procedure Growth Status 09/22/17 16:48 Blood Other Aerobic Blood Culture - Preliminary NO GROWTH IN 1 DAY Resulted 09/22/17 16:48 Blood Other Anaerobic Blood Culture - Preliminary NO GROWTH IN 1 DAY Resulted 09/22/17 14:02 Blood Other Aerobic Blood Culture - Preliminary NO GROWTH IN 1 DAY Resulted 09/22/17 14:02 Blood Other Anaerobic Blood Culture - Preliminary NO GROWTH IN 1 DAY Resulted 09/22/17 14:02 Blood Other Blood Fungal Culture Pending Resulted 09/22/17 14:02 Blood Other Blood Fungal Culture Pending Resulted 09/22/17 16:00 Wound Back Acid Fast Stain Pending Received 09/22/17 16:00 Wound Back Mycobacterial Culture Pending Received 09/22/17 16:00 Wound Back Gram Stain - Final Resulted 09/22/17 16:00 Wound Back Wound Culture Pending Resulted Imaging: Liver Ultrasound 09/23/17 0000 Signed Impressions: Service Date/Time: Saturday, September 23, 2017 16:20 - CONCLUSION: 1. There is enlarged liver and spleen with liver measuring up to 20 cm in length and spleen up to 17.9 cm in length. 2. Previous cholecystectomy without biliary ductal dilatation. No free fluid. Theodore Mckay MD Needle Biopsy/Aspiration X-Ray 09/22/17 1445 Signed Impressions: Service Date/Time: Friday, September 22, 2017 16:02 - CONCLUSION: Uncomplicated needle biopsy of the L1-2 disc as above. Stanton Beaulieu MD Lumbar Spine X-Ray 09/22/17 1122 Signed Impressions: Service Date/Time: Friday, September 22, 2017 12:14 - CONCLUSION: 1. Findings characteristic of discitis at L1-2. 2. Degenerative changes involving the lumbar spine. Ken Barnes MD Thoracic Spine MRI 09/20/17 0000 Signed Impressions: Service Date/Time: Wednesday, September 20, 2017 22:06 - CONCLUSION: Severe findings in the lumbar spine. See that report for further details. small disc protrusions at multiple levels in the thoracic spine, none producing significant anatomic compromise. Vishal Osorio MD Lumbar Spine MRI 09/20/17 0000 Signed Impressions: Service Date/Time: Wednesday, September 20, 2017 22:06 - CONCLUSION: Pathologic process centered at the L1-2 disc space level with compromise of the adjacent vertebrae felt most probably related to discitis and osteomyelitis. See above discussion. Vishal Osorio MD PHYSICAL EXAMINATION: GENERAL: No acute distress. Awake and alert. HEENT: Extraocular movements grossly intact. Pupils reactive to light. No icterus. Oropharynx: Moist mucosa. No lesions. NECK: Supple without adenopathy or swelling. LUNGS: Clear breath sounds. HEART: Regular S1 and S2, without murmurs, rubs or gallops. ABDOMEN: Bowel sounds present, soft, nontender. EXTREMITIES: No clubbing, cyanosis or edema. SKIN: No rash. NEUROLOGIC: No gross focal finding. PSYCHIATRIC: Pleasant, calm and cooperative. IMPRESSION: 1. Lumbar spine osteomyelitis and diskitis. Disc aspirate culture pending. 2. History of lumbar spine epidural abscess treated a few months ago. Culture at that time showed methicillin sensitive Staphylococcus aureus. 3. Elevated liver function tests. Questionable etiology. History of hepatitis C and B. RECOMMENDATIONS: 1. Continue vancomycin. 2. Continue ceftriaxone. 3. Monitor wound culture. 4. Monitor blood cultures. 5. If the culture is negative, the treatment decision will be difficult since the patient has had Infection and treatment before. He may need to have a biopsy of the disc space involved for culture since the aspirate may have been inadequate. Florentino Burnette MD September 24, 2017 16:15
--- NOTE | 2017-09-24 18:05 | HHI.PR ---
Subjective Remarks Patient complaining still from back pain, he reported he did not know or being aware of having hepatitis B Patient is here for vertebral osteomyelitis however he was also found to have hepatitis B and C and enlarged liver and spleen GI consulted, patient already had disc aspiration and awaiting pathology and culture, ID following as well as neurosurgery Objective Vitals Vital Signs Date Time Temp Pulse Resp B/P (MAP) Pulse Ox O2 Delivery O2 Flow Rate FiO2 09/24/17 12:00 98.4 63 20 157/92 (113) 100 09/24/17 08:00 99.0 80 20 127/72 (90) 99 09/24/17 04:00 98.4 80 16 142/68 (92) 95 09/24/17 00:00 97.5 75 17 126/60 (82) 98 09/23/17 23:19 Room Air 09/23/17 20:00 97.4 76 19 154/88 (110) 98 I/O 09/23/17 09/23/17 09/23/17 09/24/17 09/24/17 09/24/17 07:00 15:00 23:00 07:00 15:00 23:00 Intake Total 1339 ml 100 ml 1320 ml 420 ml 350 ml Output Total 600 ml 700 ml 400 ml Balance 739 ml 100 ml 1320 ml -280 ml -50 ml Intake Oral 240 ml 1320 ml 420 ml IV Total 1099 ml 100 ml 350 ml Output Urine Total 600 ml 700 ml 400 ml # Voids 4 # Bowel Movements 0 3 2 Result Diagram: 09/24/17 1150 09/24/17 1150 Objective Remarks GENERAL: This is a well-nourished, well-developed patient, in no apparent distress. CARDIOVASCULAR: RRR, no gallops, or rubs. RESPIRATORY: Fair air entry bilaterally. No W, R, or R GASTROINTESTINAL: Abdomen soft, non-tender, nondistended. Positive bowel sounds MUSCULOSKELETAL: Extremities without clubbing, cyanosis, or edema. Pedal pulses appreciated, severe pain with flexing hips bilaterally NEUROLOGICAL: Awake and alert. Moves all extremity. Normal speech.no focal neurological deficit A/P Problem List: (1) Osteomyelitis ICD Code: M86.9 - Osteomyelitis, unspecified (2) Weakness ICD Code: R53.1 - Weakness (3) Leukocytosis ICD Code: D72.829 - Elevated white blood cell count, unspecified (4) DM (diabetes mellitus) ICD Code: E11.9 - Type 2 diabetes mellitus without complications Assessment and Plan - Osteomyelitis: h/o L-Spine Epidural Abscess, s/p Lumbar Laminectomy by Dr. Fitzgerald 03/25/17, c/o back pain, seen at [facility] and had "abnormal CT", instructed to come to [place] for evaluation. MRI L-Spine w/ pathologic process centered at L1-L2 disc space with compromise of adjacent vertebra likely due to osteomyelitis/discitis, images reviewed by me. S/p Vanc/Cefepime in ER, will continue w/ IV Abx, Consult NxSx for further evaluation, Consult ID as needed for recommendations. - Weakness: ambulates w/ cane at baseline, reports worsening lower extremity weakness, PT for eval/tx. - Elevated LFT,> with history of hepatitis B HBe positive in March 2017, will do liver ultrasound and a repeat hepatitis panel check for concomitant hepatitis C - Leukocytosis: WBC 11.1, afebrile, continue w/ IV Abx for above, repeat labs in am -. DM: Sliding scale w/ Accu-Cheks. - DVT Prophylaxis: SCD/Teds 09/22: Patient nurse surgery consultation started patient on antibiotic blood culture sent, CT-guided aspiration of the discitis, I will place ID consultation Elevated LFT,> with history of hepatitis B HBe positive in March 2017, will do liver ultrasound and a repeat hepatitis panel check for concomitant hepatitis C 09/23: Continue IV antibiotic appreciate ID consultation, neurosurgery following 09/24: Appreciate GI consultation, positive hepatitis B and C, CT abdomen showing enlarged liver and spleen, continue IV antibiotic per ID, awaiting disc aspiration culture and pathology Kai Matthews MD September 24, 2017 18:04
[2017-09-24 20:09] VITALS: BP 178/79; PULSE 73; RESP 16; TEMP 99.1; O2SAT 100
[2017-09-24] MEDS: TAMSULOSIN HCL 0.4 MG CAP PO SCH (21:07)
[2017-09-25] VITALS (7 sets, daily range): BP systolic 128–165; BP diastolic 70–83; PULSE 64–72; RESP 16–20; TEMP 98.2–98.8; O2SAT 97–99
[2017-09-25] MEDS: HYDROmorphone HCL 4 MG TAB PO PRN ×7 (01:11→22:35)
[2017-09-25] MEDS: GABAPENTIN 300 MG CAP PO SCH ×3 (05:14→20:33)
[2017-09-25] MEDS: MORPHINE SULFATE 15 MG CONTROLLED RELEASE TAB PO SCH ×3 (06:11→23:39)
[2017-09-25 06:26] LABS: AUTOMATED NEUTROPHIL # 3.7 TH/MM3 (1.8-7.7); BASOPHIL % 0.7 % (0.0-2.0); EOSINOPHIL # 0.2 TH/MM3 (0-0.4); EOSINOPHIL % 3.2 % (0.0-4.0); HEMATOCRIT 30.5 % (39.0-51.0); HEMOGLOBIN 10.5 GM/DL (13.0-17.0); LYMPH % 22.6 % (9.0-44.0); LYMPHOCYTE # 1.3 TH/MM3 (1.0-4.8); MEAN CELL VOLUME 82.7 FL (80.0-100.0); MEAN CORPUSCULAR HEMOGLOBIN 28.6 PG (27.0-34.0); MEAN CORPUSCULAR HGB CONC 34.6 % (32.0-36.0); MEAN PLATELET VOLUME 8.3 FL (7.0-11.0); MONO % 9.1 % (0.0-8.0); MONOCYTE # 0.5 TH/MM3 (0-0.9); NEUT % 64.4 % (16.0-70.0); PLATELET COUNT 118 TH/MM3 (150-450); RED BLOOD COUNT 3.68 MIL/MM3 (4.50-5.90); RED CELL DISTRIBUTION WIDTH 15.4 % (11.6-17.2); WHITE BLOOD COUNT 5.8 TH/MM3 (4.0-11.0)
[2017-09-25] MEDS: INSULIN DETEMIR 100 UNITS/ML VIAL SQ SCH ×2 (08:26→20:34)
[2017-09-25] MEDS: INSULIN ASPART SUPPLEMENTAL SCALE SQ SCH ×4 (08:26→20:35)
[2017-09-25] MEDS: BUDESONIDE-FORMOTEROL 160/4.5 MCG INHALER INH SCH ×2 (08:27→20:36)
[2017-09-25] MEDS: SODIUM CHLORIDE 0.9% FLUSH 10 ML FLUSH IV FLUSH SCH ×2 (08:27→20:36)
[2017-09-25] MEDS: DOCUSATE SODIUM 50 MG/SENNA 8.6 MG TAB PO SCH ×2 (08:27→20:36)
[2017-09-25] MEDS: DULoxetine HCl DR 20 MG CAP PO SCH (08:28)
[2017-09-25] MEDS: BACLOFEN 10 MG TAB PO SCH ×2 (08:28→20:33)
[2017-09-25] MEDS: TENOFOVIR DISOPROXIL FUMARATE 300 MG TAB PO SCH (08:28)
[2017-09-25] MEDS: ASPIRIN EC 81 MG TABEC PO SCH (08:29)
[2017-09-25] MEDS: METOPROLOL TARTRATE 100 MG TAB PO SCH ×2 (08:29→08:54)
[2017-09-25] MEDS: MORPHINE SULFATE 4 MG/ML INJ IV PUSH PRN ×2 (08:33→20:34)
[2017-09-25] MEDS: VANCOMYCIN INJ 1,000 MG in SODIUM CHLOR 0.9% 250 ML INJ 250 ML IV SCH ×2 (10:16→20:35)
[2017-09-25] MEDS: cefTRIAXone INJ 1,000 MG in SODIUM CHLORIDE 0.9% INJ 100 ML IV SCH ×2 (10:52→23:39)
--- NOTE | 2017-09-25 12:49 | HHI.IDPN ---
Note Infectious Disease Note Patient continues to have pain in the back. Change in the character of the pain. He notes that is approximately 7/10 scale. Afebrile. Denies fever or chills. Disc biopsy culture has no growth at 72 hours. 67-year-old white male who has been treated for osteomyelitis and lumbar epidural abscess due to MSSA in late 2016. The patient completed antibiotics towards the end of 04/2017. He was discharged from rehab facility to home. He was doing well at home. He presented to the emergency department on 09/20 because of back pain. He developed increasing weakness in his lower extremities and notes that he was having severe pain when he would stand upright. He was seen at [facility] and a CT scan was performed and he was subsequently transferred to [place] because of an abnormality noted on the CT scan. MRI of the thoracic spine shows a pathologic process centered at L1-L2 disk space level with compromise of the adjacent vertebrae, most probably related to diskitis and osteomyelitis. PAST MEDICAL HISTORY: Hypertension, diabetes mellitus, COPD, hepatitis C, cirrhosis of the liver, esophageal varices, history of bowel resection for ischemic colitis, history of lumbar spine laminectomy in 2017, appendectomy, cholecystectomy, left hand surgery, tympanostomy. ALLERGIES: PENTAZOCINE, CODEINE, BUTORPHANOL, IODINE CONTRAST. MEDICATIONS: Current Medications Medications (Trade) Dose Ordered Sig/Jaya Route PRN Reason Start Time Stop Time Status Last Admin Dose Admin Dextrose (D50w (Vial) Inj) 50 ml UNSCH PRN IV PUSH HYPOGLYCEMIA-SEE COMMENTS 09/21/17 00:00 Glucagon (Glucagon Inj) 1 mg UNSCH PRN OTHER HYPOGLYCEMIA-SEE COMMENTS 09/21/17 00:00 Insulin Aspart (NovoLOG SUPPLEMENTAL SCALE) 1 ACHS SLIDING SCALE SQ 09/21/17 08:00 09/25/17 08:26 Sodium Chloride 1,000 ml @ 100 mls/hr Q10H IV 09/20/17 23:52 09/24/17 21:08 Sodium Chloride (NS Flush) 2 ml UNSCH PRN IV FLUSH FLUSH AFTER USING IV ACCESS 09/21/17 00:00 Sodium Chloride (NS Flush) 2 ml BID IV FLUSH 09/21/17 09:00 09/25/17 08:27 Ondansetron HCl (Zofran Inj) 4 mg Q6H PRN IVP NAUSEA OR VOMITING 09/21/17 00:00 Acetaminophen (Tylenol) 650 mg Q6H PRN PO FEVER/PAIN SCALE 1 TO 2 09/21/17 00:00 Senna/Docusate Sodium (Shaila-Colace) 1 tab BID PO 09/21/17 09:00 09/24/17 08:13 Magnesium Hydroxide (Milk Of Magnesia Liq) 30 ml Q12H PRN PO Mild constipation 09/21/17 00:00 Sennosides (Senokot) 17.2 mg Q12H PRN PO Moderate constipation 09/21/17 00:00 Bisacodyl (Dulcolax Supp) 10 mg DAILY PRN RECTAL SEVERE CONSITIPATION 09/21/17 00:00 Lactulose (Lactulose Liq) 30 ml DAILY PRN PO SEVERE CONSITIPATION 09/21/17 00:00 Aspirin (Ecotrin Ec) 81 mg DAILY PO 09/21/17 09:00 09/25/17 08:29 Baclofen (Lioresal) 10 mg Q12HR PO 09/21/17 09:00 09/25/17 08:28 Budesonide/ Formoterol Fumarate (Symbicort 160-4.5 Mcg Inh) 1 puff Q12HR INH 09/21/17 09:00 09/25/17 08:27 Insulin Detemir (Levemir Inj) 8 units BID SQ 09/21/17 09:00 09/25/17 08:26 Metoprolol Tartrate (Lopressor) 100 mg DAILY PO 09/21/17 09:00 09/25/17 08:54 Tamsulosin HCl (Flomax) 0.4 mg HS PO 09/21/17 21:00 09/24/17 21:07 Tenofovir Disoproxil Fumarate (Viread) 300 mg DAILY PO 09/21/17 09:00 09/25/17 08:28 Hydromorphone HCl (Dilaudid) 4 mg Q4H PRN PO PAIN 3-5 09/21/17 00:15 09/25/17 10:19 Morphine Sulfate (Oramorph Sr) 15 mg Q8HR PO 09/21/17 06:00 09/25/17 06:11 Duloxetine HCl (Cymbalta Dr) 20 mg DAILY PO 09/21/17 09:00 09/25/17 08:28 Gabapentin (Neurontin) 600 mg Q8HR PO 09/22/17 14:00 09/25/17 05:14 Ceftriaxone Sodium 1000 mg/ Sodium Chloride 100 ml @ 200 mls/hr Q12H IV 09/22/17 11:00 09/25/17 10:52 Vancomycin HCl 1000 mg/Sodium Chloride 250 ml @ 250 mls/hr Q12H IV 09/22/17 10:00 09/25/17 10:16 Morphine Sulfate (Morphine Inj) 4 mg Q3H PRN IV PUSH Pain 6-10 09/22/17 10:15 09/25/17 08:33 Objective: Vital Signs Date Time Temp Pulse Resp B/P (MAP) Pulse Ox O2 Delivery O2 Flow Rate FiO2 09/25/17 12:23 98.4 64 17 131/74 (93) 99 09/25/17 08:07 98.4 65 17 128/74 (92) 98 09/25/17 08:00 Room Air 09/25/17 04:00 98.5 72 20 165/83 (110) 98 09/25/17 00:32 16 09/25/17 00:00 98.2 72 20 147/70 (95) 98 09/24/17 20:09 99.1 73 16 178/79 (112) 100 09/24/17 19:45 Room Air 09/24/17 16:00 98.9 69 20 157/77 (103) 99 Laboratory Tests Test 09/24/17 11:50 09/25/17 05:53 White Blood Count 5.5 TH/MM3 5.8 TH/MM3 Red Blood Count 3.84 MIL/MM3 3.68 MIL/MM3 Hemoglobin 10.7 GM/DL 10.5 GM/DL Hematocrit 32.5 % 30.5 % Mean Corpuscular Volume 84.6 FL 82.7 FL Mean Corpuscular Hemoglobin 27.9 PG 28.6 PG Mean Corpuscular Hemoglobin Concent 33.0 % 34.6 % Red Cell Distribution Width 15.5 % 15.4 % Platelet Count 124 TH/MM3 118 TH/MM3 Mean Platelet Volume 8.4 FL 8.3 FL Neutrophils (%) (Auto) 58.8 % 64.4 % Lymphocytes (%) (Auto) 28.3 % 22.6 % Monocytes (%) (Auto) 9.7 % 9.1 % Eosinophils (%) (Auto) 2.7 % 3.2 % Basophils (%) (Auto) 0.5 % 0.7 % Neutrophils # (Auto) 3.2 TH/MM3 3.7 TH/MM3 Lymphocytes # (Auto) 1.5 TH/MM3 1.3 TH/MM3 Monocytes # (Auto) 0.5 TH/MM3 0.5 TH/MM3 Eosinophils # (Auto) 0.1 TH/MM3 0.2 TH/MM3 Basophils # (Auto) 0.0 TH/MM3 0.0 TH/MM3 CBC Comment DIFF FINAL DIFF FINAL Differential Comment Laboratory Tests Test 09/24/17 11:50 Blood Urea Nitrogen 8 MG/DL Creatinine 0.75 MG/DL Random Glucose 98 MG/DL Total Protein 7.1 GM/DL Albumin 2.7 GM/DL Calcium Level 8.0 MG/DL Alkaline Phosphatase 167 U/L Aspartate Amino Transf (AST/SGOT) 98 U/L Alanine Aminotransferase (ALT/SGPT) 197 U/L Total Bilirubin 0.3 MG/DL Direct Bilirubin 0.2 MG/DL Sodium Level 140 MEQ/L Potassium Level 4.3 MEQ/L Chloride Level 107 MEQ/L Carbon Dioxide Level 26.7 MEQ/L Anion Gap 6 MEQ/L Estimat Glomerular Filtration Rate 104 ML/MIN Indirect Bilirubin 0.1 MG/DL Microbiology Date/Time Source Procedure Growth Status 09/22/17 16:48 Blood Other Aerobic Blood Culture - Preliminary NO GROWTH IN 3 DAYS Resulted 09/22/17 16:48 Blood Other Anaerobic Blood Culture - Preliminary NO GROWTH IN 3 DAYS Resulted 09/22/17 14:02 Blood Other Aerobic Blood Culture - Preliminary NO GROWTH IN 3 DAYS Resulted 09/22/17 14:02 Blood Other Anaerobic Blood Culture - Preliminary NO GROWTH IN 3 DAYS Resulted 09/22/17 14:02 Blood Other Blood Fungal Culture Pending Resulted 09/22/17 14:02 Blood Other Blood Fungal Culture Pending Resulted 09/22/17 16:00 Wound Back Acid Fast Stain - Final NO ACID FAST BACILLI SEEN Resulted 09/22/17 16:00 Wound Back Mycobacterial Culture Pending Resulted 09/22/17 16:00 Wound Back Gram Stain - Final Complete 09/22/17 16:00 Wound Back Wound Culture - Final NO GROWTH IN 72 HRS.--AEROBICALLY OR ... Complete Microbiology Date/Time Source Procedure Growth Status 09/22/17 16:48 Blood Other Aerobic Blood Culture - Preliminary NO GROWTH IN 1 DAY Resulted 09/22/17 16:48 Blood Other Anaerobic Blood Culture - Preliminary NO GROWTH IN 1 DAY Resulted 09/22/17 14:02 Blood Other Aerobic Blood Culture - Preliminary NO GROWTH IN 1 DAY Resulted 09/22/17 14:02 Blood Other Anaerobic Blood Culture - Preliminary NO GROWTH IN 1 DAY Resulted 09/22/17 14:02 Blood Other Blood Fungal Culture Pending Resulted 09/22/17 14:02 Blood Other Blood Fungal Culture Pending Resulted 09/22/17 16:00 Wound Back Acid Fast Stain Pending Received 09/22/17 16:00 Wound Back Mycobacterial Culture Pending Received 09/22/17 16:00 Wound Back Gram Stain - Final Resulted 09/22/17 16:00 Wound Back Wound Culture Pending Resulted Imaging: Liver Ultrasound 09/23/17 0000 Signed Impressions: Service Date/Time: Saturday, September 23, 2017 16:20 - CONCLUSION: 1. There is enlarged liver and spleen with liver measuring up to 20 cm in length and spleen up to 17.9 cm in length. 2. Previous cholecystectomy without biliary ductal dilatation. No free fluid. Theodore Mckay MD Needle Biopsy/Aspiration X-Ray 09/22/17 1445 Signed Impressions: Service Date/Time: Friday, September 22, 2017 16:02 - CONCLUSION: Uncomplicated needle biopsy of the L1-2 disc as above. Stanton Beaulieu MD Lumbar Spine X-Ray 09/22/17 1122 Signed Impressions: Service Date/Time: Friday, September 22, 2017 12:14 - CONCLUSION: 1. Findings characteristic of discitis at L1-2. 2. Degenerative changes involving the lumbar spine. Ken Barnes MD Thoracic Spine MRI 09/20/17 0000 Signed Impressions: Service Date/Time: Wednesday, September 20, 2017 22:06 - CONCLUSION: Severe findings in the lumbar spine. See that report for further details. small disc protrusions at multiple levels in the thoracic spine, none producing significant anatomic compromise. Vishal Osorio MD Lumbar Spine MRI 09/20/17 0000 Signed Impressions: Service Date/Time: Wednesday, September 20, 2017 22:06 - CONCLUSION: Pathologic process centered at the L1-2 disc space level with compromise of the adjacent vertebrae felt most probably related to discitis and osteomyelitis. See above discussion. Vishal Osorio MD PHYSICAL EXAMINATION: GENERAL: No acute distress. Awake and alert. HEENT: Extraocular movements grossly intact. Pupils reactive to light. No icterus. Oropharynx: Moist mucosa. No lesions. NECK: Supple without adenopathy or swelling. LUNGS: Clear breath sounds. HEART: Regular S1 and S2, without murmurs, rubs or gallops. ABDOMEN: Bowel sounds present, soft, nontender. EXTREMITIES: No clubbing, cyanosis or edema. SKIN: No rash. NEUROLOGIC: No gross focal finding. PSYCHIATRIC: Pleasant, calm and cooperative. IMPRESSION: 1. Lumbar spine osteomyelitis and diskitis on MRI. Disc aspirate negative. 2. History of lumbar spine epidural abscess treated a few months ago. Culture at that time showed methicillin sensitive Staphylococcus aureus. 3. Elevated liver function tests. Questionable etiology. History of hepatitis C and B. Patient has no fever and white blood cell count has been normal and his cultures are negative. At this point I am not convinced that he has bacterial infection. It is possible that the sampling May not have been adequate. I would prefer to have a biopsy and culture to determine whether the patient needs to be put on long-term antibiotics again. This will be discussed with Dr. Fitzgerald. RECOMMENDATIONS: 1. Continue vancomycin. 2. Continue ceftriaxone. Call placed to Dr. Fitzgerald. Florentino Burnette MD September 25, 2017 12:49
[2017-09-25] MEDS: SODIUM CHLOR 0.9% 1000 ML INJ 1,000 ML IV SCH ×2 (13:52→23:40)
--- NOTE | 2017-09-25 13:52 | HHI.GIFU ---
Subjective Remarks Pt sitting up in bed, eating lunch. Just ambulated with therapist. (Isabelle Gold) Objective Vitals I&O Vital Signs Date Time Temp Pulse Resp B/P (MAP) Pulse Ox O2 Delivery O2 Flow Rate FiO2 09/25/17 12:23 98.4 64 17 131/74 (93) 99 09/25/17 08:07 98.4 65 17 128/74 (92) 98 09/25/17 08:00 Room Air 09/25/17 04:00 98.5 72 20 165/83 (110) 98 09/25/17 00:32 16 09/25/17 00:00 98.2 72 20 147/70 (95) 98 09/24/17 20:09 99.1 73 16 178/79 (112) 100 09/24/17 19:45 Room Air 09/24/17 16:00 98.9 69 20 157/77 (103) 99 I/O 09/24/17 09/24/17 09/24/17 09/25/17 09/25/17 09/25/17 07:00 15:00 23:00 07:00 15:00 23:00 Intake Total 420 ml 350 ml 1200 ml 440 ml Output Total 700 ml 400 ml 900 ml 1200 ml Balance -280 ml -50 ml 300 ml -760 ml Intake Oral 420 ml 1200 ml 440 ml IV Total 350 ml Output Urine Total 700 ml 400 ml 900 ml 1200 ml # Voids 2 # Bowel Movements 2 2 Laboratory Laboratory Tests Test 09/25/17 05:53 White Blood Count 5.8 Red Blood Count 3.68 Hemoglobin 10.5 Hematocrit 30.5 Mean Corpuscular Volume 82.7 Mean Corpuscular Hemoglobin 28.6 Mean Corpuscular Hemoglobin Concent 34.6 Red Cell Distribution Width 15.4 Platelet Count 118 Mean Platelet Volume 8.3 Neutrophils (%) (Auto) 64.4 Lymphocytes (%) (Auto) 22.6 Monocytes (%) (Auto) 9.1 Eosinophils (%) (Auto) 3.2 Basophils (%) (Auto) 0.7 Neutrophils # (Auto) 3.7 Lymphocytes # (Auto) 1.3 Monocytes # (Auto) 0.5 Eosinophils # (Auto) 0.2 Basophils # (Auto) 0.0 CBC Comment DIFF FINAL Differential Comment Date/Time Source Procedure Growth Status 09/22/17 16:48 Blood Other Aerobic Blood Culture - Preliminary NO GROWTH IN 3 DAYS Resulted 09/22/17 16:48 Blood Other Anaerobic Blood Culture - Preliminary NO GROWTH IN 3 DAYS Resulted 09/22/17 16:00 Wound Back Acid Fast Stain - Final NO ACID FAST BACILLI SEEN Resulted 09/22/17 16:00 Wound Back Mycobacterial Culture Pending Resulted Imaging Last Impressions Liver Ultrasound 09/23/17 0000 Signed Impressions: Service Date/Time: Saturday, September 23, 2017 16:20 - CONCLUSION: 1. There is enlarged liver and spleen with liver measuring up to 20 cm in length and spleen up to 17.9 cm in length. 2. Previous cholecystectomy without biliary ductal dilatation. No free fluid. Theodore Mckay MD Needle Biopsy/Aspiration X-Ray 09/22/17 1445 Signed Impressions: Service Date/Time: Friday, September 22, 2017 16:02 - CONCLUSION: Uncomplicated needle biopsy of the L1-2 disc as above. Stanton Beaulieu MD Lumbar Spine X-Ray 09/22/17 1122 Signed Impressions: Service Date/Time: Friday, September 22, 2017 12:14 - CONCLUSION: 1. Findings characteristic of discitis at L1-2. 2. Degenerative changes involving the lumbar spine. Ken Barnes MD Thoracic Spine MRI 09/20/17 0000 Signed Impressions: Service Date/Time: Wednesday, September 20, 2017 22:06 - CONCLUSION: Severe findings in the lumbar spine. See that report for further details. small disc protrusions at multiple levels in the thoracic spine, none producing significant anatomic compromise. Vishal Osorio MD Lumbar Spine MRI 09/20/17 0000 Signed Impressions: Service Date/Time: Wednesday, September 20, 2017 22:06 - CONCLUSION: Pathologic process centered at the L1-2 disc space level with compromise of the adjacent vertebrae felt most probably related to discitis and osteomyelitis. See above discussion. Vishal Osorio MD Physical Exam HEENT: PERRL; normocephalic; atraumatic; no jaundice. CHEST: CTA CARDIAC: RRR ABDOMEN: Soft, nondistended, nontender; no hepatosplenomegaly; bowel sounds are present in all four quadrants. EXTREMITIES: No clubbing, cyanosis, or edema. SKIN: Normal; no rash; no jaundice. LEGAL DIRECTOR: No focal deficits; alert and oriented times three. (Alla,Isabelle S RAIL PROJECT ENGINEER) Assessment and Plan Plan ASSESSMENT - elevated LFTs - likely r/t HCV, HBV. had complete liver w/u 03/2017 unremarkable other than hepatitis. was on tenofovir and d/c with 10 x 30 day refills but he did not keep taking it d/t finances. mild RUQ on TTP. - osteomyelitis, discitis - neurosurgery following, ID following 09/25/17 pt doing well. eating, ambulating. No GI complaints. LFTs were trending down as of yesterday, will rck. HCV & HBV labs pending. PLAN - ANTONIO - rck LFTs in am - await hbv quant - await hcv quant - await hcv genotype - continue to monitor LFTs pt seen by myself and Dr Shrestha and this note is on his behalf (Isabelle Gold) Physician Comments Seen and examined with SHANELLE, liver quintana in progress. (Wayne Shrestha MD) Isabelle Gold September 25, 2017 13:52 Wayne Shrestha MD September 25, 2017 14:54
--- NOTE | 2017-09-25 15:54 | HHI.PR ---
Subjective Remarks Patient reports persistent back pain. Use back brace to ambulate. Objective Vitals Vital Signs Date Time Temp Pulse Resp B/P (MAP) Pulse Ox O2 Delivery O2 Flow Rate FiO2 09/25/17 12:23 98.4 64 17 131/74 (93) 99 09/25/17 08:07 98.4 65 17 128/74 (92) 98 09/25/17 08:00 Room Air 09/25/17 04:00 98.5 72 20 165/83 (110) 98 09/25/17 00:32 16 09/25/17 00:00 98.2 72 20 147/70 (95) 98 09/24/17 20:09 99.1 73 16 178/79 (112) 100 09/24/17 19:45 Room Air 09/24/17 16:00 98.9 69 20 157/77 (103) 99 I/O 09/24/17 09/24/17 09/24/17 09/25/17 09/25/17 09/25/17 07:00 15:00 23:00 07:00 15:00 23:00 Intake Total 420 ml 350 ml 1200 ml 440 ml Output Total 700 ml 400 ml 900 ml 1200 ml Balance -280 ml -50 ml 300 ml -760 ml Intake Oral 420 ml 1200 ml 440 ml IV Total 350 ml Output Urine Total 700 ml 400 ml 900 ml 1200 ml # Voids 2 # Bowel Movements 2 2 Result Diagram: 09/25/17 0553 09/24/17 1150 Objective Remarks GENERAL: This is a well-nourished, well-developed patient, in no apparent distress. CARDIOVASCULAR: Regular rate and rhythm without murmurs, gallops, or rubs. RESPIRATORY: Clear to auscultation. Breath sounds equal bilaterally. No wheezes , rales, or rhonchi. GASTROINTESTINAL: Abdomen soft, non-tender, nondistended. Normal active bowel sounds MUSCULOSKELETAL: Extremities without clubbing, cyanosis, or edema. NEURO: Alert & Oriented x4 to person, place, time, situation. Moves all ext x4 A/P Problem List: (1) Osteomyelitis ICD Code: M86.9 - Osteomyelitis, unspecified (2) Weakness ICD Code: R53.1 - Weakness (3) Leukocytosis ICD Code: D72.829 - Elevated white blood cell count, unspecified (4) DM (diabetes mellitus) ICD Code: E11.9 - Type 2 diabetes mellitus without complications Assessment and Plan 67 Y/O male with: Osteomyelitis: h/o L-Spine Epidural Abscess, s/p Lumbar Laminectomy by Dr. Fitzgerald 03/25/17, c/o back pain, seen at [facility] and had "abnormal CT", instructed to come to [place] for evaluation. MRI L-Spine w/ pathologic process centered at L1-L2 disc space with compromise of adjacent vertebra likely due to osteomyelitis/discitis, images reviewed by me. S/p Vanc/Cefepime in ER, will continue w/ IV Abx. -Neurosurgery and ID following. SO far the cultures are negative. Repeat CT guided biopsy per Neurosurgery Weakness: ambulates w/ cane at baseline, reports worsening lower extremity weakness, PT to follow Elevated LFT,with history of hepatitis B HBe positive in March 2017, Hep c pos. Had Partial treatment but didn't continue. - GI following. Further workup for GI DM: Sliding scale w/ Accu-Cheks. - DVT Prophylaxis: SCD/Teds Discharge Planning Workup ongoing. Continue antibiotics. Monique Min MD September 25, 2017 15:54
[2017-09-25] MEDS: TAMSULOSIN HCL 0.4 MG CAP PO SCH (20:33)
[2017-09-26] MEDS: HYDROmorphone HCL 4 MG TAB PO PRN ×6 (02:40→22:35)
[2017-09-26 04:40] VITALS: BP 144/71; PULSE 69; RESP 16; TEMP 98.8; O2SAT 98
[2017-09-26] MEDS: GABAPENTIN 300 MG CAP PO SCH ×3 (05:36→21:09)
[2017-09-26] MEDS: MORPHINE SULFATE 15 MG CONTROLLED RELEASE TAB PO SCH ×3 (06:54→21:09)
[2017-09-26 07:36] LABS: ALBUMIN 2.3 GM/DL (3.4-5.0)
[2017-09-26 07:38] LABS: DIRECT BILIRUBIN ADULT 0.1 MG/DL (0.0-0.2); INDIRECT BILIRUBIN 0.2 MG/DL (0.0-0.8); TOTAL BILIRUBIN ADULT 0.3 MG/DL (0.2-1.0); TOTAL PROTEIN 6.6 GM/DL (6.4-8.2)
[2017-09-26] MEDS: INSULIN ASPART SUPPLEMENTAL SCALE SQ SCH ×4 (08:00→21:10)
[2017-09-26 08:07] VITALS: BP 144/79; PULSE 69; RESP 17; TEMP 98.1; O2SAT 100
[2017-09-26] MEDS: SODIUM CHLORIDE 0.9% FLUSH 10 ML FLUSH IV FLUSH SCH ×2 (09:00→21:00)
[2017-09-26] MEDS: INSULIN DETEMIR 100 UNITS/ML VIAL SQ SCH ×2 (09:00→21:10)
[2017-09-26] MEDS: DOCUSATE SODIUM 50 MG/SENNA 8.6 MG TAB PO SCH ×2 (09:00→21:00)
[2017-09-26] MEDS: BUDESONIDE-FORMOTEROL 160/4.5 MCG INHALER INH SCH ×2 (09:11→21:00)
[2017-09-26] MEDS: ASPIRIN EC 81 MG TABEC PO SCH (09:12)
[2017-09-26] MEDS: BACLOFEN 10 MG TAB PO SCH ×2 (09:13→21:09)
[2017-09-26] MEDS: DULoxetine HCl DR 20 MG CAP PO SCH (09:13)
[2017-09-26] MEDS: TENOFOVIR DISOPROXIL FUMARATE 300 MG TAB PO SCH (09:14)
[2017-09-26] MEDS: METOPROLOL TARTRATE 100 MG TAB PO SCH (09:14)
[2017-09-26] MEDS: SODIUM CHLOR 0.9% 1000 ML INJ 1,000 ML IV SCH ×2 (09:15→18:36)
[2017-09-26] MEDS: VANCOMYCIN INJ 1,000 MG in SODIUM CHLOR 0.9% 250 ML INJ 250 ML IV SCH ×2 (10:06→21:09)
--- NOTE | 2017-09-26 10:37 | RADRPT ---
EXAM DATE/TIME: 09/26/2017 00:00 [place] COMPARISON: No previous studies available for comparison. INDICATIONS : Evaluate for vertebral biopsy. CONSULTATION: I have asked to rebiopsy the L1, L2 level for infection. Repeated interventions at this level have a lways shown no growth. Recommendation is to perform the combination of bone and gallium scan. If the gallium scan shows the focal hot spot this can then be accessed percutaneously. Case has been discussed at length with Dr. Hector Way MD FACR on September 26, 2017 at 10:34 Board Certified Radiologist. This report was verified electronically.
[2017-09-26] MEDS: cefTRIAXone INJ 1,000 MG in SODIUM CHLORIDE 0.9% INJ 100 ML IV SCH (11:48)
[2017-09-26 12:07] VITALS: BP 140/72; PULSE 59; RESP 17; TEMP 98.4; O2SAT 99
--- NOTE | 2017-09-26 12:45 | HHI.GIFU ---
Subjective Remarks Patient denies any nausea or vomiting, but does note occasional dysphasia midesophagus, but when he drinks water, any pressure or pain resolves resolves BM today this a.m. brown formed no obvious bleeding Denies any diarrhea or constipation Sitting up in the bed, afebrile (Eboni Patricia) Objective Vitals I&O Vital Signs Date Time Temp Pulse Resp B/P (MAP) Pulse Ox O2 Delivery O2 Flow Rate FiO2 09/26/17 12:07 98.4 59 17 140/72 (94) 99 09/26/17 08:07 98.1 69 17 144/79 (100) 100 09/26/17 07:54 Room Air 09/26/17 06:36 16 09/26/17 04:40 98.8 69 16 144/71 (95) 98 09/26/17 00:39 16 09/25/17 23:07 98.8 70 16 133/70 (91) 98 09/25/17 20:21 98.6 69 16 158/80 (106) 98 09/25/17 19:15 Room Air 09/25/17 16:07 98.6 16 143/74 (97) 97 I/O 09/25/17 09/25/17 09/25/17 09/26/17 09/26/17 09/26/17 07:00 15:00 23:00 07:00 15:00 23:00 Intake Total 440 ml 350 ml 960 ml 360 ml Output Total 1200 ml 700 ml 800 ml Balance -760 ml 350 ml 260 ml -440 ml Intake Oral 440 ml 960 ml 360 ml IV Total 350 ml Output Urine Total 1200 ml 700 ml 800 ml # Voids 2 # Bowel Movements 2 0 Laboratory Laboratory Tests Test 09/26/17 05:58 Total Bilirubin 0.3 Direct Bilirubin 0.1 Indirect Bilirubin 0.2 Aspartate Amino Transf (AST/SGOT) 104 Alanine Aminotransferase (ALT/SGPT) 155 Alkaline Phosphatase 168 Total Protein 6.6 Albumin 2.3 Date/Time Source Procedure Growth Status 09/22/17 16:48 Blood Other Aerobic Blood Culture - Preliminary NO GROWTH IN 4 DAYS Resulted 09/22/17 16:48 Blood Other Anaerobic Blood Culture - Preliminary NO GROWTH IN 4 DAYS Resulted 09/22/17 16:00 Wound Back Acid Fast Stain - Final NO ACID FAST BACILLI SEEN Resulted 09/22/17 16:00 Wound Back Mycobacterial Culture Pending Resulted Imaging Last Impressions Liver Ultrasound 09/23/17 0000 Signed Impressions: Service Date/Time: Saturday, September 23, 2017 16:20 - CONCLUSION: 1. There is enlarged liver and spleen with liver measuring up to 20 cm in length and spleen up to 17.9 cm in length. 2. Previous cholecystectomy without biliary ductal dilatation. No free fluid. Theodore Mckay MD Needle Biopsy/Aspiration X-Ray 09/22/17 1445 Signed Impressions: Service Date/Time: Friday, September 22, 2017 16:02 - CONCLUSION: Uncomplicated needle biopsy of the L1-2 disc as above. Stanton Beaulieu MD Lumbar Spine X-Ray 09/22/17 1122 Signed Impressions: Service Date/Time: Friday, September 22, 2017 12:14 - CONCLUSION: 1. Findings characteristic of discitis at L1-2. 2. Degenerative changes involving the lumbar spine. Ken Barnes MD Thoracic Spine MRI 09/20/17 0000 Signed Impressions: Service Date/Time: Wednesday, September 20, 2017 22:06 - CONCLUSION: Severe findings in the lumbar spine. See that report for further details. small disc protrusions at multiple levels in the thoracic spine, none producing significant anatomic compromise. Vishal Osorio MD Lumbar Spine MRI 09/20/17 0000 Signed Impressions: Service Date/Time: Wednesday, September 20, 2017 22:06 - CONCLUSION: Pathologic process centered at the L1-2 disc space level with compromise of the adjacent vertebrae felt most probably related to discitis and osteomyelitis. See above discussion. Vishal Osorio MD Physical Exam HEENT: PERRL; normocephalic; atraumatic; no jaundice. Speech clear CHEST: No obvious rhonchi or wheezing lungs are essentially clear, neck is supple CARDIAC: Regular rate and rhythm, no obvious murmur ABDOMEN: Soft, nondistended, no tenderness to light palpation, bowel sounds are present in all four quadrants. EXTREMITIES: No clubbing, cyanosis, or edema. SKIN: Normal; no rash; no jaundice. SIDE LASTER STAPLE: No focal deficits; alert and oriented times three. (Eboni Patricia) Assessment and Plan Plan ASSESSMENT - elevated LFTs - likely r/t HCV, HBV. had complete liver w/u 03/2017 unremarkable other than hepatitis. was on tenofovir and d/c with 10 x 30 day refills but he did not keep taking it d/t finances. mild RUQ on TTP. - osteomyelitis, discitis - neurosurgery following, ID following 09/25/17 pt doing well. eating, ambulating. No GI complaints. LFTs were trending down as of yesterday, will rck. HCV & HBV labs pending. 09/26/2017 patient states normal brown bowel movement this morning no obvious bleeding. Current labs show hemoglobin 10.5, normal WBC count 5.8, INR 1.1, LFTs continue to decline with AST 104, and ALT 155,. Patient is tolerating regular diet without nausea or vomiting. Patient states he is followed by GI doctor Lukas Salcedo and has had previous colonoscopies. Also states history of ERCP. patient does note some dysphasia with some mild hoarseness. Currently not on PPI but will add. States this has been a problem for approximately 1 year unchanged. Liver workup still in process, reactive hepatitis C IgG antibody as well as reactive hepatitis B antigen and core IgM antibody. September 23, 2017 shows enlarged liver and spleen previous cholecystectomy without bilateral ductal dilatation. Minimal right upper quadrant tenderness with light palpation, improved Rest of liver workup is pending. Patient also on multiple antibiotics for discitis and osteomyelitis. PLAN -Regular diet -Consider EGD hospital versus outpatient. If still in the hospital could possibly do Friday. - continue to monitor LFTs and labs including hemoglobin -Antiemetics -Bowel regimen as needed -PPI twice daily pt seen by myself and Dr Shrestha and this note is on his behalf (Eboni Patricia) Physician Comments Seen and examined with SHANELLE, liver quintana in progress. ? egd on friday. (Wayne Shrestha MD) Eboni Patricia September 26, 2017 12:45 Wayen Shrestha MD September 26, 2017 15:51
[2017-09-26] MEDS: PANTOPRAZOLE SOD 40 MG DELAYED RELEASE TAB PO SCH ×2 (13:16→21:09)
--- NOTE | 2017-09-26 14:11 | HHI.PR ---
Subjective Remarks Patient reports is doing okay except for same persistent back pain. No fevers or chills. Objective Vitals Vital Signs Date Time Temp Pulse Resp B/P (MAP) Pulse Ox O2 Delivery O2 Flow Rate FiO2 09/26/17 12:07 98.4 59 17 140/72 (94) 99 09/26/17 08:07 98.1 69 17 144/79 (100) 100 09/26/17 07:54 Room Air 09/26/17 06:36 16 09/26/17 04:40 98.8 69 16 144/71 (95) 98 09/26/17 00:39 16 09/25/17 23:07 98.8 70 16 133/70 (91) 98 09/25/17 20:21 98.6 69 16 158/80 (106) 98 09/25/17 19:15 Room Air 09/25/17 16:07 98.6 16 143/74 (97) 97 I/O 09/25/17 09/25/17 09/25/17 09/26/17 09/26/17 09/26/17 07:00 15:00 23:00 07:00 15:00 23:00 Intake Total 440 ml 350 ml 960 ml 360 ml Output Total 1200 ml 700 ml 800 ml Balance -760 ml 350 ml 260 ml -440 ml Intake Oral 440 ml 960 ml 360 ml IV Total 350 ml Output Urine Total 1200 ml 700 ml 800 ml # Voids 2 # Bowel Movements 2 0 Result Diagram: 09/25/17 0553 09/24/17 1150 Objective Remarks GENERAL: This is a well-nourished, well-developed patient, in no apparent distress. CARDIOVASCULAR: Regular rate and rhythm without murmurs, gallops, or rubs. RESPIRATORY: Clear to auscultation. Breath sounds equal bilaterally. No wheezes , rales, or rhonchi. GASTROINTESTINAL: Abdomen soft, non-tender, nondistended. Normal active bowel sounds MUSCULOSKELETAL: Extremities without clubbing, cyanosis, or edema. Complaint of tenderness to palpation of the lumbar area. NEURO: Alert & Oriented x4 to person, place, time, situation. Moves all ext x4 A/P Problem List: (1) Osteomyelitis ICD Code: M86.9 - Osteomyelitis, unspecified (2) Weakness ICD Code: R53.1 - Weakness (3) Leukocytosis ICD Code: D72.829 - Elevated white blood cell count, unspecified (4) DM (diabetes mellitus) ICD Code: E11.9 - Type 2 diabetes mellitus without complications Assessment and Plan 67 Y/O male with: Osteomyelitis: h/o L-Spine Epidural Abscess, s/p Lumbar Laminectomy by Dr. Fitzgerald 03/25/17, c/o back pain, seen at [facility] and had "abnormal CT", instructed to come to [place] for evaluation. MRI L-Spine w/ pathologic process centered at L1-L2 disc space with compromise of adjacent vertebra likely due to osteomyelitis/discitis. S/p Vanc/Cefepime in ER, will continue w / IV Abx. -Neurosurgery and ID following. So far the cultures are negative. -Interventional radiology evaluated and recommended a bone and gallium scan first to better assess the area since prior biopsies have been negative. Weakness: ambulates w/ cane at baseline, reports worsening lower extremity weakness, PT to follow Elevated LFT,with history of hepatitis B HBe positive in March 2017, Hep c pos. Had Partial treatment but didn't continue. - GI following. Further workup for GI DM: Sliding scale w/ Accu-Cheks. - DVT Prophylaxis: SCD/Teds Discharge Planning Workup ongoing. Continue antibiotics. Monique Min MD September 26, 2017 14:11
[2017-09-26] MEDS: MORPHINE SULFATE 4 MG/ML INJ IV PUSH PRN (16:06)
[2017-09-26 16:07] VITALS: BP 149/84; PULSE 66; RESP 18; TEMP 98.5; O2SAT 100
--- NOTE | 2017-09-26 18:10 | HHI.IDPN ---
Note Infectious Disease Note Patient says the pain in the back is the same. Continues to have back spasms. He notes that the pain radiates down his thighs. Afebrile. Denies chills. This biopsy culture negative. 67-year-old white male who has been treated for osteomyelitis and lumbar epidural abscess due to MSSA in late 2016. The patient completed antibiotics towards the end of 04/2017. He was discharged from rehab facility to home. He was doing well at home. He presented to the emergency department on 09/20 because of back pain. He developed increasing weakness in his lower extremities and notes that he was having severe pain when he would stand upright. He was seen at [facility] and a CT scan was performed and he was subsequently transferred to [place] because of an abnormality noted on the CT scan. MRI of the thoracic spine shows a pathologic process centered at L1-L2 disk space level with compromise of the adjacent vertebrae, most probably related to diskitis and osteomyelitis. PAST MEDICAL HISTORY: Hypertension, diabetes mellitus, COPD, hepatitis C, cirrhosis of the liver, esophageal varices, history of bowel resection for ischemic colitis, history of lumbar spine laminectomy in 2017, appendectomy, cholecystectomy, left hand surgery, tympanostomy. ALLERGIES: PENTAZOCINE, CODEINE, BUTORPHANOL, IODINE CONTRAST. MEDICATIONS: Current Medications Medications (Trade) Dose Ordered Sig/Jaya Route PRN Reason Start Time Stop Time Status Last Admin Dose Admin Dextrose (D50w (Vial) Inj) 50 ml UNSCH PRN IV PUSH HYPOGLYCEMIA-SEE COMMENTS 09/21/17 00:00 Glucagon (Glucagon Inj) 1 mg UNSCH PRN OTHER HYPOGLYCEMIA-SEE COMMENTS 09/21/17 00:00 Insulin Aspart (NovoLOG SUPPLEMENTAL SCALE) 1 ACHS SLIDING SCALE SQ 09/21/17 08:00 09/25/17 20:35 Sodium Chloride 1,000 ml @ 100 mls/hr Q10H IV 09/20/17 23:52 09/25/17 23:40 Sodium Chloride (NS Flush) 2 ml UNSCH PRN IV FLUSH FLUSH AFTER USING IV ACCESS 09/21/17 00:00 Sodium Chloride (NS Flush) 2 ml BID IV FLUSH 09/21/17 09:00 09/25/17 20:36 Ondansetron HCl (Zofran Inj) 4 mg Q6H PRN IVP NAUSEA OR VOMITING 09/21/17 00:00 Acetaminophen (Tylenol) 650 mg Q6H PRN PO FEVER/PAIN SCALE 1 TO 2 09/21/17 00:00 Senna/Docusate Sodium (Shaila-Colace) 1 tab BID PO 09/21/17 09:00 09/24/17 08:13 Magnesium Hydroxide (Milk Of Magnesia Liq) 30 ml Q12H PRN PO Mild constipation 09/21/17 00:00 Sennosides (Senokot) 17.2 mg Q12H PRN PO Moderate constipation 09/21/17 00:00 Bisacodyl (Dulcolax Supp) 10 mg DAILY PRN RECTAL SEVERE CONSITIPATION 09/21/17 00:00 Lactulose (Lactulose Liq) 30 ml DAILY PRN PO SEVERE CONSITIPATION 09/21/17 00:00 Aspirin (Ecotrin Ec) 81 mg DAILY PO 09/21/17 09:00 09/26/17 09:12 Baclofen (Lioresal) 10 mg Q12HR PO 09/21/17 09:00 09/26/17 09:13 Budesonide/ Formoterol Fumarate (Symbicort 160-4.5 Mcg Inh) 1 puff Q12HR INH 09/21/17 09:00 09/26/17 09:11 Insulin Detemir (Levemir Inj) 8 units BID SQ 09/21/17 09:00 09/25/17 20:34 Metoprolol Tartrate (Lopressor) 100 mg DAILY PO 09/21/17 09:00 09/26/17 09:14 Tamsulosin HCl (Flomax) 0.4 mg HS PO 09/21/17 21:00 09/25/17 20:33 Tenofovir Disoproxil Fumarate (Viread) 300 mg DAILY PO 09/21/17 09:00 09/26/17 09:14 Hydromorphone HCl (Dilaudid) 4 mg Q4H PRN PO PAIN 3-5 09/21/17 00:15 09/26/17 14:19 Morphine Sulfate (Oramorph Sr) 15 mg Q8HR PO 09/21/17 06:00 09/26/17 13:16 Duloxetine HCl (Cymbalta Dr) 20 mg DAILY PO 09/21/17 09:00 09/26/17 09:13 Gabapentin (Neurontin) 600 mg Q8HR PO 09/22/17 14:00 09/26/17 13:17 Ceftriaxone Sodium 1000 mg/ Sodium Chloride 100 ml @ 200 mls/hr Q12H IV 09/22/17 11:00 09/26/17 11:48 Vancomycin HCl 1000 mg/Sodium Chloride 250 ml @ 250 mls/hr Q12H IV 09/22/17 10:00 09/26/17 10:06 Morphine Sulfate (Morphine Inj) 4 mg Q3H PRN IV PUSH Pain 6-10 09/22/17 10:15 09/26/17 16:06 Pantoprazole Sodium (Protonix) 40 mg Q12HR PO 09/26/17 12:45 09/26/17 13:16 Objective: Vital Signs Date Time Temp Pulse Resp B/P (MAP) Pulse Ox O2 Delivery O2 Flow Rate FiO2 09/26/17 16:07 98.5 66 18 149/84 (105) 100 09/26/17 12:07 98.4 59 17 140/72 (94) 99 09/26/17 08:07 98.1 69 17 144/79 (100) 100 09/26/17 07:54 Room Air 09/26/17 06:36 16 09/26/17 04:40 98.8 69 16 144/71 (95) 98 09/26/17 00:39 16 09/25/17 23:07 98.8 70 16 133/70 (91) 98 09/25/17 20:21 98.6 69 16 158/80 (106) 98 09/25/17 19:15 Room Air Laboratory Tests Test 09/25/17 05:53 White Blood Count 5.8 TH/MM3 Red Blood Count 3.68 MIL/MM3 Hemoglobin 10.5 GM/DL Hematocrit 30.5 % Mean Corpuscular Volume 82.7 FL Mean Corpuscular Hemoglobin 28.6 PG Mean Corpuscular Hemoglobin Concent 34.6 % Red Cell Distribution Width 15.4 % Platelet Count 118 TH/MM3 Mean Platelet Volume 8.3 FL Neutrophils (%) (Auto) 64.4 % Lymphocytes (%) (Auto) 22.6 % Monocytes (%) (Auto) 9.1 % Eosinophils (%) (Auto) 3.2 % Basophils (%) (Auto) 0.7 % Neutrophils # (Auto) 3.7 TH/MM3 Lymphocytes # (Auto) 1.3 TH/MM3 Monocytes # (Auto) 0.5 TH/MM3 Eosinophils # (Auto) 0.2 TH/MM3 Basophils # (Auto) 0.0 TH/MM3 CBC Comment DIFF FINAL Differential Comment Laboratory Tests Test 09/26/17 05:58 Total Bilirubin 0.3 MG/DL Direct Bilirubin 0.1 MG/DL Indirect Bilirubin 0.2 MG/DL Aspartate Amino Transf (AST/SGOT) 104 U/L Alanine Aminotransferase (ALT/SGPT) 155 U/L Alkaline Phosphatase 168 U/L Total Protein 6.6 GM/DL Albumin 2.3 GM/DL Microbiology Date/Time Source Procedure Growth Status 09/22/17 16:48 Blood Other Aerobic Blood Culture - Preliminary NO GROWTH IN 2 DAYS Resulted 09/22/17 16:48 Blood Other Anaerobic Blood Culture - Preliminary NO GROWTH IN 2 DAYS Resulted 09/22/17 14:02 Blood Other Aerobic Blood Culture - Preliminary NO GROWTH IN 2 DAYS Resulted 09/22/17 14:02 Blood Other Anaerobic Blood Culture - Preliminary NO GROWTH IN 2 DAYS Resulted 09/22/17 14:02 Blood Other Blood Fungal Culture Pending Resulted 09/22/17 14:02 Blood Other Blood Fungal Culture Pending Resulted 09/22/17 16:00 Wound Back Acid Fast Stain - Final NO ACID FAST BACILLI SEEN Resulted 09/22/17 16:00 Wound Back Mycobacterial Culture Pending Resulted 09/22/17 16:00 Wound Back Gram Stain - Final Resulted 09/22/17 16:00 Wound Back Wound Culture - Preliminary NO GROWTH IN 48 HOURS. Resulted Microbiology Date/Time Source Procedure Growth Status 09/22/17 16:48 Blood Other Aerobic Blood Culture - Preliminary NO GROWTH IN 1 DAY Resulted 09/22/17 16:48 Blood Other Anaerobic Blood Culture - Preliminary NO GROWTH IN 1 DAY Resulted 09/22/17 14:02 Blood Other Aerobic Blood Culture - Preliminary NO GROWTH IN 1 DAY Resulted 09/22/17 14:02 Blood Other Anaerobic Blood Culture - Preliminary NO GROWTH IN 1 DAY Resulted 09/22/17 14:02 Blood Other Blood Fungal Culture Pending Resulted 09/22/17 14:02 Blood Other Blood Fungal Culture Pending Resulted 09/22/17 16:00 Wound Back Acid Fast Stain Pending Received 09/22/17 16:00 Wound Back Mycobacterial Culture Pending Received 09/22/17 16:00 Wound Back Gram Stain - Final Resulted 09/22/17 16:00 Wound Back Wound Culture Pending Resulted Imaging: Liver Ultrasound 09/23/17 0000 Signed Impressions: Service Date/Time: Saturday, September 23, 2017 16:20 - CONCLUSION: 1. There is enlarged liver and spleen with liver measuring up to 20 cm in length and spleen up to 17.9 cm in length. 2. Previous cholecystectomy without biliary ductal dilatation. No free fluid. Theodore Mckay MD Needle Biopsy/Aspiration X-Ray 09/22/17 1445 Signed Impressions: Service Date/Time: Friday, September 22, 2017 16:02 - CONCLUSION: Uncomplicated needle biopsy of the L1-2 disc as above. Stanton Beaulieu MD Lumbar Spine X-Ray 09/22/17 1122 Signed Impressions: Service Date/Time: Friday, September 22, 2017 12:14 - CONCLUSION: 1. Findings characteristic of discitis at L1-2. 2. Degenerative changes involving the lumbar spine. Ken Barnes MD Thoracic Spine MRI 09/20/17 0000 Signed Impressions: Service Date/Time: Wednesday, September 20, 2017 22:06 - CONCLUSION: Severe findings in the lumbar spine. See that report for further details. small disc protrusions at multiple levels in the thoracic spine, none producing significant anatomic compromise. Vishal Osorio MD Lumbar Spine MRI 09/20/17 0000 Signed Impressions: Service Date/Time: Wednesday, September 20, 2017 22:06 - CONCLUSION: Pathologic process centered at the L1-2 disc space level with compromise of the adjacent vertebrae felt most probably related to discitis and osteomyelitis. See above discussion. Vishal Osorio MD PHYSICAL EXAMINATION: GENERAL: No acute distress. Awake and alert. HEENT: Extraocular movements grossly intact. Pupils reactive to light. No icterus. Oropharynx: Moist mucosa. No lesions. NECK: Supple without adenopathy or swelling. LUNGS: Clear breath sounds. HEART: Regular S1 and S2, without murmurs, rubs or gallops. BACK: Tenderness on palpation over the lumbar spine. ABDOMEN: Bowel sounds present, soft, nontender. EXTREMITIES: No clubbing, cyanosis or edema. SKIN: No rash. NEUROLOGIC: No gross focal finding. PSYCHIATRIC: Pleasant, calm and cooperative. IMPRESSION: 1. Lumbar spine osteomyelitis and diskitis. Based on MRI findings. However the culture of disc aspirate is negative. 2. History of lumbar spine epidural abscess due to MSSA treated a few months ago. 3. Elevated liver function tests. Questionable etiology. History of hepatitis C and B. I discussed the case with the neurosurgeon. He recommends that the patient have a biopsy of the disc for repeat culture. However after discussion with the radiologist, a bone gallium scan will be performed and based on the results a decision will be made whether or not to do the disc biopsy. The patient probably does not have recurrence of infection. The gallium scan may help to determine treatment decision. RECOMMENDATIONS: 1. Continue vancomycin. 2. Stop ceftriaxone. 3. Monitor gallium scan results. Florentino Burnette MD September 26, 2017 18:10
[2017-09-26] MEDS: TAMSULOSIN HCL 0.4 MG CAP PO SCH (21:09)
[2017-09-26 23:18] VITALS: BP 130/68; PULSE 71; RESP 16; TEMP 98.8; O2SAT 99
[2017-09-27] MEDS: HYDROmorphone HCL 4 MG TAB PO PRN ×5 (04:03→21:42)
[2017-09-27 04:40] VITALS: BP 155/76; PULSE 71; RESP 16; TEMP 98.9; O2SAT 96
[2017-09-27] MEDS: SODIUM CHLOR 0.9% 1000 ML INJ 1,000 ML IV SCH (06:48)
[2017-09-27] MEDS: MORPHINE SULFATE 15 MG CONTROLLED RELEASE TAB PO SCH ×3 (06:48→22:53)
[2017-09-27] MEDS: GABAPENTIN 300 MG CAP PO SCH ×3 (06:48→21:41)
[2017-09-27] MEDS: INSULIN ASPART SUPPLEMENTAL SCALE SQ SCH ×4 (08:00→21:43)
[2017-09-27 08:07] VITALS: BP 171/87; PULSE 69; RESP 16; TEMP 98.3; O2SAT 99
[2017-09-27] MEDS: METOPROLOL TARTRATE 100 MG TAB PO SCH (08:20)
[2017-09-27] MEDS: ASPIRIN EC 81 MG TABEC PO SCH (08:20)
[2017-09-27] MEDS: DOCUSATE SODIUM 50 MG/SENNA 8.6 MG TAB PO SCH ×2 (08:20→21:00)
[2017-09-27] MEDS: PANTOPRAZOLE SOD 40 MG DELAYED RELEASE TAB PO SCH ×2 (08:20→21:41)
[2017-09-27] MEDS: SODIUM CHLORIDE 0.9% FLUSH 10 ML FLUSH IV FLUSH SCH ×2 (08:21→21:00)
[2017-09-27] MEDS: BACLOFEN 10 MG TAB PO SCH ×2 (08:21→21:41)
[2017-09-27] MEDS: TENOFOVIR DISOPROXIL FUMARATE 300 MG TAB PO SCH (08:21)
[2017-09-27] MEDS: DULoxetine HCl DR 20 MG CAP PO SCH (08:21)
[2017-09-27] MEDS: BUDESONIDE-FORMOTEROL 160/4.5 MCG INHALER INH SCH ×2 (08:22→21:44)
[2017-09-27] MEDS: INSULIN DETEMIR 100 UNITS/ML VIAL SQ SCH ×2 (08:24→21:44)
[2017-09-27] MEDS: MORPHINE SULFATE 4 MG/ML INJ IV PUSH PRN ×4 (10:51→23:29)
[2017-09-27] MEDS: VANCOMYCIN INJ 1,000 MG in SODIUM CHLOR 0.9% 250 ML INJ 250 ML IV SCH ×2 (11:21→21:43)
[2017-09-27 12:07] VITALS: BP 167/91; PULSE 68; RESP 16; TEMP 98.1; O2SAT 100
--- NOTE | 2017-09-27 13:35 | HHI.PR ---
Subjective Remarks Patient reports he is feeling okay. No significant change in back pain. No fevers or chills. Objective Vitals Vital Signs Date Time Temp Pulse Resp B/P (MAP) Pulse Ox O2 Delivery O2 Flow Rate FiO2 09/27/17 08:07 98.3 69 16 171/87 (115) 99 09/27/17 04:40 98.9 71 16 155/76 (102) 96 09/26/17 23:35 16 09/26/17 23:18 98.8 71 16 130/68 (88) 99 09/26/17 20:30 Room Air 09/26/17 16:07 98.5 66 18 149/84 (105) 100 I/O 09/26/17 09/26/17 09/26/17 09/27/17 09/27/17 09/27/17 07:00 15:00 23:00 07:00 15:00 23:00 Intake Total 360 ml 350 ml 480 ml 840 ml Output Total 800 ml 300 ml 1300 ml Balance -440 ml 350 ml 180 ml -460 ml Intake Oral 360 ml 480 ml 840 ml IV Total 350 ml Output Urine Total 800 ml 300 ml 1300 ml # Voids 3 # Bowel Movements 0 0 0 Result Diagram: 09/25/17 0553 09/24/17 1150 Objective Remarks GENERAL: This is a well-nourished, well-developed patient, in no apparent distress. CARDIOVASCULAR: Regular rate and rhythm without murmurs, gallops, or rubs. RESPIRATORY: Clear to auscultation. Breath sounds equal bilaterally. No wheezes , rales, or rhonchi. GASTROINTESTINAL: Abdomen soft, non-tender, nondistended. Normal active bowel sounds MUSCULOSKELETAL: Extremities without clubbing, cyanosis, or edema. Complaint of tenderness to palpation of the lumbar area. NEURO: Alert & Oriented x4 to person, place, time, situation. Moves all ext x4 A/P Problem List: (1) Osteomyelitis ICD Code: M86.9 - Osteomyelitis, unspecified (2) Weakness ICD Code: R53.1 - Weakness (3) Leukocytosis ICD Code: D72.829 - Elevated white blood cell count, unspecified (4) DM (diabetes mellitus) ICD Code: E11.9 - Type 2 diabetes mellitus without complications Assessment and Plan 67 Y/O male with: Osteomyelitis: h/o L-Spine Epidural Abscess, s/p Lumbar Laminectomy by Dr. Fitzgerald 03/25/17, c/o back pain, seen at [facility] and had "abnormal CT", instructed to come to [place] for evaluation. MRI L-Spine w/ pathologic process centered at L1-L2 disc space with compromise of adjacent vertebra likely due to osteomyelitis/discitis.. -Neurosurgery and ID following. So far the cultures are negative. -Interventional radiology evaluated and recommended a bone and gallium scan first to better assess the area since prior biopsies have been negative. Further plans will be based on the scan. On vancomycin per ID Weakness: ambulates w/ cane at baseline, reports worsening lower extremity weakness, PT to follow Elevated LFT,with history of hepatitis B HBe positive in March 2017, Hep c pos. Had Partial treatment but didn't continue. - GI following. Further workup per GI DM: Sliding scale w/ Accu-Cheks. - DVT Prophylaxis: SCD/Teds Discharge Planning Workup ongoing. Continue antibiotics. Monique Min MD September 27, 2017 13:35
[2017-09-27 16:07] VITALS: BP 168/88; PULSE 64; RESP 16; TEMP 98; O2SAT 100
--- NOTE | 2017-09-27 16:46 | HHI.GIFU ---
Subjective Remarks Recent is likely dozing resting in the bed No acute nausea or vomiting or abdominal pain Hemoglobin 10.5 afebrile (Eboni Patricia) Objective Vitals I&O Vital Signs Date Time Temp Pulse Resp B/P (MAP) Pulse Ox O2 Delivery O2 Flow Rate FiO2 09/27/17 12:07 98.1 68 16 167/91 (116) 100 09/27/17 08:07 98.3 69 16 171/87 (115) 99 09/27/17 04:40 98.9 71 16 155/76 (102) 96 09/26/17 23:35 16 09/26/17 23:18 98.8 71 16 130/68 (88) 99 09/26/17 20:30 Room Air I/O 09/26/17 09/26/17 09/26/17 09/27/17 09/27/17 09/27/17 07:00 15:00 23:00 07:00 15:00 23:00 Intake Total 360 ml 350 ml 480 ml 840 ml Output Total 800 ml 300 ml 1300 ml Balance -440 ml 350 ml 180 ml -460 ml Intake Oral 360 ml 480 ml 840 ml IV Total 350 ml Output Urine Total 800 ml 300 ml 1300 ml # Voids 3 # Bowel Movements 0 0 0 Laboratory Date/Time Source Procedure Growth Status 09/22/17 16:48 Blood Other Aerobic Blood Culture - Final NO GROWTH IN 5 DAYS Complete 09/22/17 16:48 Blood Other Anaerobic Blood Culture - Final NO GROWTH IN 5 DAYS Complete 09/22/17 16:00 Wound Back Acid Fast Stain - Final NO ACID FAST BACILLI SEEN Resulted 09/22/17 16:00 Wound Back Mycobacterial Culture Pending Resulted Imaging Last Impressions Liver Ultrasound 09/23/17 0000 Signed Impressions: Service Date/Time: Saturday, September 23, 2017 16:20 - CONCLUSION: 1. There is enlarged liver and spleen with liver measuring up to 20 cm in length and spleen up to 17.9 cm in length. 2. Previous cholecystectomy without biliary ductal dilatation. No free fluid. Theodore Mckay MD Needle Biopsy/Aspiration X-Ray 09/22/17 1445 Signed Impressions: Service Date/Time: Friday, September 22, 2017 16:02 - CONCLUSION: Uncomplicated needle biopsy of the L1-2 disc as above. Stanton Beaulieu MD Lumbar Spine X-Ray 09/22/17 1122 Signed Impressions: Service Date/Time: Friday, September 22, 2017 12:14 - CONCLUSION: 1. Findings characteristic of discitis at L1-2. 2. Degenerative changes involving the lumbar spine. Ken Barnes MD Thoracic Spine MRI 09/20/17 0000 Signed Impressions: Service Date/Time: Wednesday, September 20, 2017 22:06 - CONCLUSION: Severe findings in the lumbar spine. See that report for further details. small disc protrusions at multiple levels in the thoracic spine, none producing significant anatomic compromise. Vishal Osorio MD Lumbar Spine MRI 09/20/17 0000 Signed Impressions: Service Date/Time: Wednesday, September 20, 2017 22:06 - CONCLUSION: Pathologic process centered at the L1-2 disc space level with compromise of the adjacent vertebrae felt most probably related to discitis and osteomyelitis. See above discussion. Vishal Osorio MD Physical Exam HEENT; normocephalic; atraumatic; Speech understandable Neck; supple CHEST: Lungs are essentially clear no shortness of breath CARDIAC: Regular rate and rhythm, ABDOMEN: Round, soft, nondistended, no tenderness to light palpation, bowel sounds are present in all four quadrants. EXTREMITIES: No edema. SKIN: Normal; no rash; no jaundice. PRICING ANALYST: No focal deficits; alert and oriented times three. (Eboni Patricia) Assessment and Plan Plan ASSESSMENT - elevated LFTs - likely r/t HCV, HBV. had complete liver w/u 03/2017 unremarkable other than hepatitis. was on tenofovir and d/c with 10 x 30 day refills but he did not keep taking it d/t finances. mild RUQ on TTP. - osteomyelitis, discitis - neurosurgery following, ID following 09/25/17 pt doing well. eating, ambulating. No GI complaints. LFTs were trending down as of yesterday, will rck. HCV & HBV labs pending. 09/26/2017 patient states normal brown bowel movement this morning no obvious bleeding. Current labs show hemoglobin 10.5, normal WBC count 5.8, INR 1.1, LFTs continue to decline with AST 104, and ALT 155,. Patient is tolerating regular diet without nausea or vomiting. Patient states he is followed by GI doctor Lukas Salcedo and has had previous colonoscopies. Also states history of ERCP. patient does note some dysphasia with some mild hoarseness. Currently not on PPI but will add. States this has been a problem for approximately 1 year unchanged. Liver workup still in process, reactive hepatitis C IgG antibody as well as reactive hepatitis B antigen and core IgM antibody. September 23, 2017 shows enlarged liver and spleen previous cholecystectomy without bilateral ductal dilatation. Minimal right upper quadrant tenderness with light palpation, improved Rest of liver workup is pending. Patient also on multiple antibiotics for discitis and osteomyelitis. 09/27/2017, patient appears tired fatigue, has regular diet appetite fair. Abdomen soft, mild minimal distention. No obvious bleeding plan EGD for Friday PLAN -Diet regular - Consent for EGD on Friday -N.p.o. after midnight Friday night -Done at her labs -Antiemetics -Bowel regimen as needed -PPI Pt seen by myself and Dr Shrestha and this note is on his behalf (Eboni Patricia) Physician Comments Seen and examined with SHANELLE, liver quintana in progress egd friday (Wayne Shrestha MD) Eboni Patricia September 27, 2017 16:46 Wayne Shrestha MD September 28, 2017 13:00
[2017-09-27 20:00] VITALS: BP 162/81; PULSE 63; RESP 18; TEMP 98.5; O2SAT 100
[2017-09-27] MEDS: TAMSULOSIN HCL 0.4 MG CAP PO SCH (21:42)
[2017-09-28] VITALS: BP 156/81; PULSE 65; RESP 17; TEMP 99.2; O2SAT 97
[2017-09-28] MEDS: HYDROmorphone HCL 4 MG TAB PO PRN ×6 (02:58→22:56)
[2017-09-28 04:00] VITALS: BP 162/69; PULSE 63; RESP 18; TEMP 98.4; O2SAT 98
[2017-09-28] MEDS: MORPHINE SULFATE 15 MG CONTROLLED RELEASE TAB PO SCH ×3 (05:24→21:40)
[2017-09-28] MEDS: GABAPENTIN 300 MG CAP PO SCH ×3 (05:25→21:39)
[2017-09-28] MEDS: PANTOPRAZOLE SOD 40 MG DELAYED RELEASE TAB PO SCH ×2 (08:00→21:39)
[2017-09-28] MEDS: ASPIRIN EC 81 MG TABEC PO SCH (08:00)
[2017-09-28] MEDS: BACLOFEN 10 MG TAB PO SCH ×2 (08:00→21:39)
[2017-09-28] MEDS: METOPROLOL TARTRATE 100 MG TAB PO SCH (08:00)
[2017-09-28] MEDS: INSULIN ASPART SUPPLEMENTAL SCALE SQ SCH ×4 (08:00→21:42)
[2017-09-28] MEDS: DULoxetine HCl DR 20 MG CAP PO SCH (08:00)
[2017-09-28] MEDS: TENOFOVIR DISOPROXIL FUMARATE 300 MG TAB PO SCH (08:01)
[2017-09-28 08:07] VITALS: BP 117/72; PULSE 56; RESP 16; TEMP 98.3; O2SAT 100
[2017-09-28] MEDS: DOCUSATE SODIUM 50 MG/SENNA 8.6 MG TAB PO SCH ×2 (09:00→21:00)
[2017-09-28] MEDS: SODIUM CHLORIDE 0.9% FLUSH 10 ML FLUSH IV FLUSH SCH ×2 (09:00→21:00)
--- NOTE | 2017-09-28 11:10 | HHI.PR ---
Subjective Remarks Patient reports he is feeling better. Pain is better controlled. Objective Vitals Vital Signs Date Time Temp Pulse Resp B/P (MAP) Pulse Ox O2 Delivery O2 Flow Rate FiO2 09/28/17 08:07 98.3 56 16 117/72 (87) 100 09/28/17 04:41 18 09/28/17 04:00 98.4 63 18 162/69 (100) 98 09/28/17 00:06 19 09/28/17 00:06 19 09/28/17 00:00 99.2 65 17 156/81 (106) 97 09/27/17 21:45 Room Air 09/27/17 20:00 98.5 63 18 162/81 (108) 100 09/27/17 16:07 98.0 64 16 168/88 (114) 100 09/27/17 12:07 98.1 68 16 167/91 (116) 100 I/O 09/27/17 09/27/17 09/27/17 09/28/17 09/28/17 09/28/17 07:00 15:00 23:00 07:00 15:00 23:00 Intake Total 840 ml 670 ml 240 ml Output Total 1300 ml 1200 ml 950 ml Balance -460 ml -530 ml -710 ml Intake Oral 840 ml 420 ml 240 ml IV Total 250 ml Output Urine Total 1300 ml 1200 ml 950 ml # Voids 1 # Bowel Movements 0 0 1 Result Diagram: 09/25/17 0553 09/24/17 1150 Objective Remarks GENERAL: This is a well-nourished, well-developed patient, in no apparent distress. CARDIOVASCULAR: Regular rate and rhythm without murmurs, gallops, or rubs. RESPIRATORY: Clear to auscultation. Breath sounds equal bilaterally. No wheezes , rales, or rhonchi. GASTROINTESTINAL: Abdomen soft, non-tender, nondistended. Normal active bowel sounds MUSCULOSKELETAL: Extremities without clubbing, cyanosis, or edema. Complaint of tenderness to palpation of the lumbar area. NEURO: Alert & Oriented x4 to person, place, time, situation. Moves all ext x4 A/P Problem List: (1) Osteomyelitis ICD Code: M86.9 - Osteomyelitis, unspecified (2) Weakness ICD Code: R53.1 - Weakness (3) Leukocytosis ICD Code: D72.829 - Elevated white blood cell count, unspecified (4) DM (diabetes mellitus) ICD Code: E11.9 - Type 2 diabetes mellitus without complications Assessment and Plan 67 Y/O male with: Osteomyelitis: h/o L-Spine Epidural Abscess, s/p Lumbar Laminectomy by Dr. Fitzgerald 03/25/17, c/o back pain, seen at [facility] and had "abnormal CT", instructed to come to [place] for evaluation. MRI L-Spine w/ pathologic process centered at L1-L2 disc space with compromise of adjacent vertebra likely due to osteomyelitis/discitis.. -Neurosurgery and ID following. So far the cultures are negative. -Interventional radiology evaluated and recommended a bone and gallium scan first to better assess the area since prior biopsies have been negative. To be done tomorrow. Further plans will be based on the scan. On vancomycin per ID Weakness: ambulates w/ cane at baseline, reports worsening lower extremity weakness, PT to follow Elevated LFT,with history of hepatitis B HBe positive in March 2017, Hep c pos. Had Partial treatment but didn't continue. - GI following. Further workup per GI DM: Sliding scale w/ Accu-Cheks. - DVT Prophylaxis: SCD/Teds Discharge Planning Workup ongoing. Continue antibiotics. Monique iMn MD September 28, 2017 11:10
[2017-09-28] MEDS: INSULIN DETEMIR 100 UNITS/ML VIAL SQ SCH ×2 (11:33→21:42)
[2017-09-28] MEDS: BUDESONIDE-FORMOTEROL 160/4.5 MCG INHALER INH SCH ×2 (11:34→21:39)
[2017-09-28 12:07] VITALS: BP 169/90; PULSE 60; RESP 16; TEMP 98.5; O2SAT 98
[2017-09-28] MEDS: VANCOMYCIN INJ 1,000 MG in SODIUM CHLOR 0.9% 250 ML INJ 250 ML IV SCH ×2 (13:23→21:41)
--- NOTE | 2017-09-28 13:33 | HHI.GIFU ---
Subjective Remarks Pt denies any nausea, vomiting Denies abdominal pain States pain in his back and legs Tolerating PO (Etelvina Dietz) Objective Vitals I&O Vital Signs Date Time Temp Pulse Resp B/P (MAP) Pulse Ox O2 Delivery O2 Flow Rate FiO2 09/28/17 08:07 98.3 56 16 117/72 (87) 100 09/28/17 04:41 18 09/28/17 04:00 98.4 63 18 162/69 (100) 98 09/28/17 00:06 19 09/28/17 00:06 19 09/28/17 00:00 99.2 65 17 156/81 (106) 97 09/27/17 21:45 Room Air 09/27/17 20:00 98.5 63 18 162/81 (108) 100 09/27/17 16:07 98.0 64 16 168/88 (114) 100 I/O 09/27/17 09/27/17 09/27/17 09/28/17 09/28/17 09/28/17 07:00 15:00 23:00 07:00 15:00 23:00 Intake Total 840 ml 670 ml 240 ml Output Total 1300 ml 1200 ml 950 ml Balance -460 ml -530 ml -710 ml Intake Oral 840 ml 420 ml 240 ml IV Total 250 ml Output Urine Total 1300 ml 1200 ml 950 ml # Voids 1 # Bowel Movements 0 0 1 Laboratory Date/Time Source Procedure Growth Status 09/22/17 16:48 Blood Other Aerobic Blood Culture - Final NO GROWTH IN 5 DAYS Complete 09/22/17 16:48 Blood Other Anaerobic Blood Culture - Final NO GROWTH IN 5 DAYS Complete 09/22/17 16:00 Wound Back Acid Fast Stain - Final NO ACID FAST BACILLI SEEN Resulted 09/22/17 16:00 Wound Back Mycobacterial Culture Pending Resulted Imaging Last Impressions Liver Ultrasound 09/23/17 0000 Signed Impressions: Service Date/Time: Saturday, September 23, 2017 16:20 - CONCLUSION: 1. There is enlarged liver and spleen with liver measuring up to 20 cm in length and spleen up to 17.9 cm in length. 2. Previous cholecystectomy without biliary ductal dilatation. No free fluid. Theodore Mckay MD Needle Biopsy/Aspiration X-Ray 09/22/17 1445 Signed Impressions: Service Date/Time: Friday, September 22, 2017 16:02 - CONCLUSION: Uncomplicated needle biopsy of the L1-2 disc as above. Stanton Beaulieu MD Lumbar Spine X-Ray 09/22/17 1122 Signed Impressions: Service Date/Time: Friday, September 22, 2017 12:14 - CONCLUSION: 1. Findings characteristic of discitis at L1-2. 2. Degenerative changes involving the lumbar spine. Ken Barnes MD Thoracic Spine MRI 09/20/17 0000 Signed Impressions: Service Date/Time: Wednesday, September 20, 2017 22:06 - CONCLUSION: Severe findings in the lumbar spine. See that report for further details. small disc protrusions at multiple levels in the thoracic spine, none producing significant anatomic compromise. Vishal Osorio MD Lumbar Spine MRI 09/20/17 0000 Signed Impressions: Service Date/Time: Wednesday, September 20, 2017 22:06 - CONCLUSION: Pathologic process centered at the L1-2 disc space level with compromise of the adjacent vertebrae felt most probably related to discitis and osteomyelitis. See above discussion. Vishal Osorio MD Physical Exam HEENT; Normocephalic; atraumatic CHEST: Even/unlabored CARDIAC: RRR ABDOMEN: Soft, nondistended, nontender, bowel sounds active SKIN: Normal; no rash; no jaundice. 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 (Etelvina Dietz [facility]) Assessment and Plan Plan ASSESSMENT - Cirrhosis Elevated LFTs with known history of Hepatitis C, states failed response to Ribavirin and Interferon multiple years ago. Previously diagnosed with Hepatitis B in March, discharged on Tenofovir but discontinued taking this due to finances US liver (09/23) --> . There is enlarged liver and spleen with liver measuring up to 20 cm in length and spleen up to 17.9 cm in length. Previous cholecystectomy without biliary ductal dilatation. No free fluid. Thrombocytopenia (platelets-118) Hypoalbuminemia (albumin-2.3) Current LFTs (09/26) AST-104 ALT-155 Alk phos-168 T bili-0.3 - Epigastric pain/tender to palpation- reports history of EGD with findings of esophageal varices, denies previous banding EGD (Mar 2017) --> Class A esophagitis, erythematous gastritis in the gastric antrum, normal duodenal mucosa in the bulb and second portion of the duodenum - Anemia, normocytic, no obvious GIB - osteomyelitis, discitis - neurosurgery following, ID following PLAN - EGD tomorrow - Obtain consent - NPO after MN - Hepatitis B quant pending - Hepatitis C genotype and quant pending - Protonix - Tenofovir restarted on 09/21 - Further recommendations based on findings of above Pt has been seen and examined by myself and Dr. Shrestha and this note is written on his behalf (Etelvina Dietz) Physician Comments Seen and examined with [employer]< liver quintana in progress. EGD/Dilation tomorrow. (Wayne Shrestha MD) Etelvina Dietz September 28, 2017 13:33 Wayne Shrestha MD September 28, 2017 20:58
[2017-09-28 16:07] VITALS: BP 142/88; PULSE 62; RESP 16; TEMP 98.3; O2SAT 99
[2017-09-28 20:00] VITALS: BP 124/67; PULSE 68; RESP 17; TEMP 98.4; O2SAT 100
[2017-09-28] MEDS: TAMSULOSIN HCL 0.4 MG CAP PO SCH (21:39)
[2017-09-29] VITALS: BP 158/81; PULSE 62; RESP 17; TEMP 99; O2SAT 98
[2017-09-29] MEDS: HYDROmorphone HCL 4 MG TAB PO PRN ×5 (03:40→20:46)
[2017-09-29 04:00] VITALS: BP 141/82; PULSE 70; RESP 17; TEMP 99.1; O2SAT 97
[2017-09-29] MEDS: GABAPENTIN 300 MG CAP PO SCH ×3 (05:35→20:47)
[2017-09-29] MEDS: MORPHINE SULFATE 15 MG CONTROLLED RELEASE TAB PO SCH ×3 (05:36→20:46)
[2017-09-29 07:04] LABS: HEMOGLOBIN 11.6 GM/DL (13.0-17.0); MEAN CELL VOLUME 84.5 FL (80.0-100.0); MEAN CORPUSCULAR HEMOGLOBIN 28.1 PG (27.0-34.0); MEAN CORPUSCULAR HGB CONC 33.3 % (32.0-36.0); MEAN PLATELET VOLUME 9.2 FL (7.0-11.0); PLATELET COUNT 95 TH/MM3 (150-450); RED BLOOD COUNT 4.14 MIL/MM3 (4.50-5.90); RED CELL DISTRIBUTION WIDTH 15.3 % (11.6-17.2); WHITE BLOOD COUNT 5.5 TH/MM3 (4.0-11.0)
[2017-09-29 07:30] LABS: BICARBONATE 28.5 MEQ/L (21.0-32.0); CALCIUM 7.9 MG/DL (8.5-10.1); CREATININE 0.8 MG/DL (0.60-1.30)
[2017-09-29 08:00] VITALS: BP 137/77; PULSE 65; RESP 18; TEMP 98.4; O2SAT 98
[2017-09-29] MEDS: INSULIN ASPART SUPPLEMENTAL SCALE SQ SCH ×4 (08:00→20:50)
[2017-09-29] MEDS: SODIUM CHLORIDE 0.9% FLUSH 10 ML FLUSH IV FLUSH SCH ×2 (08:10→20:48)
[2017-09-29] MEDS: DOCUSATE SODIUM 50 MG/SENNA 8.6 MG TAB PO SCH ×3 (08:45→20:45)
[2017-09-29] MEDS: DULoxetine HCl DR 20 MG CAP PO SCH ×2 (08:45→10:29)
[2017-09-29] MEDS: BACLOFEN 10 MG TAB PO SCH ×3 (08:45→20:47)
[2017-09-29] MEDS: BUDESONIDE-FORMOTEROL 160/4.5 MCG INHALER INH SCH ×2 (08:45→20:49)
[2017-09-29] MEDS: METOPROLOL TARTRATE 100 MG TAB PO SCH ×2 (08:45→10:29)
[2017-09-29] MEDS: ASPIRIN EC 81 MG TABEC PO SCH ×2 (08:45→10:29)
[2017-09-29] MEDS: INSULIN DETEMIR 100 UNITS/ML VIAL SQ SCH ×2 (08:46→20:50)
[2017-09-29] MEDS: PANTOPRAZOLE SOD 40 MG DELAYED RELEASE TAB PO SCH ×3 (08:46→20:47)
[2017-09-29] MEDS: TENOFOVIR DISOPROXIL FUMARATE 300 MG TAB PO SCH ×2 (08:46→10:29)
--- NOTE | 2017-09-29 09:21 | GIPROC ---
[facility] [address] [facility]. [facility], [id number] EGD WITH DILATION PROCEDURE REPORT EXAM DATE: 09/29/2017 PATIENT NAME: Tariq Parks MR#: [id number] BIRTHDATE: 1950 ATTENDING: Donna Sellers MD ORDER #: [id number] PROJECT MANAGEMENT PROFESSIONAL: Shiraz Willis and Marisela Alamo STATUS: inpatient INDICATIONS: The patient is a 67 yr old male here for an EGD with dilation due to dysphagia PROCEDURE PERFORMED: EGD w/ biopsy EGD w/ dilation of esophagus via guidewire MEDICATIONS: None and Per Anesthesia. TOPICAL ANESTHETIC: none CONSENT: The patient understands the risks and benefits of the procedure and understands that these risks include, but are not limited to: sedation, allergic reaction, infection, perforation and/or bleeding. Alternative means of evaluation and treatment include, among others: physical exam, x-rays, and/or surgical intervention. The patient elects to proceed with this endoscopic procedure. medical equipment was checked for proper function. Hand hygiene and appropriate measures for infection prevention was taken. After the risks, benefits and alternatives of the procedure were thoroughly explained, Informed consent was verified, confirmed and timeout was successfully executed by the treatment team. The patient was anesthetized with topical anesthesia and the Pentax EG-[id number] endoscope was introduced through the mouth and advanced to the second portion of the duodenum. The instrument was slowly withdrawn as the mucosa was fully examined. Duodenitis duodenla bulb-biopsy gastritis antrum-biopsy esophagitis-distal esophagus-biopsy stricture distal esophagus-s/p dilatation Savary dilator 17. Dilation was performed at gastroesophageal junction. DILATOR: SIZE(S): RESISTANCE: HEME: APPEARANCE: Dilator: Savary over guidewire Size(s): 17 COMMENT: Retroflexed views revealed a hiatal hernia ADVERSE EVENTS: There were no complications. IMPRESSIONS: 1. Duodenitis duodenla bulb-biopsy gastritis antrum-biopsy esophagitis-distal esophagus-biopsy stricture distal esophagus-s/p dilatation Savary dilator 17 2. Retroflexed views revealed a hiatal hernia RECOMMENDATIONS: 1. Await biopsy results. Biopsy results will not be ready for 7-10 days. If you don't hear from us in two weeks, call our office for biopsy results. 2. Anti-reflux regimen 3. Continue PPI 4. Dilatations PRN 5. Start PPI REPEAT EXAM: Return 1 year EGD Donna Sellers MD eSigned: Donna Sellers MD 09/29/2017 9:21 AM cc: PATIENT NAME: Tariq Parks Rohan MR#: [id number]
[2017-09-29] MEDS: VANCOMYCIN INJ 1,000 MG in SODIUM CHLOR 0.9% 250 ML INJ 250 ML IV SCH ×2 (10:31→20:51)
[2017-09-29 12:00] VITALS: BP 141/77; PULSE 61; RESP 18; TEMP 97.4; O2SAT 99
[2017-09-29] MEDS ORDERED: LIDOCAINE HCL 1% PF 5 ML SYRINGE OTHER ONE (12:00)
[2017-09-29] MEDS ORDERED: PROPOFOL 200 MG/20 ML AMP IV ONE (12:00)
--- NOTE | 2017-09-29 14:15 | RADRPT ---
EXAM DATE/TIME: 09/29/2017 08:23 [place] COMPARISON: RENOGRAM W/PHARM (DPTA/LASIX), April 25, 2016, 14:51. PRIOR BONE SCANS: No correlative bone scan available for comparison. INDICATIONS : Lumbar epidural abscess. Back pain radiating down the thighs with leg weakness. DOSE: 32.9 mCi Tc99m MDP IV MEDICAL HISTORY : Chronic obstructive pulmonary disease. Hypercholesterolemia. Hypertension. Hypertension. Deep vein th rombosis. Pancreatitis. Liver disease. Diabetes. SURGICAL HISTORY : Appendectomy. Cholecystectomy. Splenectomy. Colon resection. ENCOUNTER: Initial ACUITY: 1 week PAIN SCALE: 5/10 LOCATION: Lower back. TECHNIQUE: Bone scan was performed in sagittal, axial and coronal planes. Attenuation correction was performed with computed tomography and both the attenuation correction and non-attenuation corrected data sets were reviewed. FINDINGS: SPECT imaging of the lumbar spine was performed. In addition, fusion CT imaging is provided. The examination demonstrates extensive uptake across the L1-[address] source data demonstr ates destruction of the vertebral bodies at this level. There is uptake extending back into the pedic le portion of both vertebral bodies. Overall, the uptake on the bone scan is nonspecific. Gallium sca n for comparison and to provide increased specificity is pending. CONCLUSION: 1. Extensive uptake in the L1 and L2 vertebral bodies with cortical destruction noted on the CT data set. Overall uptake on the bone scan is nonspecific. Gallium imaging is pending for correlation. Natalio Way MD on September 29, 2017 at 13:59 Board Certified Radiologist. This report was verified electronically.
--- NOTE | 2017-09-29 14:17 | HHI.PR ---
Subjective Remarks Patient reports he is doing okay. Status post EGD today. Pain is controlled. Objective Vitals Vital Signs Date Time Temp Pulse Resp B/P (MAP) Pulse Ox O2 Delivery O2 Flow Rate FiO2 09/29/17 12:00 97.4 61 18 141/77 (98) 99 09/29/17 10:02 Room Air 09/29/17 09:15 98.6 62 20 101/58 (72) 97 09/29/17 08:00 98.4 65 18 137/77 (97) 98 09/29/17 04:55 18 09/29/17 04:00 99.1 70 17 141/82 (101) 97 09/29/17 04:00 Room Air 09/29/17 00:00 99.0 62 17 158/81 (106) 98 09/28/17 22:44 17 09/28/17 21:50 Room Air 09/28/17 20:00 98.4 68 17 124/67 (86) 100 09/28/17 16:07 98.3 62 16 142/88 (106) 99 I/O 09/28/17 09/28/17 09/28/17 09/29/17 09/29/17 09/29/17 07:00 15:00 23:00 07:00 15:00 23:00 Intake Total 240 ml 1130 ml 350 ml Output Total 950 ml 2800 ml 1460 ml Balance -710 ml -1670 ml -1460 ml 350 ml Intake Oral 240 ml 880 ml IV Total 250 ml 250 ml Other 100 ml Output Urine Total 950 ml 2800 ml 1460 ml # Voids 1 # Bowel Movements 1 2 Result Diagram: 09/29/17 0445 09/29/17 0445 Objective Remarks GENERAL: This is a well-nourished, well-developed patient, in no apparent distress. CARDIOVASCULAR: Regular rate and rhythm without murmurs, gallops, or rubs. RESPIRATORY: Clear to auscultation. Breath sounds equal bilaterally. No wheezes , rales, or rhonchi. GASTROINTESTINAL: Abdomen soft, non-tender, nondistended. Normal active bowel sounds MUSCULOSKELETAL: Extremities without clubbing, cyanosis, or edema. Complaint of tenderness to palpation of the lumbar area. NEURO: Alert & Oriented x4 to person, place, time, situation. Moves all ext x4 A/P Problem List: (1) Osteomyelitis ICD Code: M86.9 - Osteomyelitis, unspecified (2) Weakness ICD Code: R53.1 - Weakness (3) Leukocytosis ICD Code: D72.829 - Elevated white blood cell count, unspecified (4) DM (diabetes mellitus) ICD Code: E11.9 - Type 2 diabetes mellitus without complications Assessment and Plan 67 Y/O male with: Osteomyelitis: h/o L-Spine Epidural Abscess, s/p Lumbar Laminectomy by Dr. Fitzgerald 03/25/17, c/o back pain, seen at [facility] and had "abnormal CT", instructed to come to [place] for evaluation. MRI L-Spine w/ pathologic process centered at L1-L2 disc space with compromise of adjacent vertebra likely due to osteomyelitis/discitis.. -Neurosurgery and ID following. So far the cultures are negative. -Interventional radiology evaluated and recommended a bone and gallium scan first to better assess the area since prior biopsies have been negative. To be done tomorrow. Further plans will be based on the scan. On vancomycin per ID Weakness: ambulates w/ cane at baseline, reports worsening lower extremity weakness on presentation, continue physical therapy. Elevated LFT,with history of hepatitis B HBe positive in March 2017, Hep c pos. Had Partial treatment but didn't continue. - GI following. Status post EGD which showed esophagitis, duodenitis, esophageal stricture status post dilation. Recommendation for PPI. DM: Sliding scale w/ Accu-Cheks. DVT Prophylaxis: SCD/Teds Discharge Planning Workup ongoing. Continue antibiotics. Monique Min MD September 29, 2017 14:17
[2017-09-29 14:39] LABS: HCV RNA PCR IU/ML LESS THAN 15 IU/mL (Not Detected)
[2017-09-29 16:00] VITALS: BP_SYST 122; BP_SYST 125; BP_DIAS 61; BP_DIAS 67; PULSE 61; PULSE 62; RESP 18; TEMP 97.3; TEMP 98.2; O2SAT 95; O2SAT 96
[2017-09-29 20:00] VITALS: BP 138/73; PULSE 68; RESP 18; TEMP 99; O2SAT 100
[2017-09-29] MEDS: TAMSULOSIN HCL 0.4 MG CAP PO SCH (20:47)
[2017-09-30] VITALS: BP 170/82; PULSE 70; RESP 18; TEMP 98.4; O2SAT 99
[2017-09-30] MEDS: HYDROmorphone HCL 4 MG TAB PO PRN ×7 (00:58→21:22)
[2017-09-30] MEDS: GABAPENTIN 300 MG CAP PO SCH ×3 (05:36→21:24)
[2017-09-30] MEDS: MORPHINE SULFATE 15 MG CONTROLLED RELEASE TAB PO SCH ×3 (05:37→21:22)
[2017-09-30 06:00] VITALS: BP_SYST 142; BP_SYST 157; BP_DIAS 72; BP_DIAS 89; PULSE 77; PULSE 88; RESP 17; RESP 18; TEMP 97.9; TEMP 98.7; O2SAT 94; O2SAT 98
[2017-09-30 08:00] VITALS: BP 138/78; PULSE 66; RESP 16; TEMP 98.9; O2SAT 99
[2017-09-30] MEDS: INSULIN ASPART SUPPLEMENTAL SCALE SQ SCH ×4 (08:00→21:24)
[2017-09-30] MEDS: METOPROLOL TARTRATE 100 MG TAB PO SCH (08:04)
[2017-09-30] MEDS: DULoxetine HCl DR 20 MG CAP PO SCH (08:04)
[2017-09-30] MEDS: ASPIRIN EC 81 MG TABEC PO SCH (08:05)
[2017-09-30] MEDS: TENOFOVIR DISOPROXIL FUMARATE 300 MG TAB PO SCH (08:05)
[2017-09-30] MEDS: BACLOFEN 10 MG TAB PO SCH ×2 (08:05→21:23)
[2017-09-30] MEDS: PANTOPRAZOLE SOD 40 MG DELAYED RELEASE TAB PO SCH ×2 (08:05→21:23)
[2017-09-30] MEDS: DOCUSATE SODIUM 50 MG/SENNA 8.6 MG TAB PO SCH ×2 (08:07→21:00)
[2017-09-30] MEDS: INSULIN DETEMIR 100 UNITS/ML VIAL SQ SCH ×2 (08:08→21:24)
[2017-09-30] MEDS: SODIUM CHLORIDE 0.9% FLUSH 10 ML FLUSH IV FLUSH SCH ×2 (08:09→21:21)
[2017-09-30] MEDS: BUDESONIDE-FORMOTEROL 160/4.5 MCG INHALER INH SCH ×2 (08:09→21:21)
[2017-09-30] MEDS: VANCOMYCIN INJ 1,000 MG in SODIUM CHLOR 0.9% 250 ML INJ 250 ML IV SCH ×2 (09:44→21:25)
[2017-09-30 12:00] VITALS: BP 96/65; PULSE 61; RESP 16; TEMP 97.8; O2SAT 100
--- NOTE | 2017-09-30 12:39 | HHI.PR ---
Subjective Remarks Patient reports he is feeling okay today. Pain is controlled. No fevers or chills. Objective Vitals Vital Signs Date Time Temp Pulse Resp B/P (MAP) Pulse Ox O2 Delivery O2 Flow Rate FiO2 09/30/17 12:00 97.8 61 16 96/65 (75) 100 09/30/17 08:00 98.9 66 16 138/78 (98) 99 09/30/17 07:45 Room Air 09/30/17 06:00 97.9 88 17 157/89 (111) 94 09/30/17 00:00 98.4 70 18 170/82 (111) 99 09/29/17 20:00 Room Air 09/29/17 20:00 99.0 68 18 138/73 (94) 100 09/29/17 16:00 98.2 62 18 125/67 (86) 96 I/O 09/29/17 09/29/17 09/29/17 09/30/17 09/30/17 09/30/17 07:00 15:00 23:00 07:00 15:00 23:00 Intake Total 350 ml 1200 ml 0 ml Output Total 1460 ml 800 ml Balance -1460 ml 350 ml 1200 ml -800 ml Intake Oral 1200 ml 0 ml IV Total 250 ml Other 100 ml Output Urine Total 1460 ml 800 ml # Voids 6 # Bowel Movements 3 2 Result Diagram: 09/29/17 0445 09/29/17 0445 Imaging Last Impressions Bone Scan Nuclear Medicine 09/29/17 0000 Signed Impressions: Service Date/Time: Friday, September 29, 2017 08:23 - CONCLUSION: 1. Extensive uptake in the L1 and L2 vertebral bodies with cortical destruction noted on the CT data set. Overall uptake on the bone scan is nonspecific. Gallium imaging is pending for correlation. Natalio Way MD Liver Ultrasound 09/23/17 0000 Signed Impressions: Service Date/Time: Saturday, September 23, 2017 16:20 - CONCLUSION: 1. There is enlarged liver and spleen with liver measuring up to 20 cm in length and spleen up to 17.9 cm in length. 2. Previous cholecystectomy without biliary ductal dilatation. No free fluid. Theodore Mckay MD Needle Biopsy/Aspiration X-Ray 09/22/17 1445 Signed Impressions: Service Date/Time: Friday, September 22, 2017 16:02 - CONCLUSION: Uncomplicated needle biopsy of the L1-2 disc as above. Stanton Beaulieu MD Lumbar Spine X-Ray 09/22/17 1122 Signed Impressions: Service Date/Time: Friday, September 22, 2017 12:14 - CONCLUSION: 1. Findings characteristic of discitis at L1-2. 2. Degenerative changes involving the lumbar spine. Ken Barnes MD Thoracic Spine MRI 09/20/17 0000 Signed Impressions: Service Date/Time: Wednesday, September 20, 2017 22:06 - CONCLUSION: Severe findings in the lumbar spine. See that report for further details. small disc protrusions at multiple levels in the thoracic spine, none producing significant anatomic compromise. Vishal Osorio MD Lumbar Spine MRI 09/20/17 0000 Signed Impressions: Service Date/Time: Wednesday, September 20, 2017 22:06 - CONCLUSION: Pathologic process centered at the L1-2 disc space level with compromise of the adjacent vertebrae felt most probably related to discitis and osteomyelitis. See above discussion. Vishal Osorio MD Objective Remarks GENERAL: This is a well-nourished, well-developed patient, in no apparent distress. CARDIOVASCULAR: Regular rate and rhythm without murmurs, gallops, or rubs. RESPIRATORY: Clear to auscultation. Breath sounds equal bilaterally. No wheezes , rales, or rhonchi. GASTROINTESTINAL: Abdomen soft, non-tender, nondistended. Normal active bowel sounds MUSCULOSKELETAL: Extremities without clubbing, cyanosis, or edema. Complaint of tenderness to palpation of the lumbar area. NEURO: Alert & Oriented x4 to person, place, time, situation. Moves all ext x4 A/P Problem List: (1) Osteomyelitis ICD Code: M86.9 - Osteomyelitis, unspecified (2) Weakness ICD Code: R53.1 - Weakness (3) Leukocytosis ICD Code: D72.829 - Elevated white blood cell count, unspecified (4) DM (diabetes mellitus) ICD Code: E11.9 - Type 2 diabetes mellitus without complications Assessment and Plan 67 Y/O male with: Osteomyelitis: h/o L-Spine Epidural Abscess, s/p Lumbar Laminectomy by Dr. Fitzgerald 03/25/17, c/o back pain, seen at [facility] and had "abnormal CT", instructed to come to [place] for evaluation. MRI L-Spine w/ pathologic process centered at L1-L2 disc space with compromise of adjacent vertebra likely due to osteomyelitis/discitis.. -Neurosurgery and ID following. So far the cultures are negative. -Interventional radiology evaluated and recommended a bone and gallium scan first to better assess the area since prior biopsies have been negative. -Bone scan noted above showing extensive uptake in the L1 and L2 vertebral bodies with cortical destruction noted on the CT. gallium scan to be done on Friday to correlate. Further plans based on the results. - continue IV antibiotics per ID Weakness: ambulates w/ cane at baseline, reports worsening lower extremity weakness on presentation, continue physical therapy. Elevated LFT, with history of hepatitis B HBe positive in March 2017, Hep c pos. Had Partial treatment but didn't continue. - GI following. Status post EGD which showed esophagitis, duodenitis, esophageal stricture status post dilation. Recommendation for PPI. DM: Sliding scale w/ Accu-Cheks. DVT Prophylaxis: SCD/Teds Discharge Planning Workup ongoing. Gallium scan to be done on Friday, further plans based on the results. Continue antibiotics. Monique Min MD September 30, 2017 12:39
--- NOTE | 2017-09-30 13:12 | HHI.GIFU ---
Subjective Remarks ambulating with walker no GI complaints. 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) Objective Vitals I&O Vital Signs Date Time Temp Pulse Resp B/P (MAP) Pulse Ox O2 Delivery O2 Flow Rate FiO2 09/30/17 12:00 97.8 61 16 96/65 (75) 100 09/30/17 08:00 98.9 66 16 138/78 (98) 99 09/30/17 07:45 Room Air 09/30/17 06:00 97.9 88 17 157/89 (111) 94 09/30/17 00:00 98.4 70 18 170/82 (111) 99 09/29/17 20:00 Room Air 09/29/17 20:00 99.0 68 18 138/73 (94) 100 09/29/17 16:00 98.2 62 18 125/67 (86) 96 I/O 09/29/17 09/29/17 09/29/17 09/30/17 09/30/17 09/30/17 07:00 15:00 23:00 07:00 15:00 23:00 Intake Total 350 ml 1200 ml 0 ml Output Total 1460 ml 800 ml Balance -1460 ml 350 ml 1200 ml -800 ml Intake Oral 1200 ml 0 ml IV Total 250 ml Other 100 ml Output Urine Total 1460 ml 800 ml # Voids 6 # Bowel Movements 3 2 Laboratory Date/Time Source Procedure Growth Status 09/22/17 16:48 Blood Other Aerobic Blood Culture - Final NO GROWTH IN 5 DAYS Complete 09/22/17 16:48 Blood Other Anaerobic Blood Culture - Final NO GROWTH IN 5 DAYS Complete 09/22/17 16:00 Wound Back Acid Fast Stain - Final NO ACID FAST BACILLI SEEN Resulted 09/22/17 16:00 Wound Back Mycobacterial Culture - Preliminary NO GROWTH IN 1 WEEK Resulted Imaging Last Impressions Bone Scan Nuclear Medicine 09/29/17 0000 Signed Impressions: Service Date/Time: Friday, September 29, 2017 08:23 - CONCLUSION: 1. Extensive uptake in the L1 and L2 vertebral bodies with cortical destruction noted on the CT data set. Overall uptake on the bone scan is nonspecific. Gallium imaging is pending for correlation. Natalio Way MD Liver Ultrasound 09/23/17 0000 Signed Impressions: Service Date/Time: Saturday, September 23, 2017 16:20 - CONCLUSION: 1. There is enlarged liver and spleen with liver measuring up to 20 cm in length and spleen up to 17.9 cm in length. 2. Previous cholecystectomy without biliary ductal dilatation. No free fluid. Theodore Mckay MD Needle Biopsy/Aspiration X-Ray 09/22/17 1445 Signed Impressions: Service Date/Time: Friday, September 22, 2017 16:02 - CONCLUSION: Uncomplicated needle biopsy of the L1-2 disc as above. Stanton Beaulieu MD Lumbar Spine X-Ray 09/22/17 1122 Signed Impressions: Service Date/Time: Friday, September 22, 2017 12:14 - CONCLUSION: 1. Findings characteristic of discitis at L1-2. 2. Degenerative changes involving the lumbar spine. Ken Barnes MD Thoracic Spine MRI 09/20/17 0000 Signed Impressions: Service Date/Time: Wednesday, September 20, 2017 22:06 - CONCLUSION: Severe findings in the lumbar spine. See that report for further details. small disc protrusions at multiple levels in the thoracic spine, none producing significant anatomic compromise. Vishal Osorio MD Lumbar Spine MRI 09/20/17 0000 Signed Impressions: Service Date/Time: Wednesday, September 20, 2017 22:06 - CONCLUSION: Pathologic process centered at the L1-2 disc space level with compromise of the adjacent vertebrae felt most probably related to discitis and osteomyelitis. See above discussion. Vishal Osorio MD Physical Exam HEENT; Normocephalic; atraumatic CHEST: Even/unlabored CARDIAC: RRR ABDOMEN: Soft, nontender, bowel sounds active wearing brace SKIN: Normal; no rash; no jaundice. 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 (Isabelle Gold [facility]) Assessment and Plan Plan ASSESSMENT - Cirrhosis Elevated LFTs with known history of Hepatitis C, states failed response to Ribavirin and Interferon multiple years ago. Previously diagnosed with Hepatitis B in March, discharged on Tenofovir but discontinued taking this due to finances US liver (09/23) --> . There is enlarged liver and spleen with liver measuring up to 20 cm in length and spleen up to 17.9 cm in length. Previous cholecystectomy without biliary ductal dilatation. No free fluid. Thrombocytopenia (platelets-118) Hypoalbuminemia (albumin-2.3) Current LFTs (09/26) AST-104 ALT-155 Alk phos-168 T bili-0.3 - Epigastric pain/tender to palpation- reports history of EGD with findings of esophageal varices, denies previous banding EGD (Mar 2017) --> Class A esophagitis, erythematous gastritis in the gastric antrum, normal duodenal mucosa in the bulb and second portion of the duodenum - Anemia, normocytic, no obvious GIB - osteomyelitis, discitis - neurosurgery following, ID following 09/30/17 s/p EGD and dilatation revealing d uodenitis, gastritis, hiatal hernia. doing well today. LFTs stable. on tenofovir hcv quant and genotype not detected. HBV quant pending. PLAN - ANTONIO - await Hepatitis B quant - Protonix - continue tenofovir Pt has been seen and examined by myself and and this note is on her behalf (Isabelle Gold) Isabelle Gold September 30, 2017 13:12 Donna Sellers MD September 30, 2017 15:44
[2017-09-30 16:00] VITALS: BP 138/75; PULSE 62; RESP 16; TEMP 98.3; O2SAT 98
[2017-09-30 20:00] VITALS: BP 172/88; PULSE 71; RESP 18; TEMP 98.8; O2SAT 100
[2017-09-30] MEDS: TAMSULOSIN HCL 0.4 MG CAP PO SCH (21:23)
[2017-10-01] VITALS: BP 148/85; PULSE 71; RESP 18; TEMP 99.1; O2SAT 99
[2017-10-01] MEDS: HYDROmorphone HCL 4 MG TAB PO PRN ×5 (01:08→22:02)
[2017-10-01 04:00] VITALS: BP 121/72; PULSE 75; RESP 18; TEMP 98.2; O2SAT 99
[2017-10-01] MEDS: MORPHINE SULFATE 15 MG CONTROLLED RELEASE TAB PO SCH ×3 (05:13→22:02)
[2017-10-01] MEDS: GABAPENTIN 300 MG CAP PO SCH ×3 (05:13→22:02)
[2017-10-01] MEDS: INSULIN ASPART SUPPLEMENTAL SCALE SQ SCH ×4 (08:00→21:00)
[2017-10-01 08:07] VITALS: BP 138/86; PULSE 66; RESP 17; TEMP 98.3; O2SAT 99
[2017-10-01 08:11] LABS: HEMATOCRIT 32.9 % (39.0-51.0); HEMOGLOBIN 10.8 GM/DL (13.0-17.0); MEAN CELL VOLUME 84.8 FL (80.0-100.0); MEAN CORPUSCULAR HEMOGLOBIN 27.8 PG (27.0-34.0); MEAN CORPUSCULAR HGB CONC 32.8 % (32.0-36.0); PLATELET COUNT 92 TH/MM3 (150-450); RED BLOOD COUNT 3.88 MIL/MM3 (4.50-5.90); RED CELL DISTRIBUTION WIDTH 15.3 % (11.6-17.2); WHITE BLOOD COUNT 6.1 TH/MM3 (4.0-11.0)
[2017-10-01] MEDS ORDERED: SOD PHOSPHATE/SOD BIPHOSPHATE (ADULT) ENEMA 133ML RECTAL ONE (08:30)
[2017-10-01 08:35] LABS: ALBUMIN 2.6 GM/DL (3.4-5.0); BICARBONATE 27.3 MEQ/L (21.0-32.0); CALCIUM 8.1 MG/DL (8.5-10.1); CREATININE 0.79 MG/DL (0.60-1.30)
[2017-10-01 08:36] LABS: DIRECT BILIRUBIN ADULT 0.2 MG/DL (0.0-0.2)
[2017-10-01 08:38] LABS: INDIRECT BILIRUBIN 0.3 MG/DL (0.0-0.8); TOTAL BILIRUBIN ADULT 0.5 MG/DL (0.2-1.0); TOTAL PROTEIN 7.2 GM/DL (6.4-8.2)
[2017-10-01] MEDS: BUDESONIDE-FORMOTEROL 160/4.5 MCG INHALER INH SCH ×2 (09:00→22:03)
[2017-10-01] MEDS: SODIUM CHLORIDE 0.9% FLUSH 10 ML FLUSH IV FLUSH SCH ×2 (09:00→22:03)
[2017-10-01] MEDS: DOCUSATE SODIUM 50 MG/SENNA 8.6 MG TAB PO SCH ×2 (09:00→21:00)
--- NOTE | 2017-10-01 09:40 | HHI.PR ---
Subjective Remarks Patient was seen in the afternoon after test. The patient is crying in the room says his brother and he needs to go to his tomorrow [place]. Discussed with infectious disease Dr. merida and scan reviewed plan to discontinue the antibiotics and patient can be discharged tomorrow from ID standpoint, monitor patient overnight. Patient denies any pain at this time. No nausea vomiting. Able to eat. No fever or chills. Objective Vitals Vital Signs Date Time Temp Pulse Resp B/P (MAP) Pulse Ox O2 Delivery O2 Flow Rate FiO2 10/01/17 04:00 98.2 75 18 121/72 (88) 99 10/01/17 00:00 99.1 71 18 148/85 (106) 99 10/01/17 00:00 Room Air 09/30/17 20:00 Room Air 09/30/17 20:00 98.8 71 18 172/88 (116) 100 09/30/17 16:00 98.3 62 16 138/75 (96) 98 09/30/17 12:00 97.8 61 16 96/65 (75) 100 I/O 09/30/17 09/30/17 09/30/17 10/01/17 10/01/17 10/01/17 07:00 15:00 23:00 07:00 15:00 23:00 Intake Total 0 ml 1330 ml 120 ml Output Total 800 ml Balance -800 ml 1330 ml 120 ml Intake Oral 0 ml 1080 ml 120 ml IV Total 250 ml Output Urine Total 800 ml # Voids 4 2 # Bowel Movements 2 3 2 Result Diagram: 10/01/17 0500 10/01/17 0500 Imaging Last Impressions Bone Scan Nuclear Medicine 09/29/17 0000 Signed Impressions: Service Date/Time: Friday, September 29, 2017 08:23 - CONCLUSION: 1. Extensive uptake in the L1 and L2 vertebral bodies with cortical destruction noted on the CT data set. Overall uptake on the bone scan is nonspecific. Gallium imaging is pending for correlation. Natalio Way MD Liver Ultrasound 09/23/17 0000 Signed Impressions: Service Date/Time: Saturday, September 23, 2017 16:20 - CONCLUSION: 1. There is enlarged liver and spleen with liver measuring up to 20 cm in length and spleen up to 17.9 cm in length. 2. Previous cholecystectomy without biliary ductal dilatation. No free fluid. Theodore Mckay MD Needle Biopsy/Aspiration X-Ray 09/22/17 1445 Signed Impressions: Service Date/Time: Friday, September 22, 2017 16:02 - CONCLUSION: Uncomplicated needle biopsy of the L1-2 disc as above. Stanton Beaulieu MD Lumbar Spine X-Ray 09/22/17 1122 Signed Impressions: Service Date/Time: Friday, September 22, 2017 12:14 - CONCLUSION: 1. Findings characteristic of discitis at L1-2. 2. Degenerative changes involving the lumbar spine. Ken Barnes MD Thoracic Spine MRI 09/20/17 0000 Signed Impressions: Service Date/Time: Wednesday, September 20, 2017 22:06 - CONCLUSION: Severe findings in the lumbar spine. See that report for further details. small disc protrusions at multiple levels in the thoracic spine, none producing significant anatomic compromise. Vishal Osorio MD Lumbar Spine MRI 09/20/17 0000 Signed Impressions: Service Date/Time: Wednesday, September 20, 2017 22:06 - CONCLUSION: Pathologic process centered at the L1-2 disc space level with compromise of the adjacent vertebrae felt most probably related to discitis and osteomyelitis. See above discussion. Vishal Osorio MD Objective Remarks GENERAL: This is a well-nourished, well-developed patient, in no apparent distress. CARDIOVASCULAR: Regular rate and rhythm without murmurs, gallops, or rubs. RESPIRATORY: Clear to auscultation. Breath sounds equal bilaterally. No wheezes , rales, or rhonchi. GASTROINTESTINAL: Abdomen soft, non-tender, nondistended. Normal active bowel sounds MUSCULOSKELETAL: Extremities without clubbing, cyanosis, or edema. Complaint of tenderness to palpation of the lumbar area. NEURO: Alert & Oriented x4 to person, place, time, situation. Moves all ext x4 A/P Problem List: (1) Osteomyelitis ICD Code: M86.9 - Osteomyelitis, unspecified (2) Weakness ICD Code: R53.1 - Weakness (3) Leukocytosis ICD Code: D72.829 - Elevated white blood cell count, unspecified (4) DM (diabetes mellitus) ICD Code: E11.9 - Type 2 diabetes mellitus without complications Assessment and Plan 67 Y/O male with: Osteomyelitis: h/o L-Spine Epidural Abscess, s/p Lumbar Laminectomy by Dr. Fitzgerald 03/25/17, c/o back pain, seen at [facility] and had "abnormal CT", instructed to come to [place] for evaluation. MRI L-Spine w/ pathologic process centered at L1-L2 disc space with compromise of adjacent vertebra likely due to osteomyelitis/discitis.. -Neurosurgery and ID following. So far the cultures are negative. -Interventional radiology evaluated and recommended a bone and gallium scan first to better assess the area since prior biopsies have been negative. -Bone scan noted above showing extensive uptake in the L1 and L2 vertebral bodies with cortical destruction noted on the CT. gallium scan 10/01 on Friday to correlate. Further plans based on the results. - continue IV antibiotics per ID Weakness: ambulates w/ cane at baseline, reports worsening lower extremity weakness on presentation, continue physical therapy. Elevated LFT, with history of hepatitis B HBe positive in March 2017, Hep c pos. Had Partial treatment but didn't continue. - GI following. Status post EGD which showed esophagitis, duodenitis, esophageal stricture status post dilation. Recommendation for PPI. DM2: Sliding scale w/ Accu-Cheks. DVT Prophylaxis: SCD/Teds Discharge Planning S/p Gallium scan 10/01, findings reviewed with infectious disease specialist Dr. Burnette. Plan to discontinue antibiotics. Monitor patient overnight. Patient can be discharged tomorrow morning if stable. Addis Valles MD October 01, 2017 09:40
--- NOTE | 2017-10-01 11:05 | HHI.GIFU ---
Subjective Remarks Going for Gallium scan. Denies abd pain. WAnts to go home. (Isabelle Gold) Objective Vitals I&O Vital Signs Date Time Temp Pulse Resp B/P (MAP) Pulse Ox O2 Delivery O2 Flow Rate FiO2 10/01/17 08:07 98.3 66 17 138/86 (103) 99 10/01/17 04:00 98.2 75 18 121/72 (88) 99 10/01/17 00:00 99.1 71 18 148/85 (106) 99 10/01/17 00:00 Room Air 09/30/17 20:00 Room Air 09/30/17 20:00 98.8 71 18 172/88 (116) 100 09/30/17 16:00 98.3 62 16 138/75 (96) 98 09/30/17 12:00 97.8 61 16 96/65 (75) 100 I/O 09/30/17 09/30/17 09/30/17 10/01/17 10/01/17 10/01/17 07:00 15:00 23:00 07:00 15:00 23:00 Intake Total 0 ml 1330 ml 120 ml Output Total 800 ml Balance -800 ml 1330 ml 120 ml Intake Oral 0 ml 1080 ml 120 ml IV Total 250 ml Output Urine Total 800 ml # Voids 4 2 # Bowel Movements 2 3 2 Laboratory Laboratory Tests Test 10/01/17 05:00 White Blood Count 6.1 Red Blood Count 3.88 Hemoglobin 10.8 Hematocrit 32.9 Mean Corpuscular Volume 84.8 Mean Corpuscular Hemoglobin 27.8 Mean Corpuscular Hemoglobin Concent 32.8 Red Cell Distribution Width 15.3 Platelet Count 92 Mean Platelet Volume 9.0 Blood Urea Nitrogen 13 Creatinine 0.79 Random Glucose 135 Total Protein 7.2 Albumin 2.6 Calcium Level 8.1 Alkaline Phosphatase 204 Aspartate Amino Transf (AST/SGOT) 116 Alanine Aminotransferase (ALT/SGPT) 141 Total Bilirubin 0.5 Direct Bilirubin 0.2 Sodium Level 137 Potassium Level 4.0 Chloride Level 103 Carbon Dioxide Level 27.3 Anion Gap 7 Estimat Glomerular Filtration Rate 98 Indirect Bilirubin 0.3 Date/Time Source Procedure Growth Status 09/22/17 16:48 Blood Other Aerobic Blood Culture - Final NO GROWTH IN 5 DAYS Complete 09/22/17 16:48 Blood Other Anaerobic Blood Culture - Final NO GROWTH IN 5 DAYS Complete 09/22/17 16:00 Wound Back Acid Fast Stain - Final NO ACID FAST BACILLI SEEN Resulted 09/22/17 16:00 Wound Back Mycobacterial Culture - Preliminary NO GROWTH IN 1 WEEK Resulted Imaging Last Impressions Bone Scan Nuclear Medicine 09/29/17 0000 Signed Impressions: Service Date/Time: Friday, September 29, 2017 08:23 - CONCLUSION: 1. Extensive uptake in the L1 and L2 vertebral bodies with cortical destruction noted on the CT data set. Overall uptake on the bone scan is nonspecific. Gallium imaging is pending for correlation. Natalio Way MD Liver Ultrasound 09/23/17 0000 Signed Impressions: Service Date/Time: Saturday, September 23, 2017 16:20 - CONCLUSION: 1. There is enlarged liver and spleen with liver measuring up to 20 cm in length and spleen up to 17.9 cm in length. 2. Previous cholecystectomy without biliary ductal dilatation. No free fluid. Theodore Mckay MD Needle Biopsy/Aspiration X-Ray 09/22/17 1445 Signed Impressions: Service Date/Time: Friday, September 22, 2017 16:02 - CONCLUSION: Uncomplicated needle biopsy of the L1-2 disc as above. Stanton Beaulieu MD Lumbar Spine X-Ray 09/22/17 1122 Signed Impressions: Service Date/Time: Friday, September 22, 2017 12:14 - CONCLUSION: 1. Findings characteristic of discitis at L1-2. 2. Degenerative changes involving the lumbar spine. Ken Barnes MD Thoracic Spine MRI 09/20/17 0000 Signed Impressions: Service Date/Time: Wednesday, September 20, 2017 22:06 - CONCLUSION: Severe findings in the lumbar spine. See that report for further details. small disc protrusions at multiple levels in the thoracic spine, none producing significant anatomic compromise. Vishal Osorio MD Lumbar Spine MRI 09/20/17 0000 Signed Impressions: Service Date/Time: Wednesday, September 20, 2017 22:06 - CONCLUSION: Pathologic process centered at the L1-2 disc space level with compromise of the adjacent vertebrae felt most probably related to discitis and osteomyelitis. See above discussion. Vishal Osorio MD Physical Exam HEENT; Normocephalic; atraumatic CHEST: Even/unlabored CARDIAC: RRR ABDOMEN: Soft, nontender, bowel sounds active wearing brace SKIN: Normal; no rash; no jaundice. 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 (Isabelle Gold) Assessment and Plan Plan ASSESSMENT - Cirrhosis Elevated LFTs with known history of Hepatitis C, states failed response to Ribavirin and Interferon multiple years ago. Previously diagnosed with Hepatitis B in March, discharged on Tenofovir but discontinued taking this due to finances US liver (09/23) --> . There is enlarged liver and spleen with liver measuring up to 20 cm in length and spleen up to 17.9 cm in length. Previous cholecystectomy without biliary ductal dilatation. No free fluid. Thrombocytopenia (platelets-118) Hypoalbuminemia (albumin-2.3) Current LFTs (09/26) AST-104 ALT-155 Alk phos-168 T bili-0.3 - Epigastric pain/tender to palpation- reports history of EGD with findings of esophageal varices, denies previous banding EGD (Mar 2017) --> Class A esophagitis, erythematous gastritis in the gastric antrum, normal duodenal mucosa in the bulb and second portion of the duodenum - Anemia, normocytic, no obvious GIB - osteomyelitis, discitis - neurosurgery following, ID following 09/30/17 s/p EGD and dilatation revealing d uodenitis, gastritis, hiatal hernia. doing well today. LFTs stable. on tenofovir hcv quant and genotype not detected. HBV quant pending. 10/01/17 path EGD esophagitis, fungal eval pending. going for gallium scan per ID. PLAN - ANTONIO - await Hepatitis B quant - Protonix - continue tenofovir - await gallium scan Pt has been seen and examined by myself and and this note is on her behalf (Isabelle Gold) Isabelle Gold October 01, 2017 11:05 Donna Sellers MD October 01, 2017 14:38
[2017-10-01 12:07] VITALS: BP 156/89; PULSE 64; RESP 16; TEMP 97.4; O2SAT 100
[2017-10-01] MEDS: DULoxetine HCl DR 20 MG CAP PO SCH (13:30)
[2017-10-01] MEDS: BACLOFEN 10 MG TAB PO SCH ×2 (13:30→22:02)
[2017-10-01] MEDS: ASPIRIN EC 81 MG TABEC PO SCH (13:30)
[2017-10-01] MEDS: TENOFOVIR DISOPROXIL FUMARATE 300 MG TAB PO SCH (13:31)
[2017-10-01] MEDS: PANTOPRAZOLE SOD 40 MG DELAYED RELEASE TAB PO SCH ×2 (13:31→22:02)
[2017-10-01] MEDS: METOPROLOL TARTRATE 100 MG TAB PO SCH (13:31)
[2017-10-01] MEDS: VANCOMYCIN INJ 1,000 MG in SODIUM CHLOR 0.9% 250 ML INJ 250 ML IV SCH (13:31)
[2017-10-01] MEDS: INSULIN DETEMIR 100 UNITS/ML VIAL SQ SCH ×2 (13:31→22:04)
--- NOTE | 2017-10-01 15:50 | RADRPT ---
EXAM DATE/TIME: 10/01/2017 10:05 [facility] COMPARISON: SPINE LUMBAR LTD (AP & LAT), September 22, 2017, 12:14. BONE SCAN, SPECT, September 29, 2017, 8:23. INDICATIONS : Lumbar epidural abscess. Back pain radiating down the thighs with leg weakness. DOSE: 6.4 mCi Gallium 67 Citrate IV SPECT IMAGIN hrs RADIATION DOSE: The MEDICAL HISTORY : Chronic obstructive pulmonary disease. Hypercholesterolemia. Renal insufficiency. Hypertension. Deep vein thrombosis. Pancreatitis. Liver disease. Diabetes. SURGICAL HISTORY : Appendectomy. Cholecystectomy. Splenectomy. Colon resection. ENCOUNTER: Initial ACUITY: 1 week PAIN SCALE: 5/10 LOCATION: Lower back. TECHNIQUE: SPECT/CT imaging was performed at the specified times after intravenous administration of radiogalliu m in sagittal, axial and coronal planes Attenuation correction was performed with computed tomograp hy and both the attenuation correction and non-attenuated corrected sets were reviewed. FINDINGS: The examination demonstrates low-grade gallium accumulation in the lumbar spine across the endplates at the L1/L2 level. The remainder of the gallium imaging demonstrates normal distribution of tracer. Gallium to bone ratio was calculated at 0.32. This would suggest the uptake is secondary to the sever e degenerative changes associated with the cortical destruction rather than active osteomyelitis at t his time. CONCLUSION: 1. The gallium to bone ratio is less than one as such, the exam would suggest the uptake is due to th e severe degenerative changes rather than osteomyelitis.. Natalio Way MD on October 01, 2017 at 15:18 Board Certified Radiologist. This report was verified electronically.
--- NOTE | 2017-10-01 15:57 | HHI.IDPN ---
Note Infectious Disease Note Patient says the pain in the back is the same/unchanged. Highest level is 6/10. Patient is tearful about use of his younger brother's . Able to sit upright in bed without difficulty. Able to participate with PT. No fevers. Denies chills. L1 - L2 disc aspirate culture negative. Gallium bone scan is evidence of healed treated infection. Gallium scan shows no evidence of acute infection. 67-year-old white male who has been treated for osteomyelitis and lumbar epidural abscess due to MSSA in late 2016. The patient completed antibiotics towards the end of 04/2017. He was discharged from rehab facility to home. He was doing well at home. He presented to the emergency department on 09/20 because of back pain. He developed increasing weakness in his lower extremities and notes that he was having severe pain when he would stand upright. He was seen at [facility] and a CT scan was performed and he was subsequently transferred to [place] because of an abnormality noted on the CT scan. PAST MEDICAL HISTORY: Hypertension, diabetes mellitus, COPD, hepatitis C, cirrhosis of the liver, esophageal varices, history of bowel resection for ischemic colitis, history of lumbar spine laminectomy in 2017, appendectomy, cholecystectomy, left hand surgery, tympanostomy. ALLERGIES: PENTAZOCINE, CODEINE, BUTORPHANOL, IODINE CONTRAST. MEDICATIONS: Current Medications Medications (Trade) Dose Ordered Sig/Jaya Route PRN Reason Start Time Stop Time Status Last Admin Dose Admin Dextrose (D50w (Vial) Inj) 50 ml UNSCH PRN IV PUSH HYPOGLYCEMIA-SEE COMMENTS 09/21/17 00:00 Glucagon (Glucagon Inj) 1 mg UNSCH PRN OTHER HYPOGLYCEMIA-SEE COMMENTS 09/21/17 00:00 Insulin Aspart (NovoLOG SUPPLEMENTAL SCALE) 1 ACHS SLIDING SCALE SQ 09/21/17 08:00 10/01/17 13:17 Sodium Chloride (NS Flush) 2 ml UNSCH PRN IV FLUSH FLUSH AFTER USING IV ACCESS 09/21/17 00:00 Sodium Chloride (NS Flush) 2 ml BID IV FLUSH 09/21/17 09:00 10/01/17 09:00 Ondansetron HCl (Zofran Inj) 4 mg Q6H PRN IVP NAUSEA OR VOMITING 09/21/17 00:00 Acetaminophen (Tylenol) 650 mg Q6H PRN PO FEVER/PAIN SCALE 1 TO 2 09/21/17 00:00 Senna/Docusate Sodium (Shaila-Colace) 1 tab BID PO 09/21/17 09:00 09/27/17 08:20 Magnesium Hydroxide (Milk Of Magnesia Liq) 30 ml Q12H PRN PO Mild constipation 09/21/17 00:00 Sennosides (Senokot) 17.2 mg Q12H PRN PO Moderate constipation 09/21/17 00:00 Bisacodyl (Dulcolax Supp) 10 mg DAILY PRN RECTAL SEVERE CONSITIPATION 09/21/17 00:00 Lactulose (Lactulose Liq) 30 ml DAILY PRN PO SEVERE CONSITIPATION 09/21/17 00:00 Aspirin (Ecotrin Ec) 81 mg DAILY PO 09/21/17 09:00 10/01/17 13:30 Baclofen (Lioresal) 10 mg Q12HR PO 09/21/17 09:00 10/01/17 13:30 Budesonide/ Formoterol Fumarate (Symbicort 160-4.5 Mcg Inh) 1 puff Q12HR INH 09/21/17 09:00 10/01/17 09:00 Insulin Detemir (Levemir Inj) 8 units BID SQ 09/21/17 09:00 10/01/17 13:31 Metoprolol Tartrate (Lopressor) 100 mg DAILY PO 09/21/17 09:00 10/01/17 13:31 Tamsulosin HCl (Flomax) 0.4 mg HS PO 09/21/17 21:00 09/30/17 21:23 Tenofovir Disoproxil Fumarate (Viread) 300 mg DAILY PO 09/21/17 09:00 10/01/17 13:31 Hydromorphone HCl (Dilaudid) 4 mg Q4H PRN PO PAIN 3-5 09/21/17 00:15 10/01/17 13:16 Morphine Sulfate (Oramorph Sr) 15 mg Q8HR PO 09/21/17 06:00 10/01/17 13:16 Duloxetine HCl (Cymbalta Dr) 20 mg DAILY PO 09/21/17 09:00 10/01/17 13:30 Gabapentin (Neurontin) 600 mg Q8HR PO 09/22/17 14:00 10/01/17 13:16 Vancomycin HCl 1000 mg/Sodium Chloride 250 ml @ 250 mls/hr Q12H IV 09/22/17 10:00 10/01/17 13:31 Morphine Sulfate (Morphine Inj) 4 mg Q3H PRN IV PUSH Pain 6-10 09/22/17 10:15 09/27/17 23:29 Pantoprazole Sodium (Protonix) 40 mg Q12HR PO 09/26/17 12:45 10/01/17 13:31 Objective: Vital Signs Date Time Temp Pulse Resp B/P (MAP) Pulse Ox O2 Delivery O2 Flow Rate FiO2 10/01/17 12:07 97.4 64 16 156/89 (111) 100 10/01/17 08:07 98.3 66 17 138/86 (103) 99 10/01/17 04:00 98.2 75 18 121/72 (88) 99 10/01/17 00:00 99.1 71 18 148/85 (106) 99 10/01/17 00:00 Room Air 09/30/17 20:00 Room Air 09/30/17 20:00 98.8 71 18 172/88 (116) 100 09/30/17 16:00 98.3 62 16 138/75 (96) 98 Laboratory Tests Test 10/01/17 05:00 White Blood Count 6.1 TH/MM3 Red Blood Count 3.88 MIL/MM3 Hemoglobin 10.8 GM/DL Hematocrit 32.9 % Mean Corpuscular Volume 84.8 FL Mean Corpuscular Hemoglobin 27.8 PG Mean Corpuscular Hemoglobin Concent 32.8 % Red Cell Distribution Width 15.3 % Platelet Count 92 TH/MM3 Mean Platelet Volume 9.0 FL Laboratory Tests Test 10/01/17 05:00 Blood Urea Nitrogen 13 MG/DL Creatinine 0.79 MG/DL Random Glucose 135 MG/DL Total Protein 7.2 GM/DL Albumin 2.6 GM/DL Calcium Level 8.1 MG/DL Alkaline Phosphatase 204 U/L Aspartate Amino Transf (AST/SGOT) 116 U/L Alanine Aminotransferase (ALT/SGPT) 141 U/L Total Bilirubin 0.5 MG/DL Direct Bilirubin 0.2 MG/DL Sodium Level 137 MEQ/L Potassium Level 4.0 MEQ/L Chloride Level 103 MEQ/L Carbon Dioxide Level 27.3 MEQ/L Anion Gap 7 MEQ/L Estimat Glomerular Filtration Rate 98 ML/MIN Indirect Bilirubin 0.3 MG/DL Microbiology Date/Time Source Procedure Growth Status 09/22/17 16:48 Blood Other Aerobic Blood Culture - Preliminary NO GROWTH IN 2 DAYS Resulted 09/22/17 16:48 Blood Other Anaerobic Blood Culture - Preliminary NO GROWTH IN 2 DAYS Resulted 09/22/17 14:02 Blood Other Aerobic Blood Culture - Preliminary NO GROWTH IN 2 DAYS Resulted 09/22/17 14:02 Blood Other Anaerobic Blood Culture - Preliminary NO GROWTH IN 2 DAYS Resulted 09/22/17 14:02 Blood Other Blood Fungal Culture Pending Resulted 09/22/17 14:02 Blood Other Blood Fungal Culture Pending Resulted 09/22/17 16:00 Wound Back Acid Fast Stain - Final NO ACID FAST BACILLI SEEN Resulted 09/22/17 16:00 Wound Back Mycobacterial Culture Pending Resulted 09/22/17 16:00 Wound Back Gram Stain - Final Resulted 09/22/17 16:00 Wound Back Wound Culture - Preliminary NO GROWTH IN 48 HOURS. Resulted Imaging: Bone Scan Nuclear Medicine 09/29/17 0000 Signed Impressions: Service Date/Time: Friday, September 29, 2017 08:23 - CONCLUSION: 1. Extensive uptake in the L1 and L2 vertebral bodies with cortical destruction noted on the CT data set. Overall uptake on the bone scan is nonspecific. Gallium imaging is pending for correlation. Natalio Way MD Liver Ultrasound 09/23/17 0000 Signed Impressions: Service Date/Time: Saturday, September 23, 2017 16:20 - CONCLUSION: 1. There is enlarged liver and spleen with liver measuring up to 20 cm in length and spleen up to 17.9 cm in length. 2. Previous cholecystectomy without biliary ductal dilatation. No free fluid. Theodore Mckay MD Needle Biopsy/Aspiration X-Ray 09/22/17 1445 Signed Impressions: Service Date/Time: Friday, September 22, 2017 16:02 - CONCLUSION: Uncomplicated needle biopsy of the L1-2 disc as above. Stanton Beaulieu MD Lumbar Spine X-Ray 09/22/17 1122 Signed Impressions: Service Date/Time: Friday, September 22, 2017 12:14 - CONCLUSION: 1. Findings characteristic of discitis at L1-2. 2. Degenerative changes involving the lumbar spine. Ken Barnes MD Thoracic Spine MRI 09/20/17 0000 Signed Impressions: Service Date/Time: Wednesday, September 20, 2017 22:06 - CONCLUSION: Severe findings in the lumbar spine. See that report for further details. small disc protrusions at multiple levels in the thoracic spine, none producing significant anatomic compromise. Vishal Osorio MD Lumbar Spine MRI 09/20/17 0000 Signed Impressions: Service Date/Time: Wednesday, September 20, 2017 22:06 - CONCLUSION: Pathologic process centered at the L1-2 disc space level with compromise of the adjacent vertebrae felt most probably related to discitis and osteomyelitis. See above discussion. Vishal Osorio MD Liver Ultrasound 09/23/17 0000 Signed Impressions: Service Date/Time: Saturday, September 23, 2017 16:20 - CONCLUSION: 1. There is enlarged liver and spleen with liver measuring up to 20 cm in length and spleen up to 17.9 cm in length. 2. Previous cholecystectomy without biliary ductal dilatation. No free fluid. Theodore Mckay MD Needle Biopsy/Aspiration X-Ray 09/22/17 1445 Signed Impressions: Service Date/Time: Friday, September 22, 2017 16:02 - CONCLUSION: Uncomplicated needle biopsy of the L1-2 disc as above. Stanton Beaulieu MD Lumbar Spine X-Ray 09/22/17 1122 Signed Impressions: Service Date/Time: Friday, September 22, 2017 12:14 - CONCLUSION: 1. Findings characteristic of discitis at L1-2. 2. Degenerative changes involving the lumbar spine. Ken Barnes MD Thoracic Spine MRI 09/20/17 0000 Signed Impressions: Service Date/Time: Wednesday, September 20, 2017 22:06 - CONCLUSION: Severe findings in the lumbar spine. See that report for further details. small disc protrusions at multiple levels in the thoracic spine, none producing significant anatomic compromise. Vishal Osorio MD Lumbar Spine MRI 09/20/17 0000 Signed Impressions: Service Date/Time: Wednesday, September 20, 2017 22:06 - CONCLUSION: Pathologic process centered at the L1-2 disc space level with compromise of the adjacent vertebrae felt most probably related to discitis and osteomyelitis. See above discussion. Vishal Osorio MD PHYSICAL EXAMINATION: GENERAL: No acute distress. Awake and alert. HEENT: Extraocular movements grossly intact. Pupils reactive to light. No icterus. Oropharynx: Moist mucosa. No lesions. NECK: Supple without adenopathy or swelling. LUNGS: Clear. HEART: Regular S1 and S2, without murmurs, rubs or gallops. BACK: No tenderness on palpation. ABDOMEN: Bowel sounds present, soft, nontender. EXTREMITIES: No clubbing, cyanosis or edema. SKIN: No rash. NEUROLOGIC: No gross focal finding. PSYCHIATRIC: Pleasant, calm and cooperative. Patient tearful and sad over his brother . IMPRESSION: 1. Abnormality of lumbar spine on MRI. However gallium bone scan shows no evidence of active infection. This can suggest treated infection of the lumbar spine. Culture of disc aspirate is negative. No fever 2. History of lumbar spine epidural abscess due to MSSA treated a few months ago. 3. Elevated liver function tests. History of hepatitis C and B. Because of absence of evidence of infection. I think we can safely discontinue antibiotics at this point. Patient can be discharged and follow-up with his primary care physician with physical therapy. Discussed with Dr. Valles. Florentino Burnette MD October 01, 2017 15:57
[2017-10-01 16:07] VITALS: BP 142/86; PULSE 68; RESP 18; TEMP 98.1; O2SAT 100
[2017-10-01] MEDS ORDERED: TENO300 PO (17:08)
--- NOTE | 2017-10-01 17:08 | HHI.DS ---
Discharge Summary Admission Date September 20, 2017 at 23:45 Discharge Date: October 02, 2017 Admitting Diagnosis OSTEOMYELITIS/DISCITIS (1) Osteomyelitis ICD Code: M86.9 - Osteomyelitis, unspecified (2) Weakness ICD Code: R53.1 - Weakness (3) Leukocytosis ICD Code: D72.829 - Elevated white blood cell count, unspecified (4) DM (diabetes mellitus) ICD Code: E11.9 - Type 2 diabetes mellitus without complications Procedures none Brief History - From Admission This is a 67-year-old male with a PMH of Hepatitis C, HTN, DM, COPD, Cirrhosis, h/o Esophageal Varices, h/o Ischemic Colitis s/p Bowel Resection, L-Spine Epidural Abscess s/p Laminectomy and h/o L-Spine Osteomyelitis/Discitis who presented to the ER w/ complaints of back pain in addition to lower extremity weakness. States he had imaging done at [facility] yesterday for same complaints, was told that the imaging was "very abnormal" and was told to come to [place] since he had previous treatment here. States he ambulates w/ a cane , however now w/ increased weakness to LLE. No incontinence reported. On arrival, BP 194/98, HR 118, O2 sat 100% RA, Afebrile. WBC 11.1. Chemistry essentially unremarkable except for GFR 61, K+ 3.2. L-spine MRI with pathologic process centered at L1-L2 disc space with compromise of adjacent vertebra most probably related to discitis and osteomyelitis. S/p Vanc/ Cefepime in ER. CBC/BMP: 10/01/17 0500 10/01/17 0500 Significant Findings Laboratory Tests Test 09/29/17 04:45 10/01/17 05:00 Red Blood Count 4.14 MIL/MM3 (4.50-5.90) 3.88 MIL/MM3 (4.50-5.90) Hemoglobin 11.6 GM/DL (13.0-17.0) 10.8 GM/DL (13.0-17.0) Hematocrit 35.0 % (39.0-51.0) 32.9 % (39.0-51.0) Platelet Count 95 TH/MM3 (150-450) 92 TH/MM3 (150-450) Random Glucose 116 MG/DL (74-106) 135 MG/DL (74-106) Calcium Level 7.9 MG/DL (8.5-10.1) 8.1 MG/DL (8.5-10.1) Albumin 2.6 GM/DL (3.4-5.0) Alkaline Phosphatase 204 U/L (45-117) Aspartate Amino Transf (AST/SGOT) 116 U/L (15-37) Alanine Aminotransferase (ALT/SGPT) 141 U/L (12-78) Imaging Last Impressions Gallium Scan Nuclear Medicine 09/29/17 0000 Signed Impressions: Service Date/Time: Sunday, October 01, 2017 10:05 - CONCLUSION: 1. The gallium to bone ratio is less than one as such, the exam would suggest the uptake is due to the severe degenerative changes rather than osteomyelitis.. Natalio Way MD Bone Scan Nuclear Medicine 09/29/17 0000 Signed Impressions: Service Date/Time: Friday, September 29, 2017 08:23 - CONCLUSION: 1. Extensive uptake in the L1 and L2 vertebral bodies with cortical destruction noted on the CT data set. Overall uptake on the bone scan is nonspecific. Gallium imaging is pending for correlation. Natalio Way MD Liver Ultrasound 09/23/17 0000 Signed Impressions: Service Date/Time: Saturday, September 23, 2017 16:20 - CONCLUSION: 1. There is enlarged liver and spleen with liver measuring up to 20 cm in length and spleen up to 17.9 cm in length. 2. Previous cholecystectomy without biliary ductal dilatation. No free fluid. Theodore Mckay MD Needle Biopsy/Aspiration X-Ray 09/22/17 1445 Signed Impressions: Service Date/Time: Friday, September 22, 2017 16:02 - CONCLUSION: Uncomplicated needle biopsy of the L1-2 disc as above. Stanton Beaulieu MD Lumbar Spine X-Ray 09/22/17 1122 Signed Impressions: Service Date/Time: Friday, September 22, 2017 12:14 - CONCLUSION: 1. Findings characteristic of discitis at L1-2. 2. Degenerative changes involving the lumbar spine. Ken Barnes MD Thoracic Spine MRI 09/20/17 0000 Signed Impressions: Service Date/Time: Wednesday, September 20, 2017 22:06 - CONCLUSION: Severe findings in the lumbar spine. See that report for further details. small disc protrusions at multiple levels in the thoracic spine, none producing significant anatomic compromise. Vishal Osorio MD Lumbar Spine MRI 09/20/17 0000 Signed Impressions: Service Date/Time: Wednesday, September 20, 2017 22:06 - CONCLUSION: Pathologic process centered at the L1-2 disc space level with compromise of the adjacent vertebrae felt most probably related to discitis and osteomyelitis. See above discussion. Vishal Osorio MD PE at Discharge GENERAL: This is a well-nourished, well-developed patient, in no apparent distress. CARDIOVASCULAR: Regular rate and rhythm without murmurs, gallops, or rubs. RESPIRATORY: Clear to auscultation. Breath sounds equal bilaterally. No wheezes , rales, or rhonchi. GASTROINTESTINAL: Abdomen soft, non-tender, nondistended. Normal active bowel sounds MUSCULOSKELETAL: Extremities without clubbing, cyanosis, or edema. Complaint of tenderness to palpation of the lumbar area. NEURO: Alert & Oriented x4 to person, place, time, situation. Moves all ext x4 Pt update on day of discharge no events overnight. Stable Hospital Course 67 Y/O male with: Osteomyelitis: h/o L-Spine Epidural Abscess, s/p Lumbar Laminectomy by Dr. Fitzgerald 03/25/17, c/o back pain, seen at [facility] and had "abnormal CT", instructed to come to [place] for evaluation. MRI L-Spine w/ pathologic process centered at L1-L2 disc space with compromise of adjacent vertebra likely due to osteomyelitis/discitis.. -Neurosurgery and ID following. So far the cultures are negative. -Interventional radiology evaluated and recommended a bone and gallium scan first to better assess the area since prior biopsies have been negative. -Bone scan noted above showing extensive uptake in the L1 and L2 vertebral bodies with cortical destruction noted on the CT. gallium scan 10/01 on Friday to correlate. Further plans based on the results. - continue IV antibiotics per ID Weakness: ambulates w/ cane at baseline, reports worsening lower extremity weakness on presentation, continue physical therapy. Elevated LFT, with history of hepatitis B HBe positive in March 2017, Hep c pos. Had Partial treatment but didn't continue. - GI following. Status post EGD which showed esophagitis, duodenitis, esophageal stricture status post dilation. Recommendation for PPI. DM2: Sliding scale w/ Accu-Cheks. DVT Prophylaxis: SCD/Teds Discharge Planning S/p Gallium scan 10/01, findings reviewed with infectious disease specialist Dr. Burnette. Discontinue antibiotics. Patient remained stable. Cleared for DC . To follow up as OP with PCP and consultants. Pt Condition on Discharge: Stable Discharge Disposition: Disch w/ Home Health Serv Discharge Time: > 30 minutes Discharge Instructions DIET: Follow Instructions for: Heart Healthy Diet, Diabetic Diet Activities you can perform: Regular-No Restrictions Follow up Referrals: Appointment for Follow Up @ [facility] - 1 Week PCP Follow-up - 2-3 Days PCP Follow-up Continued Medications: Aspirin DR (Aspirin DR) 81 Mg Tabdr 81 MG PO DAILY for Blood Clot Prevention for 30 Days, TAB Baclofen (Baclofen) 10 Mg Tab 10 MG PO Q12HR for Muscle Spasm for 30 Days, #60 TAB Budesonide-Formoterol Inh (Symbicort Inh) 160-4.5 Mcg/Act Aero 1 PUFF INH Q12HR, #1 INHALER 6 Refills Commode 3-in-1 (Commode 3-in-1) 1 Mis Mis EA .ROUTE DIRECTED, #1 0 Refills Commode 3-in-1 (Commode 3-in-1) 1 Mis Mis EA .ROUTE DIRECTED, #[address] (Duloxetine ) 20 Mg Capdr 20 MG PO DAILY, #30 CAP 0 Refills Famotidine (Famotidine) 20 Mg Tab 20 MG PO BID for Heartburn Management, #90 TAB 3 Refills Ferrous Sulfate (Ferosul) 325 Mg (65 Mg Iron) Tablet 325 MG PO BID@12,17 for Nutritional Supplement, #90 3 Refills Gabapentin (Neurontin) 300 Mg Cap 300 MG PO Q8HR for Pain, #90 CAP 6 Refills Hydromorphone (Dilaudid) 4 Mg Tab 4 MG PO Q6HR PRN for PAIN GREATER THAN 6, #60 TAB 0 Refills Insulin Aspart Protam-Asp 70-30 Inj (Novolog Mix 70-30 FlexPen Inj) 300 Unit/3 Ml Pen 1 UNITS SQ sliding scale for Blood Sugar Management, #1 PEN 3 Refills Insulin Detemir Inj (Levemir Inj) 1,000 unit/ 10 ML Vial 8 UNITS SQ BID for 30 Days, #10 INJECTION Do not mix with any other Insulin. Lidocaine (Lidoderm) 5 % Adh..patch 1 PATCH T-DERMAL DAILY for 30 Days Metoprolol Tartrate (Metoprolol Tartrate) 100 Mg Tab 100 MG PO DAILY, #90 TAB 3 Refills Morphine IR (Morphine IR) 15 Mg Tab 15 MG PO BID PRN for BREAKTHROUGH PAIN, #30 TAB 0 Refills Tamsulosin (Flomax) 0.4 Mg Cap 0.4 MG PO HS, #90 CAP 3 Refills Tenofovir disoproxil fumarate (Viread) 300 Mg Tab 300 MG PO DAILY for hep c for 30 Days, TAB 1 Refill (This prescription has been renewed) Walker Rolling/GetGo (Walker Rolling/GetGo) 1 Mis Mis EA .ROUTE DIRECTED, #1 Wheelchair (Wheelchair) 1 Mis Mis EA .ROUTE DIRECTED, #1 0 Refills Wheelchair (Wheelchair) 1 Mis Mis EA .ROUTE DIRECTED, #1 0 Refills [Budeson-Formot 160-4.5 Mg Inh] () 60 PUFF AERO 1 PUFF INH Q12HR for 30 Days [Budeson-Formot 160-4.5 Mcg Inh] () 60 PUFF AERO 1 PUFF INH Q12HR for Asthma Management for 30 Days [Megestrol Liq] () 400 MG/10 ML SUSP 400 MG PO DAILY for 30 Days Addis Valles MD October 01, 2017 17:08
--- NOTE | 2017-10-01 17:09 | HHI.FF ---
Face to Face Verification Diagnosis: (1) Depression (2) Leukocytosis (3) Weakness (4) Osteomyelitis (5) DM (diabetes mellitus) (6) Constipation (7) Hepatitis B (8) Bilateral leg edema (9) Discitis of lumbar region (10) Diabetes mellitus (11) Liver cirrhosis (12) Hepatitis B (13) Osteomyelitis of vertebra of lumbosacral region (14) Impaired mobility and activities of daily living (15) Stage II pressure ulcer of sacral region (16) Insulin dependent diabetes mellitus (17) History of rheumatoid arthritis (18) COPD (chronic obstructive pulmonary disease) Physical Therapy Order: Evaluate and Treat Home Health Nursing Order: Medical education Signs/symptoms of disease process Diabetic education Medication education-adverse effect Nursing assessment with vital signs I have seen patient Tariq Parks on 10/01/17. My clinical findings support the need for the requested home health care services because: Ltd mobility - disease progression Patient has SOB I certify that my clinical findings support that this patient is homebound because: Post-op weakness Addis Valles MD October 01, 2017 17:09
[2017-10-01 19:55] VITALS: BP 130/62; PULSE 63; RESP 21; TEMP 98.1; O2SAT 97
[2017-10-01] MEDS: TAMSULOSIN HCL 0.4 MG CAP PO SCH (22:02)
[2017-10-02] VITALS: BP 151/61; PULSE 77; RESP 20; TEMP 98.1; O2SAT 97
[2017-10-02] MEDS: HYDROmorphone HCL 4 MG TAB PO PRN ×2 (02:49→06:32)
[2017-10-02 04:00] VITALS: BP 154/73; PULSE 64; RESP 20; TEMP 98.4; O2SAT 97
[2017-10-02] MEDS: GABAPENTIN 300 MG CAP PO SCH (06:31)
[2017-10-02] MEDS: MORPHINE SULFATE 15 MG CONTROLLED RELEASE TAB PO SCH (06:32)
--- NOTE | 2017-10-02 07:59 | HHI.PR ---
Objective Vitals Vital Signs Date Time Temp Pulse Resp B/P (MAP) Pulse Ox O2 Delivery O2 Flow Rate FiO2 10/02/17 04:00 98.4 64 20 154/73 (100) 97 10/02/17 00:00 98.1 77 20 151/61 (91) 97 10/01/17 20:00 Room Air 10/01/17 19:55 98.1 63 21 130/62 (84) 97 10/01/17 16:07 98.1 68 18 142/86 (104) 100 10/01/17 12:07 97.4 64 16 156/89 (111) 100 10/01/17 08:07 98.3 66 17 138/86 (103) 99 I/O 10/01/17 10/01/17 10/01/17 10/02/17 10/02/17 10/02/17 07:00 15:00 23:00 07:00 15:00 23:00 Intake Total 120 ml 250 ml 670 ml Output Total 1200 ml Balance 120 ml 250 ml -530 ml Intake Oral 120 ml 420 ml IV Total 250 ml 250 ml Output Urine Total 1200 ml # Voids 2 # Bowel Movements 2 1 Result Diagram: 10/01/17 0500 10/01/17 0500 Objective Remarks GENERAL: This is a well-nourished, well-developed patient, in no apparent distress. CARDIOVASCULAR: Regular rate and rhythm without murmurs, gallops, or rubs. RESPIRATORY: Clear to auscultation. Breath sounds equal bilaterally. No wheezes , rales, or rhonchi. GASTROINTESTINAL: Abdomen soft, non-tender, nondistended. Normal active bowel sounds MUSCULOSKELETAL: Extremities without clubbing, cyanosis, or edema. Complaint of tenderness to palpation of the lumbar area. NEURO: Alert & Oriented x4 to person, place, time, situation. Moves all ext x4 A/P Problem List: (1) Osteomyelitis ICD Code: M86.9 - Osteomyelitis, unspecified (2) Weakness ICD Code: R53.1 - Weakness (3) Leukocytosis ICD Code: D72.829 - Elevated white blood cell count, unspecified (4) DM (diabetes mellitus) ICD Code: E11.9 - Type 2 diabetes mellitus without complications Assessment and Plan 67 Y/O male with: Osteomyelitis: h/o L-Spine Epidural Abscess, s/p Lumbar Laminectomy by Dr. Fitzgerald 03/25/17, c/o back pain, seen at [facility] and had "abnormal CT", instructed to come to [place] for evaluation. MRI L-Spine w/ pathologic process centered at L1-L2 disc space with compromise of adjacent vertebra likely due to osteomyelitis/discitis.. -Neurosurgery and ID following. So far the cultures are negative. -Interventional radiology evaluated and recommended a bone and gallium scan first to better assess the area since prior biopsies have been negative. -Bone scan noted above showing extensive uptake in the L1 and L2 vertebral bodies with cortical destruction noted on the CT. gallium scan 10/01 on Friday to correlate. Further plans based on the results. - continue IV antibiotics per ID Weakness: ambulates w/ cane at baseline, reports worsening lower extremity weakness on presentation, continue physical therapy. Elevated LFT, with history of hepatitis B HBe positive in March 2017, Hep c pos. Had Partial treatment but didn't continue. - GI following. Status post EGD which showed esophagitis, duodenitis, esophageal stricture status post dilation. Recommendation for PPI. DM2: Sliding scale w/ Accu-Cheks. DVT Prophylaxis: SCD/Teds Discharge Planning S/p Gallium scan 10/01, findings reviewed with infectious disease specialist Dr. Burnette. Plan to discontinue antibiotics. Monitor patient overnight. Patient can be discharged tomorrow morning if stable. Addis Valles MD October 02, 2017 07:59
[2017-10-02] MEDS: DULoxetine HCl DR 20 MG CAP PO SCH (08:29)
[2017-10-02] MEDS: BACLOFEN 10 MG TAB PO SCH (08:29)
[2017-10-02] MEDS: ASPIRIN EC 81 MG TABEC PO SCH (08:29)
[2017-10-02] MEDS: PANTOPRAZOLE SOD 40 MG DELAYED RELEASE TAB PO SCH (08:29)
[2017-10-02] MEDS: INSULIN ASPART SUPPLEMENTAL SCALE SQ SCH (08:30)
[2017-10-02] MEDS: INSULIN DETEMIR 100 UNITS/ML VIAL SQ SCH ×2 (08:30→08:45)
[2017-10-02] MEDS: BUDESONIDE-FORMOTEROL 160/4.5 MCG INHALER INH SCH (08:30)
[2017-10-02] MEDS: TENOFOVIR DISOPROXIL FUMARATE 300 MG TAB PO SCH (08:31)
[2017-10-02] MEDS: DOCUSATE SODIUM 50 MG/SENNA 8.6 MG TAB PO SCH (08:33)
[2017-10-02] MEDS: METOPROLOL TARTRATE 100 MG TAB PO SCH (08:33)
[2017-10-02] MEDS: SODIUM CHLORIDE 0.9% FLUSH 10 ML FLUSH IV FLUSH SCH (08:34)
[2017-10-02 23:51] LABS: HEP B DNA R1 74000 IU/mL (Not Detected); HEP B DNA R2 4.87 (Not Detected)
== END 2017-10-02 09:33 | disposition home health service (06) | DRG 552 ==
LOC: NEPD 20:01 → NEDA 23:45 → N04A 09-21 00:45
PROVIDERS: ADMIT Hospitalist; ATTEND Hospitalist
PROC: 0S923ZX Drainage of Lumbar Vertebral Disc, Percutaneous Approach, Diagnostic (ICD-10-PCS; principal; 2017-09-22)
PROC: 0D738ZZ Dilation of Lower Esophagus, Via Natural or Artificial Opening Endoscopic (ICD-10-PCS; 2017-10-02)
PROC: 0DB98ZX Excision of Duodenum, Via Natural or Artificial Opening Endoscopic, Diagnostic (ICD-10-PCS; 2017-10-02)
PROC: 0DB68ZX Excision of Stomach, Via Natural or Artificial Opening Endoscopic, Diagnostic (ICD-10-PCS; 2017-10-02)
PROC: 0DB38ZX Excision of Lower Esophagus, Via Natural or Artificial Opening Endoscopic, Diagnostic (ICD-10-PCS; 2017-10-02)
DX: M46.46 Discitis, unspecified, lumbar region (principal); E11.69 Type 2 diabetes mellitus with other specified complication; M46.26 Osteomyelitis of vertebra, lumbar region; B19.10 Unspecified viral hepatitis B without hepatic coma; K74.60 Unspecified cirrhosis of liver; K22.2 Esophageal obstruction; Z79.4 Long term (current) use of insulin; J44.9 Chronic obstructive pulmonary disease, unspecified; I10 Essential (primary) hypertension; F12.90 Cannabis use, unspecified, uncomplicated; F17.210 Nicotine dependence, cigarettes, uncomplicated; B19.20 Unspecified viral hepatitis C without hepatic coma; K44.9 Diaphragmatic hernia without obstruction or gangrene; K20.9 Esophagitis, unspecified; D64.9 Anemia, unspecified; Z79.82 Long term (current) use of aspirin; Z85.51 Personal history of malignant neoplasm of bladder
CPT/HCPCS: 62267; 72100; 72157; 72158; 76705; 77002; 78320; 78399; 78807; 78999; 80048; 80053; 80074; 80076; 82948; 85025; 85027; 85610; 85652; 85730; 86140; 87015; 87040; 87070; 87103; 87116; 87176; 87205; 87206; 87517; 87522; 87902; 88305; 88312; 96374; 96375; 99152; A9503; A9556; A9579; C1769; J0692; J0696; J1170; J1815; J2060; J2270; J2405; J3010; J3370; J7030; J7050; L0484

== ENCOUNTER 2017-10-10 00:57 | Emergency (ER) | payer MEDICARE, MEDICAID ==
[~2017-10-10] VITALS: Ht 185.4 cm; Wt 72.5 kg
[2017-10-10 01:16] VITALS: BP 171/100; PULSE 82; RESP 17; TEMP 98.9; O2SAT 100
[2017-10-10] MEDS ORDERED: DIAZ5 PO (11:59)
[2017-10-10] MEDS ORDERED: ZOFR4TAB3 SL (12:54)
== END 2017-10-10 03:40 | disposition left against medical advice (07) ==
LOC: NED 00:57
DX: M54.9 Dorsalgia, unspecified (principal)
CPT/HCPCS: 99281

== ENCOUNTER 2017-10-10 08:18 | Emergency (ER) | payer MEDICARE, MEDICAID ==
[~2017-10-10] VITALS: Ht 185.4 cm; Wt 75.0 kg
[2017-10-10 08:20] VITALS: BP 181/91; PULSE 78; RESP 20; TEMP 98.5; O2SAT 100
[2017-10-10] MEDS ORDERED: ONDANSETRON ODT 4 MG TAB PO ONE ×2 (11:00→13:00)
[2017-10-10] MEDS ORDERED: DIAZEPAM 10 MG TAB PO ONE (11:00)
[2017-10-10] MEDS ORDERED: KETOROLAC TROMETHAMINE 60 MG/2 ML (IM) VIAL IM ONE (11:00)
[2017-10-10] MEDS ORDERED: DIAZ5 PO (11:59)
--- NOTE | 2017-10-10 11:59 | PD ---
HPI Chief Complaint: Pain: Acute or Chronic Time Seen by Provider: 10:39 Travel History International Travel<30 days: No Contact w/Intl Traveler<30days: No Traveled to known affect area: No History of Present Illness HPI Patient is a 67-year-old male who comes in complaining of back pain. Is a long history of chronic back pain. He has had osteomyelitis had an abscess in the past. He was recently admitted, he had several testing that showed no evidence of infection. He was seen by infectious disease and the decision was made to hold any antibiotics. He says his pain today is the same as it has been. He says he was not given any pain medicine to go home with. He has numbness in his legs, but he says that this is a chronic issue. He says that nothing is new today, he just has no way to control the pain. He denies any injury. He denies fever chills. Severity is mild. PFSH Past Medical History Arthritis: Yes (RA) Blood Disorders: Yes (VARICES,BANDING IN PAST WITH ERCP) Anxiety: No Depression: No Cancer: Yes (Bladder Cancer) Cardiac Catheterization: Yes Cardiovascular Problems: Yes (HTN) High Cholesterol: Yes Chemotherapy: No Chest Pain: No Congestive Heart Failure: No Cirrhosis: Yes (END STAGE LIVER DISEASE) COPD: Yes Diabetes: Yes Patient Takes Glucophage: No Deep Vein Thrombosis: Yes Endocrine: Yes Gastrointestinal Disorders: Yes GERD: Yes Genitourinary: Yes Hepatitis: Yes (C) Hiatal Hernia: No Hypertension: Yes Immune Disorder: No Implanted Vascular Access Dvce: Yes Kidney Stones: No Musculoskeletal: Yes Neurologic: Yes Psychiatric: No Reproductive: No Respiratory: Yes Immunizations Current: Yes Pancreatitis: Yes Radiation Therapy: No Renal Failure: No Seizures: No Sickle Cell Disease: No Sleep Apnea: No Thyroid Disease: No Ulcer: No Past Surgical History Abdominal Surgery: Yes (spleen reconstruction, bowel and colon resection, ERCP BANDING) AICD: No Appendectomy: Yes Arteriovenous Shunt: No Body Medical Devices: METAL BAR IN LEFT HAND Cardiac Surgery: No Cholecystectomy: Yes Ear Surgery: No Endocrine Surgery: No Eye Surgery: No Genitourinary Surgery: Yes (Bladder cancer) Gynecologic Surgery: No Insulin Pump: No Joint Replacement: Yes Neurologic Surgery: Yes (BACK SURGERY X 2) Oral Surgery: Yes Pacemaker: No Thoracic Surgery: No Tympanostomy Tube: Yes Other Surgery: Yes (ercp banding, BOWEL RESECTION/ISCHEMIC BOWEL) Social History Alcohol Use: No Tobacco Use: Yes (5 cigs) Substance Use: Yes (Marijuana) Allergies-Medications (Allergen,Severity, Reaction): Coded Allergies: Iodinated Contrast- Oral and IV Dye (Unverified Allergy, Severe, rash/ flush, 06/04/17) butorphanol (Unverified Allergy, Severe, rash, 06/04/17) codeine (Unverified Allergy, Severe, breathing probs, 06/04/17) pentazocine (Unverified Allergy, Severe, breathing probs, 06/04/17) Reported Meds & Prescriptions Reported Meds & Active Scripts Active Valium (Diazepam) 5 Mg Tab 5 Mg PO TID PRN Viread (Tenofovir Disoproxil Fumarate) 300 Mg Tab 300 Mg PO DAILY [address] (Duloxetine HCl) 20 Mg Capdr 20 Mg PO DAILY Novolog Mix 70-30 FlexPen Inj (Insulin Aspart Protam-Asp 70-30 Inj) 300 Unit/3 Ml Pen 1 Units SQ SLIDING SCALE Dilaudid (Hydromorphone HCl) 4 Mg Tab 4 Mg PO Q6HR PRN Morphine IR (Morphine Sulfate) 15 Mg Tab 15 Mg PO BID PRN Metoprolol Tartrate 100 Mg Tab 100 Mg PO DAILY Famotidine 20 Mg Tab 20 Mg PO BID Neurontin (Gabapentin) 300 Mg Cap 300 Mg PO Q8HR Ferosul (Ferrous Sulfate) 325 Mg (65 Mg Iron) Tablet 325 Mg PO BID@12,17 Baclofen 10 Mg Tab 10 Mg PO Q12HR 30 Days Flomax (Tamsulosin HCl) 0.4 Mg Cap 0.4 Mg PO HS Levemir Inj (Insulin Detemir) 1,000 unit/ 10 ML Vial 8 Units SQ BID 30 Days Do not mix with any other Insulin. Symbicort Inh (Budesonide/Formoterol Fumarate) 160-4.5 Mcg/Act Aero 1 Puff INH Q12HR [Megestrol Liq] 400 MG/10 ML Susp 400 Mg PO DAILY 30 Days [Budeson-Formot 160-4.5 Mcg Inh] 60 PUFF Aero 1 Puff INH Q12HR [address] (Aspirin) 81 Mg Tabdr 81 Mg PO DAILY 30 Days Commode 3-in-1 (Device) 1 Mis Mis Ea .ROUTE DIRECTED Wheelchair (Device) 1 Mis Mis Ea .ROUTE DIRECTED Lidoderm (Lidocaine) 5 % Adh..patch 1 Patch T-DERMAL DAILY 30 Days [Budeson-Formot 160-4.5 Mg Inh] 60 PUFF Aero 1 Puff INH Q12HR 30 Days Wheelchair (Device) 1 Mis Mis Ea .ROUTE DIRECTED Commode 3-in-1 (Device) 1 Mis Mis Ea .ROUTE DIRECTED Walker Rolling/GetGo (Device) 1 Mis Mis Ea .ROUTE DIRECTED Review of Systems General / Constitutional: No: Fever, Chills HENT: No: Headaches, Lightheadedness Cardiovascular: No: Chest Pain or Discomfort Respiratory: No: Shortness of Breath Gastrointestinal: No: Nausea, Vomiting, Abdominal Pain Musculoskeletal: Positive: Pain Skin: No Rash, No Change in Pigmentation Neurologic: No: Weakness, Dizziness Physical Exam Narrative GENERAL: Awake and alert, no acute distress. SKIN: Focused skin assessment warm/dry. No wounds or signs of infection. HEAD: Atraumatic. Normocephalic. EYES: Pupils equal and round. No scleral icterus. ENT: Mucous membranes pink and moist. NECK: Trachea midline. No JVD. CARDIOVASCULAR: Regular rate and rhythm. No murmur appreciated. RESPIRATORY: No accessory muscle use. Clear to auscultation. Breath sounds equal bilaterally. MUSCULOSKELETAL: No obvious deformities. No clubbing. No cyanosis. No edema. No tenderness to palpation of the thoracic or lumbar spine. Tender to palpation of the right sacroiliac area. NEUROLOGICAL: Awake and alert. No obvious cranial nerve deficits. Motor grossly within normal limits. Normal speech. Data Data Last Documented VS Vital Signs Date Time Temp Pulse Resp B/P (MAP) Pulse Ox O2 Delivery O2 Flow Rate FiO2 10/10/17 08:20 98.5 78 20 181/91 (121) 100 Orders Orders Ketorolac Inj (Toradol Inj) (10/10/17 11:00) Diazepam (Valium) (10/10/17 11:00) Ondansetron Odt (Zofran Odt) (10/10/17 11:00) Ed Discharge Order (10/10/17 12:00) [facility] Medical Decision Making Medical Screen Exam Complete: Yes Emergency Medical Condition: Yes Medical Record Reviewed: Yes Differential Diagnosis Chronic back pain versus muscle strain versus sciatica Narrative Course Patient is a 67-year-old male who comes in complaining of chronic back pain. Exam shows tenderness to the right sacroiliac area. Patient given Toradol and Valium. He reports feeling better. He will be discharged with a prescription for pain medicine. Advised follow-up with his doctor. Advised return to the ED as needed for any worsening symptoms. Diagnosis Primary Impression: Chronic low back pain Qualified Codes: M54.41 - Lumbago with sciatica, right side; G89.29 - Other chronic pain Referrals: Paras Fitzgerald MD call for appointment Patient Instructions: Acute Low Back Pain (ED), General Instructions Additional Instructions: Follow-up with your doctors. You can take ibuprofen as needed for pain. You can take Valium for extreme back spasms. Be careful as this may make you drowsy. Return to the ED as needed for any worsening symptoms. Scripts Ondansetron Odt (Zofran Odt) 4 Mg Tab 4 MG SL Q6HR Y for Nausea/Vomiting, #12 TAB 0 Refills Prov: Ernestina Ambrose MD 10/10/17 Diazepam (Valium) 5 Mg Tab 5 MG PO TID Y for MUSCLE SPASM, #7 TAB 0 Refills Prov: Ernestina Ambrose MD 10/10/17 Disposition: 01 DISCHARGE HOME Condition: Stable Ernestina Ambrose MD October 10, 2017 11:59
[2017-10-10] MEDS ORDERED: ZOFR4TAB3 SL (12:54)
== END 2017-10-10 13:21 | disposition home or self-care (01) ==
LOC: NEPD 08:18
DX: M54.41 Lumbago with sciatica, right side (principal); G89.29 Other chronic pain; E11.9 Type 2 diabetes mellitus without complications; I10 Essential (primary) hypertension; F17.210 Nicotine dependence, cigarettes, uncomplicated; F12.90 Cannabis use, unspecified, uncomplicated; Z79.4 Long term (current) use of insulin; Z85.51 Personal history of malignant neoplasm of bladder
CPT/HCPCS: 96372; 99283; J1885

== ENCOUNTER 2017-11-03 05:19 | Observation (INO) | payer MEDICARE, MEDICAID ==
[~2017-11-03] VITALS: Ht 185.4 cm; Wt 69.0 kg
[2017-11-03] VITALS (11 sets, daily range): BP systolic 133–176; BP diastolic 64–84; PULSE 86–125; RESP 16–22; TEMP 97.8–99.1; O2SAT 95–100
[~2017-11-03 05:19] MED LIST changes: +DIAZ5 PO; +ZOFR4TAB3 SL
[2017-11-03] MEDS ORDERED: SODIUM CHLORID 0.9% 500 ML INJ 500 ML IV ONE (05:45)
[2017-11-03] MEDS ORDERED: methylPREDNISolone SOD SUCC 125 MG/2 ML VIAL IV PUSH ONE (05:45)
[2017-11-03] MEDS ORDERED: SODIUM CHLORIDE 0.9% FLUSH 10 ML FLUSH IVF PRN (05:45)
--- NOTE | 2017-11-03 05:57 | PD ---
HPI Chief Complaint: Edema Time Seen by Provider: 05:29 Travel History International Travel<30 days: No Contact w/Intl Traveler<30days: No Traveled to known affect area: No History of Present Illness HPI The patient is a 67 year old male who presents to the [facility] emergency department with a history of lower extremity edema that he reports began yesterday. He reports that he began to have shortness of breath today. He reports that he does have an occasional cough productive of yellow sputum. He reports that he has a history of COPD and uses a rescue inhaler. He reports that he tried using his rescue inhaler 2-3 times in the last 24 hours without improvement. He reports that he currently smokes 3 cigarettes/day. The patient additionally reports smoking marijuana. He denies having any chest pain , however he does report having chest tightness. He denies having any diaphoresis, nausea, vomiting, pain in his throat, or in his shoulders. On review of systems otherwise, the patient denies having any fevers, vomiting, diarrhea, urinary symptoms, or neurologic symptoms. The patient reports on review of systems having right upper quadrant pain. He reports this is chronic related to his history of hepatitis. The patient incidentally also reports on review of systems having sharp burning/shooting pains that go up bilateral lower extremities when he weight bears or walks. He reports that he has a history of neuropathy. He is currently on Dilaudid for pain through pain management. He is also on gabapentin. [facility] Past Medical History Narrative Medical The patient's past medical history is significant for hepatitis C, hepatitis B that failed treatment, hypertension, diabetes mellitus, COPD, cirrhosis, history of esophageal varices, history of ischemic colitis status post bowel resection, history of a lumbar spine epidural abscess status post laminectomy, history of L-spine osteomyelitis and discitis. Arthritis: Yes (RA) Blood Disorders: Yes (VARICES,BANDING IN PAST WITH ERCP) Anxiety: No Depression: No Cancer: Yes (Bladder Cancer) Cardiac Catheterization: Yes Cardiovascular Problems: Yes (HTN) High Cholesterol: Yes Chemotherapy: No Chest Pain: No Congestive Heart Failure: No Cirrhosis: Yes (END STAGE LIVER DISEASE) COPD: Yes Diabetes: Yes Patient Takes Glucophage: No Diminished Hearing: No Deep Vein Thrombosis: Yes Endocrine: Yes Gastrointestinal Disorders: Yes GERD: Yes Genitourinary: Yes Hepatitis: Yes (C) Hiatal Hernia: No Hypertension: Yes Immune Disorder: No Implanted Vascular Access Dvce: Yes Kidney Stones: No Musculoskeletal: Yes Neurologic: Yes Psychiatric: No Reproductive: No Respiratory: Yes Immunizations Current: Yes Pancreatitis: Yes Radiation Therapy: No Renal Failure: No Seizures: No Sickle Cell Disease: No Sleep Apnea: No Thyroid Disease: No Ulcer: No Past Surgical History Narrative Surgical The patient's past surgical history is significant for colon resection, appendectomy, left hand surgery, cholecystectomy, lumbar laminectomy, tympanostomy tube placement. Abdominal Surgery: Yes (spleen reconstruction, bowel and colon resection, ERCP BANDING) AICD: No Appendectomy: Yes Arteriovenous Shunt: No Body Medical Devices: METAL BAR IN LEFT HAND Cardiac Surgery: No Cholecystectomy: Yes Ear Surgery: No Endocrine Surgery: No Eye Surgery: No Genitourinary Surgery: Yes (Bladder cancer) Gynecologic Surgery: No Insulin Pump: No Joint Replacement: Yes Neurologic Surgery: Yes (BACK SURGERY X 2) Oral Surgery: Yes Pacemaker: No Thoracic Surgery: No Tympanostomy Tube: Yes Other Surgery: Yes (ercp banding, BOWEL RESECTION/ISCHEMIC BOWEL) Social History Alcohol Use: No Tobacco Use: Yes (3 cigs) Substance Use: Yes (Marijuana) Allergies-Medications (Allergen,Severity, Reaction): Coded Allergies: Iodinated Contrast- Oral and IV Dye (Unverified Allergy, Severe, rash/ flush, 11/03/17) butorphanol (Unverified Allergy, Severe, rash, 11/03/17) codeine (Unverified Allergy, Severe, breathing probs, 11/03/17) pentazocine (Unverified Allergy, Severe, breathing probs, 11/03/17) Reported Meds & Prescriptions Reported Meds & Active Scripts Active Zofran Odt (Ondansetron Odt) 4 Mg Tab 4 Mg SL Q6HR PRN Valium (Diazepam) 5 Mg Tab 5 Mg PO TID PRN Viread (Tenofovir Disoproxil Fumarate) 300 Mg Tab 300 Mg PO DAILY [address] (Duloxetine HCl) 20 Mg Capdr 20 Mg PO DAILY Novolog Mix 70-30 FlexPen Inj (Insulin Aspart Protam-Asp 70-30 Inj) 300 Unit/3 Ml Pen 1 Units SQ SLIDING SCALE Dilaudid (Hydromorphone HCl) 4 Mg Tab 4 Mg PO Q6HR PRN Morphine IR (Morphine Sulfate) 15 Mg Tab 15 Mg PO BID PRN Metoprolol Tartrate 100 Mg Tab 100 Mg PO DAILY Famotidine 20 Mg Tab 20 Mg PO BID Neurontin (Gabapentin) 300 Mg Cap 300 Mg PO Q8HR Ferosul (Ferrous Sulfate) 325 Mg (65 Mg Iron) Tablet 325 Mg PO BID@12,17 Baclofen 10 Mg Tab 10 Mg PO Q12HR 30 Days Flomax (Tamsulosin HCl) 0.4 Mg Cap 0.4 Mg PO HS Levemir Inj (Insulin Detemir) 1,000 unit/ 10 ML Vial 8 Units SQ BID 30 Days Do not mix with any other Insulin. Symbicort Inh (Budesonide/Formoterol Fumarate) 160-4.5 Mcg/Act Aero 1 Puff INH Q12HR [Megestrol Liq] 400 MG/10 ML Susp 400 Mg PO DAILY 30 Days [Budeson-Formot 160-4.5 Mcg Inh] 60 PUFF Aero 1 Puff INH Q12HR [address] (Aspirin) 81 Mg Tabdr 81 Mg PO DAILY 30 Days Commode 3-in-1 (Device) 1 Mis Mis Ea .ROUTE DIRECTED Wheelchair (Device) 1 Mis Mis Ea .ROUTE DIRECTED Lidoderm (Lidocaine) 5 % Adh..patch 1 Patch T-DERMAL DAILY 30 Days [Budeson-Formot 160-4.5 Mg Inh] 60 PUFF Aero 1 Puff INH Q12HR 30 Days Wheelchair (Device) 1 Mis Mis Ea .ROUTE DIRECTED Commode 3-in-1 (Device) 1 Mis Mis Ea .ROUTE DIRECTED Walker Rolling/GetGo (Device) 1 Mis Mis Ea .ROUTE DIRECTED Review of Systems Except as stated in HPI: all other systems reviewed are Neg General / Constitutional: No: Fever Eyes: No: Visual changes HENT: No: Headaches, Congestion Cardiovascular: Positive: Chest Pain or Discomfort, Dyspnea on exertion (Chest tight), Edema Respiratory: Positive: Cough, Shortness of Breath Gastrointestinal: Positive: Abdominal Pain, No: Nausea, Vomiting, Diarrhea Genitourinary: No: Urgency, Frequency, Dysuria Musculoskeletal: No: Pain Skin: No Rash Neurologic: No: Weakness, Focal Abnormalities, Change in Mentation, Slurred Speech, Sensory Disturbance Psychiatric: No: Depression Endocrine: No: Polydipsia Hematologic/Lymphatic: No: Easy Bruising Physical Exam Narrative General: The patient is a well-developed well-nourished male, uncomfortable appearing on arrival, intermittently making a gasping sound widely opening his mouth with an intake of air that sounds stridorous. The patient's O2 saturation on room air is 99-100%. Head and Neck exam: Head is normocephalic atraumatic. Eyes: EOMI, pupils are equal round and reactive to light. Nose: Midline septum with pink mucous membranes Mouth: Dentition unremarkable. Tacky mucus membranes. Posterior oropharynx is not erythematous. No tonsillar hypertrophy. Uvula midline. Airway patent. Neck: No palpable lymphadenopathy. No nuchal rigidity. No thyromegaly. Cardiovascular: Sinus tachycardia in the low 100s without murmurs, gallops, or rubs. No pulse deficit to the extremities on simultaneous auscultation and palpation of his radial artery. Lungs: Decreased breath sounds in the bases bilaterally, soft expiratory wheezes are audible worse on the right compared to the left. No rhonchi or crackles audible. No accessory muscle use. Abdomen: Soft, with tenderness on palpation of the right upper quadrant of the abdomen, no other tenderness on palpation of the other quadrants. No guarding, rebound, or rigidity. Normal bowel sounds are audible. No tenderness on palpation of McBurney's point. Extremities: No clubbing or cyanosis. 1+ pitting edema bilateral lower extremities. Varicose veins are noted. No palpable cords. 2+ pulses in all 4 extremities. Back: No spinous process tenderness to palpation. No costovertebral angle tenderness to palpation. Neurologic Exam: Grossly nonfocal. Skin Exam: No rash noted. Intact skin that is warm and dry. Data Data Last Documented VS Vital Signs Date Time Temp Pulse Resp B/P (MAP) Pulse Ox O2 Delivery O2 Flow Rate FiO2 11/03/17 06:05 95 20 135/81 (99) 98 Room Air 11/03/17 05:23 98.5 Orders Orders Electrocardiogram (11/03/17 05:43) Complete Blood Count With Diff (11/03/17 05:43) Comprehensive Metabolic Panel (11/03/17 05:43) Creatine Kinase (Cpk) (11/03/17 05:43) Ckmb (Isoenzyme) Profile (11/03/17 05:43) Troponin I (11/03/17 05:43) B-Type Natriuretic Peptide (11/03/17 05:43) Prothrombin Time / Inr (Pt) (11/03/17 05:43) Act Partial Throm Time (Ptt) (11/03/17 05:43) C-Reactive Protein (Crp) (11/03/17 05:43) Lipase (11/03/17 05:43) Urinalysis - C+S If Indicated (11/03/17 05:43) D-Dimer (11/03/17 05:43) Magnesium (Mg) (11/03/17 05:43) Chest, Single Ap (11/03/17 05:43) Iv Access Insert/Monitor (11/03/17 05:43) Ecg Monitoring (11/03/17 05:43) Oximetry (11/03/17 05:43) Us Leg Venous Doppler Bilat (11/03/17 ) Sodium Chloride 0.9% Flush (Ns Flush) (11/03/17 05:45) Methylprednisolone So Succ Inj (Solumedr (11/03/17 05:45) Albuterol-Ipratropium Neb (Duoneb Neb) (11/03/17 05:45) Sodium Chlorid 0.9% 500 Ml Inj (Ns 500 M (11/03/17 05:45) CKMB (11/03/17 05:52) CKMB% (11/03/17 05:52) Admit Order (Ed Use Only) (11/03/17 06:50) Place In Observation (11/03/17 ) Vital Signs (Adult) Q4H (11/03/17 06:50) Activity Oob With Assistance (11/03/17 06:50) Sole Cementer / Telemetry .CONTINUOUS (11/03/17 06:50) Diet Heart Healthy (11/03/17 Breakfast) Sodium Chloride 0.9% Flush (Ns Flush) (11/03/17 07:00) Sodium Chloride 0.9% Flush (Ns Flush) (11/03/17 09:00) Acetaminophen (Tylenol) (11/03/17 07:00) Basic Metabolic Panel (Bmp) (11/04/17 06:00) Complete Blood Count With Diff (11/04/17 06:00) Resp Oxygen Krishna C Titrat 1-4 L (11/03/17 ) Scd Bilateral/Knee High PADDY.BID (11/03/17 06:50) Naloxone Inj (Narcan Inj) (11/03/17 07:00) Docusate Sodium-Senna (Shaila-Colace) (11/03/17 09:00) Magnesium Hydroxide Liq (Milk Of Magnesi (11/03/17 07:00) Methylprednisolone So Succ Inj (Solumedr (11/03/17 14:00) Labs Laboratory Tests Test 11/03/17 05:52 White Blood Count 7.8 TH/MM3 Red Blood Count 3.45 MIL/MM3 Hemoglobin 10.2 GM/DL Hematocrit 29.2 % Mean Corpuscular Volume 84.8 FL Mean Corpuscular Hemoglobin 29.5 PG Mean Corpuscular Hemoglobin Concent 34.8 % Red Cell Distribution Width 16.3 % Platelet Count 103 TH/MM3 Mean Platelet Volume 8.3 FL Neutrophils (%) (Auto) 75.6 % Lymphocytes (%) (Auto) 14.2 % Monocytes (%) (Auto) 9.0 % Eosinophils (%) (Auto) 0.9 % Basophils (%) (Auto) 0.3 % Neutrophils # (Auto) 5.9 TH/MM3 Lymphocytes # (Auto) 1.1 TH/MM3 Monocytes # (Auto) 0.7 TH/MM3 Eosinophils # (Auto) 0.1 TH/MM3 Basophils # (Auto) 0.0 TH/MM3 CBC Comment DIFF FINAL Differential Comment Prothrombin Time 11.8 SEC Prothromb Time International Ratio 1.2 RATIO Activated Partial Thromboplast Time 29.3 SEC D-Dimer Quantitative (PE/DVT) 0.90 MG/L FEU Blood Urea Nitrogen 13 MG/DL Creatinine 0.76 MG/DL Random Glucose 278 MG/DL Total Protein 7.1 GM/DL Albumin 3.0 GM/DL Calcium Level 7.7 MG/DL Magnesium Level 1.4 MG/DL Alkaline Phosphatase 159 U/L Aspartate Amino Transf (AST/SGOT) 62 U/L Alanine Aminotransferase (ALT/SGPT) 73 U/L Total Bilirubin 0.8 MG/DL Sodium Level 137 MEQ/L Potassium Level 3.6 MEQ/L Chloride Level 107 MEQ/L Carbon Dioxide Level 20.2 MEQ/L Anion Gap 10 MEQ/L Estimat Glomerular Filtration Rate 103 ML/MIN Total Creatine Kinase 199 U/L Creatine Kinase MB 2.5 NG/ML Troponin I 0.05 NG/ML C-Reactive Protein 1.60 MG/DL B-Type Natriuretic Peptide 40 PG/ML Lipase 61 U/L MDM Medical Decision Making Medical Screen Exam Complete: Yes Emergency Medical Condition: Yes Medical Record Reviewed: Yes Differential Diagnosis COPD exacerbation, versus epiglottitis, versus congestive heart failure, versus pneumonia Narrative Course During the course of the patient's emergency department visit, the patient's history, examination, and differential diagnosis were reviewed with the patient. The patient was placed on a desk monitor with oximetry and frequent blood pressure monitoring. The patient had IV access obtained and blood work sent for analysis. An ultrasound of bilateral lower extremities has been ordered to evaluate for underlying DVT. The patient had an EKG done on arrival that shows a sinus rhythm heart rate of 96, QRS duration 111 ms, QTC 422 ms. The patient was initially provided Solu-Medrol 125 mg IV, duo nebs x3, normal saline 500 mL bolus x1. The patient's laboratory studies were reviewed and remarkable for a white count of 7.8, hemoglobin 10.2, platelets 103 with 75.6 neutrophils, CMP is remarkable for CO2 of 20.2, glucose 278, magnesium 1.4, magnesium was given 1 g IV over 1 hour. AST 62, alk phos 159, C-reactive protein 1.6, cardiac enzymes within normal limits, BNP 40, lipase 61. PT 11.8, PTT 29.3, d-dimer elevated at 0.9, VQ scan was ordered as the patient has an IV contrast allergy. Radiology studies were reviewed and remarkable for Last Impressions Chest X-Ray 11/03/17 0566 Signed Impressions: CONCLUSION: Healed left-sided rib fractures. Lungs are clear. The patient's results were discussed with the patient, including the plan of care. I explained that further testing and/ or monitoring is indicated based on the patient's history, examination, and/ or laboratory findings. Therefore, I recommended admission for additional evaluation. The patient expressed understanding and was agreeable with this plan. The patient was admitted to the hospital in stable condition and sent to a bed under the care of the [facility]. Physician Communication Physician Communication The patient's case including history, pertinent physical examination findings, and laboratory studies were discussed with Irasema the nurse practitioner. It was agreed that the patient would be admitted to the [facility] hospitalist service. Diagnosis Primary Impression: COPD exacerbation Admitting Information Admitting Physician Requests: Observation Florence Chambers MD Nov 03, 2017 05:57
[2017-11-03 06:13] LABS: AUTOMATED NEUTROPHIL # 5.9 TH/MM3 (1.8-7.7); BASOPHIL % 0.3 % (0.0-2.0); EOSINOPHIL # 0.1 TH/MM3 (0-0.4); EOSINOPHIL % 0.9 % (0.0-4.0); HEMATOCRIT 29.2 % (39.0-51.0); HEMOGLOBIN 10.2 GM/DL (13.0-17.0); LYMPH % 14.2 % (9.0-44.0); LYMPHOCYTE # 1.1 TH/MM3 (1.0-4.8); MEAN CELL VOLUME 84.8 FL (80.0-100.0); MEAN CORPUSCULAR HEMOGLOBIN 29.5 PG (27.0-34.0); MEAN CORPUSCULAR HGB CONC 34.8 % (32.0-36.0); MEAN PLATELET VOLUME 8.3 FL (7.0-11.0); MONOCYTE # 0.7 TH/MM3 (0-0.9); NEUT % 75.6 % (16.0-70.0); PLATELET COUNT 103 TH/MM3 (150-450); RED BLOOD COUNT 3.45 MIL/MM3 (4.50-5.90); RED CELL DISTRIBUTION WIDTH 16.3 % (11.6-17.2); WHITE BLOOD COUNT 7.8 TH/MM3 (4.0-11.0)
[2017-11-03] MEDS: RESP: ALBUTEROL 2.5 MG/IPRATROPIUM 0.5 MG NEB (SCH) INH (06:16)
--- NOTE | 2017-11-03 06:25 | RADRPT ---
EXAM DATE: 11/03/2017 6:02 AM EDT AGE/SEX: 67 years / Male INDICATIONS: Shortness of breath. CLINICAL DATA: This is the patient's initial encounter. Patient reports that signs and symptoms have been present for 2 days and indicates a pain score of 0/10. MEDICAL/SURGICAL HISTORY: Hypertension. Diabetes mellitus type II. Chronic obstructive pulmon yonis disease. Smoker. None. COMPARISON: [facility] [place], CHEST SINGLE AP, 04/02/2017. . FINDINGS: A single AP view of the chest demonstrates the lungs to be symmetrically aerated without evidence of mass, infiltrate or effusion. The cardiomediastinal contours are unremarkable. Osseous structures a re intact. Numerous healed left-sided rib fractures CONCLUSION: Healed left-sided rib fractures. Lungs are clear. Electronically signed by: Grant Martinez MD 11/03/2017 6:23 AM EDT
[2017-11-03 06:28] LABS: ALT (GPT) 73 U/L (12-78); AST (GOT) 62 U/L (15-37); BICARBONATE 20.2 MEQ/L (21.0-32.0); BLOOD UREA NITROGEN 13 MG/DL (7-18); CALCIUM 7.7 MG/DL (8.5-10.1); CHLORIDE 107 MEQ/L (98-107); CREATININE 0.76 MG/DL (0.60-1.30); GLOMERULAR FILTRATION RATE 103 ML/MIN (>89); GLUCOSE,RANDOM 278 MG/DL (74-106); MAGNESIUM 1.4 MG/DL (1.5-2.5); SODIUM (NA) 137 MEQ/L (136-145)
[2017-11-03 06:31] LABS: ALKALINE PHOSPHATASE 159 U/L (45-117); TOTAL BILIRUBIN ADULT 0.8 MG/DL (0.2-1.0); TOTAL PROTEIN 7.1 GM/DL (6.4-8.2); TROPONIN I 0.05 NG/ML (0.02-0.05)
[2017-11-03 06:33] LABS: INTERNATIONAL NORMALIZED RATIO 1.2 RATIO; PROTHROMBIN TIME - PATIENT 11.8 SEC (9.8-11.6)
[2017-11-03 06:56] LABS: D-DIMER 0.9 MG/L FEU (0.00-0.50)
[2017-11-03] MEDS ORDERED: ACETAMINOPHEN 325 MG TAB PO PRN (07:00)
[2017-11-03] MEDS ORDERED: NALOXONE HCL 0.4 MG/ML AMP IV PUSH PRN (07:00)
[2017-11-03] MEDS ORDERED: MAGNESIUM HYDROXIDE SUSP 30 ML CUP PO PRN (07:00)
[2017-11-03] MEDS ORDERED: MAGNESIUM SULFATE 1 GM PREMIX 100 ML IV ONE (07:15)
--- NOTE | 2017-11-03 07:55 | RADRPT ---
EXAM DATE: 11/03/2017 7:49 AM EDT AGE/SEX: 67 years / Male INDICATIONS: Bilateral leg swelling. CLINICAL DATA: This is the patient's subsequent encounter. Patient reports that signs and symptoms h ave been present for 1 day and indicates a pain score of 4/10. MEDICAL/SURGICAL HISTORY: Hypertension. Hypercholesterolemia. Chronic obstructive pulmonary d isease. Glasses. Dentures. DVT. Hyperlipidemia. Pancreatitis. GERD. Renal disease. Arthritis. Diabet es. Bladder cancer. Cirrhosis. Blood transfusions. Hepatitis C. Cholecystectomy. Appendectomy. Spl enectomy. Tympanostomy tube. Back surgery x2. Cardiac catheterization. Bilateral knee replacement. L eft hand surgery. Bowel resection. COMPARISON: [facility] [place], US LEG BILATERAL VENOUS DOPPLER, 03/24/2017. . TECHNIQUE: Venous ultrasound of both lower extremities was performed from the inguinal ligament to t he proximal calf. Real-time, color Doppler and spectral tracing, compression and augmentation techni ques were used. FINDINGS: Right Leg: Normal compression of the deep venous system from the inguinal region to the proximal michelle f. No echogenic clot is seen. Normal response of the venous system to augmentation and respiration. Left Leg: Deep venous system is patent and the left leg with good augmentable flow. Other: None. CONCLUSION: Negative for deep venous thrombosis. Parker Way MD FACR Electronically signed by: Parekr Way MD 11/03/2017 7:53 AM EDT
[2017-11-03] MEDS: SODIUM CHLORIDE 0.9% FLUSH 10 ML FLUSH IV FLUSH SCH ×2 (09:00→21:39)
[2017-11-03] MEDS: DOCUSATE SODIUM 50 MG/SENNA 8.6 MG TAB PO SCH ×2 (09:53→21:35)
[2017-11-03] MEDS ORDERED: HYDROmorphone HCL PF 2 MG/ML VIAL IV PUSH ONE (10:45)
[2017-11-03] MEDS: SODIUM CHLORIDE 0.9% FLUSH 10 ML FLUSH IV FLUSH PRN ×2 (10:52→13:38)
[2017-11-03] MEDS ORDERED: REMOVE OLD LIDOCAINE PATCH T-DERMAL SCH ×2 (11:00→21:00)
--- NOTE | 2017-11-03 11:48 | RADRPT ---
EXAM DATE: 11/03/2017 11:41 AM EDT AGE/SEX: 67 years / Male INDICATIONS: Dyspnea with increased labs. CLINICAL DATA: This is the patient's initial encounter. Patient reports that signs and symptoms have been present for 1 day and indicates a pain score of 0/10. MEDICAL/SURGICAL HISTORY: Chronic obstructive pulmonary disease. Hepatitis C. Hepatitis B. H ypertension, diabetes, cirrhosis, esophageal varices and spinal osteomyelitis. Appendectomy. Colon resection. Cholecystectomy. Left hand surgery, hernia repair, lumbar laminectomy, tympanostomy tube placement and spleen reconstruction. COMPARISON: [facility] – [place], CHEST SINGLE AP, 11/03/2017. . DOSE: 0.9 mCi Tc99m DTPA aerosol 8.7 mCi Tc99m MAA IV TECHNIQUE: Following five minutes of tidal breathing of DTPA aerosol, planar images of the lungs wer e performed in eight projections. The patient was then injected with MAA, and eight-view perfusion s can was performed. FINDINGS: There is a homogeneous pattern of aerosol delivery to the periphery of both lungs. No focal ventilat ory defects are seen. The perfusion lung scan demonstrates a homogenous pattern of uptake in both lungs. No segmental or s ubsegmental defects are seen. CONCLUSION: 1. Negative examination. Electronically signed by: Natalio Way MD 11/03/2017 11:46 AM EDT
[2017-11-03] MEDS ORDERED: MORPHINE SULFATE 15 MG TAB PO PRN (12:00)
[2017-11-03] MEDS ORDERED: DIAZEPAM 5 MG TAB PO PRN (12:00)
[2017-11-03] MEDS ORDERED: ONDANSETRON ODT 4 MG TAB SL PRN (12:00)
[2017-11-03] MEDS ORDERED: HYDROmorphone HCL 4 MG TAB PO PRN (12:00)
--- NOTE | 2017-11-03 12:05 | HHI.HP ---
[facility] Unknown Admission Diagnosis COPD exacerbation Diagnoses: Chief Complaint: leg swelling Travel History International Travel<30 Days: No Contact w/Intl Traveler <30 Da: No Traveled to Known Affected Are: No History of Present Illness 67-year-old male being admitted for possible COPD exacerbation. Is very difficult historian. History is gathered otherwise from emergency room records. Patient was in usual state of health until about a few days ago and began experiencing lower extremity swelling and increased cough and shortness of breath. Denies having any chest pain. This chest pain is aggravated with body positioning. In the emergency department he was found to be wheezing partially , will start on duo nebs and steroids. EKG which I independently reviewed is negative for any ischemic changes. D-dimer was slightly elevated at 0.90. Review of Systems Except as stated in HPI: all other systems reviewed are Neg Past Family Social History Past Medical History Diabetes Chronic pain COPD Hepatitis C Osteomyelitis Allergies: Coded Allergies: Iodinated Contrast- Oral and IV Dye (Unverified Allergy, Severe, rash/ flush, 11/03/17) butorphanol (Unverified Allergy, Severe, rash, 11/03/17) codeine (Unverified Allergy, Severe, breathing probs, 11/03/17) pentazocine (Unverified Allergy, Severe, breathing probs, 11/03/17) Family History Pancreatic cancer, liver cancer Social History Patient actively smokes, lives alone Denies illicit drug use Physical Exam Vital Signs Vital Signs Date Time Temp Pulse Resp B/P (MAP) Pulse Ox O2 Delivery O2 Flow Rate FiO2 11/03/17 09:40 97.8 97 18 140/73 (95) 98 11/03/17 08:30 11/03/17 07:30 97 22 160/84 (109) 100 Room Air 11/03/17 06:05 95 20 135/81 (99) 98 Room Air 11/03/17 06:01 95 Room Air 11/03/17 05:23 98.5 114 20 167/79 (108) 99 Physical Exam VS: afebrile GENERAL: Thin male, lying in bed, awake, alert, quite restless SKIN: Warm and dry. EYES: No scleral icterus. No injection or drainage. ENT: No nasal bleeding or discharge. Mucous membranes pink and moist. CARDIOVASCULAR: Regular rate and rhythm. no murmurs RESPIRATORY: No accessory muscle use. Clear to auscultation. Breath sounds equal bilaterally. GASTROINTESTINAL: Abdomen soft, is mild tenderness to palpation which appears to be in muscular in nature as opposed to visceral. Nondistended Extremities: No clubbing, cyanosis, or edema. No obvious deformities. MUSCULOSKELETAL: Has tenderness to palpation over lower bilateral rib cage and over intra-abdominal muscles. Adequate muscle bulk and tone for age and habitus NEUROLOGICAL: Awake and alert. No obvious cranial nerve deficits. No facial droop nor slurred speech noted. PSYCHIATRIC: Very anxious Laboratory Laboratory Tests Test 11/03/17 05:52 White Blood Count 7.8 Red Blood Count 3.45 Hemoglobin 10.2 Hematocrit 29.2 Mean Corpuscular Volume 84.8 Mean Corpuscular Hemoglobin 29.5 Mean Corpuscular Hemoglobin Concent 34.8 Red Cell Distribution Width 16.3 Platelet Count 103 Mean Platelet Volume 8.3 Neutrophils (%) (Auto) 75.6 Lymphocytes (%) (Auto) 14.2 Monocytes (%) (Auto) 9.0 Eosinophils (%) (Auto) 0.9 Basophils (%) (Auto) 0.3 Neutrophils # (Auto) 5.9 Lymphocytes # (Auto) 1.1 Monocytes # (Auto) 0.7 Eosinophils # (Auto) 0.1 Basophils # (Auto) 0.0 CBC Comment DIFF FINAL Differential Comment Prothrombin Time 11.8 Prothromb Time International Ratio 1.2 Activated Partial Thromboplast Time 29.3 D-Dimer Quantitative (PE/DVT) 0.90 Blood Urea Nitrogen 13 Creatinine 0.76 Random Glucose 278 Total Protein 7.1 Albumin 3.0 Calcium Level 7.7 Magnesium Level 1.4 Alkaline Phosphatase 159 Aspartate Amino Transf (AST/SGOT) 62 Alanine Aminotransferase (ALT/SGPT) 73 Total Bilirubin 0.8 Sodium Level 137 Potassium Level 3.6 Chloride Level 107 Carbon Dioxide Level 20.2 Anion Gap 10 Estimat Glomerular Filtration Rate 103 Total Creatine Kinase 199 Creatine Kinase MB 2.5 Troponin I 0.05 C-Reactive Protein 1.60 B-Type Natriuretic Peptide 40 Lipase 61 Result Diagram: 11/03/17 0552 11/03/17 0552 Imaging Last 24 hours Impressions Lung Scan-VQ Nuclear Medicine 11/03/17 0710 Impressions: CONCLUSION: 1. Negative examination. Chest X-Ray 11/03/17 0543 Signed Impressions: CONCLUSION: Healed left-sided rib fractures. Lungs are clear. Lower Extremity Ultrasound 11/03/17 0000 Signed Impressions: CONCLUSION: Negative for deep venous thrombosis. Parker Way MD FACR Caprini VTE Risk Assessment Caprini VTE Risk Assessment: Mod/High Risk (score >= 2) Caprini Risk Assessment Model Point Value = 1 Point Value = 2 Point Value = 3 Point Value = 5 Age 41-60 Minor surgery BMI > 25 kg/m2 Swollen legs Varicose veins or History of unexplained or recurrent spontaneous Oral contraceptives or hormone replacement Sepsis (< 1 month) Serious lung disease, including pneumonia (< 1 month) Abnormal pulmonary function Acute myocardial infarction Congestive heart failure (< 1 month) History of inflammatory bowel disease Medical patient at bed rest Age 61-74 Arthroscopic surgery Major open surgery (> 45 min) Laparoscopic surgery (> 45 min) Malignancy Confined to bed (> 72 hours) Immobilizing plaster cast Central venous access Age >= 75 History of VTE Family history of VTE Factor V Leiden Prothrombin [id number] Lupus anticoagulant Anticardiolipin antibodies Elevated serum homocysteine Heparin-induced thrombocytopenia Other congenital or acquired thrombophilia Stroke (< 1 month) Elective arthroplasty Hip, pelvis, or leg fracture Acute spinal cord injury (< 1 month) Prophylaxis Regimen Total Risk Factor Score Risk Level Prophylaxis Regimen 0-1 Low Early ambulation 2 Moderate Order ONE of the following: *Sequential Compression Device (SCD) *Heparin 5000 units SQ BID 3-4 Higher Order ONE of the following medications: *Heparin 5000 units SQ TID *Enoxaparin/Lovenox 40 mg SQ daily (WT < 150 kg, CrCl > 30 mL/min) *Enoxaparin/Lovenox 30 mg SQ daily (WT < 150 kg, CrCl > 10-29 mL/min) *Enoxaparin/Lovenox 30 mg SQ BID (WT < 150 kg, CrCl > 30 mL/min) AND/OR *Sequential Compression Device (SCD) 5 or more Highest Order ONE of the following medications: *Heparin 5000 units SQ TID (Preferred with Epidurals) *Enoxaparin/Lovenox 40 mg SQ daily (WT < 150 kg, CrCl > 30 mL/min) *Enoxaparin/Lovenox 30 mg SQ daily (WT < 150 kg, CrCl > 10-29 mL/min) *Enoxaparin/Lovenox 30 mg SQ BID (WT < 150 kg, CrCl > 30 mL/min) AND *Sequential Compression Device (SCD) Assessment and Plan Assessment and Plan 67-year-old male admitted for suspected COPD exacerbation SOB -tx for acute COPD at time of admission, much improved w/ steroids and duonebs -VQ scan neg Lower extremity edema -maybe depdendent vs secondary to right-sided heart failure is most recent echocardiogram showed intact EF 7 months ago, may consider low-dose Lasix Chest pain -Obvious musculoskeletal source likely secondary to costochondritis/coughing -Lidocaine patch Anxiety/chronic pain -Resume home medications Diabetes -Resume home [facility] low-dose sliding scale w/ Pedro Romero MD Nov 03, 2017 12:05
[2017-11-03] MEDS: LIDOCAINE HCL 5% PATCH T-DERMAL SCH (13:37)
[2017-11-03] MEDS: GABAPENTIN 300 MG CAP PO SCH ×2 (13:38→21:35)
[2017-11-03] MEDS: ASPIRIN EC 81 MG TABEC PO SCH (13:38)
[2017-11-03] MEDS: FERROUS SULFATE 325 MG (65 MG ELEMENTAL IRON) TAB PO SCH ×2 (13:38→15:58)
[2017-11-03] MEDS: TENOFOVIR DISOPROXIL FUMARATE 300 MG TAB PO SCH (13:38)
[2017-11-03] MEDS ORDERED: methylPREDNISolone SOD SUCC 40 MG/1 ML VIAL IV PUSH SCH (14:00)
[2017-11-03] MEDS ORDERED: POTASSIUM CHLORIDE 20 MEQ CONTROLLED RELEASE TAB PO ONE (14:30)
[2017-11-03] MEDS ORDERED: DEXTROSE 50% IN WATER 50 ML VIAL(D50) IV PUSH PRN (14:30)
[2017-11-03] MEDS ORDERED: GLUCAGON 1 MG/ML VIAL OTHER PRN (14:30)
[2017-11-03] MEDS ORDERED: FUROSEMIDE 40 MG/4 ML VIAL IV PUSH ONE (14:30)
--- NOTE | 2017-11-03 15:07 | HHI.DCPOC ---
Discharge Care Plan Diagnosis: (1) Costochondritis Goals to Promote Your Health * To prevent worsening of your condition and complications * To maintain your health at the optimal level Directions to Meet Your Goals Take your medications as prescribed Follow your dietary instruction Follow activity as directed Keep your appointments as scheduled Take your immunizations and boosters as scheduled If your symptoms worsen call your PCP, if no PCP go to Urgent Care Center or Emergency Room Smoking is Dangerous to Your Health. Avoid second hand smoke Call the 24-hour hour crisis hotline for domestic abuse at Pedro Lang MD Nov 03, 2017 15:07
[2017-11-03] MEDS: INSULIN NovoLIN REGULAR SUPPLEMENTAL SCALE SQ SCH ×2 (17:53→21:36)
[2017-11-03] MEDS ORDERED: TAMSULOSIN HCL 0.4 MG CAP PO SCH (21:00)
[2017-11-03] MEDS: FAMOTIDINE 20 MG TAB PO SCH (21:35)
[2017-11-03] MEDS: INSULIN DETEMIR 100 UNITS/ML VIAL SQ SCH (21:35)
[2017-11-03] MEDS: BACLOFEN 10 MG TAB PO SCH (21:35)
[2017-11-03] MEDS: BUDESONIDE-FORMOTEROL 160/4.5 MCG INHALER INH SCH (21:35)
--- NOTE | 2017-11-03 22:59 | EKG ---
Date Performed: 11/03/2017 Time Performed: 06:02:03 PTAGE: 67 years EKG: Sinus rhythm MODERATE INTRAVENTRICULAR CONDUCTION DELAY BORDERLINE ECG PREVIOUS TRACING : 03/26/2017 11.02 DOCTOR: Indy Zurita Interpretating Date/Time 11/03/2017 22:53:31
[2017-11-04 01:20] VITALS: PULSE 82
[2017-11-04 04:00] VITALS: BP 131/63; PULSE 93; RESP 17; TEMP 98.7; O2SAT 98
[2017-11-04] MEDS: GABAPENTIN 300 MG CAP PO SCH (06:36)
[2017-11-04 07:24] VITALS: PULSE 91
[2017-11-04] MEDS: INSULIN NovoLIN REGULAR SUPPLEMENTAL SCALE SQ SCH (08:00)
[2017-11-04 08:26] VITALS: BP 153/67; PULSE 81; RESP 18; TEMP 98.4; O2SAT 94
[2017-11-04] MEDS ORDERED: INSULIN DETEMIR 100 UNITS/ML VIAL SQ SCH (08:45)
[2017-11-04] MEDS ORDERED: METOPROLOL TARTRATE 100 MG TAB PO SCH (09:00)
[2017-11-04 09:04] LABS: AUTOMATED NEUTROPHIL # 5.4 TH/MM3 (1.8-7.7); BASOPHIL % 0.4 % (0.0-2.0); EOSINOPHIL % 0.3 % (0.0-4.0); HEMATOCRIT 29.7 % (39.0-51.0); HEMOGLOBIN 10.1 GM/DL (13.0-17.0); LYMPH % 20.5 % (9.0-44.0); LYMPHOCYTE # 1.6 TH/MM3 (1.0-4.8); MEAN CELL VOLUME 85.5 FL (80.0-100.0); MEAN CORPUSCULAR HEMOGLOBIN 29.2 PG (27.0-34.0); MEAN CORPUSCULAR HGB CONC 34.2 % (32.0-36.0); MEAN PLATELET VOLUME 7.9 FL (7.0-11.0); MONO % 7.7 % (0.0-8.0); MONOCYTE # 0.6 TH/MM3 (0-0.9); NEUT % 71.1 % (16.0-70.0); PLATELET COUNT 103 TH/MM3 (150-450); RED BLOOD COUNT 3.47 MIL/MM3 (4.50-5.90); RED CELL DISTRIBUTION WIDTH 15.7 % (11.6-17.2); WHITE BLOOD COUNT 7.6 TH/MM3 (4.0-11.0)
[2017-11-04] MEDS: FAMOTIDINE 20 MG TAB PO SCH (09:15)
[2017-11-04] MEDS: ASPIRIN EC 81 MG TABEC PO SCH (09:15)
[2017-11-04] MEDS: TENOFOVIR DISOPROXIL FUMARATE 300 MG TAB PO SCH (09:15)
[2017-11-04] MEDS: SODIUM CHLORIDE 0.9% FLUSH 10 ML FLUSH IV FLUSH SCH (09:16)
[2017-11-04] MEDS: BACLOFEN 10 MG TAB PO SCH (09:16)
[2017-11-04] MEDS: INSULIN DETEMIR 100 UNITS/ML VIAL SQ SCH (09:17)
[2017-11-04] MEDS: LIDOCAINE HCL 5% PATCH T-DERMAL SCH (09:17)
[2017-11-04] MEDS: DOCUSATE SODIUM 50 MG/SENNA 8.6 MG TAB PO SCH (09:18)
[2017-11-04] MEDS: BUDESONIDE-FORMOTEROL 160/4.5 MCG INHALER INH SCH (09:18)
[2017-11-04 09:43] LABS: BICARBONATE 27.3 MEQ/L (21.0-32.0); CALCIUM 8.4 MG/DL (8.5-10.1); CREATININE 0.75 MG/DL (0.60-1.30)
[2017-11-04] MEDS ORDERED: FURO20TA PO (09:43)
[2017-11-04] MEDS ORDERED: POTA10TA2 PO (09:45)
--- NOTE | 2017-11-04 09:47 | HHI.PR ---
Subjective Remarks Nursing denies any deteriorations nursing denies any deterioration since last night. Patient himself says he feels much better than yesterday. His diffuse body aches including his chest abdomen and legs are much improved, he does verbally affirm that it was reproducible when I palpated his torso and abdomen. Says his lower extremity swelling is improved. Objective Vital Signs Date Time Temp Pulse Resp B/P (MAP) Pulse Ox O2 Delivery O2 Flow Rate FiO2 11/04/17 08:26 98.4 81 18 153/67 (95) 94 11/04/17 07:24 91 11/04/17 04:00 98.7 93 17 131/63 (85) 98 11/04/17 01:20 82 11/03/17 23:21 98.7 86 16 141/68 (92) 98 11/03/17 22:10 98 11/03/17 19:59 98.4 92 16 133/64 (87) 98 11/03/17 18:43 99.1 90 20 176/82 (113) 99 11/03/17 13:58 98.3 93 18 169/82 (111) 99 11/03/17 11:03 125 I/O 11/03/17 11/03/17 11/03/17 11/04/17 11/04/17 11/04/17 07:00 15:00 23:00 07:00 15:00 23:00 Intake Total 500 ml 50 ml Output Total 1 ml Balance 500 ml 50 ml -1 ml Intake IV Total 500 ml 50 ml Output Stool Total 1 ml Result Diagram: 11/04/17 0830 11/03/17 0552 Objective Remarks Normal sized looking legs today. Heart sounds regular rate rhythm Clear lungs bilaterally, unlabored breathing Normal-appearing calm demeanor today A/P Assessment and Plan 67-year-old male admitted for suspected COPD exacerbation SOB -resolved. Lower extremity edema -resolved w/ lasix. may have possible diastolic HF Chest pain -much improved. Pt has met maximal benefit from hospitalization and is clinically stable for discharge. Pedro Lang MD Nov 04, 2017 09:47
[2017-11-04] MEDS ORDERED: POTASSIUM CHLORIDE 20 MEQ CONTROLLED RELEASE TAB PO ONE (10:00)
[2017-11-04 12:12] VITALS: BP 141/81; PULSE 75; RESP 18; TEMP 98.7; O2SAT 98
== END 2017-11-04 12:23 | disposition home or self-care (01) ==
LOC: NEPC 05:19 → NEDA 06:51 → NEPGCP 08:21
PROVIDERS: ADMIT Hospitalist; ATTEND Hospitalist
DX: J44.1 Chronic obstructive pulmonary disease with (acute) exacerbation (principal); F17.210 Nicotine dependence, cigarettes, uncomplicated; F12.90 Cannabis use, unspecified, uncomplicated; R07.9 Chest pain, unspecified; R10.11 Right upper quadrant pain; G62.9 Polyneuropathy, unspecified; B19.20 Unspecified viral hepatitis C without hepatic coma; B19.10 Unspecified viral hepatitis B without hepatic coma; I10 Essential (primary) hypertension; E11.9 Type 2 diabetes mellitus without complications; K74.60 Unspecified cirrhosis of liver; I85.00 Esophageal varices without bleeding; M06.9 Rheumatoid arthritis, unspecified; E78.00 Pure hypercholesterolemia, unspecified; Z79.899 Other long term (current) drug therapy; Z79.4 Long term (current) use of insulin; R00.0 Tachycardia, unspecified; G89.29 Other chronic pain; M86.9 Osteomyelitis, unspecified; F41.9 Anxiety disorder, unspecified; M94.0 Chondrocostal junction syndrome [Tietze]; R94.31 Abnormal electrocardiogram [ECG] [EKG]
CPT/HCPCS: 71045; 78582; 80048; 80053; 82550; 82552; 82948; 83690; 83735; 83880; 84484; 85025; 85379; 85610; 85730; 86140; 93005; 93970; 94640; 94664; 96361; 96365; 96366; 96372; 96375; 96376; 99285; A9540; A9567; G0378; J1170; J1940; J2920; J2930; J3475; J7040

== ENCOUNTER 2017-11-07 00:19 | Emergency (ER) | payer MEDICARE, MEDICAID ==
[~2017-11-07] VITALS: Ht 185.4 cm; Wt 69.9 kg
[~2017-11-07 00:19] MED LIST changes: +FURO20TA PO; +POTA10TA2 PO
[2017-11-07 00:24] VITALS: BP 161/93; PULSE 109; RESP 14; TEMP 98.4; O2SAT 98
[2017-11-07 00:35] VITALS: BP 161/93; PULSE 109; RESP 20; TEMP 98.4; O2SAT 98
[2017-11-07] MEDS ORDERED: SODIUM CHLOR 0.9% 1000 ML INJ 1,000 ML IV ONE (00:52)
--- NOTE | 2017-11-07 00:52 | PD ---
HPI Chief Complaint: Abdominal pain Time Seen by Provider: 00:39 Travel History International Travel<30 days: No Contact w/Intl Traveler<30days: No Traveled to known affect area: No History of Present Illness HPI The patient is a 67-year-old male, insulin-dependent diabetic who has multiple problems including depression, diabetic neuropathy, history of osteomyelitis and discitis cirrhosis, hepatitis B and C and COPD who is apparently just discharged from the hospital 2 days ago. He complains of right upper quadrant pain for the last 2 days. He claims it is a 10/10. He does have nausea without vomiting. He denies drinking any alcohol. He denies any fever. PFSH Past Medical History Arthritis: Yes (RA) Asthma: No Blood Disorders: Yes (VARICES,BANDING IN PAST WITH ERCP) Anxiety: No Depression: No Heart Rhythm Problems: No Cancer: Yes (Bladder Cancer) Cardiac Catheterization: Yes Cardiovascular Problems: Yes (HTN) High Cholesterol: Yes Chemotherapy: No Chest Pain: No Congestive Heart Failure: No Cirrhosis: Yes (END STAGE LIVER DISEASE) COPD: Yes Diabetes: Yes Diminished Hearing: No Deep Vein Thrombosis: Yes Endocrine: Yes Gastrointestinal Disorders: Yes GERD: Yes Genitourinary: Yes Hepatitis: Yes (C) Hiatal Hernia: No Hypertension: Yes Immune Disorder: No Implanted Vascular Access Dvce: Yes Kidney Stones: No Musculoskeletal: Yes Neurologic: Yes Psychiatric: No Reproductive: No Respiratory: Yes Immunizations Current: Yes Pancreatitis: Yes Radiation Therapy: No Renal Failure: No Seizures: No Sickle Cell Disease: No Sleep Apnea: No Thyroid Disease: No Ulcer: No Past Surgical History Abdominal Surgery: Yes (spleen reconstruction, bowel and colon resection, ERCP BANDING) AICD: No Appendectomy: Yes Arteriovenous Shunt: No Body Medical Devices: METAL BAR IN LEFT HAND Cardiac Surgery: No Cholecystectomy: Yes Ear Surgery: No Endocrine Surgery: No Eye Surgery: No Genitourinary Surgery: Yes (Bladder cancer) Gynecologic Surgery: No Insulin Pump: No Joint Replacement: Yes Neurologic Surgery: Yes (BACK SURGERY X 2) Oral Surgery: Yes Pacemaker: No Thoracic Surgery: No Tympanostomy Tube: Yes Other Surgery: Yes (ercp banding, BOWEL RESECTION/ISCHEMIC BOWEL) Social History Alcohol Use: No Tobacco Use: Yes (3 cigs) Substance Use: Yes (MARIJUANA) Allergies-Medications (Allergen,Severity, Reaction): Coded Allergies: Iodinated Contrast- Oral and IV Dye (Unverified Allergy, Severe, rash/ flush, 11/03/17) butorphanol (Unverified Allergy, Severe, rash, 11/03/17) codeine (Unverified Allergy, Severe, breathing probs, 11/03/17) pentazocine (Unverified Allergy, Severe, breathing probs, 11/03/17) Reported Meds & Prescriptions Reported Meds & Active Scripts Active Potassium Chloride ER (Potassium Chloride) 10 Meq Tab 10 Meq PO DAILY Furosemide 20 Mg Tab 20 Mg PO DAILY PRN Viread (Tenofovir Disoproxil Fumarate) 300 Mg Tab 300 Mg PO DAILY [address] (Duloxetine HCl) 20 Mg Capdr 20 Mg PO DAILY Novolog Mix 70-30 FlexPen Inj (Insulin Aspart Protam-Asp 70-30 Inj) 300 Unit/3 Ml Pen 1 Units SQ SLIDING SCALE Dilaudid (Hydromorphone HCl) 4 Mg Tab 4 Mg PO Q6HR PRN Morphine IR (Morphine Sulfate) 15 Mg Tab 15 Mg PO BID PRN Metoprolol Tartrate 100 Mg Tab 100 Mg PO DAILY Famotidine 20 Mg Tab 20 Mg PO BID Neurontin (Gabapentin) 300 Mg Cap 300 Mg PO Q8HR Ferosul (Ferrous Sulfate) 325 Mg (65 Mg Iron) Tablet 325 Mg PO BID@12,17 Baclofen 10 Mg Tab 10 Mg PO Q12HR 30 Days Flomax (Tamsulosin HCl) 0.4 Mg Cap 0.4 Mg PO HS Levemir Inj (Insulin Detemir) 1,000 unit/ 10 ML Vial 8 Units SQ BID 30 Days Do not mix with any other Insulin. Symbicort Inh (Budesonide/Formoterol Fumarate) 160-4.5 Mcg/Act Aero 1 Puff INH Q12HR [Megestrol Liq] 400 MG/10 ML Susp 400 Mg PO DAILY 30 Days [Budeson-Formot 160-4.5 Mcg Inh] 60 PUFF Aero 1 Puff INH Q12HR [address] (Aspirin) 81 Mg Tabdr 81 Mg PO DAILY 30 Days Commode 3-in-1 (Device) 1 Mis Mis Ea .ROUTE DIRECTED Wheelchair (Device) 1 Mis Mis Ea .ROUTE DIRECTED [Budeson-Formot 160-4.5 Mg Inh] 60 PUFF Aero 1 Puff INH Q12HR 30 Days Wheelchair (Device) 1 Mis Mis Ea .ROUTE DIRECTED Commode 3-in-1 (Device) 1 Mis Mis Ea .ROUTE DIRECTED Walker Rolling/GetGo (Device) 1 Mis Mis Ea .ROUTE DIRECTED Review of Systems Except as stated in HPI: all other systems reviewed are Neg Physical Exam Narrative GENERAL: The patient is alert, oriented 3 in moderate to severe distress with his right upper quadrant pain. His vital signs show heart rate of 109 and blood pressure 161/93 but the rest of the vital signs are normal. He does not smell of acetone. He does appear to be moderately dehydrated. He appears thin. SKIN: Focused skin assessment warm/dry. Multiple skin puncture wounds are present which he states he got on the hospital as IV attempt sites. HEAD: Atraumatic. Normocephalic. EYES: Pupils equal and round. No scleral icterus. No injection or drainage. ENT: No nasal bleeding or discharge. Mucous membranes pink and moist. NECK: Trachea midline. No JVD. CARDIOVASCULAR: Regular rate and rhythm. No murmur appreciated. RESPIRATORY: No accessory muscle use. Clear to auscultation. Breath sounds equal bilaterally. GASTROINTESTINAL: Abdomen soft, non-tender, nondistended. Hepatic and splenic margins not palpable. MUSCULOSKELETAL: No obvious deformities. No clubbing. No cyanosis. No edema. NEUROLOGICAL: Awake and alert. No obvious cranial nerve deficits. Motor grossly within normal limits. Normal speech. PSYCHIATRIC: Appropriate mood and affect; insight and judgment normal. Data Data Last Documented VS Vital Signs Date Time Temp Pulse Resp B/P (MAP) Pulse Ox O2 Delivery O2 Flow Rate FiO2 11/07/17 01:30 92 18 159/92 (114) 97 Room Air 11/07/17 00:35 98.4 Orders Orders Complete Blood Count With Diff (11/07/17 00:52) Comprehensive Metabolic Panel (11/07/17 00:52) Magnesium (Mg) (11/07/17 00:52) Beta Hydroxybutyrate (Acetone) (11/07/17 00:52) Lactic Acid (11/07/17 00:52) Urinalysis - C+S If Indicated (11/07/17 00:52) Ecg Monitoring (11/07/17 00:52) Iv Access Insert/Monitor (11/07/17 00:52) Oximetry (11/07/17 00:52) NPO (11/07/17 00:52) Sodium Chloride 0.9% Flush (Ns Flush) (11/07/17 01:00) Sodium Chlor 0.9% 1000 Ml Inj (Ns 1000 M (11/07/17 00:52) Troponin I (11/07/17 00:52) Lipase (11/07/17 00:52) Morphine Inj (Morphine Inj) (11/07/17 01:00) Prochlorperazine Inj (Compazine Inj) (11/07/17 01:00) Ct Abd/Pel W/O Iv Contrast (11/07/17 01:30) Sodium Chlor 0.9% 1000 Ml Inj (Ns 1000 M (11/07/17 02:45) Labs Laboratory Tests Test 11/07/17 01:01 White Blood Count 6.4 TH/MM3 Red Blood Count 4.01 MIL/MM3 Hemoglobin 11.6 GM/DL Hematocrit 33.8 % Mean Corpuscular Volume 84.4 FL Mean Corpuscular Hemoglobin 29.0 PG Mean Corpuscular Hemoglobin Concent 34.4 % Red Cell Distribution Width 15.1 % Platelet Count 127 TH/MM3 Mean Platelet Volume 7.8 FL Neutrophils (%) (Auto) 68.3 % Lymphocytes (%) (Auto) 22.9 % Monocytes (%) (Auto) 7.8 % Eosinophils (%) (Auto) 0.9 % Basophils (%) (Auto) 0.1 % Neutrophils # (Auto) 4.3 TH/MM3 Lymphocytes # (Auto) 1.5 TH/MM3 Monocytes # (Auto) 0.5 TH/MM3 Eosinophils # (Auto) 0.1 TH/MM3 Basophils # (Auto) 0.0 TH/MM3 CBC Comment DIFF FINAL Differential Comment Blood Urea Nitrogen 14 MG/DL Creatinine 0.79 MG/DL Random Glucose 187 MG/DL Total Protein 7.6 GM/DL Albumin 2.9 GM/DL Calcium Level 8.1 MG/DL Magnesium Level 1.7 MG/DL Alkaline Phosphatase 164 U/L Aspartate Amino Transf (AST/SGOT) 31 U/L Alanine Aminotransferase (ALT/SGPT) 51 U/L Total Bilirubin 1.2 MG/DL Sodium Level 139 MEQ/L Potassium Level 3.2 MEQ/L Chloride Level 103 MEQ/L Carbon Dioxide Level 28.9 MEQ/L Anion Gap 7 MEQ/L Estimat Glomerular Filtration Rate 98 ML/MIN Lactic Acid Level 1.0 mmol/L Troponin I 0.05 NG/ML Lipase 127 U/L B-Hydroxybutyrate 0.40 MMOL/L [facility] Medical Decision Making Medical Screen Exam Complete: Yes Emergency Medical Condition: Yes Medical Record Reviewed: Yes Interpretation(s) The CBC is normal except for hemoglobin 11.6 and hematocrit of 33.8. The platelet count is 127,000. The complete metabolic profile shows a glucose of 187, albumin 2.9, calcium 8.1, alkaline phosphatase of 164 with total bilirubin 1.2 and potassium 3.2 but is otherwise normal. The troponin I is normal and the beta hydroxy is 0.4. The lipase is normal. The lactic acid is normal. The CT abdomen/pelvis shows nonobstructive bowel gas pattern with anastomotic cliff noted in the ascending colon, residual deformity of the L1 vertebral body which is now sclerotic and status post cholecystectomy. No acute changes noted. Differential Diagnosis Pancreatitis, diabetes mellitus poor control, dehydration, electrolyte disorder , small bowel obstruction-unlikely, sepsis-unlikely Narrative Course The patient has a remarkably normal CAT scan for him. At this time I cannot find any reason that admission would benefit him. He will be given Percocet 5 for pain and Phenergan for nausea and follow-up with his primary care physician on Friday. Needs to increase his liquid intake as he was Diagnosis Primary Impression: Abdominal pain Additional Impression: Mild dehydration Med/Other Pt SpecificInfo: Prescription(s) given Scripts Promethazine (Phenergan) 25 Mg Tablet 25 MG PO Q6H Y for NAUSEA OR VOMITING, #30 TAB 0 Refills Prov: Joe Triplett MD 11/07/17 Oxycodone-Acetaminophen (Percocet) 5-325 mg Tab 1 TAB PO Q6H Y for PAIN, #21 TAB 0 Refills Prov: Joe Triplett MD 11/07/17 Disposition: 01 DISCHARGE HOME Condition: Stable Joe Triplett MD Nov 07, 2017 00:52
[2017-11-07] MEDS ORDERED: MORPHINE SULFATE 8 MG/ML INJ IV PUSH ONE (01:00)
[2017-11-07] MEDS ORDERED: SODIUM CHLORIDE 0.9% FLUSH 10 ML FLUSH IVF PRN (01:00)
[2017-11-07] MEDS ORDERED: PROCHLORPERAZINE INJ 10 MG/2 ML VIAL IV PUSH ONE (01:00)
[2017-11-07 01:17] LABS: AUTOMATED NEUTROPHIL # 4.3 TH/MM3 (1.8-7.7); BASOPHIL % 0.1 % (0.0-2.0); EOSINOPHIL # 0.1 TH/MM3 (0-0.4); EOSINOPHIL % 0.9 % (0.0-4.0); HEMATOCRIT 33.8 % (39.0-51.0); HEMOGLOBIN 11.6 GM/DL (13.0-17.0); LYMPH % 22.9 % (9.0-44.0); LYMPHOCYTE # 1.5 TH/MM3 (1.0-4.8); MEAN CELL VOLUME 84.4 FL (80.0-100.0); MEAN CORPUSCULAR HGB CONC 34.4 % (32.0-36.0); MEAN PLATELET VOLUME 7.8 FL (7.0-11.0); MONO % 7.8 % (0.0-8.0); MONOCYTE # 0.5 TH/MM3 (0-0.9); NEUT % 68.3 % (16.0-70.0); PLATELET COUNT 127 TH/MM3 (150-450); RED BLOOD COUNT 4.01 MIL/MM3 (4.50-5.90); RED CELL DISTRIBUTION WIDTH 15.1 % (11.6-17.2); WHITE BLOOD COUNT 6.4 TH/MM3 (4.0-11.0)
[2017-11-07 01:24] LABS: CHLORIDE 103 MEQ/L (98-107); SODIUM (NA) 139 MEQ/L (136-145)
[2017-11-07 01:27] LABS: ALBUMIN 2.9 GM/DL (3.4-5.0); BICARBONATE 28.9 MEQ/L (21.0-32.0); BLOOD UREA NITROGEN 14 MG/DL (7-18); CALCIUM 8.1 MG/DL (8.5-10.1); GLUCOSE,RANDOM 187 MG/DL (74-106); MAGNESIUM 1.7 MG/DL (1.5-2.5)
[2017-11-07 01:30] VITALS: BP 159/92; PULSE 92; RESP 18; O2SAT 97
[2017-11-07 01:30] LABS: ALT (GPT) 51 U/L (12-78); AST (GOT) 31 U/L (15-37); CREATININE 0.79 MG/DL (0.60-1.30); GLOMERULAR FILTRATION RATE 98 ML/MIN (>89)
[2017-11-07 01:32] LABS: TOTAL BILIRUBIN ADULT 1.2 MG/DL (0.2-1.0); TOTAL PROTEIN 7.6 GM/DL (6.4-8.2)
[2017-11-07 01:33] LABS: ALKALINE PHOSPHATASE 164 U/L (45-117)
[2017-11-07 01:35] LABS: TROPONIN I 0.05 NG/ML (0.02-0.05)
--- NOTE | 2017-11-07 02:12 | RADRPT ---
EXAM DATE: 11/07/2017 2:04 AM EDT AGE/SEX: 67 years / Male INDICATIONS: Right sided abdominal pain. CLINICAL DATA: This is the patient's initial encounter. Patient reports that signs and symptoms have been present for 1 day and indicates a pain score of 10/10. MEDICAL/SURGICAL HISTORY: Hypertension. Hepatitis B. Hepatitis C. Bladder cancer. Colon re section. Spleen reconstruction. RADIATION DOSE: 13.76 CTDI (mGy) [place] [facility] [place]/20/2017. . TECHNIQUE: Multiple contiguous axial images were obtained through the abdomen. Images were obtained using multiple row detector helical technique. Using automated exposure control and adjustment of the mA and/or kV according to patient size, radiation dose was kept as low as reasonably achievable to o btain optimal diagnostic quality images. DICOM format image data is available electronically for rev iew and comparison. FINDINGS: Lower Lungs: The visualized lower lungs are clear. Liver: The liver has a homogeneous density without space-occupying lesion. There is no dilation of th e biliary tree. The patient is status post cholecystectomy. Spleen: Homogeneous density without enlargement. Pancreas: Unremarkable without mass or calcification. Kidneys: Normal in size and shape. No evidence of mass or hydronephrosis. Adrenal Glands: Unremarkable. Aorta: The aorta and proximal iliac vessels are grossly unremarkable without aneurysmal dilation. Bowel/Mesentery: No oral contrast was given limiting the sensitivity of examination. Anastomotic sut ures are again noted in the region of the descending colon. There is a nonobstructive bowel gas patte rn. Abdominal Wall: Intact. Retroperitoneum: No evidence of adenopathy in the retrocrural, para-aortic, or deep pelvic regions. Bladder: Contours are smooth. Reproductive Organs: No abnormal masses or calcifications seen. Inguinal: The inguinal region is unremarkable without evidence of adenopathy. Bony Structures: Residual deformity of the L1 vertebral body is again noted which is now sclerotic h ealed compared to the prior study CONCLUSION: 1. Nonobstructive bowel gas pattern with anastomotic cliff again noted in the ascending colon. No oral contrast was given. 2. Residual deformity of the L1 vertebral body which is now sclerotic and medial compared to the grant or study. 3. Status post cholecystectomy. Electronically signed by: Jase Estes MD 11/07/2017 2:11 AM EDT
[2017-11-07 02:36] VITALS: BP 173/95; PULSE 86; RESP 18; O2SAT 100
[2017-11-07] MEDS ORDERED: PERC5TAB12 PO (02:42)
[2017-11-07] MEDS ORDERED: PROM25TA10 PO (02:42)
[2017-11-07] MEDS ORDERED: SODIUM CHLOR 0.9% 1000 ML INJ 1,000 ML IV SCH (02:45)
[2017-11-07 03:03] LABS: BILIRUBIN, URINE NEG (NEG); BLOOD, URINE TRACE (NEG); GLUCOSE,URINE NEG (NEG); KETONE, URINE NEG (NEG); NITRITE,URINE NEG (NEG); PH, URINE 6.5 (5.0-8.5); URINE COLOR YELLOW (YELLW/STRAW); URINE LEUKOCYTE ESTERASE NEG (NEG)
[2017-11-07 03:15] LABS: RBC, URINE 0-3 /hpf (0-3); SQUAMOUS EPITHELIAL CELL URINE 0-5 /hpf (0-5); WBC, URINE 0-2 /hpf (0-5)
[2017-11-07 04:02] VITALS: BP 177/95
== END 2017-11-07 04:10 | disposition home or self-care (01) ==
LOC: PHED 00:19
DX: R10.11 Right upper quadrant pain (principal); E86.0 Dehydration; R11.0 Nausea; E11.40 Type 2 diabetes mellitus with diabetic neuropathy, unspecified; E78.00 Pure hypercholesterolemia, unspecified; I10 Essential (primary) hypertension; K74.60 Unspecified cirrhosis of liver; J44.9 Chronic obstructive pulmonary disease, unspecified; M06.9 Rheumatoid arthritis, unspecified; F32.9 Major depressive disorder, single episode, unspecified; F17.210 Nicotine dependence, cigarettes, uncomplicated; Z85.51 Personal history of malignant neoplasm of bladder; Z86.19 Personal history of other infectious and parasitic diseases; Z86.718 Personal history of other venous thrombosis and embolism; Z88.5 Allergy status to narcotic agent; Z79.4 Long term (current) use of insulin; Z79.899 Other long term (current) drug therapy
CPT/HCPCS: 74176; 80053; 81001; 82010; 83605; 83690; 83735; 84484; 85025; 96361; 96374; 99284; J0780; J2270; J7030